=== PATIENT | female | born 1945 | race Caucasian/White ===

== ENCOUNTER 2017-04-16 13:30 | Outpatient (RCR) | payer MEDICARE, OTHER, SELFPAY ==
--- NOTE | 2017-03-06 15:10 | HP.PTEVAL_ITS ---
Patient's Visit Information CARMELO CASTRO is a 71 year old F referred to Physical Therapy by Lalita Stroud MD with a diagnosis of R shoulder strain. Date of Evaluation: 03/06/17 Physical Therapist: Rodger Welch DPT, OC - Visit Plan Frequency: 2x /Week Duration: 4-6 Weeks Plan: 2x/week for 4 -6 weeks. Pt has pacemaker. Focus on activity modification, postural correction and PROm R shoulder for painrelief. Gentle mobs, cross friction massage to R supra and shoulder. Postural and RC strength to tolerance and progress to HEP. pec stretch. ice if sore. - Subjective Subjective: R shoulder hurting for 4-6 weeks insidiously. Pain is anteriorly and toothache constantly. Radiates down to elbow and into neck at times. Arm overhead is worse and curling hair is nearly impossible. Plays alot of computer games and this may be the problem. Lifting things and reaching up is problematic. But I can do it. When it is up it does not hurt, getting it up hurts. Sleep is interrupted not sure if it is due to R shoulder ache. Takes advil rarely for the pain, 1x/week. Not employed. Basic ADL are doable but painful with R UE movement. Plays cards and on computer alot, sometimes it hurts worse. - Pain R shoulder pain. Pain Intensity (Out of 10): 1 Pain Intensity Range: 0, 8 - Objective Trasnfers and ambulation are I. Posture is forward tilted scap and protracted B. Tender to palpation moderately in R supra insertion and biceps tendon. + HK and NEer test R. - ext rotation lag test, - drop arm test. + R empty can. AROM WFL B UE but elevation of R shoulder is painful. reflexes 2/3 bi and tri. sensation EU WNL to gross light touch. Strength shoulder 4- with pain with ext rotation R. Bi and tric 4+ B without pain. wrists symmetrical and not painful. Scap ROM is limited in retraction and depression. - Goals Goal 1:: Painfree at rest and reach up with no more than 2/10 pain. Goal Time Frame: 4-6 Weeks Goal 2:: I approp HEP for posture and strengthening to minimize future problems. Goal Time Frame: 4-6 Weeks Goal 3:: Pt report 90% imporvement in overall condition and no problems sleeping. Goal Time Frame: 4-6 Weeks Goal 4:: Play on computer withuot pain increasing Goal Time Frame: 4-6 Weeks - Rehabilitation Potential Physical Therapy Diagnosis: R shoulder impingement tendonitis supraspinatus Rehabilitation Potential: Good - Anticipated Interventions Patient/Client Instruction: Educate patient on: Condition, Plan of Care For the Purpose of:: To decrease pain, To decrease swelling/inflammation Therapeutic Exercise to Include: Strength training, Flexibilty training, Passive ROM, Scapular Strength/Stabilization For the Purpose of:: To decrease pain, To decrease swelling/inflammation, To improve muscle performance and motor function, To improve ability of physical actions for home/community/work/leisure Manual Therapy Techniques to Include: Mobilization Comment: BRAEDEN oneill, grade 1 mobs R shoulder. For the Purpose of:: To decrease pain, To decrease swelling/inflammation Cryotherapy (ice pack, ice massage): Yes For the Purpose of:: To decrease swelling/inflammation Thank you for the opportunity to evaluate your patient. For Medicare and Medicare HMO plans, please review the plan of care and approve it. It will need to be FAXED BACK to us at [phone] for Medicare purposes. Please let me know if there are questions or concerns regarding this plan of care. Physician Signature: Date:
--- NOTE | 2017-04-16 13:42 | HP.PTREVAL_ITS ---
Lalita Stroud MD, It has been my pleasure to treat CARMELO CASTRO over the last 9 visits for R shoulder strain. Please see the progress note below for an update on the physical therapy plan of care! Subjective: Much better with many thi ngs, but curling hair and pushing door closed still hurt. Hurts to 7+/10. Had massage therapy. Sleep is still mildly interrupted when rolls to right.. HEP: scap ROM, has held off on band at home. Improving slowly and patient does not want further treatment from doctor. Objective/Function: Full aROM elevation slowly but without pain today. Weak in flexion and abd but not overly painful. Ext rotation is minimally painful resisted adn IR not at all. ER is 4-/5 on the right adn left. OVERALL PROGRESSING NICELY AND PT DOES NOT WANT MORE AGGRESSIVE TREATMENT. SHE IS TO CONTINUE WITH HEP AND F/U FOR CHECK UP IN 3 WEEKS. Plan Plan: F/U 3 weeks to progress to bi/tri/mil press if able adn maybe move to GTB. Goals Goal 1:: Painfree at rest and reach up with no more than 2/10 pain. Goal Time Frame: 4-6 Weeks Goal Progress: Goal Met Goal 2:: I approp HEP for posture and strengthening to minimize future problems. Goal Time Frame: 4-6 Weeks Goal Progress: Progressing Goal 3:: Pt report 90% imporvement in overall condition and no problems sleeping. Goal Time Frame: 4-6 Weeks Goal Progress: Progressing Goal 4:: Play on computer withuot pain increasing Goal Time Frame: 4-6 Weeks Goal Progress: Progressing Anticipated Interventions Patient/Client Instruction: Educate patient on: Condition, Plan of Care For the Purpose of:: To decrease pain, To decrease swelling/inflammation Therapeutic Exercise to Include: Strength training, Flexibilty training, Passive ROM, Scapular Strength/Stabilization For the Purpose of:: To decrease pain, To decrease swelling/inflammation, To improve muscle performance and motor function, To improve ability of physical actions for home/community/work/leisure Manual Therapy Techniques to Include: Mobilization Comment: CFM supra, grade 1 mobs R shoulder. For the Purpose of:: To decrease pain, To decrease swelling/inflammation Cryotherapy (ice pack, ice massage): Yes For the Purpose of:: To decrease swelling/inflammation Please do not hesitate to contact me at [phone] by phone or Fax: if you have questions or concerns regarding this new plan of care! Sincerely, Rodger Welch, DPT, OC
--- NOTE | 2017-05-05 15:22 | HP.PT.NRP ---
HP - Discharge Summary (1) - Patient Information CARMELO CASTRO was seen in my office for initial evaluation on 03/06/17. The following Plan of Care was established for this patient: Initial Frequency: 2x /Week Initial Duration: 4-6 Weeks - Anticipated Interventions Patient/Client Instruction: Educate patient on: Condition, Plan of Care For the Purpose of:: To decrease pain, To decrease swelling/inflammation Therapeutic Exercise to Include: Strength training, Flexibilty training, Passive ROM, Scapular Strength/Stabilization For the Purpose of:: To decrease pain, To decrease swelling/inflammation, To improve muscle performance and motor function, To improve ability of physical actions for home/community/work/leisure Manual Therapy Techniques to Include: Mobilization Comment: CFM supra, grade 1 mobs R shoulder. For the Purpose of:: To decrease pain, To decrease swelling/inflammation Cryotherapy (ice pack, ice massage): Yes For the Purpose of:: To decrease swelling/inflammation This patient was last seen in our office 04/16/17. Pertinent comments regarding their Physical therapy will appear below: Pt seen for 9 visits and did very well. Has called to cancel her last f/u as she is feeling better adn does not require further PT. I will discontinue her due to nonattendance. At this point I will be discontinuing this patient from physical therapy. I would be happy to see this patient again in the future if found appropriate by the physician. Thank you! Rodger Welch, DPT, OC
== END 2017-04-16 19:00 | disposition home or self-care (01) ==
LOC: PT 13:30
PROVIDERS: Family Provider Family Medicine; PCP Family Medicine; Visit Provider Family Medicine
DX: S43.401D Unspecified sprain of right shoulder joint, subsequent encounter (principal)
CPT/HCPCS: 97110; 97140; 97161; 97530

== ENCOUNTER → 2017-06-12 12:11 | Outpatient (CLI) | payer MEDICARE, OTHER, SELFPAY ==
[2017-06-12 13:23] LABS: Anion Gap 7 (5-15); BUN 13 mg/dL (7-18); BUN/Creat Ratio 12.6 RATIO (10-20); Calcium,Total 9.4 mg/dL (8.5-10.1); Chloride 102 mmol/L (98-107); Creatinine, Serum 1.03 mg/dL (0.55-1.02); EST Glomerular Filtration Rate 56 mL/min (>60); Est Glom Filt Rate - Afr Amer 68 mL/min (>60); Glucose 114 mg/dL (74-106); Potassium 3.6 mmol/L (3.5-5.1); Sodium Level 140 mmol/L (136-145)
[2017-06-12 13:29] LABS: BNP,B-Type NATRIURETIC PEPTIDE 68.1 pg/mL (0-100)
== END ==
PROVIDERS: Family Provider Family Medicine; PCP Family Medicine; Visit Provider Internal Medicine Cardiovascular Disease
DX: R06.02 Shortness of breath (principal)
CPT/HCPCS: 36415; 80048; 83880

== ENCOUNTER → 2017-09-04 15:40 | Outpatient (CLI) | payer MEDICARE, OTHER, SELFPAY ==
--- NOTE | 2017-09-04 15:40 | DT_ITS ---
This patient was seen during an EMR downtime August 31, 2017 - September 07, 2017. This patient may have a combination of paper and electronic documentation or all paper documentation. All documentation is viewable within the e-chart portion of [employer] for each patient visit.
[2017-09-08 16:49] LABS: AST(SGOT) 26 U/L (15-37); Albumin, Serum 3.8 g/dL (3.2-5.0); Alkaline Phosphatase 85 U/L (45-117); BUN 17 mg/dL (7-18); BUN/Creat Ratio 14.9 RATIO (10-20); Calcium,Total 9.1 mg/dL (8.5-10.1); Creatinine, Serum 1.14 mg/dL (0.55-1.02); EST Glomerular Filtration Rate 50 mL/min (>60); Est Glom Filt Rate - Afr Amer 61 mL/min (>60); Globulin 4.3 g/dL (2.2-4.2); Glucose 96 mg/dL (74-106); Protein, Total 8.1 g/dL (6.4-8.2)
[2017-09-08 16:50] LABS: Alanine Aminotransfer ALT/SGPT 18 U/L (13-56); Anion Gap 9 (5-15); Bilirubin, Direct 0.31 mg/dL (0.00-0.30); Chloride 102 mmol/L (98-107); Cholesterol 107 mg/dL (200); High Density Lipoprotein 26 mg/dL; Potassium 3.5 mmol/L (3.5-5.1); Sodium Level 140 mmol/L (136-145); Triglycerides 163 mg/dL; Very Low Density Lipoprotein 33 mg/dL (5-40)
== END ==
PROVIDERS: Visit Provider Family Medicine
DX: E11.9 Type 2 diabetes mellitus without complications (principal)
CPT/HCPCS: 36415; 80048; 80061; 80076

== ENCOUNTER → 2017-09-23 15:17 | Outpatient (CLI) | payer MEDICARE, OTHER, SELFPAY ==
--- NOTE | 2017-09-23 15:20 | BI_ITS ---
MAMMOGRAPHY - BILATERAL SCREENING REASON FOR EXAM: Female, 72 years old. Routine annual screening examination. PERTINENT HISTORY: Grandmother with breast cancer. Aunt with breast cancer. TECHNIQUE: Digital bilateral breast tanner (3D mammographic acquisition) in the CC and MLO projections. 2-D mediolateral oblique (MLO) and craniocaudad (CC) views of both breasts were obtained. CAD: Full Field Digital Mammography with Computer Added Detection was performed. COMPARISON: Comparison is made with prior study dated February 24, 2012 and July 05, 2010. FINDINGS: Breast Composition: There are scattered areas of fibroglandular density. There is a 6.0 mm x 6.0 mm well-defined nodular density in the deep inferior medial aspect of the right breast. Correlation with ultrasound is recommended. A pacemaker battery pack is seen in the left axillary region. No other significant abnormalities are identified. BI/SCREENING MAMM (CAD), BILAT IMPRESSION: 6 mm x 6 mm nodular density in the deep inferior medial portion of the right breast as described. Correlation with ultrasound is recommended. ASSESSMENT CATEGORY: BIRADS Category 0: Incomplete. Need additional imaging evaluation. A letter regarding these results will be sent to the patient by the facility within 30 days. Approximately 10% of breast cancers are not detected by mammography. A normal mammogram should not delay biopsy of a clinically suspicious abnormality. [id number] Electronically Signed: Nate Walker MD at 7:58 EDT Tel [phone], Service support ,
== END ==
PROVIDERS: Family Provider Family Medicine; PCP Family Medicine; Visit Provider Family Medicine
DX: Z12.31 Encounter for screening mammogram for malignant neoplasm of breast (principal)
CPT/HCPCS: 77063; 77067

== ENCOUNTER → 2017-10-05 14:06 | Outpatient (CLI) | payer MEDICARE, OTHER, SELFPAY ==
--- NOTE | 2017-10-05 14:08 | US_ITS ---
STUDY: ULTRASOUND BREAST - RIGHT REASON FOR EXAM: Female, 72 years old. Abnormal screening mammogram. TECHNIQUE: Axial and longitudinal images of the RIGHT breast were performed with a high resolution ultrasound transducer. COMPARISON: Comparison is made with prior mammogram dated September 23, 2017. FINDINGS: RIGHT Breast: There is a 6 mm x 6 mm x 6 mm complex solid and cystic nodule at the 6:00 position of the breast at 6 cm from the nipple. This may represent an hemorrhagic cyst. A biopsy is recommended for further evaluation. US/Breast Limited Unilateral IMPRESSION: 6 mm x 6 mm x 6 mm complex cystic nodule seen in the inferior aspect of the breast that 6:00 radiant. A biopsy is recommended for further evaluation. ASSESSMENT CATEGORY: BIRADS Category 4: Suspicious - Biopsy Should Be Considered. A letter regarding these results will be sent to the patient by the facility within 30 days. Electronically Signed: Nate Walker MD at 8:18 EDT Tel [phone], Service support ,
== END ==
PROVIDERS: Family Provider Family Medicine; PCP Family Medicine; Visit Provider Family Medicine
DX: R92.2 Inconclusive mammogram (principal)
CPT/HCPCS: 76642

== ENCOUNTER → 2017-10-16 14:35 | Outpatient (CLI) | payer MEDICARE, OTHER, SELFPAY ==
--- NOTE | 2017-10-16 | BRBX_PTH ---
PATIENT: CARMELO CASTRO LOC: [facility] U#:[id number] AGE/SX: 79/F ROOM: RE10/16/[address]: Dr. Brett Bergeron MD : [id number] BED: DIS: SPEC #: [id number] RECD: 10/16/17 14:45 STATUS: MODESTA RENoe #: [id number] GIACOMO: 10/16/17 00:[address]: Brett Bergeron DEPT: SURGICAL PATHOLOGY RECD BY: Luther Johnson ENTERED: 10/16/17 14:46 SP TYPE: BREAST BX OTHR DR: Dr. Lalita Stroud MD Tissues: Right breast, NOS Procedures: Surgery Specimen Level III HEADER OPERATION: Excisional biopsy right breast PRE-OP DIAGNOSIS: Abnormal mammogram R92.8 TISSUE SUBMITTED: Right breast tissue Ischemic time: 30 seconds Fixation time: 6 hours MICROSCOPIC DIAGNOSIS Right breast tissue, excisional biopsy: Epidermal inclusion cyst. SJ:sybil 10/19/17 COMMENT Breast tissue is not identified in the submitted specimen. MICROSCOPIC DESCRIPTION Slides are reviewed. GROSS DESCRIPTION Received in fixative is one container labeled with the patient's name and designated right breast tissue. The specimen consists of a piece of moreno soft tissue measuring 1 x 0.5 x 0.5 cm. The specimen is inked, bisected and submitted entirely in one cassette. / MATHEW:sybil 10/16/17 TC:5 CPT: 08425
== END ==
PROVIDERS: Family Provider Family Medicine; PCP Family Medicine; Visit Provider Surgery
DX: R92.8 Other abnormal and inconclusive findings on diagnostic imaging of breast (principal); L72.0 Epidermal cyst
CPT/HCPCS: 88304; 88305

== ENCOUNTER 2018-02-11 12:25 | Emergency (ER) | payer MEDICARE, OTHER, SELFPAY ==
[2018-02-11 12:26] VITALS: BP 185/83; PULSE 85; RESP 18; TEMP 36.6; O2SAT 93; BMI 38.0
--- NOTE | 2018-02-11 12:42 | ED.VISSUMM ---
- ER Visit Summary Date of Service: 02/11/18 Chief Complaint: Nosebleed History of Present Illness: The patient is a 72 F past medical history of noncemented diabetes, hypertension and valvular heart disease she has 2 heart valves. Other than aspirin she is on no anticoagulation. States she typically does not get nosebleeds. Had 2 minor ones several weeks ago that she got the resolve on their own. Within the last hour she had initial onset of a nosebleed on the left than the right. Denies any trauma. She does use CPAP at night. With humidified oxygen. She denies any recent hematuria or melena. No significant bruising. Physical Examination: Vital signs are stable. She is afebrile. Her initial blood pressure is Ajit 85/83. HEENT exam left side of her nose has moderate amount of blood but no large clots. There is a small amount of blood in the right. Minimal active bleeding. Posterior pharynx without blood. Neck nontender. Lungs clear to auscultation. Heart regular rhythm. Abdomen soft nontender. She is moving all 4 extremities. Neurologically she is awake and alert. Test Results: None Emergency Department Course and Treatment: Juan-Synephrine soak cotton balls replaced on both sides of her nose. I did have her blow her nose. There really were not any significant clots. A parasol pack was placed in left side of his nose which eventually failed and she had continued bleeding. I then used Johnson solution soaked cotton balls. The bleeding slowed down. Then placed a rapid Rhino in the left naris. Treatment Plan: Follow-up with her ENT tomorrow. Keflex 3 times daily to prevent nasal infection. Return if rebleeds and unable to stop. Did speak to Dr. Rolando Crawford space controller for ENT to ensure close follow-up tomorrow if at all possible. Disposition: dc Impression: Acute anterior epistaxis Nasal pack by ER (Rapid Rhino pack) This note was generated with [employer] dictation software. It may contain incorrect words, spelling, and punctuation that were not noted in review of the chart prior to signing ED Disposition - Plan for ED Patient: Chief Complaint: Nosebleed Referrals: Lalita Stroud MD [Primary Care Provider] -
--- NOTE | 2018-02-11 12:45 | ED.DCSUM_ITS ---
- ER Visit Summary Date of Service: 02/11/18 Chief Complaint: Nosebleed History of Present Illness: The patient is a 72 F past medical history of noncemented diabetes, hypertension and valvular heart disease she has 2 heart valves. Other than aspirin she is on no anticoagulation. States she typically does not get nosebleeds. Had 2 minor ones several weeks ago that she got the resolve on their own. Within the last hour she had initial onset of a nosebleed on the left than the right. Denies any trauma. She does use CPAP at night. With humidified oxygen. She denies any recent hematuria or melena. No significant bruising. Physical Examination: Vital signs are stable. She is afebrile. Her initial blood pressure is Ajit 85/83. HEENT exam left side of her nose has moderate amount of blood but no large clots. There is a small amount of blood in the right. Minimal active bleeding. Posterior pharynx without blood. Neck nontender. Lungs clear to auscultation. Heart regular rhythm. Abdomen soft nontender. She is moving all 4 extremities. Neurologically she is awake and alert. Test Results: None Emergency Department Course and Treatment: Juan-Synephrine soak cotton balls replaced on both sides of her nose. I did have her blow her nose. There really were not any significant clots. A parasol pack was placed in left side of his nose which eventually failed and she had continued bleeding. I then used Johnson solution soaked cotton balls. The bleeding slowed down. Then placed a rapid Rhino in the left naris. Treatment Plan: Follow-up with her ENT tomorrow. Keflex 3 times daily to prevent nasal infection. Return if rebleeds and unable to stop. Did speak to Dr. Rolando Crawford assistant golf professional for ENT to ensure close follow-up tomorrow if at all possible. Disposition: dc Impression: Acute anterior epistaxis Nasal pack by ER (Rapid Rhino pack) This note was generated with [employer] dictation software. It may contain incorrect words, spelling, and punctuation that were not noted in review of the chart prior to signing ED Disposition - Plan for ED Patient: Chief Complaint: Nosebleed Referrals: Lalita Stroud MD [Primary Care Provider] -
[2018-02-11] MEDS: Oxymetazoline 0.05% 1 SPRAY SPRAY.BTL NASAL (13:00)
[2018-02-11 13:18] VITALS: BP 164/71
[2018-02-11] MEDS: Oxymetazoline 0.05% 1 SPRAY SPRAY.BTL 2 SPRAY NASAL (16:52)
[2018-02-11 17:28] VITALS: BP 171/81; PULSE 63; RESP 18; O2SAT 93
--- NOTE | 2018-02-11 17:34 | ED.DEP ---
ED Disposition - Plan for ED Patient: Disposition: Home or Assisted Living Chief Complaint: Nosebleed Instructions: Nosebleed Prescriptions: Cephalexin [Keflex] 500 mg PO TID #10 cap Referrals: Omid Griffiths MD [STAFF PHYSICIAN] - 1 Day Additional Instructions: Just relax tonight at home and take it easy. The more active you are the more likely this is to restart bleeding. Call and follow up with Dr Griffiths ENT tomorrow. I spoke with his partner. No aspirin or motrin tonight. If starts bleeding again hold direct pressure for 20 minutes if unable to get bleeding stopped and you need to return to the ER.
[2018-02-11 18:32] VITALS: RESP 16
--- NOTE | 2018-02-11 18:32 | ED.RN ---
REVIEWED D/C INSTRUCTIONS, FOLLOW UP CARE, PRESCRIPTION, AND S/S THAT WOULD WARRANT A RETURN TO THE ED WITH PT. PT VERBALIZED AN UNDERSTANDING AND DENIES FURTHER QUESTIONS FOR THIS RN. PT SKIN P/W/D, RESP EVEN AND UNLABORED, PT A&O X 3, NO DISTRESS NOTED. PT AMBULATED OUT OF ED, GAIT STEADY.
--- NOTE | 2018-02-11 18:40 | ED.RN ---
WHEN PT AMBULATED, NOSE STARTED BLEEDING AGAIN.
--- NOTE | 2018-02-11 18:44 | ED.RN ---
DR. DASH AT BEDSIDE.
== END 2018-02-11 19:51 | disposition home or self-care (01) ==
PROVIDERS: Emergency Provider Emergency Medicine; Family Provider Family Medicine; PCP Family Medicine
DX: R04.0 Epistaxis (principal); E11.9 Type 2 diabetes mellitus without complications; I10 Essential (primary) hypertension
CPT/HCPCS: 30901; 99282

== ENCOUNTER → 2018-03-05 15:06 | Outpatient (CLI) | payer MEDICARE, OTHER, SELFPAY ==
[2018-02-11 12:26] VITALS: BMI 38.0
[2018-03-05 17:56] LABS: AST(SGOT) 16 U/L (15-37); Alanine Aminotransfer ALT/SGPT 13 U/L (13-56); Albumin, Serum 3.6 g/dL (3.2-5.0); Alkaline Phosphatase 87 U/L (45-117); Bilirubin, Direct 0.31 mg/dL (0.00-0.30); Cholesterol 112 mg/dL (200); Globulin 3.9 g/dL (2.2-4.2); High Density Lipoprotein 27 mg/dL; Protein, Total 7.5 g/dL (6.4-8.2); Triglycerides 148 mg/dL; Very Low Density Lipoprotein 30 mg/dL (5-40)
[2018-03-05 18:09] LABS: Absolute Lymphocyte Count 1.59 X10^3/ul (0.83-4.51); Absolute Neutrophil Count 7.4 X10^3/uL (2.0-7.7); Basophil# 0.07 X10^3/uL; Basophil% 0.7 % (0-1); Eosinophil# 0.17 X10^3/uL; Eosinophils% 1.6 % (0-5); Hematocrit 36.5 % (37-47); Lymphocyte # 1.59 X10^3/ul (4.0); Lymphocyte % 15.1 % (19-41); Mean Corp Hgb Conc 30.1 g/gl (32-36); Mean Corpuscular Hgb 27.4 pg (27.0-32.0); Mean Platelet Vol. 9.6 fl (6.2-12.0); Microalbumin,Random Urine 5.2 mg/L (NO RANGE EST.); Microalbumin:Creatinine Ratio 24.4 mg/g CRE (<30 mg/g CRE); Monocyte# 1.31 X10^3/uL; Monocyte% 12.4 % (0-10); Neutrophil # 7.38 X10^3/uL (2.7-7.7); Platelet Count 582 K/mm3 (150-450); RBC Distribution Width CV 17.9 % (11.6-14.6); RBC Distribution Width SD 58.9 fl (35.1-43.9); Red Blood Count 4.01 M/mm3 (4.2-5.4); White Blood Count 10.5 K/mm3 (4.4-11.0)
[2018-03-05 18:10] LABS: POSITIVE COUNT NO; POSITIVE DIFFERENTIAL NO; POSITIVE MORPHOLOGY NO
== END ==
PROVIDERS: Family Provider Family Medicine; PCP Family Medicine; Visit Provider Family Medicine
DX: E11.65 Type 2 diabetes mellitus with hyperglycemia (principal); R04.0 Epistaxis
CPT/HCPCS: 36415; 80061; 80076; 82043; 82570; 85025

== ENCOUNTER → 2018-05-13 16:27 | Outpatient (CLI) | payer MEDICARE, OTHER, SELFPAY ==
[2018-05-13 15:19] VITALS: BMI 38.4
--- NOTE | 2018-05-13 16:31 | RAD_ITS ---
STUDY: X-RAY CHEST REASON FOR EXAM: Female, 72 years old. Increased shortness of breath. History of heart and lung disease. TECHNIQUE: PA and lateral views of the chest. COMPARISON: PA and lateral chest x-ray as well as CTA chest October 24, 2016 FINDINGS: A single lead left subclavian cardiac pacemaker is unchanged. The lungs are clear and expanded. There is no demonstrated pleural abnormality. There is mild cardiac enlargement. Sternal cerclage wires are present from a prior sternotomy. Normal mediastinum and derek. Normal visualized pulmonary arteries. There is stable mild atherosclerotic calcification of the aortic arch. There are stable degenerative changes of the visualized thoracic spine. Normal visualized ribs, clavicles, and shoulders. There is no demonstrated abnormality of the visualized soft tissue structures of the upper abdomen. RAD/Chest PA and Lateral IMPRESSION: 1. Stable cardiac enlargement. No acute pneumonic infiltrate or CHF. 2. Prior median sternotomy. Single lead cardiac pacemaker again noted. Electronically Signed: Jsoe Nava MD at 16:35 EST , Service support ,
[2018-05-13 17:17] LABS: Anion Gap 10 (5-15); BUN 15 mg/dL (7-18); BUN/Creat Ratio 14.6 RATIO (10-20); Calcium,Total 9.1 mg/dL (8.5-10.1); Chloride 104 mmol/L (98-107); Creatinine, Serum 1.03 mg/dL (0.55-1.02); EST Glomerular Filtration Rate 56 mL/min (>60); Est Glom Filt Rate - Afr Amer 67 mL/min (>60); Glucose 124 mg/dL (74-106); Magnesium 2.2 mg/dL (1.6-2.6); Potassium 3.3 mmol/L (3.5-5.1); Sodium Level 139 mmol/L (136-145)
[2018-05-13 17:27] LABS: BNP,B-Type NATRIURETIC PEPTIDE 206.5 pg/mL (0-100)
[2018-05-13 17:52] LABS: Basophil# 0.12 X10^3/uL; Hemoglobin 9.6 g/dl (12.0-15.0)
[2018-05-13 18:05] LABS: Differential Indicated SCAN CRITERIA MET; Hematocrit 34.3 % (37-47); Mean Corpuscular Hgb 26.8 pg (27.0-32.0); Mean Corpuscular Volume 95.8 fL (81-99); Mean Platelet Vol. 9.1 fl (6.2-12.0); POSITIVE COUNT NO; POSITIVE DIFFERENTIAL YES; POSITIVE MORPHOLOGY NO; RBC Distribution Width CV 15.8 % (11.6-14.6); Red Blood Count 3.58 M/mm3 (4.2-5.4); White Blood Count 10.6 K/mm3 (4.4-11.0)
[2018-05-13 18:06] LABS: Absolute Lymphocyte Count 1.52 X10^3/ul (0.83-4.51); Absolute Neutrophil Count 7.2 X10^3/uL (2.0-7.7); Basophil% 1.1 % (0-1); Eosinophil# 0.14 X10^3/uL; Eosinophils% 1.3 % (0-5); Lymphocyte # 1.52 X10^3/ul (4.0); Lymphocyte % 14.4 % (19-41); Monocyte# 1.58 X10^3/uL; Neutrophil # 7.17 X10^3/uL (2.7-7.7)
[2018-05-13 18:19] LABS: Platelet Count 748 K/mm3 (150-450)
[2018-05-13 19:26] LABS: Anisocytosis 1+; Platelet Estimate MKD INC (ADEQ); Red Cell Morphology N CHROM NORMAL (NORM C&C)
== END ==
PROVIDERS: Family Provider Family Medicine; PCP Family Medicine; Referring Provider Nurse Practitioner Family; Visit Provider Nurse Practitioner Family
DX: R06.09 Other forms of dyspnea (principal); Z95.2 Presence of prosthetic heart valve
CPT/HCPCS: 36415; 71046; 80048; 83735; 83880; 85025

== ENCOUNTER → 2018-05-19 13:44 | Outpatient (CLI) | payer MEDICARE, OTHER, SELFPAY ==
[2018-05-13 15:19] VITALS: BMI 38.4
--- NOTE | 2018-05-19 13:46 | ECHOCS_ITS ---
Reason For Study: DYSPNEA/SOB Procedure This was a 2D Doppler, Color Flow transthoracic echocardiogram. Exam performed in department. Left Ventricle Normal LV size. Mild concentric left ventricular hypertrophy. Left ventricular systolic function is normal. The estimated ejection fraction is 60 %. No regional wall motion abnormalities noted. Right Ventricle Normal RV size. Normal systolic function. Atria The left atrium is mildly enlarged. The right atrium is mildly enlarged. Mitral Valve Peak transmitral valve gradient 22 mmHg. Mean transmitral valve gradient 6 mmHg. Moderate mitral valve stenosis. Bioprosthetic mitral valve. Tricuspid Valve Normal tricuspid valve. Mild (1+) tricuspid valve insufficiency. Pulmonary artery systolic pressure is 40 mmHg. Aortic Valve Peak aortic valve gradient 90 mmHg. Mean aortic valve gradient 55 mmHg. Severe aortic stenosis. Bioprosthetic aortic valve. Pulmonic Valve Normal pulmonic valve. Great Vessels Normal aortic root. The pulmonary artery is normal size. Normal inferior vena cava. Pericardium/Pleural No pericardial effusion. Medication 22 gauge I.V. with prn adaptor inserted into right arm. Diluted definity 2ml given slow IV push to enhance endocardial definition. MMode/2D Measurements & Calculations LVIDd: 4.2 cm IVSd: 1.3 cm LVOT diam: 2.1 cm LVIDs: 2.9 cm LVPWd: 1.5 cm RVDd: 4.2 cm FS: 30.0 % LVOT area: 3.5 cm2 Ao root diam: 3.1 cm LAV(MOD-bp): 71.0 ml LVAd ap4: 28.8 cm2 LAV(MOD-bp) Indexed: 34.7 ml/m2 EDV(MOD-sp4): 83.0 ml LAV(MOD-sp2): 73.5 ml EDV(sp4-el): 85.8 ml LAV(MOD-sp4): 62.0 ml LVAs ap4: 17.8 cm2 ESV(MOD-sp4): 38.9 ml ESV(sp4-el): 40.7 ml EF(MOD-sp4): 53.1 % EF(sp4-el): 52.6 % SV(MOD-sp4): 44.1 ml SV(sp4-el): 45.1 ml LA A4 area: 21.1 cm2 LA dimension(2D): 4.8 cm RA A4 area: 22.6 cm2 Doppler Measurements & Calculations MV E max deniz: 205.9 cm/sec MV V2 max: 238.1 cm/sec MV P1/2t max deniz: 231.1 cm/sec MV max P.7 mmHg MV P1/2t: 114.9 msec MV V2 mean: 100.7 cm/sec MV dec slope: 589.1 cm/sec2 MV mean P.0 mmHg MVA(P1/2t): 1.9 cm2 MV V2 VTI: 58.7 cm MVA(VTI): 1.2 cm2 Ao V2 max: 473.7 cm/sec LV V1 max: 85.3 cm/sec SV(LVOT): 69.4 ml Ao max P.3 mmHg LV V1 max P.9 mmHg Ao V2 mean: 352.8 cm/sec LV V1 mean P.8 mmHg Ao mean P.3 mmHg LV V1 mean: 62.7 cm/sec Ao V2 VTI: 113.0 cm LV V1 VTI: 20.1 cm BRYANNA(I,D): 0.61 cm2 BRYANNA(V,D): 0.62 cm2 PA V2 max: 131.5 cm/sec PI end-d deniz: 96.2 cm/sec TR max deniz: 295.2 cm/sec TR max P.0 mmHg MV P1/2t-pr_phl: 112.3 msec Interpretation Summary Normal LV size. Left ventricular systolic function is normal. The estimated ejection fraction is 60 %. Mean transmitral valve gradient 6 mmHg. Moderate mitral valve stenosis. Severe aortic stenosis. Bioprosthetic aortic valve. Compared to the previous the AV stenosis is worse and the MV stenosis is worse Ordering Physician: Tez Tobar/Jr Smith Referring Physician: VIVIAN BOSCH Performed By: Paige Morgan RDCS
== END ==
PROVIDERS: Family Provider Family Medicine; PCP Family Medicine; Referring Provider Nurse Practitioner Family; Visit Provider Nurse Practitioner Family
DX: R06.09 Other forms of dyspnea (principal); Z95.2 Presence of prosthetic heart valve
CPT/HCPCS: 93306; Q9957; A4216; C8929

== ENCOUNTER → 2018-05-24 14:57 | Outpatient (CLI) | payer MEDICARE, OTHER, SELFPAY ==
[2018-05-13 15:19] VITALS: BMI 38.4
[2018-05-24 18:00] LABS: Iron 77 ug/dL (50-170)
[2018-05-24 18:10] LABS: Absolute Lymphocyte Count 1.11 X10^3/ul (0.83-4.51); Absolute Neutrophil Count 7.5 X10^3/uL (2.0-7.7); Basophil# 0.11 X10^3/uL; Basophil% 1.1 % (0-1); Eosinophil# 0.11 X10^3/uL; Eosinophils% 1.1 % (0-5); Hematocrit 31.3 % (37-47); Immature Platelet Fraction 1.5 % (1.0-7.9); Lymphocyte # 1.11 X10^3/ul (4.0); Lymphocyte % 10.7 % (19-41); Mean Corp Hgb Conc 28.8 g/gl (32-36); Mean Corpuscular Hgb 27.6 pg (27.0-32.0); Mean Platelet Vol. 9.5 fl (6.2-12.0); Monocyte# 1.55 X10^3/uL; Monocyte% 14.9 % (0-10); Neutrophil # 7.46 X10^3/uL (2.7-7.7); Neutrophil % 71.6 % (47-70); Platelet Count 523 K/mm3 (150-450); RBC Distribution Width CV 17.1 % (11.6-14.6); RBC Distribution Width SD 58.7 fl (35.1-43.9); RET-HE 21.4 pg (30-35); Red Blood Count 3.26 M/mm3 (4.2-5.4); Reticulocyte Count 5.46 % (0.5-1.5); White Blood Count 10.4 K/mm3 (4.4-11.0)
[2018-05-24 18:13] LABS: Differential Indicated SCAN CRITERIA MET; POSITIVE COUNT NO; POSITIVE DIFFERENTIAL YES; POSITIVE MORPHOLOGY YES
[2018-05-24 18:49] LABS: Anisocytosis 2+; Differential Comment SCANNED; Hypochromasia 2+; Platelet Estimate SLT INC (ADEQ); Polychromasia RARE
[2018-05-24 18:50] LABS: Macrocytosis 1+; Ovalocyte RARE; Schistocytes RARE
== END ==
PROVIDERS: Family Provider Family Medicine; PCP Family Medicine; Visit Provider Family Medicine
DX: D50.0 Iron deficiency anemia secondary to blood loss (chronic) (principal)
CPT/HCPCS: 36415; 83540; 85025; 85045

== ENCOUNTER → 2018-06-01 11:36 | Outpatient (CLI) | payer MEDICARE, OTHER, SELFPAY ==
[2018-05-13 15:19] VITALS: BMI 38.4
[2018-06-01 13:10] LABS: Absolute Lymphocyte Count 1.42 X10^3/ul (0.83-4.51); Absolute Neutrophil Count 12.2 X10^3/uL (2.0-7.7); Basophil# 0.11 X10^3/uL; Basophil% 0.7 % (0-1); Differential Indicated SCAN CRITERIA MET; Eosinophil# 0.11 X10^3/uL; Eosinophils% 0.7 % (0-5); Hematocrit 23.8 % (37-47); Hemoglobin 6.6 g/dl (12.0-15.0); Immature Platelet Fraction 1.6 % (1.0-7.9); Lymphocyte # 1.42 X10^3/ul (4.0); Mean Corp Hgb Conc 27.7 g/gl (32-36); Mean Corpuscular Volume 100.8 fL (81-99); Mean Platelet Vol. 9.4 fl (6.2-12.0); Monocyte# 1.85 X10^3/uL; Monocyte% 11.7 % (0-10); Neutrophil # 12.21 X10^3/uL (2.7-7.7); Neutrophil % 76.9 % (47-70); POSITIVE COUNT NO; POSITIVE DIFFERENTIAL YES; POSITIVE MORPHOLOGY YES; Platelet Count 553 K/mm3 (150-450); RBC Distribution Width CV 20.6 % (11.6-14.6); RBC Distribution Width SD 71.3 fl (35.1-43.9); RET-HE 23.8 pg (30-35); Red Blood Count 2.36 M/mm3 (4.2-5.4); Reticulocyte Count 13.35 % (0.5-1.5); White Blood Count 15.9 K/mm3 (4.4-11.0)
[2018-06-01 13:17] LABS: Anion Gap 9 (5-15); BUN 26 mg/dL (7-18); BUN/Creat Ratio 22.6 RATIO (10-20); Calcium,Total 8.9 mg/dL (8.5-10.1); Chloride 104 mmol/L (98-107); Creatinine, Serum 1.15 mg/dL (0.55-1.02); EST Glomerular Filtration Rate 49 mL/min (>60); Est Glom Filt Rate - Afr Amer 59 mL/min (>60); Glucose 124 mg/dL (74-106); Iron 66 ug/dL (50-170); Sodium Level 138 mmol/L (136-145)
[2018-06-01 14:06] LABS: Anisocytosis 2+; Polychromasia 2+
[2018-06-01 14:07] LABS: Hypochromasia RARE
[2018-06-02 14:40] LABS: Pathologist Review Reviewed
== END ==
PROVIDERS: Family Provider Family Medicine; PCP Family Medicine; Referring Provider Family Medicine; Visit Provider Family Medicine
DX: D50.0 Iron deficiency anemia secondary to blood loss (chronic) (principal)
CPT/HCPCS: 36415; 80048; 83540; 85025; 85027; 85045

== ENCOUNTER 2018-06-01 15:06 | Inpatient (IN) | payer MEDICARE, OTHER, SELFPAY ==
[2018-05-13 15:19] VITALS: BMI 38.4
[2018-06-01] VITALS (11 sets, daily range): BP systolic 94–130; BP diastolic 48–73; PULSE 59–84; RESP 16–24; TEMP 36.5–37.1; O2SAT 95–98; BMI 37.4; BMI 36.8; BMI 36.9
--- NOTE | 2018-06-01 15:48 | EKG12_ITS ---
Test Reason : ABNL LABS Blood Pressure : / mmHG Vent. Rate : 066 BPM Atrial Rate : 051 BPM P-R Int : 000 ms QRS Dur : 154 ms QT Int : 486 ms P-R-T Axes : 000 -76 091 degrees QTc Int : 509 ms Ventricular-paced rhythm Abnormal ECG Confirmed by NORTH TORRE ([id number]), image editor PAU CLEARY ([id number]) on 06/04/2018 1:14:34 PM Referred By: Lalita Stroud Confirmed By:NORTH TORRE
--- NOTE | 2018-06-01 15:50 | RAD_ITS ---
STUDY: X-RAY CHEST REASON FOR EXAM: Female, 72 years old. Increased shortness of breath and weakness. TECHNIQUE: Portable upright chest COMPARISON: 05/13/2018 FINDINGS: Left pectoral pacer device, single wire lead, stable. Median sternotomy. Perihilar interstitial prominence and mild pulmonary vascular congestion, no dense focal infiltrate, effusion or pneumothorax. Mild cardiomegaly. Normal mediastinal silhouette, derek and pleural margins. No acute osseous or upper abdominal process. RAD/Chest 1 View (Portable) IMPRESSION: Perihilar interstitial prominence and pulmonary vascular prominence suggestive the possibility of mild CHF with no dense focal infiltrate, and no apparent effusion. Electronically Signed: Ronald Lang MD at 16:31 EST Tel , Service support ,
--- NOTE | 2018-06-01 15:55 | ED.DCSUM_ITS ---
- ER Visit Summary Date of Service: 06/01/18 Chief Complaint: Abnormal labs History of Present Illness: The patient is a 72 F presenting with abnormal labs. Patient states that she has been short of breath and lightheaded. She has not passed out. She saw her primary care physician today and outpatient blood work showed a low hemoglobin. She was seen by Dr. Smith 3 weeks ago and her iron was increased at that time. At that time her hemoglobin was 9.6. Today it was 6.6. She has had intermittent nosebleeds for the past several months but has not had one in the past week. She has nausea with no vomiting. She denies chest pain. She denies bright red blood in her stool or melena. Denies other complaints. Physical Examination: Vitals are stable. Patient is afebrile. Alert no acute distress. HEENT exam is unremarkable. Neck is supple. Lungs are clear and equal bilaterally. Heart is regular rate and rhythm. Systolic murmur Abdomen is soft nontender nondistended. Extremities are unremarkable. Skin is warm and dry. No focal neurologic deficit. Remainder of exam is unremarkable. Emergency Department Course and Treatment: EKG shows paced rhythm rate of 66. Chest xray shows perihilar interstitial prominence and pulmonary vascular prominence suggestive the possibility of mild CHF with no dense focal infiltrate, and no apparent effusion. CBC shows white count 16.2, hemoglobin 6.5. Glucose 141, BUN 31, creatinine 1.18. Troponin 0.262. Stool is guaiac negative. She was ordered 1 unit packed red blood cells. Discussed with the hospitalist for admission. Disposition: Admission Impression: Symptomatic anemia This note was generated with [employer] dictation software. It may contain incorrect words, spelling, and punctuation that were not noted in review of the chart prior to signing ED Disposition - Plan for ED Patient: Referrals: Lalita Stroud MD [Primary Care Provider] -
[2018-06-01 16:17] LABS: Absolute Lymphocyte Count 2.61 X10^3/ul (0.83-4.51); Absolute Neutrophil Count 12.9 X10^3/uL (2.0-7.7); Basophil% 0.6 % (0-1); Eosinophil# 0.05 X10^3/uL; Eosinophils% 0.3 % (0-5); Hematocrit 23.1 % (37-47); Hemoglobin 6.5 g/dl (12.0-15.0); Lymphocyte # 2.61 X10^3/ul (4.0); Lymphocyte % 16.1 % (19-41); Mean Corp Hgb Conc 28.1 g/gl (32-36); Mean Corpuscular Hgb 28.1 pg (27.0-32.0); Mean Platelet Vol. 9.1 fl (6.2-12.0); Monocyte# 0.45 X10^3/uL; Monocyte% 2.8 % (0-10); Neutrophil % 79.5 % (47-70); Platelet Count 548 K/mm3 (150-450); RBC Distribution Width CV 20.6 % (11.6-14.6); RBC Distribution Width SD 70.3 fl (35.1-43.9); Red Blood Count 2.31 M/mm3 (4.2-5.4); White Blood Count 16.2 K/mm3 (4.4-11.0)
[2018-06-01 16:20] LABS: POSITIVE COUNT NO; POSITIVE DIFFERENTIAL NO; POSITIVE MORPHOLOGY YES
[2018-06-01 16:21] LABS: Differential Indicated SCAN CRITERIA MET
[2018-06-01 16:32] LABS: Anisocytosis 2+; Platelet Estimate MOD INC (ADEQ)
[2018-06-01 16:33] LABS: Hypochromasia 1+; Macrocytosis 1+; Ovalocyte RARE; Polychromasia 1+; Target Cells RARE
[2018-06-01 16:39] LABS: Anion Gap 9 (5-15); BUN 31 mg/dL (7-18); BUN/Creat Ratio 26.3 RATIO (10-20); Calcium,Total 8.9 mg/dL (8.5-10.1); Chloride 102 mmol/L (98-107); Creatinine, Serum 1.18 mg/dL (0.55-1.02); EST Glomerular Filtration Rate 48 mL/min (>60); Est Glom Filt Rate - Afr Amer 58 mL/min (>60); Estimated Creatinine Clearance 36.67 ml/min; Glucose 141 mg/dL (74-106); Potassium 3.6 mmol/L (3.5-5.1); Sodium Level 136 mmol/L (136-145)
--- NOTE | 2018-06-01 17:41 | NURSING ---
MED SURG OBS VARSHA GOLDEN
[2018-06-01] MEDS: Ondansetron 4 MG/2 ML Vial IV (17:55)
[2018-06-01 18:46] LABS: Vitamin B12 341 pg/mL (211-911)
[2018-06-01 18:51] LABS: Ferritin 11 ng/mL (8-252); Iron 56 ug/dL (50-170); Iron Binding Capacity,Total 592 ug/dL (250-450); PERCENT IRON SATURATION 9.5 % (15.0-55.0); Thyroid Stim Hormone (TSH) 4.12 uIU/mL (0.358-3.74)
--- NOTE | 2018-06-01 19:58 | NURSING ---
AFTER ADMISSION NURSE COMPLETED WITH PT, THIS NURSE WENT TO ROOM, IT WAS 1855. UPON OPENING CHART, SAW ORDERS WERE TO ADMIT PT TO CARDIAC UNIT (PCU) D/T ANEMIA AND ELEVATED TROPONINS. THIS NURSE HAD JUST SPOKE WITH CHARGE AND ELECTRICAL CONTROLS TECHNICIAN ABOUT PT COMING TO [place] D/T ELEVATED TROPONINS. ELECTRICAL CONTROLS TECHNICIAN SAID SHE HAD ALREADY QUESTIONED DR MADDOX ABOUT ADMITTING HERE WELL;. D/T THIS, I PAGED DR MADDOX TO VERIFY IF PT WAS TO BE TRANSFERRED TO PCU AND PLACED PT ON 2L NC. I EXPLAINED TO PT AND FAMILY THAT I WANTED TO VERIFY WERE SHE WAS ACTUALLY GOING, I WAS ALSO IN THE ROOM WHEN I RECEIVED CALL THAT PT WOULD GO TO ROOM 126. . AFTER TRYING TO CALL REPORT TO PCU AT 1915, I TOLD PT AND FAMILY THAT PCU WAS IN REPORT WELL AND I WOULD CALL BACK WHEN THEY WERE FINISHED. REPORT WAS CALLED TO XU AND PT TRANSFERRED TO 126 APPROX 1950.
--- NOTE | 2018-06-01 20:05 | HP.PCM_ITS ---
Problem List (1) Acute blood loss anemia Status: Acute (2) Upper GI bleed Status: Acute (3) Epistaxis Status: Acute (4) Elevated troponin Status: Acute History of Present Illness Date of Admission: 06/01/18 Chief Complaint: weakness. shortness of breath. The patient is a 72 year old F who has been progressively short of breath for months. Has just steadily gotten worse during this period of time. No new symptoms other than today patient was having vomiting. Decision was made to bring the patient into the doctor's office and there she was found to have a hemoglobin of 6.6. Directed to the emergency room where hemoglobin was 6.5. Patient is ordered a unit of packed red blood cells. Patient denies any hematochezia nor melena. She denied any hematemesis, however, is in the room, patient started choking on some phlegm and then started vomiting and then there were streaks of blood in that. Patient states that that does not usually happen. Patient does have epistaxis was very severe back in January but has not had any severe events since then but has had some minor, per her description, bouts of epistaxis that are self remitting. 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) Medical History: Medical History (Last Reviewed 06/01/18 @ 20:04 by Rodger Nielson DO) Obesity (Chronic) E66.9 Hypertension (Chronic) I10 Persistent atrial fibrillation (Chronic) I48.1 Rheumatic mitral stenosis with insufficiency (Chronic) I05.2 Rheumatic aortic stenosis with insufficiency (Chronic) I06.2 DVT of lower extremity, bilateral I82.403 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, liver and left eye Hypothyroidism E03.9 Osteoarthritis M19.90 Rheumatic fever I00 Sleep apnea G47.30 History of hysterectomy Z90.710 Allergies Penicillins Allergy (Verified 06/01/18 15:06) Hives Nhkpjhe-Kvy-Mmj Reductase Inhibitor Adverse Reaction (Intermediate, Verified 06/01/18 15:06) myalgias codeine Adverse Reaction (Verified 06/01/18 18:22) HALLUCINATIONS morphine Adverse Reaction (Verified 06/01/18 18:22) HALLUCINATIONS Home Medications: Ambulatory Orders Medication Instructions Recorded Vit C/E/Zn/Coppr/Lutein/Zeaxan 1 ea PO DAILY 10/24/16 [Preservision Areds 2 Softgel] albuterol sulfate HFA 90 2 puff INHALATION Q6H PRN PRN 06/11/17 mcg/actuation aerosol inhaler fluticasone 250 mcg-salmeterol 50 1 inh INHALATION Q12H 06/11/17 mcg/dose blistr powdr for inhalation levothyroxine 50 mcg tablet 50 mcg PO DAILY tab 06/11/17 metformin ER 750 mg 750 mg PO DAILY 30 Days #30 06/11/17 tablet,extended release 24 hr furosemide 40 mg tablet 40 mg PO DAILY #90 tab 06/12/17 ferrous sulfate 325 mg (65 mg 325 mg PO DAILY tab 05/14/18 iron) tablet,delayed release Aspirin [Aspir 81] 81 mg PO DAILY 06/01/18 Cetirizine HCl [Zyrtec] 10 mg PO DAILY 06/01/18 Cholecalciferol (VIT D3) [Vitamin 1,000 unit PO DAILY 06/01/18 D] Fenofibrate Nanocrystallized 145 mg PO DAILY 06/01/18 [Tricor] Losartan Potassium 100 mg PO DAILY 06/01/18 Multivitamin with Minerals 1 each PO DAILY 06/01/18 [Multiple Vitamin] Potassium Chloride [Klor-Con M20] 40 meq PO DAILY 06/01/18 Surgical History: Surgical History (Last Reviewed 06/01/18 @ 20:04 by Rodger Nielson DO) Presence of cardiac pacemaker (Chronic) Onset Date: ~01/10/15 Z95.0 History of radiofrequency ablation procedure for cardiac arrhythmia (Chronic) Onset Date: ~01/10/15 Z98.890 AV Junction Ablation H/O mitral valve replacement (Chronic) Onset Date: ~04/26/09 Z95.2 H/O aortic valve replacement (Chronic) Onset Date: ~04/26/09 Z95.2 History of appendectomy Z90.49 History of tonsillectomy and adenoidectomy Z98.890 History of removal of cyst Z98.890 right breast Hx of cholecystectomy Z90.49 history bilateral cataract surgery tracheostomy Onset Date: ~12/03/07 Smoking Status: Former smoker Tobacco Use: Cigarettes - *Family History Maternal Family History: Family History (Last Reviewed 06/01/18 @ 20:04 by Rodger Nielson DO) Brother CAD (coronary artery disease) Father Heart disease Cancer Grandmother Breast cancer Review of Systems Constitutional: Reports: Malaise, Weakness. Denies: Anorexia, Chills, Fever, Weight Change Eyes: Denies: Blurred vision, Double vision HEENT: Reports: Nasal bleeding. Denies: Head Aches, Sinus Congestion, Sinus Drainage Cardiovascular: Reports: Edema. Denies: Chest Pain Respiratory: Reports: Shortness of breath upon exertion. Denies: Cough Gastrointestinal: Reports: Hematemesis, Nausea, Vomiting. Denies: Abdominal Pain, Constipation, Diarrhea, Dyspepsia, Hematochezia, Melena Genitourinary: Denies: Dysuria Musculoskeletal: Denies: Joint Pain, Joint Tenderness Skin: Denies: Rash, Wounds Neurological: Denies: Blurred vision, Double vision, Focal weakness, Numbness, Tingling Psychiatric: Denies: Homicidal Ideations, Suicidal Ideations Endocrine: Denies: Change in Body Habitus, Heat/ Cold Intolerance Hematologic/ Lymphatic: Reports: Easy Bleeding. Denies: Easy Bruising, Hx of blood clot Comment: A 10 point review of systems were negative except as mentioned in the history of present illness and the other review of systems. VTE Information - Inpt Only VTE Present on Admission: No VTE Mechan Device Prophylaxis: SCD's VTE Pharm Prophylaxis ordered?: No Reason prophylaxis not ordered:: Medical Contraindication Patient Problems: Active and Suspected Problems (Last Reviewed 01/12/18 @ 11:21 by Jr Smith MD) Acute blood loss anemia (Acute) Upper GI bleed (Acute) Epistaxis (Acute) Elevated troponin (Acute) - Physical Exam General: Alert, Cooperative, - - Started choking on some phlegm and gagging and then eventually threw up. Patient wiped her mouth and then there is streaks of blood on the towel. Patient looks much better after vomiting. HEENT: Atraumatic, Normocephalic, - - Some fresh blood on bilateral anterior septum was roughly about half a millimeter in diameter. Oral: Moist Mucosa, No Gingival or Mucosal Lesions/ Ulcerations Neck: No Nodes, Thyroid Normal Size and Texture Lungs: Clear to auscultation, Normal air movement, No rhonchi, No wheeze Cardiovascular: Regular rate, Regular Rhythm, No murmurs Abdomen: Bowel Sounds Present, Soft, Non Tender, Non-Distended, No Hepato- splenomegaly Extremities: No Calf Tenderness, Edema - Trace Skin: No rashes, No breakdown Musculoskeletal: No Tenderness to Palpation of Joints or Extremities, No Muscle Wasting Neurological: Neuro grossly intact, Muscle tone normal Psych/Mental Status: Normal Affect, Appropriate Vital Signs Temp Pulse Resp BP Pulse Ox 36.8 C 64 16 124/58 H 96 06/01/18 20:00 06/01/18 20:00 06/01/18 20:00 06/01/18 20:00 06/01/18 20:00 Oxygen Delivery Method Room Air Weight: 97.522 kg Body Mass Index (BMI) 36.8 Microbiology Past 72 Hours 06/01/18 16:10 Stool Occult Blood (RAMSES) - Final Stool Laboratory Tests Past 24 Hrs 06/01/18 06/01/18 06/01/18 15:59 15:59 17:40 WBC 16.2 H RBC 2.31 L Hgb 6.5 L Hct 23.1 L MCV 100.0 H MCH 28.1 MCHC 28.1 L RDW 20.6 H RDW Differential 70.3 H Plt Count 548 H MPV 9.1 Immature Gran % (Auto) 0.700 Neut % (Auto) 79.5 H Lymph % (Auto) 16.1 L Morgan % (Auto) 2.8 Eos % (Auto) 0.3 Baso % (Auto) 0.6 Absolute Neuts (auto) 12.9 H Absolute Lymphs (auto) 2.61 Total Counted Not Reportable Diff Path Review May foll Platelet Estimate MOD INC Polychromasia 1+ Hypochromasia 1+ Anisocytosis 2+ Macrocytosis 1+ Target Cells RARE Ovalocytes RARE Sodium 136 Potassium 3.6 Chloride 102 Carbon Dioxide 25.0 Anion Gap 9 BUN 31 H Creatinine 1.18 H Estim Creat Clear Calc 36.67 Est GFR (MDRD) Af Amer 58 L Est GFR (MDRD) Non-Af 48 L BUN/Creatinine Ratio 26.3 H Glucose 141 H Calcium 8.9 Iron TIBC Iron Saturation Ferritin Troponin I 0.262 H Vitamin B12 341 Folate TSH Blood Type Antibody Screen Crossmatch 06/01/18 06/01/18 17:40 17:40 WBC RBC Hgb Hct MCV MCH MCHC RDW RDW Differential Plt Count MPV Immature Gran % (Auto) Neut % (Auto) Lymph % (Auto) Morgan % (Auto) Eos % (Auto) Baso % (Auto) Absolute Neuts (auto) Absolute Lymphs (auto) Total Counted Diff Path Review Platelet Estimate Polychromasia Hypochromasia Anisocytosis Macrocytosis Target Cells Ovalocytes Sodium Potassium Chloride Carbon Dioxide Anion Gap BUN Creatinine Estim Creat Clear Calc Est GFR (MDRD) Af Amer Est GFR (MDRD) Non-Af BUN/Creatinine Ratio Glucose Calcium Iron 56 TIBC 592 H Iron Saturation 9.5 L Ferritin 11 Troponin I Vitamin B12 Folate 17.80 TSH 4.12 H Blood Type Pending Antibody Screen Pending Crossmatch See Detail Clinical Impression(s) from Imaging Studies Chest X-Ray 06/01/18 15:50 IMPRESSION: Perihilar interstitial prominence and pulmonary vascular prominence suggestive the possibility of mild CHF with no dense focal infiltrate, and no apparent effusion. Electronically Signed: Ronald Lang MD at 16:31 EST Tel , Service support , Assessment/Plan All Active Problems (Last Reviewed 01/12/18 @ 11:21 by Jr Smith MD) Acute blood loss anemia (Acute) Upper GI bleed (Acute) Epistaxis (Acute) Elevated troponin (Acute) Dyspnea on exertion (Acute) 1. Acute blood loss anemia: Patient is iron deficient with a very low ferritin though her iron level is actually normal. Patient to receive a unit of packed red blood cells from the emergency room. We will also start the patient on Venofer. I feel that the etiology is actually not but more likely due to her chronic epistaxis and chronic aspirin use. We will hold the aspirin and monitor her hemoglobin. 2. Hematemesis: Mild and not copious by any means. Reveals prior related with her retching than anything. But given the scant quantity of ulcer. Patient is never had an EGD before. Patient has had a colonoscopy about 5 years ago that was deemed unremarkable at that time. Discussed with Dr. Breaux, who will see the patient in consultation and may proceed with endoscopy on the 6. Patient will be started on Protonix 80 mg tonight and then 40mg twice daily IV. Patient be n.p.o. in the morning. 3. Elevated troponin: Patient has known severe aortic stenosis on top of her anemia I feel this is probably more likely demand ischemia. We will cycle troponins and monitor. Cardiology on consultation 4.: Aortic stenosis: Patient recently recently had an echocardiogram that showed severe stenosis of by his prosthetic heart valve. Cardiology on consult. 5. DVT prophylaxis with SCDs. Chemical prophylaxis contraindicated in light of the active hematemesis. Code Visit Inpatient E&M: 62228 Init Hosp L3
[2018-06-01 23:21] LABS: Bedside Glucose 154 mg/dL (70-110)
[2018-06-02] VITALS (22 sets, daily range): BP systolic 90–137; BP diastolic 44–78; PULSE 60–67; RESP 14–20; TEMP 36.1–37.8; O2SAT 95–100; BMI 36.8
--- NOTE | 2018-06-02 | GASB_PTH ---
[id number] U#:[id number] AGE/SX: 72/F ROOM: [facility] RE06/01/[address]: Dr. Yvan Duran MD : 1945 BED: 1 DIS: 06/04/2018 SPEC #: [id number] RECD: 06/02/18 14:19 STATUS: MODESTA CROCKER #: [id number] GIACOMO: 06/02/18 00:[address]: Gloria Wallace DEPT: SURGICAL PATHOLOGY RECD BY: Luther Johnson ENTERED: 06/02/18 14:19 SP TYPE: Gastric Bx OTHR DR: MD Dr. Jr Thorne MD Dr. Eric Jopperi, DO Dr. Nicholas F Kotsonis, MD Dr. Tamera Robotham, MD Tissues: Gastric mucous membrane Procedures: Surgery Specimen Level IV Comments: @ Ordering doctor for ADEIV edited from to @ by JORDI at 06/02/18 1545 @ Submitting doctor edited from to @ by RGOOD at 06/02/18 1545 HEADER OPERATION: EGD ([facility] [place]) PRE-OP DIAGNOSIS: Anemia TISSUE SUBMITTED: Antral biopsy for histo and H. pylori MICROSCOPIC DIAGNOSIS Gastric antrum, biopsy: Mild chronic gastritis. See comment. AM:sybil 06/03/18 COMMENT The results of immunohistochemistry for Helicobacter pylori will be reported separately ([id number]). MICROSCOPIC DESCRIPTION Slides are reviewed. GROSS DESCRIPTION Received in fixative is one container labeled with the patient's name and designated antral biopsy. The specimen consists of one irregular fragment of light moreno soft tissue that measures 0.3 x 0.3 x 0.1 cm. The specimen is totally submitted in one cassette. / AM:sybil 06/02/18 TC:3 CPT: 60876
[2018-06-02] MEDS: 0.9% NaCl Peripheral Flush Adult/Peds IV ×3 (00:06→01:00)
[2018-06-02 06:23] LABS: Absolute Lymphocyte Count 1.72 X10^3/ul (0.83-4.51); Absolute Neutrophil Count 13.3 X10^3/uL (2.0-7.7); Basophil# 0.09 X10^3/uL; Basophil% 0.5 % (0-1); Eosinophil# 0.07 X10^3/uL; Eosinophils% 0.4 % (0-5); Hematocrit 22.1 % (37-47); Hemoglobin 6.4 g/dl (12.0-15.0); Lymphocyte # 1.72 X10^3/ul (4.0); Lymphocyte % 9.8 % (19-41); Mean Corpuscular Hgb 28.4 pg (27.0-32.0); Mean Corpuscular Volume 98.2 fL (81-99); Mean Platelet Vol. 9.1 fl (6.2-12.0); Monocyte# 2.27 X10^3/uL; Monocyte% 12.9 % (0-10); Neutrophil # 13.28 X10^3/uL (2.7-7.7); Neutrophil % 75.6 % (47-70); Platelet Count 486 K/mm3 (150-450); RBC Distribution Width CV 20.4 % (11.6-14.6); Red Blood Count 2.25 M/mm3 (4.2-5.4); White Blood Count 17.6 K/mm3 (4.4-11.0)
[2018-06-02 06:27] LABS: Differential Indicated SCAN CRITERIA MET; POSITIVE COUNT NO; POSITIVE DIFFERENTIAL YES; POSITIVE MORPHOLOGY YES
[2018-06-02 06:35] LABS: Anion Gap 9 (5-15); BUN 34 mg/dL (7-18); BUN/Creat Ratio 31.2 RATIO (10-20); Calcium,Total 8.1 mg/dL (8.5-10.1); Chloride 105 mmol/L (98-107); Creatinine, Serum 1.09 mg/dL (0.55-1.02); EST Glomerular Filtration Rate 52 mL/min (>60); Est Glom Filt Rate - Afr Amer 63 mL/min (>60); Estimated Creatinine Clearance 39.69 ml/min; Free T3 1.9 pg/mL (2.18-3.98); Glucose 139 mg/dL (74-106); Potassium 4.1 mmol/L (3.5-5.1); Sodium Level 137 mmol/L (136-145)
[2018-06-02 06:40] LABS: Anisocytosis 2+; Hypochromasia 1+; Platelet Estimate SLT INC (ADEQ); Polychromasia 1+
[2018-06-02 06:56] LABS: Bedside Glucose 150 mg/dL (70-110)
[2018-06-02 07:57] LABS: AST(SGOT) 31 U/L (15-37); Alanine Aminotransfer ALT/SGPT 16 U/L (13-56); Alkaline Phosphatase 61 U/L (45-117); Bilirubin, Direct 0.37 mg/dL (0.00-0.30); Globulin 3.2 g/dL (2.2-4.2); Protein, Total 6.2 g/dL (6.4-8.2)
[2018-06-02] MEDS: Budesonide Respules 0.5 MG/2 ML AMPUL.NEB. INHALATION ×2 (07:57→18:53)
--- NOTE | 2018-06-02 07:57 | PCM.CONS.GEN ---
Reason for Consult Date of Consultation: 06/02/18 History of Present Illness: The patient is a 72 year old F presented to the ER due to shortness of breath. She states it has been getting worse since last fall. Patient has been on iron supplements as well. Patient's hemoglobin in the ER was 6.5. Patient's hemoglobin mid last month was 9. Patient states she did have a nosebleed last January to last about 8-1/2 hours which she had to go to the ER for. She states since then she has a nosebleed about every once every 10 days states she is usually has some coughing and then start running out of her nose but she is able to control it with just pressure. Patient states that her last one was on Thursday. Patient states she has bowel movements daily which are brown or occasionally a little darker due to the iron but denies any bright red blood. Patient's fecal occult on admit was negative. Patient denies any vomiting or abdominal pain states she has been eating well. Denies any burning with urination. Patient also has white blood cell count on admission of 16. Patient has a past medical history for a mitral and aortic valve replacement along with current severe aortic stenosis, patient is status post ablation and pacer done in 2009. 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 Patient states she is only had an issue with the one behind her eyes she has had to have laser surgery. Patient did receive 1 unit of packed red blood cells last night and her hemoglobin this morning is 6.4. 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) Medical History: Medical History (Last Reviewed 06/01/18 @ 20:04 by Rodger Nielson DO) Obesity (Chronic) E66.9 Hypertension (Chronic) I10 Persistent atrial fibrillation (Chronic) I48.1 Rheumatic mitral stenosis with insufficiency (Chronic) I05.2 Rheumatic aortic stenosis with insufficiency (Chronic) I06.2 DVT of lower extremity, bilateral I82.403 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, liver and left eye Hypothyroidism E03.9 Osteoarthritis M19.90 Rheumatic fever I00 Sleep apnea G47.30 History of hysterectomy Z90.710 Allergies Penicillins Allergy (Verified 06/01/18 15:06) Hives Ryaovys-Jmp-Zra Reductase Inhibitor Adverse Reaction (Intermediate, Verified 06/01/18 15:06) myalgias codeine Adverse Reaction (Verified 06/01/18 18:22) HALLUCINATIONS morphine Adverse Reaction (Verified 06/01/18 18:22) HALLUCINATIONS Home Medications: Ambulatory Orders Medication Instructions Recorded Vit C/E/Zn/Coppr/Lutein/Zeaxan 1 ea PO DAILY 10/24/16 [Preservision Areds 2 Softgel] albuterol sulfate HFA 90 2 puff INHALATION Q6H PRN PRN 06/11/17 mcg/actuation aerosol inhaler fluticasone 250 mcg-salmeterol 50 1 inh INHALATION Q12H 06/11/17 mcg/dose blistr powdr for inhalation levothyroxine 50 mcg tablet 50 mcg PO DAILY tab 06/11/17 metformin ER 750 mg 750 mg PO DAILY 30 Days #30 06/11/17 tablet,extended release 24 hr furosemide 40 mg tablet 40 mg PO DAILY #90 tab 06/12/17 ferrous sulfate 325 mg (65 mg 325 mg PO DAILY tab 05/14/18 iron) tablet,delayed release Aspirin [Aspir 81] 81 mg PO DAILY 06/01/18 Cetirizine HCl [Zyrtec] 10 mg PO DAILY 06/01/18 Cholecalciferol (VIT D3) [Vitamin 1,000 unit PO DAILY 06/01/18 D] Fenofibrate Nanocrystallized 145 mg PO DAILY 06/01/18 [Tricor] Losartan Potassium 100 mg PO DAILY 06/01/18 Multivitamin with Minerals 1 each PO DAILY 06/01/18 [Multiple Vitamin] Potassium Chloride [Klor-Con M20] 40 meq PO DAILY 06/01/18 Surgical History: Surgical History (Last Reviewed 06/01/18 @ 20:04 by Rodger Nielson DO) Presence of cardiac pacemaker (Chronic) Onset Date: ~10/14/15 Z95.0 History of radiofrequency ablation procedure for cardiac arrhythmia (Chronic) Onset Date: ~01/10/15 Z98.890 AV Junction Ablation H/O mitral valve replacement (Chronic) Onset Date: ~04/26/09 Z95.2 H/O aortic valve replacement (Chronic) Onset Date: ~04/26/09 Z95.2 History of appendectomy Z90.49 History of tonsillectomy and adenoidectomy Z98.890 History of removal of cyst Z98.890 right breast Hx of cholecystectomy Z90.49 history bilateral cataract surgery tracheostomy Onset Date: ~12/03/07 Smoking Status: Former smoker Tobacco Use: Cigarettes - *Family History Maternal Family History: Family History (Last Reviewed 06/01/18 @ 20:04 by Rodger Nielson DO) Brother CAD (coronary artery disease) Father Heart disease Cancer Grandmother Breast cancer Review of Systems Constitutional: Denies: Anorexia, Fever HEENT: Denies: Difficulty Swallowing Cardiovascular: Denies: Chest Pain Respiratory: Reports: Hemoptysis - minimal, Shortness of Breath Gastrointestinal: Denies: Abdominal Pain, Constipation, Diarrhea, Melena Genitourinary: Denies: Dysuria Neurological: Denies: Blurred vision Psychiatric: Denies: Anxiety, Depression Hematologic/ Lymphatic: Reports: Anemia Patient Problems: Active and Suspected Problems (Last Reviewed 06/01/18 @ 20:04 by Rodger Nielson DO) Acute blood loss anemia (Acute) Upper GI bleed (Acute) Epistaxis (Acute) Elevated troponin (Acute) - Physical Exam General: Alert, Cooperative, No apparent distress HEENT: Atraumatic Lungs: Clear to auscultation Cardiovascular: Regular rate, Murmur - Holosystolic murmur Abdomen: Soft, Non Tender, Non-Distended Extremities: No clubbing, No cyanosis Skin: No rashes Neurological: Cranial nerves II-XII grossly intact Psych/Mental Status: Normal Affect Vital Signs Temp Pulse Resp BP Pulse Ox 98.8 F 61 16 131/67 H 98 06/02/18 06:02 06/02/18 07:48 06/02/18 06:02 06/02/18 06:02 06/02/18 06:02 Oxygen Flow Rate (L/min) 1 Oxygen Delivery Method Room Air Weight: 215 lb Body Mass Index (BMI) 36.8 Intake and Output for Last 24 Hours 05/31/18 06/01/18 06/02/18 23:59 23:59 23:59 Intake Total 0 / 0 931 / 931 Balance 0 / 0 931 / 931 Microbiology Past 72 Hours 06/01/18 16:10 Stool Occult Blood (RAMSES) - Final Stool Laboratory Tests Past 24 Hrs 06/01/18 06/01/18 06/01/18 15:59 15:59 17:40 WBC 16.2 H RBC 2.31 L Hgb 6.5 L Hct 23.1 L MCV 100.0 H MCH 28.1 MCHC 28.1 L RDW 20.6 H RDW Differential 70.3 H Plt Count 548 H MPV 9.1 Immature Gran % (Auto) 0.700 Neut % (Auto) 79.5 H Lymph % (Auto) 16.1 L [place] % (Auto) 2.8 Eos % (Auto) 0.3 Baso % (Auto) 0.6 Absolute Neuts (auto) 12.9 H Absolute Lymphs (auto) 2.61 Total Counted Not Reportable Differential Comment Diff Path Review May foll Platelet Estimate MOD INC Polychromasia 1+ Hypochromasia 1+ Anisocytosis 2+ Macrocytosis 1+ Target Cells RARE Ovalocytes RARE Sodium 136 Potassium 3.6 Chloride 102 Carbon Dioxide 25.0 Anion Gap 9 BUN 31 H Creatinine 1.18 H Estim Creat Clear Calc 36.67 Est GFR (MDRD) Af Amer 58 L Est GFR (MDRD) Non-Af 48 L BUN/Creatinine Ratio 26.3 H Glucose 141 H Calcium 8.9 Iron TIBC Iron Saturation Ferritin Total Bilirubin Direct Bilirubin AST ALT Alkaline Phosphatase Troponin I 0.262 H Total Protein Albumin Globulin Vitamin B12 341 Folate TSH Free T4 Free T3 pg/dL Blood Type Antibody Screen Crossmatch 06/01/18 06/01/18 06/01/18 17:40 17:40 20:26 WBC RBC Hgb Hct MCV MCH MCHC RDW RDW Differential Plt Count MPV Immature Gran % (Auto) Neut % (Auto) Lymph % (Auto) [place] % (Auto) Eos % (Auto) Baso % (Auto) Absolute Neuts (auto) Absolute Lymphs (auto) Total Counted Differential Comment Diff Path Review Platelet Estimate Polychromasia Hypochromasia Anisocytosis Macrocytosis Target Cells Ovalocytes Sodium Potassium Chloride Carbon Dioxide Anion Gap BUN Creatinine Estim Creat Clear Calc Est GFR (MDRD) Af Amer Est GFR (MDRD) Non-Af BUN/Creatinine Ratio Glucose Calcium Iron 56 TIBC 592 H Iron Saturation 9.5 L Ferritin 11 Total Bilirubin Direct Bilirubin AST ALT Alkaline Phosphatase Troponin I 0.548 H Total Protein Albumin Globulin Vitamin B12 Folate 17.80 TSH 4.12 H Free T4 Free T3 pg/dL Blood Type O NEGATIVE Antibody Screen NEGATIVE Crossmatch See Detail 06/01/18 06/02/18 06/02/18 23:20 05:40 05:40 WBC 17.6 H RBC 2.25 L Hgb 6.4 L Hct 22.1 L MCV 98.2 MCH 28.4 MCHC 29.0 L RDW 20.4 H RDW Differential 69.0 H Plt Count 486 H MPV 9.1 Immature Gran % (Auto) 0.800 Neut % (Auto) 75.6 H Lymph % (Auto) 9.8 L [place] % (Auto) 12.9 H Eos % (Auto) 0.4 Baso % (Auto) 0.5 Absolute Neuts (auto) 13.3 H Absolute Lymphs (auto) 1.72 Total Counted Not Reportable Differential Comment Diff Path Review May foll Platelet Estimate SLT INC Polychromasia 1+ Hypochromasia 1+ Anisocytosis 2+ Macrocytosis Target Cells Ovalocytes Sodium 137 Potassium 4.1 Chloride 105 Carbon Dioxide 23.0 Anion Gap 9 BUN 34 H Creatinine 1.09 H Estim Creat Clear Calc 39.69 Est GFR (MDRD) Af Amer 63 Est GFR (MDRD) Non-Af 52 L BUN/Creatinine Ratio 31.2 H Glucose 139 H Calcium 8.1 L Iron TIBC Iron Saturation Ferritin Total Bilirubin Direct Bilirubin AST ALT Alkaline Phosphatase Troponin I 0.838 H* Total Protein Albumin Globulin Vitamin B12 Folate TSH Free T4 1.00 Free T3 pg/dL 1.9 L Blood Type Antibody Screen Crossmatch 06/02/18 05:40 WBC RBC Hgb Hct MCV MCH MCHC RDW RDW Differential Plt Count MPV Immature Gran % (Auto) Neut % (Auto) Lymph % (Auto) [place] % (Auto) Eos % (Auto) Baso % (Auto) Absolute Neuts (auto) Absolute Lymphs (auto) Total Counted Differential Comment Diff Path Review Platelet Estimate Polychromasia Hypochromasia Anisocytosis Macrocytosis Target Cells Ovalocytes Sodium Potassium Chloride Carbon Dioxide Anion Gap BUN Creatinine Estim Creat Clear Calc Est GFR (MDRD) Af Amer Est GFR (MDRD) Non-Af BUN/Creatinine Ratio Glucose Calcium Iron TIBC Iron Saturation Ferritin Total Bilirubin 0.50 Direct Bilirubin 0.37 H AST 31 ALT 16 Alkaline Phosphatase 61 Troponin I Total Protein 6.2 L Albumin 3.0 L Globulin 3.2 Vitamin B12 Folate TSH Free T4 Free T3 pg/dL Blood Type Antibody Screen Crossmatch POC Glucose 06/02/18 06/01/18 06:49 22:51 POC Glucose 150 H 154 H Assessment/Plan All Active Problems (Last Reviewed 06/01/18 @ 20:04 by Rodger Nielson, ) Acute blood loss anemia (Acute) Upper GI bleed (Acute) Epistaxis (Acute) Elevated troponin (Acute) Dyspnea on exertion (Acute) 72-year-old female with anemia, elevated troponins-demand ischemia, severe aortic stenosis s/p aortic/mitral valve replacement 2009, s/p pacer 1. Anemia- will plan to give patient another unit of packed red blood cells as her hemoglobin after the 1 unit yesterday was 6.4. I have offered the patient EGD for evaluation. Unsure if we will likely find something as patient's fecal occult was negative and she does denied any blood in her stool. Patient also has elevated troponins however did discuss cardiology and they believe this is demand ischemia. I have explained the risks/benefits of the procedure and described the procedure. I have discussed the risks with the patient, including but not limited to: infection, bleeding, perforation of the GI tract requiring emergency surgery, inability to complete the procedure, injury to any internal organs, complications of anesthesia, etc. - the patient understands and agrees to proceed. I have answered all the patient's questions to the patient's satisfaction and the patient has no further questions. Gloria Wallace M.D. Pager: [phone] [facility] [address] [place] [address], [facility], [address] [place] [address] Office: [phone] Code Visit Inpatient E&M: 07982 Init Hosp L2
[2018-06-02] MEDS: Ondansetron 4 MG/2 ML Vial IV (08:49)
--- NOTE | 2018-06-02 08:50 | PCM.CONS.C ---
Reason for Consult Date of Consultation: 06/02/18 Reason for Consultation: Shortness of breath and abnormal troponin History of Present Illness: The patient is a 72 year old F who has been progressively short of breath for months. She does have a history of chronic atrial fibrillation mitral valve replacement aortic valve replacement and status post pacemaker placement who says that she has has just steadily gotten worse during this period of time. No new symptoms other than today patient was having vomiting. Decision was made to bring the patient into the doctor's office and there she was found to have a hemoglobin of 6.6. Directed to the emergency room where hemoglobin was 6.5. Patient is ordered a unit of packed red blood cells. Patient denies any hematochezia nor melena. She denied any hematemesis, however, is in the room, patient started choking on some phlegm and then started vomiting and then there were streaks of blood in that. Patient states that that does not usually happen. Patient does have epistaxis was very severe back in January but has not had any severe events since then but has had some minor, per her description, bouts of epistaxis that are self remitting. Was recently seen in the administrative project coordinator office and at that time was noted to have a hemoglobin of 9. [] Past Medical History Allergies/Adverse Reactions: Allergies Penicillins Allergy (Verified 06/01/18 15:06) Hives Qovqyag-Kaq-Ruc Reductase Inhibitor Adverse Reaction (Intermediate, Verified 06/01/18 15:06) myalgias codeine Adverse Reaction (Verified 06/01/18 18:22) HALLUCINATIONS morphine Adverse Reaction (Verified 06/01/18 18:22) HALLUCINATIONS Home Medications: Ambulatory Orders Medication Instructions Recorded Vit C/E/Zn/Coppr/Lutein/Zeaxan 1 ea PO DAILY 10/24/16 [Preservision Areds 2 Softgel] albuterol sulfate HFA 90 2 puff INHALATION Q6H PRN PRN 06/11/17 mcg/actuation aerosol inhaler fluticasone 250 mcg-salmeterol 50 1 inh INHALATION Q12H 06/11/17 mcg/dose blistr powdr for inhalation levothyroxine 50 mcg tablet 50 mcg PO DAILY tab 06/11/17 metformin ER 750 mg 750 mg PO DAILY 30 Days #30 06/11/17 tablet,extended release 24 hr furosemide 40 mg tablet 40 mg PO DAILY #90 tab 06/12/17 ferrous sulfate 325 mg (65 mg 325 mg PO DAILY tab 05/14/18 iron) tablet,delayed release Aspirin [Aspir 81] 81 mg PO DAILY 06/01/18 Cetirizine HCl [Zyrtec] 10 mg PO DAILY 06/01/18 Cholecalciferol (VIT D3) [Vitamin 1,000 unit PO DAILY 06/01/18 D] Fenofibrate Nanocrystallized 145 mg PO DAILY 06/01/18 [Tricor] Losartan Potassium 100 mg PO DAILY 06/01/18 Multivitamin with Minerals 1 each PO DAILY 06/01/18 [Multiple Vitamin] Potassium Chloride [Klor-Con M20] 40 meq PO DAILY 06/01/18 Past Medical History (Chronic Problems): Chronic Problems (Last Reviewed 06/01/18 @ 20:04 by Rodger Nielson DO) Obesity (Chronic) Hypertension (Chronic) Presence of cardiac pacemaker (Chronic ~01/10/15) Persistent atrial fibrillation (Chronic) History of radiofrequency ablation procedure for cardiac arrhythmia (Chronic ~01/10/15) AV Junction Ablation H/O mitral valve replacement (Chronic ~04/26/09) H/O aortic valve replacement (Chronic ~04/26/09) 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 Denies: Chest Discomfort, Orthopnea, PND, Peripheral Edema, Palpitations, Lightheadedness, Dizziness, Near Syncope, Syncope Respiratory: Denies: Cough, Sputum Production, Hemoptysis Gastrointestinal: Denies: Hematemesis, Hematochezia, Melena Genitourinary: Denies: Dysuria, Hematuria Muscoloskeletal: Denies: Myalgias Skin: Denies: Rash Neurological: Reports: Dizziness Psychiatric: Denies: Anxiety Endocrine: Denies: Unexplained Weight Loss Hematologic/ Lymphatic: Reports: Anemia Subjectve: Pleasant is seen and evaluated. Objective: Vital Signs Temp Pulse Resp BP Pulse Ox 98.8 F 61 16 131/67 H 98 06/02/18 06:02 06/02/18 07:48 06/02/18 06:02 06/02/18 06:02 06/02/18 06:02 Oxygen Flow Rate (L/min) 1 Oxygen Delivery Method Room Air Weight: 215 lb Body Mass Index (BMI) 36.8 Intake and Output for Last 24 Hours 05/31/18 06/01/18 06/02/18 23:59 23:59 23:59 Intake Total 0 / 0 93 / 931 Balance 0 / 0 93 93 General: Awake, Alert, Oriented x 3 HEENT: PERRL, EOMI, Sclera Non Icteric Neck: Supple, Good ROM, No Lymph Node Enlargement Lungs: Clear to auscultation Cardiovascular: Regular Rhythm, Normal S1, Normal S2, No Murmurs, No Rubs, No Gallops, [place] Prosthetic S1 Vascular: No Carotid Bruits, Normal Femoral Pulses, Normal Radial Pulses, Normal Dorsalis Pedal Pulse, Normal Posterior Tibial Pulses Abdomen: Bowel Sounds Present, Soft, Non Tender, No HSM, No Organomegaly Extremities: No Cyanosis, No Clubbing, No edema Musculoskeletal: No Erythema Skin: No Rashes Lymphatic: No Lymph Node Enlargement Neurological: No Focal Motor or Sensory Deficit Psych/Mental Status: Appropriate 06/01/18 15:59: WBC 16.2 H, RBC 2.31 L, Hgb 6.5 L, Hct 23.1 L, MCV 100.0 H, MCH 28.1, MCHC 28.1 L, RDW 20.6 H, RDW Differential 70.3 H, Plt Count 548 H, MPV 9.1, Immature Gran % (Auto) 0.700, Neut % (Auto) 79.5 H, Lymph % (Auto) 16.1 L, [place] % (Auto) 2.8, Eos % (Auto) 0.3, Baso % (Auto) 0.6, Absolute Neuts (auto) 12.9 H, Total Counted Not Reportable 06/01/18 15:59: Sodium 136, Potassium 3.6, Chloride 102, Carbon Dioxide 25.0, Anion Gap 9, BUN 31 H, Creatinine 1.18 H, Est GFR (MDRD) Af Amer 58 L, Est GFR (MDRD) Non-Af 48 L, BUN/Creatinine Ratio 26.3 H, Glucose 141 H, Calcium 8.9, Troponin I 0.262 H 06/01/18 17:40: Iron 56, TIBC 592 H, Iron Saturation 9.5 L, Ferritin 11 06/01/18 20:26: Troponin I 0.548 H 06/01/18 23:20: Troponin I 0.838 H* 06/02/18 05:40: WBC 17.6 H, RBC 2.25 L, Hgb 6.4 L, Hct 22.1 L, MCV 98.2, MCH 28.4, MCHC 29.0 L, RDW 20.4 H, RDW Differential 69.0 H, Plt Count 486 H, MPV 9.1, Immature Gran % (Auto) 0.800, Neut % (Auto) 75.6 H, Lymph % (Auto) 9.8 L, [place] % (Auto) 12.9 H, Eos % (Auto) 0.4, Baso % (Auto) 0.5, Absolute Neuts (auto) 13.3 H, Total Counted Not Reportable 06/02/18 05:40: Sodium 137, Potassium 4.1, Chloride 105, Carbon Dioxide 23.0, Anion Gap 9, BUN 34 H, Creatinine 1.09 H, Est GFR (MDRD) Af Amer 63, Est GFR (MDRD) Non-Af 52 L, BUN/Creatinine Ratio 31.2 H, Glucose 139 H, Calcium 8.1 L 06/02/18 05:40: Total Bilirubin 0.50, Direct Bilirubin 0.37 H Rhythm: EKG: Fibrillation with ventricular paced rhythm. Assessment/Plan 1. Shortness of breath. Etiology of her shortness of breath is likely secondary to the severe anemia. A year ago she had a hemoglobin of over 12. It appears that she has had a slow bleed. She is not on anticoagulation secondary to the cavernous hemangioma. At this time I think that she can go ahead and have an EGD. She had a recent echocardiogram which demonstrated normally functioning prosthetic mitral and aortic valve. I do not think there is a reason to repeat this at this time. 2. Atrial fibrillation: She does have a history of chronic atrial fibrillation but she cannot be anticoagulated due to her cavernous hemangioma. Ventricular response rate is controlled 3. Status post pacemaker placement She does have a ventricular pacemaker which continues to be evaluated through our office. Will continue current medical therapy. 4. Valvular heart disease She does have a history of a prosthetic aortic and mitral valve. Her prosthetic aortic valve demonstrated increased gradients. I suspect this was on the basis of her anemia. I may recommend repeating her echocardiogram after her hemoglobin has been corrected.. No changes were made with respect to the above. 5. Abnormal troponin This is likely secondary to demand ischemia. After her hemoglobin has stabilized and there is an etiology for the anemia she may need to undergo further cardiac evaluation. Of note was the fact that her last stress test however did not demonstrate any evidence of ischemia. Thank you for allowing me to participate in the care of your patient. Please don't hesitate to call if any issues arise
--- NOTE | 2018-06-02 08:56 | CON.PCM_ITS ---
Reason for Consult Date of Consultation: 06/02/18 Reason for Consultation: Shortness of breath and abnormal troponin History of Present Illness: The patient is a 72 year old F who has been progressively short of breath for months. She does have a history of chronic atrial fibrillation mitral valve replacement aortic valve replacement and status post pacemaker placement who says that she has has just steadily gotten worse during this period of time. No new symptoms other than today patient was having vomiting. Decision was made to bring the patient into the doctor's office and there she was found to have a hemoglobin of 6.6. Directed to the emergency room where hemoglobin was 6.5. Patient is ordered a unit of packed red blood cells. Patient denies any hematochezia nor melena. She denied any hematemesis, however, is in the room, patient started choking on some phlegm and then started vomiting and then there were streaks of blood in that. Patient states that that does not usually happen. Patient does have epistaxis was very severe back in January but has not had any severe events since then but has had some minor, per her description, bouts of epistaxis that are self remitting. Was recently seen in the fishing lure assembler office and at that time was noted to have a hemoglobin of 9. [] Past Medical History Allergies/Adverse Reactions: Allergies Penicillins Allergy (Verified 06/01/18 15:06) Hives [id number] Reductase Inhibitor Adverse Reaction (Intermediate, Verified 06/01/18 15:06) myalgias codeine Adverse Reaction (Verified 06/01/18 18:22) HALLUCINATIONS morphine Adverse Reaction (Verified 06/01/18 18:22) HALLUCINATIONS Home Medications: Ambulatory Orders Medication Instructions Recorded Vit C/E/Zn/Coppr/Lutein/Zeaxan 1 ea PO DAILY 10/24/16 [Preservision Areds 2 Softgel] albuterol sulfate HFA 90 2 puff INHALATION Q6H PRN PRN 06/11/17 mcg/actuation aerosol inhaler fluticasone 250 mcg-salmeterol 50 1 inh INHALATION Q12H 06/11/17 mcg/dose blistr powdr for inhalation levothyroxine 50 mcg tablet 50 mcg PO DAILY tab 06/11/17 metformin ER 750 mg 750 mg PO DAILY 30 Days #30 06/11/17 tablet,extended release 24 hr furosemide 40 mg tablet 40 mg PO DAILY #90 tab 06/12/17 ferrous sulfate 325 mg (65 mg 325 mg PO DAILY tab 05/14/18 iron) tablet,delayed release Aspirin [Aspir 81] 81 mg PO DAILY 06/01/18 Cetirizine HCl [Zyrtec] 10 mg PO DAILY 06/01/18 Cholecalciferol (VIT D3) [Vitamin 1,000 unit PO DAILY 06/01/18 D] Fenofibrate Nanocrystallized 145 mg PO DAILY 06/01/18 [Tricor] Losartan Potassium 100 mg PO DAILY 06/01/18 Multivitamin with Minerals 1 each PO DAILY 06/01/18 [Multiple Vitamin] Potassium Chloride [Klor-Con M20] 40 meq PO DAILY 06/01/18 Past Medical History (Chronic Problems): Chronic Problems (Last Reviewed 06/01/18 @ 20:04 by Rodger Nielson DO) Obesity (Chronic) Hypertension (Chronic) Presence of cardiac pacemaker (Chronic ~01/10/15) Persistent atrial fibrillation (Chronic) History of radiofrequency ablation procedure for cardiac arrhythmia (Chronic ~01/10/15) AV Junction Ablation H/O mitral valve replacement (Chronic ~04/26/09) H/O aortic valve replacement (Chronic ~04/26/09) 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 Denies: Chest Discomfort, Orthopnea, PND, Peripheral Edema, Palpitations, Lightheadedness, Dizziness, Near Syncope, Syncope Respiratory: Denies: Cough, Sputum Production, Hemoptysis Gastrointestinal: Denies: Hematemesis, Hematochezia, Melena Genitourinary: Denies: Dysuria, Hematuria Muscoloskeletal: Denies: Myalgias Skin: Denies: Rash Neurological: Reports: Dizziness Psychiatric: Denies: Anxiety Endocrine: Denies: Unexplained Weight Loss Hematologic/ Lymphatic: Reports: Anemia Subjectve: Pleasant is seen and evaluated. Objective: Vital Signs Temp Pulse Resp BP Pulse Ox 98.8 F 61 16 131/67 H 98 06/02/18 06:02 06/02/18 07:48 06/02/18 06:02 06/02/18 06:02 06/02/18 06:02 Oxygen Flow Rate (L/min) 1 Oxygen Delivery Method Room Air Weight: 215 lb Body Mass Index (BMI) 36.8 Intake and Output for Last 24 Hours 05/31/18 06/01/18 06/02/18 23:59 23:59 23:59 Intake Total 0 / 0 93 / 931 Balance 0 / 0 93 93 General: Awake, Alert, Oriented x 3 HEENT: PERRL, EOMI, Sclera Non Icteric Neck: Supple, Good ROM, No Lymph Node Enlargement Lungs: Clear to auscultation Cardiovascular: Regular Rhythm, Normal S1, Normal S2, No Murmurs, No Rubs, No Gallops, Sabine Prosthetic S1 Vascular: No Carotid Bruits, Normal Femoral Pulses, Normal Radial Pulses, Normal Dorsalis Pedal Pulse, Normal Posterior Tibial Pulses Abdomen: Bowel Sounds Present, Soft, Non Tender, No HSM, No Organomegaly Extremities: No Cyanosis, No Clubbing, No edema Musculoskeletal: No Erythema Skin: No Rashes Lymphatic: No Lymph Node Enlargement Neurological: No Focal Motor or Sensory Deficit Psych/Mental Status: Appropriate 06/01/18 15:59: WBC 16.2 H, RBC 2.31 L, Hgb 6.5 L, Hct 23.1 L, MCV 100.0 H, MCH 28.1, MCHC 28.1 L, RDW 20.6 H, RDW Differential 70.3 H, Plt Count 548 H, MPV 9.1, Immature Gran % (Auto) 0.700, Neut % (Auto) 79.5 H, Lymph % (Auto) 16.1 L, [place] % (Auto) 2.8, Eos % (Auto) 0.3, Baso % (Auto) 0.6, Absolute Neuts (auto) 12.9 H, Total Counted Not Reportable 06/01/18 15:59: Sodium 136, Potassium 3.6, Chloride 102, Carbon Dioxide 25.0, Anion Gap 9, BUN 31 H, Creatinine 1.18 H, Est GFR (MDRD) Af Amer 58 L, Est GFR (MDRD) Non-Af 48 L, BUN/Creatinine Ratio 26.3 H, Glucose 141 H, Calcium 8.9, Troponin I 0.262 H 06/01/18 17:40: Iron 56, TIBC 592 H, Iron Saturation 9.5 L, Ferritin 11 06/01/18 20:26: Troponin I 0.548 H 06/01/18 23:20: Troponin I 0.838 H* 06/02/18 05:40: WBC 17.6 H, RBC 2.25 L, Hgb 6.4 L, Hct 22.1 L, MCV 98.2, MCH 28.4, MCHC 29.0 L, RDW 20.4 H, RDW Differential 69.0 H, Plt Count 486 H, MPV 9.1, Immature Gran % (Auto) 0.800, Neut % (Auto) 75.6 H, Lymph % (Auto) 9.8 L, [place] % (Auto) 12.9 H, Eos % (Auto) 0.4, Baso % (Auto) 0.5, Absolute Neuts (auto) 13.3 H, Total Counted Not Reportable 06/02/18 05:40: Sodium 137, Potassium 4.1, Chloride 105, Carbon Dioxide 23.0, Anion Gap 9, BUN 34 H, Creatinine 1.09 H, Est GFR (MDRD) Af Amer 63, Est GFR (MDRD) Non-Af 52 L, BUN/Creatinine Ratio 31.2 H, Glucose 139 H, Calcium 8.1 L 06/02/18 05:40: Total Bilirubin 0.50, Direct Bilirubin 0.37 H Rhythm: EKG: Fibrillation with ventricular paced rhythm. Assessment/Plan 1. Shortness of breath. * Etiology of her shortness of breath is likely secondary to the severe anemia. A year ago she had a hemoglobin of over 12. It appears that she has had a slow bleed. * She is not on anticoagulation secondary to the cavernous hemangioma. * At this time I think that she can go ahead and have an EGD. She had a recent echocardiogram which demonstrated normally functioning prosthetic mitral and aortic valve. I do not think there is a reason to repeat this at this time. * 2. Atrial fibrillation: * She does have a history of chronic atrial fibrillation but she cannot be anticoagulated due to her cavernous hemangioma. * Ventricular response rate is controlled * 3. Status post pacemaker placement * She does have a ventricular pacemaker which continues to be evaluated through our office. * Will continue current medical therapy. * 4. Valvular heart disease * She does have a history of a prosthetic aortic and mitral valve. * Her prosthetic aortic valve demonstrated increased gradients. I suspect this was on the basis of her anemia. I may recommend repeating her echocardiogram after her hemoglobin has been corrected.. * No changes were made with respect to the above. * * 5. Abnormal troponin * This is likely secondary to demand ischemia. After her hemoglobin has stabilized and there is an etiology for the anemia she may need to undergo further cardiac evaluation. Of note was the fact that her last stress test however did not demonstrate any evidence of ischemia. * * Thank you for allowing me to participate in the care of your patient. Please don't hesitate to call if any issues arise
--- NOTE | 2018-06-02 09:53 | CASEMGMT ---
AIDA BEVERLY assessment: Face to Face with patient for initial transition planning/care coordination assessment. AIDA BEVERLY introduced self and role at [facility], pt voices understanding and consents to assessment at this time. Pt is sitting up in chair in no distress at this time. Pt is A/Ox4 at this time and answers all questions appropriately at this time. Pt's daughter is at bedside during assessment. Care providers, pharmacy, and demographics verified/updated at this time. PCP: [facility] Specialists: jhonatan Alexandra; Luis, cardio; Gersmsilvio, retinal Preferred Pharmacy: [facility] Insurance: [place] A/B, [employer] Prescription Benefit: [employer] Living Will/HPOA: Pt states that she has LW/HPOA and is aware that they are not currently on file at [facility] at this time. Pt states that her daughter, Megan Curtis, is HPOA. LNOK: Megan Curtis(HPOA), daughter; Daniel Curtis, son-in-law; Luther Flores, son Living Arrangements: Pt states lives alone in 1 story home with 5 steps in and states no concerns at home at this time. Pt states is normally independent with ADL's. Transportation: Pt states drives self and states no transportation concerns at this time. DME/HHC: Pt states has the following DME but does not use: walker, raised toilet seat, and shower chair. Pt does have CPAP with 1 liter oxygen bleed in thru [facility] at this time. Pt states is unable to switch to any other company until she hits the 5 year gertrude which will be 03/2020. Pt state no hx of SNF or HHC in the past. Pt states no concerns with going home at time of discharge. Pt states is retired. Pt states does not smoke or drink ETOH. Pt states no further concerns/needs at this time. CM to follow for any further discharge planning/needs. Advised pt to ask for CM if any further questions/concerns/needs arise, voices understanding. Plan: [place] AIDA BEVERLY
--- NOTE | 2018-06-02 11:30 | IMM_PTH ---
PATIENT: CARMELO CASTRO LOC: [facility] U#:[id number] AGE/SX: 72/F ROOM: [facility] RE06/01/[address]: Dr. Yvan Duran MD : [id number] BED: 1 DIS: 06/04/2018 SPEC #: [id number] RECD: 06/03/18 08:04 STATUS: MODESTA RENoe #: [id number] GIACOMO: 06/02/18 11:[address]: Gloria Wallace DEPT: IMMUNOHISTOCHEMISTRY RECD BY: Sosa Mix ENTERED: 06/03/18 08:04 SP TYPE: IMMUNO OTHR DR: MD Dr. Jr Thorne MD Dr. Eric Jopperi, DO Dr. Nicholas F Kotsonis, MD Tissues: Stomach, NOS Procedures: H Pylori (initial) PHYSICIAN & INSTITUTION [place] [id number] SPECIMEN INFORMATION: Tissue Source: Antral biopsy Clinical Info: Kael Specimen Number: [id number] CPT code: 82921 METHODOLOGY: Deparaffinized sections of prefer/formalin-fixed tissue or PAP/DQ stained slides are incubated with monoclonal/polyclonal antibodies/oligonucleotide probes. Localization is made via biotin free immunoperoxidase method. Appropriate controls are performed and reacted as expected. Results on target cell population are indicated in the following table: RESULTS: ANTIBODY / CLONE RESULT H Pylori (polyclonal) negative These tests were developed and their performance characteristics determined by [facility]. They may not have been cleared or approved by the U.S. Food and Drug Administration. The FDA has determined that such clearance or approval is not necessary. INTERPRETATION: Antral biopsy: Negative for Helicobacter pylori organisms. AM:sybil 06/03/18
--- NOTE | 2018-06-02 11:36 | OP.ENDO_ITS ---
06/02/2018 Lalita Stroud [address] [place] [address] Re : Upper GI endoscopy procedure for Geno Flores Dear Dr. Stroud This procedure was performed on Saturday, June 02, 2018. My impressions and recommendations are as follows: Impressions : - Z-line regular, 35 cm from the incisors. - Normal examined duodenum. - Erythematous mucosa in the antrum. Biopsied. Recommendations : - Await pathology results. - [facility]. - ok for Cardiac diet [Duration]. - Continue present medications. My findings are described in the full procedure note, which is enclosed. If I can be of further assistance, please feel free to contact me at Doctor phone number(s): , Work: . Sincerely, MD Gloria Tracy MD 06/02/2018 11:35:37 AM This report has been signed electronically.
[2018-06-02] MEDS: Albuterol 2.5 MG/3 ML VIAL.NEB. INHALATION (12:20)
--- NOTE | 2018-06-02 12:38 | CASEMGMT ---
Patient has a Healthcare POA and Healthcare LW. She is aware they are not on file at [facility] and will try to bring them in or have someone bring them to [facility]. Her daughter Megan Curtis is her POA. Keara SHIN MSW
[2018-06-02] MEDS: Loratadine 10 MG Tablet PO (12:45)
[2018-06-02] MEDS: Furosemide 40 MG Tablet PO (12:46)
[2018-06-02] MEDS: Losartan Potassium 100 MG Tablet PO (12:46)
[2018-06-02] MEDS: Fenofibrate 145 MG Tablet PO (12:46)
[2018-06-02] MEDS: Multivitamin (Healthy Eyes) Capsule 1 CAP PO (12:46)
[2018-06-02] MEDS: Multivitamins,Ther W-Minerals Tablet 1 TABLET PO (12:47)
[2018-06-02] MEDS: Ferrous Sulfate 325 MG Tablet PO (12:47)
[2018-06-02 13:21] LABS: Bedside Glucose 146 mg/dL (70-110)
--- NOTE | 2018-06-02 13:55 | CHAPLAIN ---
Type of Pastoral Visit _x__ Initial Visit ___ Follow-up Visit ___ On-call Visit ___ General Patient Visit ___ Spiritual Assessment ___ Family Conference ___ Bereavement ___ Rapid Response ___ Code Blue ___ Other (describe below) Pastoral Care Referral From _x__ Patient ___ Family ___ Nurse ___ Physician ___ Head End Desizing Machine Operator ___ Senior Project Controls Specialist ___ Other (describe below) Sacrament/Intervention _x__ Active listening ___ Anointing ___ Religious ___ Bereavement ___ Communion ___ Sagrario exploration ___ ___ Life review ___ Prayer ___ Reconciliation ___ Sacrament of Sick ___ Supportive presence ___ Wedding ___ Other (describe below) Pastoral Comments patient reports having good support and that family has contacted her lutheran; pt says that she is doing fine otherwise and would like to take a nap at this time;
[2018-06-02 14:14] LABS: LDH 255 U/L (84-246)
[2018-06-02 14:41] LABS: Pathologist Review Reviewed
[2018-06-02 14:43] LABS: Pathologist Review Reviewed
--- NOTE | 2018-06-02 16:17 | PCM.PN.HOSP ---
Patient Problems: Active and Suspected Problems (Last Reviewed 06/01/18 @ 20:04 by Rodger Nielson DO) Acute blood loss anemia (Acute) Upper GI bleed (Acute) Epistaxis (Acute) Elevated troponin (Acute) Subjective: She feels a little bit better today than she did when she came in yesterday, however she does still feel washed out and weak. Also she does have a little bit of shortness of breath that is improved after the 2 transfusions. Vitals/I&O's: Vital Signs Temp Pulse Resp BP Pulse Ox 99.4 F H 61 18 127/53 H 97 06/02/18 13:00 06/02/18 14:51 06/02/18 13:00 06/02/18 13:00 06/02/18 13:00 Oxygen Flow Rate (L/min) 2 Oxygen Delivery Method Room Air Weight: 215 lb Body Mass Index (BMI) 36.8 Intake and Output for Last 24 Hours 05/31/18 06/01/18 06/02/18 23:59 23:59 23:59 Intake Total 0 / 0 2557 / 2557 Balance 0 / 0 2557 / 2557 General: Alert, Oriented x3, Cooperative, No apparent distress HEENT: Atraumatic, PERRLA, EOMI, Normocephalic, - - Pale conjunctiva Oral: Dry Mucosa Neck: Supple, No JVD, Trachea Midline Lungs: Clear to auscultation, Normal air movement, No rhonchi, No wheeze, No rales Cardiovascular: Regular rate, Regular Rhythm, Normal S1, Normal S2, Murmur - 3 out of 6 SONIA which gets softer with inspiration and louder with expiration Abdomen: Soft, Non Tender, Non-Distended, No Hepato-splenomegaly Extremities: No edema, Capillary Refill Less than 3 Seconds Skin: No rashes, No breakdown Neurological: Neuro grossly intact, Sensory exam intact to light touch and pain Psych/Mental Status: Normal Affect, Appropriate Microbiology Past 72 Hours 06/01/18 16:10 Stool Stool Occult Blood (RAMSES) - Final Laboratory Results 06/01/18 15:59: WBC 16.2 H, RBC 2.31 L, Hgb 6.5 L, Hct 23.1 L, MCV 100.0 H, MCH 28.1, MCHC 28.1 L, RDW 20.6 H, RDW Differential 70.3 H, Plt Count 548 H, MPV 9.1, Immature Gran % (Auto) 0.700, Neut % (Auto) 79.5 H, Lymph % (Auto) 16.1 L, [place] % (Auto) 2.8, Eos % (Auto) 0.3, Baso % (Auto) 0.6, Absolute Neuts (auto) 12.9 H, Absolute Lymphs (auto) 2.61, Total Counted Not Reportable, Diff Path Review Reviewed, Platelet Estimate MOD INC, Polychromasia 1+, Hypochromasia 1+, Anisocytosis 2+, Macrocytosis 1+, Target Cells RARE, Ovalocytes RARE 06/01/18 15:59: Sodium 136, Potassium 3.6, Chloride 102, Carbon Dioxide 25.0, Anion Gap 9, BUN 31 H, Creatinine 1.18 H, Estim Creat Clear Calc 36.67, Est GFR (MDRD) Af Amer 58 L, Est GFR (MDRD) Non-Af 48 L, BUN/Creatinine Ratio 26.3 H, Glucose 141 H, Calcium 8.9, Troponin I 0.262 H 06/01/18 17:40: Vitamin B12 341 06/01/18 17:40: Iron 56, TIBC 592 H, Iron Saturation 9.5 L, Ferritin 11, Folate 17.80, TSH 4.12 H 06/01/18 17:40: Blood Type O NEGATIVE, Antibody Screen NEGATIVE, Crossmatch See Detail 06/01/18 17:40: Crossmatch See Detail 06/01/18 17:40: Direct Antiglob Test NEG w/POLYSPECIFIC 06/01/18 20:26: Troponin I 0.548 H 06/01/18 22:51: POC Glucose 154 H 06/01/18 23:20: Troponin I 0.838 H* 06/02/18 05:40: WBC 17.6 H, RBC 2.25 L, Hgb 6.4 L, Hct 22.1 L, MCV 98.2, MCH 28.4, MCHC 29.0 L, RDW 20.4 H, RDW Differential 69.0 H, Plt Count 486 H, MPV 9.1, Immature Gran % (Auto) 0.800, Neut % (Auto) 75.6 H, Lymph % (Auto) 9.8 L, [place] % (Auto) 12.9 H, Eos % (Auto) 0.4, Baso % (Auto) 0.5, Absolute Neuts (auto) 13.3 H, Absolute Lymphs (auto) 1.72, Total Counted Not Reportable, Differential Comment , Diff Path Review Reviewed, Platelet Estimate SLT INC, Polychromasia 1+, Hypochromasia 1+, Anisocytosis 2+ 06/02/18 05:40: Sodium 137, Potassium 4.1, Chloride 105, Carbon Dioxide 23.0, Anion Gap 9, BUN 34 H, Creatinine 1.09 H, Estim Creat Clear Calc 39.69, Est GFR (MDRD) Af Amer 63, Est GFR (MDRD) Non-Af 52 L, BUN/Creatinine Ratio 31.2 H, Glucose 139 H, Calcium 8.1 L, Free T4 1.00, Free T3 pg/dL 1.9 L 06/02/18 05:40: Total Bilirubin 0.50, Direct Bilirubin 0.37 H, AST 31, ALT 16, Alkaline Phosphatase 61, Total Protein 6.2 L, Albumin 3.0 L, Globulin 3.2 06/02/18 05:40: Lactate Dehydrogenase 255 H 06/02/18 06:49: POC Glucose 150 H 06/02/18 12:54: POC Glucose 146 H Current Medications Acetaminophen (Tylenol) 650 mg PO Q6H PRN PRN PRN Reason: Mild Pain (1-3)/Temp > 100.7 F Albuterol Sulfate (Ventolin Aerosols) 2.5 mg INHALATION Q4H PRN PRN PRN Reason: SOB &/OR WHEEZING Albuterol Sulfate (Ventolin Aerosols) 2.5 mg INHALATION Q6HWA.RT [facility] Last Admin: 06/02/18 12:20 Dose: 2.5 mg Budesonide (Pulmicort Aerosol) 0.5 mg INHALATION Q12H.RT [facility] Last Admin: 06/02/18 07:57 Dose: 0.5 mg Cholecalciferol (Vitamin D) 1,000 unit PO DAILY [facility] Last Admin: 06/02/18 12:46 Dose: 1,000 unit Dextrose (D50w Syringe) 0 gm IV X1 PRN; Protocol PRN Reason: Hypoglycemia Fenofibrate (Tricor) 145 mg PO DAILY [facility] Last Admin: 06/02/18 12:46 Dose: 145 mg Ferrous Sulfate (Ferrous Sulfate) 325 mg PO DAILY@1200 [facility] Last Admin: 06/02/18 12:47 Dose: 325 mg Furosemide (Lasix) 40 mg PO DAILY [facility] Last Admin: 06/02/18 12:46 Dose: 40 mg Glucagon () 1 mg IM .X1 PRN PRN Reason: Hypoglycemia Pantoprazole Sodium 40 mg/ (Sodium Chloride) 110 mls @ 330 mls/hr IV Q12 [facility] Last Admin: 06/02/18 08:49 Dose: 330 mls/hr Insulin Human Lispro (Humalog Kwikpen (Bkc)) 0 unit SQ TIDAC [facility]; Protocol Last Admin: 06/02/18 12:54 Dose: Not Given Levothyroxine Sodium (Synthroid) 50 mcg PO DAILY@0600 [facility] Last Admin: 06/02/18 06:15 Dose: Not Given Loratadine (Claritin) 10 mg PO DAILY [facility] Last Admin: 06/02/18 12:45 Dose: 10 mg Losartan Potassium (Cozaar) 100 mg PO DAILY [facility] Last Admin: 06/02/18 12:46 Dose: 100 mg Magnesium Hydroxide (Milk Of Magnesia) 30 ml PO DAILY PRN PRN Reason: Constipation Multivitamins/Minerals (Multivitamin With Minerals) 1 tablet PO DAILY@1200 [facility] Last Admin: 06/02/18 12:47 Dose: 1 tablet Multivitamins/Minerals (Healthy Eyes) 1 capsule PO DAILY [facility] Last Admin: 06/02/18 12:46 Dose: 1 capsule Ondansetron HCl (Zofran) 4 mg IV Q8H PRN PRN PRN Reason: NAUSEA Last Admin: 06/02/18 08:49 Dose: 4 mg Oxycodone HCl (Oxyir) 5 mg PO Q4H PRN PRN PRN Reason: MOD-SEVERE PAIN (4-10/10) Potassium Chloride (K-Dur) 40 meq PO DAILY@0800 [facility] Last Admin: 06/02/18 12:44 Dose: 40 meq Sodium Chloride () 5 - 15 ml IV UD PRN PRN Reason: SALINE FLUSH Last Admin: 06/02/18 01:00 Dose: 10 ml Medical Necessity - Tobacco Use Smoking Status: Former smoker Tobacco Use: Cigarettes Assessment/Plan All Active Problems (Last Reviewed 06/01/18 @ 20:04 by Rodger Jopperi, DO) Acute blood loss anemia (Acute) Upper GI bleed (Acute) Epistaxis (Acute) Elevated troponin (Acute) Dyspnea on exertion (Acute) 1. Acute blood loss anemia/hematemesis/history of cavernous hemangiomas -Has hemangiomas behind her eyes, and her brain, and in her liver. -Fecal occult stool has been negative -EGD was normal, with only mild gastritis can decrease PPI to Pepcid -She received 1 unit of PRBCs yesterday and her hemoglobin did not respond she did receive a second unit this afternoon and no recheck is pending -LFTs were added to her morning labs and her direct bili was slightly elevated so an LDH and haptoglobin were obtained as well as a direct Chaya, direct Chaya and heptoglobin are pending however the LDH is slightly elevated once again, though some of these values are elevated the degree of elevation does not indicate a hemolytic process -She does have a leukocytosis so she is afebrile, will obtain a UA -Unsure where she is bleeding from, she had a colonoscopy 6 years ago and it was normal and at that time they were knocking to repeat another one ever again because of how tortuous her colon anatomy was -May need to proceed with a bleeding scan and/or CT abdomen pelvis with contrast, can also consider liver ultrasound to evaluate this liver hemangioma -She did receive an iron infusion yesterday, can proceed with daily iron -Iron level was normal however ferritin was 11 and total iron binding capacity was high with an iron saturation that was low, indicating an iron deficiency anemia 2. 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 fib/elevated troponin/HTN/HLD -Candidate for anticoagulation given her hemangiomas -Worsening aortic valve and mitral valve stenosis -Appreciate cardiology input -Troponin elevation secondary to demand ischemia -Valves are bioprosthetic therefore unlikely to be contributing to any anemia -Continue with her losartan, Lasix and fenofibrate but hold aspirin 3. DM 2 -She is on metformin at home, will hold -Continue with sliding scale insulin and Accu-Cheks DVT: SCDs Code Visit Inpatient E&M: 33285 Subs Hosp L2
--- NOTE | 2018-06-02 16:29 | PN_ITS ---
Patient Problems: Active and Suspected Problems (Last Reviewed 06/01/18 @ 20:04 by Rodger Nielson DO) Acute blood loss anemia (Acute) Upper GI bleed (Acute) Epistaxis (Acute) Elevated troponin (Acute) Subjective: She feels a little bit better today than she did when she came in yesterday, however she does still feel washed out and weak. Also she does have a little bit of shortness of breath that is improved after the 2 transfusions. Vitals/I&O's: Vital Signs Temp Pulse Resp BP Pulse Ox 99.4 F H 61 18 127/53 H 97 06/02/18 13:00 06/02/18 14:51 06/02/18 13:00 06/02/18 13:00 06/02/18 13:00 Oxygen Flow Rate (L/min) 2 Oxygen Delivery Method Room Air Weight: 215 lb Body Mass Index (BMI) 36.8 Intake and Output for Last 24 Hours 05/31/18 06/01/18 06/02/18 23:59 23:59 23:59 Intake Total 0 / 0 2557 / 2557 Balance 0 / 0 2557 / 2557 General: Alert, Oriented x3, Cooperative, No apparent distress HEENT: Atraumatic, PERRLA, EOMI, Normocephalic, - - Pale conjunctiva Oral: Dry Mucosa Neck: Supple, No JVD, Trachea Midline Lungs: Clear to auscultation, Normal air movement, No rhonchi, No wheeze, No rales Cardiovascular: Regular rate, Regular Rhythm, Normal S1, Normal S2, Murmur - 3 out of 6 SONIA which gets softer with inspiration and louder with expiration Abdomen: Soft, Non Tender, Non-Distended, No Hepato-splenomegaly Extremities: No edema, Capillary Refill Less than 3 Seconds Skin: No rashes, No breakdown Neurological: Neuro grossly intact, Sensory exam intact to light touch and pain Psych/Mental Status: Normal Affect, Appropriate Microbiology Past 72 Hours 06/01/18 16:10 Stool Stool Occult Blood (RAMSES) - Final Laboratory Results 06/01/18 15:59: WBC 16.2 H, RBC 2.31 L, Hgb 6.5 L, Hct 23.1 L, MCV 100.0 H, MCH 28.1, MCHC 28.1 L, RDW 20.6 H, RDW Differential 70.3 H, Plt Count 548 H, MPV 9.1, Immature Gran % (Auto) 0.700, Neut % (Auto) 79.5 H, Lymph % (Auto) 16.1 L, [place] % (Auto) 2.8, Eos % (Auto) 0.3, Baso % (Auto) 0.6, Absolute Neuts (auto) 12.9 H, Absolute Lymphs (auto) 2.61, Total Counted Not Reportable, Diff Path Review Reviewed, Platelet Estimate MOD INC, Polychromasia 1+, Hypochromasia 1+, Anisocytosis 2+, Macrocytosis 1+, Target Cells RARE, Ovalocytes RARE 06/01/18 15:59: Sodium 136, Potassium 3.6, Chloride 102, Carbon Dioxide 25.0, Anion Gap 9, BUN 31 H, Creatinine 1.18 H, Estim Creat Clear Calc 36.67, Est GFR (MDRD) Af Amer 58 L, Est GFR (MDRD) Non-Af 48 L, BUN/Creatinine Ratio 26.3 H, Glucose 141 H, Calcium 8.9, Troponin I 0.262 H 06/01/18 17:40: Vitamin B12 341 06/01/18 17:40: Iron 56, TIBC 592 H, Iron Saturation 9.5 L, Ferritin 11, Folate 17.80, TSH 4.12 H 06/01/18 17:40: Blood Type O NEGATIVE, Antibody Screen NEGATIVE, Crossmatch See Detail 06/01/18 17:40: Crossmatch See Detail 06/01/18 17:40: Direct Antiglob Test NEG w/POLYSPECIFIC 06/01/18 20:26: Troponin I 0.548 H 06/01/18 22:51: POC Glucose 154 H 06/01/18 23:20: Troponin I 0.838 H* 06/02/18 05:40: WBC 17.6 H, RBC 2.25 L, Hgb 6.4 L, Hct 22.1 L, MCV 98.2, MCH 28.4, MCHC 29.0 L, RDW 20.4 H, RDW Differential 69.0 H, Plt Count 486 H, MPV 9.1, Immature Gran % (Auto) 0.800, Neut % (Auto) 75.6 H, Lymph % (Auto) 9.8 L, [place] % (Auto) 12.9 H, Eos % (Auto) 0.4, Baso % (Auto) 0.5, Absolute Neuts (auto) 13.3 H, Absolute Lymphs (auto) 1.72, Total Counted Not Reportable, Differential Comment , Diff Path Review Reviewed, Platelet Estimate SLT INC, Polychromasia 1+, Hypochromasia 1+, Anisocytosis 2+ 06/02/18 05:40: Sodium 137, Potassium 4.1, Chloride 105, Carbon Dioxide 23.0, Anion Gap 9, BUN 34 H, Creatinine 1.09 H, Estim Creat Clear Calc 39.69, Est GFR (MDRD) Af Amer 63, Est GFR (MDRD) Non-Af 52 L, BUN/Creatinine Ratio 31.2 H, Glucose 139 H, Calcium 8.1 L, Free T4 1.00, Free T3 pg/dL 1.9 L 06/02/18 05:40: Total Bilirubin 0.50, Direct Bilirubin 0.37 H, AST 31, ALT 16, Alkaline Phosphatase 61, Total Protein 6.2 L, Albumin 3.0 L, Globulin 3.2 06/02/18 05:40: Lactate Dehydrogenase 255 H 06/02/18 06:49: POC Glucose 150 H 06/02/18 12:54: POC Glucose 146 H Current Medications Acetaminophen (Tylenol) 650 mg PO Q6H PRN PRN PRN Reason: Mild Pain (1-3)/Temp > 100.7 F Albuterol Sulfate (Ventolin Aerosols) 2.5 mg INHALATION Q4H PRN PRN PRN Reason: SOB &/OR WHEEZING Albuterol Sulfate (Ventolin Aerosols) 2.5 mg INHALATION Q6HWA.RT [facility] Last Admin: 06/02/18 12:20 Dose: 2.5 mg Budesonide (Pulmicort Aerosol) 0.5 mg INHALATION Q12H.RT [facility] Last Admin: 06/02/18 07:57 Dose: 0.5 mg Cholecalciferol (Vitamin D) 1,000 unit PO DAILY [facility] Last Admin: 06/02/18 12:46 Dose: 1,000 unit Dextrose (D50w Syringe) 0 gm IV X1 PRN; Protocol PRN Reason: Hypoglycemia Fenofibrate (Tricor) 145 mg PO DAILY [facility] Last Admin: 06/02/18 12:46 Dose: 145 mg Ferrous Sulfate (Ferrous Sulfate) 325 mg PO DAILY@1200 [facility] Last Admin: 06/02/18 12:47 Dose: 325 mg Furosemide (Lasix) 40 mg PO DAILY [facility] Last Admin: 06/02/18 12:46 Dose: 40 mg Glucagon () 1 mg IM .X1 PRN PRN Reason: Hypoglycemia Pantoprazole Sodium 40 mg/ (Sodium Chloride) 110 mls @ 330 mls/hr IV Q12 [facility] Last Admin: 06/02/18 08:49 Dose: 330 mls/hr Insulin Human Lispro (Humalog Kwikpen (Bkc)) 0 unit SQ TIDAC [facility]; Protocol Last Admin: 06/02/18 12:54 Dose: Not Given Levothyroxine Sodium (Synthroid) 50 mcg PO DAILY@0600 [facility] Last Admin: 06/02/18 06:15 Dose: Not Given Loratadine (Claritin) 10 mg PO DAILY [facility] Last Admin: 06/02/18 12:45 Dose: 10 mg Losartan Potassium (Cozaar) 100 mg PO DAILY [facility] Last Admin: 06/02/18 12:46 Dose: 100 mg Magnesium Hydroxide (Milk Of Magnesia) 30 ml PO DAILY PRN PRN Reason: Constipation Multivitamins/Minerals (Multivitamin With Minerals) 1 tablet PO DAILY@1200 [facility] Last Admin: 06/02/18 12:47 Dose: 1 tablet Multivitamins/Minerals (Healthy Eyes) 1 capsule PO DAILY [facility] Last Admin: 06/02/18 12:46 Dose: 1 capsule Ondansetron HCl (Zofran) 4 mg IV Q8H PRN PRN PRN Reason: NAUSEA Last Admin: 06/02/18 08:49 Dose: 4 mg Oxycodone HCl (Oxyir) 5 mg PO Q4H PRN PRN PRN Reason: MOD-SEVERE PAIN (4-10/10) Potassium Chloride (K-Dur) 40 meq PO DAILY@0800 [facility] Last Admin: 06/02/18 12:44 Dose: 40 meq Sodium Chloride () 5 - 15 ml IV UD PRN PRN Reason: SALINE FLUSH Last Admin: 06/02/18 01:00 Dose: 10 ml Medical Necessity - Tobacco Use Smoking Status: Former smoker Tobacco Use: Cigarettes Assessment/Plan All Active Problems (Last Reviewed 06/01/18 @ 20:04 by Rodger Jopperi, DO) Acute blood loss anemia (Acute) Upper GI bleed (Acute) Epistaxis (Acute) Elevated troponin (Acute) Dyspnea on exertion (Acute) 1. Acute blood loss anemia/hematemesis/history of cavernous hemangiomas -Has hemangiomas behind her eyes, and her brain, and in her liver. -Fecal occult stool has been negative -EGD was normal, with only mild gastritis can decrease PPI to Pepcid -She received 1 unit of PRBCs yesterday and her hemoglobin did not respond she did receive a second unit this afternoon and no recheck is pending -LFTs were added to her morning labs and her direct bili was slightly elevated so an LDH and haptoglobin were obtained as well as a direct Chaya, direct Chaya and heptoglobin are pending however the LDH is slightly elevated once again, though some of these values are elevated the degree of elevation does not indicate a hemolytic process -She does have a leukocytosis so she is afebrile, will obtain a UA -Unsure where she is bleeding from, she had a colonoscopy 6 years ago and it was normal and at that time they were knocking to repeat another one ever again because of how tortuous her colon anatomy was -May need to proceed with a bleeding scan and/or CT abdomen pelvis with contrast, can also consider liver ultrasound to evaluate this liver hemangioma -She did receive an iron infusion yesterday, can proceed with daily iron -Iron level was normal however ferritin was 11 and total iron binding capacity was high with an iron saturation that was low, indicating an iron deficiency anemia 2. 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 fib/elevated troponin/HTN/HLD -Candidate for anticoagulation given her hemangiomas -Worsening aortic valve and mitral valve stenosis -Appreciate cardiology input -Troponin elevation secondary to demand ischemia -Valves are bioprosthetic therefore unlikely to be contributing to any anemia -Continue with her losartan, Lasix and fenofibrate but hold aspirin 3. DM 2 -She is on metformin at home, will hold -Continue with sliding scale insulin and Accu-Cheks DVT: SCDs Code Visit Inpatient E&M: 61805 Subs Hosp L2
[2018-06-02 16:52] LABS: Bacteria 0 SEEN /hpf (None Seen); Mucous, Urine 0 SEEN /hpf (<or=2+); Red Blood Cells-Urine 0 SEEN /hpf (0-5); Squamous Epithelial Cells - UA 0 SEEN /hpf (5-10)
[2018-06-02 16:54] LABS: Color, Urine Yellow (Yellow); Glucose, Dipstick Normal (Normal); Ketone-Dipstick Negative (Negative); Leukocyte Esterase-Dipstick 25 /ul (Negative); Nitrite-Dipstick Negative (Negative); Occult Blood-Urine Negative /ul (Negative); Protein-Dipstick Negative (Negative); Specific Gravity, Urine 1.015 (1.002-1.030); Urine Bilirubin Dipstick Negative (Negative); Urine Clarity Clear (Clear); Urine Urobilinogen Normal (Normal)
[2018-06-02 17:03] LABS: White Blood Cells 0-5 SEEN /hpf (0-5)
[2018-06-02 18:11] LABS: Bedside Glucose 137 mg/dL (70-110)
[2018-06-02 19:06] LABS: Hematocrit 25.3 % (37-47); Hemoglobin 7.5 g/dl (12.0-15.0)
--- NOTE | 2018-06-02 20:09 | CPS ---
pt did not want the ventolin aerosol because it makes her shakey and nervous feeling.
[2018-06-02 22:31] LABS: Bedside Glucose 144 mg/dL (70-110)
[2018-06-03] VITALS (15 sets, daily range): BP systolic 91–125; BP diastolic 38–77; PULSE 60–72; RESP 16–22; TEMP 36.5–36.9; O2SAT 96–99
[2018-06-03] MEDS: Levothyroxine 50 MCG Tablet PO (05:38)
[2018-06-03 06:32] LABS: Absolute Lymphocyte Count 1.73 X10^3/ul (0.83-4.51); Absolute Neutrophil Count 15.6 X10^3/uL (2.0-7.7); Basophil# 0.08 X10^3/uL; Basophil% 0.4 % (0-1); Eosinophil# 0.25 X10^3/uL; Eosinophils% 1.2 % (0-5); Hematocrit 24.1 % (37-47); Lymphocyte # 1.73 X10^3/ul (4.0); Lymphocyte % 8.6 % (19-41); Mean Corpuscular Hgb 28.7 pg (27.0-32.0); Mean Corpuscular Volume 98.8 fL (81-99); Mean Platelet Vol. 9.3 fl (6.2-12.0); Monocyte% 11.9 % (0-10); Neutrophil # 15.58 X10^3/uL (2.7-7.7); Neutrophil % 77.3 % (47-70); Platelet Count 422 K/mm3 (150-450); RBC Distribution Width CV 20.9 % (11.6-14.6); RBC Distribution Width SD 69.7 fl (35.1-43.9); Red Blood Count 2.44 M/mm3 (4.2-5.4); White Blood Count 20.2 K/mm3 (4.4-11.0)
[2018-06-03 06:36] LABS: Differential Indicated SCAN CRITERIA MET; POSITIVE COUNT NO; POSITIVE DIFFERENTIAL YES; POSITIVE MORPHOLOGY YES
[2018-06-03 06:37] LABS: BUN 27 mg/dL (7-18); Creatinine, Serum 1.08 mg/dL (0.55-1.02); Estimated Creatinine Clearance 40.06 ml/min; Glucose 112 mg/dL (74-106)
[2018-06-03 06:38] LABS: Anion Gap 8 (5-15); Calcium,Total 8.4 mg/dL (8.5-10.1); Chloride 106 mmol/L (98-107); EST Glomerular Filtration Rate 53 mL/min (>60); Est Glom Filt Rate - Afr Amer 64 mL/min (>60); Potassium 4.1 mmol/L (3.5-5.1); Sodium Level 138 mmol/L (136-145)
--- NOTE | 2018-06-03 06:48 | PN.CARD_ITS ---
Subjectve: Patient seen and evaluated. Says that she is doing better. She however still looks pale. Objective: Vital Signs Temp Pulse Resp BP Pulse Ox 97.7 F L 60 18 111/55 L 99 06/03/18 03:59 06/03/18 03:59 06/03/18 03:59 06/03/18 03:59 06/03/18 03:59 Oxygen Flow Rate (L/min) 1 Oxygen Delivery Method Room Air Weight: 215 lb Body Mass Index (BMI) 36.8 Intake and Output for Last 24 Hours 06/01/18 06/02/18 06/03/18 23:59 23:59 23:59 Intake Total 0 / 0 3082 / 3082 50 / 50 Output Total 375 / 375 Balance 0 / 0 2707 / 2707 50 / 50 General: Awake, Alert, Oriented x 3 HEENT: PERRL, EOMI, Sclera Non Icteric Neck: Supple, Good ROM, No Lymph Node Enlargement Lungs: Clear to auscultation Cardiovascular: Regular Rhythm, Normal S1, Normal S2, No Rubs, No Gallops Murmur Murmur: Grade 3/6, Early Systolic, LLSB Vascular: No Carotid Bruits, Normal Femoral Pulses, Normal Radial Pulses, Normal Dorsalis Pedal Pulse, Normal Posterior Tibial Pulses Abdomen: Bowel Sounds Present, Soft, Non Tender, No HSM, No Organomegaly Extremities: No Cyanosis, No Clubbing, No edema Musculoskeletal: No Erythema Skin: No Rashes Lymphatic: No Lymph Node Enlargement Neurological: No Focal Motor or Sensory Deficit 06/02/18 05:40: Total Bilirubin 0.50, Direct Bilirubin 0.37 H 06/02/18 16:40: Urine Color Yellow, Urine Clarity Clear, Urine pH 6.0, Ur Specific [place] 1.015, Urine Protein Negative, Urine Glucose (UA) Normal, Urine Ketones Negative, Urine Occult Blood Negative, Urine Nitrite Negative, Urine Bilirubin Negative, Urine Urobilinogen Normal, Ur Leukocyte Esterase 25 H, Urine RBC 0 SEEN, Urine WBC 0-5 SEEN 06/02/18 18:35: Hgb 7.5 L, Hct 25.3 L 06/03/18 05:55: WBC 20.2 H, RBC 2.44 L, Hgb 7.0 L, Hct 24.1 L, MCV 98.8, MCH 28.7, MCHC 29.0 L, RDW 20.9 H, RDW Differential 69.7 H, Plt Count 422, MPV 9.3, Immature Gran % (Auto) 0.600, Neut % (Auto) 77.3 H, Lymph % (Auto) 8.6 L, [place] % (Auto) 11.9 H, Eos % (Auto) 1.2, Baso % (Auto) 0.4, Absolute Neuts (auto) 15.6 H 06/03/18 05:55: Sodium 138, Potassium 4.1, Chloride 106, Carbon Dioxide 24.0, Anion Gap 8, BUN 27 H, Creatinine 1.08 H, Est GFR (MDRD) Af Amer 64, Est GFR (MDRD) Non-Af 53 L, BUN/Creatinine Ratio 25.0 H, Glucose 112 H, Calcium 8.4 L Rhythm: EKG: ECHO: Stress Test: Cardiac Cath: PCI: CT Surgery: Holter monitor: EPS: PPM: CXR: Chest CT Scan: Medical Necessity - Tobacco Use Smoking Status: Former smoker Tobacco Use: Cigarettes Assessment/Plan 1. Shortness of breath. * Etiology of her shortness of breath is likely secondary to the severe anemia. A year ago she had a hemoglobin of over 12. It appears that she has had a slow bleed. * She is not on anticoagulation secondary to the cavernous hemangioma. * At this time I think that she can go ahead and have an EGD. She had a recent echocardiogram which demonstrated normally functioning prosthetic mitral and aortic valve. I do not think there is a reason to repeat this at this time. * 2. Atrial fibrillation: * She does have a history of chronic atrial fibrillation but she cannot be anticoagulated due to her cavernous hemangioma. * Ventricular response rate is controlled * 3. Status post pacemaker placement * She does have a ventricular pacemaker which continues to be evaluated through our office. * Will continue current medical therapy. * 4. Valvular heart disease * She does have a history of a prosthetic aortic and mitral valve. * Her prosthetic aortic valve demonstrated increased gradients. I suspect this was on the basis of her anemia. I may recommend repeating her echocardiogram after her hemoglobin has been corrected.. * No changes were made with respect to the above. * * 5. Abnormal troponin * This is likely secondary to demand ischemia. After her hemoglobin has stabilized and there is an etiology for the anemia she may need to undergo further cardiac evaluation. Of note was the fact that her last stress test however did not demonstrate any evidence of ischemia. * * 6. Anemia * The etiology of the above is not clear at this time. I doubt it is secondary to involve induced hemolysis. * Would strongly consider a colonoscopy. * * Thank you for allowing me to participate in the care of your patient. Please don't hesitate to call if any issues arise
[2018-06-03 07:10] LABS: Bedside Glucose 116 mg/dL (70-110)
[2018-06-03 07:20] LABS: Absolute Nucleated RBC Count 0.08 10^3/uL (0-5); Anisocytosis 2+; Differential Comment SCAN; Hypochromasia 1+; Microcytosis 1+; NRBC Flagged by Analyzer 0.4 % (0-5); Polychromasia 1+
[2018-06-03] MEDS: Budesonide Respules 0.5 MG/2 ML AMPUL.NEB. INHALATION (07:21)
--- NOTE | 2018-06-03 07:36 | CT_ITS ---
STUDY: CT ABDOMEN AND PELVIS WITH CONTRAST REASON FOR EXAM: Female, 72 years old. History of anemia. Acute blood loss. History of prior aortic and mitral valve replacement. RADIATION DOSAGE (If Supplied By Facility): CTDIvol = ( 27.45 ) mGy, DLP = ( 1446.65 ) mGycm TECHNIQUE: Transaxial images were obtained from the dome of the diaphragm to the symphysis pubis with oral contrast. Isovue 300 100 IV/Oral was administered. Sagittal and coronal images were reconstructed. Individualized dose optimization techniques were used for this CT. COMPARISON: None. FINDINGS: The visualized lung bases are unremarkable. Coronary artery calcification. Pacemaker is seen. Mitral valve prosthesis. There is decreased attenuation of the liver consistent with steatosis. Mild hepatomegaly. The gallbladder is not visualized and most likely due to prior cholecystectomy. Normal spleen. Normal pancreas. Normal bilateral adrenal glands. Normal right kidney. Normal left kidney. Mild rotation of the kidneys. There is a small hiatal hernia. Normal small intestine. There are multiple colonic diverticula consistent with diverticulosis. Moderate amount of fecal material is seen in the colon. The appendix is visualized and appears normal. There is diffuse atherosclerotic calcification of the abdominal aorta and its major visceral branches, without a demonstrated aneurysm. Normal inferior vena cava. Normal retroperitoneum. Normal urinary bladder. There is a left-sided inguinal hernia containing adipose tissue. There are diffuse degenerative changes of the visualized lumbar spine. CT/Abdomen/Pelvis WITH Contrast IMPRESSION: Mild hepatomegaly and fatty infiltration of the liver. Sigmoid diverticulosis. Electronically Signed: Nate Walker, at 11:26 EST , Service support ,
--- NOTE | 2018-06-03 08:54 | PCM.PN.SRG ---
Patient Problems: Active and Suspected Problems (Last Reviewed 06/01/18 @ 20:04 by Rodger Nielson DO) Acute blood loss anemia (Acute) Upper GI bleed (Acute) Epistaxis (Acute) Elevated troponin (Acute) Subjective: Pt WBC 20, Hb 7, denies abd pain, no BM since , last colonoscopy was incomplete due to redundant sigmoid colon and BE was in 2008, scheduled for CT a/p this AM - Physical Exam General: Alert, Oriented x3, Cooperative, No apparent distress HEENT: Atraumatic Neck: Supple Lungs: Normal air movement Abdomen: Soft, Non Tender - no PS, Non-Distended Extremities: No clubbing, No cyanosis, No edema Vital Signs Temp Pulse Resp BP Pulse Ox 97.7 F L 62 18 111/55 L 99 06/03/18 03:59 06/03/18 07:23 06/03/18 07:23 06/03/18 03:59 06/03/18 03:59 Oxygen Flow Rate (L/min) 1 Oxygen Delivery Method Room Air Weight: 215 lb Body Mass Index (BMI) 36.8 Intake and Output for Last 24 Hours 06/01/18 06/02/18 06/03/18 23:59 23:59 23:59 Intake Total 0 / 0 3082 / 3082 50 / 50 Output Total 375 / 375 Balance 0 / 0 2707 / 2707 50 / 50 Microbiology Past 72 Hours 06/01/18 16:10 Stool Occult Blood (RAMSES) - Final Stool Laboratory Tests Past 24 Hrs 06/01/18 06/01/18 06/01/18 15:59 17:40 17:40 WBC RBC Hgb Hct MCV MCH MCHC RDW RDW Differential Plt Count MPV Immature Gran % (Auto) Neut % (Auto) Lymph % (Auto) [place] % (Auto) Eos % (Auto) Baso % (Auto) Absolute Neuts (auto) Absolute Lymphs (auto) Total Counted Nucleated RBC % Differential Comment Diff Path Review Reviewed Polychromasia Hypochromasia Anisocytosis Microcytosis Absolute Retic Haptoglobin Sodium Potassium Chloride Carbon Dioxide Anion Gap BUN Creatinine Estim Creat Clear Calc Est GFR (MDRD) Af Amer Est GFR (MDRD) Non-Af BUN/Creatinine Ratio Glucose Calcium Lactate Dehydrogenase Urine Color Urine Clarity Urine pH Ur Specific [place] Urine Protein Urine Glucose (UA) Urine Ketones Urine Occult Blood Urine Nitrite Urine Bilirubin Urine Urobilinogen Ur Leukocyte Esterase Urine RBC Urine WBC Ur Squamous Epith Cells Urine Bacteria Urine Mucus Direct Antiglob Test Crossmatch See Detail See Detail 06/01/18 06/02/18 06/02/18 17:40 05:40 05:40 WBC RBC Hgb Hct MCV MCH MCHC RDW RDW Differential Plt Count MPV Immature Gran % (Auto) Neut % (Auto) Lymph % (Auto) [place] % (Auto) Eos % (Auto) Baso % (Auto) Absolute Neuts (auto) Absolute Lymphs (auto) Total Counted Nucleated RBC % Differential Comment Diff Path Review Reviewed Polychromasia Hypochromasia Anisocytosis Microcytosis Absolute Retic Haptoglobin Sodium Potassium Chloride Carbon Dioxide Anion Gap BUN Creatinine Estim Creat Clear Calc Est GFR (MDRD) Af Amer Est GFR (MDRD) Non-Af BUN/Creatinine Ratio Glucose Calcium Lactate Dehydrogenase 255 H Urine Color Urine Clarity Urine pH Ur Specific [place] Urine Protein Urine Glucose (UA) Urine Ketones Urine Occult Blood Urine Nitrite Urine Bilirubin Urine Urobilinogen Ur Leukocyte Esterase Urine RBC Urine WBC Ur Squamous Epith Cells Urine Bacteria Urine Mucus Direct Antiglob Test NEG w/POLYSPECIFIC Crossmatch 06/02/18 06/02/18 06/02/18 16:40 18:35 18:35 WBC RBC Hgb 7.5 L Hct 25.3 L MCV MCH MCHC RDW RDW Differential Plt Count MPV Immature Gran % (Auto) Neut % (Auto) Lymph % (Auto) [place] % (Auto) Eos % (Auto) Baso % (Auto) Absolute Neuts (auto) Absolute Lymphs (auto) Total Counted Nucleated RBC % Differential Comment Diff Path Review Polychromasia Hypochromasia Anisocytosis Microcytosis Absolute Retic Haptoglobin Pending Sodium Potassium Chloride Carbon Dioxide Anion Gap BUN Creatinine Estim Creat Clear Calc Est GFR (MDRD) Af Amer Est GFR (MDRD) Non-Af BUN/Creatinine Ratio Glucose Calcium Lactate Dehydrogenase Urine Color Yellow Urine Clarity Clear Urine pH 6.0 Ur Specific [place] 1.015 Urine Protein Negative Urine Glucose (UA) Normal Urine Ketones Negative Urine Occult Blood Negative Urine Nitrite Negative Urine Bilirubin Negative Urine Urobilinogen Normal Ur Leukocyte Esterase 25 H Urine RBC 0 SEEN Urine WBC 0-5 SEEN Ur Squamous Epith Cells 0 SEEN Urine Bacteria 0 SEEN Urine Mucus 0 SEEN Direct Antiglob Test Crossmatch 06/03/18 06/03/18 05:55 05:55 WBC 20.2 H RBC 2.44 L Hgb 7.0 L Hct 24.1 L MCV 98.8 MCH 28.7 MCHC 29.0 L RDW 20.9 H RDW Differential 69.7 H Plt Count 422 MPV 9.3 Immature Gran % (Auto) 0.600 Neut % (Auto) 77.3 H Lymph % (Auto) 8.[address] [place] % (Auto) 11.9 H Eos % (Auto) 1.2 Baso % (Auto) 0.4 Absolute Neuts (auto) 15.6 H Absolute Lymphs (auto) 1.73 Total Counted Not Reportable Nucleated RBC % 0.4 Differential Comment SCAN Diff Path Review May foll Polychromasia 1+ Hypochromasia 1+ Anisocytosis 2+ Microcytosis 1+ Absolute Retic 0.08 Haptoglobin Sodium 138 Potassium 4.1 Chloride 106 Carbon Dioxide 24.0 Anion Gap 8 BUN 27 H Creatinine 1.08 H Estim Creat Clear Calc 40.06 Est GFR (MDRD) Af Amer 64 Est GFR (MDRD) Non-Af 53 L BUN/Creatinine Ratio 25.0 H Glucose 112 H Calcium 8.4 L Lactate Dehydrogenase Urine Color Urine Clarity Urine pH Ur Specific [place] Urine Protein Urine Glucose (UA) Urine Ketones Urine Occult Blood Urine Nitrite Urine Bilirubin Urine Urobilinogen Ur Leukocyte Esterase Urine RBC Urine WBC Ur Squamous Epith Cells Urine Bacteria Urine Mucus Direct Antiglob Test Crossmatch POC Glucose 06/03/18 06/02/18 06/02/18 06:48 22:22 16:45 POC Glucose 116 H 144 H 137 H 06/02/18 12:54 POC Glucose 146 H Medical Necessity - Tobacco Use Smoking Status: Former smoker Tobacco Use: Cigarettes Assessment/Plan All Active Problems (Last Reviewed 06/01/18 @ 20:04 by Rodger Nielson DO) Acute blood loss anemia (Acute) Upper GI bleed (Acute) Epistaxis (Acute) Elevated troponin (Acute) Dyspnea on exertion (Acute) 72-year-old female with anemia, elevated troponins-demand ischemia, severe aortic stenosis s/p aortic/mitral valve replacement 2009, s/p pacer 1. Anemia- Hb 7.0 after 2 units PRBC, pt has CT a/p scheduled this AM, will start prep after CT complete- plan for colonoscopy 13:00 tomorrow. I have offered the patient colonoscopy for evaluation. Unsure if we will likely find something as patient's fecal occult was negative and she does denied any blood in her stool. I have explained the risks/benefits of the procedure and described the procedure. I have discussed the risks with the patient, including but not limited to: infection, bleeding, perforation of the GI tract requiring emergency surgery, inability to complete the procedure-requiring BE, injury to any internal organs, complications of anesthesia, etc. - the patient understands and agrees to proceed. I have answered all the patient's questions to the patient's satisfaction and the patient has no further questions. Gloria Wallace M.D. Pager: [phone] [facility] [address] [place] [address] [address] [place] [address] Office: [phone]
--- NOTE | 2018-06-03 08:57 | PN.SURG_ITS ---
Patient Problems: Active and Suspected Problems (Last Reviewed 06/01/18 @ 20:04 by Rodger Nielson DO) Acute blood loss anemia (Acute) Upper GI bleed (Acute) Epistaxis (Acute) Elevated troponin (Acute) Subjective: Pt WBC 20, Hb 7, denies abd pain, no BM since , last colonoscopy was incomplete due to redundant sigmoid colon and BE was in 2008, scheduled for CT a/p this AM - Physical Exam General: Alert, Oriented x3, Cooperative, No apparent distress HEENT: Atraumatic Neck: Supple Lungs: Normal air movement Abdomen: Soft, Non Tender - no PS, Non-Distended Extremities: No clubbing, No cyanosis, No edema Vital Signs Temp Pulse Resp BP Pulse Ox 97.7 F L 62 18 111/55 L 99 06/03/18 03:59 06/03/18 07:23 06/03/18 07:23 06/03/18 03:59 06/03/18 03:59 Oxygen Flow Rate (L/min) 1 Oxygen Delivery Method Room Air Weight: 215 lb Body Mass Index (BMI) 36.8 Intake and Output for Last 24 Hours 06/01/18 06/02/18 06/03/18 23:59 23:59 23:59 Intake Total 0 / 0 3082 / 3082 50 / 50 Output Total 375 / 375 Balance 0 / 0 2707 / 2707 50 / 50 Microbiology Past 72 Hours 06/01/18 16:10 Stool Occult Blood (RAMSES) - Final Stool Laboratory Tests Past 24 Hrs 06/01/18 06/01/18 06/01/18 15:59 17:40 17:40 WBC RBC Hgb Hct MCV MCH MCHC RDW RDW Differential Plt Count MPV Immature Gran % (Auto) Neut % (Auto) Lymph % (Auto) [place] % (Auto) Eos % (Auto) Baso % (Auto) Absolute Neuts (auto) Absolute Lymphs (auto) Total Counted Nucleated RBC % Differential Comment Diff Path Review Reviewed Polychromasia Hypochromasia Anisocytosis Microcytosis Absolute Retic Haptoglobin Sodium Potassium Chloride Carbon Dioxide Anion Gap BUN Creatinine Estim Creat Clear Calc Est GFR (MDRD) Af Amer Est GFR (MDRD) Non-Af BUN/Creatinine Ratio Glucose Calcium Lactate Dehydrogenase Urine Color Urine Clarity Urine pH Ur Specific [place] Urine Protein Urine Glucose (UA) Urine Ketones Urine Occult Blood Urine Nitrite Urine Bilirubin Urine Urobilinogen Ur Leukocyte Esterase Urine RBC Urine WBC Ur Squamous Epith Cells Urine Bacteria Urine Mucus Direct Antiglob Test Crossmatch See Detail See Detail 06/01/18 06/02/18 06/02/18 17:40 05:40 05:40 WBC RBC Hgb Hct MCV MCH MCHC RDW RDW Differential Plt Count MPV Immature Gran % (Auto) Neut % (Auto) Lymph % (Auto) [place] % (Auto) Eos % (Auto) Baso % (Auto) Absolute Neuts (auto) Absolute Lymphs (auto) Total Counted Nucleated RBC % Differential Comment Diff Path Review Reviewed Polychromasia Hypochromasia Anisocytosis Microcytosis Absolute Retic Haptoglobin Sodium Potassium Chloride Carbon Dioxide Anion Gap BUN Creatinine Estim Creat Clear Calc Est GFR (MDRD) Af Amer Est GFR (MDRD) Non-Af BUN/Creatinine Ratio Glucose Calcium Lactate Dehydrogenase 255 H Urine Color Urine Clarity Urine pH Ur Specific [place] Urine Protein Urine Glucose (UA) Urine Ketones Urine Occult Blood Urine Nitrite Urine Bilirubin Urine Urobilinogen Ur Leukocyte Esterase Urine RBC Urine WBC Ur Squamous Epith Cells Urine Bacteria Urine Mucus Direct Antiglob Test NEG w/POLYSPECIFIC Crossmatch 06/02/18 06/02/18 06/02/18 16:40 18:35 18:35 WBC RBC Hgb 7.5 L Hct 25.3 L MCV MCH MCHC RDW RDW Differential Plt Count MPV Immature Gran % (Auto) Neut % (Auto) Lymph % (Auto) [place] % (Auto) Eos % (Auto) Baso % (Auto) Absolute Neuts (auto) Absolute Lymphs (auto) Total Counted Nucleated RBC % Differential Comment Diff Path Review Polychromasia Hypochromasia Anisocytosis Microcytosis Absolute Retic Haptoglobin Pending Sodium Potassium Chloride Carbon Dioxide Anion Gap BUN Creatinine Estim Creat Clear Calc Est GFR (MDRD) Af Amer Est GFR (MDRD) Non-Af BUN/Creatinine Ratio Glucose Calcium Lactate Dehydrogenase Urine Color Yellow Urine Clarity Clear Urine pH 6.0 Ur Specific [place] 1.015 Urine Protein Negative Urine Glucose (UA) Normal Urine Ketones Negative Urine Occult Blood Negative Urine Nitrite Negative Urine Bilirubin Negative Urine Urobilinogen Normal Ur Leukocyte Esterase 25 H Urine RBC 0 SEEN Urine WBC 0-5 SEEN Ur Squamous Epith Cells 0 SEEN Urine Bacteria 0 SEEN Urine Mucus 0 SEEN Direct Antiglob Test Crossmatch 06/03/18 06/03/18 05:55 05:55 WBC 20.2 H RBC 2.44 L Hgb 7.0 L Hct 24.1 L MCV 98.8 MCH 28.7 MCHC 29.0 L RDW 20.9 H RDW Differential 69.7 H Plt Count 422 MPV 9.3 Immature Gran % (Auto) 0.600 Neut % (Auto) 77.3 H Lymph % (Auto) 8.6 L [place] % (Auto) 11.9 H Eos % (Auto) 1.2 Baso % (Auto) 0.4 Absolute Neuts (auto) 15.6 H Absolute Lymphs (auto) 1.73 Total Counted Not Reportable Nucleated RBC % 0.4 Differential Comment SCAN Diff Path Review May foll Polychromasia 1+ Hypochromasia 1+ Anisocytosis 2+ Microcytosis 1+ Absolute Retic 0.08 Haptoglobin Sodium 138 Potassium 4.1 Chloride 106 Carbon Dioxide 24.0 Anion Gap 8 BUN 27 H Creatinine 1.08 H Estim Creat Clear Calc 40.06 Est GFR (MDRD) Af Amer 64 Est GFR (MDRD) Non-Af 53 L BUN/Creatinine Ratio 25.0 H Glucose 112 H Calcium 8.4 L Lactate Dehydrogenase Urine Color Urine Clarity Urine pH Ur Specific [place] Urine Protein Urine Glucose (UA) Urine Ketones Urine Occult Blood Urine Nitrite Urine Bilirubin Urine Urobilinogen Ur Leukocyte Esterase Urine RBC Urine WBC Ur Squamous Epith Cells Urine Bacteria Urine Mucus Direct Antiglob Test Crossmatch POC Glucose 06/03/18 06/02/18 06/02/18 06:48 22:22 16:45 POC Glucose 116 H 144 H 137 H 06/02/18 12:54 POC Glucose 146 H Medical Necessity - Tobacco Use Smoking Status: Former smoker Tobacco Use: Cigarettes Assessment/Plan All Active Problems (Last Reviewed 06/01/18 @ 20:04 by Rodger Nielson DO) Acute blood loss anemia (Acute) Upper GI bleed (Acute) Epistaxis (Acute) Elevated troponin (Acute) Dyspnea on exertion (Acute) 72-year-old female with anemia, elevated troponins-demand ischemia, severe aortic stenosis s/p aortic/mitral valve replacement 2009, s/p pacer 1. Anemia- Hb 7.0 after 2 units PRBC, pt has CT a/p scheduled this AM, will start prep after CT complete- plan for colonoscopy 13:00 tomorrow. I have offered the patient colonoscopy for evaluation. Unsure if we will likely find something as patient's fecal occult was negative and she does denied any blood in her stool. I have explained the risks/benefits of the procedure and described the procedure. I have discussed the risks with the patient, including but not limited to: infection, bleeding, perforation of the GI tract requiring emergency surgery, inability to complete the procedure-requiring BE, injury to any internal organs, complications of anesthesia, etc. - the patient understands and agrees to proceed. I have answered all the patient's questions to the patient's satisfaction and the patient has no further questions. Gloria Wallace M.D. Pager: [phone] [facility] [address] [place] [address] [address] [place] [address] Office: [phone]
[2018-06-03] MEDS: Multivitamin (Healthy Eyes) Capsule 1 CAP PO (11:33)
[2018-06-03] MEDS: Loratadine 10 MG Tablet PO (11:33)
[2018-06-03] MEDS: Fenofibrate 145 MG Tablet PO (11:35)
[2018-06-03] MEDS: Famotidine 20 MG Tablet PO (11:35)
[2018-06-03] MEDS: Electrolyte Solution/Peg's 4000 ML PO (11:36)
[2018-06-03] MEDS: Ferrous Sulfate 325 MG Tablet PO (11:37)
[2018-06-03] MEDS: Multivitamins,Ther W-Minerals Tablet 1 TABLET PO (11:37)
[2018-06-03 11:55] LABS: Bedside Glucose 104 mg/dL (70-110)
--- NOTE | 2018-06-03 13:43 | PCM.PN.HOSP ---
Patient Problems: Active and Suspected Problems (Last Reviewed 06/01/18 @ 20:04 by Rodger Nielson DO) Acute blood loss anemia (Acute) Upper GI bleed (Acute) Epistaxis (Acute) Elevated troponin (Acute) Subjective: Feels better today and looks a bit better today though still pale Vitals/I&O's: Vital Signs Temp Pulse Resp BP Pulse Ox 98.1 F 61 16 101/77 98 06/03/18 12:45 06/03/18 12:45 06/03/18 12:45 06/03/18 12:45 06/03/18 12:45 Oxygen Flow Rate (L/min) 1 Oxygen Delivery Method Room Air Weight: 215 lb Body Mass Index (BMI) 36.8 Intake and Output for Last 24 Hours 06/01/18 06/02/18 06/03/18 23:59 23:59 23:59 Intake Total 0 / 0 3082 / 3082 50 / 50 Output Total 375 / 375 200 / 200 Balance 0 / 0 2707 / 2707 -150 / -150 General: Alert, Oriented x3, Cooperative, No apparent distress HEENT: Atraumatic, PERRLA, EOMI, Normocephalic, - - Pale conjunctiva Oral: Dry Mucosa Neck: Supple, No JVD, Trachea Midline Lungs: Clear to auscultation, Normal air movement, No rhonchi, No wheeze, No rales Cardiovascular: Regular rate, Regular Rhythm, Normal S1, Normal S2, Murmur - 3 out of 6 SONIA which gets softer with inspiration and louder with expiration Abdomen: Soft, Non Tender, Non-Distended, No Hepato-splenomegaly Extremities: No edema, Capillary Refill Less than 3 Seconds Skin: No rashes, No breakdown Neurological: Neuro grossly intact, Sensory exam intact to light touch and pain Psych/Mental Status: Normal Affect, Appropriate Microbiology Past 72 Hours 06/01/18 16:10 Stool Stool Occult Blood (RAMSES) - Final Laboratory Results 06/01/18 15:59: Diff Path Review Reviewed 06/01/18 17:40: Direct Antiglob Test NEG w/POLYSPECIFIC 06/01/18 17:40: Crossmatch See Detail 06/02/18 05:40: Diff Path Review Reviewed 06/02/18 05:40: Lactate Dehydrogenase 255 H 06/02/18 16:40: Urine Color Yellow, Urine Clarity Clear, Urine pH 6.0, Ur Specific [place] 1.015, Urine Protein Negative, Urine Glucose (UA) Normal, Urine Ketones Negative, Urine Occult Blood Negative, Urine Nitrite Negative, Urine Bilirubin Negative, Urine Urobilinogen Normal, Ur Leukocyte Esterase 25 H, Urine RBC 0 SEEN, Urine WBC 0-5 SEEN, Ur Squamous Epith Cells 0 SEEN, Urine Bacteria 0 SEEN, Urine Mucus 0 SEEN 06/02/18 16:45: POC Glucose 137 H 06/02/18 18:35: Hgb 7.5 L, Hct 25.3 L 06/02/18 18:35: Haptoglobin Pending 06/02/18 22:22: POC Glucose 144 H 06/03/18 05:55: WBC 20.2 H, RBC 2.44 L, Hgb 7.0 L, Hct 24.1 L, MCV 98.8, MCH 28.7, MCHC 29.0 L, RDW 20.9 H, RDW Differential 69.7 H, Plt Count 422, MPV 9.3, Immature Gran % (Auto) 0.600, Neut % (Auto) 77.3 H, Lymph % (Auto) 8.6 L, [place] % (Auto) 11.9 H, Eos % (Auto) 1.2, Baso % (Auto) 0.4, Absolute Neuts (auto) 15.6 H, Absolute Lymphs (auto) 1.73, Total Counted Not Reportable, Nucleated RBC % 0.4, Differential Comment SCAN, Diff Path Review May foll, Polychromasia 1+, Hypochromasia 1+, Anisocytosis 2+, Microcytosis 1+, Absolute Retic 0.08 06/03/18 05:55: Sodium 138, Potassium 4.1, Chloride 106, Carbon Dioxide 24.0, Anion Gap 8, BUN 27 H, Creatinine 1.08 H, Estim Creat Clear Calc 40.06, Est GFR (MDRD) Af Amer 64, Est GFR (MDRD) Non-Af 53 L, BUN/Creatinine Ratio 25.0 H, Glucose 112 H, Calcium 8.4 L 06/03/18 06:48: POC Glucose 116 H 06/03/18 11:44: POC Glucose 104 Current Medications Acetaminophen (Tylenol) 650 mg PO Q6H PRN PRN PRN Reason: Mild Pain (1-3)/Temp > 100.7 F Albuterol Sulfate (Ventolin Aerosols) 2.5 mg INHALATION Q4H PRN PRN PRN Reason: SOB &/OR WHEEZING Albuterol Sulfate (Ventolin Aerosols) 2.5 mg INHALATION Q6HWA.RT [facility] Last Admin: 06/03/18 07:21 Dose: Not Given Budesonide (Pulmicort Aerosol) 0.5 mg INHALATION Q12H.RT [facility] Last Admin: 06/03/18 07:21 Dose: 0.5 mg Cholecalciferol (Vitamin D) 1,000 unit PO DAILY [facility] Last Admin: 06/03/18 11:33 Dose: 1,000 unit Dextrose (D50w Syringe) 0 gm IV X1 PRN; Protocol PRN Reason: Hypoglycemia Famotidine (Pepcid) 20 mg PO DAILY [facility] Last Admin: 06/03/18 11:35 Dose: 20 mg Fenofibrate (Tricor) 145 mg PO DAILY [facility] Last Admin: 06/03/18 11:35 Dose: 145 mg Ferrous Sulfate (Ferrous Sulfate) 325 mg PO DAILY@1200 [facility] Last Admin: 06/03/18 11:37 Dose: 325 mg Furosemide (Lasix) 40 mg PO DAILY [facility] Last Admin: 06/03/18 11:35 Dose: Not Given Glucagon () 1 mg IM .X1 PRN PRN Reason: Hypoglycemia Insulin Human Lispro (Humalog Kwikpen (Bkc)) 0 unit SQ TIDAC [facility]; Protocol Last Admin: 06/03/18 09:37 Dose: Not Given Levothyroxine Sodium (Synthroid) 50 mcg PO DAILY@0600 [facility] Last Admin: 06/03/18 05:38 Dose: 50 mcg Loratadine (Claritin) 10 mg PO DAILY [facility] Last Admin: 06/03/18 11:33 Dose: 10 mg Losartan Potassium (Cozaar) 100 mg PO DAILY [facility] Last Admin: 06/03/18 11:35 Dose: Not Given Magnesium Hydroxide (Milk Of Magnesia) 30 ml PO DAILY PRN PRN Reason: Constipation Multivitamins/Minerals (Multivitamin With Minerals) 1 tablet PO DAILY@1200 [facility] Last Admin: 06/03/18 11:37 Dose: 1 tablet Multivitamins/Minerals (Healthy Eyes) 1 capsule PO DAILY [facility] Last Admin: 06/03/18 11:33 Dose: 1 capsule Ondansetron HCl (Zofran) 4 mg IV Q8H PRN PRN PRN Reason: NAUSEA Last Admin: 06/02/18 08:49 Dose: 4 mg Oxycodone HCl (Oxyir) 5 mg PO Q4H PRN PRN PRN Reason: MOD-SEVERE PAIN (4-10/10) Potassium Chloride (K-Dur) 40 meq PO DAILY@0800 [facility] Last Admin: 06/03/18 11:33 Dose: 40 meq Sodium Chloride () 5 - 15 ml IV UD PRN PRN Reason: SALINE FLUSH Last Admin: 06/02/18 01:00 Dose: 10 ml Medical Necessity - Tobacco Use Smoking Status: Former smoker Tobacco Use: Cigarettes Assessment/Plan All Active Problems (Last Reviewed 06/01/18 @ 20:04 by Rodger Nielson DO) Acute blood loss anemia (Acute) Upper GI bleed (Acute) Epistaxis (Acute) Elevated troponin (Acute) Dyspnea on exertion (Acute) 1. Acute blood loss anemia/hematemesis/history of cavernous hemangiomas -Has hemangiomas behind her eyes, and her brain, and in her liver. -Fecal occult stool has been negative -EGD was normal, with only mild gastritis can decrease PPI to Pepcid, negative for H. pylori -Hemoglobin was 7.5 yesterday after her second unit however this morning she was 7 therefore another unit was ordered with a recheck -Haptoglobin is pending, and will add retake count in the morning just to make sure that her bone marrow is responding appropriately to her anemia -She does have a leukocytosis but she is afebrile, UA was unremarkable for infection or hematuria -Unsure where she is bleeding from, she had a colonoscopy 10 years ago and it was normal and at that time they were not going to repeat another one ever again because of how tortuous her colon anatomy was, however since there is no identifiable source we will repeat tomorrow -CT abdomen pelvis with p.o. and IV contrast was unremarkable -Continue with daily iron, continue with Pepcid -Iron level was normal however ferritin was 11 and total iron binding capacity was high with an iron saturation that was low, indicating an iron deficiency anemia 2. 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 fib/elevated troponin/HTN/HLD -She is not a candidate for anticoagulation given her hemangiomas -Worsening aortic valve and mitral valve stenosis possibly due to her anemia -Appreciate cardiology input -Troponin elevation secondary to demand ischemia -Valves are bioprosthetic therefore unlikely to be contributing to any anemia -Continue with her losartan, Lasix and fenofibrate but hold aspirin 3. DM 2 -She is on metformin at home, will hold -Continue with sliding scale insulin and Accu-Cheks DVT: SCDs Code Visit Inpatient E&M: 22157 Subs Hosp L2
[2018-06-03 13:44] LABS: Pathologist Review Reviewed
--- NOTE | 2018-06-03 13:49 | PN_ITS ---
Patient Problems: Active and Suspected Problems (Last Reviewed 06/01/18 @ 20:04 by Rodger Nielson DO) Acute blood loss anemia (Acute) Upper GI bleed (Acute) Epistaxis (Acute) Elevated troponin (Acute) Subjective: Feels better today and looks a bit better today though still pale Vitals/I&O's: Vital Signs Temp Pulse Resp BP Pulse Ox 98.1 F 61 16 101/77 98 06/03/18 12:45 06/03/18 12:45 06/03/18 12:45 06/03/18 12:45 06/03/18 12:45 Oxygen Flow Rate (L/min) 1 Oxygen Delivery Method Room Air Weight: 215 lb Body Mass Index (BMI) 36.8 Intake and Output for Last 24 Hours 06/01/18 06/02/18 06/03/18 23:59 23:59 23:59 Intake Total 0 / 0 3082 / 3082 50 / 50 Output Total 375 / 375 200 / 200 Balance 0 / 0 2707 / 2707 -150 / -150 General: Alert, Oriented x3, Cooperative, No apparent distress HEENT: Atraumatic, PERRLA, EOMI, Normocephalic, - - Pale conjunctiva Oral: Dry Mucosa Neck: Supple, No JVD, Trachea Midline Lungs: Clear to auscultation, Normal air movement, No rhonchi, No wheeze, No rales Cardiovascular: Regular rate, Regular Rhythm, Normal S1, Normal S2, Murmur - 3 out of 6 SONIA which gets softer with inspiration and louder with expiration Abdomen: Soft, Non Tender, Non-Distended, No Hepato-splenomegaly Extremities: No edema, Capillary Refill Less than 3 Seconds Skin: No rashes, No breakdown Neurological: Neuro grossly intact, Sensory exam intact to light touch and pain Psych/Mental Status: Normal Affect, Appropriate Microbiology Past 72 Hours 06/01/18 16:10 Stool Stool Occult Blood (RAMSES) - Final Laboratory Results 06/01/18 15:59: Diff Path Review Reviewed 06/01/18 17:40: Direct Antiglob Test NEG w/POLYSPECIFIC 06/01/18 17:40: Crossmatch See Detail 06/02/18 05:40: Diff Path Review Reviewed 06/02/18 05:40: Lactate Dehydrogenase 255 H 06/02/18 16:40: Urine Color Yellow, Urine Clarity Clear, Urine pH 6.0, Ur Specific [place] 1.015, Urine Protein Negative, Urine Glucose (UA) Normal, Urine Ketones Negative, Urine Occult Blood Negative, Urine Nitrite Negative, Urine Bilirubin Negative, Urine Urobilinogen Normal, Ur Leukocyte Esterase 25 H, Urine RBC 0 SEEN, Urine WBC 0-5 SEEN, Ur Squamous Epith Cells 0 SEEN, Urine Bacteria 0 SEEN, Urine Mucus 0 SEEN 06/02/18 16:45: POC Glucose 137 H 06/02/18 18:35: Hgb 7.5 L, Hct 25.3 L 06/02/18 18:35: Haptoglobin Pending 06/02/18 22:22: POC Glucose 144 H 06/03/18 05:55: WBC 20.2 H, RBC 2.44 L, Hgb 7.0 L, Hct 24.1 L, MCV 98.8, MCH 28.7, MCHC 29.0 L, RDW 20.9 H, RDW Differential 69.7 H, Plt Count 422, MPV 9.3, Immature Gran % (Auto) 0.600, Neut % (Auto) 77.3 H, Lymph % (Auto) 8.6 L, [place] % (Auto) 11.9 H, Eos % (Auto) 1.2, Baso % (Auto) 0.4, Absolute Neuts (auto) 15.6 H , Absolute Lymphs (auto) 1.73, Total Counted Not Reportable, Nucleated RBC % 0.4, Differential Comment SCAN, Diff Path Review May foll, Polychromasia 1+, Hypochromasia 1+, Anisocytosis 2+, Microcytosis 1+, Absolute Retic 0.08 06/03/18 05:55: Sodium 138, Potassium 4.1, Chloride 106, Carbon Dioxide 24.0, Anion Gap 8, BUN 27 H, Creatinine 1.08 H, Estim Creat Clear Calc 40.06, Est GFR (MDRD) Af Amer 64, Est GFR (MDRD) Non-Af 53 L, BUN/Creatinine Ratio 25.0 H, Glucose 112 H, Calcium 8.4 L 06/03/18 06:48: POC Glucose 116 H 06/03/18 11:44: POC Glucose 104 Current Medications Acetaminophen (Tylenol) 650 mg PO Q6H PRN PRN PRN Reason: Mild Pain (1-3)/Temp > 100.7 F Albuterol Sulfate (Ventolin Aerosols) 2.5 mg INHALATION Q4H PRN PRN PRN Reason: SOB &/OR WHEEZING Albuterol Sulfate (Ventolin Aerosols) 2.5 mg INHALATION Q6HWA.RT [facility] Last Admin: 06/03/18 07:21 Dose: Not Given Budesonide (Pulmicort Aerosol) 0.5 mg INHALATION Q12H.RT [facility] Last Admin: 06/03/18 07:21 Dose: 0.5 mg Cholecalciferol (Vitamin D) 1,000 unit PO DAILY [facility] Last Admin: 06/03/18 11:33 Dose: 1,000 unit Dextrose (D50w Syringe) 0 gm IV X1 PRN; Protocol PRN Reason: Hypoglycemia Famotidine (Pepcid) 20 mg PO DAILY [facility] Last Admin: 06/03/18 11:35 Dose: 20 mg Fenofibrate (Tricor) 145 mg PO DAILY [facility] Last Admin: 06/03/18 11:35 Dose: 145 mg Ferrous Sulfate (Ferrous Sulfate) 325 mg PO DAILY@1200 [facility] Last Admin: 06/03/18 11:37 Dose: 325 mg Furosemide (Lasix) 40 mg PO DAILY [facility] Last Admin: 06/03/18 11:35 Dose: Not Given Glucagon () 1 mg IM .X1 PRN PRN Reason: Hypoglycemia Insulin Human Lispro (Humalog Kwikpen (Bkc)) 0 unit SQ TIDAC [facility]; Protocol Last Admin: 06/03/18 09:37 Dose: Not Given Levothyroxine Sodium (Synthroid) 50 mcg PO DAILY@0600 [facility] Last Admin: 06/03/18 05:38 Dose: 50 mcg Loratadine (Claritin) 10 mg PO DAILY [facility] Last Admin: 06/03/18 11:33 Dose: 10 mg Losartan Potassium (Cozaar) 100 mg PO DAILY [facility] Last Admin: 06/03/18 11:35 Dose: Not Given Magnesium Hydroxide (Milk Of Magnesia) 30 ml PO DAILY PRN PRN Reason: Constipation Multivitamins/Minerals (Multivitamin With Minerals) 1 tablet PO DAILY@1200 [facility] Last Admin: 06/03/18 11:37 Dose: 1 tablet Multivitamins/Minerals (Healthy Eyes) 1 capsule PO DAILY [facility] Last Admin: 06/03/18 11:33 Dose: 1 capsule Ondansetron HCl (Zofran) 4 mg IV Q8H PRN PRN PRN Reason: NAUSEA Last Admin: 06/02/18 08:49 Dose: 4 mg Oxycodone HCl (Oxyir) 5 mg PO Q4H PRN PRN PRN Reason: MOD-SEVERE PAIN (4-10/10) Potassium Chloride (K-Dur) 40 meq PO DAILY@0800 [facility] Last Admin: 06/03/18 11:33 Dose: 40 meq Sodium Chloride () 5 - 15 ml IV UD PRN PRN Reason: SALINE FLUSH Last Admin: 06/02/18 01:00 Dose: 10 ml Medical Necessity - Tobacco Use Smoking Status: Former smoker Tobacco Use: Cigarettes Assessment/Plan All Active Problems (Last Reviewed 06/01/18 @ 20:04 by Rodger Nielson DO) Acute blood loss anemia (Acute) Upper GI bleed (Acute) Epistaxis (Acute) Elevated troponin (Acute) Dyspnea on exertion (Acute) 1. Acute blood loss anemia/hematemesis/history of cavernous hemangiomas -Has hemangiomas behind her eyes, and her brain, and in her liver. -Fecal occult stool has been negative -EGD was normal, with only mild gastritis can decrease PPI to Pepcid, negative for H. pylori -Hemoglobin was 7.5 yesterday after her second unit however this morning she was 7 therefore another unit was ordered with a recheck -Haptoglobin is pending, and will add retake count in the morning just to make sure that her bone marrow is responding appropriately to her anemia -She does have a leukocytosis but she is afebrile, UA was unremarkable for infection or hematuria -Unsure where she is bleeding from, she had a colonoscopy 10 years ago and it was normal and at that time they were not going to repeat another one ever again because of how tortuous her colon anatomy was, however since there is no identifiable source we will repeat tomorrow -CT abdomen pelvis with p.o. and IV contrast was unremarkable -Continue with daily iron, continue with Pepcid -Iron level was normal however ferritin was 11 and total iron binding capacity was high with an iron saturation that was low, indicating an iron deficiency anemia 2. 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 fib/elevated troponin/HTN/HLD -She is not a candidate for anticoagulation given her hemangiomas -Worsening aortic valve and mitral valve stenosis possibly due to her anemia -Appreciate cardiology input -Troponin elevation secondary to demand ischemia -Valves are bioprosthetic therefore unlikely to be contributing to any anemia -Continue with her losartan, Lasix and fenofibrate but hold aspirin 3. DM 2 -She is on metformin at home, will hold -Continue with sliding scale insulin and Accu-Cheks DVT: SCDs Code Visit Inpatient E&M: 36647 Subs Hosp L2
[2018-06-03 15:45] LABS: Hematocrit 27.1 % (37-47); Hemoglobin 8.1 g/dl (12.0-15.0)
[2018-06-03 16:35] LABS: Bedside Glucose 106 mg/dL (70-110)
[2018-06-03 23:31] LABS: Bedside Glucose 131 mg/dL (70-110)
[2018-06-04] VITALS (10 sets, daily range): BP systolic 91–138; BP diastolic 51–77; PULSE 60–65; RESP 16–17; TEMP 36.3–37.1; O2SAT 95–99; BMI 36.8
--- NOTE | 2018-06-04 05:55 | EKG12_ITS ---
Test Reason : AM Blood Pressure : / mmHG Vent. Rate : 060 BPM Atrial Rate : 340 BPM P-R Int : 000 ms QRS Dur : 126 ms QT Int : 488 ms P-R-T Axes : 000 -79 115 degrees QTc Int : 488 ms Ventricular-paced rhythm Abnormal ECG When compared with ECG of 01-JUN-2018 16:07, MANUAL COMPARISON REQUIRED, DATA IS UNCONFIRMED Confirmed by JOLIE VAUGHN, LESLEY ([id number]), editor index PAU CLEARY ([id number]) on 06/11/2018 8:57:33 AM Referred By: Lalita Stroud Confirmed By:LESLEY DAVE MD
[2018-06-04] MEDS: Levothyroxine 50 MCG Tablet PO (06:11)
[2018-06-04 06:13] LABS: AST(SGOT) 27 U/L (15-37); Alanine Aminotransfer ALT/SGPT 17 U/L (13-56); Albumin, Serum 3.1 g/dL (3.2-5.0); Alkaline Phosphatase 59 U/L (45-117); Anion Gap 8 (5-15); BUN 19 mg/dL (7-18); Bilirubin, Direct 0.55 mg/dL (0.00-0.30); Calcium,Total 8.4 mg/dL (8.5-10.1); Chloride 104 mmol/L (98-107); EST Glomerular Filtration Rate 58 mL/min (>60); Est Glom Filt Rate - Afr Amer 70 mL/min (>60); Estimated Creatinine Clearance 43.27 ml/min; Globulin 3.2 g/dL (2.2-4.2); Glucose 95 mg/dL (74-106); Potassium 4.2 mmol/L (3.5-5.1); Protein, Total 6.3 g/dL (6.4-8.2); Sodium Level 137 mmol/L (136-145)
[2018-06-04 06:22] LABS: International Normalized Ratio 1.3; Prothrombin Time (Protime)PT. 16.2 SECONDS (11.7-14.9)
[2018-06-04 06:23] LABS: Partial Thromboplast Time 27.5 Seconds (24.1-36.2)
[2018-06-04 06:41] LABS: Absolute Lymphocyte Count 2.36 X10^3/ul (0.83-4.51); Absolute Neutrophil Count 11.1 X10^3/uL (2.0-7.7); Basophil# 0.09 X10^3/uL; Basophil% 0.6 % (0-1); Eosinophil# 0.28 X10^3/uL; Eosinophils% 1.9 % (0-5); Hematocrit 26.8 % (37-47); Hemoglobin 7.9 g/dl (12.0-15.0); Immature Platelet Fraction 2.1 % (1.0-7.9); Lymphocyte # 2.36 X10^3/ul (4.0); Lymphocyte % 16.4 % (19-41); Mean Corp Hgb Conc 29.5 g/gl (32-36); Mean Corpuscular Hgb 29.3 pg (27.0-32.0); Mean Corpuscular Volume 99.3 fL (81-99); Mean Platelet Vol. 9.1 fl (6.2-12.0); Monocyte# 0.57 X10^3/uL; Neutrophil # 11.05 X10^3/uL (2.7-7.7); Neutrophil % 76.5 % (47-70); Platelet Count 423 K/mm3 (150-450); RBC Distribution Width CV 20.4 % (11.6-14.6); RBC Distribution Width SD 67.5 fl (35.1-43.9); RET-HE 23.8 pg (30-35); Reticulocyte Count 13.35 % (0.5-1.5); White Blood Count 14.4 K/mm3 (4.4-11.0)
[2018-06-04 06:55] LABS: Differential Indicated SCAN CRITERIA MET; POSITIVE COUNT NO; POSITIVE DIFFERENTIAL NO; POSITIVE MORPHOLOGY YES
[2018-06-04 06:56] LABS: Bedside Glucose 90 mg/dL (70-110)
[2018-06-04 07:21] LABS: Absolute Nucleated RBC Count 0.06 10^3/uL (0-5); NRBC Flagged by Analyzer 0.4 % (0-5)
[2018-06-04 07:22] LABS: Anisocytosis 1+; Differential Comment SCAN; Hypochromasia 2+; Microcytosis 1+; Polychromasia 1+
[2018-06-04 07:40] LABS: Hemoglobin A1c < 3.5 % (4.2-6.3)
--- NOTE | 2018-06-04 10:48 | CPS ---
Pt does not want Albuterol aerosols, says they make her too jittery.
[2018-06-04 11:16] LABS: Bedside Glucose 84 mg/dL (70-110)
--- NOTE | 2018-06-04 11:30 | EGD_PTH ---
[id number] U#:[id number] AGE/SX: 72/F ROOM: [facility] RE06/01/[address]: Dr. Yvan Duran MD : 1945 BED: 1 DIS: 06/04/2018 SPEC #: [id number] RECD: 06/04/18 14:33 STATUS: MODESTA RENoe #: [id number] GIACOMO: 06/04/18 11:[address]: Gloria Wallace DEPT: SURGICAL PATHOLOGY RECD BY: Walter Bernstein ENTERED: 06/07/18 09:39 SP TYPE: EGD BIOPSY OTHR DR: MD Dr. Jr Thorne MD Dr. Eric Jopperi, DO Dr. Nicholas F Kotsonis, MD Dr. Tamera Robotham, MD Tissues: A - Transverse colon B - Descending colon C - Rectum, NOS Procedures: Surgery Specimen Level IV Comments: @ Ordering doctor for IV edited from to @ by RGOGÓMEZ at 06/08/18 075 @ Submitting doctor edited from to @ by RGOOD at 06/08/18 0752 HEADER OPERATION: EGD ([facility]) PRE-OP DIAGNOSIS: Anemia TISSUE SUBMITTED: A. Transverse colon polyp biopsy, B. Descending colon polyp biopsy, C. Rectal polyp biopsy MICROSCOPIC DIAGNOSIS A. Transverse colon polyp, biopsy: Tubular adenoma. B. Descending colon polyp, biopsy: Tubular adenoma. C. Rectal polyp, biopsy: Fragments of hyperplastic polyp. AM:sybil 06/08/18 MICROSCOPIC DESCRIPTION Slides are reviewed. GROSS DESCRIPTION A - Received in fixative is one container labeled with the patient's name and designated transverse colon polyp. The specimen consists of one irregular fragment of light moreno soft tissue that measures 0.2 x 0.1 x <0.1 cm. The specimen is totally submitted in one cassette. B - Received in fixative is one container labeled with the patient's name and designated descending colon polyp. The specimen consists of one irregular fragment of light moreno soft tissue that measures 0.3 x 0.3 x 0.1 cm. The specimen is totally submitted in one cassette. C - Received in fixative is one container labeled with the patient's name and designated rectal polyp. The specimen consists of multiple irregular fragments of light moreno soft tissue that in aggregate measure 0.7 x 0.2 x 0.1 cm. The specimen is totally submitted in one cassette. / AM:sybil 06/07/18 TC:5 CPT: 54436 x3
[2018-06-04 12:41] LABS: Haptoglobin 61 mg/dL (34-200)
--- NOTE | 2018-06-04 14:25 | OP.ENDO_ITS ---
06/04/2018 Lalita Stroud [address] [place] [address] Re : Colonoscopy procedure for Geno Flores Dear Dr. Stroud This procedure was performed on Monday, June 04, 2018. My impressions and recommendations are as follows: Impressions : - Hemorrhoids found on perianal exam. - Four less than 5 mm polyps in the rectum, in the descending colon and in the transverse colon, removed with a cold biopsy forceps. Resected and retrieved. - Diverticulosis in the sigmoid colon. Recommendations : - [facility]. - ok for carb controlled/Cardiac diet [Duration]. - Await pathology results. - Repeat colonoscopy in 3 - 5 years for surveillance based on pathology results. - Continue present medications. My findings are described in the full procedure note, which is enclosed. If I can be of further assistance, please feel free to contact me at Doctor phone number(s): , Work: . Sincerely, MD Gloria Tracy MD 06/04/2018 2:25:01 PM This report has been signed electronically.
--- NOTE | 2018-06-04 14:57 | DCINST_ITS ---
- Discharge Diagnoses Current Active Problems: Current Active and Chronic Problems (Last Reviewed 06/01/18 @ 20:04 by Rodger Nielson DO) Acute blood loss anemia (Acute) Upper GI bleed (Acute) Epistaxis (Acute) Elevated troponin (Acute) You will use the following diet at home:: Cardiac Your food should be the consistency of: Regular Your liquids should be the consistency of: Regular/Thin Discharge Activity: Return to Normal Activity, No Restrictions Call your doctor if you observe: Fever of 101 or Higher, Shortness of breath, Dizziness, Fainting spells, Swelling in the ankles, Chest pain, Increased palpitations (irregular heartbeat) Allergies/Adverse Reactions: Allergies Penicillins Allergy (Verified 06/01/18 15:06) Hives [id number] Reductase Inhibitor Adverse Reaction (Intermediate, Verified 06/01/18 15:06) myalgias codeine Adverse Reaction (Verified 06/01/18 18:22) HALLUCINATIONS morphine Adverse Reaction (Verified 06/01/18 18:22) HALLUCINATIONS Medications to take at Discharge Vit C/E/Zn/Coppr/Lutein/Zeaxan [Preservision Areds 2 Softgel] 1 ea PO DAILY 10/24/16 albuterol sulfate HFA 90 mcg/actuation aerosol inhaler 2 puff INHALATION Q6H PRN PRN 06/11/17 fluticasone 250 mcg-salmeterol 50 mcg/dose blistr powdr for inhalation 1 inh INHALATION Q12H 06/11/17 levothyroxine 50 mcg tablet 50 mcg PO DAILY tab 06/11/17 metformin ER 750 mg tablet,extended release 24 hr 750 mg PO DAILY 30 Days #30 06/11/17 furosemide 40 mg tablet 40 mg PO DAILY #90 tab 06/12/17 ferrous sulfate 325 mg (65 mg iron) tablet,delayed release 325 mg PO DAILY tab 05/14/18 Cetirizine HCl [Zyrtec] 10 mg PO DAILY 06/01/18 Cholecalciferol (VIT D3) [Vitamin D3] 1,000 unit PO DAILY 06/01/18 Fenofibrate Nanocrystallized [Tricor] 145 mg PO DAILY 06/01/18 Losartan Potassium 100 mg PO DAILY 06/01/18 Multivitamin with Minerals [Multiple Vitamin] 1 each PO DAILY 06/01/18 Potassium Chloride [Klor-Con M20] 40 meq PO DAILY 06/01/18 Aspirin [Aspir 81] 81 mg PO DAILY #0 06/04/18 Primary Care Physician: Lalita Stroud MD [Primary Care Provider] - Please follow up with your Primary Care Physician in: 3-5 days Test Results: Test results from this visit will be discussed in further detail at your follow- up appointment, if applicable. Please Follow Up With: Maryan Francis MD When: 4 weeks
--- NOTE | 2018-06-04 15:06 | DS.PCM_ITS ---
Discharge Date and Diagnosis - Problem List Patient Problems: Active and Suspected Problems (Last Reviewed 06/01/18 @ 20:04 by Rodger Nielson DO) Acute blood loss anemia (Acute) Upper GI bleed (Acute) Epistaxis (Acute) Elevated troponin (Acute) Date of Admission: 06/01/18 Date of Discharge: 06/04/18 - Primary Discharge Diagnosis Active and Suspected Problems (Last Reviewed 06/01/18 @ 20:04 by Rodger Nielson DO) Acute blood loss anemia (Acute) Upper GI bleed (Acute) Epistaxis (Acute) Elevated troponin (Acute) - Secondary Discharge Diagnosis Chronic Problems (Last Reviewed 06/01/18 @ 20:04 by Rodger Nielson DO) Obesity (Chronic) Hypertension (Chronic) Presence of cardiac pacemaker (Chronic ~01/10/15) Persistent atrial fibrillation (Chronic) History of radiofrequency ablation procedure for cardiac arrhythmia (Chronic ~01/10/15) AV Junction Ablation H/O mitral valve replacement (Chronic ~04/26/09) H/O aortic valve replacement (Chronic ~04/26/09) 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 CT Abd/Pelvis: IMPRESSION: Mild hepatomegaly and fatty infiltration of the liver. Sigmoid diverticulosis. Consults: Cardiology General Surgery Operations: None Procedures: Blood transfusion - 3 Units PRBCs, Colonoscopy - Impressions : - Hemorrhoids found on perianal exam. - Four less than 5 mm polyps in the rectum, in the descending colon and in the transverse colon, removed with a cold biopsy forceps. Resected and retrieved. - Diverticulosis in the sigmoid colon. Recommendations : - [facility]. - ok for carb controlled/Cardiac diet [Duration]. - Await pathology results. - Repeat colonoscopy in 3 - 5 years for surveillance based on pathology results. - Continue present medications., EGD - Impressions : - Z-line regular, 35 cm from the incisors. - Normal examined duodenum. - Erythematous mucosa in the antrum. Biopsied. Recommendations : - Await pathology results. - [facility] patient [facility] care. - ok for Cardiac diet [Duration]. - Continue present medications. Summary of Care Provided: Per HPI: The patient is a 72 year old F who has been progressively short of breath for months. Has just steadily gotten worse during this period of time. No new symptoms other than today patient was having vomiting. Decision was made to bring the patient into the doctor's office and there she was found to have a hemoglobin of 6.6. Directed to the emergency room where hemoglobin was 6.5. Patient is ordered a unit of packed red blood cells. Patient denies any hematochezia nor melena. She denied any hematemesis, however, is in the room, patient started choking on some phlegm and then started vomiting and then there were streaks of blood in that. Patient states that that does not usually happen. Patient does have epistaxis was very severe back in January but has not had any severe events since then but has had some minor, per her description, bouts of epistaxis that are self remitting. Hospital Course: 1. 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 On admission her hgb was 6.5 and she received a dose of venofer and a 1 U PRBC's and her hgb was 6.4 the next morning. She underwent an EGD and a colonoscopy which were normal. CT of her abdomen did not demonstrate any bleeding. Her labs were consistent with iron deficiency anemia and a hypoproliferative marrow. She did not demonstrate any active bleeding during her stay, however she did need to have a total of 3 U PRBCs to achieve a hgb of 7.9 on the day of discharge. Her iron study labs were low with a low normal iron and a very low normal ferritin. TIBC was elevated. She did not have any hemolysis or a consumptive anemia with her bioprosthetic aortic and mitral valve, as there were no schistocytes on her smear. She will follow-up with Hematology ion 4 weeks, and will hold her aspirin in the mean time. I would also recommend a recheck of her CBC in 3-5 days by her PCP and if she continues drop her hemoglobin, She will need to go to the infusion clinic for PRBCs. 2. 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 fib/elevated troponin/HTN/HLD- She had an elevated troponin on admission and cardiology was consulted for evaluation, who felt that this was d/t to her significant anemia. She had an echo in 05/19 with high tans-valve gradients and the echo will be repeated once her anemia is corrected to see if this resolves at which time can further investigate her elevated troponin if necessary. Will hold her ASA in the meantime until the cause of her anemia is corrected. 3. Her other medical diagnoses were evaluated and her home medications were continued where appropriate Patient Problems: Active and Suspected Problems (Last Reviewed 06/01/18 @ 20:04 by Rodger Nielson DO) Acute blood loss anemia (Acute) Upper GI bleed (Acute) Epistaxis (Acute) Elevated troponin (Acute) Objective: General: Alert, Oriented x3, Cooperative, No apparent distress HEENT: Atraumatic, PERRLA, EOMI, Normocephalic, Oral: moist Mucosa Neck: Supple, No JVD, Trachea Midline Lungs: Clear to auscultation, Normal air movement, No rhonchi, No wheeze, No rales Cardiovascular: Regular rate, Regular Rhythm, Normal S1, Normal S2, Murmur - 3 out of 6 SONIA which gets softer with inspiration and louder with expiration Abdomen: Soft, Non Tender, Non-Distended, No Hepato-splenomegaly Extremities: No edema, Capillary Refill Less than 3 Seconds Skin: No rashes, No breakdown Neurological: Neuro grossly intact, Sensory exam intact to light touch and pain Psych/Mental Status: Normal Affect, Appropriate - Physical Exam Vital Signs Temp Pulse Resp BP Pulse Ox 97.4 F L 60 16 107/57 L 98 06/04/18 14:40 06/04/18 14:40 06/04/18 14:40 06/04/18 14:40 06/04/18 14:40 Oxygen Flow Rate (L/min) 3 Oxygen Delivery Method Room Air Weight: 214 lb 15.211 oz Body Mass Index (BMI) 36.8 Intake and Output for Last 24 Hours 06/02/18 06/03/18 06/04/18 23:59 23:59 23:59 Intake Total 3082 / 3082 2675 / 2675 750 / 750 Output Total 375 / 375 200 / 200 Balance 2707 / 2707 2475 / 2475 750 / 750 Microbiology Past 72 Hours 06/01/18 16:10 Stool Occult Blood (RAMSES) - Final Stool Laboratory Tests Past 24 Hrs 06/01/18 06/02/18 06/03/18 17:40 18:35 15:25 WBC RBC Hgb 8.1 L Hct 27.1 L MCV MCH MCHC RDW RDW Differential Plt Count MPV Immature Gran % (Auto) Neut % (Auto) Lymph % (Auto) [place] % (Auto) Eos % (Auto) Baso % (Auto) Absolute Neuts (auto) Absolute Lymphs (auto) Total Counted Nucleated RBC % Differential Comment Immature Plt Fraction Polychromasia Hypochromasia Anisocytosis Microcytosis Retic Count Absolute Retic Immature Retic Fraction Retic Hgb Equivalent Haptoglobin 61 PT INR APTT Sodium Potassium Chloride Carbon Dioxide Anion Gap BUN Creatinine Estim Creat Clear Calc Est GFR (MDRD) Af Amer Est GFR (MDRD) Non-Af BUN/Creatinine Ratio Glucose Hemoglobin A1c Calcium Total Bilirubin Direct Bilirubin AST ALT Alkaline Phosphatase Total Protein Albumin Globulin Crossmatch See Detail 06/04/18 06/04/18 06/04/18 05:25 05:25 05:25 WBC 14.4 H RBC 2.70 L Hgb 7.9 L Hct 26.8 L MCV 99.3 H MCH 29.3 MCHC 29.5 L RDW 20.4 H RDW Differential 67.5 H Plt Count 423 MPV 9.1 Immature Gran % (Auto) 0.600 Neut % (Auto) 76.5 H Lymph % (Auto) 16.4 L [place] % (Auto) 4.0 Eos % (Auto) 1.9 Baso % (Auto) 0.6 Absolute Neuts (auto) 11.1 H Absolute Lymphs (auto) 2.36 Total Counted Not Reportable Nucleated RBC % 0.4 Differential Comment SCAN Immature Plt Fraction 2.1 Polychromasia 1+ Hypochromasia 2+ Anisocytosis 1+ Microcytosis 1+ Retic Count 13.35 H Absolute Retic 0.06 Immature Retic Fraction 37.30 H Retic Hgb Equivalent 23.8 L Haptoglobin PT 16.2 H INR 1.3 APTT 27.5 Sodium 137 Potassium 4.2 Chloride 104 Carbon Dioxide 25.0 Anion Gap 8 BUN 19 H Creatinine 1.00 Estim Creat Clear Calc 43.27 Est GFR (MDRD) Af Amer 70 Est GFR (MDRD) Non-Af 58 L BUN/Creatinine Ratio 19.0 Glucose 95 Hemoglobin A1c Calcium 8.4 L Total Bilirubin 0.90 Direct Bilirubin 0.55 H AST 27 ALT 17 Alkaline Phosphatase 59 Total Protein 6.3 L Albumin 3.1 L Globulin 3.2 Crossmatch 06/04/18 05:25 WBC RBC Hgb Hct MCV MCH MCHC RDW RDW Differential Plt Count MPV Immature Gran % (Auto) Neut % (Auto) Lymph % (Auto) [place] % (Auto) Eos % (Auto) Baso % (Auto) Absolute Neuts (auto) Absolute Lymphs (auto) Total Counted Nucleated RBC % Differential Comment Immature Plt Fraction Polychromasia Hypochromasia Anisocytosis Microcytosis Retic Count Absolute Retic Immature Retic Fraction Retic Hgb Equivalent Haptoglobin PT INR APTT Sodium Potassium Chloride Carbon Dioxide Anion Gap BUN Creatinine Estim Creat Clear Calc Est GFR (MDRD) Af Amer Est GFR (MDRD) Non-Af BUN/Creatinine Ratio Glucose Hemoglobin A1c < 3.5 L Calcium Total Bilirubin Direct Bilirubin AST ALT Alkaline Phosphatase Total Protein Albumin Globulin Crossmatch POC Glucose 06/04/18 06/04/18 06/03/18 11:08 06:51 21:37 POC Glucose 84 90 131 H 06/03/18 16:33 POC Glucose 106 Discharge Activity: Return to Normal Activity, No Restrictions Call your doctor if you observe: Fever of 101 or Higher, Shortness of breath, Dizziness, Fainting spells, Swelling in the ankles, Chest pain, Increased palpitations (irregular heartbeat) Home Medications: Medications to take at Discharge Vit C/E/Zn/Coppr/Lutein/Zeaxan [Preservision Areds 2 Softgel] 1 ea PO DAILY 10/24/16 albuterol sulfate HFA 90 mcg/actuation aerosol inhaler 2 puff INHALATION Q6H PRN PRN 06/11/17 fluticasone 250 mcg-salmeterol 50 mcg/dose blistr powdr for inhalation 1 inh INHALATION Q12H 06/11/17 levothyroxine 50 mcg tablet 50 mcg PO DAILY tab 06/11/17 metformin ER 750 mg tablet,extended release 24 hr 750 mg PO DAILY 30 Days #30 06/11/17 furosemide 40 mg tablet 40 mg PO DAILY #90 tab 06/12/17 ferrous sulfate 325 mg (65 mg iron) tablet,delayed release 325 mg PO DAILY tab 05/14/18 Cetirizine HCl [Zyrtec] 10 mg PO DAILY 06/01/18 Cholecalciferol (VIT D3) [Vitamin D3] 1,000 unit PO DAILY 06/01/18 Fenofibrate Nanocrystallized [Tricor] 145 mg PO DAILY 06/01/18 Losartan Potassium 100 mg PO DAILY 06/01/18 Multivitamin with Minerals [Multiple Vitamin] 1 each PO DAILY 06/01/18 Potassium Chloride [Klor-Con M20] 40 meq PO DAILY 06/01/18 Aspirin [Aspir 81] 81 mg PO DAILY #0 06/04/18 Primary Care Physician: Lalita Stroud MD [Primary Care Provider] - Please follow up with your Primary Care Physician in: 3-5 days Please Follow Up With: Maryan Francis MD When: 4 weeks Disposition: Home Minutes spent on discharge:: 35 Patient Condition:: Good Medical Necessity - Tobacco Use Smoking Status: Former smoker Tobacco Use: Cigarettes Meaningful Use Info Meaningful Use Diagnoses (Choose all that apply): None applicable Code Visit Inpatient E&M: 07394 Disch Hosp
--- NOTE | 2018-06-07 14:16 | CASEMGMT ---
AIDA CM DC PHONE CALL DC DATE: 06/04/18 DC Disposition: Home LACE/STRATA: 03/02 Attempted call. No answer, and message machine did not have personal identifier. No message left. Eric DAVID RN ACM
== END 2018-06-04 15:38 | disposition home or self-care (01) | DRG 812 ==
LOC: ED 16:10 → MS3 17:59 → PCU 06-02 02:11 → MS3 06-02 07:16 → PCU 06-02 07:16
PROVIDERS: Surgery; Emergency Provider Emergency Medicine; Family Provider Family Medicine; PCP Family Medicine; Visit Provider Family Medicine
PROC: 0DJ08ZZ Inspection of Upper Intestinal Tract, Via Natural or Artificial Opening Endoscopic (ICD-10-PCS; CPT 43235; principal; 2018-06-02 11:25)
PROC: 0DJD8ZZ Inspection of Lower Intestinal Tract, Via Natural or Artificial Opening Endoscopic (ICD-10-PCS; CPT 45378; principal; 2018-06-04 12:55)
DX: D62 Acute posthemorrhagic anemia (principal); I24.8 Other forms of acute ischemic heart disease; K92.2 Gastrointestinal hemorrhage, unspecified; D50.9 Iron deficiency anemia, unspecified; I48.2 Chronic atrial fibrillation; K62.1 Rectal polyp; K63.5 Polyp of colon; K57.30 Diverticulosis of large intestine without perforation or abscess without bleeding; K64.9 Unspecified hemorrhoids; E11.9 Type 2 diabetes mellitus without complications; D18.03 Hemangioma of intra-abdominal structures; K29.70 Gastritis, unspecified, without bleeding; D18.02 Hemangioma of intracranial structures; I08.0 Rheumatic disorders of both mitral and aortic valves; I10 Essential (primary) hypertension; Z95.3 Presence of xenogenic heart valve; E66.9 Obesity, unspecified; Z95.0 Presence of cardiac pacemaker; Z79.84 Long term (current) use of oral hypoglycemic drugs; Z68.36 Body mass index [BMI] 36.0-36.9, adult; Z87.891 Personal history of nicotine dependence
CPT/HCPCS: 36415; 71045; 74177; 80048; 80076; 81001; 82274; 82607; 82728; 82746; 82962; 83010; 83036; 83540; 83550; 83615; 84439; 84443; 84481; 84484; 85014; 85018; 85025; 85045; 85610; 85730; 86850; 86880; 86900; 86920; 86922; 88305; 88342; 93005; 94640; 99283; J1756; J7040; P9016; Q9967; A4216; J2405; J3490

== ENCOUNTER → 2018-06-08 11:40 | Outpatient (CLI) | payer MEDICARE, OTHER, SELFPAY ==
[2018-06-04 01:21] VITALS: BMI 36.8
[2018-06-08 16:14] LABS: Absolute Lymphocyte Count 0.78 X10^3/ul (0.83-4.51); Absolute Neutrophil Count 6.3 X10^3/uL (2.0-7.7); Basophil# 0.09 X10^3/uL; Basophil% 1.1 % (0-1); Eosinophils% 1.2 % (0-5); Hematocrit 29.9 % (37-47); Hemoglobin 8.5 g/dl (12.0-15.0); Lymphocyte # 0.78 X10^3/ul (4.0); Lymphocyte % 9.2 % (19-41); Mean Corp Hgb Conc 28.4 g/gl (32-36); Mean Corpuscular Hgb 28.3 pg (27.0-32.0); Mean Corpuscular Volume 99.7 fL (81-99); Mean Platelet Vol. 9.3 fl (6.2-12.0); Monocyte# 1.26 X10^3/uL; Monocyte% 14.8 % (0-10); Neutrophil # 6.25 X10^3/uL (2.7-7.7); Neutrophil % 73.5 % (47-70); Platelet Count 578 K/mm3 (150-450); RBC Distribution Width CV 18.7 % (11.6-14.6); RBC Distribution Width SD 67.3 fl (35.1-43.9); White Blood Count 8.5 K/mm3 (4.4-11.0)
[2018-06-08 16:17] LABS: Differential Indicated SCAN CRITERIA MET; POSITIVE COUNT NO; POSITIVE DIFFERENTIAL NO; POSITIVE MORPHOLOGY YES
[2018-06-08 16:50] LABS: Anisocytosis 2+; Hypochromasia 2+; Polychromasia RARE; Target Cells 1+
== END ==
PROVIDERS: Family Provider Family Medicine; PCP Family Medicine; Referring Provider Family Medicine; Visit Provider Family Medicine
DX: D50.0 Iron deficiency anemia secondary to blood loss (chronic) (principal)
CPT/HCPCS: 36415; 85025

== ENCOUNTER → 2018-06-14 14:19 | Outpatient (CLI) | payer MEDICARE, OTHER, SELFPAY ==
[2018-06-04 01:21] VITALS: BMI 36.8
[2018-06-14 15:08] LABS: Basophil# 0.09 X10^3/uL; Basophil% 0.8 % (0-1); Eosinophil# 0.16 X10^3/uL; Eosinophils% 1.4 % (0-5); Hematocrit 28.2 % (37-47); Hemoglobin 7.9 g/dl (12.0-15.0); Lymphocyte % 10.8 % (19-41); Mean Platelet Vol. 8.6 fl (6.2-12.0); Monocyte# 1.55 X10^3/uL; Neutrophil # 8.03 X10^3/uL (2.7-7.7); Neutrophil % 72.6 % (47-70); POSITIVE COUNT NO; POSITIVE DIFFERENTIAL YES; POSITIVE MORPHOLOGY NO; Platelet Count 671 K/mm3 (150-450); RBC Distribution Width CV 17.8 % (11.6-14.6); RBC Distribution Width SD 64.8 fl (35.1-43.9); Red Blood Count 2.82 M/mm3 (4.2-5.4); White Blood Count 11.1 K/mm3 (4.4-11.0)
[2018-06-14 15:09] LABS: Absolute Nucleated RBC Count 0.03 10^3/uL (0-5); Differential Indicated SCAN CRITERIA MET; NRBC Flagged by Analyzer 0.3 % (0-5)
[2018-06-14 15:40] LABS: Differential Comment SCANNED
== END ==
PROVIDERS: Family Provider Family Medicine; PCP Family Medicine; Visit Provider Family Medicine
DX: D50.0 Iron deficiency anemia secondary to blood loss (chronic) (principal)
CPT/HCPCS: 36415; 85025

== ENCOUNTER → 2018-06-21 11:05 | Outpatient (CLI) | payer MEDICARE, OTHER, SELFPAY ==
[2018-06-04 01:21] VITALS: BMI 36.8
[2018-06-21 12:27] LABS: Absolute Neutrophil Count 7.3 X10^3/uL (2.0-7.7); Basophil# 0.12 X10^3/uL; Basophil% 1.2 % (0-1); Eosinophil# 0.19 X10^3/uL; Eosinophils% 1.9 % (0-5); Hematocrit 26.3 % (37-47); Hemoglobin 7.6 g/dl (12.0-15.0); Lymphocyte % 12.8 % (19-41); Mean Corp Hgb Conc 28.9 g/gl (32-36); Mean Corpuscular Volume 100.4 fL (81-99); Mean Platelet Vol. 9.3 fl (6.2-12.0); Monocyte# 1.27 X10^3/uL; Monocyte% 12.5 % (0-10); Neutrophil # 7.27 X10^3/uL (2.7-7.7); Neutrophil % 71.3 % (47-70); Platelet Count 576 K/mm3 (150-450); RBC Distribution Width CV 18.7 % (11.6-14.6); Red Blood Count 2.62 M/mm3 (4.2-5.4); White Blood Count 10.2 K/mm3 (4.4-11.0)
[2018-06-21 12:31] LABS: Differential Indicated SCAN CRITERIA MET; POSITIVE COUNT NO; POSITIVE DIFFERENTIAL NO; POSITIVE MORPHOLOGY YES
[2018-06-21 12:44] LABS: Anisocytosis 2+; Hypochromasia 3+; Macrocytosis 1+; Platelet Estimate ADEQUATE (ADEQ); Polychromasia RARE; Schistocytes RARE; Target Cells RARE
== END ==
PROVIDERS: Family Provider Family Medicine; PCP Family Medicine; Referring Provider Family Medicine; Visit Provider Family Medicine
DX: D50.0 Iron deficiency anemia secondary to blood loss (chronic) (principal)
CPT/HCPCS: 36415; 85025; 86850; 86900; 86920; 86922

== ENCOUNTER → 2018-06-22 08:21 | Outpatient (CLI) | payer MEDICARE, OTHER, SELFPAY ==
[2018-06-04 01:21] VITALS: BMI 36.8
[2018-06-22] VITALS (8 sets, daily range): BP systolic 98–138; BP diastolic 47–55; PULSE 59–80; RESP 16–163; TEMP 36.1–36.7; O2SAT 95–99; BMI 35.9
== END ==
PROVIDERS: Family Provider Family Medicine; PCP Family Medicine; Referring Provider Family Medicine; Visit Provider Family Medicine
DX: D50.0 Iron deficiency anemia secondary to blood loss (chronic) (principal)
CPT/HCPCS: 36415; 36430; 86850; 86900; 86920; 86922; J7040; P9016

== ENCOUNTER → 2018-06-28 11:48 | Outpatient (CLI) | payer MEDICARE, OTHER, SELFPAY ==
[2018-06-22 08:35] VITALS: BMI 35.9
[2018-06-28 14:09] LABS: Absolute Lymphocyte Count 1.21 X10^3/ul (0.83-4.51); Absolute Neutrophil Count 8.1 X10^3/uL (2.0-7.7); Basophil# 0.07 X10^3/uL; Basophil% 0.6 % (0-1); Eosinophil# 0.16 X10^3/uL; Eosinophils% 1.4 % (0-5); Hematocrit 29.9 % (37-47); Hemoglobin 8.7 g/dl (12.0-15.0); Lymphocyte # 1.21 X10^3/ul (4.0); Lymphocyte % 10.9 % (19-41); Mean Corp Hgb Conc 29.1 g/gl (32-36); Mean Corpuscular Hgb 29.3 pg (27.0-32.0); Mean Corpuscular Volume 100.7 fL (81-99); Mean Platelet Vol. 9.3 fl (6.2-12.0); Monocyte# 1.46 X10^3/uL; Monocyte% 13.2 % (0-10); Neutrophil # 8.14 X10^3/uL (2.7-7.7); Neutrophil % 73.5 % (47-70); Platelet Count 687 K/mm3 (150-450); RBC Distribution Width CV 17.5 % (11.6-14.6); RBC Distribution Width SD 64.1 fl (35.1-43.9); Red Blood Count 2.97 M/mm3 (4.2-5.4); White Blood Count 11.1 K/mm3 (4.4-11.0)
[2018-06-28 14:16] LABS: POSITIVE COUNT NO; POSITIVE DIFFERENTIAL NO; POSITIVE MORPHOLOGY NO
== END ==
PROVIDERS: Family Provider Family Medicine; PCP Family Medicine; Visit Provider Family Medicine
DX: D50.0 Iron deficiency anemia secondary to blood loss (chronic) (principal)
CPT/HCPCS: 36415; 85025

== ENCOUNTER 2018-07-21 12:56 | Inpatient (IN) | payer MEDICARE, OTHER, SELFPAY ==
[2018-07-21] VITALS (13 sets, daily range): BP systolic 85–151; BP diastolic 30–75; PULSE 59–89; RESP 14–20; TEMP 36.5–37.2; O2SAT 84–100; BMI 36.8; BMI 38.0; BMI 39.4; BMI 39.5
[2018-07-21 14:00] LABS: AST(SGOT) 37 U/L (15-37); Alanine Aminotransfer ALT/SGPT 16 U/L (13-56); Albumin, Serum 3.5 g/dL (3.2-5.0); Alkaline Phosphatase 75 U/L (45-117); Anion Gap 8 (5-15); BUN 35 mg/dL (7-18); BUN/Creat Ratio 31.2 RATIO (10-20); Calcium,Total 8.9 mg/dL (8.5-10.1); Chloride 101 mmol/L (98-107); Creatinine, Serum 1.12 mg/dL (0.55-1.02); EST Glomerular Filtration Rate 51 mL/min (>60); Est Glom Filt Rate - Afr Amer 61 mL/min (>60); Estimated Creatinine Clearance 37.01 ml/min; Globulin 3.4 g/dL (2.2-4.2); Glucose 142 mg/dL (74-106); International Normalized Ratio 1.3; Partial Thromboplast Time 24.6 Seconds (24.1-36.2); Potassium 3.8 mmol/L (3.5-5.1); Protein, Total 6.9 g/dL (6.4-8.2); Prothrombin Time (Protime)PT. 15.8 SECONDS (11.7-14.9); Sodium Level 136 mmol/L (136-145)
[2018-07-21 14:09] LABS: Absolute Lymphocyte Count 1.77 X10^3/ul (0.83-4.51); Absolute Neutrophil Count 16.9 X10^3/uL (2.0-7.7); Basophil# 0.16 X10^3/uL; Basophil% 0.7 % (0-1); Eosinophil# 0.14 X10^3/uL; Eosinophils% 0.6 % (0-5); Hematocrit 23.4 % (37-47); Hemoglobin 6.9 g/dl (12.0-15.0); Lymphocyte # 1.77 X10^3/ul (4.0); Lymphocyte % 8.1 % (19-41); Mean Corp Hgb Conc 29.5 g/gl (32-36); Mean Corpuscular Hgb 30.7 pg (27.0-32.0); Mean Platelet Vol. 9.4 fl (6.2-12.0); Monocyte# 2.61 X10^3/uL; Neutrophil # 16.87 X10^3/uL (2.7-7.7); Neutrophil % 77.3 % (47-70); Platelet Count 540 K/mm3 (150-450); RBC Distribution Width CV 19.4 % (11.6-14.6); RBC Distribution Width SD 71.6 fl (35.1-43.9); Red Blood Count 2.25 M/mm3 (4.2-5.4); White Blood Count 21.8 K/mm3 (4.4-11.0)
[2018-07-21 14:10] LABS: Differential Indicated SCAN CRITERIA MET; POSITIVE COUNT NO; POSITIVE DIFFERENTIAL YES; POSITIVE MORPHOLOGY YES
--- NOTE | 2018-07-21 15:31 | ED.VISSUMM ---
- ER Visit Summary Date of Service: 07/21/18 Chief Complaint: Anemia History of Present Illness: The patient is a 72 F who presents for anemia. She had an outpatient blood draw that showed a hemoglobin of 6.8. The patient feels weak and slightly short of breath. No other associated symptoms. She does have a history of anemia and has required transfusions in the past. They believe she is losing this from a GI source. She also has a history of iron deficiency. She was recently admitted for anemia and a GI bleed workup. She has had upper and lower endoscopy as well as CT. She is following with hematology. She did have some blood in a bowel movement earlier this morning and then had two normal bowel movements afterwards. 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 Physical Examination: Afebrile and vital signs unremarkable. Alert and oriented. No acute distress. Heart regular. Lungs clear. Abdomen soft. Skin appears normal. Test Results: Hemoglobin 6.9. White count 21.8 and platelets 540. Glucose 142, BUN 35, creatinine 1.12. INR 1.3. PTT normal. Emergency Department Course and Treatment: Patient has a history of leukocytosis and thrombocytosis. She has a history of anemia and was sent for transfusion. Patient gave verbal consent. Will transfuse 2 units of packed red cells. I spoke with her hematology nurse practitioner. They are following up for outpatient care and bleeding scans. There is no indication for repeat admission today. Patient will be transfused and discharged without any issues. She was signed out to the on-call doctor. Treatment Plan: As above Disposition: Discharge after transfusion Impression: 1. Anemia This note was generated with [employer] dictation software. It may contain incorrect words, spelling, and punctuation that were not noted in review of the chart prior to signing ED Disposition - Plan for ED Patient: Referrals: Lalita Stroud MD [Primary Care Provider] -
--- NOTE | 2018-07-21 15:35 | ED.DCSUM_ITS ---
- ER Visit Summary Date of Service: 07/21/18 Chief Complaint: Anemia History of Present Illness: The patient is a 72 F who presents for anemia. She had an outpatient blood draw that showed a hemoglobin of 6.8. The patient feels weak and slightly short of breath. No other associated symptoms. She does have a history of anemia and has required transfusions in the past. They believe she is losing this from a GI source. She also has a history of iron deficiency. She was recently admitted for anemia and a GI bleed workup. She has had upper and lower endoscopy as well as CT. She is following with hematology. She did have some blood in a bowel movement earlier this morning and then had two normal bowel movements afterwards. 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 Physical Examination: Afebrile and vital signs unremarkable. Alert and saniya ented. No acute distress. Heart regular. Lungs clear. Abdomen soft. Skin appears normal. Test Results: Hemoglobin 6.9. White count 21.8 and platelets 540. Glucose 142, BUN 35, creatinine 1.12. INR 1.3. PTT normal. Emergency Department Course and Treatment: Patient has a history of leukocytosis and thrombocytosis. She has a history of anemia and was sent for transfusion. Patient gave verbal consent. Will transfuse 2 units of packed red cells. I spoke with her hematology nurse practitioner. They are following up for o utpatient care and bleeding scans. There is no indication for repeat admission today. Patient will be transfused and discharged without any issues. She was signed out to the on-call doctor. Treatment Plan: As above Disposition: Discharge after transfusion Impression: 1. Anemia This note was generated with [employer] dictation software. It may contain incorrect words, spelling, and punctuation that were not noted in review of the chart prior to signing ED Disposition - Plan for ED Patient: Referrals: Lalita Stroud MD [Primary Care Provider] -
--- NOTE | 2018-07-21 15:35 | ED.DEP ---
ED Disposition - Plan for ED Patient: Instructions: ED Anemia Type Not Specified Referrals: Maryan Francis MD [STAFF PHYSICIAN] -
--- NOTE | 2018-07-21 17:47 | CASEMGMT ---
RN CM Assessment Introduced role of RN CM to patient.? Patient is alert, oriented and able?to participate in RN CM Assessment. ?Care providers, pharmacy, and demographics verified. Presentation: SOB, Weakness. Had Blood work done at [facility] and Hgb low Admit Dx: Re-Admit: No, Admitted 06/01-06/04/18 for Anemia/UGIB Barriers/Issues: None PCP: Lalita Cooper Specialists: Cardio- Dr Smith, Pulm- Dr Alexandra, Hem- Dr Francis, Cardiac Surgeon (New) @[facility]- Dr Conde, Endo- @[facility], Dr Ramirez? Preferred Pharmacy: [facility], [place] Insurance: [employer], Physician [facility] Benefit:?Yes LNOK: Dtr- Megan Lifer LW/HPOA: Yes, HPOA- Dtr Megan Lifer Living Arrangements:? Lives alone in a SS Home, 5 steps to enter ADL?s: Independent with ambulation and ADL's Transportation: Patient drives, family or friend to transport on DC DME: Home O2 1L at night with CPAP-Pardeep Wisair/Bob, Nebulizer, Shower Chair. HHC: None SNF: None Goal: Home DC PLAN: Home with no anticipated needs identified at this time. Garrison Cummings RNCM
--- NOTE | 2018-07-21 17:50 | NURSING ---
MED SURG ANEMIA WHITE
--- NOTE | 2018-07-21 17:57 | PCM.HP.STD ---
Problem List (1) Iron deficiency anemia Status: Acute (2) Diastolic CHF Status: Chronic (3) Obesity Status: Chronic (4) Hypertension Status: Chronic Qualifiers: (5) Presence of cardiac pacemaker Status: Chronic (6) Persistent atrial fibrillation Status: Chronic (7) History of radiofrequency ablation procedure for cardiac arrhythmia Status: Chronic Comment: AV Junction Ablation (8) H/O mitral valve replacement Status: Chronic (9) H/O aortic valve replacement Status: Chronic History of Present Illness Date of Admission: 07/21/18 Chief Complaint: Fatigue The patient is a 72 year old F with pmhx of iron deficiency anemia, diastolic CHF, bovine mitral and aortic valves, paroxysmal Afib, COPD, DMt2, who presented to the ER from Dr. Francis' office where she was being seen for fatigue. The patient was here 05/2018 admitted for anemia. She underwent an EGD and colonoscopy with Dr. Wallace and no source of bleed was found. She was started on iron. She has been following up with oncology. On thursday she became much more fatigued. It has progressively worsened and she has developed SOB, and nausea without vomiting as well. In the office today her Hgb was 6.9. She reported black stools this AM. She normally does not have black stools despite PO iron. She is also due for venofer infusion tomorrow. She has 2-3+ LE edema. She states she is also due for having both of her valve replacements redone at the clinic soon. She has a long smoking hx, mother had anemia, and her dad and brother have hx of cancer. 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) Medical History: Medical History (Last Reviewed 07/21/18 @ 12:10 by Saba Carlos) Obesity (Chronic) E66.9 Hypertension (Chronic) I10 Persistent atrial fibrillation (Chronic) I48.1 Rheumatic mitral stenosis with insufficiency (Chronic) I05.2 Rheumatic aortic stenosis with insufficiency (Chronic) I06.2 cataract removal left eye DVT of lower extremity, bilateral I82.403 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, liver and left eye Hypothyroidism E03.9 Osteoarthritis M19.90 Rheumatic fever I00 Sleep apnea G47.30 History of hysterectomy Z90.710 Allergies Penicillins Allergy (Severe, Verified 07/21/18 13:00) Hives swelling of tongue and throat codeine Adverse Reaction (Severe, Verified 07/21/18 13:00) HALLUCINATIONS morphine Adverse Reaction (Severe, Verified 07/21/18 13:00) HALLUCINATIONS Gjluaje-Oqa-Vkb Reductase Inhibitor Adverse Reaction (Severe, Verified 07/21/18 13:00) Other leg cramps Home Medications: Ambulatory Orders Medication Instructions Recorded Vit C/E/Zn/Coppr/Lutein/Zeaxan 1 ea PO BID 10/24/16 [Preservision Areds 2 Softgel] albuterol sulfate HFA 90 2 puff INHALATION Q6H PRN PRN 06/11/17 mcg/actuation aerosol inhaler fluticasone 250 mcg-salmeterol 50 1 inh INHALATION Q12H 06/11/17 mcg/dose blistr powdr for inhalation levothyroxine 50 mcg tablet 50 mcg PO DAILY tab 06/11/17 metformin ER 750 mg 750 mg PO DAILY 30 Days #30 06/11/17 tablet,extended release 24 hr ferrous sulfate 325 mg (65 mg 325 mg PO BID tab 05/14/18 iron) tablet,delayed release Cetirizine HCl [Zyrtec] 10 mg PO DAILY 06/01/18 Cholecalciferol (VIT D3) [Vitamin 1,000 unit PO DAILY 06/01/18 D3] Fenofibrate Nanocrystallized 145 mg PO DAILY 06/01/18 [Tricor] Losartan Potassium 100 mg PO DAILY 06/01/18 Multivitamin with Minerals 1 ea PO DAILY 06/01/18 [Multiple Vitamin] Aspirin [Aspir 81] 81 mg PO DAILY #0 06/04/18 potassium chloride ER 20 mEq 40 meq PO DAILY #180 tab 06/30/18 tablet,extended release(part/cryst) Furosemide 40 mg PO BID 07/21/18 Surgical History: Surgical History (Last Reviewed 07/21/18 @ 12:10 by Saba Carlos) Presence of cardiac pacemaker (Chronic) Onset Date: ~01/10/15 Z95.0 History of radiofrequency ablation procedure for cardiac arrhythmia (Chronic) Onset Date: ~01/10/15 Z98.890 AV Junction Ablation H/O mitral valve replacement (Chronic) Onset Date: ~04/26/09 Z95.2 H/O aortic valve replacement (Chronic) Onset Date: ~04/26/09 Z95.2 History of appendectomy Z90.49 History of tonsillectomy and adenoidectomy Z98.890 History of removal of cyst Z98.890 right breast Hx of cholecystectomy Z90.49 tracheostomy Onset Date: ~12/03/072007 Surgical History: - - Aortic and mitral valve replacement Psychiatric History: 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 psych hx SOCIAL ECONOMIST History: 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 SOCIAL ECONOMIST history Lives: Alone Smoking Status: Former smoker Tobacco Use: Non-smoker Alcohol: None Drugs: None - *Family History Maternal Family History: Family History (Last Reviewed 07/21/18 @ 12:10 by Saba Carlos) Brother Kidney disease Father Heart disease Prostate cancer Grandmother Breast cancer History Items: - - anemia Review of Systems Constitutional: Reports: Malaise, Weakness, Fatigue. Denies: Chills, Fever, Weight Change HEENT: Denies: Head Aches, Sinus Congestion, Sinus Drainage Cardiovascular: Denies: Chest Pain, Palpitations Respiratory: Denies: Cough, Shortness of breath at rest, Sputum production Gastrointestinal: Reports: - - black stools this AM.. Denies: Abdominal Pain, Nausea, Vomiting Genitourinary: Denies: Dysuria Musculoskeletal: Denies: Joint Pain, Joint Tenderness Skin: Denies: Rash, Wounds Neurological: Denies: Numbness, Tingling, Focal weakness Psychiatric: Denies: Anxiety, Depression, Homicidal Ideations, Suicidal Ideations Hematologic/ Lymphatic: Denies: Easy Bruising, Easy Bleeding VTE Information - Inpt Only VTE Present on Admission: No VTE Mechan Device Prophylaxis: SCD's VTE Pharm Prophylaxis ordered?: No Reason prophylaxis not ordered:: Medical Contraindication Patient Problems: Active and Suspected Problems (Last Reviewed 07/21/18 @ 12:10 by Saba L Picklesimer) Iron deficiency anemia (Acute) - Physical Exam General: Alert, Oriented x3, Cooperative HEENT: Atraumatic, PERRLA, EOMI, Normocephalic Neck: Supple, No JVD, Negative Carotid Bruits Lungs: Clear to auscultation, Normal air movement Cardiovascular: Regular rate, Murmur - 3/6 sysolic murmur best over LSB 2nd ICS Abdomen: Bowel Sounds Present, Soft, Non Tender Extremities: Capillary Refill Less than 3 Seconds, Edema - 2-3+ pitting edema Skin: No rashes, No breakdown Musculoskeletal: No Tenderness to Palpation of Joints or Extremities Neurological: Cranial nerves II-XII grossly intact Psych/Mental Status: Normal Affect, Appropriate, Alert and oriented to time, place, person, mood and affect Vital Signs Temp Pulse Resp BP Pulse Ox 98.1 F 60 17 98/54 L 100 07/21/18 17:11 07/21/18 17:11 07/21/18 17:11 07/21/18 17:37 07/21/18 17:37 Oxygen Flow Rate (L/min) 2 Oxygen Delivery Method Room Air Weight: 218 lb Body Mass Index (BMI) 38.0 Intake and Output for Last 24 Hours 07/19/18 07/20/18 07/21/18 23:59 23:59 23:59 Intake Total 0 / 0 Balance 0 / 0 Laboratory Tests Past 24 Hrs 07/21/18 07/21/18 07/21/18 13:30 13:30 13:30 WBC 21.8 H RBC 2.25 L Hgb 6.9 L Hct 23.4 L MCV 104.0 H MCH 30.7 MCHC 29.5 L RDW 19.4 H RDW Differential 71.6 H Plt Count 540 H MPV 9.4 Immature Gran % (Auto) 1.300 H Neut % (Auto) 77.3 H Lymph % (Auto) 8.1 L [place] % (Auto) 12.0 H Eos % (Auto) 0.6 Baso % (Auto) 0.7 Absolute Neuts (auto) 16.9 H Absolute Lymphs (auto) 1.77 Total Counted Not Reportable Differential Comment COMMENT Diff Path Review July foll PT 15.8 H INR 1.3 APTT 24.6 Sodium 136 Potassium 3.8 Chloride 101 Carbon Dioxide 27.0 Anion Gap 8 BUN 35 H Creatinine 1.12 H Estim Creat Clear Calc 37.01 Est GFR (MDRD) Af Amer 61 Est GFR (MDRD) Non-Af 51 L BUN/Creatinine Ratio 31.2 H Glucose 142 H Calcium 8.9 Total Bilirubin 0.60 AST 37 ALT 16 Alkaline Phosphatase 75 Total Protein 6.9 Albumin 3.5 Globulin 3.4 Albumin/Globulin Ratio 1.0 Blood Type Antibody Screen Crossmatch 07/21/18 13:30 WBC RBC Hgb Hct MCV MCH MCHC RDW RDW Differential Plt Count MPV Immature Gran % (Auto) Neut % (Auto) Lymph % (Auto) [place] % (Auto) Eos % (Auto) Baso % (Auto) Absolute Neuts (auto) Absolute Lymphs (auto) Total Counted Differential Comment Diff Path Review PT INR APTT Sodium Potassium Chloride Carbon Dioxide Anion Gap BUN Creatinine Estim Creat Clear Calc Est GFR (MDRD) Af Amer Est GFR (MDRD) Non-Af BUN/Creatinine Ratio Glucose Calcium Total Bilirubin AST ALT Alkaline Phosphatase Total Protein Albumin Globulin Albumin/Globulin Ratio Blood Type O NEGATIVE Antibody Screen NEGATIVE Crossmatch See Detail Assessment/Plan All Active Problems (Last Reviewed 07/21/18 @ 12:10 by Saba Carlos) Dyspnea on exertion (Acute) Acute blood loss anemia (Acute) Upper GI bleed (Acute) Epistaxis (Acute) Elevated troponin (Acute) Iron deficiency anemia (Acute) 1. Acute on chronic iron deficiency anemia - black stools this AM. Colon/EGD 05/[address] Wallace. Consult Dr. Francis. Transfuse 2 units PRBC, 40 lasix in between, 200 mg IV venofer. Stop aspirin. IV protonix BID. -She had transient hypotension in the ER, this has resolved. Continue IV fluids. 2. Leukocytosis - unclear etiology, progressively increasing on prior labs. + brother and father had cancer, mother had chronic anemia unclear etiology, patient was a nursing home smoker. 3. Hx diastolic CHF - continue home lasix. lungs are clear, however 2-3+ LE pitting edema - additional 40 mg IV lasix in between two units of blood 4. Hx Mitral and Aortic valve replacements - bovine. 3/6 murmur. She states these are due for replacement. 5. DMt2 - SSI. Hold metformin 6. Hx Hemangiomas - Eye, liver. No OAC. 7. Hx Paroxysmal Afib - no OAC 2/2 #6. Rate controlled. Has pacemaker. 8. CKD III - stable 9. Hx COPD - stable 10. Former smoker - from age 18 to 61. 11. HTN - hold orals for hypotension. resume in am if stable. DVT ppx: SCDs This patient was seen by Jason Noriega PA-C under the supervision of Dr. Bailey.
--- NOTE | 2018-07-21 19:07 | RAD_ITS ---
STUDY: X-RAY CHEST REASON FOR EXAM: Female, 72 years old. Dyspnea. TECHNIQUE: PA and lateral views of the chest. COMPARISON: June 01, 2018. FINDINGS: The lungs are clear and expanded. There is no demonstrated pleural abnormality. Sternal cerclage wires are present from a prior sternotomy. The heart is mildly enlarged. Stable cardiac pacemaker. Normal mediastinum and derek. Normal visualized pulmonary arteries. There is atherosclerotic calcification of the aortic arch with tortuosity. There are diffuse degenerative changes of the visualized thoracic spine. There is degenerative osteoarthritis of the bilateral shoulders. There is no demonstrated abnormality of the visualized soft tissue structures of the upper abdomen. RAD/Chest PA and Lateral IMPRESSION: 1. Cardiomegaly with cardiac pacemaker and evidence of median sternotomy. 2. No acute pulmonary disease. There is resolution of the interstitial prominence seen on the prior examination. Electronically Signed: Wojciech Hassan DO at 20:47 EDT Tel [phone], Service support ,
[2018-07-21 20:27] LABS: Bacteria 0 SEEN /hpf (None Seen); Mucous, Urine 0 SEEN /hpf (<or=2+); Red Blood Cells-Urine 0 SEEN /hpf (0-5)
[2018-07-21 20:32] LABS: Color, Urine Yellow (Yellow); Glucose, Dipstick Normal (Normal); Ketone-Dipstick Negative (Negative); Leukocyte Esterase-Dipstick 100 /ul (Negative); Nitrite-Dipstick Negative (Negative); Occult Blood-Urine Negative /ul (Negative); Protein-Dipstick Negative (Negative); Urine Bilirubin Dipstick Negative (Negative); Urine Clarity Clear (Clear); Urine Urobilinogen Normal (Normal)
[2018-07-21 20:40] LABS: Squamous Epithelial Cells - UA 0-5 SEEN /hpf (5-10); White Blood Cells 0-5 SEEN /hpf (0-5)
[2018-07-21 21:29] LABS: Magnesium 1.9 mg/dL (1.6-2.6); Phosphorus 3.5 mg/dL (2.5-4.9)
[2018-07-21] MEDS: Furosemide 40 MG/4 ML Vial IV (21:48)
[2018-07-21] MEDS: Ondansetron 4 MG/2 ML Vial IV (21:53)
--- NOTE | 2018-07-21 22:18 | CPS ---
Pts. home PAP unit set-up @ bedside. Water chamber is filled. Mask is in reach. 1L of O2 was bled into machine. Pt understands to contact RN to let RT know if any problems occur with her machine throughout the night.
[2018-07-21] MEDS: Insulin Lispro 100 UNIT/ML INSULN.PEN SC (23:12)
[2018-07-21 23:20] LABS: Bedside Glucose 158 mg/dL (70-110)
[2018-07-22] VITALS (30 sets, daily range): BP systolic 78–126; BP diastolic 34–69; PULSE 55–66; RESP 12–18; TEMP 36.6–37.3; O2SAT 92–100; BMI 39.4
[2018-07-22] MEDS: 0.9% Normal Saline 1,000 ML 100 ML IV ×2 (01:14→11:31)
[2018-07-22 03:08] LABS: Hematocrit 24.8 % (37-47); Hemoglobin 7.6 g/dl (12.0-15.0)
[2018-07-22] MEDS: Levothyroxine 50 MCG Tablet PO (05:47)
[2018-07-22 06:35] LABS: Absolute Lymphocyte Count 1.76 X10^3/ul (0.83-4.51); Basophil# 0.09 X10^3/uL; Basophil% 0.5 % (0-1); Eosinophil# 0.17 X10^3/uL; Hemoglobin 7.8 g/dl (12.0-15.0); Lymphocyte # 1.76 X10^3/ul (4.0); Lymphocyte % 10.3 % (19-41); Mean Corp Hgb Conc 31.2 g/gl (32-36); Mean Corpuscular Hgb 30.6 pg (27.0-32.0); Mean Platelet Vol. 9.4 fl (6.2-12.0); Monocyte# 1.81 X10^3/uL; Monocyte% 10.6 % (0-10); Neutrophil # 12.98 X10^3/uL (2.7-7.7); Neutrophil % 76.4 % (47-70); Platelet Count 418 K/mm3 (150-450); RBC Distribution Width SD 72.1 fl (35.1-43.9); Red Blood Count 2.55 M/mm3 (4.2-5.4)
[2018-07-22 06:37] LABS: Anion Gap 10 (5-15); BUN 38 mg/dL (7-18); BUN/Creat Ratio 37.6 RATIO (10-20); Calcium,Total 8.2 mg/dL (8.5-10.1); Chloride 106 mmol/L (98-107); Creatinine, Serum 1.01 mg/dL (0.55-1.02); EST Glomerular Filtration Rate 57 mL/min (>60); Est Glom Filt Rate - Afr Amer 69 mL/min (>60); Estimated Creatinine Clearance 41.04 ml/min; Glucose 163 mg/dL (74-106); Potassium 3.8 mmol/L (3.5-5.1); Sodium Level 138 mmol/L (136-145)
[2018-07-22 06:40] LABS: POSITIVE COUNT NO; POSITIVE DIFFERENTIAL YES; POSITIVE MORPHOLOGY YES
[2018-07-22 06:41] LABS: Differential Indicated SCAN CRITERIA MET
[2018-07-22 07:00] LABS: Anisocytosis 2+; Differential Comment SCAN; Hypochromasia 1+; Microcytosis 1+; Platelet Estimate ADEQUATE (ADEQ); Platelet Morphology LARGE; Polychromasia 1+
[2018-07-22 07:11] LABS: Bedside Glucose 143 mg/dL (70-110)
[2018-07-22] MEDS: Ipratropium/Albuterol Sulfate 3 ML AMPUL.NEB INHALATION (07:29)
--- NOTE | 2018-07-22 08:01 | PCM.CONS.GEN ---
Reason for Consult Date of Consultation: 07/22/18 History of Present Illness: The patient is a 72 year old F admitted due to fatigue as well as anemia. Patient was seen at regulatory analyst office where her hemoglobin was noted to be low at 6.9 she was told to go to the ER. Patient states that yesterday she did have one loose darker stool that may be almost black. Patient denies having these previously she was states she is previously been having dark brown stools the patient is on iron. Patient's fecal occult blood test was positive. Patient states she had a vomit this morning that was dark brown and solid. Patient underwent EGD and colonoscopy beginning of last month which did not show any source of bleeding at that time. Patient's hemoglobin was 8.1 she last hospitalization last month went up to the highest at 8.7 at the beginning of June and then slowly trended down to 8.5 on 07/01/18 last check was 6.8 prior to admit. Pt denies abd pain/n/v. Patient is trying to have valve replacement done at [facility] however she is worried that her hemoglobin is not stable she will not be able to get that done. 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) Medical History: Medical History (Last Reviewed 07/21/18 @ 12:10 by Saba Carlos) Obesity (Chronic) E66.9 Hypertension (Chronic) I10 Persistent atrial fibrillation (Chronic) I48.1 Rheumatic mitral stenosis with insufficiency (Chronic) I05.2 Rheumatic aortic stenosis with insufficiency (Chronic) I06.2 cataract removal left eye DVT of lower extremity, bilateral I82.403 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, liver and left eye Hypothyroidism E03.9 Osteoarthritis M19.90 Rheumatic fever I00 Sleep apnea G47.30 History of hysterectomy Z90.710 Allergies Penicillins Allergy (Severe, Verified 07/21/18 13:00) Hives swelling of tongue and throat codeine Adverse Reaction (Severe, Verified 07/21/18 13:00) HALLUCINATIONS morphine Adverse Reaction (Severe, Verified 07/21/18 13:00) HALLUCINATIONS Aswhrez-Qbk-Ugu Reductase Inhibitor Adverse Reaction (Severe, Verified 07/21/18 13:00) Other leg cramps Home Medications: Ambulatory Orders Medication Instructions Recorded Vit C/E/Zn/Coppr/Lutein/Zeaxan 1 ea PO BID 10/24/16 [Preservision Areds 2 Softgel] albuterol sulfate HFA 90 2 puff INHALATION Q6H PRN PRN 06/11/17 mcg/actuation aerosol inhaler fluticasone 250 mcg-salmeterol 50 1 inh INHALATION Q12H 06/11/17 mcg/dose blistr powdr for inhalation levothyroxine 50 mcg tablet 50 mcg PO DAILY tab 06/11/17 metformin ER 750 mg 750 mg PO DAILY 30 Days #30 06/11/17 tablet,extended release 24 hr ferrous sulfate 325 mg (65 mg 325 mg PO BID tab 05/14/18 iron) tablet,delayed release Cetirizine HCl [Zyrtec] 10 mg PO DAILY 06/01/18 Cholecalciferol (VIT D3) [Vitamin 1,000 unit PO DAILY 06/01/18 D3] Fenofibrate Nanocrystallized 145 mg PO DAILY 06/01/18 [Tricor] Losartan Potassium 100 mg PO DAILY 06/01/18 Multivitamin with Minerals 1 ea PO DAILY 06/01/18 [Multiple Vitamin] Aspirin [Aspir 81] 81 mg PO DAILY #0 06/04/18 Ascorbic Acid [Vitamin C] 1,000 mg PO DAILY 07/21/18 Furosemide 40 mg PO BID 07/21/18 Potassium Chloride [Klor-Con M20] 20 meq PO BID 07/21/18 Surgical History: Surgical History (Last Reviewed 07/21/18 @ 12:10 by Saba Carlos) Presence of cardiac pacemaker (Chronic) Onset Date: ~01/10/15 Z95.0 History of radiofrequency ablation procedure for cardiac arrhythmia (Chronic) Onset Date: ~01/10/15 Z98.890 AV Junction Ablation H/O mitral valve replacement (Chronic) Onset Date: ~04/26/09 Z95.2 H/O aortic valve replacement (Chronic) Onset Date: ~04/26/09 Z95.2 History of appendectomy Z90.49 History of tonsillectomy and adenoidectomy Z98.890 History of removal of cyst Z98.890 right breast Hx of cholecystectomy Z90.49 tracheostomy Onset Date: ~12/03/072007 Surgical History: - - Aortic and mitral valve replacement Psychiatric History: 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 psych hx DRILL PRESS TENDER History: 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 DRILL PRESS TENDER history Lives: Alone Smoking Status: Former smoker Tobacco Use: Non-smoker Alcohol: None Drugs: None - *Family History Maternal Family History: Family History (Last Reviewed 07/21/18 @ 12:10 by Saba Carlos) Brother Kidney disease Father Heart disease Prostate cancer Grandmother Breast cancer History Items: - - anemia Review of Systems Constitutional: Denies: Anorexia Eyes: Denies: Blurred vision HEENT: Denies: Difficulty Swallowing Cardiovascular: Denies: Chest Pain Respiratory: Reports: Shortness of Breath - On admit improved Gastrointestinal: Reports: Nausea, Melena. Denies: Abdominal Pain, Hematemesis, Hematochezia, Vomiting Genitourinary: Denies: Dysuria Neurological: Denies: Balance problems Psychiatric: Denies: Depression Hematologic/ Lymphatic: Reports: Anemia Patient Problems: Active and Suspected Problems (Last Reviewed 07/21/18 @ 12:10 by Saba Carlos) Iron deficiency anemia (Acute) Anemia (Acute) - Physical Exam General: Alert, Oriented x3, Cooperative, No apparent distress HEENT: Atraumatic Lungs: Normal air movement Abdomen: Soft, Non Tender, Non-Distended Extremities: No clubbing, No cyanosis, Edema - Bilateral extremities wrapped with Sanjay wraps Neurological: Cranial nerves II-XII grossly intact Psych/Mental Status: Normal Affect Vital Signs Temp Pulse Resp BP Pulse Ox 97.8 F 60 16 111/56 L 95 07/22/18 05:02 07/22/18 07:29 07/22/18 07:29 07/22/18 05:02 07/22/18 07:29 Oxygen Flow Rate (L/min) 1 Oxygen Delivery Method Room Air Weight: 223 lb Body Mass Index (BMI) 39.4 Intake and Output for Last 24 Hours 07/20/18 07/21/18 07/22/18 23:59 23:59 23:59 Intake Total 400 / 400 2500 / 2500 Output Total 800 / 800 Balance 400 / 400 1700 / 1700 Microbiology Past 72 Hours 07/22/18 05:30 Stool Occult Blood (RAMSES) - Final Stool Occult Blood Positive Laboratory Tests Past 24 Hrs 07/21/18 07/21/18 07/21/18 13:30 13:30 13:30 WBC 21.8 H RBC 2.25 L Hgb 6.9 L Hct 23.4 L MCV 104.0 H MCH 30.7 MCHC 29.5 L RDW 19.4 H RDW Differential 71.6 H Plt Count 540 H MPV 9.4 Immature Gran % (Auto) 1.300 H Neut % (Auto) 77.3 H Lymph % (Auto) 8.1 L [place] % (Auto) 12.0 H Eos % (Auto) 0.6 Baso % (Auto) 0.7 Absolute Neuts (auto) 16.9 H Absolute Lymphs (auto) 1.77 Total Counted Not Reportable Differential Comment COMMENT Diff Path Review May foll Platelet Estimate Plt Morphology Comment Polychromasia Hypochromasia Anisocytosis Microcytosis PT 15.8 H INR 1.3 APTT 24.6 Sodium 136 Potassium 3.8 Chloride 101 Carbon Dioxide 27.0 Anion Gap 8 BUN 35 H Creatinine 1.12 H Estim Creat Clear Calc 37.01 Est GFR (MDRD) Af Amer 61 Est GFR (MDRD) Non-Af 51 L BUN/Creatinine Ratio 31.2 H Glucose 142 H Calcium 8.9 Phosphorus Magnesium Total Bilirubin 0.60 AST 37 ALT 16 Alkaline Phosphatase 75 Total Protein 6.9 Albumin 3.5 Globulin 3.4 Albumin/Globulin Ratio 1.0 Urine Color Urine Clarity Urine pH Ur Specific [place] Urine Protein Urine Glucose (UA) Urine Ketones Urine Occult Blood Urine Nitrite Urine Bilirubin Urine Urobilinogen Ur Leukocyte Esterase Urine RBC Urine WBC Ur Squamous Epith Cells Urine Bacteria Urine Mucus Blood Type Antibody Screen Crossmatch 07/21/18 07/21/18 07/21/18 13:30 20:15 20:58 WBC RBC Hgb Hct MCV MCH MCHC RDW RDW Differential Plt Count MPV Immature Gran % (Auto) Neut % (Auto) Lymph % (Auto) [place] % (Auto) Eos % (Auto) Baso % (Auto) Absolute Neuts (auto) Absolute Lymphs (auto) Total Counted Differential Comment Diff Path Review Platelet Estimate Plt Morphology Comment Polychromasia Hypochromasia Anisocytosis Microcytosis PT INR APTT Sodium Potassium Chloride Carbon Dioxide Anion Gap BUN Creatinine Estim Creat Clear Calc Est GFR (MDRD) Af Amer Est GFR (MDRD) Non-Af BUN/Creatinine Ratio Glucose Calcium Phosphorus 3.5 Magnesium 1.9 Total Bilirubin AST ALT Alkaline Phosphatase Total Protein Albumin Globulin Albumin/Globulin Ratio Urine Color Yellow Urine Clarity Clear Urine pH 5.0 Ur Specific [place] 1.020 Urine Protein Negative Urine Glucose (UA) Normal Urine Ketones Negative Urine Occult Blood Negative Urine Nitrite Negative Urine Bilirubin Negative Urine Urobilinogen Normal Ur Leukocyte Esterase 100 H Urine RBC 0 SEEN Urine WBC 0-5 SEEN Ur Squamous Epith Cells 0-5 SEEN Urine Bacteria 0 SEEN Urine Mucus 0 SEEN Blood Type O NEGATIVE Antibody Screen NEGATIVE Crossmatch See Detail 07/22/18 07/22/18 07/22/18 02:52 05:52 05:52 WBC 17.0 H RBC 2.55 L Hgb 7.6 L 7.8 L Hct 24.8 L 25.0 L MCV 98.0 MCH 30.6 MCHC 31.2 L RDW 21.0 H RDW Differential 72.1 H Plt Count 418 MPV 9.4 Immature Gran % (Auto) 1.200 H Neut % (Auto) 76.4 H Lymph % (Auto) 10.3 L [place] % (Auto) 10.6 H Eos % (Auto) 1.0 Baso % (Auto) 0.5 Absolute Neuts (auto) 13.0 H Absolute Lymphs (auto) 1.76 Total Counted Not Reportable Differential Comment SCAN Diff Path Review May foll Platelet Estimate ADEQUATE Plt Morphology Comment LARGE Polychromasia 1+ Hypochromasia 1+ Anisocytosis 2+ Microcytosis 1+ PT INR APTT Sodium 138 Potassium 3.8 Chloride 106 Carbon Dioxide 22.0 Anion Gap 10 BUN 38 H Creatinine 1.01 Estim Creat Clear Calc 41.04 Est GFR (MDRD) Af Amer 69 Est GFR (MDRD) Non-Af 57 L BUN/Creatinine Ratio 37.6 H Glucose 163 H Calcium 8.2 L Phosphorus Magnesium Total Bilirubin AST ALT Alkaline Phosphatase Total Protein Albumin Globulin Albumin/Globulin Ratio Urine Color Urine Clarity Urine pH Ur Specific [place] Urine Protein Urine Glucose (UA) Urine Ketones Urine Occult Blood Urine Nitrite Urine Bilirubin Urine Urobilinogen Ur Leukocyte Esterase Urine RBC Urine WBC Ur Squamous Epith Cells Urine Bacteria Urine Mucus Blood Type Antibody Screen Crossmatch POC Glucose 07/22/18 07/21/18 06:51 23:11 POC Glucose 143 H 158 H Assessment/Plan All Active Problems (Last Reviewed 07/21/18 @ 12:10 by Saba Carlos) Dyspnea on exertion (Acute) Acute blood loss anemia (Acute) Upper GI bleed (Acute) Epistaxis (Acute) Elevated troponin (Acute) Iron deficiency anemia (Acute) Anemia (Acute) 72-year-old female with anemia, positive fecal occult blood, one episode of melena 1. Last month patient had undergone EGD and colonoscopy and it is no obvious source of bleeding seen. Per patient Dr. Francis tried to get a capsule endoscopy insurance only cover one location. It EGD does not show anything unsure of the colonoscopy was just done last month but also show anything that would recommend likely the capsule endoscopy. I have discussed the above with the patient. I have offered the patient EGD for evaluation. I have explained the risks/benefits of the procedure and described the procedure. I have discussed the risks with the patient, including but not limited to: infection, bleeding, perforation of the GI tract requiring emergency surgery, inability to complete the procedure, injury to any internal organs, complications of anesthesia, etc. - the patient understands and agrees to proceed. I have answered all the patient's questions to the patient's satisfaction and the patient has no further questions. Gloria Wallace M.D. Pager: [phone] [facility] [address] [place] [address], [facility], [address] [place] [address] Office: [phone] Code Visit Inpatient E&M: 33535 Init Hosp L1
--- NOTE | 2018-07-22 08:05 | CON.PCM_ITS ---
Reason for Consult Date of Consultation: 07/22/18 History of Present Illness: The patient is a 72 year old F admitted due to fatigue as well as anemia. Patient was seen at [facility] office where her hemoglobin was noted to be low at 6.9 she was told to go to the ER. Patient states that yesterday she did have one loose darker stool that may be almost black. Patient denies having these previously she was states she is previously been having dark brown stools the patient is on iron. Patient's fecal occult blood test was positive. Patient states she had a vomit this morning that was dark brown and solid. Patient underwent EGD and colonoscopy beginning of last month which did not show any source of bleeding at that time. Patient's hemoglobin was 8.1 she last hospitalization last month went up to the highest at 8.7 at the beginning of June and then slowly trended down to 8.5 on 07/01/18 last check was 6.8 prior to admit. Pt denies abd pain/n/v. Patient is trying to have valve replacement done at [facility] however she is worried that her hemoglobin is not stable she will not be able to get that done. 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) Medical History: Medical History (Last Reviewed 07/21/18 @ 12:10 by Saba Carlos) Obesity (Chronic) E66.9 Hypertension (Chronic) I10 Persistent atrial fibrillation (Chronic) I48.1 Rheumatic mitral stenosis with insufficiency (Chronic) I05.2 Rheumatic aortic stenosis with insufficiency (Chronic) I06.2 cataract removal left eye DVT of lower extremity, bilateral I82.403 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, liver and left eye Hypothyroidism E03.9 Osteoarthritis M19.90 Rheumatic fever I00 Sleep apnea G47.30 History of hysterectomy Z90.710 Allergies Penicillins Allergy (Severe, Verified 07/21/18 13:00) Hives swelling of tongue and throat codeine Adverse Reaction (Severe, Verified 07/21/18 13:00) HALLUCINATIONS morphine Adverse Reaction (Severe, Verified 07/21/18 13:00) HALLUCINATIONS Ofoxluf-Vfk-Lnq Reductase Inhibitor Adverse Reaction (Severe, Verified 07/21/18 13:00) Other leg cramps Home Medications: Ambulatory Orders Medication Instructions Recorded Vit C/E/Zn/Coppr/Lutein/Zeaxan 1 ea PO BID 10/24/16 [Preservision Areds 2 Softgel] albuterol sulfate HFA 90 2 puff INHALATION Q6H PRN PRN 06/11/17 mcg/actuation aerosol inhaler fluticasone 250 mcg-salmeterol 50 1 inh INHALATION Q12H 06/11/17 mcg/dose blistr powdr for inhalation levothyroxine 50 mcg tablet 50 mcg PO DAILY tab 06/11/17 metformin ER 750 mg 750 mg PO DAILY 30 Days #30 06/11/17 tablet,extended release 24 hr ferrous sulfate 325 mg (65 mg 325 mg PO BID tab 05/14/18 iron) tablet,delayed release Cetirizine HCl [Zyrtec] 10 mg PO DAILY 06/01/18 Cholecalciferol (VIT D3) [Vitamin 1,000 unit PO DAILY 06/01/18 D3] Fenofibrate Nanocrystallized 145 mg PO DAILY 06/01/18 [Tricor] Losartan Potassium 100 mg PO DAILY 06/01/18 Multivitamin with Minerals 1 ea PO DAILY 06/01/18 [Multiple Vitamin] Aspirin [Aspir 81] 81 mg PO DAILY #0 06/04/18 Ascorbic Acid [Vitamin C] 1,000 mg PO DAILY 07/21/18 Furosemide 40 mg PO BID 07/21/18 Potassium Chloride [Klor-Con M20] 20 meq PO BID 07/21/18 Surgical History: Surgical History (Last Reviewed 07/21/18 @ 12:10 by Saba Carlos) Presence of cardiac pacemaker (Chronic) Onset Date: ~01/10/15 Z95.0 History of radiofrequency ablation procedure for cardiac arrhythmia (Chronic) Onset Date: ~01/10/15 Z98.890 AV Junction Ablation H/O mitral valve replacement (Chronic) Onset Date: ~04/26/09 Z95.2 H/O aortic valve replacement (Chronic) Onset Date: ~04/26/09 Z95.2 History of appendectomy Z90.49 History of tonsillectomy and adenoidectomy Z98.890 History of removal of cyst Z98.890 right breast Hx of cholecystectomy Z90.49 tracheostomy Onset Date: ~12/03/072007 Surgical History: - - Aortic and mitral valve replacement Psychiatric History: 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 psych hx 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 OR MANAGER History: 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 Denies: Abdominal Pain, Hematemesis, Hematochezia, Vomiting Genitourinary: Denies: Dysuria Neurological: Denies: Balance problems Psychiatric: Denies: Depression Hematologic/ Lymphatic: Reports: Anemia Patient Problems: Active and Suspected Problems (Last Reviewed 07/21/18 @ 12:10 by Saba Carlos) Iron deficiency anemia (Acute) Anemia (Acute) - Physical Exam General: Alert, Oriented x3, Cooperative, No apparent distress HEENT: Atraumatic Lungs: Normal air movement Abdomen: Soft, Non Tender, Non-Distended Extremities: No clubbing, No cyanosis, Edema - Bilateral extremities wrapped with Sanjay wraps Neurological: Cranial nerves II-XII grossly intact Psych/Mental Status: Normal Affect Vital Signs Temp Pulse Resp BP Pulse Ox 97.8 F 60 16 111/56 L 95 07/22/18 05:02 07/22/18 07:29 07/22/18 07:29 07/22/18 05:02 07/22/18 07:29 Oxygen Flow Rate (L/min) 1 Oxygen Delivery Method Room Air Weight: 223 lb Body Mass Index (BMI) 39.4 Intake and Output for Last 24 Hours 07/20/18 07/21/18 07/22/18 23:59 23:59 23:59 Intake Total 400 / 400 2500 / 2500 Output Total 800 / 800 Balance 400 / 400 1700 / 1700 Microbiology Past 72 Hours 07/22/18 05:30 Stool Occult Blood (RAMSES) - Final Stool Occult Blood Positive Laboratory Tests Past 24 Hrs 07/21/18 07/21/18 07/21/18 13:30 13:30 13:30 WBC 21.8 H RBC 2.25 L Hgb 6.9 L Hct 23.4 L MCV 104.0 H MCH 30.7 MCHC 29.5 L RDW 19.4 H RDW Differential 71.6 H Plt Count 540 H MPV 9.4 Immature Gran % (Auto) 1.300 H Neut % (Auto) 77.3 H Lymph % (Auto) 8.1 L [place] % (Auto) 12.0 H Eos % (Auto) 0.6 Baso % (Auto) 0.7 Absolute Neuts (auto) 16.9 H Absolute Lymphs (auto) 1.77 Total Counted Not Reportable Differential Comment COMMENT Diff Path Review May foll Platelet Estimate Plt Morphology Comment Polychromasia Hypochromasia Anisocytosis Microcytosis PT 15.8 H INR 1.3 APTT 24.6 Sodium 136 Potassium 3.8 Chloride 101 Carbon Dioxide 27.0 Anion Gap 8 BUN 35 H Creatinine 1.12 H Estim Creat Clear Calc 37.01 Est GFR (MDRD) Af Amer 61 Est GFR (MDRD) Non-Af 51 L BUN/Creatinine Ratio 31.2 H Glucose 142 H Calcium 8.9 Phosphorus Magnesium Total Bilirubin 0.60 AST 37 ALT 16 Alkaline Phosphatase 75 Total Protein 6.9 Albumin 3.5 Globulin 3.4 Albumin/Globulin Ratio 1.0 Urine Color Urine Clarity Urine pH Ur Specific [place] Urine Protein Urine Glucose (UA) Urine Ketones Urine Occult Blood Urine Nitrite Urine Bilirubin Urine Urobilinogen Ur Leukocyte Esterase Urine RBC Urine WBC Ur Squamous Epith Cells Urine Bacteria Urine Mucus Blood Type Antibody Screen Crossmatch 07/21/18 07/21/18 07/21/18 13:30 20:15 20:58 WBC RBC Hgb Hct MCV MCH MCHC RDW RDW Differential Plt Count MPV Immature Gran % (Auto) Neut % (Auto) Lymph % (Auto) [place] % (Auto) Eos % (Auto) Baso % (Auto) Absolute Neuts (auto) Absolute Lymphs (auto) Total Counted Differential Comment Diff Path Review Platelet Estimate Plt Morphology Comment Polychromasia Hypochromasia Anisocytosis Microcytosis PT INR APTT Sodium Potassium Chloride Carbon Dioxide Anion Gap BUN Creatinine Estim Creat Clear Calc Est GFR (MDRD) Af Amer Est GFR (MDRD) Non-Af BUN/Creatinine Ratio Glucose Calcium Phosphorus 3.5 Magnesium 1.9 Total Bilirubin AST ALT Alkaline Phosphatase Total Protein Albumin Globulin Albumin/Globulin Ratio Urine Color Yellow Urine Clarity Clear Urine pH 5.0 Ur Specific [place] 1.020 Urine Protein Negative Urine Glucose (UA) Normal Urine Ketones Negative Urine Occult Blood Negative Urine Nitrite Negative Urine Bilirubin Negative Urine Urobilinogen Normal Ur Leukocyte Esterase 100 H Urine RBC 0 SEEN Urine WBC 0-5 SEEN Ur Squamous Epith Cells 0-5 SEEN Urine Bacteria 0 SEEN Urine Mucus 0 SEEN Blood Type O NEGATIVE Antibody Screen NEGATIVE Crossmatch See Detail 07/22/18 07/22/18 07/22/18 02:52 05:52 05:52 WBC 17.0 H RBC 2.55 L Hgb 7.6 L 7.8 L Hct 24.8 L 25.0 L MCV 98.0 MCH 30.6 MCHC 31.2 L RDW 21.0 H RDW Differential 72.1 H Plt Count 418 MPV 9.4 Immature Gran % (Auto) 1.200 H Neut % (Auto) 76.4 H Lymph % (Auto) 10.3 L [place] % (Auto) 10.6 H Eos % (Auto) 1.0 Baso % (Auto) 0.5 Absolute Neuts (auto) 13.0 H Absolute Lymphs (auto) 1.76 Total Counted Not Reportable Differential Comment SCAN Diff Path Review May foll Platelet Estimate ADEQUATE Plt Morphology Comment LARGE Polychromasia 1+ Hypochromasia 1+ Anisocytosis 2+ Microcytosis 1+ PT INR APTT Sodium 138 Potassium 3.8 Chloride 106 Carbon Dioxide 22.0 Anion Gap 10 BUN 38 H Creatinine 1.01 Estim Creat Clear Calc 41.04 Est GFR (MDRD) Af Amer 69 Est GFR (MDRD) Non-Af 57 L BUN/Creatinine Ratio 37.6 H Glucose 163 H Calcium 8.2 L Phosphorus Magnesium Total Bilirubin AST ALT Alkaline Phosphatase Total Protein Albumin Globulin Albumin/Globulin Ratio Urine Color Urine Clarity Urine pH Ur Specific [place] Urine Protein Urine Glucose (UA) Urine Ketones Urine Occult Blood Urine Nitrite Urine Bilirubin Urine Urobilinogen Ur Leukocyte Esterase Urine RBC Urine WBC Ur Squamous Epith Cells Urine Bacteria Urine Mucus Blood Type Antibody Screen Crossmatch POC Glucose 07/22/18 07/21/18 06:51 23:11 POC Glucose 143 H 158 H Assessment/Plan All Active Problems (Last Reviewed 07/21/18 @ 12:10 by Saba Carlos) Dyspnea on exertion (Acute) Acute blood loss anemia (Acute) Upper GI bleed (Acute) Epistaxis (Acute) Elevated troponin (Acute) Iron deficiency anemia (Acute) Anemia (Acute) 72-year-old female with anemia, positive fecal occult blood, one episode of melena 1. Last month patient had undergone EGD and colonoscopy and it is no obvious source of bleeding seen. Per patient Dr. Francis tried to get a capsule en doscopy insurance only cover one location. It EGD does not show anything unsure of the colonoscopy was just done last month but also show anything that would recommend likely the capsule endoscopy. I have discussed the above with the patient. I have offered the patient EGD for evaluation. I have explained the risks/benefits of the procedure and described the procedure. I have discussed the risks with the patient, including but not limited to: infection, bleeding, perforation of the GI tract requiring emergency surgery, inability to complete the procedure, injury to any internal o rgans, complications of anesthesia, etc. - the patient understands and agrees to proceed. I have answered all the patient's questions to the patient's satisfaction and the patient has no further questions. Gloria Wallace M.D. Pager: [phone] [facility] [address] [place] [address], [facility], [address] [place] [address] Office: [phone] Code Visit Inpatient E&M: 08199 Init Hosp L1
[2018-07-22] MEDS: Ferrous Sulfate 325 MG Tablet PO ×2 (08:20→17:46)
[2018-07-22] MEDS: Multivitamins,Ther W-Minerals Tablet 1 TABLET PO (08:21)
[2018-07-22] MEDS: Loratadine 10 MG Tablet PO (08:21)
--- NOTE | 2018-07-22 10:51 | EKG12_ITS ---
Test Reason : PRE OP Blood Pressure : / mmHG Vent. Rate : 060 BPM Atrial Rate : 394 BPM P-R Int : 000 ms QRS Dur : 122 ms QT Int : 490 ms P-R-T Axes : 000 -81 116 degrees QTc Int : 490 ms Ventricular-paced rhythm Abnormal ECG Confirmed by QUINTON VAUGHN, SHEKHAR ([id number]), international editorial producer CHAPIS WALLIS ([id number]) on 07/27/2018 11:39:59 AM Referred By: Geneva Bailey Confirmed By:SHEKHAR ALCANTARA MD
[2018-07-22 11:31] LABS: Hemoglobin A1c 5.1 % (4.2-6.3); Thyroid Stim Hormone (TSH) 3.03 uIU/mL (0.358-3.74)
[2018-07-22 12:01] LABS: Bedside Glucose 126 mg/dL (70-110)
--- NOTE | 2018-07-22 12:26 | NURSING ---
report called to jorge laboy in [facility]
[2018-07-22 12:37] LABS: Pathologist Review Reviewed
[2018-07-22 12:40] LABS: Pathologist Review Reviewed
--- NOTE | 2018-07-22 12:54 | CON.PCM_ITS ---
Consult Referring Physician: Dr. Banuelos. Consult Results: Acute Anemia R/O GI bleed. Subjective Date of Service:: 07/22/18 Chief Complaint: ANEMIA History of Present Illness: 72y.o.woman with history of chronic Anemia, Valvular heart disease, was admitted with SOB and low HGB. She received 2 Units on PRBC and Iron infusion. She is due to go for Endoscopy. 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) Past Medical/Surgical History: Past Medical History - Most Recent Inpatient Visit Past Medical History Start: 07/21/18 18:04 Text: Status: Complete Freq: ONCE Protocol: Document 07/21/18 19:24 JJL (Rec: 07/21/18 19:29 J [id number]) BMI Required to complete PMH What is Patient's BMI 39.5 Past Medical History Unable History Recalled No Query Text:Pt Unable/Family Not Present Neurologic Medical History Hx Stroke/TIA No Hx Dementia/Alzheimer's No Hx Parkinson's Disease No Hx Seizures No Hx Multiple Sclerosis No Hx Migraines Yes: in the past Cardiac Medical History VTE Present on Admission No Hx of Deep Vein Thrombosis/VTE/PE Yes: legs Hx Hypertension Yes Hx Chest Pain/Angina No Hx Heart Attack No Hx Cardiac Surgery/Stents/Etc. Yes: aortic and mitral valves replaced ([facility]) Hx Heart Failure Yes Hx Pacemaker/AICD Yes: pacemaker Hx Irregular Heartbeat and/or Afib Yes: a.fib s/p ablation Hx Anticoagulant Therapy Yes: baby aspirin Query Text:(Coumadin, Aspirin, Plavix, Xarelto, etc.) Hx Pain in Legs when Walking/Leg Cramps Yes Respiratory Medical History Hx COPD Yes Hx Emphysema Yes Hx Smoking Yes Smoking Status Former smoker Tobacco Use Non-smoker Years Smoking 40 Packs Smoked per Day 2 Hx Smoking Cessation Date 2007 Hx Smoking Cessation Counseling No Hx Smoking Exposure No Hx Tobacco Use in last 12 months No Hx of Pipe Smoking No Hx of Cigar Smoking No Hx Sleep Apnea Yes CPAP Yes: machine w/ pt BIPAP No STOP Results Positive GI Medical History Hx Ulcer No Hx Hepatitis No Hx Cirrhosis No Hx GI Bleed No Hx Unplanned Weight Loss No Genitourinary Medical History Indwelling Catheter in Place on Arrival/ No Admission Hx Renal Disease No Hx Dialysis No Musculoskeletal History Hx Arthritis Yes Hx Rheumatoid Arthritis No Endocrine Medical History Hx Diabetes Yes: on med Hx Thyroid Disease Yes Hematologic Medical History Hx of Blood Transfusion Yes Hx of Transfusion in last 3 Months Yes Date of Last Transfusion (if within last MAY 2018 3 months) Ever experience any problems with No transfusion(s)? Hx of Preganancy in last 3 Months No Nurse Filling Out Transfusion & JLAMP Questions: Date: 07/21/18 Time: 19:27 Psycho/Social Medical History Hx Depression No Hx Anxiety No Hx Behavior Disorder No Hx Alcohol Use No Hx Substance Use No Other Medical History Hx Blood Disorders No Hx Anemia Yes Hx Cancer Yes: SKIN Hx Drug Resistant Organism No Wound/Pressure Injury Present on Arrival No /Admission Query Text:If yes, chart assessment in Shift/Clinical Findings Central Line/PICC/VAD Present on Arrival No /Admission Antibiotics within last 7 days? 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) cataract removal left eye (Acute) DVT of lower extremity, bilateral (Chronic) Hemangioma (Chronic) Hypothyroidism (Chronic) Osteoarthritis (Chronic) Rheumatic fever (Chronic) Sleep apnea (Chronic) History of hysterectomy (Resolved) Past Surgical History (Last Reviewed 07/21/18 @ 12:10 by Saba Carlos) Presence of cardiac pacemaker (Chronic ~01/10/15) History of radiofrequency ablation procedure for cardiac arrhythmia (Chronic ~01/10/15) H/O mitral valve replacement (Chronic ~04/26/09) H/O aortic valve replacement (Chronic ~04/26/09) History of appendectomy (Chronic) History of tonsillectomy and adenoidectomy (Chronic) History of removal of cyst (Resolved) Hx of cholecystectomy (Resolved) tracheostomy (Resolved ~12/03/07) Maternal Family History: Family History (Last Reviewed 07/21/18 @ 12:10 by Saba Carlos) Brother Kidney disease Father Heart disease Prostate cancer Grandmother Breast cancer Family History: - - anemia - Social History Lives: Alone Smoking Status: Former smoker Tobacco Use: Non-smoker Alcohol: None Drugs: None Allergies/Adverse Reactions: Allergy/AdvReac Type Severity Reaction Status Date / Time Penicillins Allergy Severe Hives Verified 07/21/18 13:00 codeine AdvReac Severe HALLUCINATI Verified 07/21/18 13:00 ONS morphine AdvReac Severe HALLUCINATI Verified 07/21/18 13:00 ONS Zskthnx-Nhj-Ide Reductase AdvReac Severe Other Verified 07/21/18 13:00 Inhibitor Review of Systems Constitutional:: Reports: Weakness, Fatigue. Denies: Fever, Sweats Cardiovascular:: Reports: Palpitations Respiratory: Reports: Shortness of breath at rest Gastrointestinal:: Reports: Melena - Passed black stool yesterdery. Denies: Abdominal pain, Nausea, Vomiting, Diarrhea, Constipation, Hematochezia Genitourinary: Denies: Dysuria, Hematuria, 15, Flank pain Musculoskeletal:: Denies: Back pain, Myalgia, Arthralgia Neurological:: Denies: Headache, Dizziness, Visual changes, Tinnitus, Hearing loss Psychiatric: Denies: Anxiety, Depression, Homicidal Ideations, Suicidal Ideations Vital Signs Height 5 ft 3 in Weight: 101.151 kg Weight in Pounds 223.0 lbs Pulse Ox 96 Temperature 98.0 F Pulse Rate 62 Respiratory Rate 18 Blood Pressure 112/46 Blood Pressure Position Sitting - Physical Exam General: Alert, Oriented x3, No apparent distress HEENT: Atraumatic, PERRLA, EOMI, Normocephalic Oropharynx:: Dry mucosa Neck:: Supple, Trachea midline. Negative for: JVD, bilateral Cardiac:: Regular rate, Regular rhythm, Normal S1, Normal S2, Murmur Lungs: Clear to auscultation, Excusion symmetrical. Negative for: Rhonchi, Wheezes Abdomen:: Bowel sounds x 4, Soft, Non-tender, Non-distended. Negative for: Hepatosplenomegaly Extremities:: Negative for: Cyanosis, Edema Neurological: Neuro grossly intact Skin:: Negative for: Lesions, Rash, Petechiae, Ecchymosis Psychiatric:: Appropriate affect, Euthymic Lymphatics:: Negative for: Cervical lymphadenopathy, Supraclavicular lymphadenopathy, Axillary lymphadenopathy Laboratory Data: Microbiology 07/22/18 05:30 Stool Occult Blood (RAMSES) - Final Stool Occult Blood Positive Laboratory Tests 07/22/18 07/22/18 07/22/18 Range/Units 11:25 06:51 05:52 WBC (4.4-11.0) K/mm3 RBC (4.2-5.4) M/mm3 Hgb (12.0-15.0) g/dl Hct (37-47) % MCV (81-99) fL MCH (27.0-32.0) pg MCHC (32-36) g/gl RDW (11.6-14.6) % RDW Differential (35.1-43.9) fl Plt Count (150-450) K/mm3 MPV (6.2-12.0) fl Immature Gran % (Auto) (0.0-0.9) % Neut % (Auto) (47-70) % Lymph % (Auto) (19-41) % Gray % (Auto) (0-10) % Eos % (Auto) (0-5) % Baso % (Auto) (0-1) % Absolute Neuts (auto) (2.0-7.7) X10^3/uL Absolute Lymphs (auto) (0.83-4.51) X10^3/ul Total Counted Differential Comment Diff Path Review Platelet Estimate (ADEQ) Plt Morphology Comment Polychromasia Hypochromasia Anisocytosis Microcytosis PT (11.7-14.9) SECONDS INR APTT (24.1-36.2) Seconds Sodium (136-145) mmol/L Potassium (3.5-5.1) mmol/L Chloride (98-107) mmol/L Carbon Dioxide (21.0-32.0) mmol/L Anion Gap (5-15) BUN (7-18) mg/dL Creatinine (0.55-1.02) mg/dL Estim Creat Clear Calc ml/min Est GFR (MDRD) Af Amer (>60) mL/min Est GFR (MDRD) Non-Af (>60) mL/min BUN/Creatinine Ratio (10-20) RATIO Glucose (74-106) mg/dL Hemoglobin A1c (4.2-6.3) % Calcium (8.5-10.1) mg/dL Phosphorus (2.5-4.9) mg/dL Magnesium (1.6-2.6) mg/dL Total Bilirubin (0.20-1.00) mg/dL AST (15-37) U/L ALT (13-56) U/L Alkaline Phosphatase (45-117) U/L Total Protein (6.4-8.2) g/dL Albumin (3.2-5.0) g/dL Globulin (2.2-4.2) g/dL Albumin/Globulin Ratio (0.9-2.4) RATIO TSH 3.03 (0.358-3.74) uIU/mL Urine Color (Yellow) Urine Clarity (Clear) Urine pH (5.0 - 8.0) Ur Specific [place] (1.002-1.030) Urine Protein (Negative) mg/dl Urine Glucose (UA) (Normal) mg/dl Urine Ketones (Negative) mg/dl Urine Occult Blood (Negative) /ul Urine Nitrite (Negative) Urine Bilirubin (Negative) mg/dL Urine Urobilinogen (Normal) mg/dl Ur Leukocyte Esterase (Negative) /ul Urine RBC (0-5) /hpf Urine WBC (0-5) /hpf Ur Squamous Epith Cells (5-10) /hpf Urine Bacteria (None Seen) /hpf Urine Mucus (<or=2+) /hpf POC Glucose 126 H 143 H (70-110) mg/dL Blood Type Antibody Screen Crossmatch 07/22/18 07/22/18 07/22/18 Range/Units 05:52 05:52 05:52 WBC 17.0 H (4.4-11.0) K/mm3 RBC 2.55 L (4.2-5.4) M/mm3 Hgb 7.8 L (12.0-15.0) g/dl Hct 25.0 L (37-47) % MCV 98.0 (81-99) fL MCH 30.6 (27.0-32.0) pg MCHC 31.2 L (32-36) g/gl RDW 21.0 H (11.6-14.6) % RDW Differential 72.1 H (35.1-43.9) fl Plt Count 418 (150-450) K/mm3 MPV 9.4 (6.2-12.0) fl Immature Gran % (Auto) 1.200 H (0.0-0.9) % Neut % (Auto) 76.4 H (47-70) % Lymph % (Auto) 10.3 L (19-41) % Gray % (Auto) 10.6 H (0-10) % Eos % (Auto) 1.0 (0-5) % Baso % (Auto) 0.5 (0-1) % Absolute Neuts (auto) 13.0 H (2.0-7.7) X10^3/uL Absolute Lymphs (auto) 1.76 (0.83-4.51) X10^3/ul Total Counted Not Reportable Differential Comment SCAN Diff Path Review Reviewed Platelet Estimate ADEQUATE (ADEQ) Plt Morphology Comment LARGE Polychromasia 1+ Hypochromasia 1+ Anisocytosis 2+ Microcytosis 1+ PT (11.7-14.9) SECONDS INR APTT (24.1-36.2) Seconds Sodium 138 (136-145) mmol/L Potassium 3.8 (3.5-5.1) mmol/L Chloride 106 (98-107) mmol/L Carbon Dioxide 22.0 (21.0-32.0) mmol/L Anion Gap 10 (5-15) BUN 38 H (7-18) mg/dL Creatinine 1.01 (0.55-1.02) mg/dL Estim Creat Clear Calc 41.04 ml/min Est GFR (MDRD) Af Amer 69 (>60) mL/min Est GFR (MDRD) Non-Af 57 L (>60) mL/min BUN/Creatinine Ratio 37.6 H (10-20) RATIO Glucose 163 H (74-106) mg/dL Hemoglobin A1c 5.1 (4.2-6.3) % Calcium 8.2 L (8.5-10.1) mg/dL Phosphorus (2.5-4.9) mg/dL Magnesium (1.6-2.6) mg/dL Total Bilirubin (0.20-1.00) mg/dL AST (15-37) U/L ALT (13-56) U/L Alkaline Phosphatase (45-117) U/L Total Protein (6.4-8.2) g/dL Albumin (3.2-5.0) g/dL Globulin (2.2-4.2) g/dL Albumin/Globulin Ratio (0.9-2.4) RATIO TSH (0.358-3.74) uIU/mL Urine Color (Yellow) Urine Clarity (Clear) Urine pH (5.0 - 8.0) Ur Specific [place] (1.002-1.030) Urine Protein (Negative) mg/dl Urine Glucose (UA) (Normal) mg/dl Urine Ketones (Negative) mg/dl Urine Occult Blood (Negative) /ul Urine Nitrite (Negative) Urine Bilirubin (Negative) mg/dL Urine Urobilinogen (Normal) mg/dl Ur Leukocyte Esterase (Negative) /ul Urine RBC (0-5) /hpf Urine WBC (0-5) /hpf Ur Squamous Epith Cells (5-10) /hpf Urine Bacteria (None Seen) /hpf Urine Mucus (<or=2+) /hpf POC Glucose (70-110) mg/dL Blood Type Antibody Screen Crossmatch 07/22/18 07/21/18 07/21/18 Range/Units 02:52 23:11 20:58 WBC (4.4-11.0) K/mm3 RBC (4.2-5.4) M/mm3 Hgb 7.6 L (12.0-15.0) g/dl Hct 24.8 L (37-47) % MCV (81-99) fL MCH (27.0-32.0) pg MCHC (32-36) g/gl RDW (11.6-14.6) % RDW Differential (35.1-43.9) fl Plt Count (150-450) K/mm3 MPV (6.2-12.0) fl Immature Gran % (Auto) (0.0-0.9) % Neut % (Auto) (47-70) % Lymph % (Auto) (19-41) % Gray % (Auto) (0-10) % Eos % (Auto) (0-5) % Baso % (Auto) (0-1) % Absolute Neuts (auto) (2.0-7.7) X10^3/uL Absolute Lymphs (auto) (0.83-4.51) X10^3/ul Total Counted Differential Comment Diff Path Review Platelet Estimate (ADEQ) Plt Morphology Comment Polychromasia Hypochromasia Anisocytosis Microcytosis PT (11.7-14.9) SECONDS INR APTT (24.1-36.2) Seconds Sodium (136-145) mmol/L Potassium (3.5-5.1) mmol/L Chloride (98-107) mmol/L Carbon Dioxide (21.0-32.0) mmol/L Anion Gap (5-15) BUN (7-18) mg/dL Creatinine (0.55-1.02) mg/dL Estim Creat Clear Calc ml/min Est GFR (MDRD) Af Amer (>60) mL/min Est GFR (MDRD) Non-Af (>60) mL/min BUN/Creatinine Ratio (10-20) RATIO Glucose (74-106) mg/dL Hemoglobin A1c (4.2-6.3) % Calcium (8.5-10.1) mg/dL Phosphorus 3.5 (2.5-4.9) mg/dL Magnesium 1.9 (1.6-2.6) mg/dL Total Bilirubin (0.20-1.00) mg/dL AST (15-37) U/L ALT (13-56) U/L Alkaline Phosphatase (45-117) U/L Total Protein (6.4-8.2) g/dL Albumin (3.2-5.0) g/dL Globulin (2.2-4.2) g/dL Albumin/Globulin Ratio (0.9-2.4) RATIO TSH (0.358-3.74) uIU/mL Urine Color (Yellow) Urine Clarity (Clear) Urine pH (5.0 - 8.0) Ur Specific [place] (1.002-1.030) Urine Protein (Negative) mg/dl Urine Glucose (UA) (Normal) mg/dl Urine Ketones (Negative) mg/dl Urine Occult Blood (Negative) /ul Urine Nitrite (Negative) Urine Bilirubin (Negative) mg/dL Urine Urobilinogen (Normal) mg/dl Ur Leukocyte Esterase (Negative) /ul Urine RBC (0-5) /hpf Urine WBC (0-5) /hpf Ur Squamous Epith Cells (5-10) /hpf Urine Bacteria (None Seen) /hpf Urine Mucus (<or=2+) /hpf POC Glucose 158 H (70-110) mg/dL Blood Type Antibody Screen Crossmatch 07/21/18 07/21/18 07/21/18 Range/Units 20:15 13:30 13:30 WBC (4.4-11.0) K/mm3 RBC (4.2-5.4) M/mm3 Hgb (12.0-15.0) g/dl Hct (37-47) % MCV (81-99) fL MCH (27.0-32.0) pg MCHC (32-36) g/gl RDW (11.6-14.6) % RDW Differential (35.1-43.9) fl Plt Count (150-450) K/mm3 MPV (6.2-12.0) fl Immature Gran % (Auto) (0.0-0.9) % Neut % (Auto) (47-70) % Lymph % (Auto) (19-41) % Gray % (Auto) (0-10) % Eos % (Auto) (0-5) % Baso % (Auto) (0-1) % Absolute Neuts (auto) (2.0-7.7) X10^3/uL Absolute Lymphs (auto) (0.83-4.51) X10^3/ul Total Counted Differential Comment Diff Path Review Platelet Estimate (ADEQ) Plt Morphology Comment Polychromasia Hypochromasia Anisocytosis Microcytosis PT (11.7-14.9) SECONDS INR APTT (24.1-36.2) Seconds Sodium 136 (136-145) mmol/L Potassium 3.8 (3.5-5.1) mmol/L Chloride 101 (98-107) mmol/L Carbon Dioxide 27.0 (21.0-32.0) mmol/L Anion Gap 8 (5-15) BUN 35 H (7-18) mg/dL Creatinine 1.12 H (0.55-1.02) mg/dL Estim Creat Clear Calc 37.01 ml/min Est GFR (MDRD) Af Amer 61 (>60) mL/min Est GFR (MDRD) Non-Af 51 L (>60) mL/min BUN/Creatinine Ratio 31.2 H (10-20) RATIO Glucose 142 H (74-106) mg/dL Hemoglobin A1c (4.2-6.3) % Calcium 8.9 (8.5-10.1) mg/dL Phosphorus (2.5-4.9) mg/dL Magnesium (1.6-2.6) mg/dL Total Bilirubin 0.60 (0.20-1.00) mg/dL AST 37 (15-37) U/L ALT 16 (13-56) U/L Alkaline Phosphatase 75 (45-117) U/L Total Protein 6.9 (6.4-8.2) g/dL Albumin 3.5 (3.2-5.0) g/dL Globulin 3.4 (2.2-4.2) g/dL Albumin/Globulin Ratio 1.0 (0.9-2.4) RATIO TSH (0.358-3.74) uIU/mL Urine Color Yellow (Yellow) Urine Clarity Clear (Clear) Urine pH 5.0 (5.0 - 8.0) Ur Specific [place] 1.020 (1.002-1.030) Urine Protein Negative (Negative) mg/dl Urine Glucose (UA) Normal (Normal) mg/dl Urine Ketones Negative (Negative) mg/dl Urine Occult Blood Negative (Negative) /ul Urine Nitrite Negative (Negative) Urine Bilirubin Negative (Negative) mg/dL Urine Urobilinogen Normal (Normal) mg/dl Ur Leukocyte Esterase 100 H (Negative) /ul Urine RBC 0 SEEN (0-5) /hpf Urine WBC 0-5 SEEN (0-5) /hpf Ur Squamous Epith Cells 0-5 SEEN (5-10) /hpf Urine Bacteria 0 SEEN (None Seen) /hpf Urine Mucus 0 SEEN (<or=2+) /hpf POC Glucose (70-110) mg/dL Blood Type O NEGATIVE Antibody Screen NEGATIVE Crossmatch See Detail 07/21/18 07/21/18 Range/Units 13:30 13:30 WBC 21.8 H (4.4-11.0) K/mm3 RBC 2.25 L (4.2-5.4) M/mm3 Hgb 6.9 L (12.0-15.0) g/dl Hct 23.4 L (37-47) % MCV 104.0 H (81-99) fL MCH 30.7 (27.0-32.0) pg MCHC 29.5 L (32-36) g/gl RDW 19.4 H (11.6-14.6) % RDW Differential 71.6 H (35.1-43.9) fl Plt Count 540 H (150-450) K/mm3 MPV 9.4 (6.2-12.0) fl Immature Gran % (Auto) 1.300 H (0.0-0.9) % Neut % (Auto) 77.3 H (47-70) % Lymph % (Auto) 8.1 L (19-41) % Gray % (Auto) 12.0 H (0-10) % Eos % (Auto) 0.6 (0-5) % Baso % (Auto) 0.7 (0-1) % Absolute Neuts (auto) 16.9 H (2.0-7.7) X10^3/uL Absolute Lymphs (auto) 1.77 (0.83-4.51) X10^3/ul Total Counted Not Reportable Differential Comment COMMENT Diff Path Review Reviewed Platelet Estimate (ADEQ) Plt Morphology Comment Polychromasia Hypochromasia Anisocytosis Microcytosis PT 15.8 H (11.7-14.9) SECONDS INR 1.3 APTT 24.6 (24.1-36.2) Seconds Sodium (136-145) mmol/L Potassium (3.5-5.1) mmol/L Chloride (98-107) mmol/L Carbon Dioxide (21.0-32.0) mmol/L Anion Gap (5-15) BUN (7-18) mg/dL Creatinine (0.55-1.02) mg/dL Estim Creat Clear Calc ml/min Est GFR (MDRD) Af Amer (>60) mL/min Est GFR (MDRD) Non-Af (>60) mL/min BUN/Creatinine Ratio (10-20) RATIO Glucose (74-106) mg/dL Hemoglobin A1c (4.2-6.3) % Calcium (8.5-10.1) mg/dL Phosphorus (2.5-4.9) mg/dL Magnesium (1.6-2.6) mg/dL Total Bilirubin (0.20-1.00) mg/dL AST (15-37) U/L ALT (13-56) U/L Alkaline Phosphatase (45-117) U/L Total Protein (6.4-8.2) g/dL Albumin (3.2-5.0) g/dL Globulin (2.2-4.2) g/dL Albumin/Globulin Ratio (0.9-2.4) RATIO TSH (0.358-3.74) uIU/mL Urine Color (Yellow) Urine Clarity (Clear) Urine pH (5.0 - 8.0) Ur Specific [place] (1.002-1.030) Urine Protein (Negative) mg/dl Urine Glucose (UA) (Normal) mg/dl Urine Ketones (Negative) mg/dl Urine Occult Blood (Negative) /ul Urine Nitrite (Negative) Urine Bilirubin (Negative) mg/dL Urine Urobilinogen (Normal) mg/dl Ur Leukocyte Esterase (Negative) /ul Urine RBC (0-5) /hpf Urine WBC (0-5) /hpf Ur Squamous Epith Cells (5-10) /hpf Urine Bacteria (None Seen) /hpf Urine Mucus (<or=2+) /hpf POC Glucose (70-110) mg/dL Blood Type Antibody Screen Crossmatch Diagnostic Data: Diagnostic Data Chest X-Ray 07/21/18 19:07 IMPRESSION: 1. Cardiomegaly with cardiac pacemaker and evidence of median sternotomy. 2. No acute pulmonary disease. There is resolution of the interstitial prominence seen on the prior examination. Electronically Signed: Wojciech Hassan DO at 20:47 EDT Tel [phone], Service support , Assessment and Plan Acute on chronic Anemia, R/O GI bleed. Suggestion is to proceed GI endoscopy. Do supportive RBC transfusion as needed. If endoscopy is negative, can consider Bleeding scan. Will not follow in the hospital. Call if new problems arise. She should follow up in [facility] after discharge. Thanks. Medications: Prescriptions This Visit Medication Instructions Recorded Ascorbic Acid [Vitamin C] 1,000 mg PO DAILY 07/21/18 Potassium Chloride [Klor-Con M20] 20 meq PO BID 07/21/18 Medications Added to Medication List This Visit Category Date Time Status Cholecalciferol (VIT D3) [Vitamin D] Med 07/22/18 10:00 Active 1,000 unit PO DAILY Ferrous Sulfate Med 07/22/18 08:00 Active 325 mg PO BIDCM Furosemide [Lasix] Med 07/22/18 10:00 Active 40 mg PO BIDLX Levothyroxine [Synthroid] Med 07/22/18 06:00 Active 50 mcg PO DAILY@0600 Loratadine [Claritin] Med 07/22/18 10:00 Active 10 mg PO DAILY Losartan Potassium [Cozaar] Med 07/22/18 10:00 Active 100 mg PO DAILY Multivitamins,Ther W-Minerals [Multivitamin With Med 07/22/18 08:00 Active Minerals] 1 tablet PO DAILY@0800 Potassium Chloride [K-Dur] Med 07/22/18 08:00 Active 40 meq PO DAILYCM Primary Care Provider: Lalita Stroud MD Referring Provider: Geneva Bailey - Problem List (1) Anemia Status: Acute Qualifiers: Anemia type: unspecified type Qualified Code(s): D64.9 - Anemia, unspecified
--- NOTE | 2018-07-22 14:19 | OP.ENDO_ITS ---
07/22/2018 Lalita Stroud [address] [place] [address] Re : Upper GI endoscopy procedure for Geno Flores Dear Dr. Stroud This procedure was performed on June. My impressions and recommendations are as follows: Impressions : - Erythematous mucosa in the antrum. - Duodenal erosions with bleeding. Injected. - No specimens collected. Recommendations : - [facility]. - NPO, sips [Duration]. - Use sucralfate tablets 1 gram PO QID [duration]. - Continue present medications. My findings are described in the full procedure note, which is enclosed. If I can be of further assistance, please feel free to contact me at Doctor phone number(s): , Work: . Sincerely, MD Gloria Tracy MD 07/22/2018 2:18:31 PM This report has been signed electronically.
--- NOTE | 2018-07-22 14:35 | CHAPLAIN ---
patient and bed gone from room; left a calling card
[2018-07-22 14:45] LABS: Hemoglobin 7.4 g/dl (12.0-15.0)
--- NOTE | 2018-07-22 15:06 | NURSING ---
REPORT CALLED TO AIDA BOCANEGRA ON PCU.
--- NOTE | 2018-07-22 16:43 | PCM.PN.HOSP ---
Patient Problems: Active and Suspected Problems (Last Reviewed 07/21/18 @ 12:10 by Saba Carlos) Iron deficiency anemia (Acute) Anemia (Acute) Subjective: No fever or chills. Heart rate in 60s. Blood pressure dropped during the EGD procedure. 105/55. Blood pressure recovered with IV fluid. Discussed with surgeon. Patient is being transferred to PCU stepdown. 2 units of PRBC ordered. Vitals/I&O's: Vital Signs Temp Pulse Resp BP Pulse Ox 98.3 F 60 16 105/55 L 94 07/22/18 15:59 07/22/18 16:06 07/22/18 15:59 07/22/18 15:59 07/22/18 15:59 Oxygen Flow Rate (L/min) 2 Oxygen Delivery Method Room Air Weight: 223 lb Body Mass Index (BMI) 39.4 Intake and Output for Last 24 Hours 07/20/18 07/21/18 07/22/18 23:59 23:59 23:59 Intake Total 400 / 400 5157 / 5157 Output Total 1200 / 1200 Balance 400 / 400 3957 / 3957 General: Alert, Oriented x3, Cooperative HEENT: Atraumatic, PERRLA, EOMI, Normocephalic Neck: Supple, No JVD, Negative Carotid Bruits Lungs: Clear to auscultation, No rhonchi, No wheeze, No rales, Diminished - Air entry is diminished bilaterally. Cardiovascular: Regular rate, Regular Rhythm, Normal S1, Normal S2, Murmur - Systolic murmur present over aortic area over right sternal border and left lower sternal border. Pansystolic murmur over mitral area. Abdomen: Bowel Sounds Present, Soft, Non Tender, Non-Distended Extremities: Capillary Refill Less than 3 Seconds, Edema Skin: No rashes, No breakdown Musculoskeletal: No Tenderness to Palpation of Joints or Extremities, Arthritic Changes Lymphatic: No Cervical, Supraclavicular, or Inguinal Adenopathy Neurological: Cranial nerves II-XII grossly intact, Deep Tendon Reflexes 2+/4 and Symmetrical, Neuro grossly intact Psych/Mental Status: Normal Affect, Appropriate Microbiology Past 72 Hours 07/22/18 05:30 Stool Stool Occult Blood (RAMSES) - Final Occult Blood Positive Laboratory Results 07/21/18 13:30: Diff Path Review Reviewed 07/21/18 13:30: Blood Type O NEGATIVE, Antibody Screen NEGATIVE, Crossmatch See Detail 07/21/18 13:30: Crossmatch See Detail 07/21/18 20:15: Urine Color Yellow, Urine Clarity Clear, Urine pH 5.0, Ur Specific Aspen 1.020, Urine Protein Negative, Urine Glucose (UA) Normal, Urine Ketones Negative, Urine Occult Blood Negative, Urine Nitrite Negative, Urine Bilirubin Negative, Urine Urobilinogen Normal, Ur Leukocyte Esterase 100 H, Urine RBC 0 SEEN, Urine WBC 0-5 SEEN, Ur Squamous Epith Cells 0-5 SEEN, Urine Bacteria 0 SEEN, Urine Mucus 0 SEEN 07/21/18 20:58: Phosphorus 3.5, Magnesium 1.9 07/21/18 23:11: POC Glucose 158 H 07/22/18 02:52: Hgb 7.6 L, Hct 24.8 L 07/22/18 05:52: WBC 17.0 H, RBC 2.55 L, Hgb 7.8 L, Hct 25.0 L, MCV 98.0, MCH 30.6, MCHC 31.2 L, RDW 21.0 H, RDW Differential 72.1 H, Plt Count 418, MPV 9.4, Immature Gran % (Auto) 1.200 H, Neut % (Auto) 76.4 H, Lymph % (Auto) 10.3 L, [place] % (Auto) 10.6 H, Eos % (Auto) 1.0, Baso % (Auto) 0.5, Absolute Neuts (auto) 13.0 H, Absolute Lymphs (auto) 1.76, Total Counted Not Reportable, Differential Comment SCAN, Diff Path Review Reviewed, Platelet Estimate ADEQUATE, Plt Morphology Comment LARGE, Polychromasia 1+, Hypochromasia 1+, Anisocytosis 2+, Microcytosis 1+ 07/22/18 05:52: Sodium 138, Potassium 3.8, Chloride 106, Carbon Dioxide 22.0, Anion Gap 10, BUN 38 H, Creatinine 1.01, Estim Creat Clear Calc 41.04, Est GFR (MDRD) Af Amer 69, Est GFR (MDRD) Non-Af 57 L, BUN/Creatinine Ratio 37.6 H, Glucose 163 H, Calcium 8.2 L 07/22/18 05:52: Hemoglobin A1c 5.1 07/22/18 05:52: TSH 3.03 07/22/18 06:51: POC Glucose 143 H 07/22/18 11:25: POC Glucose 126 H 07/22/18 14:28: Hgb 7.4 L, Hct 25.0 L Current Medications Acetaminophen (Tylenol) 650 mg PO Q6H PRN PRN PRN Reason: Non-cardiac pain (mod-severe) Al Hydroxide/Mg Hydroxide (Mylanta Ii) 15 - 30 ml PO Q4H PRN PRN PRN Reason: INDIGESTION Albuterol Sulfate (Ventolin Aerosols) 2.5 mg INHALATION Q2H PRN PRN PRN Reason: dyspnea, wheezing Albuterol/Ipratropium (Duoneb) 3 ml INHALATION Q6HWA.RT [facility] Last Admin: 07/22/18 13:00 Dose: Not Given Cholecalciferol (Vitamin D) 1,000 unit PO DAILY [facility] Last Admin: 07/22/18 08:21 Dose: 1,000 unit Dextrose (D50w Syringe) 0 gm IV X1 PRN; Protocol PRN Reason: Hypoglycemia Ferrous Sulfate (Ferrous Sulfate) 325 mg PO BIDCM [facility] Last Admin: 07/22/18 08:20 Dose: 325 mg Furosemide (Lasix) 40 mg PO BIDLX [facility] Glucagon () 1 mg IM .X1 PRN PRN Reason: Hypoglycemia Hydralazine HCl (Apresoline Iv) 10 mg IV Q4H PRN PRN PRN Reason: SBP > 160 Sodium Chloride () 1,000 mls @ 100 mls/hr IV .Q10H [facility] Last Admin: 07/22/18 11:31 Dose: 100 mls/hr Pantoprazole Sodium 40 mg/ (Sodium Chloride) 110 mls @ 330 mls/hr IV Q12 [facility] Last Admin: 07/22/18 10:42 Dose: 330 mls/hr Insulin Human Lispro (Humalog Kwikpen (Bkc)) 0 unit SC ACHS [facility]; Protocol Last Admin: 07/22/18 11:30 Dose: Not Given Levothyroxine Sodium (Synthroid) 50 mcg PO DAILY@0600 [facility] Last Admin: 07/22/18 05:47 Dose: 50 mcg Loratadine (Claritin) 10 mg PO DAILY [facility] Last Admin: 07/22/18 08:21 Dose: 10 mg Losartan Potassium (Cozaar) 100 mg PO DAILY [facility] Last Admin: 07/22/18 10:41 Dose: Not Given Multivitamins/Minerals (Multivitamin With Minerals) 1 tablet PO DAILY@0800 [facility] Last Admin: 07/22/18 08:21 Dose: 1 tablet Ondansetron HCl (Zofran) 4 mg IV Q8H PRN PRN PRN Reason: NAUSEA/VOMITING Last Admin: 07/21/18 21:53 Dose: 4 mg Potassium Chloride (K-Dur) 40 meq PO DAILYCM [facility] Last Admin: 07/22/18 08:20 Dose: 40 meq Sodium Chloride () 5 - 15 ml IV UD PRN PRN Reason: SALINE FLUSH Sucralfate (Carafate) 1 gm PO 1HR_ACHS [facility] Medical Necessity - Tobacco Use Smoking Status: Former smoker Tobacco Use: Non-smoker Assessment/Plan All Active Problems (Last Reviewed 07/21/18 @ 12:10 by Saba Carlos) Dyspnea on exertion (Acute) Acute blood loss anemia (Acute) Upper GI bleed (Acute) Epistaxis (Acute) Elevated troponin (Acute) Iron deficiency anemia (Acute) Anemia (Acute) The patient is a 72 y/o F w/ PMHx: Persistent Atrial Fibrillation s/p pacemaker s/p ablation, Hx Diastolic CHF, Valvular Heart Disease s/p AVR, 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 Patient had recent black tarry stool on day of admission, low hemoglobin and Dr. Francis office and therefore was admitted through ER for further evaluation and management. Patient was also admitted in May 2018 and had upper and lower endoscopy/colonoscopy by surgeon but at that time only hemorrhoids was found. Patient was discharged with possible small bowel outpatient capsule endoscopy. 1. Acute on chronic iron deficiency anemia -with melena on the day of admission colon/EGD 05/2018 negative except hemorrhoids. Patient had 2 units of PRBC on 07/21 and 2 more units ordered today. IV Lasix in between 2 transfusions.On IV fluid. Patient had transient hypotension in the ER. 2. Acute anemia of blood loss secondary to duodenal erosions: Dr. Wallace called me to inform that patient has erythematous mucosa in the antrum and to duodenal erosions out of which was one actively bleeding. This was injected with epinephrine. No specimen was collected. Patient also had transient hypotension in PACU which was resuscitated. Patient blood pressure was in 110s in PACU. Patient is being transferred to stepdown unit in PCU. 2. Leukocytosis - unclear etiology, progressively increasing on prior labs. 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 Follow-up with the oncologist. UA is negative for pyuria, hematuria. LE 100. Nitrite negative. On microscopic, yellow and clear. Urine culture pending. No need for empiric antibiotic. 3. Hx diastolic CHF -lungs are clear. On IV fluid and PRBC transfusion. Watch out for fluid overload. On IV Lasix 40 mg in between to transfusion. 4. Hx Mitral and Aortic valve replacements - bovine. 3/6 murmur. She states these are due for replacement. The patient follows Dr. hale. She has failure of bovine valves about 3 years ago and has been referred to [facility] cardiothoracic surgeon to reevaluate but has not seen yet. 5. DMt2 - SSI. Hold metformin 6. Hx Hemangiomas - Eye, liver. No OAC. 7. Hx Paroxysmal Afib - no OAC 2/2 #6. Rate controlled. Has pacemaker. 8. CKD III - stable 9. Hx COPD - stable 10. Former smoker - from age 18 to 61. 11. HTN - hold orals for hypotension. resume in am if stable. DVT ppx: SCDs Active Medications Acetaminophen (Tylenol) 650 mg PO Q6H PRN PRN PRN Reason: Non-cardiac pain (mod-severe) Al Hydroxide/Mg Hydroxide (Mylanta Ii) 15 - 30 ml PO Q4H PRN PRN PRN Reason: INDIGESTION Albuterol Sulfate (Ventolin Aerosols) 2.5 mg INHALATION Q2H PRN PRN PRN Reason: dyspnea, wheezing Albuterol/Ipratropium (Duoneb) 3 ml INHALATION Q6HWA.RT [facility] Last Admin: 07/22/18 13:00 Dose: Not Given Cholecalciferol (Vitamin D) 1,000 unit PO DAILY [facility] Last Admin: 07/22/18 08:21 Dose: 1,000 unit Dextrose (D50w Syringe) 0 gm IV X1 PRN; Protocol PRN Reason: Hypoglycemia Ferrous Sulfate (Ferrous Sulfate) 325 mg PO BIDCM [facility] Last Admin: 07/22/18 08:20 Dose: 325 mg Furosemide (Lasix) 40 mg PO BIDLX [facility] Glucagon () 1 mg IM .X1 PRN PRN Reason: Hypoglycemia Hydralazine HCl (Apresoline Iv) 10 mg IV Q4H PRN PRN PRN Reason: SBP > 160 Sodium Chloride () 1,000 mls @ 100 mls/hr IV .Q10H [facility] Last Admin: 07/22/18 11:31 Dose: 100 mls/hr Pantoprazole Sodium 40 mg/ (Sodium Chloride) 110 mls @ 330 mls/hr IV Q12 [facility] Last Admin: 07/22/18 10:42 Dose: 330 mls/hr Insulin Human Lispro (Humalog Kwikpen (Bkc)) 0 unit SC [facility]; Protocol Last Admin: 07/22/18 11:30 Dose: Not Given Levothyroxine Sodium (Synthroid) 50 mcg PO DAILY@0600 [facility] Last Admin: 07/22/18 05:47 Dose: 50 mcg Loratadine (Claritin) 10 mg PO DAILY [facility] Last Admin: 07/22/18 08:21 Dose: 10 mg Losartan Potassium (Cozaar) 100 mg PO DAILY [facility] Last Admin: 07/22/18 10:41 Dose: Not Given Multivitamins/Minerals (Multivitamin With Minerals) 1 tablet PO DAILY@0800 [facility] Last Admin: 07/22/18 08:21 Dose: 1 tablet Ondansetron HCl (Zofran) 4 mg IV Q8H PRN PRN PRN Reason: NAUSEA/VOMITING Last Admin: 07/21/18 21:53 Dose: 4 mg Potassium [facility] Last Admin: 07/22/18 08:20 Dose: 40 meq Sodium Chloride () 5 - 15 ml IV UD PRN PRN Reason: SALINE FLUSH Sucralfate (Carafate) 1 gm PO 1HR_[facility] Microbiology Past 72 Hours 07/22/18 05:30 Stool Stool Occult Blood (RAMSES) - Final Occult Blood Positive Laboratory Results 07/21/18 20:15: Urine Color Yellow, Urine Clarity Clear, Urine pH 5.0, Ur Specific Aspen 1.020, Urine Protein Negative, Urine Glucose (UA) Normal, Urine Ketones Negative, Urine Occult Blood Negative, Urine Nitrite Negative, Urine Bilirubin Negative, Urine Urobilinogen Normal, Ur Leukocyte Esterase 100 H, Urine RBC 0 SEEN, Urine WBC 0-5 SEEN, Ur Squamous Epith Cells 0-5 SEEN, Urine Bacteria 0 SEEN, Urine Mucus 0 SEEN 07/21/18 20:58: Phosphorus 3.5, Magnesium 1.9 07/21/18 23:11: POC Glucose 158 H 07/22/18 02:52: Hgb 7.6 L, Hct 24.8 L 07/22/18 05:52: WBC 17.0 H, RBC 2.55 L, Hgb 7.8 L, Hct 25.0 L, MCV 98.0, MCH 30.6, MCHC 31.2 L, RDW 21.0 H, RDW Differential 72.1 H, Plt Count 418, MPV 9.4, Immature Gran % (Auto) 1.200 H, Neut % (Auto) 76.4 H, Lymph % (Auto) 10.3 L, [place] % (Auto) 10.6 H, Eos % (Auto) 1.0, Baso % (Auto) 0.5, Absolute Neuts (auto) 13.0 H, Absolute Lymphs (auto) 1.76, Total Counted Not Reportable, Differential Comment SCAN, Diff Path Review Reviewed, Platelet Estimate ADEQUATE, Plt Morphology Comment LARGE, Polychromasia 1+, Hypochromasia 1+, Anisocytosis 2+, Microcytosis 1+ 07/22/18 05:52: Sodium 138, Potassium 3.8, Chloride 106, Carbon Dioxide 22.0, Anion Gap 10, BUN 38 H, Creatinine 1.01, Estim Creat Clear Calc 41.04, Est GFR (MDRD) Af Amer 69, Est GFR (MDRD) Non-Af 57 L, BUN/Creatinine Ratio 37.6 H, Glucose 163 H, Calcium 8.2 L 07/22/18 05:52: Hemoglobin A1c 5.1 07/22/18 05:52: TSH 3.03 Code Visit Inpatient E&M: 55024 Subs Hosp L3
[2018-07-22 16:51] LABS: Bedside Glucose 126 mg/dL (70-110)
--- NOTE | 2018-07-22 16:56 | PN_ITS ---
Patient Problems: Active and Suspected Problems (Last Reviewed 07/21/18 @ 12:10 by Saba Carlos) Iron deficiency anemia (Acute) Anemia (Acute) Subjective: No fever or chills. Heart rate in 60s. Blood pressure dropped during the EGD procedure. 105/55. Blood pressure recovered with IV fluid. Discussed with surgeon. Patient is being transferred to PCU stepdown. 2 units of PRBC ordered. Vitals/I&O's: Vital Signs Temp Pulse Resp BP Pulse Ox 98.3 F 60 16 105/55 L 94 07/22/18 15:59 07/22/18 16:06 07/22/18 15:59 07/22/18 15:59 07/22/18 15:59 Oxygen Flow Rate (L/min) 2 Oxygen Delivery Method Room Air Weight: 223 lb Body Mass Index (BMI) 39.4 Intake and Output for Last 24 Hours 07/20/18 07/21/18 07/22/18 23:59 23:59 23:59 Intake Total 400 / 400 5157 / 5157 Output Total 1200 / 1200 Balance 400 / 400 3957 / 3957 General: Alert, Oriented x3, Cooperative HEENT: Atraumatic, PERRLA, EOMI, Normocephalic Neck: Supple, No JVD, Negative Carotid Bruits Lungs: Clear to auscultation, No rhonchi, No wheeze, No rales, Diminished - Air entry is diminished bilaterally. Cardiovascular: Regular rate, Regular Rhythm, Normal S1, Normal S2, Murmur - Systolic murmur present over aortic area over right sternal border and left lower sternal border. Pansystolic murmur over mitral area. Abdomen: Bowel Sounds Present, Soft, Non Tender, Non-Distended Extremities: Capillary Refill Less than 3 Seconds, Edema Skin: No rashes, No breakdown Musculoskeletal: No Tenderness to Palpation of Joints or Extremities, Arthritic Changes Lymphatic: No Cervical, Supraclavicular, or Inguinal Adenopathy Neurological: Cranial nerves II-XII grossly intact, Deep Tendon Reflexes 2+/4 and Symmetrical, Neuro grossly intact Psych/Mental Status: Normal Affect, Appropriate Microbiology Past 72 Hours 07/22/18 05:30 Stool Stool Occult Blood (RAMSES) - Final Occult Blood Positive Laboratory Results 07/21/18 13:30: Diff Path Review Reviewed 07/21/18 13:30: Blood Type O NEGATIVE, Antibody Screen NEGATIVE, Crossmatch See Detail 07/21/18 13:30: Crossmatch See Detail 07/21/18 20:15: Urine Color Yellow, Urine Clarity Clear, Urine pH 5.0, Ur Specific [place] 1.020, Urine Protein Negative, Urine Glucose (UA) Normal, Urine Ketones Negative, Urine Occult Blood Negative, Urine Nitrite Negative, Urine Bilirubin Negative, Urine Urobilinogen Normal, Ur Leukocyte Esterase 100 H, Urin e RBC 0 SEEN, Urine WBC 0-5 SEEN, Ur Squamous Epith Cells 0-5 SEEN, Urine Bacteria 0 SEEN, Urine Mucus 0 SEEN 07/21/18 20:58: Phosphorus 3.5, Magnesium 1.9 07/21/18 23:11: POC Glucose 158 H 07/22/18 02:52: Hgb 7.6 L, Hct 24.8 L 07/22/18 05:52: WBC 17.0 H, RBC 2.55 L, Hgb 7.8 L, Hct 25.0 L, MCV 98.0, MCH 30.6, MCHC 31.2 L, RDW 21.0 H, RDW Differential 72.1 H, Plt Count 418, MPV 9.4, Immature Gran % (Auto) 1.200 H, Neut % (Auto) 76.4 H, Lymph % (Auto) 10.3 L, Winkler % (Auto) 10.6 H, Eos % (Auto) 1.0, Baso % (Auto) 0.5, Absolute Neuts (auto) 13.0 H, Absolute Lymphs (auto) 1.76, Total Counted Not Reportable, Differential Comment SCAN, Diff Path Review Reviewed, Platelet Estimate ADEQUATE, Plt Morphology Comment LARGE, Polychromasia 1+, Hypochromasia 1+, Anisocytosis 2+, Microcytosis 1+ 07/22/18 05:52: Sodium 138, Potassium 3.8, Chloride 106, Carbon Dioxide 22.0, Anion Gap 10, BUN 38 H, Creatinine 1.01, Estim Creat Clear Calc 41.04, Est GFR (MDRD) Af Amer 69, Est GFR (MDRD) Non-Af 57 L, BUN/Creatinine Ratio 37.6 H, Glucose 163 H, Calcium 8.2 L 07/22/18 05:52: Hemoglobin A1c 5.1 07/22/18 05:52: TSH 3.03 07/22/18 06:51: POC Glucose 143 H 07/22/18 11:25: POC Glucose 126 H 07/22/18 14:28: Hgb 7.4 L, Hct 25.0 L Current Medications Acetaminophen (Tylenol) 650 mg PO Q6H PRN PRN PRN Reason: Non-cardiac pain (mod-severe) Al Hydroxide/Mg Hydroxide (Mylanta Ii) 15 - 30 ml PO Q4H PRN PRN PRN Reason: INDIGESTION Albuterol Sulfate (Ventolin Aerosols) 2.5 mg INHALATION Q2H PRN PRN PRN Reason: dyspnea, wheezing Albuterol/Ipratropium (Duoneb) 3 ml INHALATION Q6HWA.RT [facility] Last Admin: 07/22/18 13:00 Dose: Not Given Cholecalciferol (Vitamin D) 1,000 unit PO DAILY [facility] Last Admin: 07/22/18 08:21 Dose: 1,000 unit Dextrose (D50w Syringe) 0 gm IV X1 PRN; Protocol PRN Reason: Hypoglycemia Ferrous Sulfate (Ferrous Sulfate) 325 mg PO BIDCM [facility] Last Admin: 07/22/18 08:20 Dose: 325 mg Furosemide (Lasix) 40 mg PO BIDLX [facility] Glucagon () 1 mg IM .X1 PRN PRN Reason: Hypoglycemia Hydralazine HCl (Apresoline Iv) 10 mg IV Q4H PRN PRN PRN Reason: SBP > 160 Sodium Chloride () 1,000 mls @ 100 mls/hr IV .Q10H [facility] Last Admin: 07/22/18 11:31 Dose: 100 mls/hr Pantoprazole Sodium 40 mg/ (Sodium Chloride) 110 mls @ 330 mls/hr IV Q12 [facility] Last Admin: 07/22/18 10:42 Dose: 330 mls/hr Insulin Human Lispro (Humalog Kwikpen (Bkc)) 0 unit SC ACHS [facility]; Protocol Last Admin: 07/22/18 11:30 Dose: Not Given Levothyroxine Sodium (Synthroid) 50 mcg PO DAILY@0600 [facility] Last Admin: 07/22/18 05:47 Dose: 50 mcg Loratadine (Claritin) 10 mg PO DAILY [facility] Last Admin: 07/22/18 08:21 Dose: 10 mg Losartan Potassium (Cozaar) 100 mg PO DAILY [facility] Last Admin: 07/22/18 10:41 Dose: Not Given Multivitamins/Minerals (Multivitamin With Minerals) 1 tablet PO DAILY@0800 [facility] Last Admin: 07/22/18 08:21 Dose: 1 tablet Ondansetron HCl (Zofran) 4 mg IV Q8H PRN PRN PRN Reason: NAUSEA/VOMITING Last Admin: 07/21/18 21:53 Dose: 4 mg Potassium Chloride (K-Dur) 40 meq PO DAILYCM [facility] Last Admin: 07/22/18 08:20 Dose: 40 meq Sodium Chloride () 5 - 15 ml IV UD PRN PRN Reason: SALINE FLUSH Sucralfate (Carafate) 1 gm PO 1HR_ACHS [facility] Medical Necessity - Tobacco Use Smoking Status: Former smoker Tobacco Use: Non-smoker Assessment/Plan All Active Problems (Last Reviewed 07/21/18 @ 12:10 by Saba Carlos) Dyspnea on exertion (Acute) Acute blood loss anemia (Acute) Upper GI bleed (Acute) Epistaxis (Acute) Elevated troponin (Acute) Iron deficiency anemia (Acute) Anemia (Acute) The patient is a 72 y/o F w/ PMHx: Persistent Atrial Fibrillation s/p pacemaker s/p ablation, Hx Diastolic CHF, Valvular Heart Disease s/p AVR, 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 Patient had recent black tarry stool on day of admission, low hemoglobin and Dr. Francis office and therefore was admitted through ER for further evaluation and management. Patient was also admitted in May 2018 and had upper and lower endoscopy/colonoscopy by surgeon but at that time only hemorrhoids was found. Patient was discharged with possible small bowel outpatient capsule endoscopy. 1. Acute on chronic iron deficiency anemia -with melena on the day of admission colon/EGD 05/2018 negative except hemorrhoids. Patient had 2 units of PRBC on 07/21 and 2 more units ordered today. IV Lasix in between 2 transfusions.On IV fluid. Patient had transient hypotension in the ER. 2. Acute anemia of blood loss secondary to duodenal erosions: Dr. Wallace called me to inform that patient has erythematous mucosa in the antrum and to duodenal erosions out of which was one actively bleeding. This was injected with epinephrine. No specimen was collected. Patient also had transient hypotension in PACU which was resuscitated. Patient blood pressure was in 110s in PACU. Patient is being transferred to stepdown unit in PCU. 2. Leukocytosis - unclear etiology, progressively increasing on prior labs. 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 Follow-up with the oncologist. UA is negative for pyuria, hematuria. LE 100. Nitrite negative. On microscopic, yellow and clear. Urine culture pending. No need for empiric antibiotic. 3. Hx diastolic CHF -lungs are clear. On IV fluid and PRBC transfusion. Watch out for fluid overload. On IV Lasix 40 mg in between to transfusion. 4. Hx Mitral and Aortic valve replacements - bovine. 3/6 murmur. She states these are due for replacement. The patient follows Dr. hale. She has failure of bovine valves about 3 years ago and has been referred to [facility] cardiothoracic surgeon to reevaluate but has not seen yet. 5. DMt2 - SSI. Hold metformin 6. Hx Hemangiomas - Eye, liver. No OAC. 7. Hx Paroxysmal Afib - no OAC 2/2 #6. Rate controlled. Has pacemaker. 8. CKD III - stable 9. Hx COPD - stable 10. Former smoker - from age 18 to 61. 11. HTN - hold orals for hypotension. resume in am if stable. DVT ppx: SCDs Active Medications Acetaminophen (Tylenol) 650 mg PO Q6H PRN PRN PRN Reason: Non-cardiac pain (mod-severe) Al Hydroxide/Mg Hydroxide (Mylanta Ii) 15 - 30 ml PO Q4H PRN PRN PRN Reason: INDIGESTION Albuterol Sulfate (Ventolin Aerosols) 2.5 mg INHALATION Q2H PRN PRN PRN Reason: dyspnea, wheezing Albuterol/Ipratropium (Duoneb) 3 ml INHALATION Q6HWA.RT [facility] Last Admin: 07/22/18 13:00 Dose: Not Given Cholecalciferol (Vitamin D) 1,000 unit PO DAILY [facility] Last Admin: 07/22/18 08:21 Dose: 1,000 unit Dextrose (D50w Syringe) 0 gm IV X1 PRN; Protocol PRN Reason: Hypoglycemia Ferrous Sulfate (Ferrous Sulfate) 325 mg PO BIDCM [facility] Last Admin: 07/22/18 08:20 Dose: 325 mg Furosemide (Lasix) 40 mg PO BIDLX [facility] Glucagon () 1 mg IM .X1 PRN PRN Reason: Hypoglycemia Hydralazine HCl (Apresoline Iv) 10 mg IV Q4H PRN PRN PRN Reason: SBP > 160 Sodium Chloride () 1,000 mls @ 100 mls/hr IV .Q10H [facility] Last Admin: 07/22/18 11:31 Dose: 100 mls/hr Pantoprazole Sodium 40 mg/ (Sodium Chloride) 110 mls @ 330 mls/hr IV Q12 [facility] Last Admin: 07/22/18 10:42 Dose: 330 mls/hr Insulin Human Lispro (Humalog Kwikpen (Bkc)) 0 unit SC [facility]; Protocol Last Admin: 07/22/18 11:30 Dose: Not Given Levothyroxine Sodium (Synthroid) 50 mcg PO DAILY@0600 [facility] Last Admin: 07/22/18 05:47 Dose: 50 mcg Loratadine (Claritin) 10 mg PO DAILY [facility] Last Admin: 07/22/18 08:21 Dose: 10 mg Losartan Potassium (Cozaar) 100 mg PO DAILY [facility] Last Admin: 07/22/18 10:41 Dose: Not Given Multivitamins/Minerals (Multivitamin With Minerals) 1 tablet PO DAILY@0800 [facility] Last Admin: 07/22/18 08:21 Dose: 1 tablet Ondansetron HCl (Zofran) 4 mg IV Q8H PRN PRN PRN Reason: NAUSEA/VOMITING Last Admin: 07/21/18 21:53 Dose: 4 mg Potassium [facility] Admin: 07/22/18 08:20 Dose: 40 meq Sodium Chloride () 5 - 15 ml IV UD PRN PRN Reason: SALINE FLUSH Sucralfate (Carafate) 1 gm PO 1HR_[facility] Microbiology Past 72 Hours 07/22/18 05:30 Stool Stool Occult Blood (RAMSES) - Final Occult Blood Positive Laboratory Results 07/21/18 20:15: Urine Color Yellow, Urine Clarity Clear, Urine pH 5.0, Ur Specific [place] 1.020, Urine Protein Negative, Urine Glucose (UA) Normal, Urine Ketones Negative, Urine Occult Blood Negative, Urine Nitrite Negative, Urine Bilirubin Negative, Urine Urobilinogen Normal, Ur Leukocyte Esterase 100 H, Urine RBC 0 SEEN, Urine WBC 0-5 SEEN, Ur Squamous Epith Cells 0-5 SEEN, Urine Bacteria 0 SEEN, Urine Mucus 0 SEEN 07/21/18 20:58: Phosphorus 3.5, Magnesium 1.9 07/21/18 23:11: POC Glucose 158 H 07/22/18 02:52: Hgb 7.6 L, Hct 24.8 L 07/22/18 05:52: WBC 17.0 H, RBC 2.55 L, Hgb 7.8 L, Hct 25.0 L, MCV 98.0, MCH 30.6, MCHC 31.2 L, RDW 21.0 H, RDW Differential 72.1 H, Plt Count 418, MPV 9.4, Immature Gran % (Auto) 1.200 H, Neut % (Auto) 76.4 H, Lymph % (Auto) 10.3 L, Winkler % (Auto) 10.6 H, Eos % (Auto) 1.0, Baso % (Auto) 0.5, Absolute Neuts (auto) 13.0 H, Absolute Lymphs (auto) 1.76, Total Counted Not Reportable, Differential Comment SCAN, Diff Path Review Reviewed, Platelet Estimate ADEQUATE, Plt Morphology Comment LARGE, Polychromasia 1+, Hypochromasia 1+, Anisocytosis 2+, Microcytosis 1+ 07/22/18 05:52: Sodium 138, Potassium 3.8, Chloride 106, Carbon Dioxide 22.0, Anion Gap 10, BUN 38 H, Creatinine 1.01, Estim Creat Clear Calc 41.04, Est GFR (MDRD) Af Amer 69, Est GFR (MDRD) Non-Af 57 L, BUN/Creatinine Ratio 37.6 H, Glucose 163 H, Calcium 8.2 L 07/22/18 05:52: Hemoglobin A1c 5.1 07/22/18 05:52: TSH 3.03 Code Visit Inpatient E&M: 87395 Subs Hosp L3
[2018-07-22] MEDS: Sucralfate 1 GM Tablet PO ×2 (17:45→21:35)
[2018-07-22] MEDS: 0.9% NaCl Peripheral Flush Adult/Peds IV (23:17)
[2018-07-23] VITALS (15 sets, daily range): BP systolic 114–158; BP diastolic 57–80; PULSE 60–66; RESP 16–18; TEMP 36.6–37.1; O2SAT 92–100
[2018-07-23 00:20] LABS: Bedside Glucose 117 mg/dL (70-110)
[2018-07-23 04:34] LABS: Hematocrit 32.1 % (37-47); Hemoglobin 9.9 g/dl (12.0-15.0)
[2018-07-23] MEDS: 0.9% Normal Saline 1,000 ML 100 ML IV (04:45)
[2018-07-23] MEDS: 0.9% NaCl Peripheral Flush Adult/Peds IV ×2 (04:45→21:07)
[2018-07-23] MEDS: Levothyroxine 50 MCG Tablet PO (06:37)
[2018-07-23 07:01] LABS: Bedside Glucose 108 mg/dL (70-110)
--- NOTE | 2018-07-23 07:43 | PCM.PN.SRG ---
Patient Problems: Active and Suspected Problems (Last Reviewed 07/21/18 @ 12:10 by Saba Carlos) Iron deficiency anemia (Acute) Anemia (Acute) Subjective: Patient did have slow bleeding duodenal erosion and epinephrine was injected yesterday, patient did receive 2 units packed red blood cells hemoglobin currently 9.9 from 7.4 - Physical Exam General: Alert, Oriented x3, Cooperative, No apparent distress Lungs: Normal air movement Abdomen: Soft, Non Tender, Non-Distended Vital Signs Temp Pulse Resp BP Pulse Ox 98.4 F 60 18 114/77 98 07/23/18 04:37 07/23/18 07:39 07/23/18 04:37 07/23/18 04:37 07/23/18 04:37 Oxygen Flow Rate (L/min) 1 Oxygen Delivery Method CPAP Weight: 223 lb Body Mass Index (BMI) 39.4 Intake and Output for Last 24 Hours 07/21/18 07/22/18 07/23/18 23:59 23:59 23:59 Intake Total 400 / 400 5157 / 5157 606 / 606 Output Total 1200 / 1200 Balance 400 / 400 3957 / 3957 606 / 606 Microbiology Past 72 Hours 07/22/18 05:30 Stool Occult Blood (RAMSES) - Final Stool Occult Blood Positive Laboratory Tests Past 24 Hrs 07/21/18 07/21/18 07/21/18 13:30 13:30 13:30 Hgb Hct Diff Path Review Reviewed Hemoglobin A1c TSH Crossmatch See Detail See Detail 07/22/18 07/22/18 07/22/18 05:52 05:52 05:52 Hgb Hct Diff Path Review Reviewed Hemoglobin A1c 5.1 TSH 3.03 Crossmatch 07/22/18 07/23/18 14:28 04:22 Hgb 7.4 L 9.9 L Hct 25.0 L 32.1 L Diff Path Review Hemoglobin A1c TSH Crossmatch POC Glucose 07/23/18 07/22/18 07/22/18 06:36 21:23 16:32 POC Glucose 108 117 H 126 H 07/22/18 11:25 POC Glucose 126 H Medical Necessity - Tobacco Use Smoking Status: Former smoker Tobacco Use: Non-smoker Assessment/Plan All Active Problems (Last Reviewed 07/21/18 @ 12:10 by Saba Carlos) Dyspnea on exertion (Acute) Acute blood loss anemia (Acute) Upper GI bleed (Acute) Epistaxis (Acute) Elevated troponin (Acute) Iron deficiency anemia (Acute) Anemia (Acute) 72-year-old female with anemia, positive fecal occult blood, slow bleeding duodenal erosions status post epinephrine injection 1. Did start patient on clears. Plan for clears for today and continue H&H checks. Patient remained stable will advance diet later today to fulls Gloria Wallace M.D. Pager: [phone] [facility] [address] [place] [address], [address] [place] [address] Office: [phone]
[2018-07-23] MEDS: Sucralfate 1 GM Tablet PO ×4 (07:46→21:07)
[2018-07-23 09:20] LABS: Hematocrit 30.6 % (37-47); Hemoglobin 9.4 g/dl (12.0-15.0)
[2018-07-23] MEDS: Ferrous Sulfate 325 MG Tablet PO ×2 (10:02→16:24)
[2018-07-23] MEDS: Multivitamins,Ther W-Minerals Tablet 1 TABLET PO (10:03)
[2018-07-23] MEDS: Losartan Potassium 100 MG Tablet PO (10:03)
[2018-07-23] MEDS: Loratadine 10 MG Tablet PO (10:03)
[2018-07-23] MEDS: Furosemide 40 MG Tablet PO ×2 (10:04→14:08)
[2018-07-23 12:01] LABS: Bedside Glucose 139 mg/dL (70-110)
[2018-07-23 15:45] LABS: Hematocrit 31.2 % (37-47); Hemoglobin 9.6 g/dl (12.0-15.0)
--- NOTE | 2018-07-23 15:55 | CHAPLAIN ---
Type of Pastoral Visit _x__ Initial Visit ___ Follow-up Visit ___ On-call Visit ___ General Patient Visit ___ Spiritual Assessment ___ Family Conference ___ Bereavement ___ Rapid Response ___ Code Blue ___ Other (describe below) Pastoral Care Referral From _x__ Patient ___ Family ___ Nurse ___ Physician ___ Carton Packaging Machine Operator ___ Sewing Machine Repairer Helper ___ Other (describe below) Sacrament/Intervention ___ Active listening ___ Anointing ___ Congregational ___ Bereavement ___ Communion ___ Sagrario exploration ___ ___ Life review _x__ Prayer ___ Reconciliation ___ Sacrament of Sick _x__ Supportive presence ___ Wedding ___ Other (describe below) Pastoral Comments
--- NOTE | 2018-07-23 16:07 | PCM.PN.HOSP ---
Patient Problems: Active and Suspected Problems (Last Reviewed 07/21/18 @ 12:10 by Saba Carlos) Iron deficiency anemia (Acute) Anemia (Acute) Subjective: Discussed with the surgeon. Patient had a GI bleed in May and again admitted for GI bleed. EGD showed duodenal erosions with active bleeding. 4 units of total PRBC transfused. Repeat H&H 9.9/32.1, 9.4/36.6. Vitals/I&O's: Vital Signs Temp Pulse Resp BP Pulse Ox 98.7 F 63 16 125/62 H 98 07/23/18 14:05 07/23/18 14:05 07/23/18 14:05 07/23/18 14:05 07/23/18 14:05 Oxygen Flow Rate (L/min) 1 Oxygen Delivery Method Room Air Weight: 223 lb Body Mass Index (BMI) 39.4 Intake and Output for Last 24 Hours 07/21/18 07/22/18 07/23/18 23:59 23:59 23:59 Intake Total 400 / 400 5157 / 5157 1919 Output Total 1200 / 1200 Balance 400 / 400 3957 / 3957 1919 General: Alert, Oriented x3, Cooperative HEENT: Atraumatic, PERRLA, EOMI, Normocephalic Neck: Supple, No JVD, Negative Carotid Bruits Lungs: Clear to auscultation, No rhonchi, No wheeze, No rales, Diminished Cardiovascular: Regular rate, Regular Rhythm, Normal S1, Normal S2, Murmur - Systolic murmur present over aortic valve and mitral valve. Abdomen: Bowel Sounds Present, Soft, Non Tender, Non-Distended, No Hepato-splenomegaly Extremities: Capillary Refill Less than 3 Seconds, Edema Skin: No rashes, No breakdown Musculoskeletal: No Tenderness to Palpation of Joints or Extremities, Arthritic Changes Neurological: Cranial nerves II-XII grossly intact Psych/Mental Status: Normal Affect, Appropriate Microbiology Past 72 Hours 07/21/18 20:15 Urine, Clean Catch Urine Culture - Final Mixed Gram Positive Organisms 07/22/18 05:30 Stool Stool Occult Blood (RAMSES) - Final Occult Blood Positive Laboratory Results 07/21/18 13:30: Blood Type O NEGATIVE, Antibody Screen NEGATIVE, Crossmatch See Detail 07/21/18 13:30: Crossmatch See Detail 07/22/18 16:32: POC Glucose 126 H 07/22/18 21:23: POC Glucose 117 H 07/23/18 04:22: Hgb 9.9 L, Hct 32.1 L 07/23/18 06:36: POC Glucose 108 07/23/18 08:55: Hgb 9.4 L, Hct 30.6 L 07/23/18 11:53: POC Glucose 139 H 07/23/18 15:15: Hgb 9.6 L, Hct 31.2 L Current Medications Acetaminophen (Tylenol) 650 mg PO Q6H PRN PRN PRN Reason: Non-cardiac pain (mod-severe) Al Hydroxide/Mg Hydroxide (Mylanta Ii) 15 - 30 ml PO Q4H PRN PRN PRN Reason: INDIGESTION Albuterol Sulfate (Ventolin Aerosols) 2.5 mg INHALATION Q2H PRN PRN PRN Reason: dyspnea, wheezing Albuterol/Ipratropium (Duoneb) 3 ml INHALATION Q6HWA.RT [facility] Last Admin: 07/23/18 06:50 Dose: Not Given Budesonide (Pulmicort Aerosol) 0.5 mg INHALATION Q12H.RT [facility] Cholecalciferol (Vitamin D) 1,000 unit PO DAILY [facility] Last Admin: 07/23/18 10:05 Dose: 1,000 unit Dextrose (D50w Syringe) 0 gm IV X1 PRN; Protocol PRN Reason: Hypoglycemia Ferrous Sulfate (Ferrous Sulfate) 325 mg PO BIDCM [facility] Last Admin: 07/23/18 10:02 Dose: 325 mg Furosemide (Lasix) 40 mg PO BIDLX [facility] Glucagon () 1 mg IM .X1 PRN PRN Reason: Hypoglycemia Hydralazine HCl (Apresoline Iv) 10 mg IV Q4H PRN PRN PRN Reason: SBP > 160 Pantoprazole Sodium 40 mg/ (Sodium Chloride) 110 mls @ 330 mls/hr IV Q12 [facility] Last Admin: 07/23/18 14:08 Dose: 330 mls/hr Insulin Human Lispro (Humalog Kwikpen (Bkc)) 0 unit SC ACHS [facility]; Protocol Last Admin: 07/23/18 11:55 Dose: Not Given Levothyroxine Sodium (Synthroid) 50 mcg PO DAILY@0600 [facility] Last Admin: 07/23/18 06:37 Dose: 50 mcg Loratadine (Claritin) 10 mg PO DAILY [facility] Last Admin: 07/23/18 10:03 Dose: 10 mg Losartan Potassium (Cozaar) 100 mg PO DAILY [facility] Last Admin: 07/23/18 10:03 Dose: 100 mg Multivitamins/Minerals (Multivitamin With Minerals) 1 tablet PO DAILY@0800 [facility] Last Admin: 07/23/18 10:03 Dose: 1 tablet Nutritional Formula (Lactose Free) (Glucerna Shake) 120 ml PO TIDCM [facility] Ondansetron HCl (Zofran) 4 mg IV Q8H PRN PRN PRN Reason: NAUSEA/VOMITING Last Admin: 07/21/18 21:53 Dose: 4 mg Potassium Chloride (K-Dur) 40 meq PO DAILYCM [facility] Last Admin: 07/23/18 10:02 Dose: 40 meq Sodium Chloride () 5 - 15 ml IV UD PRN PRN Reason: SALINE FLUSH Last Admin: 07/23/18 04:45 Dose: 10 ml Sucralfate (Carafate) 1 gm PO 1HR_ACHS [facility] Last Admin: 07/23/18 11:21 Dose: 1 gm Medical Necessity - Tobacco Use Smoking Status: Former smoker Tobacco Use: Non-smoker Assessment/Plan All Active Problems (Last Reviewed 07/21/18 @ 12:10 by Saba Carlos) Dyspnea on exertion (Acute) Acute blood loss anemia (Acute) Upper GI bleed (Acute) Epistaxis (Acute) Elevated troponin (Acute) Iron deficiency anemia (Acute) Anemia (Acute) The patient is a 72 y/o F w/ PMHx: Persistent Atrial Fibrillation s/p pacemaker s/p ablation, Hx Diastolic CHF, Valvular Heart Disease s/p AVR, 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 Patient had recent black tarry stool on day of admission, low hemoglobin and Dr. Francis office and therefore was admitted through ER for further evaluation and management. Patient was also admitted in May 2018 and had upper and lower endoscopy/colonoscopy by surgeon but at that time only hemorrhoids was found. Patient was discharged with possible small bowel outpatient capsule endoscopy. 1. Acute on chronic iron deficiency anemia -with melena on the day of admission colon/EGD 05/2018 negative except hemorrhoids. Patient had 2 units of PRBC on 07/21 and 2 more units ordered today. IV Lasix in between 2 transfusions.On IV fluid. Patient had transient hypotension in the ER. Patient had adequate volume resuscitation. Discontinue IV fluid. 2. Acute anemia of blood loss secondary to duodenal erosions: Dr. Wallace called me to inform that patient has erythematous mucosa in the antrum and to duodenal erosions out of which was one actively bleeding. This was injected with epinephrine. No specimen was collected. Patient also had transient hypotension in PACU which was resuscitated. Patient blood pressure was in 110s in PACU. Patient was transferred to stepdown unit in PCU. If H&H stays stable. Repeat H&H tomorrow a.m. Patient can be discharged tomorrow on Protonix 40 g twice daily and Carafate 1 g 4 times daily. 2. Leukocytosis - unclear etiology, progressively increasing on prior labs. 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 Follow-up with the oncologist. UA is negative for pyuria, hematuria. LE 100. Nitrite negative. On microscopic, yellow and clear. Urine culture pending. No need for empiric antibiotic. 3. Hx diastolic CHF -lungs are clear. On IV fluid and PRBC transfusion. Watch out for fluid overload. On IV Lasix 40 mg in between to transfusion. 4. Hx Mitral and Aortic valve replacements - bovine. / murmur. She states these are due for replacement. The patient follows Dr. hale. She has failure of bovine valves about 3 years ago and has been referred to [facility] cardiothoracic surgeon to reevaluate but has not seen yet. 5. DMt2 - SSI. Hold metformin 6. Hx Hemangiomas - Eye, liver. No OAC. 7. Hx Paroxysmal Afib - no OAC 2/2 #6. Rate controlled. Has pacemaker. 8. CKD III - stable 9. Hx COPD - stable 10. Former smoker - from age 18 to 61. 11. HTN - hold orals for hypotension. resume in am if stable. DVT ppx: SCDs Signout: Acute upper GI bleed with acute anemia of blood loss. If H&H stays stable. Repeat H&H tomorrow a.m. Patient can be discharged tomorrow on Protonix 40 g twice daily and Carafate 1 g 4 times daily. Active Medications Acetaminophen (Tylenol) 650 mg PO Q6H PRN PRN PRN Reason: Non-cardiac pain (mod-severe) Al Hydroxide/Mg Hydroxide (Mylanta Ii) 15 - 30 ml PO Q4H PRN PRN PRN Reason: INDIGESTION Albuterol Sulfate (Ventolin Aerosols) 2.5 mg INHALATION Q2H PRN PRN PRN Reason: dyspnea, wheezing Albuterol/Ipratropium (Duoneb) 3 ml INHALATION Q6HWA.RT [facility] Last Admin: 07/22/18 13:00 Dose: Not Given Cholecalciferol (Vitamin D) 1,000 unit PO DAILY [facility] Last Admin: 07/22/18 08:21 Dose: 1,000 unit Dextrose (D50w Syringe) 0 gm IV X1 PRN; Protocol PRN Reason: Hypoglycemia Ferrous Sulfate (Ferrous Sulfate) 325 mg PO BIDCM [facility] Last Admin: 07/22/18 08:20 Dose: 325 mg Furosemide (Lasix) 40 mg PO BIDLX [facility] Glucagon () 1 mg IM .X1 PRN PRN Reason: Hypoglycemia Hydralazine HCl (Apresoline Iv) 10 mg IV Q4H PRN PRN PRN Reason: SBP > 160 Sodium Chloride () 1,000 mls @ 100 mls/hr IV .Q10H [facility] Last Admin: 07/22/18 11:31 Dose: 100 mls/hr Pantoprazole Sodium 40 mg/ (Sodium Chloride) 110 mls @ 330 mls/hr IV Q12 [facility] Last Admin: 07/22/18 10:42 Dose: 330 mls/hr Insulin Human Lispro (Humalog Kwikpen (Bkc)) 0 unit SC ACHS [facility]; Protocol Last Admin: 07/22/18 11:30 Dose: Not Given Levothyroxine Sodium (Synthroid) 50 mcg PO DAILY@0600 [facility] Last Admin: 07/22/18 05:47 Dose: 50 mcg Loratadine (Claritin) 10 mg PO DAILY [facility] Last Admin: 07/22/18 08:21 Dose: 10 mg Losartan Potassium (Cozaar) 100 mg PO DAILY [facility] Last Admin: 07/22/18 10:41 Dose: Not Given Multivitamins/Minerals (Multivitamin With Minerals) 1 tablet PO DAILY@0800 [facility] Last Admin: 07/22/18 08:21 Dose: 1 tablet Ondansetron HCl (Zofran) 4 mg IV Q8H PRN PRN PRN Reason: NAUSEA/VOMITING Last Admin: 07/21/18 21:53 Dose: 4 mg Potassium Chloride (K-Dur) 40 meq PO DAILYCM [facility] Last Admin: 07/22/18 08:20 Dose: 40 meq Sodium Chloride () 5 - 15 ml IV UD PRN PRN Reason: SALINE FLUSH Sucralfate (Carafate) 1 gm PO 1HR_ACHS [facility] Microbiology Past 72 Hours 07/21/18 20:15 Urine, Clean Catch Urine Culture - Final Mixed Gram Positive Organisms 07/22/18 05:30 Stool Stool Occult Blood (RAMSES) - Final Occult Blood Positive Laboratory Results 07/21/18 13:30: Blood Type O NEGATIVE, Antibody Screen NEGATIVE, Crossmatch See Detail 07/21/18 13:30: Crossmatch See Detail 07/22/18 16:32: POC Glucose 126 H 07/22/18 21:23: POC Glucose 117 H 07/23/18 04:22: Hgb 9.9 L, Hct 32.1 L 07/23/18 06:36: POC Glucose 108 07/23/18 08:55: Hgb 9.4 L, Hct 30.6 L 07/23/18 11:53: POC Glucose 139 H 07/23/18 15:15: Hgb 9.6 L, Hct 31.2 L Code Visit Inpatient E&M: 90888 Subs Hosp L2
--- NOTE | 2018-07-23 16:12 | PN_ITS ---
Patient Problems: Active and Suspected Problems (Last Reviewed 07/21/18 @ 12:10 by Saba Carlos) Iron deficiency anemia (Acute) Anemia (Acute) Subjective: Discussed with the surgeon. Patient had a GI bleed in May and again admitted for GI bleed. EGD showed duodenal erosions with active bleeding. 4 units of total PRBC transfused. Repeat H&H 9.9/32.1, 9.4/36.6. Vitals/I&O's: Vital Signs Temp Pulse Resp BP Pulse Ox 98.7 F 63 16 125/62 H 98 07/23/18 14:05 07/23/18 14:05 07/23/18 14:05 07/23/18 14:05 07/23/18 14:05 Oxygen Flow Rate (L/min) 1 Oxygen Delivery Method Room Air Weight: 223 lb Body Mass Index (BMI) 39.4 Intake and Output for Last 24 Hours 07/21/18 07/22/18 07/23/18 23:59 23:59 23:59 Intake Total 400 / 400 5157 / 5157 1919 Output Total 1200 / 1200 Balance 400 / 400 3957 / 3957 1919 General: Alert, Oriented x3, Cooperative HEENT: Atraumatic, PERRLA, EOMI, Normocephalic Neck: Supple, No JVD, Negative Carotid Bruits Lungs: Clear to auscultation, No rhonchi, No wheeze, No rales, Diminished Cardiovascular: Regular rate, Regular Rhythm, Normal S1, Normal S2, Murmur - Systolic murmur present over aortic valve and mitral valve. Abdomen: Bowel Sounds Present, Soft, Non Tender, Non-Distended, No Hepato- splenomegaly Extremities: Capillary Refill Less than 3 Seconds, Edema Skin: No rashes, No breakdown Musculoskeletal: No Tenderness to Palpation of Joints or Extremities, Arthritic Changes Neurological: Cranial nerves II-XII grossly intact Psych/Mental Status: Normal Affect, Appropriate Microbiology Past 72 Hours 07/21/18 20:15 Urine, Clean Catch Urine Culture - Final Mixed Gram Positive Organisms 07/22/18 05:30 Stool Stool Occult Blood (RAMSES) - Final Occult Blood Positive Laboratory Results 07/21/18 13:30: Blood Type O NEGATIVE, Antibody Screen NEGATIVE, Crossmatch See Detail 07/21/18 13:30: Crossmatch See Detail 07/22/18 16:32: POC Glucose 126 H 07/22/18 21:23: POC Glucose 117 H 07/23/18 04:22: Hgb 9.9 L, Hct 32.1 L 07/23/18 06:36: POC Glucose 108 07/23/18 08:55: Hgb 9.4 L, Hct 30.6 L 07/23/18 11:53: POC Glucose 139 H 07/23/18 15:15: Hgb 9.6 L, Hct 31.2 L Current Medications Acetaminophen (Tylenol) 650 mg PO Q6H PRN PRN PRN Reason: Non-cardiac pain (mod-severe) Al Hydroxide/Mg Hydroxide (Mylanta Ii) 15 - 30 ml PO Q4H PRN PRN PRN Reason: INDIGESTION Albuterol Sulfate (Ventolin Aerosols) 2.5 mg INHALATION Q2H PRN PRN PRN Reason: dyspnea, wheezing Albuterol/Ipratropium (Duoneb) 3 ml INHALATION Q6HWA.RT [facility] Last Admin: 07/23/18 06:50 Dose: Not Given Budesonide (Pulmicort Aerosol) 0.5 mg INHALATION Q12H.RT [facility] Cholecalciferol (Vitamin D) 1,000 unit PO DAILY [facility] Last Admin: 07/23/18 10:05 Dose: 1,000 unit Dextrose (D50w Syringe) 0 gm IV X1 PRN; Protocol PRN Reason: Hypoglycemia Ferrous Sulfate (Ferrous Sulfate) 325 mg PO BIDCM [facility] Last Admin: 07/23/18 10:02 Dose: 325 mg Furosemide (Lasix) 40 mg PO BIDLX [facility] Glucagon () 1 mg IM .X1 PRN PRN Reason: Hypoglycemia Hydralazine HCl (Apresoline Iv) 10 mg IV Q4H PRN PRN PRN Reason: SBP > 160 Pantoprazole Sodium 40 mg/ (Sodium Chloride) 110 mls @ 330 mls/hr IV Q12 [facility] Last Admin: 07/23/18 14:08 Dose: 330 mls/hr Insulin Human Lispro (Humalog Kwikpen (Bkc)) 0 unit SC ACHS [facility]; Protocol Last Admin: 07/23/18 11:55 Dose: Not Given Levothyroxine Sodium (Synthroid) 50 mcg PO DAILY@0600 [facility] Last Admin: 07/23/18 06:37 Dose: 50 mcg Loratadine (Claritin) 10 mg PO DAILY [facility] Last Admin: 07/23/18 10:03 Dose: 10 mg Losartan Potassium (Cozaar) 100 mg PO DAILY [facility] Last Admin: 07/23/18 10:03 Dose: 100 mg Multivitamins/Minerals (Multivitamin With Minerals) 1 tablet PO DAILY@0800 [facility] Last Admin: 07/23/18 10:03 Dose: 1 tablet Nutritional Formula (Lactose Free) (Glucerna Shake) 120 ml PO TIDCM [facility] Ondansetron HCl (Zofran) 4 mg IV Q8H PRN PRN PRN Reason: NAUSEA/VOMITING Last Admin: 07/21/18 21:53 Dose: 4 mg Potassium Chloride (K-Dur) 40 meq PO DAILYCM [facility] Last Admin: 07/23/18 10:02 Dose: 40 meq Sodium Chloride () 5 - 15 ml IV UD PRN PRN Reason: SALINE FLUSH Last Admin: 07/23/18 04:45 Dose: 10 ml Sucralfate (Carafate) 1 gm PO 1HR_ACHS [facility] Last Admin: 07/23/18 11:21 Dose: 1 gm Medical Necessity - Tobacco Use Smoking Status: Former smoker Tobacco Use: Non-smoker Assessment/Plan All Active Problems (Last Reviewed 07/21/18 @ 12:10 by Saba Carlos) Dyspnea on exertion (Acute) Acute blood loss anemia (Acute) Upper GI bleed (Acute) Epistaxis (Acute) Elevated troponin (Acute) Iron deficiency anemia (Acute) Anemia (Acute) The patient is a 72 y/o F w/ PMHx: Persistent Atrial Fibrillation s/p pacemaker s/p ablation, Hx Diastolic CHF, Valvular Heart Disease s/p AVR, 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 Patient had recent black tarry stool on day of admission, low hemoglobin and Dr. Francis office and therefore was admitted through ER for further evaluation and management. Patient was also admitted in May 2018 and had upper and lower endoscopy/colonoscopy by surgeon but at that time only hemorrhoids was found. Patient was discharged with possible small bowel outpatient capsule endoscopy. 1. Acute on chronic iron deficiency anemia -with melena on the day of admission colon/EGD 05/2018 negative except hemorrhoids. Patient had 2 units of PRBC on 07/21 and 2 more units ordered today. IV Lasix in between 2 transfusions.On IV fluid. Patient had transient hypotension in the ER. Patient had adequate volume resuscitation. Discontinue IV fluid. 2. Acute anemia of blood loss secondary to duodenal erosions: Dr. Wallace called me to inform that patient has erythematous mucosa in the antrum and to duodenal erosions out of which was one actively bleeding. This was injected with epinephrine. No specimen was collected. Patient also had transient hypotension in PACU which was resuscitated. Patient blood pressure was in 110s in PACU. Patient was transferred to stepdown unit in PCU. If H&H stays stable. Repeat H&H tomorrow a.m. Patient can be discharged tomorrow on Protonix 40 g twice daily and Carafate 1 g 4 times daily. 2. Leukocytosis - unclear etiology, progressively increasing on prior labs. + brother and father had cancer, mother had chronic anemia unclear etiology, patient was a intermediate smoker. Follow-up with the oncologist. UA is negative for pyuria, hematuria. LE 100. Nitrite negative. On microscopic, yellow and clear. Urine culture pending. No need for empiric antibiotic. 3. Hx diastolic CHF -lungs are clear. On IV fluid and PRBC transfusion. Watch out for fluid overload. On IV Lasix 40 mg in between to transfusion. 4. Hx Mitral and Aortic valve replacements - bovine. / murmur. She states these are due for replacement. The patient follows Dr. hale. She has failure of bovine valves about 3 years ago and has been referred to [facility] cardiothoracic surgeon to reevaluate but has not seen yet. 5. DMt2 - SSI. Hold metformin 6. Hx Hemangiomas - Eye, liver. No OAC. 7. Hx Paroxysmal Afib - no OAC 2/2 #6. Rate controlled. Has pacemaker. 8. CKD III - stable 9. Hx COPD - stable 10. Former smoker - from age 18 to 61. 11. HTN - hold orals for hypotension. resume in am if stable. DVT ppx: SCDs Signout: Acute upper GI bleed with acute anemia of blood loss. If H&H stays stable. Repeat H&H tomorrow a.m. Patient can be discharged tomorrow on Protonix 40 g twice daily and Carafate 1 g 4 times daily. Active Medications Acetaminophen (Tylenol) 650 mg PO Q6H PRN PRN PRN Reason: Non-cardiac pain (mod-severe) Al Hydroxide/Mg Hydroxide (Mylanta Ii) 15 - 30 ml PO Q4H PRN PRN PRN Reason: INDIGESTION Albuterol Sulfate (Ventolin Aerosols) 2.5 mg INHALATION Q2H PRN PRN PRN Reason: dyspnea, wheezing Albuterol/Ipratropium (Duoneb) 3 ml INHALATION Q6HWA.RT [facility] Last Admin: 07/22/18 13:00 Dose: Not Given Cholecalciferol (Vitamin D) 1,000 unit PO DAILY [facility] Last Admin: 07/22/18 08:21 Dose: 1,000 unit Dextrose (D50w Syringe) 0 gm IV X1 PRN; Protocol PRN Reason: Hypoglycemia Ferrous Sulfate (Ferrous Sulfate) 325 mg PO BIDCM [facility] Last Admin: 07/22/18 08:20 Dose: 325 mg Furosemide (Lasix) 40 mg PO BIDLX [facility] Glucagon () 1 mg IM .X1 PRN PRN Reason: Hypoglycemia Hydralazine HCl (Apresoline Iv) 10 mg IV Q4H PRN PRN PRN Reason: SBP > 160 Sodium Chloride () 1,000 mls @ 100 mls/hr IV .Q10H [facility] Last Admin: 07/22/18 11:31 Dose: 100 mls/hr Pantoprazole Sodium 40 mg/ (Sodium Chloride) 110 mls @ 330 mls/hr IV Q12 [facility] Last Admin: 07/22/18 10:42 Dose: 330 mls/hr Insulin Human Lispro (Humalog Kwikpen (Bkc)) 0 unit SC ACHS [facility]; Protocol Last Admin: 07/22/18 11:30 Dose: Not Given Levothyroxine Sodium (Synthroid) 50 mcg PO DAILY@0600 [facility] Last Admin: 07/22/18 05:47 Dose: 50 mcg Loratadine (Claritin) 10 mg PO DAILY [facility] Last Admin: 07/22/18 08:21 Dose: 10 mg Losartan Potassium (Cozaar) 100 mg PO DAILY [facility] Last Admin: 07/22/18 10:41 Dose: Not Given Multivitamins/Minerals (Multivitamin With Minerals) 1 tablet PO DAILY@0800 [facility] Last Admin: 07/22/18 08:21 Dose: 1 tablet Ondansetron HCl (Zofran) 4 mg IV Q8H PRN PRN PRN Reason: NAUSEA/VOMITING Last Admin: 07/21/18 21:53 Dose: 4 mg Potassium Chloride (K-Dur) 40 meq PO DAILYCM [facility] Last Admin: 07/22/18 08:20 Dose: 40 meq Sodium Chloride () 5 - 15 ml IV UD PRN PRN Reason: SALINE FLUSH Sucralfate (Carafate) 1 gm PO 1HR_ACHS [facility] Microbiology Past 72 Hours 07/21/18 20:15 Urine, Clean Catch Urine Culture - Final Mixed Gram Positive Organisms 07/22/18 05:30 Stool Stool Occult Blood (RAMSES) - Final Occult Blood Positive Laboratory Results 07/21/18 13:30: Blood Type O NEGATIVE, Antibody Screen NEGATIVE, Crossmatch See Detail 07/21/18 13:30: Crossmatch See Detail 07/22/18 16:32: POC Glucose 126 H 07/22/18 21:23: POC Glucose 117 H 07/23/18 04:22: Hgb 9.9 L, Hct 32.1 L 07/23/18 06:36: POC Glucose 108 07/23/18 08:55: Hgb 9.4 L, Hct 30.6 L 07/23/18 11:53: POC Glucose 139 H 07/23/18 15:15: Hgb 9.6 L, Hct 31.2 L Code Visit Inpatient E&M: 26841 Subs Hosp L2
[2018-07-23] MEDS: Glucerna Shake 120 ML LIQUID PO (16:25)
[2018-07-23 17:06] LABS: Bedside Glucose 109 mg/dL (70-110)
[2018-07-23 21:21] LABS: Bedside Glucose 98 mg/dL (70-110)
[2018-07-24 03:01] VITALS: PULSE 60
[2018-07-24 04:00] VITALS: BP 126/62; PULSE 64; RESP 18; TEMP 36.6; O2SAT 96
[2018-07-24] MEDS: Sucralfate 1 GM Tablet PO ×2 (06:44→10:41)
[2018-07-24] MEDS: Levothyroxine 50 MCG Tablet PO (06:44)
[2018-07-24 06:51] LABS: Bedside Glucose 84 mg/dL (70-110)
[2018-07-24 07:05] VITALS: PULSE 65
[2018-07-24 07:15] VITALS: O2SAT 96
--- NOTE | 2018-07-24 08:00 | PCM.PN.SRG ---
Patient Problems: Active and Suspected Problems (Last Reviewed 07/21/18 @ 12:10 by Saba Carlos) Iron deficiency anemia (Acute) Anemia (Acute) Subjective: Patient's hemoglobin has remained stable, CBC this morning is pending, patient did have a minor nosebleed which she states she is able to stop quickly with pressure last night, patient tolerating fulls - Physical Exam General: Alert, Oriented x3, Cooperative, No apparent distress Cardiovascular: Regular rate Abdomen: Soft, Non Tender, Non-Distended Vital Signs Temp Pulse Resp BP Pulse Ox 97.8 F 64 18 126/62 H 96 07/24/18 04:00 07/24/18 04:00 07/24/18 04:00 07/24/18 04:00 07/24/18 07:15 Oxygen Flow Rate (L/min) 1 Oxygen Delivery Method Room Air Weight: 223 lb Body Mass Index (BMI) 39.4 Intake and Output for Last 24 Hours 07/22/18 07/23/18 07/24/18 23:59 23:59 23:59 Intake Total 5157 / 5157 2799 / 2799 Output Total 1200 / 1200 Balance 3957 / 3957 2799 / 2799 Microbiology Past 72 Hours 07/21/18 20:15 Urine Culture - Final Urine, Clean Catch Mixed Gram Positive Organisms 07/22/18 05:30 Stool Occult Blood (ARMSES) - Final Stool Occult Blood Positive Laboratory Tests Past 24 Hrs 07/21/18 07/23/18 07/23/18 13:30 08:55 15:15 WBC RBC Hgb 9.4 L 9.6 L Hct 30.6 L 31.2 L MCV MCH MCHC RDW RDW Differential Plt Count Neut % (Auto) Absolute Neuts (auto) Total Counted Blood Type O NEGATIVE Antibody Screen NEGATIVE Crossmatch See Detail 07/24/18 07:08 WBC Pending RBC Pending Hgb Pending Hct Pending MCV Pending MCH Pending MCHC Pending RDW Pending RDW Differential Pending Plt Count Pending Neut % (Auto) Pending Absolute Neuts (auto) Pending Total Counted Pending Blood Type Antibody Screen Crossmatch POC Glucose 07/24/18 07/23/18 07/23/18 06:41 21:05 16:21 POC Glucose 84 98 109 07/23/18 11:53 POC Glucose 139 H Medical Necessity - Tobacco Use Smoking Status: Former smoker Tobacco Use: Non-smoker Assessment/Plan All Active Problems (Last Reviewed 07/21/18 @ 12:10 by Saba Carlos) Dyspnea on exertion (Acute) Acute blood loss anemia (Acute) Upper GI bleed (Acute) Epistaxis (Acute) Elevated troponin (Acute) Iron deficiency anemia (Acute) Anemia (Acute) 72-year-old female with anemia, positive fecal occult blood, bleeding duodenal erosion status post injection of epinephrine 1. Await CBC if remains stable will advance patient to a soft diet and if tolerated should be okay to DC home. Will recommend patient stay on soft diet for about a week she states she already has blood work scheduled for this . We will have the patient's take Protonix 40 mg p.o. twice daily as well as Carafate 1 g p.o. 4 times daily x1 month on discharge, the [facility]. We will have patient follow-up with me in 2 weeks. Gloria Wallace M.D. Pager: [phone] [facility] [address] [place] [address], [address] [place] [address] Office: [phone]
--- NOTE | 2018-07-24 08:03 | PN.SURG_ITS ---
Patient Problems: Active and Suspected Problems (Last Reviewed 07/21/18 @ 12:10 by Saba Carlos) Iron deficiency anemia (Acute) Anemia (Acute) Subjective: Patient's hemoglobin has remained stable, CBC this morning is pending, patient did have a minor nosebleed which she states she is able to stop quickly with pressure last night, patient tolerating fulls - Physical Exam General: Alert, Oriented x3, Cooperative, No apparent distress Cardiovascular: Regular rate Abdomen: Soft, Non Tender, Non-Distended Vital Signs Temp Pulse Resp BP Pulse Ox 97.8 F 64 18 126/62 H 96 07/24/18 04:00 07/24/18 04:00 07/24/18 04:00 07/24/18 04:00 07/24/18 07:15 Oxygen Flow Rate (L/min) 1 Oxygen Delivery Method Room Air Weight: 223 lb Body Mass Index (BMI) 39.4 Intake and Output for Last 24 Hours 07/22/18 07/23/18 07/24/18 23:59 23:59 23:59 Intake Total 5157 / 5157 2799 / 2799 Output Total 1200 / 1200 Balance 3957 / 3957 2799 / 2799 Microbiology Past 72 Hours 07/21/18 20:15 Urine Culture - Final Urine, Clean Catch Mixed Gram Positive Organisms 07/22/18 05:30 Stool Occult Blood (RAMSES) - Final Stool Occult Blood Positive Laboratory Tests Past 24 Hrs 07/21/18 07/23/18 07/23/18 13:30 08:55 15:15 WBC RBC Hgb 9.4 L 9.6 L Hct 30.6 L 31.2 L MCV MCH MCHC RDW RDW Differential Plt Count Neut % (Auto) Absolute Neuts (auto) Total Counted Blood Type O NEGATIVE Antibody Screen NEGATIVE Crossmatch See Detail 07/24/18 07:08 WBC Pending RBC Pending Hgb Pending Hct Pending MCV Pending MCH Pending MCHC Pending RDW Pending RDW Differential Pending Plt Count Pending Neut % (Auto) Pending Absolute Neuts (auto) Pending Total Counted Pending Blood Type Antibody Screen Crossmatch POC Glucose 07/24/18 07/23/18 07/23/18 06:41 21:05 16:21 POC Glucose 84 98 109 07/23/18 11:53 POC Glucose 139 H Medical Necessity - Tobacco Use Smoking Status: Former smoker Tobacco Use: Non-smoker Assessment/Plan All Active Problems (Last Reviewed 07/21/18 @ 12:10 by Saba Carlos) Dyspnea on exertion (Acute) Acute blood loss anemia (Acute) Upper GI bleed (Acute) Epistaxis (Acute) Elevated troponin (Acute) Iron deficiency anemia (Acute) Anemia (Acute) 72-year-old female with anemia, positive fecal occult blood, bleeding duodenal erosion status post injection of epinephrine 1. Await CBC if remains stable will advance patient to a soft diet and if tolerated should be okay to DC home. Will recommend patient stay on soft diet for about a week she states she already has blood work scheduled for this . We will have the patient's take Protonix 40 mg p.o. twice daily as well as Carafate 1 g p.o. 4 times daily x1 month on discharge, the scripts [facility]. We will have patient follow-up with me in 2 weeks. Gloria Wallace M.D. Pager: [phone] [facility] [address] [place] [address], [address] [place] [address] Office: [phone]
[2018-07-24 08:09] LABS: Absolute Lymphocyte Count 1.55 X10^3/ul (0.83-4.51); Basophil% 0.9 % (0-1); Eosinophil# 0.27 X10^3/uL; Eosinophils% 2.4 % (0-5); Hematocrit 34.3 % (37-47); Hemoglobin 10.4 g/dl (12.0-15.0); Lymphocyte # 1.55 X10^3/ul (4.0); Lymphocyte % 13.7 % (19-41); Mean Corp Hgb Conc 30.3 g/gl (32-36); Mean Corpuscular Hgb 30.2 pg (27.0-32.0); Mean Corpuscular Volume 99.7 fL (81-99); Mean Platelet Vol. 9.5 fl (6.2-12.0); Monocyte# 1.34 X10^3/uL; Monocyte% 11.8 % (0-10); Neutrophil # 8.02 X10^3/uL (2.7-7.7); Neutrophil % 70.8 % (47-70); Platelet Count 486 K/mm3 (150-450); RBC Distribution Width CV 21.2 % (11.6-14.6); RBC Distribution Width SD 72.2 fl (35.1-43.9); Red Blood Count 3.44 M/mm3 (4.2-5.4); White Blood Count 11.3 K/mm3 (4.4-11.0)
[2018-07-24 08:34] LABS: Differential Indicated SCAN CRITERIA MET; POSITIVE COUNT NO; POSITIVE DIFFERENTIAL NO; POSITIVE MORPHOLOGY YES
[2018-07-24 08:38] LABS: Absolute Nucleated RBC Count 0.06 10^3/uL (0-5); Anisocytosis 2+; Differential Comment SCANNED; Hypochromasia 1+; Macrocytosis 1+; Microcytosis 1+; NRBC Flagged by Analyzer 0.5 % (0-5)
[2018-07-24] MEDS: Multivitamins,Ther W-Minerals Tablet 1 TABLET PO (08:41)
[2018-07-24] MEDS: Docusate Sodium 100 MG Capsule PO (08:41)
[2018-07-24] MEDS: Loratadine 10 MG Tablet PO (08:41)
[2018-07-24] MEDS: Glucerna Shake 120 ML LIQUID PO (08:42)
[2018-07-24 10:43] VITALS: BP 125/79; PULSE 68; RESP 18; TEMP 36.8; O2SAT 95
[2018-07-24] MEDS: Ferrous Sulfate 325 MG Tablet PO (10:47)
[2018-07-24] MEDS: Losartan Potassium 100 MG Tablet PO (10:47)
[2018-07-24 11:12] VITALS: PULSE 60
--- NOTE | 2018-07-24 11:24 | PCM.DC ---
- Discharge Diagnoses Current Active Problems: Current Active and Chronic Problems (Last Reviewed 07/21/18 @ 12:10 by Saba Carlos) Iron deficiency anemia (Acute) Diastolic CHF (Chronic) Anemia (Acute) You will use the following diet at home:: Cardiac - soft diet for 1 week Your food should be the consistency of: Regular Your liquids should be the consistency of: Regular/Thin Discharge Activity: Return to Normal Activity Weight Bearing Status: Weight bearing as tolerated Call your doctor if you observe: Shortness of breath, Dizziness, - - dark, tarry stools Instructions: ED Anemia Type Not Specified, Upper GI Endoscopy, ED Bleed UGI Stable Allergies/Adverse Reactions: Allergies Penicillins Allergy (Severe, Verified 07/21/18 13:00) Hives swelling of tongue and throat codeine Adverse Reaction (Severe, Verified 07/21/18 13:00) HALLUCINATIONS morphine Adverse Reaction (Severe, Verified 07/21/18 13:00) HALLUCINATIONS Qkmrmbh-Dtj-Mpw Reductase Inhibitor Adverse Reaction (Severe, Verified 07/21/18 13:00) Other leg cramps Medications to take at Discharge Vit C/E/Zn/Coppr/Lutein/Zeaxan [Preservision Areds 2 Softgel] 1 ea PO BID 10/24/16 albuterol sulfate HFA 90 mcg/actuation aerosol inhaler 2 puff INHALATION Q6H PRN PRN 06/11/17 fluticasone 250 mcg-salmeterol 50 mcg/dose blistr powdr for inhalation 1 inh INHALATION Q12H 06/11/17 levothyroxine 50 mcg tablet 50 mcg PO DAILY tab 06/11/17 metformin ER 750 mg tablet,extended release 24 hr 750 mg PO DAILY 30 Days #30 06/11/17 ferrous sulfate 325 mg (65 mg iron) tablet,delayed release 325 mg PO BID tab 05/14/18 Cetirizine HCl [Zyrtec] 10 mg PO DAILY 06/01/18 Cholecalciferol (VIT D3) [Vitamin D3] 1,000 unit PO DAILY 06/01/18 Fenofibrate Nanocrystallized [Tricor] 145 mg PO DAILY 06/01/18 Losartan Potassium 100 mg PO DAILY 06/01/18 Multivitamin with Minerals [Multiple Vitamin] 1 ea PO DAILY 06/01/18 Ascorbic Acid [Vitamin C] 1,000 mg PO DAILY 07/21/18 Furosemide 40 mg PO BID 07/21/18 Potassium Chloride [Klor-Con M20] 20 meq PO BID 07/21/18 Pantoprazole Sodium [Protonix] 40 mg PO BID #60 tablet 07/24/18 Sucralfate [Carafate] 1 gm PO 4X/DAY #120 tablet 07/24/18 The following prescriptions were given: Pantoprazole Sodium [Protonix] 40 mg PO BID #60 tablet Sucralfate [Carafate] 1 gm PO 4X/DAY #120 tablet Primary Care Physician: Maryan Francis MD [STAFF PHYSICIAN] - Please follow up with your Primary Care Physician in: one week Test Results: Test results from this visit will be discussed in further detail at your follow-up appointment, if applicable. Please Follow Up With: Gloria Wallace MD When: one week Proposed Discharge Date: 07/24/18
[2018-07-24] MEDS: Furosemide 40 MG Tablet PO (11:25)
[2018-07-24] MEDS: Pantoprazole Sodium 40 MG Tablet PO (11:27)
--- NOTE | 2018-07-24 11:28 | DCINST_ITS ---
- Discharge Diagnoses Current Active Problems: Current Active and Chronic Problems (Last Reviewed 07/21/18 @ 12:10 by Saba Carlos) Iron deficiency anemia (Acute) Diastolic CHF (Chronic) Anemia (Acute) You will use the following diet at home:: Cardiac - soft diet for 1 week Your food should be the consistency of: Regular Your liquids should be the consistency of: Regular/Thin Discharge Activity: Return to Normal Activity Weight Bearing Status: Weight bearing as tolerated Call your doctor if you observe: Shortness of breath, Dizziness, - - dark, tarry stools Instructions: ED Anemia Type Not Specified, Upper GI Endoscopy, ED Bleed UGI Stable Allergies/Adverse Reactions: Allergies Penicillins Allergy (Severe, Verified 07/21/18 13:00) Hives swelling of tongue and throat codeine Adverse Reaction (Severe, Verified 07/21/18 13:00) HALLUCINATIONS morphine Adverse Reaction (Severe, Verified 07/21/18 13:00) HALLUCINATIONS Zthtttg-Ojz-Ngd Reductase Inhibitor Adverse Reaction (Severe, Verified 07/21/18 13:00) Other leg cramps Medications to take at Discharge Vit C/E/Zn/Coppr/Lutein/Zeaxan [Preservision Areds 2 Softgel] 1 ea PO BID 10/24/16 albuterol sulfate HFA 90 mcg/actuation aerosol inhaler 2 puff INHALATION Q6H PRN PRN 06/11/17 fluticasone 250 mcg-salmeterol 50 mcg/dose blistr powdr for inhalation 1 inh INHALATION Q12H 06/11/17 levothyroxine 50 mcg tablet 50 mcg PO DAILY tab 06/11/17 metformin ER 750 mg tablet,extended release 24 hr 750 mg PO DAILY 30 Days #30 06/11/17 ferrous sulfate 325 mg (65 mg iron) tablet,delayed release 325 mg PO BID tab 05/14/18 Cetirizine HCl [Zyrtec] 10 mg PO DAILY 06/01/18 Cholecalciferol (VIT D3) [Vitamin D3] 1,000 unit PO DAILY 06/01/18 Fenofibrate Nanocrystallized [Tricor] 145 mg PO DAILY 06/01/18 Losartan Potassium 100 mg PO DAILY 06/01/18 Multivitamin with Minerals [Multiple Vitamin] 1 ea PO DAILY 06/01/18 Ascorbic Acid [Vitamin C] 1,000 mg PO DAILY 07/21/18 Furosemide 40 mg PO BID 07/21/18 Potassium Chloride [Klor-Con M20] 20 meq PO BID 07/21/18 Pantoprazole Sodium [Protonix] 40 mg PO BID #60 tablet 07/24/18 Sucralfate [Carafate] 1 gm PO 4X/DAY #120 tablet 07/24/18 The following prescriptions were given: Pantoprazole Sodium [Protonix] 40 mg PO BID #60 tablet Sucralfate [Carafate] 1 gm PO 4X/DAY #120 tablet Primary Care Physician: Maryan Francis MD [STAFF PHYSICIAN] - Please follow up with your Primary Care Physician in: one week Test Results: Test results from this visit will be discussed in further detail at your follow- up appointment, if applicable. Please Follow Up With: Gloria Wallace MD When: one week Proposed Discharge Date: 07/24/18
--- NOTE | 2018-07-24 11:28 | PCM.DC.SUM ---
Discharge Date and Diagnosis Date of Admission: 07/21/18 Date of Discharge: 07/24/18 - Primary Discharge Diagnosis Active and Suspected Problems (Last Reviewed 07/21/18 @ 12:10 by Saba Carlos) Iron deficiency anemia (Acute) Anemia (Acute) duodenitis - Secondary Discharge Diagnosis Chronic Problems (Last Reviewed 07/21/18 @ 12:10 by Saba Carlos) Iron deficiency anemia due to chronic blood loss (Chronic) Diastolic CHF (Chronic) Obesity (Chronic) Hypertension (Chronic) Presence of cardiac pacemaker (Chronic ~01/10/15) Persistent atrial fibrillation (Chronic) History of radiofrequency ablation procedure for cardiac arrhythmia (Chronic ~01/10/15) AV Junction Ablation H/O mitral valve replacement (Chronic ~04/26/09) H/O aortic valve replacement (Chronic ~04/26/09) 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 Cardiomegaly with cardiac pacemaker and evidence of median sternotomy. 2. No acute pulmonary disease. There is resolution of the interstitial prominence seen on the prior examination. Electronically Signed: Wojciech Hassan DO at 20:47 EDT Tel [phone], Service support , general surgery Operations: None Procedures: EGD Summary of Care Provided: The patient is a 72 year old F with past medical history as listed which includes iron deficiency anemia, heart failure with preserved ejection fraction, bovine mitral and aortic valve replacement, paroxysmal A. fib as well as COPD. She was admitted to the ED from her oncologist office where she was being evaluated for fatigue. She had been admitted in May 2018 for anemia and had an EGD and colonoscopy because no source of bleeding was found. She was started on oral iron supplements and was referred to follow-up with hematology. However her fatigue worsened, with associated shortness of breath and nausea. Hb was found to be 6.9, and she also complained of black stools prior to admission, with associated 2-3+ LE edema. Hb was 6.9 on admission. She was admitted and managed for acute on chronic anemia and was transfused with 2 units of packed red blood cells. General surgery was consulted. She had an EGD done which showed bleeding duodenal erosion she had epinephrine injected. She received 2 units of packed red blood cells and hemoglobin went up to 9.9. She was started on IV Protonix 40 mg twice daily. Patient received a total of 4 units of packed red blood cells. She remained stable and hemoglobin was 10.4 on day of discharge. She was discharged on 07/24/2018 with a prescription for p.o. Protonix 40 mg daily twice daily as well as sucralfate. She is follow-up with her primary care doctor and general surgery. She is also to follow-up with her cardiothoracic surgeon at [facility] for aortic and mitral valve replacement. Patient seen and examined prior to discharge patient no complaints and felt well. Review of systems otherwise negative. Labs and vitals reviewed. She tolerated a soft diet. She is to continue with a soft diet for about a week and follow-up with general surgery and her PCP.] - Physical Exam General: Alert, Oriented x3, Cooperative HEENT: Atraumatic, PERRLA, EOMI, Normocephalic Oral: Moist Mucosa Neck: Supple, No JVD, Negative Carotid Bruits Lungs: Clear to auscultation, Normal air movement, No rhonchi, No wheeze, No rales Cardiovascular: Regular rate, Regular Rhythm, Normal S1, Normal S2, - - mechanical valve click in aortic and mitral valve areas Abdomen: Bowel Sounds Present, Soft, Non Tender, Non-Distended, No Hepato-splenomegaly Extremities: No clubbing, No cyanosis, No edema, Capillary Refill Less than 3 Seconds Skin: No rashes, No breakdown Musculoskeletal: No Tenderness to Palpation of Joints or Extremities Lymphatic: No Cervical, Supraclavicular, or Inguinal Adenopathy Neurological: Cranial nerves II-XII grossly intact, Neuro grossly intact, Motor Exam 5/5 strength throughout Psych/Mental Status: Normal Affect, Appropriate, Alert and oriented to time, place, person, mood and affect Vital Signs Temp Pulse Resp BP Pulse Ox 98.2 F 68 18 125/79 H 95 07/24/18 10:43 07/24/18 10:43 07/24/18 10:43 07/24/18 10:43 07/24/18 10:43 Oxygen Flow Rate (L/min) 1 Oxygen Delivery Method Room Air Weight: 223 lb Body Mass Index (BMI) 39.4 Intake and Output for Last 24 Hours 07/22/18 07/23/18 07/24/18 23:59 23:59 23:59 Intake Total 5157 / 5157 2799 / 2799 Output Total 1200 / 1200 Balance 3957 / 3957 2799 / 2799 Microbiology Past 72 Hours 07/21/18 20:58 Blood Culture - Preliminary Blood Culture (Wb) - Right Wrist No growth in 48 hours. 07/21/18 20:15 Urine Culture - Final Urine, Clean Catch Mixed Gram Positive Organisms 07/22/18 05:30 Stool Occult Blood (RAMSES) - Final Stool Occult Blood Positive Laboratory Tests Past 24 Hrs 07/21/18 07/23/18 07/24/18 13:30 15:15 07:08 WBC 11.3 H RBC 3.44 L Hgb 9.6 L 10.4 L Hct 31.2 L 34.3 L MCV 99.7 H MCH 30.2 MCHC 30.3 L RDW 21.2 H RDW Differential 72.2 H Plt Count 486 H MPV 9.5 Immature Gran % (Auto) 0.400 Neut % (Auto) 70.8 H Lymph % (Auto) 13.7 L [place] % (Auto) 11.8 H Eos % (Auto) 2.4 Baso % (Auto) 0.9 Absolute Neuts (auto) 8.0 H Absolute Lymphs (auto) 1.55 Total Counted Not Reportable Nucleated RBC % 0.5 Differential Comment SCANNED Hypochromasia 1+ Anisocytosis 2+ Microcytosis 1+ Macrocytosis 1+ Absolute Retic 0.06 Blood Type O NEGATIVE Antibody Screen NEGATIVE Crossmatch See Detail POC Glucose 07/24/18 07/23/18 07/23/18 06:41 21:05 16:21 POC Glucose 84 98 109 07/23/18 11:53 POC Glucose 139 H Discharge Diet: Soft diet, Low fat/ Low Cholesterol Discharge Activity: Return to Normal Activity Weight Bearing Status: Weight bearing as tolerated Call your doctor if you observe: Shortness of breath, Dizziness, - - dark, tarry stools Home Medications: Medications to take at Discharge Vit C/E/Zn/Coppr/Lutein/Zeaxan [Preservision Areds 2 Softgel] 1 ea PO BID 10/24/16 albuterol sulfate HFA 90 mcg/actuation aerosol inhaler 2 puff INHALATION Q6H PRN PRN 06/11/17 fluticasone 250 mcg-salmeterol 50 mcg/dose blistr powdr for inhalation 1 inh INHALATION Q12H 06/11/17 levothyroxine 50 mcg tablet 50 mcg PO DAILY tab 06/11/17 metformin ER 750 mg tablet,extended release 24 hr 750 mg PO DAILY 30 Days #30 06/11/17 ferrous sulfate 325 mg (65 mg iron) tablet,delayed release 325 mg PO BID tab 05/14/18 Cetirizine HCl [Zyrtec] 10 mg PO DAILY 06/01/18 Cholecalciferol (VIT D3) [Vitamin D3] 1,000 unit PO DAILY 06/01/18 Fenofibrate Nanocrystallized [Tricor] 145 mg PO DAILY 06/01/18 Losartan Potassium 100 mg PO DAILY 06/01/18 Multivitamin with Minerals [Multiple Vitamin] 1 ea PO DAILY 06/01/18 Ascorbic Acid [Vitamin C] 1,000 mg PO DAILY 07/21/18 Furosemide 40 mg PO BID 07/21/18 Potassium Chloride [Klor-Con M20] 20 meq PO BID 07/21/18 Pantoprazole Sodium [Protonix] 40 mg PO BID #60 tablet 07/24/18 Sucralfate [Carafate] 1 gm PO 4X/DAY #120 tablet 07/24/18 Following Prescrptions Were Given to Patient: Pantoprazole Sodium [Protonix] 40 mg PO BID #60 tablet Sucralfate [Carafate] 1 gm PO 4X/DAY #120 tablet Primary Care Physician: Maryan Francis MD [STAFF PHYSICIAN] - Please follow up with your Primary Care Physician in: one week Please Follow Up With: Gloria Wallace MD When: one week Please Follow Up With: Lalita Stroud MD When: 1 week Patient Instructions: Upper GI Endoscopy, ED Anemia Type Not Specified, ED Bleed UGI Stable Disposition: Home Minutes spent on discharge:: 40 Patient Condition:: Stable Medical Necessity - Tobacco Use Smoking Status: Former smoker Tobacco Use: Non-smoker Meaningful Use Info Meaningful Use Diagnoses (Choose all that apply): None applicable Code Visit Inpatient E&M: 87719 Disch Hosp
[2018-07-24 11:51] LABS: Bedside Glucose 113 mg/dL (70-110)
--- NOTE | 2018-07-27 15:25 | CASEMGMT ---
Addendum entered by Zuleika Chi 07/27/18 16:00: Pt called this RN SIRIA back at this time and states that she is doing 'much better' since discharge. Pt states no questions regarding discharge instructions at this time. Pt states question regarding carafate and this RN SIRIA referred pt to speak with Dr. Wallace's office regarding same or PCP, voices understanding. Pt states has 2 of 3 f/u appt's scheduled for next week. Pt states only suggestion for [facility] is better meals for ED pt's. Pt voices no further questions/concerns/needs at this time. Arabella PARRA CM Original Note: RN SIRIA Discharge F/U Phone Call LACE: 13 Strata: 4 Discharge date: 07/24/18 Call date: 07/27/18 Call time: [phone] Attempted to reach pt without success at this time, message left for pt to call this RN SIRIA back if/when able. Arabella PARRA CM Admission dx: Acute on chronic anemia, GI bleed
== END 2018-07-24 13:17 | disposition home or self-care (01) | DRG 811 ==
LOC: ED 13:39 → MS3 18:02 → PCU 07-22 15:12
PROVIDERS: Anesthesiology; Internal Medicine; Surgery; Admitting Provider Family Medicine; Emergency Provider Emergency Medicine; Family Provider Family Medicine; PCP Family Medicine; Referring Provider Family Medicine; Visit Provider Student in an Organized Health Care Education/Training Program
PROC: 0DJ08ZZ Inspection of Upper Intestinal Tract, Via Natural or Artificial Opening Endoscopic (ICD-10-PCS; CPT 43235; principal; 2018-07-22 13:10)
DX: D62 Acute posthemorrhagic anemia (principal); K29.81 Duodenitis with bleeding; I48.1 Persistent atrial fibrillation; I13.0 Hypertensive heart and chronic kidney disease with heart failure and stage 1 through stage 4 chronic kidney disease, or unspecified chronic kidney disease; I50.30 Unspecified diastolic (congestive) heart failure; E78.5 Hyperlipidemia, unspecified; E11.9 Type 2 diabetes mellitus without complications; E03.9 Hypothyroidism, unspecified; E11.22 Type 2 diabetes mellitus with diabetic chronic kidney disease; N18.3 Chronic kidney disease, stage 3 (moderate); J44.9 Chronic obstructive pulmonary disease, unspecified; E66.9 Obesity, unspecified; Z87.891 Personal history of nicotine dependence; Z95.3 Presence of xenogenic heart valve; Z68.39 Body mass index [BMI] 39.0-39.9, adult; Z79.84 Long term (current) use of oral hypoglycemic drugs; Z95.0 Presence of cardiac pacemaker
CPT/HCPCS: 36415; 71046; 80048; 80053; 81001; 82274; 82728; 82962; 83036; 83540; 83550; 83735; 84100; 84443; 85014; 85018; 85025; 85610; 85730; 86644; 86850; 86900; 86920; 86922; 87040; 87086; 87088; 93005; 94640; 99285; J1756; J7030; J7040; P9016; A4216; J1940; J2405; J3490

== ENCOUNTER → 2018-07-27 13:36 | Outpatient (CLI) | payer MEDICARE, SELFPAY ==
[2018-07-01 14:16] VITALS: BMI 36.8
[2018-07-27 13:06] VITALS: BMI 37.2
--- NOTE | 2018-07-27 13:40 | CT_ITS ---
STUDY: LOW DOSE CT LUNG CANCER SCREENING REASON FOR EXAM: Female, 72 years old. 86 pack-year smoking history. RADIATION DOSAGE (If Supplied By Facility): CTDIvol = ( 3.40 ) mGy, DLP = ( 107.21 ) mGycm TECHNIQUE: No contrast was administered. Low dose technique was utilized (average mAS-38 and kVp 120). 1.25 mm axial source images with a slice interval of 1.25-mm were reconstructed in lung windows. 2.5 mm axial source images with a slice interval of 2.5-mm were reconstructed in lung windows. 5.0 mm axial source images with a slice interval of 5.0-mm were reconstructed in soft tissue windows. Nodule measured using lung windows on PACS and/or independent workstation with automated measurement of minimum and maximum diameter. Nodule measurement reported as average diameter rounded to the nearest whole number. Growth is defined as an increase ins size of greater than 1.5 mm. COMPARISON: None. NODULES: There is a 1 cm x 8.6 mm noncalcified nodule in the posterior medial segment of the right lower lobe as seen on axial image #155 and coronal image #63. Calcified granuloma in the left lower lobe measuring 4 mm. Emphysema: Diffuse emphysematous changes with cystic formation worse in the upper lobes. Endobronchial lesion: Aorta: Atherosclerotic calcifications. Coronary arteries: Coronary artery calcification. Heart: Prior CABG. Cardiomegaly. Mediastinal nodes: Calcified mediastinal lymph nodes and left hilar lymph nodes. Other chest and abdominal findings: CT/Low Dose CT Lung Screening IMPRESSION: Lung-RADS category 4A - Screening at 3 months with LDCT or evaluation with PET/CT may be used. IMPORTANT NOTES FOR USE: ACR Lung-RADS Version 1.0 Assessment Categories Release Date: July 25, 2013 Category: Coded 0-4 bases on nodule(s) with highest degree of suspicion. Negative screen is defined as categories 1 and 2; a positive screen is defined as categories 3 and 4. Category 3 and 4A nodules that are unchanged on interval CT should be coded as category 2, and individuals returned to screening in 12 months. Category 4X: Category 3 or 4 nodules with additional imaging findings that increase the suspicion of lung cancer, such as spiculation, GGN that doubles in size in 1 year, enlarged lymph notes, etc. Category Modifiers: S (significant finding unrelated to lung cancer) and C (prior history of treated lung cancer) may be added to the 0-4 Lung-RADS Electronically Signed: Nate Walker, at 14:34 EDT , Service support ,
== END ==
PROVIDERS: Family Provider Family Medicine; PCP Family Medicine; Referring Provider Nurse Practitioner Family; Visit Provider Nurse Practitioner Family
DX: Z12.2 Encounter for screening for malignant neoplasm of respiratory organs (principal); Z87.891 Personal history of nicotine dependence
CPT/HCPCS: G0297

== ENCOUNTER 2018-07-31 21:54 | Inpatient (IN) | payer MEDICARE, OTHER, SELFPAY ==
[2018-07-31 21:54] VITALS: BMI 39.4
[2018-07-31 21:57] VITALS: BP 123/61; PULSE 61; RESP 15; TEMP 36.7; O2SAT 95; BMI 37.7
--- NOTE | 2018-07-31 22:41 | RAD_ITS ---
STUDY: X-RAY CHEST REASON FOR EXAM: Female, 72 years old. SOB and weakness TECHNIQUE: Single frontal view of the chest. COMPARISON: 07/21/2018 FINDINGS: Single chamber pacemaker on the left. Median sternotomy wires. The lungs are clear and expanded. There is no demonstrated pleural abnormality. Stable cardiomediastinal silhouette. Normal mediastinum and derek. Normal visualized pulmonary arteries. Normal visualized aortic arch and descending thoracic aorta. Normal visualized thoracic spine. Normal visualized ribs, clavicles, and shoulders. There is no demonstrated abnormality of the visualized soft tissue structures of the upper abdomen. RAD/Chest 1 View (Portable) IMPRESSION: No acute pulmonary findings. Electronically Signed: Ubaldo Brown MD at 23:02 EDT Tel , Service support ,
--- NOTE | 2018-07-31 22:42 | EKG12_ITS ---
Test Reason : GEN ILL Blood Pressure : / mmHG Vent. Rate : 061 BPM Atrial Rate : 061 BPM P-R Int : 000 ms QRS Dur : 160 ms QT Int : 506 ms P-R-T Axes : 000 -75 096 degrees QTc Int : 509 ms Ventricular-paced rhythm Abnormal ECG Confirmed by JOLIE VAUGHN, LESLEY ([id number]), primer expeditor and drier CHAPIS WALLIS ([id number]) on 08/03/2018 1:26:46 PM Referred By: Merlin Espinosa Confirmed By:LESLEY DAVE MD
--- NOTE | 2018-07-31 22:52 | ED.DCSUM_ITS ---
- ER Visit Summary Date of Service: 07/31/18 Chief Complaint: Shortness of breath, dizziness History of Present Illness: The patient is a 72 F presenting feeling like her hemoglobin is low. She states the symptoms started on . She has had shortness of breath and dizziness. She feels similar to when she was admitted recently for same complaint. She was admitted from July 21- July 24. She received blood transfusions and EGD during that admission. She states her stool has been brown, dark, and black intermittently. She is on iron supplements. She denies chest pain. Denies syncope. Denies other complaints. She is not on anticoagulants. Physical Examination: Vitals are stable. Patient is afebrile. Alert no acute distress. HEENT exam is unremarkable. Neck is supple. Lungs are clear and equal bilaterally. Heart is regular rate and rhythm. Abdomen is soft nontender nondistended. No guarding or rebound Extremities are unremarkable. Skin is warm and dry. No focal neurologic deficit. Remainder of exam is unremarkable. Emergency Department Course and Treatment: EKG is paced at rate of 61. CBC shows white count 17.8, hemoglobin 7.0, platelets 582. Chemistries show glucose 173, BUN 28, creatinine 1.05. INR 1.3. Troponin 0.029. Patient is typed and crossed for 2 units packed red blood cells. Discussed with Dr Terry and hospitalist for admission. Disposition: Admission Impression: Symptomatic anemia This note was generated with [employer] dictation software. It may contain incorrect words, spelling, and punctuation that were not noted in review of the chart prior to signing ED Disposition - Plan for ED Patient: Disposition: Acute Care [facility]
[2018-07-31 23:01] LABS: Absolute Lymphocyte Count 1.32 X10^3/ul (0.83-4.51); Absolute Neutrophil Count 13.4 X10^3/uL (2.0-7.7); Basophil# 0.11 X10^3/uL; Basophil% 0.6 % (0-1); Eosinophil# 0.15 X10^3/uL; Eosinophils% 0.8 % (0-5); Hematocrit 23.5 % (37-47); Lymphocyte # 1.32 X10^3/ul (4.0); Lymphocyte % 7.4 % (19-41); Mean Corp Hgb Conc 29.8 g/gl (32-36); Mean Corpuscular Hgb 30.3 pg (27.0-32.0); Mean Corpuscular Volume 101.7 fL (81-99); Mean Platelet Vol. 9.2 fl (6.2-12.0); Monocyte# 2.64 X10^3/uL; Monocyte% 14.8 % (0-10); Neutrophil # 13.37 X10^3/uL (2.7-7.7); Neutrophil % 75.2 % (47-70); Platelet Count 582 K/mm3 (150-450); RBC Distribution Width CV 19.5 % (11.6-14.6); RBC Distribution Width SD 69.8 fl (35.1-43.9); Red Blood Count 2.31 M/mm3 (4.2-5.4); White Blood Count 17.8 K/mm3 (4.4-11.0)
[2018-07-31 23:02] LABS: Differential Indicated SCAN CRITERIA MET; POSITIVE COUNT NO; POSITIVE DIFFERENTIAL YES; POSITIVE MORPHOLOGY YES
[2018-07-31 23:07] LABS: International Normalized Ratio 1.3; Prothrombin Time (Protime)PT. 15.6 SECONDS (11.7-14.9)
[2018-07-31 23:08] LABS: Partial Thromboplast Time 23.5 Seconds (24.1-36.2)
[2018-07-31 23:12] LABS: Anion Gap 8 (5-15); BUN 28 mg/dL (7-18); BUN/Creat Ratio 26.7 RATIO (10-20); Calcium,Total 8.5 mg/dL (8.5-10.1); Chloride 101 mmol/L (98-107); Creatinine, Serum 1.05 mg/dL (0.55-1.02); EST Glomerular Filtration Rate 55 mL/min (>60); Est Glom Filt Rate - Afr Amer 66 mL/min (>60); Estimated Creatinine Clearance 39.47 ml/min; Glucose 173 mg/dL (74-106); Potassium 3.6 mmol/L (3.5-5.1); Sodium Level 135 mmol/L (136-145)
[2018-07-31 23:20] LABS: Differential Comment SCANNED
--- NOTE | 2018-07-31 23:40 | HP.PCM_ITS ---
Problem List (1) Acute blood loss anemia Status: Acute (2) Diastolic CHF Status: Chronic (3) Obesity Status: Chronic (4) Hypertension Status: Chronic Qualifiers: (5) Presence of cardiac pacemaker Status: Chronic (6) H/O mitral valve replacement Status: Chronic (7) H/O aortic valve replacement Status: Chronic History of Present Illness Date of Admission: 07/31/18 Chief Complaint: shortness of breath The patient is a 72 year old F with a significant history of diastolic heart failure; cardiac pacemaker; mitral valve replacement; aortic valve replacement; obesity; paroxysmal A. fib who was admitted and discharged on 07/21/2018 and 07/24/2018 respectively because of acute blood loss anemia and was found to have a bleeding duodenal ulcer that was injected with epinephrine presenting with shortness of breath that she thinks is reminiscent of her previous episode where she was found to have acute blood loss anemia. At her last visit Dr. Wallace, General Surgeon did EGD and injected epinephrine as stated above. Subsequently she was placed on soft diet and she was supposed to resume regular diet on the same day of this presentation. She was placed on a twice a day of Protonix; and sucralfate before each meal. Her aspirin was stopped for some days and resumed later. Associated with her symptoms is nausea and vomiting. She usually vomits when she talks. Also she has fatigue. She reports about 10 bowel movements on the same day of presentation. With her last 2 bowel movements her bowels were loose. Also some of her stools are black; others brown and the last two bowel movements loose as described above. Importantly she take iron supplements that she thinks it may be contributing to the change in color of her stools. At the emergency department her hemoglobin was found to be 7.0 and 2 units of blood was ordered. Emergency department doctor discussed the case with general surgery on-call. Per emergency department doctor the case was discussed with Dr. Jesús Terry and it is okay to admit the patient. 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) Medical History: Medical History (Last Reviewed 08/01/18 @ 00:38 by Merlin Espinosa MD) Obesity (Chronic) E66.9 Hypertension (Chronic) I10 Persistent atrial fibrillation (Chronic) I48.1 Rheumatic mitral stenosis with insufficiency (Chronic) I05.2 Rheumatic aortic stenosis with insufficiency (Chronic) I06.2 cataract removal left eye DVT of lower extremity, bilateral I82.403 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, liver and left eye Hypothyroidism E03.9 Osteoarthritis M19.90 Rheumatic fever I00 Sleep apnea G47.30 History of hysterectomy Z90.710 Allergies Penicillins Allergy (Severe, Verified 07/31/18 22:01) Hives swelling of tongue and throat codeine Adverse Reaction (Severe, Verified 07/31/18 22:01) HALLUCINATIONS morphine Adverse Reaction (Severe, Verified 07/31/18 22:01) HALLUCINATIONS Barmeah-Hmc-Bzx Reductase Inhibitor Adverse Reaction (Severe, Verified 07/31/18 22:01) Other leg cramps Home Medications: Ambulatory Orders Medication Instructions Recorded Vit C/E/Zn/Coppr/Lutein/Zeaxan 1 ea PO BID 10/24/16 [Preservision Areds 2 Softgel] albuterol sulfate HFA 90 2 puff INHALATION Q6H PRN PRN 06/11/17 mcg/actuation aerosol inhaler fluticasone 250 mcg-salmeterol 50 1 inh INHALATION Q12H 06/11/17 mcg/dose blistr powdr for inhalation levothyroxine 50 mcg tablet 50 mcg PO DAILY tab 06/11/17 metformin ER 750 mg 750 mg PO DAILY 30 Days #30 06/11/17 tablet,extended release 24 hr ferrous sulfate 325 mg (65 mg 325 mg PO BID tab 05/14/18 iron) tablet,delayed release Cetirizine HCl [Zyrtec] 10 mg PO DAILY 06/01/18 Cholecalciferol (VIT D3) [Vitamin 1,000 unit PO DAILY 06/01/18 D3] Fenofibrate Nanocrystallized 145 mg PO DAILY 06/01/18 [Tricor] Losartan Potassium 100 mg PO DAILY 06/01/18 Multivitamin with Minerals 1 ea PO DAILY 06/01/18 [Multiple Vitamin] Ascorbic Acid [Vitamin C] 1,000 mg PO DAILY 07/21/18 Furosemide 40 mg PO DAILY 07/21/18 Potassium Chloride [Klor-Con M20] 20 meq PO BID 07/21/18 Pantoprazole Sodium [Protonix] 40 mg PO BID #60 tab 07/24/18 Sucralfate [Carafate] 1 gm PO 4X/DAY #120 tab 07/24/18 Aspirin [Aspirin, Baby] 81 mg PO DAILY@0800 07/31/18 Surgical History: Surgical History (Last Reviewed 08/01/18 @ 00:31 by Merlin Espinosa MD) Presence of cardiac pacemaker (Chronic) Onset Date: ~01/10/15 Z95.0 History of radiofrequency ablation procedure for cardiac arrhythmia (Chronic) Onset Date: ~01/10/15 Z98.890 AV Junction Ablation H/O mitral valve replacement (Chronic) Onset Date: ~04/26/09 Z95.2 H/O aortic valve replacement (Chronic) Onset Date: ~04/26/09 Z95.2 History of appendectomy Z90.49 History of tonsillectomy and adenoidectomy Z98.890 History of removal of cyst Z98.890 right breast Hx of cholecystectomy Z90.49 tracheostomy Onset Date: ~12/03/072007 Surgical History: - - Aortic and mitral valve replacement Psychiatric History: 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 psych hx COGNOS ARCHITECT History: 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 COGNOS ARCHITECT history Lives: Alone Smoking Status: Former smoker Alcohol: Occasional - *Family History Maternal Family History: Family History (Last Reviewed 08/01/18 @ 00:32 by Merlin Espinosa MD) Brother Kidney disease Father Heart disease Prostate cancer Grandmother Breast cancer History Items: - - anemia Review of Systems Constitutional: Reports: Anorexia, Fatigue. Denies: Chills, Fever, Weight Change HEENT: Denies: Head Aches, Sinus Congestion, Sinus Drainage Cardiovascular: Reports: Edema - Bilateral lower extremities. Denies: Chest Pain, Palpitations Respiratory: Reports: Shortness of breath upon exertion. Denies: Cough, Shortness of breath at rest, Sputum production Gastrointestinal: Denies: Abdominal Pain, Nausea, Vomiting Genitourinary: Denies: Dysuria Musculoskeletal: Denies: Joint Pain, Joint Tenderness Skin: Denies: Rash, Wounds Neurological: Denies: Numbness, Tingling, Focal weakness Psychiatric: Denies: Anxiety, Depression, Homicidal Ideations, Suicidal Ideations Hematologic/ Lymphatic: Denies: Easy Bruising, Easy Bleeding VTE Information - Inpt Only VTE Present on Admission: No VTE Mechan Device Prophylaxis: SCD's VTE Pharm Prophylaxis ordered?: No - Physical Exam General: Alert, Oriented x3, Cooperative HEENT: Atraumatic, PERRLA, EOMI, Normocephalic Neck: Supple, No JVD, Negative Carotid Bruits Lungs: Diminished - Superior posterior lung hudson. Cardiovascular: Murmur Abdomen: Bowel Sounds Present, Soft, Non Tender, Obese Extremities: Capillary Refill Less than 3 Seconds, Edema - Bilateral lower extremities; right worse than left. Skin: No rashes, No breakdown Musculoskeletal: No Tenderness to Palpation of Joints or Extremities Neurological: Neuro grossly intact Psych/Mental Status: Normal Affect, Appropriate Vital Signs Temp Pulse Resp BP Pulse Ox 98.1 F 61 15 123/61 H 95 07/31/18 21:57 07/31/18 21:57 07/31/18 21:57 07/31/18 21:57 07/31/18 21:57 Oxygen Delivery Method Room Air Weight: 96.615 kg Body Mass Index (BMI) 37.7 Laboratory Tests Past 24 Hrs 07/31/18 07/31/18 07/31/18 22:23 22:23 22:23 WBC 17.8 H RBC 2.31 L Hgb 7.0 L Hct 23.5 L MCV 101.7 H MCH 30.3 MCHC 29.8 L RDW 19.5 H RDW Differential 69.8 H Plt Count 582 H MPV 9.2 Immature Gran % (Auto) 1.200 H Neut % (Auto) 75.2 H Lymph % (Auto) 7.4 L [place] % (Auto) 14.8 H Eos % (Auto) 0.8 Baso % (Auto) 0.6 Absolute Neuts (auto) 13.4 H Absolute Lymphs (auto) 1.32 Total Counted Not Reportable Differential Comment SCANNED Diff Path Review July PT 15.6 H INR 1.3 APTT 23.5 L Sodium 135 L Potassium 3.6 Chloride 101 Carbon Dioxide 26.0 Anion Gap 8 BUN 28 H Creatinine 1.05 H Estim Creat Clear Calc 39.47 Est GFR (MDRD) Af Amer 66 Est GFR (MDRD) Non-Af 55 L BUN/Creatinine Ratio 26.7 H Glucose 173 H Calcium 8.5 Troponin I 0.029 Assessment/Plan All Active Problems (Last Reviewed 08/01/18 @ 00:31 by Merlin Espinosa MD) Dyspnea on exertion (Acute) Acute blood loss anemia (Acute) Upper GI bleed (Acute) Epistaxis (Acute) Elevated troponin (Acute) Iron deficiency anemia (Acute) Anemia (Acute) The patient is a 72 year old F with a significant history of diastolic heart failure; cardiac pacemaker; mitral valve replacement; aortic valve replacement; obesity; paroxysmal A. fib who was admitted and discharged on 07/21/2018 and 07/24/2018 respectively because of acute blood loss anemia and was found to have a bleeding duodenal ulcer that was injected with epinephrine presenting with shortness of breath that she thinks is reminiscent of her previous episode where she was found to have acute blood loss anemia; and now also with anemia consistent with likely rebleed for duodenal ulcer. Acute blood loss anemia Likely secondary to repeat of duodenal ulcer. Okay to administer 2 units of packed red blood cells ordered emergency department. On the order to repeat H&H 1 hour after administration of saphenous of blood. Trend blood pressures. Importantly patient is on Lasix 40 mg p.o. at home. We will hold p.o. Lasix for now. Consider giving IV Lasix after blood administration if her blood pressure can tolerate. We will hold aspirin at this time. We will keep patient n.p.o. and hold all p.o. medication for now except home p.o. Synthroid which will be continued at this time. Dr. Jesús Terry, General Surgery consulted. COPD Shortness of breath at this time is likely due to anemia. However will order scheduled DuoNeb. PRN albuterol continued Home fluticasone inhalation continued. Aortic and mitral valve replacement. Reportedly patient has bovine aortic and mitral valve that is due for replacement. Patient follows up with Dr. Smith, cardiology and has been referred to cardiothor[facility] surgery at [facility] for possible repla cements. Echocardiogram on 05/19/2018 was consistent with moderate mitral valve stenosis. Bioprosthetic mitral valve. Severe aortic stenosis. Bioprosthetic aortic valve. Diabetes mellitus On presentation her blood glucose was within goal. Home metformin held Patient is n.p.o. for possible EGD. We will put patient on Accu-Cheks every 6 hours with correction scale insulin Diastolic heart failure Echocardiogram on 05/19/2018 showed left ventricular ejection fraction of 60%. Pulmonary artery systolic pressure was 40. Peak aortic valve gradient was 90. Mean aortic valve gradient was 55. Severe aortic stenosis. Moderate mitral valve stenosis. On home Lasix. We will hold Lasix for now as we trend her blood pressure in the setting of acute blood loss anemia. Consider IV Lasix if her blood pressure remains stable after receiving 2 units of blood that has been ordered. On home potassium supplementation. Her potassium on admission was 3.6. We will hold further potassium at this time as Lasix has been held. Trend BMP. Hypertension On presentation her blood pressure was within goal On home losartan; and furosemide has been held secondary to probable GI bleed Trend blood pressures. Hypothyroidism Synthroid continued. DVT prophylaxis SCD for now No chemical chemoprophylaxis because of likely GI bleed. . Code Visit Inpatient E&M: 17274 Init Hosp L3
[2018-08-01] VITALS (30 sets, daily range): BP systolic 90–139; BP diastolic 46–100; PULSE 60–69; RESP 16–20; TEMP 36.6–37.4; O2SAT 93–98; BMI 38.4
[2018-08-01] MEDS: Ondansetron 4 MG/2 ML Vial IV
[2018-08-01] MEDS: 0.9% NaCl Peripheral Flush Adult/Peds IV ×2 (01:10→01:17)
[2018-08-01 05:56] LABS: Bedside Glucose 118 mg/dL (70-110)
--- NOTE | 2018-08-01 09:05 | PCM.CONS.GEN ---
Problem List (1) Upper GI bleed Status: Acute Reason for Consult Date of Consultation: 08/01/18 Reason for Consultation: Upper GI bleed History of Present Illness: The patient is a 72 year old F here with anemia. The patient had EGD in June and May of this year for similar symptoms. In May EGD did not reveal anything and in June EGD revealed an erythematous area in the duodenum which was slowly bleeding and it was injected with epinephrine. She was doing fine and had a repeat hemoglobin this Thursday of 9.2 but last night she started developing dyspnea and shortness of breath and presented to the emergency room. She says that she always has black stools due to the high amount of iron she is taking. She does not have any nausea or vomiting. She has no abdominal pain. She has been taking Carafate and PPI at home since her last admission. She had H. pylori testing during her last admission which was negative. 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) Medical History: Medical History (Last Reviewed 08/01/18 @ 00:38 by Merlin Espinosa MD) Obesity (Chronic) E66.9 Hypertension (Chronic) I10 Persistent atrial fibrillation (Chronic) I48.1 Rheumatic mitral stenosis with insufficiency (Chronic) I05.2 Rheumatic aortic stenosis with insufficiency (Chronic) I06.2 cataract removal left eye DVT of lower extremity, bilateral I82.403 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, liver and left eye Hypothyroidism E03.9 Osteoarthritis M19.90 Rheumatic fever I00 Sleep apnea G47.30 History of hysterectomy Z90.710 Allergies Penicillins Allergy (Severe, Verified 07/31/18 22:01) Hives swelling of tongue and throat codeine Adverse Reaction (Severe, Verified 07/31/18 22:01) HALLUCINATIONS morphine Adverse Reaction (Severe, Verified 07/31/18 22:01) HALLUCINATIONS Tojtchc-Rsl-Sbn Reductase Inhibitor Adverse Reaction (Severe, Verified 07/31/18 22:01) Other leg cramps Home Medications: Ambulatory Orders Medication Instructions Recorded Vit C/E/Zn/Coppr/Lutein/Zeaxan 1 ea PO BID 10/24/16 [Preservision Areds 2 Softgel] albuterol sulfate HFA 90 2 puff INHALATION Q6H PRN PRN 06/11/17 mcg/actuation aerosol inhaler fluticasone 250 mcg-salmeterol 50 1 inh INHALATION Q12H 06/11/17 mcg/dose blistr powdr for inhalation levothyroxine 50 mcg tablet 50 mcg PO DAILY tab 06/11/17 metformin ER 750 mg 750 mg PO DAILY 30 Days #30 06/11/17 tablet,extended release 24 hr ferrous sulfate 325 mg (65 mg 325 mg PO BID tab 05/14/18 iron) tablet,delayed release Cetirizine HCl [Zyrtec] 10 mg PO DAILY 06/01/18 Cholecalciferol (VIT D3) [Vitamin 1,000 unit PO DAILY 06/01/18 D3] Fenofibrate Nanocrystallized 145 mg PO DAILY 06/01/18 [Tricor] Losartan Potassium 100 mg PO DAILY 06/01/18 Multivitamin with Minerals 1 ea PO DAILY 06/01/18 [Multiple Vitamin] Ascorbic Acid [Vitamin C] 1,000 mg PO DAILY 07/21/18 Furosemide 40 mg PO DAILY 07/21/18 Potassium Chloride [Klor-Con M20] 20 meq PO BID 07/21/18 Pantoprazole Sodium [Protonix] 40 mg PO BID #60 tab 07/24/18 Sucralfate [Carafate] 1 gm PO 4X/DAY #120 tab 07/24/18 Aspirin [Aspirin, Baby] 81 mg PO DAILY@2200 07/31/18 Surgical History: Surgical History (Last Reviewed 08/01/18 @ 00:31 by Merlin Espinosa MD) Presence of cardiac pacemaker (Chronic) Onset Date: ~01/10/15 Z95.0 History of radiofrequency ablation procedure for cardiac arrhythmia (Chronic) Onset Date: ~01/10/15 Z98.890 AV Junction Ablation H/O mitral valve replacement (Chronic) Onset Date: ~04/26/09 Z95.2 H/O aortic valve replacement (Chronic) Onset Date: ~04/26/09 Z95.2 History of appendectomy Z90.49 History of tonsillectomy and adenoidectomy Z98.890 History of removal of cyst Z98.890 right breast Hx of cholecystectomy Z90.49 tracheostomy Onset Date: ~12/03/072007 Surgical History: - - Aortic and mitral valve replacement Psychiatric History: 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 psych hx 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 Denies: Cough Gastrointestinal: Reports: Melena. Denies: Abdominal Pain, Nausea, Vomiting Genitourinary: Denies: Dysuria Musculoskeletal: Denies: Joint Tenderness Skin: Denies: Dryness Hematologic/ Lymphatic: Reports: Anemia - Physical Exam General: Alert, Oriented x3, Cooperative, No apparent distress HEENT: Atraumatic, PERRLA Neck: No JVD Lungs: Normal air movement Cardiovascular: Regular rate, Regular Rhythm Abdomen: Soft, Non Tender, Non-Distended Vital Signs Temp Pulse Resp BP Pulse Ox 98.7 F 60 16 130/55 H 93 08/01/18 08:40 08/01/18 08:40 08/01/18 08:40 08/01/18 08:40 08/01/18 08:40 Oxygen Flow Rate (L/min) 2 Oxygen Delivery Method Room Air Weight: 216 lb 11.43 oz Body Mass Index (BMI) 38.4 Intake and Output for Last 24 Hours 07/30/18 07/31/18 08/01/18 23:59 23:59 23:59 Intake Total 400 / 400 Balance 400 / 400 Laboratory Tests Past 24 Hrs 07/31/18 07/31/18 07/31/18 22:23 22:23 22:23 WBC 17.8 H RBC 2.31 L Hgb 7.0 L Hct 23.5 L MCV 101.7 H MCH 30.3 MCHC 29.8 L RDW 19.5 H RDW Differential 69.8 H Plt Count 582 H MPV 9.2 Immature Gran % (Auto) 1.200 H Neut % (Auto) 75.2 H Lymph % (Auto) 7.4 L [place] % (Auto) 14.8 H Eos % (Auto) 0.8 Baso % (Auto) 0.6 Absolute Neuts (auto) 13.4 H Absolute Lymphs (auto) 1.32 Total Counted Not Reportable Differential Comment SCANNED Diff Path Review May foll PT 15.6 H INR 1.3 APTT 23.5 L Sodium 135 L Potassium 3.6 Chloride 101 Carbon Dioxide 26.0 Anion Gap 8 BUN 28 H Creatinine 1.05 H Estim Creat Clear Calc 39.47 Est GFR (MDRD) Af Amer 66 Est GFR (MDRD) Non-Af 55 L BUN/Creatinine Ratio 26.7 H Glucose 173 H Calcium 8.5 Troponin I 0.029 Blood Type Antibody Screen Crossmatch 07/31/18 22:23 WBC RBC Hgb Hct MCV MCH MCHC RDW RDW Differential Plt Count MPV Immature Gran % (Auto) Neut % (Auto) Lymph % (Auto) [place] % (Auto) Eos % (Auto) Baso % (Auto) Absolute Neuts (auto) Absolute Lymphs (auto) Total Counted Differential Comment Diff Path Review PT INR APTT Sodium Potassium Chloride Carbon Dioxide Anion Gap BUN Creatinine Estim Creat Clear Calc Est GFR (MDRD) Af Amer Est GFR (MDRD) Non-Af BUN/Creatinine Ratio Glucose Calcium Troponin I Blood Type O NEGATIVE Antibody Screen NEGATIVE Crossmatch See Detail POC Glucose 08/01/18 05:20 POC Glucose 118 H Assessment/Plan All Active Problems (Last Reviewed 08/01/18 @ 00:38 by Merlin Espinosa MD) Dyspnea on exertion (Acute) Acute blood loss anemia (Acute) Upper GI bleed (Acute) Epistaxis (Acute) Elevated troponin (Acute) Iron deficiency anemia (Acute) Anemia (Acute) 72-year-old female with anemia and probable upper GI bleed 1. Patient had hemoglobin of 9.2 this Thursday which has now dropped to 7. She describes black stools that she always has due to her iron supplementation. She does not describe any nausea or vomiting or diarrhea. No gross blood in the stool. Given the fact that she has acute anemia with blood loss since last week and a source of upper GI bleed on her last EGD I would recommend taking a look today to see if there is any bleed that can be stopped. Capsule endoscopy was recommended the patient by Dr. Francis but this was not done due to the patient's insurance not paying in her not being able to find a place to do this. Patient received 2 units of blood. 2. I explained endoscopy in detail to the patient. I explained the risks including but not limited to stroke or heart attack with anesthesia, perforation of the GI tract, bleeding, infection. I explained that any of these could necessitate further emergency surgery. The patient understands and all questions were answered sufficiently. The patient wishes to proceed with procedure. Jesús Terry MD Pager: [facility] [address] [place] [address], [address] [place] [address] Office:
--- NOTE | 2018-08-01 09:09 | CON.PCM_ITS ---
Problem List (1) Upper GI bleed Status: Acute Reason for Consult Date of Consultation: 08/01/18 Reason for Consultation: Upper GI bleed History of Present Illness: The patient is a 72 year old F here with anemia. The patient had EGD in June and May of this year for similar symptoms. In May EGD did not reveal anything and in June EGD revealed an erythematous area in the duodenum which was slowly bleeding and it was injected with epinephrine. She was doing fine and had a repeat hemoglobin this Thursday of 9.2 but last night she started developing dyspnea and shortness of breath and presented to the emergency room. She says that she always has black stools due to the high amount of iron she is taking. She does not have any nausea or vomiting. She has no abdominal pain. She has been taking Carafate and PPI at home since her last admission. She had H. pylori testing during her last admission which was negative. 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) Medical History: Medical History (Last Reviewed 08/01/18 @ 00:38 by Merlin Espinosa MD) Obesity (Chronic) E66.9 Hypertension (Chronic) I10 Persistent atrial fibrillation (Chronic) I48.1 Rheumatic mitral stenosis with insufficiency (Chronic) I05.2 Rheumatic aortic stenosis with insufficiency (Chronic) I06.2 cataract removal left eye DVT of lower extremity, bilateral I82.403 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, liver and left eye Hypothyroidism E03.9 Osteoarthritis M19.90 Rheumatic fever I00 Sleep apnea G47.30 History of hysterectomy Z90.710 Allergies Penicillins Allergy (Severe, Verified 07/31/18 22:01) Hives swelling of tongue and throat codeine Adverse Reaction (Severe, Verified 07/31/18 22:01) HALLUCINATIONS morphine Adverse Reaction (Severe, Verified 07/31/18 22:01) HALLUCINATIONS [id number]-Bxk Reductase Inhibitor Adverse Reaction (Severe, Verified 07/31/18 22:01) Other leg cramps Home Medications: Ambulatory Orders Medication Instructions Recorded Vit C/E/Zn/Coppr/Lutein/Zeaxan 1 ea PO BID 10/24/16 [Preservision Areds 2 Softgel] albuterol sulfate HFA 90 2 puff INHALATION Q6H PRN PRN 06/11/17 mcg/actuation aerosol inhaler fluticasone 250 mcg-salmeterol 50 1 inh INHALATION Q12H 06/11/17 mcg/dose blistr powdr for inhalation levothyroxine 50 mcg tablet 50 mcg PO DAILY tab 06/11/17 metformin ER 750 mg 750 mg PO DAILY 30 Days #30 06/11/17 tablet,extended release 24 hr ferrous sulfate 325 mg (65 mg 325 mg PO BID tab 05/14/18 iron) tablet,delayed release Cetirizine HCl [Zyrtec] 10 mg PO DAILY 06/01/18 Cholecalciferol (VIT D3) [Vitamin 1,000 unit PO DAILY 06/01/18 D3] Fenofibrate Nanocrystallized 145 mg PO DAILY 06/01/18 [Tricor] Losartan Potassium 100 mg PO DAILY 06/01/18 Multivitamin with Minerals 1 ea PO DAILY 06/01/18 [Multiple Vitamin] Ascorbic Acid [Vitamin C] 1,000 mg PO DAILY 07/21/18 Furosemide 40 mg PO DAILY 07/21/18 Potassium Chloride [Klor-Con M20] 20 meq PO BID 07/21/18 Pantoprazole Sodium [Protonix] 40 mg PO BID #60 tab 07/24/18 Sucralfate [Carafate] 1 gm PO 4X/DAY #120 tab 07/24/18 Aspirin [Aspirin, Baby] 81 mg PO DAILY@2200 07/31/18 Surgical History: Surgical History (Last Reviewed 08/01/18 @ 00:31 by Mrelin Espinosa MD) Presence of cardiac pacemaker (Chronic) Onset Date: ~01/10/15 Z95.0 History of radiofrequency ablation procedure for cardiac arrhythmia (Chronic) Onset Date: ~01/10/15 Z98.890 AV Junction Ablation H/O mitral valve replacement (Chronic) Onset Date: ~04/26/09 Z95.2 H/O aortic valve replacement (Chronic) Onset Date: ~04/26/09 Z95.2 History of appendectomy Z90.49 History of tonsillectomy and adenoidectomy Z98.890 History of removal of cyst Z98.890 right breast Hx of cholecystectomy Z90.49 tracheostomy Onset Date: ~12/03/072007 Surgical History: - - Aortic and mitral valve replacement Psychiatric History: 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 psych hx [employer]ING [employer] History: 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 [employer]AND[employer] OFF[employer]ER history Lives: Alone Smoking Status: Former smoker Alcohol: Occasional - *Family History Maternal Family History: Family History (Last Reviewed 08/01/18 @ 00:32 by Merlin Espinosa MD) Brother Kidney disease Father Heart disease Prostate cancer Grandmother Breast cancer History Items: - - anemia Review of Systems Constitutional: Denies: Anorexia, Fever HEENT: Denies: Difficulty Swallowing Respiratory: Reports: Shortness of Breath. Denies: Cough Gastrointestinal: Reports: Melena. Denies: Abdominal Pain, Nausea, Vomiting Genitourinary: Denies: Dysuria Musculoskeletal: Denies: Joint Tenderness Skin: Denies: Dryness Hematologic/ Lymphatic: Reports: Anemia - Physical Exam General: Alert, Oriented x3, Cooperative, No apparent distress HEENT: Atraumatic, PERRLA Neck: No JVD Lungs: Normal air movement Cardiovascular: Regular rate, Regular Rhythm Abdomen: Soft, Non Tender, Non-Distended Vital Signs Temp Pulse Resp BP Pulse Ox 98.7 F 60 16 130/55 H 93 08/01/18 08:40 08/01/18 08:40 08/01/18 08:40 08/01/18 08:40 08/01/18 08:40 Oxygen Flow Rate (L/min) 2 Oxygen Delivery Method Room Air Weight: 216 lb 11.43 oz Body Mass Index (BMI) 38.4 Intake and Output for Last 24 Hours 07/30/18 07/31/18 08/01/18 23:59 23:59 23:59 Intake Total 400 / 400 Balance 400 / 400 Laboratory Tests Past 24 Hrs 07/31/18 07/31/18 07/31/18 22:23 22:23 22:23 WBC 17.8 H RBC 2.31 L Hgb 7.0 L Hct 23.5 L MCV 101.7 H MCH 30.3 MCHC 29.8 L RDW 19.5 H RDW Differential 69.8 H Plt Count 582 H MPV 9.2 Immature Gran % (Auto) 1.200 H Neut % (Auto) 75.2 H Lymph % (Auto) 7.4 L [place] % (Auto) 14.8 H Eos % (Auto) 0.8 Baso % (Auto) 0.6 Absolute Neuts (auto) 13.4 H Absolute Lymphs (auto) 1.32 Total Counted Not Reportable Differential Comment SCANNED Diff Path Review May foll PT 15.6 H INR 1.3 APTT 23.5 L Sodium 135 L Potassium 3.6 Chloride 101 Carbon Dioxide 26.0 Anion Gap 8 BUN 28 H Creatinine 1.05 H Estim Creat Clear Calc 39.47 Est GFR (MDRD) Af Amer 66 Est GFR (MDRD) Non-Af 55 L BUN/Creatinine Ratio 26.7 H Glucose 173 H Calcium 8.5 Troponin I 0.029 Blood Type Antibody Screen Crossmatch 07/31/18 22:23 WBC RBC Hgb Hct MCV MCH MCHC RDW RDW Differential Plt Count MPV Immature Gran % (Auto) Neut % (Auto) Lymph % (Auto) [place] % (Auto) Eos % (Auto) Baso % (Auto) Absolute Neuts (auto) Absolute Lymphs (auto) Total Counted Differential Comment Diff Path Review PT INR APTT Sodium Potassium Chloride Carbon Dioxide Anion Gap BUN Creatinine Estim Creat Clear Calc Est GFR (MDRD) Af Amer Est GFR (MDRD) Non-Af BUN/Creatinine Ratio Glucose Calcium Troponin I Blood Type O NEGATIVE Antibody Screen NEGATIVE Crossmatch See Detail POC Glucose 08/01/18 05:20 POC Glucose 118 H Assessment/Plan All Active Problems (Last Reviewed 08/01/18 @ 00:38 by Merlin Espinosa MD) Dyspnea on exertion (Acute) Acute blood loss anemia (Acute) Upper GI bleed (Acute) Epistaxis (Acute) Elevated troponin (Acute) Iron deficiency anemia (Acute) Anemia (Acute) 72-year-old female with anemia and probable upper GI bleed 1. Patient had hemoglobin of 9.2 this Thursday which has now dropped to 7. She describes black stools that she always has due to her iron supplementation. She does not describe any nausea or vomiting or diarrhea. No gross blood in the stool. Given the fact that she has acute anemia with blood loss since last week and a source of upper GI bleed on her last EGD I would recommend taking a look today to see if there is any bleed that can be stopped. Capsule endoscopy was recommended the patient by Dr. Francis but this was not done due to the patient's insurance not paying in her not being able to find a place to do this. Patient received 2 units of blood. 2. I explained endoscopy in detail to the patient. I explained the risks including but not limited to stroke or heart attack with anesthesia, perforation of the GI tract, bleeding, infection. I explained that any of these could necessitate further emergency surgery. The patient understands and all questions were answered sufficiently. The patient wishes to proceed with procedure. Jesús Terry MD Pager: [facility] [address] [place] [address], [address] [place] [address] Office:
--- NOTE | 2018-08-01 09:09 | PCM.PN.HOSP ---
Subjective: Patient seen and examined. She was admitted overnight with a complaint of lightheadedness and nausea and vomiting. Patient has a history of recurrent anemia requiring blood transfusions due to a bleeding peptic ulcer. She was recently discharged after being admitted for similar complaint. He had an EGD then and had epinephrine injection in the peptic ulcer. Patient has no complaints this morning. She states she had about 10 bowel movements yesterday with 2 episodes of diarrhea. Her stools were dark because she had been on iron so she could not tell whether it was due to melena or not. She denies any fever chills, lightheadedness or dizziness, chest pain, abdominal pain, diarrhea vomiting. Review of systems otherwise negative. Labs and vitals reviewed. She was having blood transfusion at time of review. She is to have EGD this morning. Vitals/I&O's: Vital Signs Temp Pulse Resp BP Pulse Ox 98.7 F 60 16 130/55 H 93 08/01/18 08:40 08/01/18 08:40 08/01/18 08:40 08/01/18 08:40 08/01/18 08:40 Oxygen Flow Rate (L/min) 2 Oxygen Delivery Method Room Air Weight: 216 lb 11.43 oz Body Mass Index (BMI) 38.4 Intake and Output for Last 24 Hours 07/30/18 07/31/18 08/01/18 23:59 23:59 23:59 Intake Total 400 / 400 Balance 400 / 400 General: Alert, Oriented x3, Cooperative, No apparent distress HEENT: Atraumatic, PERRLA, EOMI, Normocephalic Oral: Moist Mucosa Neck: Supple, No JVD, Negative Carotid Bruits Lungs: Clear to auscultation, Normal air movement, No rhonchi, No wheeze, No rales Cardiovascular: Regular rate, Regular Rhythm, Normal S1, Normal S2, No murmurs Abdomen: Bowel Sounds Present, Soft, Non Tender, Non-Distended, No Hepato-splenomegaly Extremities: No clubbing, No cyanosis, No edema, Capillary Refill Less than 3 Seconds Skin: No rashes, No breakdown Musculoskeletal: No Tenderness to Palpation of Joints or Extremities Lymphatic: No Cervical, Supraclavicular, or Inguinal Adenopathy Neurological: Cranial nerves II-XII grossly intact, Neuro grossly intact, Motor Exam 5/5 strength throughout Psych/Mental Status: Normal Affect, Appropriate, Alert and oriented to time, place, person, mood and affect Laboratory Results 07/31/18 22:23: WBC 17.8 H, RBC 2.31 L, Hgb 7.0 L, Hct 23.5 L, MCV 101.7 H, MCH 30.3, MCHC 29.8 L, RDW 19.5 H, RDW Differential 69.8 H, Plt Count 582 H, MPV 9.2, Immature Gran % (Auto) 1.200 H, Neut % (Auto) 75.2 H, Lymph % (Auto) 7.4 L, [place] % (Auto) 14.8 H, Eos % (Auto) 0.8, Baso % (Auto) 0.6, Absolute Neuts (auto) 13.4 H, Absolute Lymphs (auto) 1.32, Total Counted Not Reportable, Differential Comment SCANNED, Diff Path Review July07/31/18 22:23: PT 15.6 H, INR 1.3, APTT 23.5 L 07/31/18 22:23: Sodium 135 L, Potassium 3.6, Chloride 101, Carbon Dioxide 26.0, Anion Gap 8, BUN 28 H, Creatinine 1.05 H, Estim Creat Clear Calc 39.47, Est GFR (MDRD) Af Amer 66, Est GFR (MDRD) Non-Af 55 L, BUN/Creatinine Ratio 26.7 H, Glucose 173 H, Calcium 8.5, Troponin I 0.029 07/31/18 22:23: Blood Type O NEGATIVE, Antibody Screen NEGATIVE, Crossmatch See Detail 08/01/18 05:20: POC Glucose 118 H Diagnostic Data Chest X-Ray 07/31/18 22:41 IMPRESSION: No acute pulmonary findings. Electronically Signed: Ubaldo Brown MD at 23:02 EDT Tel , Service support , Current Medications Acetaminophen (Tylenol) 650 mg PO Q6H PRN PRN PRN Reason: Mild pain 1-3/Temp > 100.7 F Albuterol Sulfate (Ventolin Aerosols) 2.5 mg INHALATION Q2H PRN PRN PRN Reason: sob/wheezing Albuterol/Ipratropium (Duoneb) 3 ml INHALATION Q6H.RT [facility] Last Admin: 08/01/18 07:08 Dose: Not Given Budesonide (Pulmicort Aerosol) 0.5 mg INHALATION Q12H.RT [facility] Last Admin: 08/01/18 07:08 Dose: Not Given Dextrose (D50w Syringe) 0 gm IV X1 PRN; Protocol PRN Reason: Hypoglycemia Glucagon () 1 mg IM .X1 PRN PRN Reason: Hypoglycemia Pantoprazole Sodium 80 mg/ (Sodium Chloride) 100 mls @ 10 mls/hr CONT INF Q10H [facility] Last Admin: 08/01/18 01:18 Dose: 10 mls/hr Insulin Human Lispro (Humalog Kwikpen (Bkc)) 0 unit SQ Q6 [facility]; Protocol Last Admin: 08/01/18 05:21 Dose: Not Given Levothyroxine Sodium (Synthroid) 50 mcg PO DAILY@0600 [facility] Last Admin: 08/01/18 05:04 Dose: Not Given Melatonin (Melatonin) 3 mg PO QHS PRN PRN PRN Reason: INSOMNIA Ondansetron HCl (Zofran) 4 mg IV Q6H PRN PRN PRN Reason: NAUSEA/VOMITING Prochlorperazine Edisylate (Compazine Iv) 5 mg IV Q6H PRN PRN PRN Reason: NAUSEA/VOMITING Sodium Chloride () 5 - 15 ml IV UD PRN PRN Reason: SALINE FLUSH Last Admin: 08/01/18 01:17 Dose: 15 ml Medical Necessity - Tobacco Use Smoking Status: Former smoker Assessment/Plan All Active Problems (Last Reviewed 08/01/18 @ 00:38 by Merlin Espinosa MD) Dyspnea on exertion (Acute) Acute blood loss anemia (Acute) Upper GI bleed (Acute) Epistaxis (Acute) Elevated troponin (Acute) Iron deficiency anemia (Acute) Anemia (Acute) 1. Acute on chronic anemia due to UGI bleed Hb was 7 on admission Hb on 07/28/18 was 9.2 being transfused 2 units of PRBC general surgery on board; for EGD today previous EGD showed erythematous mucosa in the antrum, with duodenal erosions with bleeding which was injected. on IV pantoprazole; currently NPO for EGD today 2.COPD: on breathing treatments with duonebs 3. Chronic HFpEF: EF of 60%, on PO lasix, which is currently on hold. 4. Valvular disease s/p mitral valve replacement and aortic valve replacement: has a bioprosthetic mitral valve and aortic valve that both need to be replaced again to follow up iwth her hert doctors at [facility] 5. Hypertension: on losartan. Controlled 6. Diabetes mellitus: ISS. Accuchecks q6hrly. Metformin on hold 7. Hypothyroidism: On Synthroid DVT prophylaxis: SCDs. No oral anticoagulant on account of anemia Code Visit Inpatient E&M: 52085 Subs Hosp L3
--- NOTE | 2018-08-01 09:28 | PN_ITS ---
Subjective: Patient seen and examined. She was admitted overnight with a complaint of lightheadedness and nausea and vomiting. Patient has a history of recurrent anemia requiring blood transfusions due to a bleeding peptic ulcer. She was recently discharged after being admitted for similar complaint. He had an EGD then and had epinephrine injection in the peptic ulcer. Patient has no complaints this morning. She states she had about 10 bowel movements yesterday with 2 episodes of diarrhea. Her stools were dark because she had been on iron so she could not tell whether it was due to melena or not. She denies any fever chills, lightheadedness or dizziness, chest pain, abdominal pain, diarrhea vomiting. Review of systems otherwise negative. Labs and vitals reviewed. She was having blood transfusion at time of review. She is to have EGD this morning. Vitals/I&O's: Vital Signs Temp Pulse Resp BP Pulse Ox 98.7 F 60 16 130/55 H 93 08/01/18 08:40 08/01/18 08:40 08/01/18 08:40 08/01/18 08:40 08/01/18 08:40 Oxygen Flow Rate (L/min) 2 Oxygen Delivery Method Room Air Weight: 216 lb 11.43 oz Body Mass Index (BMI) 38.4 Intake and Output for Last 24 Hours 07/30/18 07/31/18 08/01/18 23:59 23:59 23:59 Intake Total 400 / 400 Balance 400 / 400 General: Alert, Oriented x3, Cooperative, No apparent distress HEENT: Atraumatic, PERRLA, EOMI, Normocephalic Oral: Moist Mucosa Neck: Supple, No JVD, Negative Carotid Bruits Lungs: Clear to auscultation, Normal air movement, No rhonchi, No wheeze, No rales Cardiovascular: Regular rate, Regular Rhythm, Normal S1, Normal S2, No murmurs Abdomen: Bowel Sounds Present, Soft, Non Tender, Non-Distended, No Hepato- splenomegaly Extremities: No clubbing, No cyanosis, No edema, Capillary Refill Less than 3 Seconds Skin: No rashes, No breakdown Musculoskeletal: No Tenderness to Palpation of Joints or Extremities Lymphatic: No Cervical, Supraclavicular, or Inguinal Adenopathy Neurological: Cranial nerves II-XII grossly intact, Neuro grossly intact, Motor Exam 5/5 strength throughout Psych/Mental Status: Normal Affect, Appropriate, Alert and oriented to time, place, person, mood and affect Laboratory Results 07/31/18 22:23: WBC 17.8 H, RBC 2.31 L, Hgb 7.0 L, Hct 23.5 L, MCV 101.7 H, MCH 30.3, MCHC 29.8 L, RDW 19.5 H, RDW Differential 69.8 H, Plt Count 582 H, MPV 9.2, Immature Gran % (Auto) 1.200 H, Neut % (Auto) 75.2 H, Lymph % (Auto) 7.4 L, [place] % (Auto) 14.8 H, Eos % (Auto) 0.8, Baso % (Auto) 0.6, Absolute Neuts (auto) 13.4 H, Absolute Lymphs (auto) 1.32, Total Counted Not Reportable, Differential Comment SCANNED, Diff Path Review July07/31/18 22:23: PT 15.6 H, INR 1.3, APTT 23.5 L 07/31/18 22:23: Sodium 135 L, Potassium 3.6, Chloride 101, Carbon Dioxide 26.0, Anion Gap 8, BUN 28 H, Creatinine 1.05 H, Estim Creat Clear Calc 39.47, Est GFR (MDRD) Af Amer 66, Est GFR (MDRD) Non-Af 55 L, BUN/Creatinine Ratio 26.7 H, Glucose 173 H, Calcium 8.5, Troponin I 0.029 07/31/18 22:23: Blood Type O NEGATIVE, Antibody Screen NEGATIVE, Crossmatch See Detail 08/01/18 05:20: POC Glucose 118 H Diagnostic Data Chest X-Ray 07/31/18 22:41 IMPRESSION: No acute pulmonary findings. Electronically Signed: Ubaldo Brown MD at 23:02 EDT Tel , Service support , Current Medications Acetaminophen (Tylenol) 650 mg PO Q6H PRN PRN PRN Reason: Mild pain 1-3/Temp > 100.7 F Albuterol Sulfate (Ventolin Aerosols) 2.5 mg INHALATION Q2H PRN PRN PRN Reason: sob/wheezing Albuterol/Ipratropium (Duoneb) 3 ml INHALATION Q6H.RT [facility] Last Admin: 08/01/18 07:08 Dose: Not Given Budesonide (Pulmicort Aerosol) 0.5 mg INHALATION Q12H.RT [facility] Last Admin: 08/01/18 07:08 Dose: Not Given Dextrose (D50w Syringe) 0 gm IV X1 PRN; Protocol PRN Reason: Hypoglycemia Glucagon () 1 mg IM .X1 PRN PRN Reason: Hypoglycemia Pantoprazole Sodium 80 mg/ (Sodium Chloride) 100 mls @ 10 mls/hr CONT INF Q10H [facility] Last Admin: 08/01/18 01:18 Dose: 10 mls/hr Insulin Human Lispro (Humalog Kwikpen (Bkc)) 0 unit SQ Q6 [facility]; Protocol Last Admin: 08/01/18 05:21 Dose: Not Given Levothyroxine Sodium (Synthroid) 50 mcg PO DAILY@0600 [facility] Last Admin: 08/01/18 05:04 Dose: Not Given Melatonin (Melatonin) 3 mg PO QHS PRN PRN PRN Reason: INSOMNIA Ondansetron HCl (Zofran) 4 mg IV Q6H PRN PRN PRN Reason: NAUSEA/VOMITING Prochlorperazine Edisylate (Compazine Iv) 5 mg IV Q6H PRN PRN PRN Reason: NAUSEA/VOMITING Sodium Chloride () 5 - 15 ml IV UD PRN PRN Reason: SALINE FLUSH Last Admin: 08/01/18 01:17 Dose: 15 ml Medical Necessity - Tobacco Use Smoking Status: Former smoker Assessment/Plan All Active Problems (Last Reviewed 08/01/18 @ 00:38 by Merlin Espinosa MD) Dyspnea on exertion (Acute) Acute blood loss anemia (Acute) Upper GI bleed (Acute) Epistaxis (Acute) Elevated troponin (Acute) Iron deficiency anemia (Acute) Anemia (Acute) 1. Acute on chronic anemia due to UGI bleed * Hb was 7 on admission * Hb on 07/28/18 was 9.2 * being transfused 2 units of PRBC * general surgery on board; for EGD today * previous EGD showed erythematous mucosa in the antrum, with duodenal erosions with bleeding which was injected. * on IV pantoprazole; currently NPO * for EGD today * 2.COPD: on breathing treatments with duonebs 3. Chronic HFpEF: EF of 60%, on PO lasix, which is currently on hold. 4. Valvular disease s/p mitral valve replacement and aortic valve replacement: * has a bioprosthetic mitral valve and aortic valve that both need to be replaced again * to follow up iwth her hert doctors at [facility] * 5. Hypertension: on losartan. Controlled 6. Diabetes mellitus: ISS. Accuchecks q6hrly. Metformin on hold 7. Hypothyroidism: On Synthroid DVT prophylaxis: SCDs. No oral anticoagulant on account of anemia Code Visit Inpatient E&M: 14860 Subs Hosp L3
[2018-08-01 10:00] LABS: Anion Gap 6 (5-15); BUN 24 mg/dL (7-18); BUN/Creat Ratio 24.7 RATIO (10-20); Calcium,Total 8.4 mg/dL (8.5-10.1); Chloride 104 mmol/L (98-107); Creatinine, Serum 0.97 mg/dL (0.55-1.02); EST Glomerular Filtration Rate 60 mL/min (>60); Est Glom Filt Rate - Afr Amer 72 mL/min (>60); Estimated Creatinine Clearance 42.73 ml/min; Glucose 134 mg/dL (74-106); Potassium 3.8 mmol/L (3.5-5.1); Sodium Level 136 mmol/L (136-145)
[2018-08-01 10:17] LABS: Absolute Lymphocyte Count 1.18 X10^3/ul (0.83-4.51); Absolute Neutrophil Count 11.3 X10^3/uL (2.0-7.7); Basophil# 0.09 X10^3/uL; Basophil% 0.6 % (0-1); Eosinophil# 0.14 X10^3/uL; Eosinophils% 0.9 % (0-5); Hematocrit 27.7 % (37-47); Hemoglobin 8.6 g/dl (12.0-15.0); Lymphocyte # 1.18 X10^3/ul (4.0); Lymphocyte % 7.9 % (19-41); Mean Corpuscular Hgb 30.1 pg (27.0-32.0); Mean Corpuscular Volume 96.9 fL (81-99); Mean Platelet Vol. 9.1 fl (6.2-12.0); Monocyte# 2.09 X10^3/uL; Neutrophil # 11.33 X10^3/uL (2.7-7.7); Neutrophil % 75.8 % (47-70); Platelet Count 506 K/mm3 (150-450); RBC Distribution Width CV 19.1 % (11.6-14.6); RBC Distribution Width SD 64.1 fl (35.1-43.9); Red Blood Count 2.86 M/mm3 (4.2-5.4)
[2018-08-01 10:22] LABS: Differential Indicated SCAN CRITERIA MET; POSITIVE COUNT NO; POSITIVE DIFFERENTIAL YES; POSITIVE MORPHOLOGY NO
[2018-08-01 11:01] LABS: Bedside Glucose 128 mg/dL (70-110)
--- NOTE | 2018-08-01 11:45 | OP.ENDO_ITS ---
08/01/2018 Lalita Stroud [address] [place] [address] Re : Upper GI endoscopy procedure for Geno Flores Dear Dr. Stroud This procedure was performed on Wednesday, August 01, 2018. My impressions and recommendations are as follows: Impressions : - Blood in the duodenal bulb. - Erythematous duodenopathy. - No specimens collected. Recommendations : - [facility]. - Clear liquid diet. - Continue present medications. - Refer to a head kiln operator at appointment to be scheduled. My findings are described in the full procedure note, which is enclosed. If I can be of further assistance, please feel free to contact me at Doctor phone number(s): , Work: . Sincerely, Jesús Terry MD 08/01/2018 11:44:58 AM This report has been signed electronically.
[2018-08-01 13:41] LABS: Bedside Glucose 112 mg/dL (70-110)
[2018-08-01] MEDS: Sucralfate 1 GM Tablet PO ×2 (13:52→16:08)
[2018-08-01] MEDS: Ferrous Sulfate 325 MG Tablet PO (16:07)
[2018-08-01 16:46] LABS: Bedside Glucose 137 mg/dL (70-110)
[2018-08-01] MEDS: Budesonide Respules 0.5 MG/2 ML AMPUL.NEB. INHALATION (21:28)
[2018-08-01] MEDS: Multivitamin (Healthy Eyes) Capsule 1 CAP PO (21:34)
[2018-08-01 23:46] LABS: Bedside Glucose 102 mg/dL (70-110)
[2018-08-02] VITALS (8 sets, daily range): BP systolic 112–124; BP diastolic 55–64; PULSE 60–70; RESP 16–18; TEMP 36.7–36.9; O2SAT 95–100
[2018-08-02] MEDS: Levothyroxine 50 MCG Tablet PO (06:39)
[2018-08-02] MEDS: Sucralfate 1 GM Tablet PO ×3 (06:39→16:20)
[2018-08-02] MEDS: 0.9% NaCl Peripheral Flush Adult/Peds IV (06:40)
[2018-08-02 06:45] LABS: Bedside Glucose 95 mg/dL (70-110)
[2018-08-02] MEDS: Multivitamins,Ther W-Minerals Tablet 1 TABLET PO (07:52)
[2018-08-02] MEDS: Ferrous Sulfate 325 MG Tablet PO ×2 (07:52→17:18)
[2018-08-02] MEDS: Furosemide 40 MG Tablet PO (07:52)
[2018-08-02] MEDS: Loratadine 10 MG Tablet PO (07:52)
[2018-08-02] MEDS: Fenofibrate 145 MG Tablet PO (07:53)
[2018-08-02] MEDS: Multivitamin (Healthy Eyes) Capsule 1 CAP PO (07:56)
[2018-08-02 08:11] LABS: Absolute Neutrophil Count 8.3 X10^3/uL (2.0-7.7); Basophil# 0.09 X10^3/uL; Basophil% 0.8 % (0-1); Differential Indicated SCAN CRITERIA MET; Eosinophil# 0.24 X10^3/uL; Eosinophils% 2.1 % (0-5); Hematocrit 30.3 % (37-47); Hemoglobin 9.2 g/dl (12.0-15.0); Lymphocyte % 18.5 % (19-41); Mean Corp Hgb Conc 30.4 g/gl (32-36); Mean Corpuscular Hgb 29.9 pg (27.0-32.0); Mean Corpuscular Volume 98.4 fL (81-99); Mean Platelet Vol. 8.9 fl (6.2-12.0); Monocyte# 0.56 X10^3/uL; Monocyte% 4.9 % (0-10); Neutrophil # 8.31 X10^3/uL (2.7-7.7); Neutrophil % 73.1 % (47-70); POSITIVE COUNT NO; POSITIVE DIFFERENTIAL NO; POSITIVE MORPHOLOGY YES; Platelet Count 466 K/mm3 (150-450); RBC Distribution Width CV 19.7 % (11.6-14.6); RBC Distribution Width SD 67.8 fl (35.1-43.9); Red Blood Count 3.08 M/mm3 (4.2-5.4); White Blood Count 11.4 K/mm3 (4.4-11.0)
--- NOTE | 2018-08-02 08:23 | PCM.PN.SRG ---
Subjective: Patient is doing well with no abdominal pain this morning. She has no dyspnea or weakness or fatigue this morning - Physical Exam General: Alert, Oriented x3, Cooperative Neck: No JVD Lungs: Normal air movement Cardiovascular: Regular rate, Regular Rhythm Abdomen: Soft, Non Tender, Non-Distended Vital Signs Temp Pulse Resp BP Pulse Ox 98.4 F 70 18 124/62 H 95 08/02/18 07:46 08/02/18 07:46 08/02/18 07:46 08/02/18 07:46 08/02/18 07:46 Oxygen Flow Rate (L/min) 2 Oxygen Delivery Method Room Air Weight: 216 lb 11.43 oz Body Mass Index (BMI) 38.4 Intake and Output for Last 24 Hours 07/31/18 08/01/18 08/02/18 23:59 23:59 23:59 Intake Total 1850 / 1850 270 / 270 Balance 1850 / 185 270 / 270 Laboratory Tests Past 24 Hrs 07/31/18 07/31/18 08/01/18 22:23 22:23 09:40 WBC RBC Hgb Hct MCV MCH MCHC RDW RDW Differential Plt Count MPV Immature Gran % (Auto) Neut % (Auto) Lymph % (Auto) [place] % (Auto) Eos % (Auto) Baso % (Auto) Absolute Neuts (auto) Absolute Lymphs (auto) Total Counted Diff Path Review Sodium 136 Potassium 3.8 Chloride 104 Carbon Dioxide 26.0 Anion Gap 6 BUN 24 H Creatinine 0.97 Estim Creat Clear Calc 42.73 Est GFR (MDRD) Af Amer 72 Est GFR (MDRD) Non-Af 60 BUN/Creatinine Ratio 24.7 H Glucose 134 H Calcium 8.4 L Crossmatch See Detail See Detail 08/01/18 08/02/18 09:40 07:50 WBC 15.0 H 11.4 H RBC 2.86 L 3.08 L Hgb 8.6 L 9.2 L Hct 27.7 L 30.3 L MCV 96.9 98.4 MCH 30.1 29.9 MCHC 31.0 L 30.4 L RDW 19.1 H 19.7 H RDW Differential 64.1 H 67.8 H Plt Count 506 H 466 H MPV 9.1 8.9 Immature Gran % (Auto) 0.800 0.600 Neut % (Auto) 75.8 H 73.1 H Lymph % (Auto) 7.9 L 18.5 L [place] % (Auto) 14.0 H 4.9 Eos % (Auto) 0.9 2.1 Baso % (Auto) 0.6 0.8 Absolute Neuts (auto) 11.3 H 8.3 H Absolute Lymphs (auto) 1.18 2.10 Total Counted Not Reportable Pending Diff Path Review May foll Sodium Potassium Chloride Carbon Dioxide Anion Gap BUN Creatinine Estim Creat Clear Calc Est GFR (MDRD) Af Amer Est GFR (MDRD) Non-Af BUN/Creatinine Ratio Glucose Calcium Crossmatch POC Glucose 08/02/18 08/01/18 08/01/18 06:37 23:40 16:40 POC Glucose 95 102 137 H 08/01/18 08/01/18 13:36 10:58 POC Glucose 112 H 128 H Medical Necessity - Tobacco Use Smoking Status: Former smoker Assessment/Plan All Active Problems (Last Reviewed 08/01/18 @ 00:38 by Merlin Espinosa MD) Dyspnea on exertion (Acute) Acute blood loss anemia (Acute) Upper GI bleed (Acute) Epistaxis (Acute) Elevated troponin (Acute) Iron deficiency anemia (Acute) Anemia (Acute) 72-year-old female with duodenal bleed 1. Patient has a small bleeding area just distal to the pylorus and the duodenum. I was unable to place clips or inject due to the location. I am trying to get her into see a tar worker as soon as possible for possible cauterization. Until then she can start her normal diet and continue PPI and Carafate. Jesús Terry MD Pager: [facility] [address] [place] [address], [address] [place] [address] Office:
--- NOTE | 2018-08-02 08:47 | DCINST_ITS ---
You will use the following diet at home:: Cardiac Your food should be the consistency of: Regular Your liquids should be the consistency of: Regular/Thin Weight Bearing Status: Weight bearing as tolerated Call your doctor if you observe: Shortness of breath, Dizziness, - Instructions: Anemia, ED Bleed UGI Stable Additional Instructions: aspirin discontinued o/a of UGI bleed Allergies/Adverse Reactions: Allergies Penicillins Allergy (Severe, Verified 07/31/18 22:01) Hives swelling of tongue and throat codeine Adverse Reaction (Severe, Verified 07/31/18 22:01) HALLUCINATIONS morphine Adverse Reaction (Severe, Verified 07/31/18 22:01) HALLUCINATIONS Ompvedw-Lzl-Gsi Reductase Inhibitor Adverse Reaction (Severe, Verified 07/31/18 22:01) Other leg cramps Medications to take at Discharge Vit C/E/Zn/Coppr/Lutein/Zeaxan [Preservision Areds 2 Softgel] 1 ea PO BID 10/24/16 albuterol sulfate HFA 90 mcg/actuation aerosol inhaler 2 puff INHALATION Q6H PRN PRN 06/11/17 fluticasone 250 mcg-salmeterol 50 mcg/dose blistr powdr for inhalation 1 inh INHALATION Q12H 06/11/17 levothyroxine 50 mcg tablet 50 mcg PO DAILY tab 06/11/17 metformin ER 750 mg tablet,extended release 24 hr 750 mg PO DAILY 30 Days #30 06/11/17 ferrous sulfate 325 mg (65 mg iron) tablet,delayed release 325 mg PO BID tab 05/14/18 Cetirizine HCl [Zyrtec] 10 mg PO DAILY 06/01/18 Cholecalciferol (VIT D3) [Vitamin D3] 1,000 unit PO DAILY 06/01/18 Fenofibrate Nanocrystallized [Tricor] 145 mg PO DAILY 06/01/18 Losartan Potassium 100 mg PO DAILY 06/01/18 Multivitamin with Minerals [Multiple Vitamin] 1 ea PO DAILY 06/01/18 Ascorbic Acid [Vitamin C] 1,000 mg PO DAILY 07/21/18 Furosemide 40 mg PO DAILY 07/21/18 Potassium Chloride [Klor-Con M20] 20 meq PO BID 07/21/18 Pantoprazole Sodium [Protonix] 40 mg PO BID #60 tab 07/24/18 Sucralfate [Carafate] 1 gm PO 4X/DAY #120 tab 07/24/18 Primary Care Physician: Lalita Stroud MD [Primary Care Provider] - Please follow up with your Primary Care Physician in: one week Test Results: Test results from this visit will be discussed in further detail at your follow- up appointment, if applicable. Proposed Discharge Date: 08/02/18
--- NOTE | 2018-08-02 09:38 | CASEMGMT ---
Readmission chart review: Pt initially admitted 07/21/18-07/24/18 for low hemoglobin and dx'd with duodenal erosions, which were injected during scope. See CM assessment by Iraj PARRA CM completed on 07/21/18. Pt readmitted 07/31/18 for low hemoglobin and same duodenal bleed. Dr. Terry's office is working on getting pt into GI physician vero. CM to follow for any further discharge planning/needs. Per Dr. Friedman, plan is for discharge today. Arabella PARRA CM
[2018-08-02 11:16] LABS: Bedside Glucose 153 mg/dL (70-110)
--- NOTE | 2018-08-02 12:31 | PCM.DC.SUM ---
Discharge Date and Diagnosis Date of Admission: 07/31/18 Date of Discharge: 08/02/18 - Primary Discharge Diagnosis UGI bleed acute on chronic anemia - Secondary Discharge Diagnosis Chronic Problems (Last Reviewed 08/01/18 @ 00:38 by Merlin Espinosa MD) Iron deficiency anemia due to chronic blood loss (Chronic) Diastolic CHF (Chronic) Obesity (Chronic) Hypertension (Chronic) Presence of cardiac pacemaker (Chronic ~01/10/15) Persistent atrial fibrillation (Chronic) History of radiofrequency ablation procedure for cardiac arrhythmia (Chronic ~01/10/15) AV Junction Ablation H/O mitral valve replacement (Chronic ~04/26/09) H/O aortic valve replacement (Chronic ~04/26/09) 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 Electronically Signed: Ubaldo Brown MD at 23:02 EDT Tel , Service support , general surgery- Dr Terry Operations: None Procedures: - - EGD Summary of Care Provided: The patient is a 72 year old F with past medical history as listed. She was admitted through the ED on 07/31/2018 with complaint of fatigue and weakness as well as dark stools. Patient did have a history of acute blood loss anemia due to upper GI bleed and had been admitted on 07/21/2018 and discharged on 07/24/2018 after she presented with similar symptoms and was found to have a bleeding erosion in the duodenal bulb and stomach which was injected with epinephrine. She was also transfused during that admission. Patient states that his symptoms felt like how she always feels when she is anemic so she decided to come into the ED where she was found to have a hemoglobin of 7. She was transfused with 2 units of packed red blood cells. She did not think that her dark stools were due to bleeding as she is on iron and so cannot tell the difference. She had been on iron and oral Carafate. General surgery was consulted and she had an EGD done on 08/01/2018 which showed bleeding in the duodenal bulb. General surgery deferred any attempts at intervention again on account of the location. Patient's hemoglobin came up to 9.2 after she received another unit of blood making a total of 3 units of packed red blood cells received. She remained hemodynamically stable. However attempts to set up patient with outpatient GI evaluation was not successful as senior receptionist felt that it was best she was seen in an inpatient setting due to location of the GI bleed. Patient was therefore transferred to [facility] hospitalist service on 08/02/2018 for GI evaluation and for possible interventional radiology assessment. Aspirin was stopped completely and this was also discussed with her wound care center consultant Dr. Urias. Upon discharge from [facility], she is to follow-up with her primary care doctor in 1 week. Patient seen and examined prior to discharge. She had no complaints and felt well. Review of systems otherwise negative. Labs and vitals reviewed. Home medication reviewed and reconciled On examination Vital Signs Height 5 ft 3 in Weight: 216 lb 11.43 oz Weight in Pounds 216.7 lbs Pulse Ox 95 Temperature 98.4 F Pulse Rate 70 Respiratory Rate 18 Blood Pressure 124/62 Blood Pressure Position Semi-Fowlers General: Alert, Oriented x3, Cooperative, No apparent distress HEENT: Atraumatic, PERRLA, EOMI, Normocephalic Oral: Moist Mucosa Neck: Supple, No JVD, Negative Carotid Bruits Lungs: Clear to auscultation, Normal air movement, No rhonchi, No wheeze, No rales Cardiovascular: Regular rate, Regular Rhythm, Normal S1, Normal S2, No murmurs Abdomen: Bowel Sounds Present, Soft, Non Tender, Non-Distended, No Hepato-splenomegaly Extremities: No clubbing, No cyanosis, No edema, Capillary Refill Less than 3 Seconds Skin: No rashes, No breakdown Musculoskeletal: No Tenderness to Palpation of Joints or Extremities Lymphatic: No Cervical, Supraclavicular, or Inguinal Adenopathy Neurological: Cranial nerves II-XII grossly intact, Neuro grossly intact, Motor Exam 5/5 strength throughout Psych/Mental Status: Normal Affect, Appropriate, Alert and oriented to time, place, person, mood and affect She is also to follow-up with her cardiothoracic surgeons on account of her prosthetic mitral and aortic valves which need replacement again. She is to continue taking p.o. pantoprazole 40 mg twice daily and Carafate. - Physical Exam Vital Signs Temp Pulse Resp BP Pulse Ox 98.4 F 70 18 124/62 H 95 08/02/18 07:46 08/02/18 07:46 08/02/18 07:46 08/02/18 07:46 08/02/18 07:46 Oxygen Flow Rate (L/min) 2 Oxygen Delivery Method Room Air Weight: 216 lb 11.43 oz Body Mass Index (BMI) 38.4 Intake and Output for Last 24 Hours 07/31/18 08/01/18 08/02/18 23:59 23:59 23:59 Intake Total 1850 1849 510 / 510 Balance 1849 510 / 510 Laboratory Tests Past 24 Hrs 07/31/18 07/31/18 08/02/18 22:23 22:23 07:50 WBC 11.4 H RBC 3.08 L Hgb 9.2 L Hct 30.3 L MCV 98.4 MCH 29.9 MCHC 30.4 L RDW 19.7 H RDW Differential 67.8 H Plt Count 466 H MPV 8.9 Immature Gran % (Auto) 0.600 Neut % (Auto) 73.1 H Lymph % (Auto) 18.5 L [place] % (Auto) 4.9 Eos % (Auto) 2.1 Baso % (Auto) 0.8 Absolute Neuts (auto) 8.3 H Absolute Lymphs (auto) 2.10 Total Counted Not Reportable Differential Comment COMMENT Crossmatch See Detail See Detail POC Glucose 08/02/18 08/02/18 08/01/18 11:03 06:37 23:40 POC Glucose 153 H 95 102 08/01/18 08/01/18 16:40 13:36 POC Glucose 137 H 112 H Discharge Diet: Low fat/ Low Cholesterol Discharge Activity: Return to Normal Activity Weight Bearing Status: Weight bearing as tolerated Call your doctor if you observe: Shortness of breath, Dizziness, - Home Medications: Medications to take at Discharge Vit C/E/Zn/Coppr/Lutein/Zeaxan [Preservision Areds 2 Softgel] 1 ea PO BID 10/24/16 albuterol sulfate HFA 90 mcg/actuation aerosol inhaler 2 puff INHALATION Q6H PRN PRN 06/11/17 fluticasone 250 mcg-salmeterol 50 mcg/dose blistr powdr for inhalation 1 inh INHALATION Q12H 06/11/17 levothyroxine 50 mcg tablet 50 mcg PO DAILY tab 06/11/17 metformin ER 750 mg tablet,extended release 24 hr 750 mg PO DAILY 30 Days #30 06/11/17 ferrous sulfate 325 mg (65 mg iron) tablet,delayed release 325 mg PO BID tab 05/14/18 Cetirizine HCl [Zyrtec] 10 mg PO DAILY 06/01/18 Cholecalciferol (VIT D3) [Vitamin D3] 1,000 unit PO DAILY 06/01/18 Fenofibrate Nanocrystallized [Tricor] 145 mg PO DAILY 06/01/18 Losartan Potassium 100 mg PO DAILY 06/01/18 Multivitamin with Minerals [Multiple Vitamin] 1 ea PO DAILY 06/01/18 Ascorbic Acid [Vitamin C] 1,000 mg PO DAILY 07/21/18 Furosemide 40 mg PO DAILY 07/21/18 Potassium Chloride [Klor-Con M20] 20 meq PO BID 07/21/18 Pantoprazole Sodium [Protonix] 40 mg PO BID #60 tab 07/24/18 Sucralfate [Carafate] 1 gm PO 4X/DAY #120 tab 07/24/18 Primary Care Physician: Lalita Stroud MD [Primary Care Provider] - Please follow up with your Primary Care Physician in: one week Patient Instructions: Anemia, ED Bleed UGI Stable Disposition: Acute care Hospital [facility] Minutes spent on discharge:: 40 Patient Condition:: Stable Medical Necessity - Tobacco Use Smoking Status: Former smoker Meaningful Use Info Meaningful Use Diagnoses (Choose all that apply): None applicable Code Visit Inpatient E&M: 81537 Disch Hosp
--- NOTE | 2018-08-02 12:36 | DS.PCM_ITS ---
Discharge Date and Diagnosis Date of Admission: 07/31/18 Date of Discharge: 08/02/18 - Primary Discharge Diagnosis UGI bleed acute on chronic anemia - Secondary Discharge Diagnosis Chronic Problems (Last Reviewed 08/01/18 @ 00:38 by Merlin Espinosa MD) Iron deficiency anemia due to chronic blood loss (Chronic) Diastolic CHF (Chronic) Obesity (Chronic) Hypertension (Chronic) Presence of cardiac pacemaker (Chronic ~01/10/15) Persistent atrial fibrillation (Chronic) History of radiofrequency ablation procedure for cardiac arrhythmia (Chronic ~01/10/15) AV Junction Ablation H/O mitral valve replacement (Chronic ~04/26/09) H/O aortic valve replacement (Chronic ~04/26/09) 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 Electronically Signed: Ubaldo Brown MD at 23:02 EDT Tel , Service support , general surgery- Dr Terry Operations: None Procedures: - - EGD Summary of Care Provided: The patient is a 72 year old F with past medical history as listed. She was admitted through the ED on 07/31/2018 with complaint of fatigue and weakness as well as dark stools. Patient did have a history of acute blood loss anemia due to upper GI bleed and had been admitted on 07/21/2018 and discharged on 07/24/2018 after she presented with similar symptoms and was found to have a bleeding erosion in the duodenal bulb and stomach which was injected with epinephrine. She was also transfused during that admission. Patient states that his symptoms felt like how she always feels when she is anemic so she decided to come into the ED where she was found to have a hemoglobin of 7. She was transfused with 2 units of packed red blood cells. She did not think that her dark stools were due to bleeding as she is on iron and so cannot tell the difference. She had been on iron and oral Carafate. General surgery was consulted and she had an EGD done on 08/01/2018 which showed bleeding in the duodenal bulb. General surgery deferred any attempts at intervention again on account of the location. Patient's hemoglobin came up to 9.2 after she received another unit of blood making a total of 3 units of packed red blood cells received. She remained hemodynamically stable. However attempts to set up patient with outpatient GI evaluation was not successful as adjustment clerk felt that it was best she was seen in an inpatient setting due to location of the GI bleed. Patient was therefore transferred to [facility] hospitalist service on 08/02/2018 for GI evaluation and for possible interventional radiology assessment. Aspirin was stopped completely and this was also discussed with her business lawyer Dr. Urias. Upon discharge from [facility], she is to follow-up with her primary care doctor in 1 week. Patient seen and examined prior to discharge. She had no complaints and felt well. Review of systems otherwise negative. Labs and vitals reviewed. Home medication reviewed and reconciled On examination Vital Signs Height 5 ft 3 in Weight: 216 lb 11.43 oz Weight in Pounds 216.7 lbs Pulse Ox 95 Temperature 98.4 F Pulse Rate 70 Respiratory Rate 18 Blood Pressure 124/62 Blood Pressure Position Semi-Fowlers General: Alert, Oriented x3, Cooperative, No apparent distress HEENT: Atraumatic, PERRLA, EOMI, Normocephalic Oral: Moist Mucosa Neck: Supple, No JVD, Negative Carotid Bruits Lungs: Clear to auscultation, Normal air movement, No rhonchi, No wheeze, No rales Cardiovascular: Regular rate, Regular Rhythm, Normal S1, Normal S2, No murmurs Abdomen: Bowel Sounds Present, Soft, Non Tender, Non-Distended, No Hepato- splenomegaly Extremities: No clubbing, No cyanosis, No edema, Capillary Refill Less than 3 Seconds Skin: No rashes, No breakdown Musculoskeletal: No Tenderness to Palpation of Joints or Extremities Lymphatic: No Cervical, Supraclavicular, or Inguinal Adenopathy Neurological: Cranial nerves II-XII grossly intact, Neuro grossly intact, Motor Exam 5/5 strength throughout Psych/Mental Status: Normal Affect, Appropriate, Alert and oriented to time, place, person, mood and affect She is also to follow-up with her cardiothoracic surgeons on account of her prosthetic mitral and aortic valves which need replacement again. She is to continue taking p.o. pantoprazole 40 mg twice daily and Carafate. - Physical Exam Vital Signs Temp Pulse Resp BP Pulse Ox 98.4 F 70 18 124/62 H 95 08/02/18 07:46 08/02/18 07:46 08/02/18 07:46 08/02/18 07:46 08/02/18 07:46 Oxygen Flow Rate (L/min) 2 Oxygen Delivery Method Room Air Weight: 216 lb 11.43 oz Body Mass Index (BMI) 38.4 Intake and Output for Last 24 Hours 07/31/18 08/01/18 08/02/18 23:59 23:59 23:59 Intake Total 1850 1849 510 / 510 Balance 1849 510 / 510 Laboratory Tests Past 24 Hrs 07/31/18 07/31/18 08/02/18 22:23 22:23 07:50 WBC 11.4 H RBC 3.08 L Hgb 9.2 L Hct 30.3 L MCV 98.4 MCH 29.9 MCHC 30.4 L RDW 19.7 H RDW Differential 67.8 H Plt Count 466 H MPV 8.9 Immature Gran % (Auto) 0.600 Neut % (Auto) 73.1 H Lymph % (Auto) 18.5 L [place] % (Auto) 4.9 Eos % (Auto) 2.1 Baso % (Auto) 0.8 Absolute Neuts (auto) 8.3 H Absolute Lymphs (auto) 2.10 Total Counted Not Reportable Differential Comment COMMENT Crossmatch See Detail See Detail POC Glucose 08/02/18 08/02/18 08/01/18 11:03 06:37 23:40 POC Glucose 153 H 95 102 08/01/18 08/01/18 16:40 13:36 POC Glucose 137 H 112 H Discharge Diet: Low fat/ Low Cholesterol Discharge Activity: Return to Normal Activity Weight Bearing Status: Weight bearing as tolerated Call your doctor if you observe: Shortness of breath, Dizziness, - Home Medications: Medications to take at Discharge Vit C/E/Zn/Coppr/Lutein/Zeaxan [Preservision Areds 2 Softgel] 1 ea PO BID 10/24/16 albuterol sulfate HFA 90 mcg/actuation aerosol inhaler 2 puff INHALATION Q6H PRN PRN 06/11/17 fluticasone 250 mcg-salmeterol 50 mcg/dose blistr powdr for inhalation 1 inh INHALATION Q12H 06/11/17 levothyroxine 50 mcg tablet 50 mcg PO DAILY tab 06/11/17 metformin ER 750 mg tablet,extended release 24 hr 750 mg PO DAILY 30 Days #30 06/11/17 ferrous sulfate 325 mg (65 mg iron) tablet,delayed release 325 mg PO BID tab 05/14/18 Cetirizine HCl [Zyrtec] 10 mg PO DAILY 06/01/18 Cholecalciferol (VIT D3) [Vitamin D3] 1,000 unit PO DAILY 06/01/18 Fenofibrate Nanocrystallized [Tricor] 145 mg PO DAILY 06/01/18 Losartan Potassium 100 mg PO DAILY 06/01/18 Multivitamin with Minerals [Multiple Vitamin] 1 ea PO DAILY 06/01/18 Ascorbic Acid [Vitamin C] 1,000 mg PO DAILY 07/21/18 Furosemide 40 mg PO DAILY 07/21/18 Potassium Chloride [Klor-Con M20] 20 meq PO BID 07/21/18 Pantoprazole Sodium [Protonix] 40 mg PO BID #60 tab 07/24/18 Sucralfate [Carafate] 1 gm PO 4X/DAY #120 tab 07/24/18 Primary Care Physician: Lalita Stroud MD [Primary Care Provider] - Please follow up with your Primary Care Physician in: one week Patient Instructions: Anemia, ED Bleed UGI Stable Disposition: Acute care Hospital [facility] Minutes spent on discharge:: 40 Patient Condition:: Stable Medical Necessity - Tobacco Use Smoking Status: Former smoker Meaningful Use Info Meaningful Use Diagnoses (Choose all that apply): None applicable Code Visit Inpatient E&M: 19695 Disch Hosp
[2018-08-02 12:55] LABS: Pathologist Review Reviewed
[2018-08-02 12:56] LABS: Pathologist Review Reviewed
[2018-08-02 16:25] LABS: Bedside Glucose 140 mg/dL (70-110)
== END 2018-08-02 18:42 | disposition short-term general hospital (02) | DRG 378 ==
LOC: ED 22:48 → PCU 08-01 00:24
PROVIDERS: Surgery; Admitting Provider Hospitalist; Emergency Provider Emergency Medicine; Family Provider Family Medicine; PCP Family Medicine; Referring Provider Hospitalist; Visit Provider Student in an Organized Health Care Education/Training Program
PROC: 0DJ08ZZ Inspection of Upper Intestinal Tract, Via Natural or Artificial Opening Endoscopic (ICD-10-PCS; CPT 43235; principal; 2018-08-01 10:55)
DX: K92.2 Gastrointestinal hemorrhage, unspecified (principal); D62 Acute posthemorrhagic anemia; I50.32 Chronic diastolic (congestive) heart failure; I48.1 Persistent atrial fibrillation; Z95.3 Presence of xenogenic heart valve; E03.9 Hypothyroidism, unspecified; I11.0 Hypertensive heart disease with heart failure; E11.9 Type 2 diabetes mellitus without complications; Z79.84 Long term (current) use of oral hypoglycemic drugs; J44.9 Chronic obstructive pulmonary disease, unspecified; Z95.0 Presence of cardiac pacemaker; E66.9 Obesity, unspecified; Z68.38 Body mass index [BMI] 38.0-38.9, adult; Z87.891 Personal history of nicotine dependence
CPT/HCPCS: 36415; 71045; 80048; 82962; 84484; 85025; 85610; 85730; 86850; 86900; 86920; 86922; 93005; 94640; 97162; 97166; 97530; 99285; J7040; P9016; A4216; J2405; J3490

== ENCOUNTER → 2018-08-10 14:35 | Outpatient (CLI) | payer MEDICARE, OTHER, SELFPAY ==
[2018-08-01 00:40] VITALS: BMI 38.4
[2018-08-10 15:50] LABS: Absolute Lymphocyte Count 0.67 X10^3/ul (0.83-4.51); Absolute Neutrophil Count 7.4 X10^3/uL (2.0-7.7); Basophil# 0.08 X10^3/uL; Basophil% 0.8 % (0-1); Hematocrit 28.9 % (37-47); Hemoglobin 8.4 g/dl (12.0-15.0); Lymphocyte # 0.67 X10^3/ul (4.0); Lymphocyte % 6.9 % (19-41); Mean Corp Hgb Conc 29.1 g/gl (32-36); Mean Corpuscular Hgb 27.9 pg (27.0-32.0); Mean Platelet Vol. 8.8 fl (6.2-12.0); Monocyte# 1.41 X10^3/uL; Monocyte% 14.5 % (0-10); Neutrophil # 7.44 X10^3/uL (2.7-7.7); Neutrophil % 76.6 % (47-70); Platelet Count 653 K/mm3 (150-450); RBC Distribution Width SD 62.8 fl (35.1-43.9); Red Blood Count 3.01 M/mm3 (4.2-5.4); White Blood Count 9.7 K/mm3 (4.4-11.0)
[2018-08-10 15:51] LABS: POSITIVE COUNT NO; POSITIVE DIFFERENTIAL NO; POSITIVE MORPHOLOGY NO
== END ==
PROVIDERS: Family Provider Family Medicine; PCP Family Medicine; Visit Provider Family Medicine
DX: D50.0 Iron deficiency anemia secondary to blood loss (chronic) (principal)
CPT/HCPCS: 36415; 85025

== ENCOUNTER 2019-01-16 14:57 | Emergency (ER) | payer MEDICARE, OTHER, SELFPAY ==
[2018-12-01 13:28] VITALS: BMI 34.3
[2019-01-16] VITALS (7 sets, daily range): BP systolic 90–123; BP diastolic 36–57; PULSE 60–69; RESP 14–24; TEMP 36.8–37.1; O2SAT 96–100; BMI 34.8
--- NOTE | 2019-01-16 15:48 | ED.VIS.GEN ---
History of Present Illness Chief Complaint: Dizziness Informant: Patient Onset: Days Context: Gradual Onset Timing: Continuous Current Severity: Moderate Maximum Severity: Moderate Narrative: The patient is a 73-year-old female with history of aortic valve disease who is approximately 12 days status post TAVR the presents to the emergency department with dizziness. The patient has a history of GI bleed. She states that she was found to have a duodenal ulcer that was treated with intervention at [facility] in July. Her baby aspirin was stopped at that time due to her risk of rebleeding. She states that since her procedure, she has been on Plavix and baby aspirin. She is also on iron replacement. She did have a fractured tooth and had to take clindamycin for 7 days and finished that on . She has not had diarrhea. She has been moving her bowels with increased frequency however. She states her bowel movements are always dark because of her iron. However, she states that these of the same symptoms she had when she had her prior GI bleed. She denies fever. She denies chest pain. She had no shortness of breath. She states that since her procedure, this is the best that she has felt. Prior similar symptoms: Yes Recent Illness/Hospitalization: Yes Past Medical History - Allergies and Home Meds Allergies/Adverse Reactions: Allergies Penicillins Allergy (Severe, Verified 01/16/19 15:00) Hives swelling of tongue and throat codeine Adverse Reaction (Severe, Verified 01/16/19 15:00) HALLUCINATIONS morphine Adverse Reaction (Severe, Verified 01/16/19 15:00) HALLUCINATIONS Ipufkey-Fmo-Ldr Reductase Inhibitor Adverse Reaction (Severe, Verified 01/16/19 15:00) Other leg cramps Primary Care Physician: Lalita Stroud MD [Primary Care Provider] - Prior records reviewed: Yes Surgical History: - - Aortic and mitral valve replacement Smoking Status: Former smoker - Family History Maternal Family History: Family History (Last Reviewed 12/01/18 @ 13:26 by Bev Maria) Brother Kidney disease Father Heart disease Prostate cancer Grandmother Breast cancer Family History: Reports: - - anemia Review of Systems General: Denies: Chills, Fever, Sweats Eyes: Denies: Visual changes - bilaterally, Diplopia ENT: Denies: Rhinorrhea, Sore throat Cardiovascular: Denies: Chest pain, Palpitations Respiratory: Denies: Dyspnea, Cough, Dyspnea on exertion Gastrointestinal: Denies: Abdominal pain, Nausea, Vomiting, Diarrhea, Melena, Hematochezia Genitourinary: Denies: Dysuria, Hematuria, Frequency Musculoskeletal: Denies: Back pain, Extremity Pain Skin: Denies: Rash, Wounds Neurological: Reports: Weakness. Denies: Headache, Numbness Psych: Denies: Depression Hematologic: Reports: Easy bleeding Physical Exam Vital Signs/Narrative: Vital Signs Temp Pulse Resp BP Pulse Ox 01/16/19 14:58 98.3 F 61 14 123/57 H 98 Inital Vital Signs reviewed: Yes General: Well nourished, Well developed, No Acute Distress Head: Normocephalic, Atraumatic Eyes: Perrl, EOMI ENT: Moist mucous membranes, No rhinorrhea Neck: Supple, Nontender Cardiovascular: Regular rate, Regular rhythm, No murmurs Respiratory: No distress, CTA bilaterally, Chest nontender Abdomen: Soft, Nontender, Nondistended, Normal bowel sounds Back: Nontender, Normal Inspection Extremities: Nontender, No edema Skin: Normal color, No rash Neurological: Alert, Oriented x3, Cranial nerves II-XII grossly intact, Normal Strength, Normal Sensation Psychological: Normal affect, Normal Mood Diagnostic/Tx/Re-eval Clinical Impression(s) from Imaging Studies Chest X-Ray 01/16/19 18:05 IMPRESSION: Minimal prominent pulmonary vascularity with no evidence of focal airspace disease. Electronically Signed: Alban Le DO at 18:31 EDT , Service support , Abnormal Lab Results 01/16/19 01/16/19 01/16/19 15:44 15:44 15:49 WBC 18.2 H RBC 2.33 L Hgb 6.9 L Hct 22.5 L MCV 96.6 MCH 29.6 MCHC 30.7 L RDW Std Deviation 70.9 H RDW Coeff of Marino 22.5 H Plt Count 506 H MPV 9.6 Neut % (Auto) Not Reportable Absolute Neuts (auto) 15.3 H Absolute Lymphs (auto) 2.37 Total Counted 100 Neutrophils % (Manual) 83 H Band Neutrophils % 1 Lymphocytes % (Manual) 13 L Monocytes % (Manual) 3 Diff Path Review May foll Platelet Estimate ADEQUATE Plt Morphology Comment LARGE Hypochromasia 1+ Anisocytosis 2+ PT 14.8 INR 1.2 APTT 27.9 Sodium 137 Potassium 4.1 Chloride 103 Carbon Dioxide 26.0 Anion Gap 8 BUN 47 H Creatinine 1.35 H Estim Creat Clear Calc 31.57 Est GFR (MDRD) Af Amer 49 L Est GFR (MDRD) Non-Af 41 L BUN/Creatinine Ratio 34.8 H Glucose 141 H Calcium 8.9 Blood Type Antibody Screen Crossmatch 01/16/19 01/16/19 15:49 15:49 WBC RBC Hgb Hct MCV MCH MCHC RDW Std Deviation RDW Coeff of Marino Plt Count MPV Neut % (Auto) Absolute Neuts (auto) Absolute Lymphs (auto) Total Counted Neutrophils % (Manual) Band Neutrophils % Lymphocytes % (Manual) Monocytes % (Manual) Diff Path Review Platelet Estimate Plt Morphology Comment Hypochromasia Anisocytosis PT INR APTT Sodium Potassium Chloride Carbon Dioxide Anion Gap BUN Creatinine Estim Creat Clear Calc Est GFR (MDRD) Af Amer Est GFR (MDRD) Non-Af BUN/Creatinine Ratio Glucose Calcium Blood Type O NEGATIVE Antibody Screen NEGATIVE Crossmatch See Detail - Medical Decision Making The patient presents to the emergency department generalized weakness. The patient has recent TAVR procedure and was restarted on her anticoagulants. Screening labs do demonstrate new anemia. The patient was typed and crossed for 2 units of blood. She was not hypotensive. My initial plan was to get her admitted back to [facility] where she had a prior endoscopy, however they preferred that she would go to [facility] given her recent procedure. Patient was discussed with Dr. Hughes at [facility] and was accepted in transfer. Impression 1. Acute upper GI bleed ED Disposition - Plan for ED Patient: Referrals: Lalita Stroud MD [Primary Care Provider] -
[2019-01-16 15:58] LABS: Hematocrit 22.5 % (37-47); Hemoglobin 6.9 g/dL (12.0-15.0); Mean Corp Hgb Conc 30.7 g/dL (32-36); Mean Corpuscular Hgb 29.6 pg (27.0-32.0); Mean Corpuscular Volume 96.6 fL (81-99); Mean Platelet Vol. 9.6 fl (6.2-12.0); POSITIVE COUNT YES; POSITIVE DIFFERENTIAL YES; POSITIVE MORPHOLOGY YES; Platelet Count 506 K/mm3 (150-450); RBC Distribution Width CV 22.5 % (11.6-14.6); RBC Distribution Width SD 70.9 fl (35.1-43.9); Red Blood Count 2.33 M/mm3 (4.2-5.4); White Blood Count 18.2 K/mm3 (4.4-11.0)
[2019-01-16 16:09] LABS: Differential Indicated MANUAL DIFF
[2019-01-16 16:12] LABS: International Normalized Ratio 1.2; Prothrombin Time (Protime)PT. 14.8 SECONDS (11.7-14.9)
[2019-01-16 16:13] LABS: Partial Thromboplast Time 27.9 Seconds (24.1-36.2)
[2019-01-16 16:26] LABS: Anion Gap 8 (5-15); BUN 47 mg/dL (7-18); BUN/Creat Ratio 34.8 RATIO (10-20); Calcium,Total 8.9 mg/dL (8.5-10.1); Chloride 103 mmol/L (98-107); Creatinine, Serum 1.35 mg/dL (0.55-1.02); EST Glomerular Filtration Rate 41 mL/min (>60); Est Glom Filt Rate - Afr Amer 49 mL/min (>60); Estimated Creatinine Clearance 31.57 ml/min; Glucose 141 mg/dL (74-106); Potassium 4.1 mmol/L (3.5-5.1); Sodium Level 137 mmol/L (136-145)
[2019-01-16 16:30] LABS: Lymphocyte 13 % (19-41); Monocyte 3 % (0-10); Neutrophil-Band 1 % (0-5); Neutrophil-Segmented 83 % (47-70); Total Cells Counted 100 (MANUAL DIFF)
[2019-01-16 16:31] LABS: Anisocytosis 2+; Hypochromasia 1+
[2019-01-16 16:32] LABS: Platelet Estimate ADEQUATE (ADEQ); Platelet Morphology LARGE
[2019-01-16 16:34] LABS: Absolute Lymphocyte Count 2.37 X10^3/uL (0.83-4.51); Absolute Neutrophil Count 15.3 X10^3/uL (2.0-7.7)
[2019-01-16] MEDS: LORazepam 2 MG/ML Syringe 0.5 MG IV (18:04)
--- NOTE | 2019-01-16 18:05 | RAD_ITS ---
STUDY: X-RAY CHEST REASON FOR EXAM: Female, 73 years old. Dizziness with heart valve replacement. TECHNIQUE: Single AP portable view of the chest. COMPARISON: 31 Jul 2018 FINDINGS: Left pacer in place with leads overlying the right atrium. Valvular prosthesis is in place overlying the central chest. Sternotomy wires are midline. Minimal prominent pulmonary vascularity is noted with no evidence of airspace disease or effusion. There is no demonstrated pleural abnormality. There is mild cardiac enlargement. Normal mediastinum and derek. Normal visualized pulmonary arteries. Normal visualized aortic arch and descending thoracic aorta. Normal visualized thoracic spine. Normal visualized ribs, clavicles, and shoulders. There is no demonstrated abnormality of the visualized soft tissue structures of the upper abdomen. RAD/Chest 1 View (Portable) IMPRESSION: Minimal prominent pulmonary vascularity with no evidence of focal airspace disease. Electronically Signed: Alban Le DO at 18:31 EDT , Service support ,
--- NOTE | 2019-01-16 19:20 | ED.RN ---
Notified Dr. Goodson of pt's blood pressures, 95/52,98/47,88/39. ordered to place another iv and give 500ml bolus.
[2019-01-17 12:09] LABS: Pathologist Review Reviewed
== END 2019-01-16 20:18 | disposition short-term general hospital (02) ==
LOC: ED 15:47
PROVIDERS: Emergency Medicine; Emergency Provider Emergency Medicine; Family Provider Family Medicine; PCP Family Medicine
DX: K92.2 Gastrointestinal hemorrhage, unspecified (principal); Z79.02 Long term (current) use of antithrombotics/antiplatelets; Z82.49 Family history of ischemic heart disease and other diseases of the circulatory system; Z87.891 Personal history of nicotine dependence; Z88.0 Allergy status to penicillin; Z88.5 Allergy status to narcotic agent; Z88.8 Allergy status to other drugs, medicaments and biological substances; Z95.2 Presence of prosthetic heart valve
CPT/HCPCS: 36430; 71045; 80048; 82274; 85025; 85610; 85730; 86850; 86900; 86901; 86920; 86922; 96361; 96365; 96374; 99285; J7030; J7050; P9016; A4216

== ENCOUNTER → 2019-02-15 08:30 | Outpatient (CLI) | payer MEDICARE, OTHER, SELFPAY ==
[2019-01-26 12:32] VITALS: BMI 35.1
[2019-02-09 13:36] VITALS: BMI 34.4
--- NOTE | 2019-02-15 08:42 | CR.HP_ITS ---
CR - History & Physical - General Arrival date:: 02/15/19 Arrival time:: 08:40 Date of Referral:: 01/04/19 Date of CR Evaluation:: 02/15/19 Referring Physician: DR. DAVE Primary Diagnosis: AORTIC VALVE REPLACEMENT - History of Present Cardiac Event Onset Date: Enter Onset Date of cardiac illnesses in Comment field below Current stable Angina Pectoris:: No Acute Myocardial Infarction within 12 months:: No Coronary Artery Bypass Graft:: No Heart valve replacement or repair:: Yes - 2009 MV REPLACEMENT AND AORTIC VALVE REPLACEMENT PTCA or coronary stenting:: No Heart or Heart-Lung Transplant:: No Heart Failure EF <35%:: No Type of Symptoms:: FATIGUE AND SOB Interventions with present event:: AORTIC VALVE REPLACEME Were there any complications?: NONE - Medications Home Medications: Ambulatory Orders Medication Instructions Recorded Vit C/E/Zn/Coppr/Lutein/Zeaxan 1 ea PO BID 10/24/16 [Preservision Areds 2 Softgel] albuterol sulfate HFA 90 2 puff INHALATION Q6H PRN PRN 06/11/17 mcg/actuation aerosol inhaler fluticasone 250 mcg-salmeterol 50 1 inh INHALATION Q12H 06/11/17 mcg/dose blistr powdr for inhalation levothyroxine 50 mcg tablet 50 mcg PO DAILY tab 06/11/17 ferrous sulfate 325 mg (65 mg 325 mg PO BID tab 05/14/18 iron) tablet,delayed release Cetirizine HCl [Zyrtec] 10 mg PO DAILY 06/01/18 Cholecalciferol (VIT D3) [Vitamin 1,000 unit PO DAILY 06/01/18 D3] Ascorbic Acid [Vitamin C] 1,000 mg PO DAILY 07/21/18 Potassium Chloride [Klor-Con M20] 20 meq PO BID 07/21/18 Pantoprazole Sodium [Protonix] 40 mg PO BID #60 tab 07/24/18 fenofibrate nanocrystallized 145 145 mg PO DAILY #90 tab 09/21/18 mg tablet docusate sodium 100 mg capsule 100 mg PO BID 01/24/19 furosemide 40 mg tablet 40 mg PO DAILY #180 tab 02/07/19 - Allergies Allergies/Adverse Reactions: Allergies Penicillins Allergy (Severe, Verified 01/26/19 12:32) Hives swelling of tongue and throat codeine Adverse Reaction (Severe, Verified 01/26/19 12:32) HALLUCINATIONS morphine Adverse Reaction (Severe, Verified 01/26/19 12:32) HALLUCINATIONS Yoxzqbw-Pua-Jtx Reductase Inhibitor Adverse Reaction (Severe, Verified 01/26/19 12:32) Other leg cramps - Sleep Disorder Evaluation Hx of Sleep Apnea: Yes STOP Results: PT WEARS HER CPAP NIGHTLY Advanced Directives - Advanced Directives Power of Manufacturing Engineering Technologist: Yes - PT STATES HER ADVCED DIRECTIVES SHOULD ALL BE ON FILE HERE AT [facility] Living Will: Yes Advance Directives Information Provided: Yes Advance Directives on File: Yes DNR Order?:: No Past Medical History - Past Medical Illness Medical History: Past Medical History (Last Reviewed 01/26/19 @ 13:39 by Jr Dave MD) Iron deficiency anemia due to chronic blood loss (Chronic) D50.0 Rheumatic aortic stenosis with insufficiency (Chronic) I06.2 Rheumatic mitral stenosis with insufficiency (Chronic) I05.2 Persistent atrial fibrillation (Chronic) I48.1 Non-ischemic cardiomyopathy (Chronic) 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) I50.42, I38 Non-rheumatic tricuspid valve insufficiency (Chronic) I36.1 Secondary pulmonary arterial hypertension (Chronic) I27.21 Essential (primary) hypertension (Chronic) I10 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 DVT of lower extremity, bilateral I82.403 GI AVM (gastrointestinal arteriovenous vascular malformation) K55.20 cauterized July 2018 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, liver and left eye Hypothyroidism E03.9 Obesity E66.9 Osteoarthritis M19.90 Rheumatic fever I00 Sleep apnea G47.30 Dyspnea on exertion (Resolved) R06.09 Thrombocytosis D47.3 Upper GI bleed K92.2 Anemia (Inactive) D64.9 Chronic diastolic (congestive) heart failure (Inactive) I50.32 - Past Surgical History Surgical History: Past Surgical History (Last Reviewed 01/26/19 @ 13:39 by Jr Dave MD) History of aortic valve replacement with bioprosthetic valve (Chronic) Onset Date: 01/04/19 Z95.3 AVR w/ #23 Biocor prosthetic valve 04/26/2009; Re-Do: TAVR-PATRICIA w/ 23 mm ES S3 valve within a [address] [place]i tissue valve 01/04/2019 History of mitral valve replacement with bioprosthetic valve (Chronic) Onset Date: 04/26/09 Z95.3 MVR w/ # 31 Biocar prosthetic valve 04/26/2009 History of permanent cardiac pacemaker placement (Chronic) Onset Date: 01/10/15 Z95.0 S/P AV node ablation 12/2014 History of appendectomy Z90.49 History of cataract surgery Z98.49 History of hysterectomy Z90.710 History of left heart catheterization Onset Date: 11/12/18 Z98.890 mild non obstructive CAD History of radiofrequency ablation procedure for cardiac arrhythmia Onset Date: 01/10/15 Z98.890 AV Junction Ablation History of removal of cyst Z98.890 right breast History of tonsillectomy and adenoidectomy Z98.890 History of total abdominal hysterectomy Z90.710 Hx of cholecystectomy Z90.49 history bilateral cataract surgery tracheostomy Onset Date: 12/03/072007 Surgical History: - - Aortic and mitral valve replacement - Family History Summary Family History: Family History (Last Reviewed 01/26/19 @ 13:39 by Jr Dave MD) Brother Kidney disease Father Heart disease Prostate cancer Grandmother Breast cancer Social History - Smoking History Smoking Status: Former smoker Years Smokin Packs Smoked per Day: 2 Hx Smoking Cessation Date: 11/25/07 Hx Tobacco Use: Yes - Alcohol Use Alcohol Usage: Yes - OCCASIONAL - Substance Abuse Hx Substance Use: No - Occupation Occupation (List type of work in comments):: Retired - Hobbies, Recreation, Social Activities Hobbies: Walking, Other - [employer] Social Environment - Status Marital Status: - Current Living Arrangements Living Environment:: Alone - Children How many children do you have?: 2 Do any of your children live nearby?: Yes - Safety Do you feel safe in your surroundings?: Yes - Assistance Do you need any assistance at home?: NONE Review of Systems - Review of Systems Hints: Right click = Denies ([place]ash). Left click = Reports ([place]) Review of Present Symptoms: Reports: Shortness of Breath with Exertion, Wound Healing - HAD TAVR PROCEDURE, Fatigue, Heart Arrhythmia/Irregularities - A FIB OFF AND ON, Appetite - Normal, Sleep - Normal. Denies: Shortness of Breath at Rest, PVD, Operative Discomfort, Angina, Dizziness/Lightheadedness, Appetite - Special Diet - Pain Is Patient Pain Free?: Yes Risk Factor Assessment - Chief Complaint Chief Complaint: POST AORTIC VALVE REPLACEMENT (TAVR) HERE TODAY FOR CR EVALUATION - Vital Signs Temperature: 98.6 F Respiratory Rate: 20 Pulse Ox: 95 Blood Pressure: 128/78 Nailbeds:: PINK - Pulse Pulse Rate: 60 Pulse Rhythm: Irregular - SLIGHTLY IRREGULAR - Hypertension How long have you been treated?: 40 YEARS On medication(s)?: PT STATES SHE IS NO LONGER ON B/P MED Blood Pressure Sitting - Left Arm: 128/78 - Stress Stress: Home/Family - SON HAVING PERSONAL ISSUE - Diabetes Nutrition Referral for Diabetes: No - Obesity Height: 5 ft 4.5 in Weight:: 208 lb Weight in Pounds: 208.0 lbs Weight Source: Stated by Patient Body Mass Index (BMI): 35.1 Nutritional Referral for Obesity: No - Physical Inactivity Physical Inactivity: None - Risk Stratification Risk Guidelines: Lowest Risk: Risk Factor for Smoking, Risk Factor for Diabetes, Risk Factor for Hypertension, Risk Factor for Depression, Moderate Risk: Risk Factor for Dyslipidemia - HIGH TRIGLYCERIDES, Risk Factor for Sedentary Lifestyle - LIMITED ACTIVITY DUE TO CURRENT SOB WITH EXERTION, Highest Risk: Risk Factor for Obesity - BMI 35.1 - For Smoking Smoking Risk Guidelines: Smoking Low Risk: None or quit greater than 6 months ago. Smoking Moderate Risk: Smoker or quit 6 months or less ago. Smoking High Risk: Smoker - For Dyslipidemia Dyslipidemia Risk Guidelines: Low Risk: Moderate Risk: High Risk: 15-25% fat 25.1-29% fat >/= 30% fat. <7% sat fat 7-9% sat fat >9% sat fat. <150 mg chol 150-299 mg chol >/= 300 mg chol. LDL <100 LDL 100-129 LDL >/= 130. Chol/HDL ratio <5.0 Chol/HDL ratio 5.0-6.0 Chol/HDL ratio >6.0. Triglycerides <100 Triglycerides 100- 149 Triglycerides >/= 150 - For Diabetes Mellitus Diabetes Risk Guidelines: Diabetes Low Risk: HgA1c <6.5% and/or FBG <120. Diabetes Moderate Risk: HgA1c 6.6-7.9% and/or FBG 120-180. Diabetes High Risk: HgA1c >/= 8% and/or FBG >180 - For Obesity/Overweight Obesity/Overweight Risk Guidelines: Obesity Low Risk: BMI <25.0. Obesity Moderate Risk: BMI 25-29.9. Obesity High Risk: BMI >/= 30.0 - For Hypertension Hypertension Risk Guidelines: Hypertension Low Risk: Systolic <120 and Diastolic <80. Hypertension Moderate Risk: Systolic 120-139 and Diastolic 80-89. Hypertension High Risk: Systolic >/= 140 and Diastolic >/= 90 - For Sedentary Lifestyle Sedentary Lifestyle Risk Guidelines: Sedentary Lifestyle Low Risk: >/= 1,500 kcal/week. Sedentary Lifestyle Moderate Risk: 700-1,499 kcal/week. Sedentary Lifestyle High Risk: < 700 kcal/week - For Depression Depression Risk Guidelines: Depression Low Risk: Not clinically depressed. Depression Moderate Risk: Mildly depressed. Depression High Risk: Clinically depressed - Family History Family History: Family History (Last Reviewed 01/26/19 @ 13:39 by Jr Dave MD) Brother Kidney disease Father Heart disease Prostate cancer Grandmother Breast cancer Motivation - Motivation to Participate On a scale of 1 to 10, how prepared are you to commit to attending program?: 10 What do you see as barriers to successfully being able to complete the program?: JUST MY BREATHING What do you see as the benefits of succesfully completing the program? In other words, what do you hope to get out of participating in the program?: DECREASED FATIGUE Are there issues you are dealing with that will interfere with completing the program?: NONE Do you have a spouse or signficant other, family or friends who will help support you to complete the program?: CHILDREN
--- NOTE | 2019-02-15 08:43 | CR.ITP_ITS ---
General Information - General Information Admitting Diagnosis: AORTIC VALVE REPLACEMENT - Education/Goals Barriers to Learning: None Individual Counseling: Initial Assessment: Overweight/Obesity, Metabolic Syndrome (as evidenced by 3 of 5 A-E below), Sedentary Lifestyle, Stress Cardiac Rehabilitation Goals: 1. Maintain the individual as the primary focus of care. 2. To improve the patient's quality of life. 3. Identification of cardiac risk factors and provide cardiac risk factor management. 4. Enhance the psychosocial status of the patient. 5. Reconditioning enough to allow the patient to resume customary activities. 6. Control symptoms of cardiac disease Scale for measuring improvement of personal goals: Enter appropriate number in Comments. 2 = Unchanged. 3 = Slightly Better. 4 = Moderate Improvement. 5 = Met my Goal Personal Goals: Initial Assessment: Improve energy level, Improve muscle strength and endurance, Improve diet and eating habits (eat healthier), Control risk factors (learn risk factor modification) Exercise - Initial Assessment - Visit Date of Eval: 02/15/19 - Stages of Change Stages of Change:: Action - Physician Prescribed Exercise Modalities: Treadmill, Biodyne, Rower, Airdyne, NuStep, SciFit Frequency (days/week): 3x/week for 12 weeks [36 sessions] Intensity: 60-80% age predicted maximum heart rate reserve Target Heart Rate:: 95-124 - Hypertension Do any of the following apply?: No Resting Blood Pressure:: 128/78 - Intervention Home Exercise/Activity Goal:: Sitting Time <3 hrs/day - Education Goals:: Warm-up, RPE KAIA Scale, S/S, Safe Exercise, Self-Monitoring Nutrition - Initial Assessment - Program Goals Nutrition Program Goals: LDL <70. Total Cholesterol <200. HDL >45. Triglycerides <150. HgbA1C <7%. BMI <25 - Visit Date of Assessment:: 02/15/19 - Stages of Change Stages of Change:: Action - LAST CHOL PROFILE 2018 - Diabetes Diabetes:: No - Weight Management Height: 5 ft 4.5 in Weight:: 208 lb - Intervention Referral to dietitian:: No Referral to Diabetic Clinic:: No Will attend diet classes:: Yes - CR CLASSES - Education Gave educational materials for:: Signs & symptoms of hypoglycemia, Signs & symptoms of hyperglycemia, Relate diabetes to coronary artery disease, Healthy eating Tobacco - Initial Assessment - Program Goals Tobacco Program Goals: Complete smoking cessation. Attend education classes. Improve Knowledge Test score - Stage of Change Stages of Change:: Action - Learning Barriers Learning Barriers: Ready to Learn - Family Support Do you have family support?: Yes - Tobacco Use Tobacco Use: Non-smoker How long ago did you quit using tobacco products?: Greater than or equal to 6 months ago Years Smokin Do you use smokeless tobacco?: No - Education Attended class for:: Treating Heart Disease, How The Heart Works, What it means to have Heart Disease, How Coronary Artery Disease is Diagnosed, Heart Procedures, What Heart Medications Do, Risk Factors & Modifications, Living an Active Life, Nutrition, Emotions & Heart Disease, Stress Management & Relaxation, Sleep Disorders & Heart Disease - PT INFORMED OF THE 'ON-LINE' EDUCATION MATERIAL AVAILABLE Psychosocial - Initial Assess - Target Goals Target Goals: Assess presence or absence of depression. Using a valid screening tool, maximizes coping skills. Positive support system - Stages of Change Stages of Change:: Action - Psychosocial Test Tool Used:: HANDS Depression Questionnaire - Intervention PS - Interventions: Yes Attend Stress Management Classes - CR CLASSES, Yes Uses Stress Management Skills - CR CLASSES, No Referral to Mental Health, No Referral to [facility] Case Management, No Referral to Physician - Education Gave educational materials for:: Coping techniques, Signs & symptoms of depression, Stress management, Relaxation techniques - Assistive Devices Assistive Devices:: None Fall Risk Assessed:: Yes Patient Health Questionnaire Initial Assessment 1. Little interest or pleasure in doing things: More than half the days 2. Feeling down, depressed, or hopeless: Several days 3. Trouble falling or staying asleep, or sleeping too much: More than half the days 4. Feeling tired or having little energy: Nearly every day 5. Poor appetite or overeating: More than half the days 6. Feeling bad about yourself -- or that you are a failure or have let yourself or your family down: More than half the days 7. Trouble concentrating on things, such as reading the newspaper or watching television: Not at all 8. Moving or speaking so slowly that other people could have noticed. Or the opposite - being so fidgety or restless that you have been moving around a lot more than usual: Not at all 9. Thoughts that you would be better off , or of hurting yourself in some way: Not at all How difficult have these problems made it for you to do your work, take care of things at home, or get along with other people?: Somewhat difficult Total Score: 12 BOY-Q SV Test - Statements CAD is a disease of the arteries in the heart: False Examples of risk factors for heart disease: True Angina is chest pain or discomfort: True The benefits of resistance training include: True Eating more meat and dairy products: False Anti-platelet medications such as aspirin are important: True The only effective way to manage stress: False An exercise warm-up slowly increases heart rate: True Prepared, processed foods usually have high sodium: True Depression is common after a heart attack: I Don't Know The statin medications lower cholesterol: True To control blood pressure, lower the amount of sodium: True If someone gets chest discomfort during walking: False Transfats are partially hydrogenated vegetable oils: True Sleep apnea that is not treated increases the risk: False To control cholesterol, one should become a vegetarian: False Someone knows if he/she is exercising at the right level: I Don't Know Diabetes cannot be prevented with exercise & health eating: I Don't Know Stress is a large risk for heart attack: True A diet that can help lower blood pressure is rich in: True - Total Score Total Correct Responses: 17 Self-Efficacy Initial Assessment We would like to know how confident you are in doing certain activities. Please select your confidence level for:: Select your confidence level for the followin g using the scale 1-10 where 1 is not at all confident and 10 is totally confident. Your score is the average of all 6 responses. Fatigue: How confident are you that you can keep the fatigue caused by your disease from interfering with the things you want to do? Select Number: 2 Physical Discomfort or Pain: How confident are you that you can keep the physical discomfort or pain of your disease from interfering with the things you want to do? Select Number: 6 Emotional Distress: How confident are you that you can keep the emotional distress caused by your disease from interfering with the things you want to do? Select Number: 6 Other Symptoms or Health Problems: How confident are you that you can keep other symptoms or health problems from interfering with the things you want to do? Select Number: 4 Different Tasks and Activities: How confident are you that you can do the different tasks and activities needed to manage your health condition so as to reduce your need to see a doctor? Select Number: 6 Medication: How confident are you that you can do things other than just taking medication to reduce how much your illness affects your everyday life? Select Number: 8 Total Score:: 5 Nutrition Survey - Nutrition Survey Instructions Scoring Instructions: Scoring is as follows: Yes = 1 points. No = 0 point. Patient score that is >/=12 is considered to be at potential nutritional risk and could benefit from a referral to a registered dietitian. - Nutrition Survey Initial Have you lost >10 lbs over the past 2 months without trying?: No Are you following a special diet at home for diabetes, low fat, or low salt?: Yes Are you interested in meeting with a dietitian for help understanding your diet?: No Do you eat less than 3 meals a day?: No Do you eat fatty meats (somers, sausage, ribs, etc), fried foods, desserts, large amounts of salad dressings, margarine, butter, or cheese most days?: Yes Do you have food allergies? [Enter types in comment field]: No Do you eat in restaurants more than 3 times a week?: No Do you season food with salt, seasoning salt, or garlic salt?: Yes Do you used canned, boxed, frozen meals, or soups, seasoning packets?: Yes Total Score:: 4
[2019-02-15 09:27] VITALS: BP 128/78; PULSE 60; RESP 20; TEMP 37; O2SAT 95; BMI 35.1
[2019-02-15 09:54] VITALS: BP 128/78
== END ==
PROVIDERS: Family Provider Family Medicine; PCP Family Medicine; Referring Provider Internal Medicine Cardiovascular Disease; Visit Provider Internal Medicine Cardiovascular Disease
DX: Z95.2 Presence of prosthetic heart valve (principal)

== ENCOUNTER 2019-02-21 13:00 | Outpatient (RCR) | payer MEDICARE, OTHER, SELFPAY ==
[2019-02-15 09:27] VITALS: BMI 35.1
== END 2019-02-26 23:59 ==
LOC: CR 13:00
PROVIDERS: Family Provider Family Medicine; PCP Family Medicine; Referring Provider Internal Medicine Cardiovascular Disease; Visit Provider Internal Medicine Cardiovascular Disease
DX: D50.0 Iron deficiency anemia secondary to blood loss (chronic) (principal); I06.2 Rheumatic aortic stenosis with insufficiency; I05.2 Rheumatic mitral stenosis with insufficiency; Z95.3 Presence of xenogenic heart valve; Z95.0 Presence of cardiac pacemaker; I50.42 Chronic combined systolic (congestive) and diastolic (congestive) heart failure; I38 Endocarditis, valve unspecified; I36.1 Nonrheumatic tricuspid (valve) insufficiency
CPT/HCPCS: 93798

== ENCOUNTER 2019-03-21 13:00 | Outpatient (RCR) | payer MEDICARE, OTHER, SELFPAY ==
[2019-02-22 11:36] VITALS: BMI 34.1
--- NOTE | 2019-03-16 08:57 | PCM.CR.ITP ---
Exercise - 30-day Assessment - Visit Date of Eval: 03/16/19 Session #:: 6 - missed 5 sessions due to other medical reasons. - Stages of Change Stages of Change:: Action - Physician Prescribed Exercise Modalities: Treadmill, Airdyne, NuStep Frequency (days/week): 3 Duration (Minutes):: 30-45 Intensity: 60-80% age predicted maximum heart rate reserve METs - Progression: 0.5-1.0 MET, RPE 11-14 WEEK: 3 unchanged limited by shortness of breath Target Heart Rate:: 95-124 w max HR 97 - Hypertension Resting Blood Pressure:: 150/72 Peak Exercise Blood Pressure:: 150/72 Medication Changes:: No - Intervention Home Exercise/Activity Goal:: Moderate Exercise 30 min/day x 5 days/wk - Education Goals:: Warm-up, RPE KAIA Scale, S/S, Safe Exercise, Self-Monitoring - Exercise Program Goals Exercise Program Goals: Aerobic Activity >30 min Nutrition - 30-Day Assessment - Program Goals Nutrition Program Goals: LDL <70. Total Cholesterol <200. HDL >45. Triglycerides <150. HgbA1C <7%. BMI <25 - Visit Date of Eval: 03/16/19 - Stages of Change Stages of Change:: Action - Lipids Has the patient seen the dietitian?: No - Diabetes Diabetes:: No - Weight Management Weight:: 204 lb 8 oz - unchanged - Intervention Referral to dietitian:: No Referral to Diabetic Clinic:: No Will attend diet classes:: Yes - Education Attended class for:: Healthy eating Tobacco - Initial Assessment - Program Goals Tobacco Program Goals: Complete smoking cessation. Attend education classes. Improve Knowledge Test score - Learning Barriers Learning Barriers: Ready to Learn Tobacco - 30-Day Assessment - Program Goals Tobacco Program Goals: Complete smoking cessation. Attend education classes. Improve Knowledge Test score - Stage of Change Stages of Change:: Action - Learning Barriers Learning Barriers: Participates in education - Family Support Do you have family support?: Yes - Tobacco Use Tobacco Use: Non-smoker Do you use smokeless tobacco?: No - Intervention Smoking Cessation Referral:: No Individual Education/Counseling:: No Education Schedule Given:: Yes - Education Attended class for:: Treating Heart Disease, How The Heart Works, What it means to have Heart Disease, How Coronary Artery Disease is Diagnosed, Heart Procedures, What Heart Medications Do, Risk Factors & Modifications Psychosocial - Initial Assess - Target Goals Target Goals: Assess presence or absence of depression. Using a valid screening tool, maximizes coping skills. Positive support system - Psychosocial Test Tool Used:: HANDS Depression Questionnaire - Assistive Devices Fall Risk Assessed:: Yes Psychosocial - 30-Day Assess - Target Goals Target Goals: Assess presence or absence of depression. Using a valid screening tool, maximizes coping skills. Positive support system - Stages of Change Stages of Change:: Action - Psychosocial Test Tool Used:: HANDS Depression Questionnaire - Intervention PS - Interventions: Yes Attend Stress Management Classes, Yes Uses Stress Management Skills, No Referral to Mental Health, No Referral to [facility] Case Management, No Referral to Physician - Education Attended classes for:: Coping techniques, Signs & symptoms of depression, Stress management, Relaxation techniques - Patient/Program Goal Preventative Medication(s):: Aspirin - patient reports compliance with daily medications, ROLANDO inhibitor, Clopidogrel, Beta josy, Statin/lipid - Assistive Devices Assistive Devices:: None Fall Risk Assessed:: Yes Patient Health Questionnaire 30-Day Re-eval Assessment 1. Little interest or pleasure in doing things: Several days 2. Feeling down, depressed, or hopeless: Not at all 3. Trouble falling or staying asleep, or sleeping too much: Several days 4. Feeling tired or having little energy: More than half the days 5. Poor appetite or overeating: Several days 6. Feeling bad about yourself -- or that you are a failure or have let yourself or your family down: Several days 7. Trouble concentrating on things, such as reading the newspaper or watching television: Not at all 8. Moving or speaking so slowly that other people could have noticed. Or the opposite - being so fidgety or restless that you have been moving around a lot more than usual: Not at all 9. Thoughts that you would be better off , or of hurting yourself in some way: Not at all How difficult have these problems made it for you to do your work, take care of things at home, or get along with other people?: Somewhat difficult Total Score: 6 Self-Efficacy 30-Day Re-eval Assessment We would like to know how confident you are in doing certain activities. Please select your confidence level for:: Select your confidence level for the following using the scale 1-10 where 1 is not at all confident and 10 is totally confident. Your score is the average of all 6 responses. Fatigue: How confident are you that you can keep the fatigue caused by your disease from interfering with the things you want to do? Select Number: 4 Physical Discomfort or Pain: How confident are you that you can keep the physical discomfort or pain of your disease from interfering with the things you want to do? Select Number: 7 Emotional Distress: How confident are you that you can keep the emotional distress caused by your disease from interfering with the things you want to do? Select Number: 9 Other Symptoms or Health Problems: How confident are you that you can keep other symptoms or health problems from interfering with the things you want to do? Select Number: 6 Different Tasks and Activities: How confident are you that you can do the different tasks and activities needed to manage your health condition so as to reduce your need to see a doctor? Select Number: 8 Medication: How confident are you that you can do things other than just taking medication to reduce how much your illness affects your everyday life? Select Number: 9 Total Score:: 7
[2019-03-16 09:09] VITALS: BP 150/72
== END 2019-03-29 23:59 ==
LOC: CR 13:00
PROVIDERS: Family Provider Family Medicine; PCP Family Medicine; Referring Provider Internal Medicine Cardiovascular Disease; Visit Provider Internal Medicine Cardiovascular Disease
DX: D50.0 Iron deficiency anemia secondary to blood loss (chronic) (principal); I06.2 Rheumatic aortic stenosis with insufficiency; I05.2 Rheumatic mitral stenosis with insufficiency; Z95.3 Presence of xenogenic heart valve; Z95.0 Presence of cardiac pacemaker; I50.42 Chronic combined systolic (congestive) and diastolic (congestive) heart failure; I38 Endocarditis, valve unspecified; I36.1 Nonrheumatic tricuspid (valve) insufficiency; I48.11 Longstanding persistent atrial fibrillation
CPT/HCPCS: 93798

== ENCOUNTER → 2019-04-27 11:30 | Outpatient (CLI) | payer MEDICARE, OTHER, SELFPAY ==
[2019-04-26 12:01] VITALS: BMI 35.4
[2019-04-27 12:09] LABS: Absolute Lymphocyte Count 0.93 X10^3/uL (0.83-4.51); Absolute Neutrophil Count 7.7 X10^3/uL (2.0-7.7); Basophil# 0.07 X10^3/uL; Basophil% 0.7 % (0-1); Hematocrit 49.9 % (37-47); Hemoglobin 15.8 g/dL (12.0-15.0); Lymphocyte # 0.93 X10^3/ul (4.0); Mean Corp Hgb Conc 31.7 g/dL (32-36); Mean Corpuscular Hgb 28.1 pg (27.0-32.0); Mean Corpuscular Volume 88.6 fL (81-99); Mean Platelet Vol. 9.8 fl (6.2-12.0); Monocyte# 1.41 X10^3/uL; Monocyte% 13.7 % (0-10); NRBC Flagged by Analyzer 0 % (0-5); Neutrophil # 7.74 X10^3/uL (2.7-7.7); Neutrophil % 75.1 % (47-70); Platelet Count 393 K/mm3 (150-450); RBC Distribution Width CV 15.1 % (11.6-14.6); RBC Distribution Width SD 49.1 fl (35.1-43.9); Red Blood Count 5.63 M/mm3 (4.2-5.4); White Blood Count 10.3 K/mm3 (4.4-11.0)
[2019-04-27 13:07] LABS: Hemoglobin A1c 6.9 % (4.2-6.3)
== END ==
PROVIDERS: PCP Family Medicine; Referring Provider Internal Medicine Cardiovascular Disease; Visit Provider Internal Medicine Cardiovascular Disease
DX: I47.2 Ventricular tachycardia (principal); E11.9 Type 2 diabetes mellitus without complications
CPT/HCPCS: 36415; 83036; 85025

== ENCOUNTER 2019-04-29 13:00 | Outpatient (RCR) | payer MEDICARE, OTHER, SELFPAY ==
[2019-02-22 11:36] VITALS: BMI 34.1
[2019-03-30 00:56] VITALS: BP 150/72
--- NOTE | 2019-04-15 06:53 | CR.ITP_ITS ---
Exercise - 60-Day Assessment - Visit Date of Eval: 04/15/19 Session #:: 19 - started CR on 02/16/2019 - Stages of Change Stages of Change:: Action - Physician Prescribed Exercise Modalities: Treadmill, NuStep, SciFit Frequency (days/week): 3 Duration (Minutes):: 30-45 Intensity: 60-80% age predicted maximum heart rate reserve METs - Progression: 0.5-1.0 MET, RPE 11-14 WEEK: 3.5 limited by exercise induced asthma Target Heart Rate:: 95-124 max HR 131 - Hypertension Resting Blood Pressure:: 164/52 Peak Exercise Blood Pressure:: 164/84 Medication Changes:: Yes - started Mexetine 150mg TID - Intervention Home Exercise/Activity Goal:: Moderate Exercise 30 min/day x 5 days/wk - Education Goals:: Warm-up, RPE KAIA Scale, S/S, Safe Exercise, Self-Monitoring - Exercise Program Goals Exercise Program Goals: Aerobic Activity >30 min, B/P <130/80 Nutrition - 60-Day Assessment - Program Goals Nutrition Program Goals: LDL <70. Total Cholesterol <200. HDL >45. Triglycerides <150. HgbA1C <7%. BMI <25 - Visit Date of Eval: 04/15/19 - Stages of Change Stages of Change:: Action - Lipids Has the patient seen the dietitian?: Yes - Diabetes Diabetes:: No Insulin: No Non-Insulin Dependent?: No - Weight Management Weight:: 204 lb 8 oz - unchanged - Intervention Referral to dietitian:: No Referral to Diabetic Clinic:: No Will attend diet classes:: Yes - Education Attended class for:: Healthy eating Tobacco - Initial Assessment - Program Goals Tobacco Program Goals: Complete smoking cessation. Attend education classes. Improve Knowledge Test score - Learning Barriers Learning Barriers: Ready to Learn Tobacco - 60-Day Assessment - Program Goals Tobacco Program Goals: Complete smoking cessation. Attend education classes. Improve Knowledge Test score - Stage of Change Stages of Change:: Action - Learning Barriers Learning Barriers: Participates in education - Family Support Do you have family support?: Yes - Tobacco Use Tobacco Use: Non-smoker Do you use smokeless tobacco?: No - Intervention Smoking Cessation Referral:: No Individual Education/Counseling:: No Education Schedule Given:: Yes - Education Attended class for:: Treating Heart Disease, How The Heart Works, What it means to have Heart Disease, How Coronary Artery Disease is Diagnosed, Heart Procedures, What Heart Medications Do, Risk Factors & Modifications, Living an Active Life, Nutrition Psychosocial - Initial Assess - Target Goals Target Goals: Assess presence or absence of depression. Using a valid screening tool, maximizes coping skills. Positive support system - Psychosocial Test Tool Used:: HANDS Depression Questionnaire - Assistive Devices Fall Risk Assessed:: Yes Psychosocial - 60-Day Assess - Target Goals Target Goals: Assess presence or absence of depression. Using a valid screening tool, maximizes coping skills. Positive support system - Stages of Change Stages of Change:: Action - Psychosocial Test Tool Used:: HANDS Depression Questionnaire - Intervention PS - Interventions: Yes Attend Stress Management Classes, Yes Uses Stress M anagement Skills, No Referral to Mental Health, No Referral to [facility] Case Management, No Referral to Physician - Education Attended classes for:: Coping techniques, Signs & symptoms of depression, Stress management, Relaxation techniques - Patient/Program Goal Preventative Medication(s):: Aspirin - patient reports taking prescribed medications., ROLANDO inhibitor, Clopidogrel, Beta josy, Statin/lipid - Assistive Devices Assistive Devices:: None Fall Risk Assessed:: Yes Patient Health Questionnaire 60-Day Re-eval Assessment 1. Little interest or pleasure in doing things: Several days 2. Feeling down, depressed, or hopeless: Not at all 3. Trouble falling or staying asleep, or sleeping too much: Several days 4. Feeling tired or having little energy: More than half the days 5. Poor appetite or overeating: Several days 6. Feeling bad about yourself -- or that you are a failure or have let yourself or your family down: Several days 7. Trouble concentrating on things, such as reading the newspaper or watching television: Not at all 8. Moving or speaking so slowly that other people could have noticed. Or the opposite - being so fidgety or restless that you have been moving around a lot more than usual: Not at all 9. Thoughts that you would be better off , or of hurting yourself in some way: Not at all How difficult have these problems made it for you to do your work, take care of things at home, or get along with other people?: Somewhat difficult Total Score: 6 Self-Efficacy 60-Day Re-eval Assessment We would like to know how confident you are in doing certain activities. Please select your confidence level for:: Select your confidence level for the following using the scale 1-10 where 1 is not at all confident and 10 is totally confident. Your score is the average of all 6 responses. Fatigue: How confident are you that you can keep the fatigue caused by your disease from interfering with the things you want to do? Select Number: 6 Physical Discomfort or Pain: How confident are you that you can keep the physical discomfort or pain of your disease from interfering with the things you want to do? Select Number: 8 Emotional Distress: How confident are you that you can keep the emotional distress caused by your disease from interfering with the things you want to do? Select Number: 9 Other Symptoms or Health Problems: How confident are you that you can keep other symptoms or health problems from interfering with the things you want to do? Select Number: 7 Different Tasks and Activities: How confident are you that you can do the different tasks and activities needed to manage your health condition so as to reduce your need to see a doctor? Select Number: 9 Medication: How confident are you that you can do things other than just taking medication to reduce how much your illness affects your everyday life? Select Number: 9 Total Score:: 8
[2019-04-15 06:58] VITALS: BP 164/52; BP 164/84
== END 2019-04-29 23:59 ==
LOC: CR 13:00
PROVIDERS: Family Provider Family Medicine; PCP Family Medicine; Referring Provider Internal Medicine Cardiovascular Disease; Visit Provider Internal Medicine Cardiovascular Disease
DX: D50.0 Iron deficiency anemia secondary to blood loss (chronic) (principal); I06.2 Rheumatic aortic stenosis with insufficiency; I05.2 Rheumatic mitral stenosis with insufficiency; Z95.3 Presence of xenogenic heart valve; Z95.0 Presence of cardiac pacemaker; I42.8 Other cardiomyopathies; I48.11 Longstanding persistent atrial fibrillation; I50.42 Chronic combined systolic (congestive) and diastolic (congestive) heart failure; I38 Endocarditis, valve unspecified; I36.1 Nonrheumatic tricuspid (valve) insufficiency
CPT/HCPCS: 93798

== ENCOUNTER 2019-05-25 14:15 | Outpatient (RCR) | payer MEDICARE, OTHER, SELFPAY ==
[2019-04-27 14:34] VITALS: BMI 35.4
[2019-04-30 00:50] VITALS: BP 164/52; BP 164/84
--- NOTE | 2019-05-18 06:56 | CR.ITP_ITS ---
Diagnosis - General Information Admitting Diagnosis: Heart Valve Replacement Personal Learning Style:: Audio/Visual, Written Barriers to Learning: Vision Impairment Stage of change r/t lifestyle modifications:: Action Gave educational material for:: Treating Heart Disease, Emotions & Heart Disease, Stress Management & Relaxation, Sleep Disorders & Heart Disease, How The Heart Works, What it means to have Heart Disease, How Coronary Artery Disease is Diagnosed, Heart Procedures, What Heart Medications Do, Risk Factors & Modifications, Living an Active Life, Nutrition - Education/Goals Individual Counseling: Initial Assessment: Abnormal Cholesterol Levels, High Blood Pressure, Overweight/Obesity Cardiac Rehabilitation Goals: 1. Maintain the individual as the primary focus of care. 2. To improve the patient's quality of life. 3. Identification of cardiac risk factors and provide cardiac risk factor management. 4. Enhance the psychosocial status of the patient. 5. Reconditioning enough to allow the patient to resume customary activities. 6. Control symptoms of cardiac disease Personal Goals: Initial Assessment: Improve energy level, Improve muscle strength and endurance, Improve diet and eating habits (eat healthier), Control risk factors (learn risk factor modification) Scale for measuring improvement of personal goals: Enter appropriate number in Comments. 2 = Unchanged. 3 = Slightly Better. 4 = Moderate Improvement. 5 = Met my Goal - Diagnosis & Disease Process Outcomes/Goals: Pt IDs own risk factors & lifestyle modifications by Session 10, Verbalizes symptoms of angina & response by session 3., Pt independently manages Plan/Interventions: Assist Pt to ID & engage in lifestyle modification to reduce CVD risk, Instruct on individual risk factors, Review symptoms of angina & emergency actions, Review secondary diagnosis & identify educational needs. 30 day Reassessments:: Progressing 30 day Reassessments:: Progressing 30 day Reassessments:: Progressing - Safety Referral to Physical Therapy: No Referral to [facility] Case Management: No Fall Risk Assessed:: Yes Assistive Devices:: None Exercise - 90-day Assessment - Visit Date of Eval: 05/18/19 Session #:: 31 - Physician Prescribed Exercise Modalities: Treadmill, Airdyne, NuStep Frequency: 3x/week for 12 weeks [36 sessions] Intensity: 60-80% of age predicted maximum heart rate reserve Current METSs:: 3.5 limited by exercise induced asthma Target Heart Rate:: 95-124 Target RPE 12-16:: Current RPE:: 11-13 Maximum Excercise HR:: 100 Resting Blood Pressure: 144/72 Maximum Exercise Blood Pressure: 162/76 EKG Type: Paced Rhtyhm with occasional PVCs. Current Physical Activity or Exercising minutes: Physically active at home - Outcomes & Goals Goals:: Verbalizes understanding of THR, RPE & goal METS by session 6, Documents in home exercise log/reports 30 min aerobic 5 day/wk by DC, Demonstrates accurate pulse taking by DC - Intervention & Plan Exercise Program Goals: Instruct on personal THR & RPE, Instruct on MET level & personal MET goal, Show patient to take own pulse /validate performance until accurate, Instruct on home exercise - 30-day Reassessments 30 day Reassessments:: Progressing - Physical Activity Home Exercise Physical Activity - Home Exercise: Safe Exercise, Warm-up, Self-monitoring, Cool-Down, Home Exercise > 30 min Daily, Sitting Time <3 hours/daily - Outcomes & Goals Outcomes/Goals: Demonstrates correct Warm-up/exercise Cool-Down (S3) if = 2.5 METs, Verbalizes symptoms of exercise intolerance by Session 3 (S3), Demonstrate safe equipment use (S3) & follows exercise prescrition (6) - Intervention & Plan Plan/Intervention: Instruct warm-up & cool-down if exercising at > 2 METs, Instruct on symptoms of exercise intolerance & actions to take, Instruct & monitor on saf, Assess intial functional capacity & safety risk - 30-day Reassessments 30 day Reassessments:: Progressing Nutrition - 90-Day Assessment - Program Goals Nutrition Program Goals: LDL <100 optimal. 100 - 129 Near optimal. 130 - 159 Borderline High. 160 - 189 High. Total Cholesterol <200 desirable. 200 - 239 Borderline High. >/= 240 High. HDL < 40 Low >/=60 High. Triglycerides <150 desirable. <199 optimal. VlDL 5 - 40. HgbA1C <7%. BMI <25 - Visit Date of Assessment:: 05/18/19 Session #:: 31 - Cholesterol/Lipids Triglycerides (mg/dL): 0 - no recent labs available Outcomes/Goals: Pt IDs own risk factors & lifestyle modifications by Session 10, Verbalizes symptoms of angina & response by session 3., Pt independently manages Intervention/Plan: Instruct on personal lipid levels & lipid goals/NCEP guidelines, Instruct on cholesterol Referral to dietitian:: Yes - Medical Nutrition Therapy 30-day Reassessments:: Progressing - Diabetes (Other Core Measures) Diabetes Type: Not Applicable - Weight Mgt (Other Care) Not Applicable: No Height: 5 ft 4.5 in Weight:: 204 lb BMI: 34.4 Diagnosis Overweight/Obesity BMI> 30% ICD-10 E66: Yes Diagnosis High BMI/Morbid Obesity BMI> 35% ICD-10 Z68: No Outcomes/Goals: Pt sets, maintains & shows weight loss goal & trend during rehab Intervention/Plan: Instruct on ideal BMI & set weight loss goal w/patient, Assist pt to ID & incorporate diet changes for weight loss by S9, Refer to Structured Weight Loss program as appropriate, Encourage goal of using 250- 300dcal per session for weight loss 30 day Reassessments:: Not Met - Patient has had no weight loss. - Healthy Eating Habits Will attend diet classes:: Yes Outcomes/Goals:: Consume diet rich in vegs,fruits,whole grain/high fiber,fish,lean meat, Limit sat/trans fats,cholesterol & added salts & sugars Intervention/Plan:: Assess current eating habits 30-day Reassessments:: Progressing - eating healthier foods, but no weight loss - Education Gave educational materials for:: Healthy eating Medical- 90-Day Assessment - Visit Date of Eval: 05/18/19 Session #:: 31 - Medication Compliance Preventative Medication(s):: Aspirin, Clopidogrel/P2Y12 inhibit, Statin/lipid, Beta josy H/O mental health issues: depression, anxiety, or addiction?: No Doesn?t believe in the benefits of treatment?: No Believes medications are unnecessary or harmful?: No Has a concern about medication side effects?: No Expresses concern over the cost of medications?: No Outcomes/Goals: Verbalizes medications,desired effect & common side effects @ DC, Pt self-reports following medication regimen, Keeps card in wallet w/medications listed by DC Interventions/plans: Instruct on medication effects & side effects, Review medication list w/patient every two weeks, Instruct importance of taking meds as ordered & assist problem solving 30-day Reassessments:: Met - Tobacco Use Tobacco Use: Non-smoker - Hypertension Hypertension Diagnosis:: Hypertension ICD-10 I10 Resting Blood Pressure:: 144/72 - highest resting 164/82 [place] [employer] Hypertension Guidelines: [place] [employer] Hypertension Guidelines. Normal BP Less than 120/80. Elevated BP 120/80. Hypertension Stage 1: BP 130-139/80-89. Hypertesnion Stage 2: BP 140 or higher/90 or higher. Hypertension Crisis: BP higher than 180/120 Peak Exercise Blood Pressure:: 162/76 Outcomes/Goals: Able to verbalize/achieve optimal blood pressure <130/80, Incorporates diet changes & exercise for blood pressure control by DC Interventions/plan: Instruct on optimal blood pressure, hypertension & medications, Instruct on effects of sodium, alcohol, stress, exercise &hypertension 30 day Reassessments:: Not Met - Resting BPs remain elevated. - Tobacco Cessation Referral Education Schedule Given:: Yes Psychosocial - 90-Day Assess - VIsit Date of Eval: 05/18/19 Session #:: 31 Not Applicable: Yes History of previous Mental disease:: No - Target Goals Target Goals: Assess presence or absence of depression. Using a valid screening tool, maximizes coping skills. Positive support system - Psychosocial Test Tool Used:: Vania Ortiz QOL Cardiac, PHQ-9 Questionnaire phq-9 Severity: Severity. 1-4 Minimal Depression. 5-9 Mild Depression. 10-14 Moderate Depression. 15-19 Moderately Sever Depression. 20-27 Severe Depression. Rule: - Referral to Behavioral Health PS - Interventions: Yes Attend Stress Management Classes, No Referral to Behavioral Health if PHQ-9 score >9:, No Referral to [facility], No Referral to Physician if PHQ-9 if score is 5-9: - Outcomes/Goals: See list Psychosocial Outcomes/Goals:: ID's personal stressors & 2 strategies to manage stress by discharge - Intervention/Plan: See List Interventions/Plan:: Assess stressors,coping strategies & signs of derpression on admission, Instruct/assist pt to develop coping & personal stress Mgt strategies, Instruct patient to recognize signs & symptoms of depression, Ins truct patient to recog - 30-day Reassessments: 30 day Reassessments:: Met - Patient using quiet time for herself. Patient Health Questionnaire 90-Day Re-eval Assessment 1. Little interest or pleasure in doing things: Not at all 2. Feeling down, depressed, or hopeless: Not at all 3. Trouble falling or staying asleep, or sleeping too much: Several days 4. Feeling tired or having little energy: Several days 5. Poor appetite or overeating: Not at all 6. Feeling bad about yourself -- or that you are a failure or have let yourself or your family down: Not at all 7. Trouble concentrating on things, such as reading the newspaper or watching television: Not at all 8. Moving or speaking so slowly that other people could have noticed. Or the opposite - being so fidgety or restless that you have been moving around a lot more than usual: Not at all 9. Thoughts that you would be better off , or of hurting yourself in some way: Not at all How difficult have these problems made it for you to do your work, take care of things at home, or get along with other people?: Not difficult at all Total Score: 2 Self-Efficacy 90-Day Re-eval Assessment We would like to know how confident you are in doing certain activities. Please select your confidence level for:: Select your confidence level for the following using the scale 1-10 where 1 is not at all confident and 10 is totally confident. Your score is the average of all 6 responses. Fatigue: How confident are you that you can keep the fatigue caused by your disease from interfering with the things you want to do? Select Number: 8 Physical Discomfort or Pain: How confident are you that you can keep the physical discomfort or pain of your disease from interfering with the things you want to do? Select Number: 10 Emotional Distress: How confident are you that you can keep the emotional distress caused by your disease from interfering with the things you want to do? Select Number: 10 Other Symptoms or Health Problems: How confident are you that you can keep other symptoms or health problems from interfering with the things you want to do? Select Number: 9 Different Tasks and Activities: How confident are you that you can do the different tasks and activities needed to manage your health condition so as to reduce your need to see a doctor? Select Number: 10 Medication: How confident are you that you can do things other than just taking medication to reduce how much your illness affects your everyday life? Select Number: 10 Total Score:: 9 Nutrition Survey - Nutrition Survey Instructions Scoring Instructions: Scoring is as follows: Yes = 1 points. No = 0 point. Patient score that is >/=12 is considered to be at potential nutritional risk and could benefit from a referral to a registered dietitian. - Nutrition Survey Discharge Have you lost >10 lbs over the past 2 months without trying?: No Are you following a special diet at home for diabetes, low fat, or low salt?: Yes Are you interested in meeting with a dietitian for help understanding your diet?: No Do you eat less than 3 meals a day?: No Do you eat fatty meats (somers, sausage, ribs, etc), fried foods, desserts, large amounts of salad dressings, margarine, butter, or cheese most days?: Yes Do you have food allergies? [Enter types in comment field]: No Do you eat in restaurants more than 3 times a week?: No Do you season food with salt, seasoning salt, or garlic salt?: No Do you used canned, boxed, frozen meals, or soups, seasoning packets?: Yes Total Score:: 3
[2019-05-18 07:06] VITALS: BP 144/72; BP 162/76; BMI 34.4
== END 2019-05-28 23:59 ==
LOC: CR 14:15
PROVIDERS: Family Provider Family Medicine; PCP Family Medicine; Referring Provider Internal Medicine Cardiovascular Disease; Visit Provider Internal Medicine Cardiovascular Disease
DX: D50.0 Iron deficiency anemia secondary to blood loss (chronic) (principal); I06.2 Rheumatic aortic stenosis with insufficiency; I05.2 Rheumatic mitral stenosis with insufficiency; Z95.3 Presence of xenogenic heart valve; Z95.0 Presence of cardiac pacemaker; I42.8 Other cardiomyopathies; I48.11 Longstanding persistent atrial fibrillation; I50.42 Chronic combined systolic (congestive) and diastolic (congestive) heart failure; I38 Endocarditis, valve unspecified; I36.1 Nonrheumatic tricuspid (valve) insufficiency
CPT/HCPCS: 93798

== ENCOUNTER → 2019-06-07 14:53 | Outpatient (CLI) | payer MEDICARE, OTHER, SELFPAY ==
[2019-05-18 07:06] VITALS: BMI 34.4
[2019-05-23 11:20] VITALS: BMI 33.7
--- NOTE | 2019-06-07 14:55 | ECHOD_ITS ---
Reason For Study: Valve replacement eval Procedure This was a 2D Doppler, Color Flow transthoracic echocardiogram. Exam performed in department. Left Ventricle Normal LV size. The estimated ejection fraction is 55 %. Mid-anteroseptal : Hypokinetic. [place] : Hypokinetic. The rest of the wall segments are normal. Apical wall motion abnormality may reflect pacemaker activation. Right Ventricle Normal RV size. ICD or pacer leads identified within the right ventricle. Normal systolic function. Atria The left atrium is moderately enlarged. The right atrium is moderately enlarged. Mitral Valve Peak transmitral valve gradient 22 mmHg. Mean transmitral valve gradient 6.8 mmHg. Stable appearing bioprosthetic mitral valve apparatus. Tricuspid Valve Normal tricuspid valve. Mild to moderate (1-2+) tricuspid valve insufficiency. Pulmonary artery systolic pressure is 40 mmHg. Aortic Valve Peak aortic valve gradient 44 mmHg. Mean aortic valve gradient 26 mmHg. Bioprosthetic aortic valve. MMode/2D Measurements & Calculations LVIDd: 5.2 cm IVSd: 1.3 cm LAV(MOD-bp): 97.0 ml LVIDs: 3.6 cm LVPWd: 1.1 cm RVDd: 3.9 cm FS: 30.0 % LAV(MOD-bp) Indexed: 50.2 ml/m2 LAV(MOD-sp2): 87.8 ml LAV(MOD-sp4): 92.3 ml LA A4 area: 26.8 cm2 LA dimension(2D): 4.1 cm RA A4 area: 28.8 cm2 Time Measurements MV dec time: 0.33 sec Doppler Measurements & Calculations MV E max dane: 188.3 cm/sec Lat Peak E' Dane: 4.9 cm/sec Med Peak E' Dane: 5.6 cm/sec MV A max dane: 94.8 cm/sec E/E' lat: 38.4 E/E' med: 33.4 MV E/A: 2.0 MV V2 max: 234.1 cm/sec Ao V2 max: 331.9 cm/sec LV V1 max: 113.4 cm/sec MV max P.0 mmHg Ao max P.1 mmHg LV V1 max P.1 mmHg MV V2 mean: 114.9 cm/sec Ao V2 mean: 246.6 cm/sec LV V1 mean P.2 mmHg MV mean P.8 mmHg Ao mean P.4 mmHg LV V1 mean: 85.6 cm/sec MV V2 VTI: 72.6 cm Ao V2 VTI: 71.5 cm LV V1 VTI: 24.7 cm PA V2 max: 100.4 cm/sec TR max dane: 294.6 cm/sec MV P1/2t-pr_phl: 136.1 msec TR max P.7 mmHg Interpretation Summary Normal LV size. The estimated ejection fraction is 55 %. Apical wall motion abnormality may reflect pacemaker activation. Mean transmitral valve gradient 6.8 mmHg. Pulmonary artery systolic pressure is 40 mmHg. Mean aortic valve gradient 26 mmHg. Compared to the previous the AVR has been replaced Ordering Physician: Luis^Jr^^^ Referring Physician: Lalita Stroud Performed By: Maricruz Ayala RDCS, RVT
== END ==
PROVIDERS: PCP Family Medicine; Referring Provider Internal Medicine Cardiovascular Disease; Visit Provider Internal Medicine Cardiovascular Disease
DX: I47.2 Ventricular tachycardia (principal)
CPT/HCPCS: 93306

== ENCOUNTER → 2019-06-08 12:35 | Outpatient (CLI) | payer MEDICARE, OTHER, SELFPAY ==
[2019-04-27 14:34] VITALS: BMI 35.4
[2019-05-18 07:06] VITALS: BMI 34.4
[2019-05-23 11:20] VITALS: BMI 33.7
== END ==
PROVIDERS: PCP Family Medicine; Referring Provider Internal Medicine Cardiovascular Disease; Visit Provider Internal Medicine Cardiovascular Disease
DX: I47.2 Ventricular tachycardia (principal)
CPT/HCPCS: 93225; 93226

== ENCOUNTER → 2019-07-27 09:56 | Outpatient (CLI) | payer MEDICARE, OTHER, SELFPAY ==
[2019-05-18 07:06] VITALS: BMI 34.4
[2019-07-15 15:09] VITALS: BMI 35.3
--- NOTE | 2019-07-27 09:58 | RAD_ITS ---
STUDY: X-RAY CHEST REASON FOR EXAM: Female, 73 years old. Sob TECHNIQUE: PA and lateral views of the chest. COMPARISON: Comparison is made with prior study dated January 16, 2019. FINDINGS: There is evidence of vascular congestion and mild degree of CHF. There is no demonstrated pleural abnormality. Sternal cerclage wires and vascular clips are present from a prior sternotomy and coronary artery bypass graft procedure (CABG). Moderate cardiomegaly. A left-sided unipolar pacemaker is seen. Normal mediastinum and derek. Normal visualized pulmonary arteries. There is atherosclerotic calcification of the aortic arch with tortuosity. There are diffuse degenerative changes of the visualized thoracic spine. Normal visualized ribs, clavicles, and shoulders. There is no demonstrated abnormality of the visualized soft tissue structures of the upper abdomen. RAD/Chest PA and Lateral IMPRESSION: Cardiomegaly and CHF. Electronically Signed: Nate Walker, at 11:12 EDT , Service support ,
[2019-07-27 12:14] LABS: Absolute Lymphocyte Count 1.08 X10^3/uL (0.83-4.51); Absolute Neutrophil Count 7.4 X10^3/uL (2.0-7.7); Basophil# 0.12 X10^3/uL; Basophil% 1.1 % (0-1); Eosinophil# 0.23 X10^3/uL; Eosinophils% 2.2 % (0-5); Hematocrit 30.5 % (37-47); Hemoglobin 8.8 g/dL (12.0-15.0); Lymphocyte # 1.08 X10^3/ul (4.0); Lymphocyte % 10.3 % (19-41); Mean Corp Hgb Conc 28.9 g/dL (32-36); Mean Corpuscular Hgb 30.4 pg (27.0-32.0); Mean Corpuscular Volume 105.5 fL (81-99); Mean Platelet Vol. 9.6 fl (6.2-12.0); Monocyte# 1.59 X10^3/uL; Monocyte% 15.2 % (0-10); NRBC Flagged by Analyzer 0 % (0-5); Neutrophil # 7.35 X10^3/uL (2.7-7.7); Neutrophil % 70.2 % (47-70); POSITIVE DIFFERENTIAL YES; POSITIVE MORPHOLOGY YES; Platelet Count 588 K/mm3 (150-450); RBC Distribution Width CV 17.1 % (11.6-14.6); RBC Distribution Width SD 66.8 fl (35.1-43.9); Red Blood Count 2.89 M/mm3 (4.2-5.4); White Blood Count 10.5 K/mm3 (4.4-11.0)
[2019-07-27 12:22] LABS: BNP,B-Type NATRIURETIC PEPTIDE 194.6 pg/mL (0-100)
[2019-07-27 12:23] LABS: Differential Indicated SCAN CRITERIA MET
[2019-07-27 12:29] LABS: Anion Gap 8 (5-15); BUN 18 mg/dL (7-18); BUN/Creat Ratio 15.5 RATIO (10-20); Calcium,Total 9.1 mg/dL (8.5-10.1); Chloride 103 mmol/L (98-107); Creatinine, Serum 1.16 mg/dL (0.55-1.02); EST Glomerular Filtration Rate 48 mL/min (>60); Est Glom Filt Rate - Afr Amer 59 mL/min (>60); Glucose 126 mg/dL (74-106); Potassium 3.4 mmol/L (3.5-5.1); Sodium Level 140 mmol/L (136-145)
[2019-07-27 13:22] LABS: Platelet Estimate SLT INC (ADEQ); Red Cell Morphology NORM C+C NORMAL (NORM C&C)
[2019-07-27 14:58] LABS: Hemoglobin A1c < 3.5 % (4.2-6.3)
[2019-07-27 15:24] LABS: Ferritin 16 ng/mL (8-252); Iron 155 ug/dL (50-170); Iron Binding Capacity,Total 556 ug/dL (250-450); PERCENT IRON SATURATION 27.9 % (15.0-55.0)
== END ==
PROVIDERS: Internal Medicine Hematology & Oncology; PCP Family Medicine; Referring Provider Nurse Practitioner Family; Visit Provider Nurse Practitioner Family
DX: R06.00 Dyspnea, unspecified (principal); I50.42 Chronic combined systolic (congestive) and diastolic (congestive) heart failure; I38 Endocarditis, valve unspecified; E11.65 Type 2 diabetes mellitus with hyperglycemia; D50.0 Iron deficiency anemia secondary to blood loss (chronic)
CPT/HCPCS: 36415; 71046; 80048; 82728; 83036; 83540; 83550; 83880; 85025

== ENCOUNTER → 2019-08-30 12:44 | Outpatient (CLI) | payer MEDICARE, OTHER, SELFPAY ==
[2019-05-18 07:06] VITALS: BMI 34.4
[2019-07-15 15:09] VITALS: BMI 35.3
[2019-08-30 12:17] VITALS: BMI 33.5
--- NOTE | 2019-08-30 12:45 | CT_ITS ---
STUDY: LOW DOSE CT LUNG CANCER SCREENING REASON FOR EXAM: Female, 73 years old. SMOKER 42 YEAR 2-3 PPD, QUIT IN 2007, HX COPD ASTHMA RADIATION DOSAGE (If Supplied By Facility): CTDIvol = ( 3.40 ) mGy, DLP = ( 114.01 ) mGycm TECHNIQUE: No contrast was administered. Low dose technique was utilized (average mAS-38 and kVp 120). 1.25 mm axial source images with a slice interval of 1.25-mm were reconstructed in lung windows. 2.5 mm axial source images with a slice interval of 2.5-mm were reconstructed in lung windows. 5.0 mm axial source images with a slice interval of 5.0-mm were reconstructed in soft tissue windows. Nodule measured using lung windows on PACS and/or independent workstation with automated measurement of minimum and maximum diameter. Nodule measurement reported as average diameter rounded to the nearest whole number. Growth is defined as an increase ins size of greater than 1.5 mm. COMPARISON: Comparison is made with prior examination July 27, 2018. NODULES: Stable 1 cm x 0.7 cm noncalcified nodule in the posterior medial segment of the right lower lobe medially. This is seen on axial image #159. This is unchanged. Stable 4 mm calcified granuloma in the left lower lobe. Emphysema: There is evidence of emphysematous changes with centrilobular changes worse in the upper lobes. Endobronchial lesion: Aorta: Atherosclerotic calcification of the aortic arch. Coronary arteries: Prior CABG. A dual-chamber pacemaker is seen. Heart: Prior aortic valve replacement. Pulmonary artery: Mediastinal nodes: Small calcified mediastinal and hilar lymph nodes. Other chest and abdominal findings: CT/Low Dose CT Lung Screening IMPRESSION: Lung-RADS category 2 - Continue annual screening with LDCT in 12 months. IMPORTANT NOTES FOR USE: ACR Lung-RADS Version 1.0 Assessment Categories Release Date: July 25, 2013 Category: Coded 0-4 bases on nodule(s) with highest degree of suspicion. Negative screen is defined as categories 1 and 2; a positive screen is defined as categories 3 and 4. Category 3 and 4A nodules that are unchanged on interval CT should be coded as category 2, and individuals returned to screening in 12 months. Category 4X: Category 3 or 4 nodules with additional imaging findings that increase the suspicion of lung cancer, such as spiculation, GGN that doubles in size in 1 year, enlarged lymph notes, etc. Category Modifiers: S (significant finding unrelated to lung cancer) and C (prior history of treated lung cancer) may be added to the 0-4 Lung-RADS Electronically Signed: Nate Walker, at 13:30 EDT , Service support ,
== END ==
PROVIDERS: PCP Family Medicine; Referring Provider Nurse Practitioner Family; Visit Provider Nurse Practitioner Family
DX: Z12.2 Encounter for screening for malignant neoplasm of respiratory organs (principal); Z87.891 Personal history of nicotine dependence
CPT/HCPCS: G0297

== ENCOUNTER → 2019-10-07 09:43 | Outpatient (CLI) | payer MEDICARE, OTHER, SELFPAY ==
[2019-05-18 07:06] VITALS: BMI 34.4
[2019-09-27 12:11] VITALS: BMI 34.5
--- NOTE | 2019-10-07 09:47 | VDLE_ITS ---
Reason For Study: Pedal edema RIGHT LEFT GSV is normal. GSV is normal. CFV is compressible, spontaneous, competent CFV is compressible, spontaneous, competent, and demonstrates pulsatile venous flow. and demonstrates pulsatile venous flow. FV is compressible, spontaneous, competent FV is compressible, spontaneous, competent and demonstrates pulsatile venous flow. and demonstrates pulsatile venous flow. POP V is compressible, spontaneous, competent POP V is compressible, spontaneous, competent and demonstrates pulsatile venous flow. and demonstrates pulsatile venous flow. T/P Trunk is compressible. T/P Trunk is compressible. PTV is compressible. PTV is compressible. RT PerV is compressible. LT PerV is compressible. Procedure Exam performed in department. A preliminary report was called and/or faxed to [facility]. Interpretation Summary Deep veins of the lower extremities are bilaterally patent and compressible segmentally. There is no evidence of deep vein thrombosis on either side. Valvular competence appears intact within the proximal deep venous systems bilaterally. The great saphenous veins appear bilaterally patent and compressible segmentally. Pulsatile flow is noted in the deep venous system bilaterally, which may be indicative of elevated central venous pressure (i.e. congestive heart failure, tricuspid valve insufficiency, etc.). Clinical correlation is advised. Ordering Physician: Chon Alexandra Referring Physician: Lalita Stroud M.D. Performed By: Zuleika Stanley RVT and Student
== END ==
PROVIDERS: PCP Family Medicine; Referring Provider Internal Medicine Pulmonary Disease; Visit Provider Internal Medicine Pulmonary Disease
DX: R60.0 Localized edema (principal)
CPT/HCPCS: 93970

== ENCOUNTER → 2019-10-17 13:28 | Outpatient (CLI) | payer MEDICARE, OTHER, SELFPAY ==
[2019-05-18 07:06] VITALS: BMI 34.4
[2019-10-11 13:49] VITALS: BMI 35.3
--- NOTE | 2019-10-17 13:55 | RAD_ITS ---
STUDY: X-RAY CHEST REASON FOR EXAM: Female, 74 years old. SOB X 1 MONTH, COUGH TECHNIQUE: PA and lateral views of the chest. COMPARISON: 07/27/2019 FINDINGS: Stable appearance of a left subclavian pacemaker There are interstitial changes of the lungs. There is no demonstrated pleural abnormality. Sternal cerclage wires and vascular clips are present from a prior sternotomy and coronary artery bypass graft procedure (CABG). Normal mediastinum and derek. Normal visualized pulmonary arteries. Normal visualized aortic arch and descending thoracic aorta. Normal visualized thoracic spine. Normal visualized ribs, clavicles, and shoulders. There is no demonstrated abnormality of the visualized soft tissue structures of the upper abdomen. RAD/Chest PA and Lateral IMPRESSION: Chronic interstitial changes, no superimposed acute pulmonary process Electronically Signed: Joes Duncan MD at 14:04 EDT , Service support ,
[2019-10-17 15:15] LABS: Absolute Lymphocyte Count 0.68 X10^3/uL (0.83-4.51); Absolute Neutrophil Count 7.5 X10^3/uL (2.0-7.7); Basophil% 1.1 % (0-1); Eosinophil# 0.11 X10^3/uL; Eosinophils% 1.2 % (0-5); Hematocrit 34.9 % (37-47); Hemoglobin 10.6 g/dL (12.0-15.0); Lymphocyte # 0.68 X10^3/ul (4.0); Lymphocyte % 7.2 % (19-41); Mean Corp Hgb Conc 30.4 g/dL (32-36); Mean Corpuscular Hgb 28.4 pg (27.0-32.0); Mean Corpuscular Volume 93.6 fL (81-99); Mean Platelet Vol. 9.9 fl (6.2-12.0); Monocyte# 1.04 X10^3/uL; NRBC Flagged by Analyzer 0 % (0-5); Neutrophil # 7.47 X10^3/uL (2.7-7.7); Neutrophil % 78.7 % (47-70); Platelet Count 378 K/mm3 (150-450); RBC Distribution Width CV 19.8 % (11.6-14.6); RBC Distribution Width SD 64.3 fl (35.1-43.9); Red Blood Count 3.73 M/mm3 (4.2-5.4); White Blood Count 9.5 K/mm3 (4.4-11.0)
[2019-10-17 16:17] LABS: Anion Gap 7 (5-15); BUN 16 mg/dL (7-18); BUN/Creat Ratio 12.1 RATIO (10-20); Calcium,Total 8.9 mg/dL (8.5-10.1); Chloride 103 mmol/L (98-107); Creatinine, Serum 1.32 mg/dL (0.55-1.02); EST Glomerular Filtration Rate 42 mL/min (>60); Est Glom Filt Rate - Afr Amer 50 mL/min (>60); Glucose 156 mg/dL (74-106); Potassium 3.5 mmol/L (3.5-5.1); Sodium Level 137 mmol/L (136-145)
[2019-10-17 16:22] LABS: BNP,B-Type NATRIURETIC PEPTIDE 210.8 pg/mL (0-100)
== END ==
PROVIDERS: PCP Family Medicine; Referring Provider Nurse Practitioner Family; Visit Provider Nurse Practitioner Family
DX: R06.00 Dyspnea, unspecified (principal); I48.11 Longstanding persistent atrial fibrillation; I42.8 Other cardiomyopathies; I50.42 Chronic combined systolic (congestive) and diastolic (congestive) heart failure; I38 Endocarditis, valve unspecified
CPT/HCPCS: 36415; 71046; 80048; 83880; 85025

== ENCOUNTER → 2019-10-27 05:45 | Outpatient (CLI) | payer MEDICARE, OTHER, SELFPAY ==
[2019-05-18 07:06] VITALS: BMI 34.4
[2019-10-11 13:49] VITALS: BMI 35.3
--- NOTE | 2019-10-27 09:00 | STRESSREP ---
Stress Test Report Pharmacologic myocardial perfusion stress test. 74-year-old lady with a history of coronary artery disease and valvular disease. Stress protocol: Resting EKG demonstrates atrial fibrillation with ventricular paced rhythm at 60 bpm. 0.4 mg of regadenoson was infused per usual protocol followed up intravenous saline flush injection continuous EKG monitoring was performed. Maximum heart rate attained was 71 bpm which was 48% of maximal predicted heart rate the maximum workload was 1 metabolic equivalent. Patient maintained atrial fibrillation with a paced rhythm throughout the recording. The resting blood pressure was 128/80 final blood pressure was the same. Myocardial perfusion protocol. 13.9 mCi of technetium 99m sestamibi was injected at rest. 0.4 mg of regadenoson was infused per usual protocol. At peak infusion 45.4 mCi of technetium 99m sestamibi was injected stress images were obtained stress and rest images were reconstructed and compared in the short axis vertical long horizontal long axis. Gated images were also obtained P Perfusion SPECT analysis: Review of the stress images demonstrate normal uptake of tracer noted in all areas of the myocardium the resting images similar demonstrate normal uptake of tracer noted in all areas of myocardium. There is a small portion of the apex with reduced perfusion on the stress and rest images to a similar extent. No obvious reversibility is noted suggest ischemia no previous infarct is noted. Gated SPECT analysis: The gated ejection fraction is noted to be 60%. Conclusion: Normal pharmacologic myocardial perfusion stress test. Preserved ejection fraction.
[2019-10-27 09:04] LABS: Anion Gap 5 (5-15); BUN 19 mg/dL (7-18); BUN/Creat Ratio 12.3 RATIO (10-20); Chloride 104 mmol/L (98-107); Creatinine, Serum 1.54 mg/dL (0.55-1.02); EST Glomerular Filtration Rate 35 mL/min (>60); Est Glom Filt Rate - Afr Amer 42 mL/min (>60); Glucose 159 mg/dL (74-106); Potassium 3.4 mmol/L (3.5-5.1); Sodium Level 136 mmol/L (136-145)
== END ==
PROVIDERS: PCP Family Medicine; Referring Provider Nurse Practitioner Family; Visit Provider Nurse Practitioner Family
DX: R06.00 Dyspnea, unspecified (principal); I11.0 Hypertensive heart disease with heart failure; I50.42 Chronic combined systolic (congestive) and diastolic (congestive) heart failure; I38 Endocarditis, valve unspecified; I42.8 Other cardiomyopathies; Z95.3 Presence of xenogenic heart valve
CPT/HCPCS: 36415; 78452; 80048; 93017; A9500; A4216; J2785

== ENCOUNTER → 2019-11-01 10:31 | Outpatient (CLI) | payer MEDICARE, OTHER, SELFPAY ==
[2019-05-18 07:06] VITALS: BMI 34.4
[2019-10-11 13:49] VITALS: BMI 35.3
[2019-11-01 11:07] LABS: Anion Gap 7 (5-15); BUN 22 mg/dL (7-18); Calcium,Total 9.1 mg/dL (8.5-10.1); Chloride 100 mmol/L (98-107); Creatinine, Serum 1.84 mg/dL (0.55-1.02); EST Glomerular Filtration Rate 28 mL/min (>60); Est Glom Filt Rate - Afr Amer 34 mL/min (>60); Glucose 123 mg/dL (74-106); Potassium 3.9 mmol/L (3.5-5.1); Sodium Level 135 mmol/L (136-145)
== END ==
PROVIDERS: PCP Family Medicine; Referring Provider Internal Medicine Cardiovascular Disease; Visit Provider Internal Medicine Cardiovascular Disease
DX: R06.00 Dyspnea, unspecified (principal); Z95.0 Presence of cardiac pacemaker; I47.2 Ventricular tachycardia; I48.11 Longstanding persistent atrial fibrillation; I06.2 Rheumatic aortic stenosis with insufficiency; I05.2 Rheumatic mitral stenosis with insufficiency; Z95.3 Presence of xenogenic heart valve; I42.8 Other cardiomyopathies; I50.42 Chronic combined systolic (congestive) and diastolic (congestive) heart failure; I38 Endocarditis, valve unspecified; D50.9 Iron deficiency anemia, unspecified; K90.9 Intestinal malabsorption, unspecified
CPT/HCPCS: 36415; 80048; 96365; 96366; J1756; J7050; A4216

== ENCOUNTER → 2019-12-07 12:56 | Outpatient (CLI) | payer MEDICARE, OTHER, SELFPAY ==
[2019-05-18 07:06] VITALS: BMI 34.4
[2019-12-06 14:47] VITALS: BMI 38.4
[2019-12-07 13:51] LABS: Anion Gap 7 (5-15); BUN 15 mg/dL (7-18); Chloride 101 mmol/L (98-107); Creatinine, Serum 1.15 mg/dL (0.55-1.02); EST Glomerular Filtration Rate 49 mL/min (>60); Est Glom Filt Rate - Afr Amer 59 mL/min (>60); Glucose 99 mg/dL (74-106); Potassium 2.9 mmol/L (3.5-5.1); Sodium Level 138 mmol/L (136-145)
== END ==
PROVIDERS: Internal Medicine Hematology & Oncology; PCP Family Medicine; Referring Provider Internal Medicine Cardiovascular Disease; Visit Provider Internal Medicine Cardiovascular Disease
DX: I50.42 Chronic combined systolic (congestive) and diastolic (congestive) heart failure (principal)
CPT/HCPCS: 80048

== ENCOUNTER 2019-12-09 13:41 | Inpatient (IN) | payer MEDICARE, OTHER, SELFPAY ==
[2019-05-18 07:06] VITALS: BMI 34.4
[2019-12-09] VITALS (8 sets, daily range): BP systolic 120–138; BP diastolic 74–92; PULSE 60–121; RESP 16–26; TEMP 36.6–37.1; O2SAT 92–96; BMI 39.1; BMI 38.7
--- NOTE | 2019-12-09 13:50 | EKG12_ITS ---
Test Reason : EDEMA Blood Pressure : / mmHG Vent. Rate : 062 BPM Atrial Rate : 202 BPM P-R Int : 000 ms QRS Dur : 126 ms QT Int : 478 ms P-R-T Axes : 000 -89 103 degrees QTc Int : 485 ms Ventricular-paced rhythm Abnormal ECG Confirmed by LESLEY DAVE MD ([id number]), art editor MARU KAUR ([id number]) on 12/12/2019 1:16:14 PM Referred By: ZUNILDA Confirmed By:LESLEY DAVE MD
--- NOTE | 2019-12-09 13:51 | ED.RN ---
air scrubber turned on
[2019-12-09 14:16] LABS: Absolute Neutrophil Count 8.6 X10^3/uL (2.0-7.7); Basophil# 0.13 X10^3/uL; Basophil% 1.1 % (0-1); Eosinophil# 0.09 X10^3/uL; Eosinophils% 0.8 % (0-5); Hematocrit 44.1 % (37-47); Hemoglobin 13.3 g/dL (12.0-15.0); Lymphocyte % 7.8 % (19-41); Mean Corp Hgb Conc 30.2 g/dL (32-36); Mean Corpuscular Hgb 25.5 pg (27.0-32.0); Mean Corpuscular Volume 84.6 fL (81-99); Mean Platelet Vol. 9.4 fl (6.2-12.0); Monocyte# 1.79 X10^3/uL; Monocyte% 15.4 % (0-10); NRBC Flagged by Analyzer 0.6 % (0-5); Neutrophil # 8.61 X10^3/uL (2.7-7.7); Neutrophil % 74.2 % (47-70); POSITIVE DIFFERENTIAL YES; POSITIVE MORPHOLOGY YES; Platelet Count 413 K/mm3 (150-450); RBC Distribution Width CV 21.4 % (11.6-14.6); RBC Distribution Width SD 59.9 fl (35.1-43.9); Red Blood Count 5.21 M/mm3 (4.2-5.4); White Blood Count 11.6 K/mm3 (4.4-11.0)
--- NOTE | 2019-12-09 14:19 | RAD_ITS ---
STUDY: X-RAY CHEST REASON FOR EXAM: Female, 74 years old. CHF, lower extremity and abdominal edema TECHNIQUE: Single AP portable view of the chest. COMPARISON: Comparison is made with prior study dated 10/17/2019. FINDINGS: Mild degree of vascular congestion. Blunting of both costophrenic angles. Sternal cerclage wires and vascular clips are present from a prior sternotomy and coronary artery bypass graft procedure (CABG). A left-sided unipolar pacemaker is seen. Moderate cardiomegaly. Normal mediastinum and derek. Normal visualized pulmonary arteries. Normal visualized aortic arch and descending thoracic aorta. Normal visualized thoracic spine. There is degenerative osteoarthritis of the bilateral shoulders. There is no demonstrated abnormality of the visualized soft tissue structures of the upper abdomen. RAD/Chest 1 View (Portable) IMPRESSION: Cardiomegaly. Prior CABG. Mild degree of vascular congestion/CHF with blunting of both costophrenic angle. Electronically Signed: Nate Walker, at 14:44 EDT , Service support ,
[2019-12-09 14:21] LABS: Differential Indicated SCAN CRITERIA MET
[2019-12-09 14:32] LABS: ALB/GLOB Ratio 0.9 RATIO (0.9-2.4); AST(SGOT) 24 U/L (15-37); Alanine Aminotransfer ALT/SGPT 12 U/L (13-56); Albumin, Serum 3.6 g/dL (3.2-5.0); Alkaline Phosphatase 131 U/L (45-117); Anion Gap 8 (5-15); BUN 17 mg/dL (7-18); Calcium,Total 9.6 mg/dL (8.5-10.1); Chloride 103 mmol/L (98-107); Creatinine, Serum 1.31 mg/dL (0.55-1.02); EST Glomerular Filtration Rate 42 mL/min (>60); Est Glom Filt Rate - Afr Amer 51 mL/min (>60); Estimated Creatinine Clearance 32.04 ml/min; Glucose 91 mg/dL (74-106); Potassium 3.6 mmol/L (3.5-5.1); Protein, Total 7.6 g/dL (6.4-8.2); Sodium Level 138 mmol/L (136-145)
[2019-12-09 14:37] LABS: Anisocytosis 2+; Differential Comment SCANNED; Macrocytosis 1+; Microcytosis 1+
--- NOTE | 2019-12-09 14:37 | ED.DCSUM_ITS ---
- ER Visit Summary Date of Service: 12/09/19 Chief Complaint: Shortness of breath History of Present Illness: The patient is a [address] Smith and Dr. Stroud. She has a history of mitral valve and aortic valve replacement for rheumatic heart disease. She also has a history of CHF. She reports her shortness of breath began 2 weeks ago and is gradually worsened. Severe at worst mild currently. Is worsened by exertion and laying flat. Is relieved by rest. States that her goal weight is 199 pounds and today she was 229 pounds. Patient is on outpatient Lasix and has been taking this. In fact, she got an iron infusion 3 days ago and during this Dr. Smith had been given 160 mg of Lasix IV. That day she took a total of 220 mg of Lasix and only urinated 6 times. Her last echo was in May of this year and showed an ejection fraction of 55%. Patient denies any chest pain. She denies fever or chills. She does report she had a cough productive yellow sputum for the past 5 days. There is been no blood in her sputum. She denies any sick contacts or possible coronavirus exposure. Physical Examination: Vitals: Stable. Afebrile. General: Well-nourished and well-developed. Head: Normocephalic atraumatic. Neck: Supple, no lymphadenopathy. No JVD. Nontender. Cardiovascular: Regular rate and rhythm. 2 out of 6 systolic murmur. Respiratory: No respiratory distress. Clear to auscultation bilaterally. Abdominal: Soft, nontender, nondistended, normal bowel sounds. No guarding, rebound, or peritoneal signs. Back: Nontender. Extremities: Nontender, 3+ pitting edema lower extremities bilaterally that extends up into her lower abdomen. Skin: Normal color, no rash. Neurologic: Alert and oriented ?3. Cranial nerves II through XII are intact. Normal strength and sensation. Psych: Normal affect. Test Results: EKG is ventricular paced at 62. No acute changes. Troponin is negative. LFTs show total bili 1.6 and alk phos of 131. Chem-7 shows a creatinine 1.31. Creatinine is 1.16?1.84 in 2020. CBC shows a white count of 11.6 with 74 segs neutrophils, 8 lymphocytes, 15 monocytes. Chest x-ray shows CHF. Emergency Department Course and Treatment: Patient was discussed with Dr. Smith and placed on a Lasix drip at 10 mg an hour. Treatment Plan: Patient will be discussed with the hospitalist admitted for further evaluation and treatment. Disposition: Admitted in stable condition. Impression: 1. Anasarca. 2. CHF. 3. Chronic renal insufficiency. This note was generated with [employer] dictation software. It may contain incorrect words, spelling, and punctuation that were not noted in review of the chart prior to signing ED Disposition - Plan for ED Patient: Referrals: Lalita Stroud MD [Primary Care Provider] -
[2019-12-09] MEDS: Furosemide 500 MG in Empty Viaflex 50 mL 1 EACH CONT INF (14:39)
[2019-12-09 15:03] LABS: BNP,B-Type NATRIURETIC PEPTIDE 627.1 pg/mL (0-100)
--- NOTE | 2019-12-09 15:42 | HP.PCM_ITS ---
Problem List (1) Ascites Status: Acute (2) Dyspnea on minimal exertion Status: Chronic (3) History of permanent cardiac pacemaker placement Status: Chronic Comment: S/P AV node ablation 12/2014 (4) Longstanding persistent atrial fibrillation Status: Chronic (5) Non-sustained ventricular tachycardia Status: Chronic (6) Rheumatic aortic stenosis with insufficiency Status: Chronic (7) Rheumatic mitral stenosis with insufficiency Status: Chronic (8) History of aortic valve replacement with bioprosthetic valve Status: Chronic Comment: AVR w/ #23 Biocor prosthetic valve 04/26/2009; Re-Do: TAVR-PATRICIA w/ 23 mm ES S3 valve within a [address] 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 The patient is a 74 year old F who presents to the emergency room with increased shortness of breath, increased lower extremity swelling and reported 28 pound weight gain. She was seen in cardiology office today who referred her to the emergency room for hospital admission. Patient reports significant abdominal swelling. She denies chest pain. She reports chronic cough which she feels has worsened due to increased fluid. She denies fever, chills. Denies productive cough. Denies other associated symptoms. She has a history of rheumatic heart disease status post mitral valve replacement and aortic valve replacement, status post pacemaker placement, chronic combined systolic and diastolic heart failure, persistent atrial fibrillation, hypertension, hyperlipidemia, hypothyroidism, type 2 diabetes mellitus, iron deficiency anemia, CELESTINO, history of DVT. Past Medical History Past Medical History (Chronic Problems): Chronic Problems (Last Reviewed 12/09/19 @ 13:[address] 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) I50.42, I38 Non-rheumatic tricuspid valve insufficiency (Chronic) I36.1 Secondary pulmonary arterial hypertension (Chronic) I27.21 Essential (primary) hypertension (Chronic) I10 GI bleed (Chronic) Onset Date: 01/18/19 K92.2 Iron deficiency anemia due to chronic blood loss (Chronic) D50.0 Vertigo R42 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 DVT of lower extremity, bilateral I82.403 GI AVM (gastrointestinal arteriovenous vascular malformation) K55.20 cauterized July 2018 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, liver and left eye Hypothyroidism E03.9 Obesity E66.9 Osteoarthritis M19.90 Rheumatic fever I00 Sleep apnea G47.30 Dyspnea on exertion (Resolved) R06.09 Thrombocytosis D47.3 Upper GI bleed K92.2 Anemia (Inactive) D64.9 Chronic diastolic (congestive) heart failure (Inactive) I50.32 Allergies Penicillins Allergy (Severe, Verified 12/09/19 13:42) Hives swelling of tongue and throat codeine Adverse Reaction (Severe, Verified 12/09/19 13:42) HALLUCINATIONS morphine Adverse Reaction (Severe, Verified 12/09/19 13:42) HALLUCINATIONS Anjzkgk-Ouk-Nre Reductase Inhibitor Adverse Reaction (Severe, Verified 12/09/19 14:57) leg cramps leg cramps Home Medications: Ambulatory Orders Medication Instructions Recorded albuterol sulfate 90 mcg/actuation 2 puff INHALATION Q6H PRN PRN 06/11/17 aerosol inhaler fluticasone 250 mcg-salmeterol 50 1 inh INHALATION Q12H 06/11/17 mcg/dose blistr powdr for inhalation levothyroxine 50 mcg tablet 50 mcg PO DAILY tab 06/11/17 Cholecalciferol (VIT D3) [Vitamin 1,000 unit PO DAILY 06/01/18 D3] furosemide 40 mg tablet 80 mg PO BID tab 12/06/19 potassium chloride 20 mEq 40 meq PO BID #360 tab 12/07/19 tablet,extended release(part/cryst) Cetirizine HCl [Zyrtec] 10 mg PO DAILY 12/09/19 Metolazone 2.5 mg PO DAILY 12/09/19 Metoprolol Succinate 50 mg PO DAILY 12/09/19 Pantoprazole Sodium [Protonix] 40 mg PO DAILY 12/09/19 Surgical History: Surgical History (Last Reviewed 12/09/19 @ 15:49 by Letitia Anaya SUGAR MILL WORKER, [employer] WORKER-C) History of permanent cardiac pacemaker placement (Chronic) Onset Date: 01/10/15 Z95.0 S/P AV node ablation 12/2014 History of aortic valve replacement with bioprosthetic valve (Chronic) Onset Date: 01/04/19 Z95.3 AVR w/ #23 Biocor prosthetic valve 04/26/2009; Re-Do: TAVR-PATRICIA w/ 23 mm ES S3 valve within a [address] Rudi tissue valve 01/04/2019 History of mitral valve replacement with bioprosthetic valve (Chronic) Onset Date: 04/26/09 Z95.3 MVR w/ # 31 Biocar prosthetic valve 04/26/2009 Colon polyp K63.5 08/26/2019 EGD at [facility], colon polyp was clipped (recent bleeding) History of appendectomy Z90.49 History of cataract surgery Z98.49 History of hysterectomy Z90.710 History of left heart catheterization Onset Date: 11/12/18 Z98.890 mild non obstructive CAD History of radiofrequency ablation procedure for cardiac arrhythmia Onset Date: 01/10/15 Z98.890 AV Junction Ablation History of removal of cyst Z98.890 right breast History of tonsillectomy and adenoidectomy Z98.890 History of total abdominal hysterectomy Z90.710 Hx of cholecystectomy Z90.49 history bilateral cataract surgery tracheostomy Onset Date: 12/03/072007 Surgical History: - - Aortic and mitral valve replacement Psychiatric History: 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 psych hx 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 Lives: Alone Smoking Status: Former smoker Tobacco Use: Cigarettes Alcohol: None Drugs: None - *Family History Maternal Family History: Family History (Last Reviewed 12/09/19 @ 15:49 by Letitia Anaya [employer] MILL WORKER, [employer] MILL WORKER-C) Brother Kidney disease Father Heart disease Prostate cancer Grandmother Breast cancer History Items: - - anemia Paternal Family History: Family History (Last Reviewed 12/09/19 @ 15:49 by Letitia Anaya NP, [employer] MILL WORKER-C) Brother Kidney disease Father Heart disease Prostate cancer Grandmother Breast cancer History Items: Heart Disease Review of Systems Constitutional: Reports: Weight Change - +28 pounds, Fatigue. Denies: Chills, Fever HEENT: Denies: Head Aches, Sinus Congestion, Sinus Drainage Cardiovascular: Reports: Edema - Bilateral lower extremity, abdominal. Denies: Chest Pain, Palpitations Respiratory: Reports: Cough, Shortness of Breath. Denies: Sputum production, Wheezing Gastrointestinal: Reports: - - Abdominal distention, swelling. Denies: Abdominal Pain, Nausea, Vomiting Genitourinary: Denies: Dysuria Musculoskeletal: Denies: Joint Pain, Joint Tenderness Skin: Denies: Rash, Wounds Neurological: Denies: Numbness, Tingling, Focal weakness Psychiatric: Denies: Anxiety, Depression, Homicidal Ideations, Suicidal Ideations Hematologic/ Lymphatic: Denies: Easy Bruising, Easy Bleeding VTE Information - Inpt Only VTE Present on Admission: No VTE Mechan Device Prophylaxis: None VTE Pharm Prophylaxis ordered?: Yes - Physical Exam Vitals/I&O's: Vital Signs Temp Pulse Resp BP Pulse Ox 98.4 F 61 26 H 120/92 H 95 12/09/19 14:16 12/09/19 14:16 12/09/19 14:16 12/09/19 14:16 12/09/19 14:16 Oxygen Delivery Method Room Air Weight: 228 lb Body Mass Index (BMI) 39.1 General: Alert, Oriented x3, Cooperative HEENT: Atraumatic, PERRLA, EOMI, Normocephalic Neck: Supple, No JVD, Negative Carotid Bruits Lungs: Clear to auscultation Cardiovascular: Regular rate, - - V paced Abdomen: Bowel Sounds Present, Soft, Non Tender Extremities: No clubbing, No cyanosis, Capillary Refill Less than 3 Seconds, Edema - +3 bilateral lower extremity edema, ascites Skin: No rashes, No breakdown Musculoskeletal: No Tenderness to Palpation of Joints or Extremities Neurological: Cranial nerves II-XII grossly intact, Neuro grossly intact Psych/Mental Status: Normal Affect, Appropriate Laboratory Results 12/09/19 14:00: WBC 11.6 H, RBC 5.21, Hgb 13.3, Hct 44.1, MCV 84.6, MCH 25.5 L, MCHC 30.2 L, RDW Std Deviation 59.9 H, RDW Coeff of Marino 21.4 H, Plt Count 413, MPV 9.4, Immature Gran % (Auto) 0.700, Neut % (Auto) 74.2 H, Lymph % (Auto) 7.8 L, [place] % (Auto) 15.4 H, Eos % (Auto) 0.8, Baso % (Auto) 1.1 H, Absolute Neuts (auto) 8.6 H, Absolute Lymphs (auto) 0.90, Nucleated RBC % 0.6, Differential Comment SCANNED, Diff Path Review May foll, Anisocytosis 2+, Microcytosis 1+, Macrocytosis 1+ 12/09/19 14:00: Sodium 138, Potassium 3.6, Chloride 103, Carbon Dioxide 27.0, Anion Gap 8, BUN 17, Creatinine 1.31 H, Estim Creat Clear Calc 32.04, Est GFR (MDRD) Af Amer 51 L, Est GFR (MDRD) Non-Af 42 L, BUN/Creatinine Ratio 13.0, Glucose 91, Calcium 9.6, Total Bilirubin 1.60 H, AST 24, ALT 12 L, Alkaline Phosphatase 131 H, Troponin I < 0.015, Total Protein 7.6, Albumin 3.6, Globulin 4.0, Albumin/Globulin Ratio 0.9 12/09/19 14:00: B-Natriuretic Peptide 627.1 H Current Medications Furosemide 500 mg/ N/A 50 mls @ 1 mls/hr CONT INF .Q50H JAZMIN Last Admin: 12/09/19 14:39 Dose: 10 mg/hr, 1 mls/hr Documented by: Assessment/Plan All Active Problems (Last Reviewed 12/09/19 @ 13:[address] Jr Smith MD) Ascites (Acute) Dyspnea on exertion (Resolved) Elevated troponin (Resolved) Epistaxis (Resolved) Iron deficiency anemia (Resolved) 1. Acute on chronic combined systolic and diastolic heart failure-BNP 627. Chest x-ray consistent with CHF. Patient reports 28 pound weight gain. Lasix drip. Strict I&O. Daily weight. Echo May 2019 demonstrates an EF of 55%, pulmonary artery systolic pressure 40 mmHg. 2. Rheumatic heart disease status post mitral valve replacement and aortic valve replacement-stable per echo May 2019. 3. Status post pacemaker placement 4. Persistent atrial fibrillation-continue metoprolol. 5. Hypertension-stable, continue metoprolol. 6. Hyperlipidemia-continue statin. 7. Hypothyroidism-continue Synthroid regimen. 8. Chronic COPD-no exacerbation. As needed albuterol aerosol. 9. History of hemangiomas-eye, liver. No oral anticoagulation. 10. Chronic kidney disease stage III-at baseline, trend BMP. 11. Type 2 diabetes mellitus-not on regimen. Hemoglobin A1c July 2019 4.8%. 12. Iron deficiency anemia- follows with Dr. Francis. Routine IV iron infusions. 13. CELESTINO-continue home Pap regimen. 14. History of DVT-no longer on anticoagulation. 15. Obesity-encouraged diet and lifestyle modifications. DVT prophylaxis-heparin subcu This patient was seen by DONIS Torres under the supervision of Dr. Balderas.
[2019-12-09] MEDS: Budesonide Respules 0.5 MG/2 ML AMPUL.NEB. INHALATION (18:57)
[2019-12-10] VITALS (13 sets, daily range): BP systolic 93–140; BP diastolic 61–71; PULSE 60–77; RESP 16–18; TEMP 36.4–36.9; O2SAT 93–95
[2019-12-10] MEDS: Levothyroxine 50 MCG Tablet PO (05:44)
[2019-12-10] MEDS: Budesonide Respules 0.5 MG/2 ML AMPUL.NEB. INHALATION ×2 (07:00→18:43)
[2019-12-10 08:17] LABS: Anion Gap 9 (5-15); BUN 15 mg/dL (7-18); BUN/Creat Ratio 12.5 RATIO (10-20); Calcium,Total 9.4 mg/dL (8.5-10.1); Chloride 101 mmol/L (98-107); EST Glomerular Filtration Rate 47 mL/min (>60); Est Glom Filt Rate - Afr Amer 56 mL/min (>60); Estimated Creatinine Clearance 34.98 ml/min; Glucose 89 mg/dL (74-106); Potassium 3.5 mmol/L (3.5-5.1); Sodium Level 138 mmol/L (136-145)
[2019-12-10] MEDS: Pantoprazole Sodium 40 MG Tablet PO (08:26)
[2019-12-10] MEDS: Metolazone 2.5 MG Tablet PO (09:20)
[2019-12-10] MEDS: Loratadine 10 MG Tablet PO (09:20)
--- NOTE | 2019-12-10 09:29 | CPS ---
Pt declined Duoneb Aerosol, (she only uses Albuterol MDI as a rescue) but did want Pulmicort.
--- NOTE | 2019-12-10 12:25 | PN_ITS ---
<Letitia Anaya ENTERTAINER OR VARIETY ARTIST - Last Filed: 12/10/19 12:36> Subjective: Patient seen and examined. Reports improvement in breathing. Swelling mildly improved. -3 pounds since admission. Denies new complaints. - Physical Exam Vitals/I&O's: Vital Signs Temp Pulse Resp BP Pulse Ox 98 F 60 18 122/71 H 95 12/10/19 12:15 12/10/19 12:15 12/10/19 12:15 12/10/19 12:15 12/10/19 12:15 Oxygen Flow Rate (L/min) 1 Oxygen Delivery Method Room Air Weight: 225 lb 8.526 oz Body Mass Index (BMI) 38.7 Intake and Output for Last 24 Hours 12/08/19 12/09/19 12/10/19 23:59 23:59 23:59 Intake Total 499.27 / 499.27 1009.08 / 1009.08 Output Total 1100 / 1100 1000 / 1000 Balance -600.73 / -600.73 9.08 / 9.08 General: Alert, Oriented x3, Cooperative HEENT: Atraumatic, PERRLA, EOMI, Normocephalic Neck: Supple, No JVD, Negative Carotid Bruits Lungs: Clear to auscultation, Diminished Cardiovascular: Regular rate, No murmurs Abdomen: Bowel Sounds Present, Soft, Non Tender, Non-Distended Extremities: No clubbing, No cyanosis, Capillary Refill Less than 3 Seconds, - - Edema - +3 bilateral lower extremity edema, ascites Skin: No rashes, No breakdown Musculoskeletal: No Tenderness to Palpation of Joints or Extremities Neurological: Cranial nerves II-XII grossly intact, Neuro grossly intact Psych/Mental Status: Normal Affect, Appropriate Laboratory Results 12/09/19 14:00: WBC 11.6 H, RBC 5.21, Hgb 13.3, Hct 44.1, MCV 84.6, MCH 25.5 L, MCHC 30.2 L, RDW Std Deviation 59.9 H, RDW Coeff of Marino 21.4 H, Plt Count 413, MPV 9.4, Immature Gran % (Auto) 0.700, Neut % (Auto) 74.2 H, Lymph % (Auto) 7.8 L, Redwood % (Auto) 15.4 H, Eos % (Auto) 0.8, Baso % (Auto) 1.1 H, Absolute Neuts (auto) 8.6 H, Absolute Lymphs (auto) 0.90, Nucleated RBC % 0.6, Differential Comment SCANNED, Diff Path Review May foll, Anisocytosis 2+, Microcytosis 1+, Macrocytosis 1+ 12/09/19 14:00: Sodium 138, Potassium 3.6, Chloride 103, Carbon Dioxide 27.0, Anion Gap 8, BUN 17, Creatinine 1.31 H, Estim Creat Clear Calc 32.04, Est GFR (MDRD) Af Amer 51 L, Est GFR (MDRD) Non-Af 42 L, BUN/Creatinine Ratio 13.0, Glucose 91, Calcium 9.6, Total Bilirubin 1.60 H, AST 24, ALT 12 L, Alkaline Phosphatase 131 H, Troponin I < 0.015, Total Protein 7.6, Albumin 3.6, Globulin 4.0, Albumin/Globulin Ratio 0.9 12/09/19 14:00: B-Natriuretic Peptide 627.1 H 12/10/19 07:26: Sodium 138, Potassium 3.5, Chloride 101, Carbon Dioxide 28.0, Anion Gap 9, BUN 15, Creatinine 1.20 H, Estim Creat Clear Calc 34.98, Est GFR (MDRD) Af Amer 56 L, Est GFR (MDRD) Non-Af 47 L, BUN/Creatinine Ratio 12.5, Glucose 89, Calcium 9.4 Current Medications Acetaminophen (Tylenol) 650 mg PO Q6H PRN PRN PRN Reason: Pain Score 1-10/Temp > 100.7 F Albuterol/Ipratropium (Duoneb) 3 ml INHALATION Q6HWA.RT [facility] Last Admin: 12/10/19 06:57 Dose: Not Given Documented by: Budesonide (Pulmicort Aerosol) 0.5 mg INHALATION BID.RT JAZMIN Last Admin: 12/10/19 07:00 Dose: 0.5 mg Documented by: Furosemide 500 mg/ N/A 50 mls @ 1 mls/hr CONT INF .Q50H [facility] Last Infusion: 12/10/19 06:00 Dose: 10 mg/hr, 1 mls/hr Documented by: Levothyroxine Sodium (Synthroid) 50 mcg PO DAILY@0600 [facility] Last Admin: 12/10/19 05:44 Dose: 50 mcg Documented by: Loratadine (Claritin) 10 mg PO DAILY [facility] Last Admin: 12/10/19 09:20 Dose: 10 mg Documented by: Metolazone (Zaroxolyn) 2.5 mg PO DAILY [facility] Last Admin: 12/10/19 09:20 Dose: 2.5 mg Documented by: Metoprolol Succinate (Toprol Xl (Beta Delmer)) 50 mg PO DAILY [facility] Last Admin: 12/10/19 09:23 Dose: Not Given Documented by: Pantoprazole Sodium (Protonix) 40 mg PO DAILY [facility] Last Admin: 12/10/19 08:26 Dose: 40 mg Documented by: Potassium Chloride (K-Dur) 40 meq PO BIDCM [facility] Last Admin: 12/10/19 08:26 Dose: 40 meq Documented by: Medical Necessity - Tobacco Use Smoking Status: Former smoker Tobacco Use: Cigarettes Assessment/Plan All Active Problems (Last Reviewed 12/09/19 @ 13:[address] Jr Hale MD) Ascites (Acute) Dyspnea on exertion (Resolved) Elevated troponin (Resolved) Epistaxis (Resolved) Iron deficiency anemia (Resolved) 1. Acute on chronic combined systolic and diastolic heart failure-BNP 627. Chest x-ray consistent with CHF. Patient reports 28 pound weight gain. Lasix drip. Strict I&O. Daily weight. Echo May 2019 demonstrates an EF of 55%, pulmonary artery systolic pressure 40 mmHg. 2. Rheumatic heart disease status post mitral valve replacement and aortic valve replacement-stable per echo May 2019. 3. Status post pacemaker placement 4. Persistent atrial fibrillation-continue metoprolol. 5. Hypertension-stable, continue metoprolol. 6. Hyperlipidemia-continue statin. 7. Hypothyroidism-continue Synthroid regimen. 8. Chronic COPD-no exacerbation. As needed albuterol aerosol. 9. History of hemangiomas-eye, liver. No oral anticoagulation. 10. Chronic kidney disease stage III-at baseline, trend BMP. 11. Type 2 diabetes mellitus-not on regimen. Hemoglobin A1c July 2019 4.8%. 12. Iron deficiency anemia- follows with Dr. Francis. Routine IV iron infusions. 13. CELESTINO-continue home Pap regimen. 14. History of DVT-no longer on anticoagulation. 15. Obesity-encouraged diet and lifestyle modifications. DVT prophylaxis-heparin subcu This patient was seen by DONIS Torres under the supervision of Dr. Banuelos. <William Banuelos - Last Filed: 12/10/19 13:56> Subjective: Patient seen and examined. Patient shortness of breath improved. Has increasing urine output on IV Lasix drip. Patient has bilateral lower extremity edema and abdominal distention probably from ascites. Objective: Physical exam General: Alert, Oriented x3, Cooperative, weight gain and morbid obesity HEENT: Atraumatic, PERRLA, EOMI, Normocephalic Oral: No Gingival or Mucosal Lesions/ Ulcerations Neck: Supple, No JVD, Negative Carotid Bruits Lungs: Air entry equal in bilateral lungs. No crepitation/rhonchi Cardiovascular: Regular rate, Regular Rhythm, Normal S1, Normal S2, No murmurs Abdomen: Shifting dullness present. Moderate ascites. Bowel Sounds Present, Soft, Non Tender, Non-Distended : No renal angle tenderness. No suprapubic tenderness. Extremities: Bilateral lower extremity edema up to thigh, Capillary Refill Less than 3 Seconds Skin: No rashes, No breakdown Musculoskeletal: No Tenderness to Palpation of Joints or Extremities Neurological: Cranial nerves II-XII grossly intact, Deep Tendon Reflexes 2+/4 and Symmetrical, Neuro grossly intact Psych/Mental Status: Normal Affect, Appropriate. - Physical Exam Vitals/I&O's: Vital Signs Temp Pulse Resp BP Pulse Ox 98 F 60 18 122/71 H 95 12/10/19 12:15 12/10/19 12:15 12/10/19 12:15 12/10/19 12:15 12/10/19 12:15 Oxygen Flow Rate (L/min) 1 Oxygen Delivery Method Room Air Weight: 225 lb 8.526 oz Body Mass Index (BMI) 38.7 Intake and Output for Last 24 Hours 12/08/19 12/09/19 12/10/19 23:59 23:59 23:59 Intake Total 499.27 / 499.27 1009.08 / 1009.08 Output Total 1100 / 1100 1000 / 1000 Balance -600.73 / -600.73 9.08 / 9.08 Laboratory Results 12/09/19 14:00: WBC 11.6 H, RBC 5.21, Hgb 13.3, Hct 44.1, MCV 84.6, MCH 25.5 L, MCHC 30.2 L, RDW Std Deviation 59.9 H, RDW Coeff of Marino 21.4 H, Plt Count 413, MPV 9.4, Immature Gran % (Auto) 0.700, Neut % (Auto) 74.2 H, Lymph % (Auto) 7.8 L, Redwood % (Auto) 15.4 H, Eos % (Auto) 0.8, Baso % (Auto) 1.1 H, Absolute Neuts (auto) 8.6 H, Absolute Lymphs (auto) 0.90, Nucleated RBC % 0.6, Differential Comment SCANNED, Diff Path Review May foll, Anisocytosis 2+, Microcytosis 1+, Macrocytosis 1+ 12/09/19 14:00: Sodium 138, Potassium 3.6, Chloride 103, Carbon Dioxide 27.0, Anion Gap 8, BUN 17, Creatinine 1.31 H, Estim Creat Clear Calc 32.04, Est GFR (MDRD) Af Amer 51 L, Est GFR (MDRD) Non-Af 42 L, BUN/Creatinine Ratio 13.0, Glucose 91, Calcium 9.6, Total Bilirubin 1.60 H, AST 24, ALT 12 L, Alkaline Phosphatase 131 H, Troponin I < 0.015, Total Protein 7.6, Albumin 3.6, Globulin 4.0, Albumin/Globulin Ratio 0.9 12/09/19 14:00: B-Natriuretic Peptide 627.1 H 12/10/19 07:26: Sodium 138, Potassium 3.5, Chloride 101, Carbon Dioxide 28.0, Anion Gap 9, BUN 15, Creatinine 1.20 H, Estim Creat Clear Calc 34.98, Est GFR (MDRD) Af Amer 56 L, Est GFR (MDRD) Non-Af 47 L, BUN/Creatinine Ratio 12.5, Glucose 89, Calcium 9.4 Current Medications Acetaminophen (Tylenol) 650 mg PO Q6H PRN PRN PRN Reason: Pain Score 1-10/Temp > 100.7 F Albuterol/Ipratropium (Duoneb) 3 ml INHALATION Q6HWA.RT [facility] Last Admin: 12/10/19 06:57 Dose: Not Given Documented by: Budesonide (Pulmicort Aerosol) 0.5 mg INHALATION BID.RT [facility] Last Admin: 12/10/19 07:00 Dose: 0.5 mg Documented by: Furosemide 500 mg/ N/A 50 mls @ 1 mls/hr CONT INF .Q50H [facility] Last Infusion: 12/10/19 06:00 Dose: 10 mg/hr, 1 mls/hr Documented by: Levothyroxine Sodium (Synthroid) 50 mcg PO DAILY@0600 [facility] Last Admin: 12/10/19 05:44 Dose: 50 mcg Documented by: Loratadine (Claritin) 10 mg PO DAILY [facility] Last Admin: 12/10/19 09:20 Dose: 10 mg Documented by: Metolazone (Zaroxolyn) 2.5 mg PO DAILY [facility] Last Admin: 12/10/19 09:20 Dose: 2.5 mg Documented by: Metoprolol Succinate (Toprol Xl (Beta Delmer)) 50 mg PO DAILY [facility] Last Admin: 12/10/19 09:23 Dose: Not Given Documented by: Pantoprazole Sodium (Protonix) 40 mg PO DAILY [facility] Last Admin: 12/10/19 08:26 Dose: 40 mg Documented by: Potassium Chloride (K-Dur) 40 meq PO BIDCM [facility] Last Admin: 12/10/19 08:26 Dose: 40 meq Documented by: Assessment/Plan This patient was seen in conjunction with ENTERTAINER OR VARIETY ARTISTLetitia. I have independently interviewed and examined the patient and reviewed pertinent history, examination findings, laboratory and plan of management. I have reviewed the note and agree with the documented findings with the few additional points. In brief, patient is 74-year-old female with history of chronic systolic and diastolic combined heart failure secondary to valvular heart disease was admitted with anasarca, bilateral lower extremity edema, ascites, weight gain consistent with acute on chronic combined heart failure. Patient had 28 pounds weight gain and was sent to ER from cardiology clinic by Dr hale. Started on Lasix drip. Last echo May 2019 shows EF 55% with RVSP 40 mmHg. Patient had mitral valve replacement and aortic valve displacement. Patient also has persistent A. fib on metoprolol. Multiple comorbidities as listed above including COPD, CKD stage III and hemangioma and diabetes mellitus type 2. Patient does not have diagnosed or known liver disease but probably she might have nonalcoholic fatty liver disease. Total bilirubin 1.6, open phosphatase 131. Total time of the visit including total time spent in counseling or coordination of care, (more than 50% of the total time, spent in obtaining medical information from nurses and other ancillary care providers), , review of labs and imaging is 30 minutes. I have discussed my assessment with ENTERTAINER OR VARIETY ARTISTLetitia and orders have been reviewed. Inpatient E&M: 95154 Subs Hosp L3
--- NOTE | 2019-12-10 12:45 | CASEMGMT ---
AIDA BEVERLY assessment: Face to Face with patient for initial transition planning/care coordination assessment. AIDA BEVERLY introduced self and role at [facility], pt voices understanding and consents to assessment at this time. Pt is lying in bed in no distress at this time. Pt is A/Ox4 at this time and answers all questions appropriately at this time. Care providers, pharmacy, and demographics verified at this time. Presentation: Sent by Dr. Smith for LE/Abd edema Admitting dx: CHF PCP: Maximus but states is meeting with Mp soon to see if she would like to switch to her Specialists: Gianfranco, heme; Luis, cardio; 2 [facility] cardiologists; jhonatan Alexandra Preferred Pharmacy: [facility] Insurance: [employer] A/B, [employer] Prescription Benefit: [employer] Living Will/HPOA: Pt states has LW/HPOA but they are not currently on file at [facility] at this time. Pt states her daughter, Megan Curtis, is HPOA. LNOK: Megan Curtis, daughter/HPOA; Luther Flores, son Living Arrangements: Pt states lives alone in 1 story home and states no concerns at home at this time. Pt states is independent with ADL's. Transportation: Pt states drives self and states no transportation concerns at this time. DME/HHC: Pt states has the following DME: cane, walker, w/c, grab bars, shower chair, home oxygen 1 liter, and cpap thru [employer]. Pt states no need for any further DME at this time. Pt states no hx of HHC or SNF in the past. Pt states no concerns with going home at time of discharge. Pt is retired. Pt states does not smoke cigarettes or drink ETOH. Pt states no further concerns/needs at this time. CM to follow for any further discharge planning/needs. Advised pt to ask for CM if any further questions/concerns/needs arise, voices understanding. Pt Goal: Home Plan[place] AIDA BEVERLY
[2019-12-10] MEDS: Furosemide 500 MG in Empty Viaflex 50 mL 1 EACH CONT INF (13:58)
[2019-12-11] VITALS (11 sets, daily range): BP systolic 93–138; BP diastolic 47–73; PULSE 60–75; RESP 15–18; TEMP 36.6–36.9; O2SAT 93–95
[2019-12-11] MEDS: Levothyroxine 50 MCG Tablet PO (04:30)
[2019-12-11 06:33] LABS: Hematocrit 42.2 % (37-47); Hemoglobin 12.8 g/dL (12.0-15.0); Mean Corp Hgb Conc 30.3 g/dL (32-36); Mean Corpuscular Hgb 25.2 pg (27.0-32.0); Mean Corpuscular Volume 83.1 fL (81-99); Mean Platelet Vol. 9.7 fl (6.2-12.0); POSITIVE MORPHOLOGY YES; Platelet Count 364 K/mm3 (150-450); RBC Distribution Width CV 21.8 % (11.6-14.6); RBC Distribution Width SD 59.2 fl (35.1-43.9); Red Blood Count 5.08 M/mm3 (4.2-5.4); Scan Indicated on CBC? Y/N YES- FLAGS NOTED
[2019-12-11 07:13] LABS: Differential Comment SCANNED
[2019-12-11 07:38] LABS: Anion Gap 7 (5-15); BUN 14 mg/dL (7-18); BUN/Creat Ratio 11.9 RATIO (10-20); Calcium,Total 9.9 mg/dL (8.5-10.1); Chloride 96 mmol/L (98-107); Creatinine, Serum 1.18 mg/dL (0.55-1.02); EST Glomerular Filtration Rate 47 mL/min (>60); Est Glom Filt Rate - Afr Amer 57 mL/min (>60); Estimated Creatinine Clearance 35.57 ml/min; Glucose 99 mg/dL (74-106); Potassium 2.7 mmol/L (3.5-5.1); Sodium Level 137 mmol/L (136-145)
[2019-12-11 08:17] LABS: Phosphorus 4.3 mg/dL (2.5-4.9)
[2019-12-11] MEDS: Potassium Chloride 10mEq/100mL 10 MEQ/100 ML IV.SOLN. 100 MEQ IV BOLUS (08:51)
[2019-12-11] MEDS: Loratadine 10 MG Tablet PO (08:53)
[2019-12-11] MEDS: Metolazone 2.5 MG Tablet PO (08:53)
[2019-12-11] MEDS: Pantoprazole Sodium 40 MG Tablet PO (08:53)
--- NOTE | 2019-12-11 09:44 | PCM.PROGNOTE ---
<Letitia Anaya THREAD REELER - Last Filed: 12/11/19 09:54> Subjective: Patient seen and examined. Continues to have shortness of breath with exertion. Lower extremity and abdominal swelling improved. Complains of harsh nonproductive cough. Denies fever, chills. - Physical Exam Vitals/I&O's: Vital Signs Temp Pulse Resp BP Pulse Ox 97.8 F 74 18 109/73 93 12/11/19 04:10 12/11/19 07:19 12/11/19 04:10 12/11/19 04:10 12/11/19 07:04 Oxygen Flow Rate (L/min) 1 Oxygen Delivery Method Room Air Weight: 213 lb 13.574 oz Body Mass Index (BMI) 38.7 Intake and Output for Last 24 Hours 12/09/19 12/10/19 12/11/19 23:59 23:59 23:59 Intake Total 499.27 / 499.27 1307.05 / 1307.05 428.66 / 428.66 Output Total 1100 / 1100 4300 / 4300 900 / 900 Balance -600.73 / -600.73 -2992.95 / -2992.95 -471.34 / -471.34 General: Alert, Oriented x3, Cooperative HEENT: Atraumatic, PERRLA, EOMI, Normocephalic Oral: Dry Mucosa Neck: Supple, No JVD, Negative Carotid Bruits Lungs: Clear to auscultation, Diminished Cardiovascular: Regular rate, No murmurs Abdomen: Bowel Sounds Present, Soft, Non Tender, Non-Distended, Obese, - - Ascites Extremities: No clubbing, No cyanosis, Edema - Bilateral lower extremities, Sanjay wraps in place-edema improving. Skin: No rashes, No breakdown Musculoskeletal: No Tenderness to Palpation of Joints or Extremities Neurological: Cranial nerves II-XII grossly intact, Neuro grossly intact Psych/Mental Status: Normal Affect, Appropriate Laboratory Results 12/11/19 05:50: WBC 9.0, RBC 5.08, Hgb 12.8, Hct 42.2, MCV 83.1, MCH 25.2 L, MCHC 30.3 L, RDW Std Deviation 59.2 H, RDW Coeff of Marino 21.8 H, Plt Count 364, MPV 9.7, Differential Comment SCANNED 12/11/19 05:50: Sodium 137, Potassium 2.7 L*, Chloride 96 L, Carbon Dioxide 34.0 H, Anion Gap 7, BUN 14, Creatinine 1.18 H, Estim Creat Clear Calc 35.57, Est GFR (MDRD) Af Amer 57 L, Est GFR (MDRD) Non-Af 47 L, BUN/Creatinine Ratio 11.9, Glucose 99, Calcium 9.9 12/11/19 05:50: Phosphorus 4.3, Magnesium 2.0 Current Medications Acetaminophen (Tylenol) 650 mg PO Q6H PRN PRN PRN Reason: Pain Score 1-10/Temp > 100.7 F Albuterol/Ipratropium (Duoneb) 3 ml INHALATION Q6HWA.RT [facility] Last Admin: 12/11/19 07:04 Dose: Not Given Documented by: Budesonide (Pulmicort Aerosol) 0.5 mg INHALATION BID.RT [facility] Last Admin: 12/11/19 07:05 Dose: Not Given Documented by: Furosemide 500 mg/ N/A 50 mls @ 1 mls/hr CONT INF .Q50H [facility] Last Admin: 12/10/19 13:58 Dose: 10 mg/hr, 1 mls/hr Documented by: Potassium Chloride () 10 meq in 100 mls @ 100 mls/hr IV BOLUS Q1H [facility] Stop: 12/11/19 11:59 Last Infusion: 12/11/19 08:57 Dose: 60 mls/hr Documented by: Sodium Chloride () 250 mls @ 15 mls/hr IV .[id number] PRN PRN Reason: Saline Flush Last Admin: 12/11/19 08:59 Dose: 25 mls/hr Documented by: Sodium Chloride () 250 mls @ 15 mls/hr IV .[id number] PRN PRN Reason: Additional IVPB Infusion Levothyroxine Sodium (Synthroid) 50 mcg PO DAILY@0600 [facility] Last Admin: 12/11/19 04:30 Dose: 50 mcg Documented by: Loratadine (Claritin) 10 mg PO DAILY [facility] Last Admin: 12/11/19 08:53 Dose: 10 mg Documented by: Metolazone (Zaroxolyn) 2.5 mg PO DAILY [facility] Last Admin: 12/11/19 08:53 Dose: 2.5 mg Documented by: Metoprolol Succinate (Toprol Xl (Beta Delmer)) 50 mg PO DAILY [facility] Last Admin: 12/10/19 09:23 Dose: Not Given Documented by: Pantoprazole Sodium (Protonix) 40 mg PO DAILY [facility] Last Admin: 12/11/19 08:53 Dose: 40 mg Documented by: Medical Necessity - Tobacco Use Smoking Status: Former smoker Tobacco Use: Cigarettes Assessment/Plan All Active Problems (Last Reviewed 12/09/19 @ 13:[address] Jr Hale MD) Ascites (Acute) Dyspnea on exertion (Resolved) Elevated troponin (Resolved) Epistaxis (Resolved) Iron deficiency anemia (Resolved) 1. Acute on chronic combined systolic and diastolic heart failure-BNP 627. Chest x-ray consistent with CHF. Patient reports 28 pound weight gain. Lasix drip. Strict I&O. Daily weight. Echo May 2019 demonstrates an EF of 55%, pulmonary artery systolic pressure 40 mmHg. -15 lbs per daily weights. Continue current treatment. 2. Rheumatic heart disease status post mitral valve replacement and aortic valve replacement-stable per echo May 2019. 3. Status post pacemaker placement 4. Persistent atrial fibrillation-continue metoprolol. 5. Hypertension-stable, continue metoprolol. 6. Hyperlipidemia-continue statin. 7. Hypothyroidism-continue Synthroid regimen. 8. Chronic COPD-no exacerbation. As needed albuterol aerosol. 9. History of hemangiomas-eye, liver. No oral anticoagulation. 10. Chronic kidney disease stage III-at baseline, trend BMP. 11. Type 2 diabetes mellitus-not on regimen. Hemoglobin A1c July 2019 4.8%. 12. Iron deficiency anemia- follows with Dr. Francis. Routine IV iron infusions. 13. CELESTINO-continue home Pap regimen. 14. History of DVT-no longer on anticoagulation. 15. Obesity-encouraged diet and lifestyle modifications. 16. Hypokalemia-replace per protocol. Trend BMP. DVT prophylaxis-heparin subcu This patient was seen by DONIS Torres under the supervision of Dr. Banuelos. <William Banuelos - Last Filed: 12/11/19 11:22> Objective: Swelling in the lower extremity has much improved. Thigh edema has much decreased. Patient also feels less abdominal distention. Sitting in the chair. No chest pain. Physical exam General: Alert, Oriented x3, Cooperative, weight gain and morbid obesity HEENT: Atraumatic, PERRLA, EOMI, Normocephalic Oral: No Gingival or Mucosal Lesions/ Ulcerations Neck: Supple, No JVD, Negative Carotid Bruits Lungs: Air entry equal in bilateral lungs. No crepitation/rhonchi. No tachypnea. Cardiovascular: Regular rate, Regular Rhythm, Normal S1, Normal S2, No murmurs Abdomen: Shifting dullness present. Moderate ascites. Bowel Sounds Present, Soft, Non Tender, Non-Distended : No renal angle tenderness. No suprapubic tenderness. Extremities: Bilateral lower extremity knee level, Capillary Refill Less than 3 Seconds Skin: No rashes, No breakdown Musculoskeletal: No Tenderness to Palpation of Joints or Extremities Neurological: Cranial nerves II-XII grossly intact, Deep Tendon Reflexes 2+/4 and Symmetrical, Neuro grossly intact Psych/Mental Status: Normal Affect, Appropriate. - Physical Exam Vitals/I&O's: Vital Signs Temp Pulse Resp BP Pulse Ox 98.4 F 73 15 93/47 L 94 12/11/19 09:55 12/11/19 09:55 12/11/19 09:55 12/11/19 09:55 12/11/19 09:55 Oxygen Flow Rate (L/min) 1 Oxygen Delivery Method Room Air Weight: 213 lb 13.574 oz Body Mass Index (BMI) 38.7 Intake and Output for Last 24 Hours 12/09/19 12/10/19 12/11/19 23:59 23:59 23:59 Intake Total 499.27 / 499.27 1307.05 / 1307.05 516.66 / 516.66 Output Total 1100 / 1100 4300 / 4300 900 / 900 Balance -600.73 / -600.73 -2992.95 / -2992.95 -383.34 / -383.34 Laboratory Results 12/11/19 05:50: WBC 9.0, RBC 5.08, Hgb 12.8, Hct 42.2, MCV 83.1, MCH 25.2 L, MCHC 30.3 L, RDW Std Deviation 59.2 H, RDW Coeff of Marino 21.8 H, Plt Count 364, MPV 9.7, Differential Comment SCANNED 12/11/19 05:50: Sodium 137, Potassium 2.7 L*, Chloride 96 L, Carbon Dioxide 34.0 H, Anion Gap 7, BUN 14, Creatinine 1.18 H, Estim Creat Clear Calc 35.57, Est GFR (MDRD) Af Amer 57 L, Est GFR (MDRD) Non-Af 47 L, BUN/Creatinine Ratio 11.9, Glucose 99, Calcium 9.9 12/11/19 05:50: Phosphorus 4.3, Magnesium 2.0 Current Medications Acetaminophen (Tylenol) 650 mg PO Q6H PRN PRN PRN Reason: Pain Score 1-10/Temp > 100.7 F Albuterol/Ipratropium (Duoneb) 3 ml INHALATION Q4H.RT PRN PRN Reason: SOB &/OR WHEEZING Budesonide (Pulmicort Aerosol) 0.5 mg INHALATION BID.RT [facility] Last Admin: 12/11/19 07:05 Dose: Not Given Documented by: Guaifenesin (Mucinex) 1,200 mg PO BID [facility] Last Admin: 12/11/19 11:05 Dose: 1,200 mg Documented by: Furosemide 500 mg/ N/A 50 mls @ 1 mls/hr CONT INF .Q50H [facility] Last Admin: 12/10/19 13:58 Dose: 10 mg/hr, 1 mls/hr Documented by: Potassium Chloride () 10 meq in 100 mls @ 100 mls/hr IV BOLUS Q1H [facility] Stop: 12/11/19 11:59 Last Admin: 12/11/19 10:25 Dose: 60 mls/hr Documented by: Sodium Chloride () 250 mls @ 15 mls/hr IV .[id number] PRN PRN Reason: Saline Flush Last Admin: 12/11/19 08:59 Dose: 25 mls/hr Documented by: Sodium Chloride () 250 mls @ 15 mls/hr IV .[id number] PRN PRN Reason: Additional IVPB Infusion Levothyroxine Sodium (Synthroid) 50 mcg PO DAILY@0600 [facility] Last Admin: 12/11/19 04:30 Dose: 50 mcg Documented by: Loratadine (Claritin) 10 mg PO DAILY [facility] Last Admin: 12/11/19 08:53 Dose: 10 mg Documented by: Metolazone (Zaroxolyn) 2.5 mg PO DAILY [facility] Last Admin: 12/11/19 08:53 Dose: 2.5 mg Documented by: Metoprolol Succinate (Toprol Xl (Beta Delmer)) 50 mg PO DAILY [facility] Last Admin: 12/11/19 10:07 Dose: Not Given Documented by: Pantoprazole Sodium (Protonix) 40 mg PO DAILY [facility] Last Admin: 12/11/19 08:53 Dose: 40 mg Documented by: Potassium Chloride (K-Dur) 40 meq PO BIDCM [facility] Assessment/Plan This patient was seen in conjunction with THREAD REELERLetitia. I have independently interviewed and examined the patient and reviewed pertinent history, examination findings, laboratory and plan of management. I have reviewed the note and agree with the documented findings with the few additional points. In brief, patient is 74-year-old female with history of chronic systolic and diastolic combined heart failure secondary to valvular heart disease was admitted with anasarca, bilateral lower extremity edema, ascites, weight gain consistent with acute on chronic combined heart failure. Patient had 28 pounds weight gain and was sent to ER from cardiology clinic by Dr hale. Started on Lasix drip. Last echo May 2019 shows EF 55% with RVSP 40 mmHg. Patient had mitral valve replacement and aortic valve displacement. Patient also has persistent A. fib on metoprolol. 12/10: Negative for later fluid balance. Multiple comorbidities as listed above including COPD, CKD stage III and hemangioma and diabetes mellitus type 2. Patient does not have diagnosed or known liver disease but probably she might have nonalcoholic fatty liver disease. Total bilirubin 1.6, open phosphatase 131. Fluid weight decreased from 228-213. Continue Lasix drip at 10 mg/ per hour. Heart rate and blood pressure is controlled. Hypokalemia, potassium replacement ordered. Magnesium 2.0, phosphorus 4.3. Creatinine has decreased from 1.3-1.18. Monitor electrolytes and kidney function. Total time of the visit including total time spent in counseling or coordination of care, (more than 50% of the total time, spent in obtaining medical information from nurses and other ancillary care providers), , review of labs and imaging is 30 minutes. I have discussed my assessment with Letitia TANG and orders have been reviewed. Inpatient E&M: [id number] Subs Hosp L2
--- NOTE | 2019-12-11 10:18 | OT ---
EDU PT ON BUE AROM EXERCISES TO PERFORM IN ROOM TO MAINTAIN BUE STRENGTH WHILE IN HOSPITAL. EDU ON BEING CAUTIOUS OF IV LINE DURING EXERCISES. PT VERB UNDERSTANDING. EDU PT ON ENERGY CONSERVATION/WORK SIMPLIFICATION STRATEGIES TO INC SAFETY AND INDEP AT HOME. DISCUSSED BENEFITS AND OPTIONS FOR SHOWER CHAIRS/BENCH. PROVIDED ENERGY CONSERVATION HANDOUT. PT VERBALIZED UNDERSTANDING
[2019-12-11] MEDS: Potassium Chloride 10mEq/100mL 10 MEQ/100 ML IV.SOLN. 60 MEQ IV BOLUS ×3 (10:25→13:46)
[2019-12-11] MEDS: guaiFENesin 1,200 MG Tablet 1200 MG PO (11:05)
[2019-12-11 16:13] LABS: Anion Gap 8 (5-15); BUN 18 mg/dL (7-18); Calcium,Total 10.4 mg/dL (8.5-10.1); Chloride 98 mmol/L (98-107); Creatinine, Serum 1.38 mg/dL (0.55-1.02); EST Glomerular Filtration Rate 40 mL/min (>60); Est Glom Filt Rate - Afr Amer 48 mL/min (>60); Estimated Creatinine Clearance 30.42 ml/min; Glucose 137 mg/dL (74-106); Potassium 2.9 mmol/L (3.5-5.1); Sodium Level 137 mmol/L (136-145)
[2019-12-11] MEDS: Budesonide Respules 0.5 MG/2 ML AMPUL.NEB. INHALATION (18:41)
[2019-12-12] VITALS (13 sets, daily range): BP systolic 120–133; BP diastolic 69–79; PULSE 60–84; RESP 14–20; TEMP 36.4–36.8; O2SAT 90–96
[2019-12-12] MEDS: Levothyroxine 50 MCG Tablet PO (04:16)
[2019-12-12 07:06] LABS: Anion Gap 12 (5-15); BUN 21 mg/dL (7-18); BUN/Creat Ratio 18.8 RATIO (10-20); Calcium,Total 10.6 mg/dL (8.5-10.1); Chloride 91 mmol/L (98-107); Creatinine, Serum 1.12 mg/dL (0.55-1.02); EST Glomerular Filtration Rate 50 mL/min (>60); Est Glom Filt Rate - Afr Amer 61 mL/min (>60); Estimated Creatinine Clearance 37.48 ml/min; Glucose 138 mg/dL (74-106); Sodium Level 138 mmol/L (136-145)
[2019-12-12] MEDS: Budesonide Respules 0.5 MG/2 ML AMPUL.NEB. INHALATION ×2 (07:40→19:05)
[2019-12-12] MEDS: Loratadine 10 MG Tablet PO (10:30)
[2019-12-12] MEDS: Pantoprazole Sodium 40 MG Tablet PO (10:30)
[2019-12-12] MEDS: guaiFENesin 1,200 MG Tablet 1200 MG PO (10:30)
[2019-12-12] MEDS: Metoprolol(XL)Succ 50 MG Tablet PO (10:31)
[2019-12-12] MEDS: Metolazone 2.5 MG Tablet PO (10:31)
[2019-12-12] MEDS: Potassium Chloride 10mEq/100mL 10 MEQ/100 ML IV.SOLN. 100 MEQ IV BOLUS ×6 (10:32→20:28)
--- NOTE | 2019-12-12 12:13 | PN_ITS ---
<HéctorLetitia PLASTIC PARTS FABRICATOR - Last Filed: 12/12/19 12:29> Subjective: Patient seen and examined. Reports continued improvement in shortness of breath and swelling. Down 21 pounds per daily weights. Patient states she is scheduled for iron infusion tomorrow and asking if she can have this done while she was in the hospital. - Physical Exam Vitals/I&O's: Vital Signs Temp Pulse Resp BP Pulse Ox 98.3 F 78 14 120/75 95 12/12/19 09:01 12/12/19 10:31 12/12/19 09:01 12/12/19 10:31 12/12/19 10:15 Oxygen Flow Rate (L/min) 1 Oxygen Delivery Method Room Air Weight: 207 lb 10.807 oz Body Mass Index (BMI) 38.7 Intake and Output for Last 24 Hours 12/10/19 12/11/19 12/12/19 23:59 23:59 23:59 Intake Total 1307.05 / 1307.05 1702.41 / 2122.41 1274.32 / 1274.32 Output Total 4300 / 4300 3500 / 4500 2800 / 2800 Balance -2992.95 / -2992.95 -1797.59 / -2377.59 -1525.68 / -1525.68 General: Alert, Oriented x3, Cooperative HEENT: Atraumatic, PERRLA, EOMI, Normocephalic Oral: Dry Mucosa Neck: Supple, No JVD, Negative Carotid Bruits Lungs: Clear to auscultation, Diminished Cardiovascular: Regular rate, No murmurs Abdomen: Bowel Sounds Present, Soft, Non Tender, Non-Distended, Obese, - - Ascites Extremities: No clubbing, No cyanosis, Edema - Bilateral lower extremities Skin: No rashes, No breakdown Musculoskeletal: No Tenderness to Palpation of Joints or Extremities Neurological: Cranial nerves II-XII grossly intact, Neuro grossly intact Psych/Mental Status: Normal Affect, Appropriate Laboratory Results 12/11/19 15:51: Sodium 137, Potassium 2.9 L, Chloride 98, Carbon Dioxide 31.0, Anion Gap 8, BUN 18, Creatinine 1.38 H, Estim Creat Clear Calc 30.42, Est GFR (MDRD) Af Amer 48 L, Est GFR (MDRD) Non-Af 40 L, BUN/Creatinine Ratio 13.0, Glucose 137 H, Calcium 10.4 H 12/12/19 05:40: Sodium 138, Potassium 2.0 L*, Chloride 91 L, Carbon Dioxide 35.0 H, Anion Gap 12, BUN 21 H, Creatinine 1.12 H, Estim Creat Clear Calc 37.48, Est GFR (MDRD) Af Amer 61, Est GFR (MDRD) Non-Af 50 L, BUN/Creatinine Ratio 18.8, Glucose 138 H, Calcium 10.6 H Current Medications Acetaminophen (Tylenol) 650 mg PO Q6H PRN PRN PRN Reason: Pain Score 1-10/Temp > 100.7 F Albuterol/Ipratropium (Duoneb) 3 ml INHALATION Q4H.RT PRN PRN Reason: SOB &/OR WHEEZING Budesonide (Pulmicort Aerosol) 0.5 mg INHALATION BID.RT [facility] Last Admin: 12/12/19 07:40 Dose: 0.5 mg Documented by: Furosemide (Lasix) 40 mg IV BID@1000,1800 [facility] Guaifenesin (Mucinex) 1,200 mg PO BID [facility] Last Admin: 12/12/19 10:30 Dose: 1,200 mg Documented by: Sodium Chloride () 250 mls @ 15 mls/hr IV .[id number] PRN PRN Reason: Saline Flush Last Infusion: 12/11/19 15:20 Dose: 0 mls/hr Documented by: Sodium Chloride () 250 mls @ 15 mls/hr IV .[id number] PRN PRN Reason: Additional IVPB Infusion Potassium Chloride () 10 meq in 100 mls @ 100 mls/hr IV BOLUS Q1H [facility] Stop: 12/12/19 13:14 Last Admin: 12/12/19 12:00 Dose: 100 mls/hr Documented by: Levothyroxine Sodium (Synthroid) 50 mcg PO DAILY@0600 [facility] Last Admin: 12/12/19 04:16 Dose: 50 mcg Documented by: Loratadine (Claritin) 10 mg PO DAILY [facility] Last Admin: 12/12/19 10:30 Dose: 10 mg Documented by: Metolazone (Zaroxolyn) 2.5 mg PO DAILY [facility] Last Admin: 12/12/19 10:31 Dose: 2.5 mg Documented by: Metoprolol Succinate (Toprol Xl (Beta Delmer)) 50 mg PO DAILY [facility] Last Admin: 12/12/19 10:31 Dose: 50 mg Documented by: Pantoprazole Sodium (Protonix) 40 mg PO DAILY [facility] Last Admin: 12/12/19 10:30 Dose: 40 mg Documented by: Medical Necessity - Tobacco Use Smoking Status: Former smoker Tobacco Use: Cigarettes Assessment/Plan All Active Problems (Last Reviewed 12/09/19 @ 13:[address] Jr Smith MD) Ascites (Acute) Dyspnea on exertion (Resolved) Elevated troponin (Resolved) Epistaxis (Resolved) Iron deficiency anemia (Resolved) 1. Acute on chronic combined systolic and diastolic heart failure-BNP 627. Chest x-ray consistent with CHF. Patient reports 28 pound weight gain. Strict I&O. Daily weight. Echo May 2019 demonstrates an EF of 55%, pulmonary artery systolic pressure 40 mmHg. -21 lbs per daily weights. Discontinue Lasix drip due to significant hypokalemia and increasing bicarb. IV Lasix 40 mg twice daily. 2. Rheumatic heart disease status post mitral valve replacement and aortic valve replacement-stable per echo May 2019. 3. Status post pacemaker placement 4. Persistent atrial fibrillation-continue metoprolol. 5. Hypertension-stable, continue metoprolol. 6. Hyperlipidemia-continue statin. 7. Hypothyroidism-continue Synthroid regimen. 8. Chronic COPD-no exacerbation. As needed albuterol aerosol. 9. History of hemangiomas-eye, liver. No oral anticoagulation. 10. Chronic kidney disease stage III-at baseline, trend BMP. 11. Type 2 diabetes mellitus-not on regimen. Hemoglobin A1c July 2019 4.8%. 12. Iron deficiency anemia- follows with Dr. Francis. Routine IV iron infusions. 13. CELESTINO-continue home Pap regimen. 14. History of DVT-no longer on anticoagulation. 15. Obesity-encouraged diet and lifestyle modifications. 16. Hypokalemia-replace per protocol. Trend BMP. DVT prophylaxis-heparin subcu This patient was seen by DONIS Torres under the supervision of Dr. Duran. <Yvan Duran F - Last Filed: 12/12/19 15:45> - Physical Exam Vitals/I&O's: Vital Signs Temp Pulse Resp BP Pulse Ox 98.2 F 63 14 133/70 H 93 12/12/19 12:10 12/12/19 12:10 12/12/19 12:10 12/12/19 12:10 12/12/19 12:10 Oxygen Flow Rate (L/min) 1 Oxygen Delivery Method Room Air Weight: 207 lb 10.807 oz Body Mass Index (BMI) 38.7 Intake and Output for Last 24 Hours 12/10/19 12/11/19 12/12/19 23:59 23:59 23:59 Intake Total 1307.05 / 1307.05 1702.41 / 2122.41 1374.32 / 1374.32 Output Total 4300 / 4300 3500 / 4500 2800 / 2800 Balance -2992.95 / -2992.95 -1797.59 / -2377.59 -1425.68 / -1425.68 Laboratory Results 12/09/19 14:00: Diff Path Review Reviewed 12/11/19 15:51: Sodium 137, Potassium 2.9 L, Chloride 98, Carbon Dioxide 31.0, Anion Gap 8, BUN 18, Creatinine 1.38 H, Estim Creat Clear Calc 30.42, Est GFR (MDRD) Af Amer 48 L, Est GFR (MDRD) Non-Af 40 L, BUN/Creatinine Ratio 13.0, Glucose 137 H, Calcium 10.4 H 12/12/19 05:40: Sodium 138, Potassium 2.0 L*, Chloride 91 L, Carbon Dioxide 35.0 H, Anion Gap 12, BUN 21 H, Creatinine 1.12 H, Estim Creat Clear Calc 37.48, Est GFR (MDRD) Af Amer 61, Est GFR (MDRD) Non-Af 50 L, BUN/Creatinine Ratio 18.8, Glucose 138 H, Calcium 10.6 H Current Medications Acetaminophen (Tylenol) 650 mg PO Q6H PRN PRN PRN Reason: Pain Score 1-10/Temp > 100.7 F Albuterol/Ipratropium (Duoneb) 3 ml INHALATION Q4H.RT PRN PRN Reason: SOB &/OR WHEEZING Budesonide (Pulmicort Aerosol) 0.5 mg INHALATION BID.RT [facility] Last Admin: 12/12/19 07:40 Dose: 0.5 mg Documented by: Furosemide (Lasix) 40 mg IV BID@1000,1800 [facility] Guaifenesin (Mucinex) 1,200 mg PO BID [facility] Last Admin: 12/12/19 10:30 Dose: 1,200 mg Documented by: Sodium Chloride () 250 mls @ 15 mls/hr IV .[id number] PRN PRN Reason: Saline Flush Last Infusion: 12/11/19 15:20 Dose: 0 mls/hr Documented by: Sodium Chloride () 250 mls @ 15 mls/hr IV .[id number] PRN PRN Reason: Additional IVPB Infusion Levothyroxine Sodium (Synthroid) 50 mcg PO DAILY@0600 [facility] Last Admin: 12/12/19 04:16 Dose: 50 mcg Documented by: Loratadine (Claritin) 10 mg PO DAILY [facility] Last Admin: 12/12/19 10:30 Dose: 10 mg Documented by: Metolazone (Zaroxolyn) 2.5 mg PO DAILY [facility] Last Admin: 12/12/19 10:31 Dose: 2.5 mg Documented by: Metoprolol Succinate (Toprol Xl (Beta Delmer)) 50 mg PO DAILY [facility] Last Admin: 12/12/19 10:31 Dose: 50 mg Documented by: Pantoprazole Sodium (Protonix) 40 mg PO DAILY [facility] Last Admin: 12/12/19 10:30 Dose: 40 mg Documented by: Addendum: Dr. Duran I personally examined the patient and reviewed the chart. I agree with the above. 74-year-old female presenting with acute on chronic systolic and diastolic heart failure. She is about 20 to 25 pounds over her normal dry weight. She was started on a Lasix drip and was diuresed over 21 pounds since admission. We will transition her to twice daily IV dosing and continue to monitor her output. If she is back to her normal dry weight tomorrow could plan for discharge. Blood pressure has been stable, as is heart rate. She is 93% on room air. Her last echo was in May 2019 with an EF of 55% and a pulmonary artery systolic pressure of 40 mmHg. No need to repeat at this time. Inpatient E&M: [id number] [facility] Hosp L2
--- NOTE | 2019-12-12 13:31 | CASEMGMT ---
SW completed a Palliative Screening Tool on patient and she scored a 1. SW did not talk with patient about Palliative Care at this time. Keara SHIN MSW
[2019-12-12 14:20] LABS: Pathologist Review Reviewed
--- NOTE | 2019-12-12 14:47 | CASEMGMT ---
Patient has a Healthcare Power of Low Voltage Electrician and a Healthcare Living Will. She is aware they are not on file at [facility]. Her daughter Megan is her Healthcare Power of Low Voltage Electrician. Keara ROOT
[2019-12-12 15:50] LABS: Anion Gap 10 (5-15); BUN 21 mg/dL (7-18); BUN/Creat Ratio 17.5 RATIO (10-20); Calcium,Total 10.8 mg/dL (8.5-10.1); Chloride 91 mmol/L (98-107); EST Glomerular Filtration Rate 47 mL/min (>60); Est Glom Filt Rate - Afr Amer 56 mL/min (>60); Estimated Creatinine Clearance 34.98 ml/min; Glucose 143 mg/dL (74-106); Potassium 2.7 mmol/L (3.5-5.1); Sodium Level 136 mmol/L (136-145)
[2019-12-12] MEDS: Furosemide 40 MG/4 ML Vial IV (17:39)
[2019-12-13] VITALS (15 sets, daily range): BP systolic 102–136; BP diastolic 52–72; PULSE 58–96; RESP 16–18; TEMP 36.5–37; O2SAT 90–94
[2019-12-13 05:41] LABS: Anion Gap 6 (5-15); BUN 20 mg/dL (7-18); BUN/Creat Ratio 17.9 RATIO (10-20); Calcium,Total 10.2 mg/dL (8.5-10.1); Chloride 94 mmol/L (98-107); Creatinine, Serum 1.12 mg/dL (0.55-1.02); EST Glomerular Filtration Rate 50 mL/min (>60); Est Glom Filt Rate - Afr Amer 61 mL/min (>60); Estimated Creatinine Clearance 37.48 ml/min; Glucose 99 mg/dL (74-106); Potassium 2.6 mmol/L (3.5-5.1); Sodium Level 137 mmol/L (136-145)
[2019-12-13] MEDS: Levothyroxine 50 MCG Tablet PO (06:04)
[2019-12-13] MEDS: Potassium Chloride 10mEq/100mL 10 MEQ/100 ML IV.SOLN. 100 MEQ IV BOLUS ×6 (06:12→12:22)
[2019-12-13] MEDS: Budesonide Respules 0.5 MG/2 ML AMPUL.NEB. INHALATION ×2 (07:04→19:05)
[2019-12-13] MEDS: Loratadine 10 MG Tablet PO (10:10)
[2019-12-13] MEDS: guaiFENesin 1,200 MG Tablet 1200 MG PO (10:10)
[2019-12-13] MEDS: Furosemide 40 MG/4 ML Vial IV ×2 (10:10→17:37)
[2019-12-13] MEDS: Pantoprazole Sodium 40 MG Tablet PO (10:23)
[2019-12-13] MEDS: Metoprolol(XL)Succ 50 MG Tablet PO (10:23)
[2019-12-13] MEDS: Metolazone 2.5 MG Tablet PO (10:24)
--- NOTE | 2019-12-13 13:42 | PN_ITS ---
<Letitia Anaya AUXILIARY ENGINEER - Last Filed: 12/13/19 13:47> Subjective: Patient seen and examined. Reports significant improvement in lower extremity swelling however concerned for foot residual swelling. Shortness of breath significantly improved. - Physical Exam Vitals/I&O's: Vital Signs Temp Pulse Resp BP Pulse Ox 98.4 F 65 18 133/66 H 93 12/13/19 13:32 12/13/19 13:32 12/13/19 13:32 12/13/19 13:32 12/13/19 13:32 Oxygen Flow Rate (L/min) 1 Oxygen Delivery Method Room Air Weight: 205 lb 4.006 oz Body Mass Index (BMI) 38.7 Intake and Output for Last 24 Hours 12/11/19 12/12/19 12/13/19 23:59 23:59 23:59 Intake Total 1702.41 / 2122.41 2579.32 / 2579.32 898.33 / 898.33 Output Total 3500 / 4500 4000 / 4000 900 / 900 Balance -1797.59 / -2377.59 -1420.68 / -1420.68 -1.67 / -1.67 General: Alert, Oriented x3, Cooperative HEENT: Atraumatic, PERRLA, EOMI, Normocephalic Oral: Dry Mucosa Neck: Supple, No JVD, Negative Carotid Bruits Lungs: Clear to auscultation, Diminished Cardiovascular: Regular rate, No murmurs Abdomen: Bowel Sounds Present, Soft, Non Tender, Non-Distended, Obese Extremities: No clubbing, No cyanosis, Edema - Bilateral lower extremities, Sanjay wraps in place Skin: No rashes, No breakdown Musculoskeletal: No Tenderness to Palpation of Joints or Extremities Neurological: Cranial nerves II-XII grossly intact, Neuro grossly intact Psych/Mental Status: Normal Affect, Appropriate Laboratory Results 12/09/19 14:00: Diff Path Review Reviewed 12/12/19 14:58: Sodium 136, Potassium 2.7 L*, Chloride 91 L, Carbon Dioxide 35.0 H, Anion Gap 10, BUN 21 H, Creatinine 1.20 H, Estim Creat Clear Calc 34.98, Est GFR (MDRD) Af Amer 56 L, Est GFR (MDRD) Non-Af 47 L, BUN/Creatinine Ratio 17.5, Glucose 143 H, Calcium 10.8 H 12/13/19 05:10: Sodium 137, Potassium 2.6 L*, Chloride 94 L, Carbon Dioxide 37.0 H, Anion Gap 6, BUN 20 H, Creatinine 1.12 H, Estim Creat Clear Calc 37.48, Est GFR (MDRD) Af Amer 61, Est GFR (MDRD) Non-Af 50 L, BUN/Creatinine Ratio 17.9, Glucose 99, Calcium 10.2 H Current Medications Acetaminophen (Tylenol) 650 mg PO Q6H PRN PRN PRN Reason: Pain Score 1-10/Temp > 100.7 F Albuterol/Ipratropium (Duoneb) 3 ml INHALATION Q4H.RT PRN PRN Reason: SOB &/OR WHEEZING Budesonide (Pulmicort Aerosol) 0.5 mg INHALATION BID.RT [facility] Last Admin: 12/13/19 07:04 Dose: 0.5 mg Documented by: Furosemide (Lasix) 40 mg IV BID@1000,1800 [facility] Last Admin: 12/13/19 10:10 Dose: 40 mg Documented by: Guaifenesin (Mucinex) 1,200 mg PO BID [facility] Last Admin: 12/13/19 10:10 Dose: 1,200 mg Documented by: Sodium Chloride () 250 mls @ 15 mls/hr IV .[id number] PRN PRN Reason: Saline Flush Last Infusion: 12/11/19 15:20 Dose: 0 mls/hr Documented by: Sodium Chloride () 250 mls @ 15 mls/hr IV .[id number] PRN PRN Reason: Additional IVPB Infusion Levothyroxine Sodium (Synthroid) 50 mcg PO DAILY@0600 [facility] Last Admin: 12/13/19 06:04 Dose: 50 mcg Documented by: Loratadine (Claritin) 10 mg PO DAILY [facility] Last Admin: 12/13/19 10:10 Dose: 10 mg Documented by: Metolazone (Zaroxolyn) 2.5 mg PO DAILY [facility] Last Admin: 12/13/19 10:24 Dose: 2.5 mg Documented by: Metoprolol Succinate (Toprol Xl (Beta Delmer)) 50 mg PO DAILY [facility] Last Admin: 12/13/19 10:23 Dose: 50 mg Documented by: Pantoprazole Sodium (Protonix) 40 mg PO DAILY [facility] Last Admin: 12/13/19 10:23 Dose: 40 mg Documented by: Medical Necessity - Tobacco Use Smoking Status: Former smoker Tobacco Use: Cigarettes Assessment/Plan All Active Problems (Last Reviewed 12/09/19 @ 13:[address] Jr Smith MD) Ascites (Acute) Dyspnea on exertion (Resolved) Elevated troponin (Resolved) Epistaxis (Resolved) Iron deficiency anemia (Resolved) 1. Acute on chronic combined systolic and diastolic heart failure-BNP 627. Chest x-ray consistent with CHF. Patient reports 28 pound weight gain. Strict I&O. Daily weight. Echo May 2019 demonstrates an EF of 55%, pulmonary artery systolic pressure 40 mmHg. -23 lbs per daily weights. Discontinued Lasix drip due to significant hypokalemia and increasing bicarb. IV Lasix 40 mg twice daily. Continue potassium replacement and trend BMP. 2. Rheumatic heart disease status post mitral valve replacement and aortic valve replacement-stable per echo May 2019. 3. Status post pacemaker placement 4. Persistent atrial fibrillation-continue metoprolol. 5. Hypertension-stable, continue metoprolol. 6. Hyperlipidemia-continue statin. 7. Hypothyroidism-continue Synthroid regimen. 8. Chronic COPD-no exacerbation. As needed albuterol aerosol. 9. History of hemangiomas-eye, liver. No oral anticoagulation. 10. Chronic kidney disease stage III-at baseline, trend BMP. 11. Type 2 diabetes mellitus-not on regimen. Hemoglobin A1c July 2019 4.8%. 12. Iron deficiency anemia- follows with Dr. Francis. Routine IV iron infusions. 13. CELESTINO-continue home Pap regimen. 14. History of DVT-no longer on anticoagulation. 15. Obesity-encouraged diet and lifestyle modifications. 16. Hypokalemia-replace per protocol. Trend BMP. DVT prophylaxis-heparin subcu This patient was seen by DONIS Torres under the supervision of Dr. Duran. <Yvan Duran F - Last Filed: 12/13/19 14:45> - Physical Exam Vitals/I&O's: Vital Signs Temp Pulse Resp BP Pulse Ox 98.4 F 65 18 133/66 H 90 12/13/19 13:32 12/13/19 13:32 12/13/19 13:32 12/13/19 13:32 09/15/20 13:50 Oxygen Flow Rate (L/min) 1 Oxygen Delivery Method Room Air Weight: 205 lb 4.006 oz Body Mass Index (BMI) 38.7 Intake and Output for Last 24 Hours 12/11/19 12/12/19 12/13/19 23:59 23:59 23:59 Intake Total 1702.41 / 2122.41 2579.32 / 2579.32 998.33 / 998.33 Output Total 3500 / 4500 4000 / 4000 900 / 900 Balance -1797.59 / -2377.59 -1420.68 / -1420.68 98.33 / 98.33 Laboratory Results 12/12/19 14:58: Sodium 136, Potassium 2.7 L*, Chloride 91 L, Carbon Dioxide 35.0 H, Anion Gap 10, BUN 21 H, Creatinine 1.20 H, Estim Creat Clear Calc 34.98, Est GFR (MDRD) Af Amer 56 L, Est GFR (MDRD) Non-Af 47 L, BUN/Creatinine Ratio 17.5, Glucose 143 H, Calcium 10.8 H 12/13/19 05:10: Sodium 137, Potassium 2.6 L*, Chloride 94 L, Carbon Dioxide 37.0 H, Anion Gap 6, BUN 20 H, Creatinine 1.12 H, Estim Creat Clear Calc 37.48, Est GFR (MDRD) Af Amer 61, Est GFR (MDRD) Non-Af 50 L, BUN/Creatinine Ratio 17.9, Glucose 99, Calcium 10.2 H 12/13/19 13:40: Potassium 3.5 Current Medications Acetaminophen (Tylenol) 650 mg PO Q6H PRN PRN PRN Reason: Pain Score 1-10/Temp > 100.7 F Albuterol/Ipratropium (Duoneb) 3 ml INHALATION Q4H.RT PRN PRN Reason: SOB &/OR WHEEZING Budesonide (Pulmicort Aerosol) 0.5 mg INHALATION BID.RT [facility] Last Admin: 12/13/19 07:04 Dose: 0.5 mg Documented by: Furosemide (Lasix) 40 mg IV BID@1000,1800 [facility] Last Admin: 12/13/19 10:10 Dose: 40 mg Documented by: Guaifenesin (Mucinex) 1,200 mg PO BID [facility] Last Admin: 12/13/19 10:10 Dose: 1,200 mg Documented by: Sodium Chloride () 250 mls @ 15 mls/hr IV .[id number] PRN PRN Reason: Saline Flush Last Infusion: 12/11/19 15:20 Dose: 0 mls/hr Documented by: Sodium Chloride () 250 mls @ 15 mls/hr IV .[id number] PRN PRN Reason: Additional IVPB Infusion Levothyroxine Sodium (Synthroid) 50 mcg PO DAILY@0600 [facility] Last Admin: 12/13/19 06:04 Dose: 50 mcg Documented by: Loratadine (Claritin) 10 mg PO DAILY [facility] Last Admin: 12/13/19 10:10 Dose: 10 mg Documented by: Metolazone (Zaroxolyn) 2.5 mg PO DAILY [facility] Last Admin: 12/13/19 10:24 Dose: 2.5 mg Documented by: Metoprolol Succinate (Toprol Xl (Beta Delmer)) 50 mg PO DAILY [facility] Last Admin: 12/13/19 10:23 Dose: 50 mg Documented by: Pantoprazole Sodium (Protonix) 40 mg PO DAILY [facility] Last Admin: 12/13/19 10:23 Dose: 40 mg Documented by: Potassium Chloride (K-Dur) 40 meq PO X1 ONE Stop: 12/13/19 18:01 Addendum: Dr. Duran I personally examined the patient and reviewed the chart. I agree with the ab barth. 74-year-old female presenting with acute on chronic systolic and diastolic heart failure. She is about 20 to 25 pounds over her normal dry weight. She was started on a Lasix drip and was diuresed over 21 pounds since admission. We will transition her to twice daily IV dosing and continue to monitor her output. If she is back to her normal dry weight tomorrow could plan for discharge. Bl ood pressure has been stable, as is heart rate. She is 93% on room air. Her last echo was in May 2019 with an EF of 55% and a pulmonary artery systolic pressure of 40 mmHg. No need to repeat at this time. 12/13/2019: Feels a bit better today, she is down 2 pounds from yesterday. She is still diuresing pretty well though she is off the Lasix drip. Bicarb is climbing so we will continue to monitor. Her potassium is also low and she has needed fairly significant replacement repeat check this afternoon is 3.5 so hopefully that stays into the morning. I extensive discussions with her on her approach to her diuretic therapy at home. That she needs to check her weights daily and if she gains in her between 5 and 10 pounds that she is to take an extra dose of her Lasix and call cardiology. Also she is to be on a salt restriction and fluid restriction when she goes home, she states that she thinks this time around she had the issue because of increase in salt intake. Inpatient E&M: 17300 Subs Hosp L2
[2019-12-13 13:54] LABS: Potassium 3.5 mmol/L (3.5-5.1)
[2019-12-14] VITALS (8 sets, daily range): BP systolic 104–113; BP diastolic 68–71; PULSE 61–77; RESP 16–18; TEMP 36.3–36.8; O2SAT 90–95
[2019-12-14] MEDS: Levothyroxine 50 MCG Tablet PO (06:10)
[2019-12-14] MEDS: Budesonide Respules 0.5 MG/2 ML AMPUL.NEB. INHALATION (06:42)
[2019-12-14] MEDS: Ipratropium/Albuterol Sulfate 3 ML AMPUL.NEB INHALATION (06:42)
[2019-12-14 07:08] LABS: Anion Gap 4 (5-15); BUN 20 mg/dL (7-18); BUN/Creat Ratio 18.9 RATIO (10-20); Calcium,Total 10.1 mg/dL (8.5-10.1); Chloride 97 mmol/L (98-107); Creatinine, Serum 1.06 mg/dL (0.55-1.02); EST Glomerular Filtration Rate 54 mL/min (>60); Est Glom Filt Rate - Afr Amer 65 mL/min (>60); Glucose 94 mg/dL (74-106); Potassium 2.5 mmol/L (3.5-5.1); Sodium Level 137 mmol/L (136-145)
[2019-12-14] MEDS: Potassium Chloride 10mEq/100mL 10 MEQ/100 ML IV.SOLN. 100 MEQ IV BOLUS ×2 (08:53→10:53)
[2019-12-14] MEDS: Pantoprazole Sodium 40 MG Tablet PO (09:27)
[2019-12-14] MEDS: Metolazone 2.5 MG Tablet PO (09:27)
[2019-12-14] MEDS: guaiFENesin 1,200 MG Tablet 1200 MG PO (09:27)
[2019-12-14] MEDS: Loratadine 10 MG Tablet PO (09:27)
[2019-12-14] MEDS: Metoprolol(XL)Succ 50 MG Tablet PO (09:27)
--- NOTE | 2019-12-14 10:33 | PCM.DC ---
You will use the following diet at home:: Cardiac, Fluid restricted (specify 2000 mls, 1500 mls) - 1500 cc, Other - Low-sodium diet Discharge Activity: Return to Normal Activity Call your doctor if you observe: Shortness of breath, Dizziness, Fainting spells, - - Call your doctor if you gain more than 2 pounds in 1 day or 5 pounds in 1 week. Allergies/Adverse Reactions: Allergies Penicillins Allergy (Severe, Verified 12/09/19 13:42) Hives swelling of tongue and throat codeine Adverse Reaction (Severe, Verified 12/09/19 13:42) HALLUCINATIONS morphine Adverse Reaction (Severe, Verified 12/09/19 13:42) HALLUCINATIONS Asqwmhb-Hie-Fwq Reductase Inhibitor Adverse Reaction (Severe, Verified 12/09/19 14:57) leg cramps leg cramps blood thinners Adverse Reaction (Uncoded 12/09/19 17:38) Bleeding Medications to take at Discharge albuterol sulfate 90 mcg/actuation aerosol inhaler 2 puff INHALATION Q6H PRN PRN 06/11/17 fluticasone 250 mcg-salmeterol 50 mcg/dose blistr powdr for inhalation 1 inh INHALATION Q12H 06/11/17 levothyroxine 50 mcg tablet 50 mcg PO DAILY tab 06/11/17 Cholecalciferol (VIT D3) [Vitamin D3] 1,000 unit PO DAILY 06/01/18 furosemide 40 mg tablet 80 mg PO BID tab 12/06/19 Cetirizine HCl [Zyrtec] 10 mg PO DAILY 12/09/19 Metoprolol Succinate 50 mg PO DAILY 12/09/19 Pantoprazole Sodium [Protonix] 40 mg PO DAILY 12/09/19 Metolazone 2.5 mg PO QWEEK #30 tab 12/14/19 Potassium Chloride [K-Dur] 60 meq PO BID #360 tab 12/14/19 The following prescriptions were given: Metolazone 2.5 mg PO QWEEK #30 tab Transmission Status: Pending to Fingerprint #30 Orders to be completed after discharge: Basic Metabolic Profile (BMP) Time Frame: 1 Day, Facility: [facility], Location: Laboratory Primary Care Physician: Lalita Stroud MD [Primary Care Provider] - Please follow up with your Primary Care Physician in: 1 Week Test Results: Test results from this visit will be discussed in further detail at your follow-up appointment, if applicable. Please Follow Up With: Delisa Lainze PA When: 2 Weeks Proposed Discharge Date: 12/14/19
--- NOTE | 2019-12-14 11:45 | PCM.DC.SUM ---
<Letitia Anaya SOFTWARE PROJECT LEAD - Last Filed: 12/14/19 11:53> Discharge Date and Diagnosis Date of Admission: 12/09/19 Date of Discharge: 12/14/19 - Primary Discharge Diagnosis Acute Problems: 1. Acute on chronic combined systolic and diastolic heart failure 2. Rheumatic heart disease status post mitral valve replacement and aortic valve replacement 3. Status post pacemaker placement 4. Persistent atrial fibrillation 5. Hypertension 6. Hyperlipidemia 7. Hypothyroidism 8. Chronic COPD 9. History of hemangiomas 10. Chronic kidney disease stage III 11. Type 2 diabetes mellitus 12. Iron deficiency anemia 13. CELESTINO 14. History of DVT 15. Obesity 16. Hypokalemia - Secondary Discharge Diagnosis Chronic Problems: Chronic Problems (Last Reviewed 12/09/19 @ 13:[address] 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 Prior CABG. Mild degree of vascular congestion/CHF with blunting of both costophrenic angle. Electronically Signed: Nate Walker, at 14:44 EDT , Service support , Operations: None Procedures: None Summary of Care Provided: The patient is a 74 year old F admitted 12/09/2019 due to shortness of breath and lower extremity swelling, 28 pound weight gain. 1. Acute on chronic combined systolic and diastolic heart failure-BNP 627. Chest x-ray on admission consistent with CHF. Patient reports 28 pound weight gain prior to admission. Echo May 2019 demonstrates an EF of 55%, pulmonary artery systolic pressure 40 mmHg. -23 lbs per daily weights. Discontinued Lasix drip due to significant hypokalemia and increasing bicarb. -27 pounds during admission. Lower extremity swelling significantly improved. Patient denies further shortness of breath. Walking pulse ox completed and patient remained stable on room air. Discharged on 80 mg oral Lasix twice daily and metolazone 2.5 mg weekly on Thursday. Discussed with patient continuing daily weights and report 2 pound weight gain in 1 day or 5 pound weight gain in 1 week to cardiology. Continue ADARSH hose during the day, may take off at night. Patient will need to return tomorrow for repeat BMP to reassess potassium. Discharged on potassium 60 mill equivalents twice daily. Follow-up with cardiology in 2 weeks. 2. Rheumatic heart disease status post mitral valve replacement and aortic valve replacement-stable per echo May 2019. 3. Status post pacemaker placement 4. Persistent atrial fibrillation-continue metoprolol. 5. Hypertension-stable, continue metoprolol. 6. Hyperlipidemia-continue statin. 7. Hypothyroidism-continue Synthroid regimen. 8. Chronic COPD-no exacerbation. As needed albuterol aerosol. 9. History of hemangiomas-eye, liver. No oral anticoagulation. 10. Chronic kidney disease stage III-at baseline, has remained stable despite IV Lasix. 11. Type 2 diabetes mellitus-not on regimen. Hemoglobin A1c July 2019 4.8%. 12. Iron deficiency anemia- follows with Dr. Francis. Routine IV iron infusions. IV Venofer x1 during admission. Resume outpatient infusions. 13. CELESTINO-continue home Pap regimen. 14. History of DVT-no longer on anticoagulation. 15. Obesity-encouraged diet and lifestyle modifications. 16. Hypokalemia-replaced per protocol. Follow BMP as outpatient. General: Alert, Oriented x3, Cooperative HEENT: Atraumatic, PERRLA, EOMI, Normocephalic Oral: Dry Mucosa Neck: Supple, No JVD, Negative Carotid Bruits Lungs: Clear to auscultation, Diminished Cardiovascular: Regular rate, No murmurs Abdomen: Bowel Sounds Present, Soft, Non Tender, Non-Distended, Obese Extremities: No clubbing, No cyanosis, Edema - Bilateral lower extremities, Sanjay wraps in place Skin: No rashes, No breakdown Musculoskeletal: No Tenderness to Palpation of Joints or Extremities Neurological: Cranial nerves II-XII grossly intact, Neuro grossly intact Psych/Mental Status: Normal Affect, Appropriate Patient seen and examined prior to discharge. Physical assessment as noted above. Patient is stable for discharge with follow up recommendations as noted above. This patient was seen by DONIS Torres under the supervision of Dr. Duran. - Physical Exam Vitals/I&O's: Vital Signs Temp Pulse Resp BP Pulse Ox 98.3 F 61 18 111/68 93 12/14/19 09:25 12/14/19 09:27 12/14/19 09:25 12/14/19 09:25 12/14/19 10:58 Oxygen Flow Rate (L/min) 1 Oxygen Delivery Method Room Air Weight: 201 lb 8.04 oz Body Mass Index (BMI) 38.7 Intake and Output for Last 24 Hours 12/12/19 12/13/19 12/14/19 23:59 23:59 23:59 Intake Total 2579.32 / 2579.32 1238.33 / 1438.33 540 / 540 Output Total 4000 / 4000 1300 / 2025 975 / 975 Balance -1420.68 / -1420.68 -61.67 / -586.67 -435 / -435 Laboratory Results 12/13/19 13:40: Potassium 3.5 12/14/19 05:55: Sodium 137, Potassium 2.5 L*, Chloride 97 L, Carbon Dioxide 36.0 H, Anion Gap 4 L, BUN 20 H, Creatinine 1.06 H, Estim Creat Clear Calc 39.60, Est GFR (MDRD) Af Amer 65, Est GFR (MDRD) Non-Af 54 L, BUN/Creatinine Ratio 18.9, Glucose 94, Calcium 10.1 Current Medications Acetaminophen (Tylenol) 650 mg PO Q6H PRN PRN PRN Reason: Pain Score 1-10/Temp > 100.7 F Albuterol/Ipratropium (Duoneb) 3 ml INHALATION Q4H.RT PRN PRN Reason: SOB &/OR WHEEZING Last Admin: 12/14/19 06:42 Dose: 3 ml Documented by: Budesonide (Pulmicort Aerosol) 0.5 mg INHALATION BID.RT JAZMIN Last Admin: 12/14/19 06:42 Dose: 0.5 mg Documented by: Guaifenesin (Mucinex) 1,200 mg PO BID [facility] Last Admin: 12/14/19 09:27 Dose: 1,200 mg Documented by: Sodium Chloride () 250 mls @ 15 mls/hr IV .[id number] PRN PRN Reason: Saline Flush Last Infusion: 12/11/19 15:20 Dose: 0 mls/hr Documented by: Sodium Chloride () 250 mls @ 15 mls/hr IV .[id number] PRN PRN Reason: Additional IVPB Infusion Levothyroxine Sodium (Synthroid) 50 mcg PO DAILY@0600 [facility] Last Admin: 12/14/19 06:10 Dose: 50 mcg Documented by: Loratadine (Claritin) 10 mg PO DAILY [facility] Last Admin: 12/14/19 09:27 Dose: 10 mg Documented by: Metolazone (Zaroxolyn) 2.5 mg PO DAILY [facility] Last Admin: 12/14/19 09:27 Dose: 2.5 mg Documented by: Metoprolol Succinate (Toprol Xl (Beta Delmer)) 50 mg PO DAILY [facility] Last Admin: 12/14/19 09:27 Dose: 50 mg Documented by: Pantoprazole Sodium (Protonix) 40 mg PO DAILY [facility] Last Admin: 12/14/19 09:27 Dose: 40 mg Documented by: Discharge Diet: Low fat/ Low Cholesterol, 8 Cup Fluid Restriciton, 2000 mg Sodium Diet Discharge Activity: Return to Normal Activity Call your doctor if you observe: Shortness of breath, Dizziness, Fainting spells, - - Call your doctor if you gain more than 2 pounds in 1 day or 5 pounds in 1 week. Home Medications: Medications to take at Discharge albuterol sulfate 90 mcg/actuation aerosol inhaler 2 puff INHALATION Q6H PRN PRN 06/11/17 fluticasone 250 mcg-salmeterol 50 mcg/dose blistr powdr for inhalation 1 inh INHALATION Q12H 03/15/18 levothyroxine 50 mcg tablet 50 mcg PO DAILY tab 06/11/17 Cholecalciferol (VIT D3) [Vitamin D3] 1,000 unit PO DAILY 06/01/18 furosemide 40 mg tablet 80 mg PO BID tab 12/06/19 Cetirizine HCl [Zyrtec] 10 mg PO DAILY 12/09/19 Metoprolol Succinate 50 mg PO DAILY 12/09/19 Pantoprazole Sodium [Protonix] 40 mg PO DAILY 12/09/19 Potassium Chloride [K-Dur] 60 meq PO BID #360 tab 12/14/19 metolazone 2.5 mg tablet 2.5 mg PO QWEEK #45 tab 12/14/19 Other Amb Orders: Basic Metabolic Profile (BMP) Time Frame: 1 Day, Facility: [facility], Location: Laboratory Primary Care Physician: Lalita Stroud MD [Primary Care Provider] - Please follow up with your Primary Care Physician in: 1 Week Please Follow Up With: Delisa Lainez PA When: 2 Weeks Disposition: Home Minutes spent on discharge:: 35 Patient Condition:: Stable Medical Necessity - Tobacco Use Smoking Status: Former smoker Tobacco Use: Cigarettes Meaningful Use Info Meaningful Use Diagnoses (Choose all that apply): CHF - CHF SANJAY/ARB ordered at discharge?: No Reason SANJAY/ARB not ordered?: Hypotension Documented LVEF (%): 55 <Yvan Duran - Last Filed: 12/14/19 17:05> Discharge Date and Diagnosis - Secondary Discharge Diagnosis Chronic Problems: Chronic Problems (Last Reviewed 12/09/19 @ 13:[address] 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) Non-rheumatic tricuspid valve insufficiency (Chronic) Secondary pulmonary arterial hypertension (Chronic) Essential (primary) hypertension (Chronic) GI bleed (Chronic 01/18/19) Iron deficiency anemia due to chronic blood loss (Chronic) Hospital Course and Treatment Summary of Care Provided: The patient is a 74 year old F [] - Physical Exam Vitals/I&O's: Vital Signs Temp Pulse Resp BP Pulse Ox 98.3 F 61 18 111/68 93 12/14/19 09:25 12/14/19 09:27 12/14/19 09:25 12/14/19 09:25 12/14/19 10:58 Oxygen Flow Rate (L/min) 1 Oxygen Delivery Method Room Air Weight: 201 lb 8.04 oz Body Mass Index (BMI) 38.7 Intake and Output for Last 24 Hours 12/12/19 12/13/19 12/14/19 23:59 23:59 23:59 Intake Total 2579.32 / 2579.32 1238.33 / 1438.33 880 / 880 Output Total 4000 / 4000 1300 / 2025 1325 / 1325 Balance -1420.68 / -1420.68 -61.67 / -586.67 -445 / -445 Laboratory Results 12/14/19 05:55: Sodium 137, Potassium 2.5 L*, Chloride 97 L, Carbon Dioxide 36.0 H, Anion Gap 4 L, BUN 20 H, Creatinine 1.06 H, Estim Creat Clear Calc 39.60, Est GFR (MDRD) Af Amer 65, Est GFR (MDRD) Non-Af 54 L, BUN/Creatinine Ratio 18.9, Glucose 94, Calcium 10.1 12/14/19 12:34: Potassium 3.5 Addendum: Dr. Duran I personally examined the patient and reviewed the chart. I agree with the above. 74-year-old female presenting with acute on chronic systolic and diastolic heart failure. She is about 20 to 25 pounds over her normal dry weight. She was started on a Lasix drip and was diuresed over 21 pounds since admission. We will transition her to twice daily IV dosing and continue to monitor her output. If she is back to her normal dry weight tomorrow could plan for discharge. Blood pressure has been stable, as is heart rate. She is 93% on room air. Her last echo was in May 2019 with an EF of 55% and a pulmonary artery systolic pressure of 40 mmHg. No need to repeat at this time. 12/13/2019: Feels a bit better today, she is down 2 pounds from yesterday. She is still diuresing pretty well though she is off the Lasix drip. Bicarb is climbing so we will continue to monitor. Her potassium is also low and she has needed fairly significant replacement repeat check this afternoon is 3.5 so hopefully that stays into the morning. I extensive discussions with her on her approach to her diuretic therapy at home. That she needs to check her weights daily and if she gains in her between 5 and 10 pounds that she is to take an extra dose of her Lasix and call cardiology. Also she is to be on a salt restriction and fluid restriction when she goes home, she states that she thinks this time around she had the issue because of increase in salt intake. 12/14/2019: She is doing better today, she is down to 201 pounds on day of discharge. I discussed with her once again at length about daily weights and being able to take an extra Lasix if she notices that her weight is creeping up. At that time she should also be talking to cardiology. She will continue on her Lasix 80 mg p.o. twice daily as well as her metolazone and follow-up with cardiology. She has been having some difficulty with her potassium and this is secondary to both Lasix and the fact that her bicarb is 36, which is coming down. She will be discharged on potassium supplementation will need to follow-up with her primary care doctor or ceramic saw tender in a few days for outpatient BMP to monitor potassium. This was discussed with her in person as well. I discussed the plan for discharge today and she expressed understanding the risks and benefits of going home. Inpatient E&M: 20842 Disch Hosp
--- NOTE | 2019-12-14 11:55 | CASEMGMT ---
Pt does not qualify for home oxygen at this time and has been independent in the room. Pt voices no further questions/concerns/needs at this time. Pt awaiting dispo. Arabella PARRA CM
[2019-12-14 12:49] LABS: Potassium 3.5 mmol/L (3.5-5.1)
--- NOTE | 2019-12-14 14:25 | PHA.DC.MC ---
Pharmacy Service has performed discharge medication reconciliation and counseling for this patient. 1. METOLAZONE 2.5MG PO WEEKLY (ON THURSDAY) The patient's discharge medication list was reviewed for discrepancies and discrepancies were resolved. Home Medications albuterol sulfate 90 mcg/actuation aerosol inhaler 2 puff INHALATION Q6H PRN PRN 06/11/17 fluticasone 250 mcg-salmeterol 50 mcg/dose blistr powdr for inhalation 1 inh INHALATION Q12H 06/11/17 levothyroxine 50 mcg tablet 50 mcg PO DAILY tab 06/11/17 Cholecalciferol (VIT D3) [Vitamin D3] 1,000 unit PO DAILY 06/01/18 furosemide 40 mg tablet 80 mg PO BID tab 12/06/19 Cetirizine HCl [Zyrtec] 10 mg PO DAILY 12/09/19 Metoprolol Succinate 50 mg PO DAILY 12/09/19 Pantoprazole Sodium [Protonix] 40 mg PO DAILY 12/09/19 Potassium Chloride [K-Dur] 60 meq PO BID #360 tab 12/14/19 metolazone 2.5 mg tablet 2.5 mg PO QWEEK #45 tab 12/14/19 The patient was counseled on the following discharge medications and changes in medications for homegoing were reviewed. The Reason for Use, instructions for use, and potential side effects were reviewed for all new medications. The patient's questions regarding all of their medications were answered. The patient was able to verbally demonstrate an understanding of their discharge medications.
--- NOTE | 2019-12-16 13:54 | CM.UR ---
RN SIRIA Discharge F/U Phone Call LACE: 12 Strata: 3 Discharge date: 12/14/2019 Call date: 12/16/2019 Call time: 1445 Admission dx: CHF Pt states has been doing 'Ok' since discharge. Pt states she is struggling some with low sodium meal planning/prep and states 'I may just have to get rid of all my food and start over.' Pt states that she spoke with cheese cutter thoroughly prior to discharge and this RN SIRIA offered OP cheese cutter/nutrition services info but pt declined at this time. Pt states that her son is working on an ca for her to use and her granddaughter suggested a meal prep company that could send her low sodium meal options. Pt states no questions regarding discharge instructions or medications at this time. Pt states has f/u appt's scheduled and plans to keep. Pt states no suggestions for [facility] at this time and states 'Everyone was so nice.' Pt voices no further questions/concerns/needs at this time. SStaten AIDA BEVERLY
== END 2019-12-14 14:26 | disposition home or self-care (01) | DRG 291 ==
LOC: ED 14:09 → PCU 15:02
PROVIDERS: Hospitalist; Internal Medicine; Nurse Practitioner Family; Admitting Provider Internal Medicine; Emergency Provider Emergency Medicine; PCP Family Medicine; Visit Provider Family Medicine
DX: I13.0 Hypertensive heart and chronic kidney disease with heart failure and stage 1 through stage 4 chronic kidney disease, or unspecified chronic kidney disease (principal); I50.43 Acute on chronic combined systolic (congestive) and diastolic (congestive) heart failure; I48.11 Longstanding persistent atrial fibrillation; R18.8 Other ascites; E66.9 Obesity, unspecified; E87.6 Hypokalemia; I08.0 Rheumatic disorders of both mitral and aortic valves; E11.22 Type 2 diabetes mellitus with diabetic chronic kidney disease; N18.3 Chronic kidney disease, stage 3 (moderate); G47.33 Obstructive sleep apnea (adult) (pediatric); J44.9 Chronic obstructive pulmonary disease, unspecified; E03.9 Hypothyroidism, unspecified; E78.5 Hyperlipidemia, unspecified; I42.8 Other cardiomyopathies; D50.9 Iron deficiency anemia, unspecified; Z95.0 Presence of cardiac pacemaker; Z86.718 Personal history of other venous thrombosis and embolism; Z95.3 Presence of xenogenic heart valve; Z68.39 Body mass index [BMI] 39.0-39.9, adult; Z79.890 Hormone replacement therapy; Z90.49 Acquired absence of other specified parts of digestive tract; Z87.19 Personal history of other diseases of the digestive system; Z79.899 Other long term (current) drug therapy; Z80.3 Family history of malignant neoplasm of breast; Z87.891 Personal history of nicotine dependence; Z90.710 Acquired absence of both cervix and uterus
CPT/HCPCS: 36415; 71045; 80048; 80053; 83735; 83880; 84100; 84132; 84484; 85025; 85027; 93005; 94640; 96365; 96366; 97162; 97165; 97802; 97803; 99251; 99285; J1756; J7050; A4216; G0463; J1940

== ENCOUNTER → 2019-12-15 12:02 | Outpatient (CLI) | payer MEDICARE, OTHER, SELFPAY ==
[2019-05-18 07:06] VITALS: BMI 34.4
[2019-12-09 16:16] VITALS: BMI 38.7
[2019-12-15 14:28] LABS: Anion Gap 8 (5-15); BUN 25 mg/dL (7-18); BUN/Creat Ratio 19.8 RATIO (10-20); Calcium,Total 10.3 mg/dL (8.5-10.1); Chloride 99 mmol/L (98-107); Creatinine, Serum 1.26 mg/dL (0.55-1.02); EST Glomerular Filtration Rate 44 mL/min (>60); Est Glom Filt Rate - Afr Amer 53 mL/min (>60); Glucose 112 mg/dL (74-106); Potassium 3.4 mmol/L (3.5-5.1); Sodium Level 138 mmol/L (136-145)
== END ==
PROVIDERS: PCP Family Medicine; Referring Provider Nurse Practitioner Family; Visit Provider Nurse Practitioner Family
DX: E87.6 Hypokalemia (principal)
CPT/HCPCS: 36415; 80048

== ENCOUNTER → 2019-12-28 | Outpatient (CLI) | payer MEDICARE, OTHER, SELFPAY ==
[2019-05-18 07:06] VITALS: BMI 34.4
[2019-12-28 10:20] VITALS: BMI 38.7
[2019-12-28 10:42] LABS: Absolute Lymphocyte Count 0.57 X10^3/uL (0.83-4.51); Absolute Neutrophil Count 6.2 X10^3/uL (2.0-7.7); Basophil# 0.09 X10^3/uL; Basophil% 1.1 % (0-1); Eosinophil# 0.08 X10^3/uL; Hematocrit 49.7 % (37-47); Lymphocyte # 0.57 X10^3/ul (4.0); Lymphocyte % 7.3 % (19-41); Mean Corp Hgb Conc 30.2 g/dL (32-36); Mean Corpuscular Hgb 26.2 pg (27.0-32.0); Mean Corpuscular Volume 86.9 fL (81-99); Mean Platelet Vol. 9.8 fl (6.2-12.0); Monocyte# 0.91 X10^3/uL; Monocyte% 11.6 % (0-10); NRBC Flagged by Analyzer 0 % (0-5); Neutrophil # 6.17 X10^3/uL (2.7-7.7); Neutrophil % 78.5 % (47-70); POSITIVE DIFFERENTIAL YES; POSITIVE MORPHOLOGY YES; Platelet Count 427 K/mm3 (150-450); RBC Distribution Width SD 76.4 fl (35.1-43.9); Red Blood Count 5.72 M/mm3 (4.2-5.4); White Blood Count 7.9 K/mm3 (4.4-11.0)
[2019-12-28 10:56] LABS: Differential Indicated SCAN CRITERIA MET
[2019-12-28 11:04] LABS: Anion Gap 5 (5-15); BUN 23 mg/dL (7-18); BUN/Creat Ratio 17.4 RATIO (10-20); Calcium,Total 10.1 mg/dL (8.5-10.1); Chloride 95 mmol/L (98-107); Creatinine, Serum 1.32 mg/dL (0.55-1.02); EST Glomerular Filtration Rate 42 mL/min (>60); Est Glom Filt Rate - Afr Amer 50 mL/min (>60); Glucose 126 mg/dL (74-106); Potassium 2.8 mmol/L (3.5-5.1); Sodium Level 135 mmol/L (136-145)
[2019-12-28 11:05] LABS: Anisocytosis 1+
[2019-12-28 11:14] LABS: Ferritin 138 ng/mL (8-252); Iron 61 ug/dL (50-170); Iron Binding Capacity,Total 432 ug/dL (250-450); PERCENT IRON SATURATION 14.1 % (15.0-55.0)
[2019-12-28 11:21] LABS: Vitamin B12 764 pg/mL (211-911)
== END | disposition home or self-care (01) ==
LOC: LAB 10:25
PROVIDERS: Internal Medicine Hematology & Oncology; PCP Family Medicine; Referring Provider Family Medicine; Visit Provider Family Medicine
DX: I50.42 Chronic combined systolic (congestive) and diastolic (congestive) heart failure (principal)
CPT/HCPCS: 36415; 80048; 82607; 82728; 83540; 83550; 85025

== ENCOUNTER → 2019-12-30 09:20 | Outpatient (CLI) | payer MEDICARE, OTHER, SELFPAY ==
[2019-05-18 07:06] VITALS: BMI 34.4
[2019-12-28 10:39] VITALS: BMI 32.8
[2019-12-30 10:30] LABS: Potassium 3.6 mmol/L (3.5-5.1)
== END ==
PROVIDERS: PCP Family Medicine; Referring Provider Nurse Practitioner Family; Visit Provider Nurse Practitioner Family
DX: E87.6 Hypokalemia (principal)
CPT/HCPCS: 36415; 84132

== ENCOUNTER → 2020-01-26 08:10 | Outpatient (CLI) | payer MEDICARE, OTHER, SELFPAY ==
[2019-05-18 07:06] VITALS: BMI 34.4
[2020-01-10 10:57] VITALS: BMI 32.4
[2020-01-26 09:32] LABS: Absolute Lymphocyte Count 1.02 X10^3/uL (0.83-4.51); Absolute Neutrophil Count 7.6 X10^3/uL (2.0-7.7); Basophil# 0.09 X10^3/uL; Basophil% 0.9 % (0-1); Eosinophil# 0.13 X10^3/uL; Eosinophils% 1.3 % (0-5); Hematocrit 48.6 % (37-47); Hemoglobin 14.9 g/dL (12.0-15.0); Lymphocyte # 1.02 X10^3/ul (4.0); Lymphocyte % 10.2 % (19-41); Mean Corp Hgb Conc 30.7 g/dL (32-36); Mean Corpuscular Hgb 26.5 pg (27.0-32.0); Mean Corpuscular Volume 86.5 fL (81-99); Monocyte# 1.11 X10^3/uL; Monocyte% 11.1 % (0-10); NRBC Flagged by Analyzer 0 % (0-5); Neutrophil # 7.57 X10^3/uL (2.7-7.7); Neutrophil % 75.9 % (47-70); POSITIVE MORPHOLOGY YES; Platelet Count 376 K/mm3 (150-450); RBC Distribution Width CV 23.3 % (11.6-14.6); RBC Distribution Width SD 73.2 fl (35.1-43.9); Red Blood Count 5.62 M/mm3 (4.2-5.4)
[2020-01-26 09:33] LABS: Differential Indicated SCAN CRITERIA MET
[2020-01-26 09:57] LABS: Anion Gap 11 (5-15); BUN 20 mg/dL (7-18); BUN/Creat Ratio 17.2 RATIO (10-20); Chloride 92 mmol/L (98-107); Creatinine, Serum 1.16 mg/dL (0.55-1.02); EST Glomerular Filtration Rate 48 mL/min (>60); Est Glom Filt Rate - Afr Amer 59 mL/min (>60); Glucose 145 mg/dL (74-106); Potassium 2.9 mmol/L (3.5-5.1); Sodium Level 137 mmol/L (136-145)
[2020-01-26 09:58] LABS: Ferritin 141 ng/mL (8-252); Iron 58 ug/dL (50-170); Iron Binding Capacity,Total 333 ug/dL (250-450); PERCENT IRON SATURATION 17.4 % (15.0-55.0)
[2020-01-26 10:06] LABS: Thyroid Stim Hormone (TSH) 3.68 uIU/mL (0.358-3.74)
[2020-01-26 10:12] LABS: Anisocytosis 1+; Differential Comment SCANNED; Red Cell Morphology N CHROM NORMAL (NORM C&C)
[2020-01-26 16:39] LABS: Xtra Tube EP Lab EXTRA TUBE
== END ==
PROVIDERS: Physician Assistant Medical; PCP Internal Medicine; Referring Provider Internal Medicine Hematology & Oncology; Visit Provider Internal Medicine Hematology & Oncology
DX: D64.9 Anemia, unspecified (principal); R18.8 Other ascites; R06.00 Dyspnea, unspecified; Z95.3 Presence of xenogenic heart valve; I42.8 Other cardiomyopathies; I50.42 Chronic combined systolic (congestive) and diastolic (congestive) heart failure; I38 Endocarditis, valve unspecified; I27.21 Secondary pulmonary arterial hypertension; I11.0 Hypertensive heart disease with heart failure
CPT/HCPCS: 36415; 80048; 82728; 83540; 83550; 84443; 85025

== ENCOUNTER → 2020-02-02 13:19 | Outpatient (CLI) | payer MEDICARE, OTHER, SELFPAY ==
[2019-05-18 07:06] VITALS: BMI 34.4
[2020-01-10 10:57] VITALS: BMI 32.4
[2020-01-31 11:30] VITALS: BMI 33.3
--- NOTE | 2020-02-02 13:21 | BI_ITS ---
MAMMOGRAPHY - BILATERAL SCREENING REASON FOR EXAM: Female, 74 years old. Routine annual screening examination. PERTINENT HISTORY: Grandmother with breast cancer. Aunt with breast cancer. TECHNIQUE: Digital bilateral breast vikas (3D mammographic acquisition) in the CC and MLO projections. 2-D mediolateral oblique (MLO) and craniocaudad (CC) views of both breasts were obtained. CAD: Full Field Digital Mammography with Computer Added Detection was performed. COMPARISON: Comparison is made with prior study dated 09/23/2017 and 02/24/2012. FINDINGS: Breast Composition: The breasts are almost entirely fatty. There are no dominant masses or suspicious calcifications. The previously seen 6 mm well-defined nodule in the deep inferior medial aspect of the right breast is not seen at this time. No other significant abnormalities are identified. There has been no significant change since the prior study. BI/SCREEN MAMM (CAD) W/VIKAS BILAT IMPRESSION: Stable bilateral screening mammogram. Yearly follow-up mammogram recommended. (A) ASSESSMENT CATEGORY: BIRADS Category 2: Benign. A letter regarding these results will be sent to the patient by the facility within 30 days. Approximately 10% of breast cancers are not detected by mammography. A normal mammogram should not delay biopsy of a clinically suspicious abnormality. [id number] Electronically Signed: Nate Walker, at 15:39 EST , Service support ,
--- NOTE | 2020-02-02 13:24 | BD_ITS ---
STUDY: DUAL ENERGY X-RAY ABSORPTIOMETRY / DXA REASON FOR EXAM: Female, 74 years old. 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 COMPARISON: Comparison is made with prior study dated 01/01/2010. FINDINGS: Lumbar Spine (L1-L4): g/cm2 (1.305) / T-score (1.0) / Z-score (2.8) Findings are suggestive of normal bone density with a low fracture risk. Left Femur Total: g/cm2 (0.845) / T-score (-1.3) / Z-score (0.5) Left Femoral Neck: g/cm2 (0.760) / T-score (-2.0) / Z-score (-0.1) Right Femur Total: g/cm2 (0.871) / T-score (-1.1) / Z-score (0.7) Right Femoral Neck: g/cm2 (0.794) / T-score (-1.8) / Z-score (0.2) The T-Scores on the most recent prior examination were: Lumbar Spine (L1-L4): There has been improvement of bone density since the previous examination. Left Femur Total: which represents a worsening of 22.9%. Right Femur Total: which represents a worsening of 20.8%. BD/Dexa Bone Density Study IMPRESSION: The patient is considered osteopenic as outlined below according to World Cullen Organization (WHO) criteria with a moderate fracture risk. There has been worsening of bone density since the previous examination. Reference Information: The T-score is the number of standard deviations above or below the standard which is normal for young adults at their peak bone mineral density. The World Health Organization (WHO) interprets the T-scores as follows: Above -1 Normal bone density Between -1 and -2.5 Osteopenia Equal to / or below -2.5 Osteoporosis As a practical clinical guideline, osteopenia may be graded as follows: Mild -1 through -1.5 Moderate -1.6 through -2.0 Severe -2.1 through -2.4 The Z-score is the number of standard deviations above or below age-matched controls. A Z-score of less than -1.5 would be considered abnormal. References: 1. NIH Osteoporosis and Related Bone Diseases www osteo.org 2. International Society for Clinical Densitometry www iscd.org 3. National Osteoporosis Foundation www nof.org Electronically Signed: Nate Walker, at 15:52 EST , Service support ,
== END ==
PROVIDERS: PCP Internal Medicine; Referring Provider Internal Medicine; Visit Provider Internal Medicine
DX: Z12.31 Encounter for screening mammogram for malignant neoplasm of breast (principal); Z78.0 Asymptomatic menopausal state; Z80.3 Family history of malignant neoplasm of breast
CPT/HCPCS: 77063; 77067; 77080

== ENCOUNTER → 2020-02-14 11:20 | Outpatient (CLI) | payer MEDICARE, OTHER, SELFPAY ==
[2019-05-18 07:06] VITALS: BMI 34.4
[2020-01-31 11:30] VITALS: BMI 33.3
[2020-02-14 13:00] LABS: Anion Gap 9 (5-15); BUN 26 mg/dL (7-18); BUN/Creat Ratio 21.1 RATIO (10-20); Calcium,Total 9.5 mg/dL (8.5-10.1); Chloride 98 mmol/L (98-107); Creatinine, Serum 1.23 mg/dL (0.55-1.02); EST Glomerular Filtration Rate 45 mL/min (>60); Est Glom Filt Rate - Afr Amer 55 mL/min (>60); Glucose 150 mg/dL (74-106); Potassium 3.5 mmol/L (3.5-5.1); Sodium Level 138 mmol/L (136-145)
== END ==
PROVIDERS: PCP Internal Medicine; Referring Provider Physician Assistant Medical; Visit Provider Physician Assistant Medical
DX: I50.42 Chronic combined systolic (congestive) and diastolic (congestive) heart failure (principal); I38 Endocarditis, valve unspecified
CPT/HCPCS: 36415; 80048

== ENCOUNTER → 2020-04-06 13:50 | Outpatient (CLI) | payer MEDICARE, OTHER, SELFPAY ==
[2019-05-18 07:06] VITALS: BMI 34.4
[2020-04-03 11:34] VITALS: BMI 33.0
== END ==
PROVIDERS: PCP Internal Medicine; Referring Provider Internal Medicine; Visit Provider Internal Medicine
DX: U07.1 COVID-19 (principal)
CPT/HCPCS: 87635; U0005; U0003

== ENCOUNTER 2020-04-16 12:54 | Inpatient (IN) | payer MEDICARE, OTHER, SELFPAY ==
[2019-05-18 07:06] VITALS: BMI 34.4
[2020-04-03 11:34] VITALS: BMI 33.0
[2020-04-16 12:54] VITALS: BP 120/70; PULSE 66; RESP 20; TEMP 36; O2SAT 97; BMI 32.2
--- NOTE | 2020-04-16 12:59 | EKG12_ITS ---
Test Reason : Blood Pressure : / mmHG Vent. Rate : 062 BPM Atrial Rate : 182 BPM P-R Int : 000 ms QRS Dur : 142 ms QT Int : 506 ms P-R-T Axes : 000 -89 094 degrees QTc Int : 513 ms Ventricular-paced rhythm Abnormal ECG Confirmed by QUINTON VAUGHN, SHEKHAR ([id number]), photography editor PAU CLEARY ([id number]) on 04/18/2020 7:54:23 AM Referred By: DAMIAN Confirmed By:SHEKHAR ALCANTARA MD
--- NOTE | 2020-04-16 13:13 | ED.VIS.GEN ---
History of Present Illness Chief Complaint: Shortness of Breath Informant: Patient Narrative: 74-year-old female with nonoxygen dependent COPD presents with concern for worsening shortness of breath. States that she has had symptoms for the past 21 days. Dates that she tested +10 days ago. States she has not had increased sputum production. Was concerned because she had oxygen saturation between 88 and 89% at home. Spoke with her primary care physician who was concerned and sent her in for chest x-ray. Patient denies any chest pain, nausea, vomiting, diaphoresis. Past Medical History - Allergies and Home Meds Allergies/Adverse Reactions: Allergies Penicillins Allergy (Severe, Verified 04/16/20 12:57) Hives swelling of tongue and throat codeine Adverse Reaction (Severe, Verified 04/16/20 12:57) HALLUCINATIONS morphine Adverse Reaction (Severe, Verified 04/16/20 12:57) HALLUCINATIONS Xuvtuxa-Cvg-Apz Reductase Inhibitor Adverse Reaction (Severe, Verified 04/16/20 12:57) leg cramps leg cramps blood thinners Adverse Reaction (Uncoded 04/16/20 12:57) Bleeding Primary Care Physician: Linda Gresham MD [Primary Care Provider] - Prior records reviewed: Yes Past Medical History: - - COPD, HTN Surgical History: - - Aortic and mitral valve replacement Lives: Alone Smoking Status: Former smoker Alcohol: None Drugs: None - Family History Paternal Family History: Family History (Last Reviewed 04/03/20 @ 11:29 by Bev Maria) Brother Kidney disease Father Heart disease Prostate cancer Grandmother Breast cancer Family History: Reports: Heart Disease Maternal Family History: Family History (Last Reviewed 04/03/20 @ 11:29 by Bev Maria) Brother Kidney disease Father Heart disease Prostate cancer Grandmother Breast cancer Family History: Reports: - - anemia Review of Systems General: Denies: Chills, Fever, Sweats Eyes: Denies: Visual changes - bilaterally, Diplopia ENT: Denies: Rhinorrhea, Sore throat Cardiovascular: Denies: Chest pain, Palpitations Respiratory: Reports: Dyspnea, Cough. Denies: Dyspnea on exertion Gastrointestinal: Denies: Abdominal pain, Nausea, Vomiting, Diarrhea, Melena, Hematochezia Genitourinary: Denies: Dysuria, Hematuria, Frequency Musculoskeletal: Denies: Back pain, Extremity Pain Skin: Denies: Rash, Wounds Neurological: Denies: Headache, Weakness, Numbness Physical Exam Vital Signs/Narrative: Vital Signs Temp Pulse Resp BP Pulse Ox 04/16/20 12:54 96.8 F L 66 20 H 120/70 97 Inital Vital Signs reviewed: Yes General: Well nourished, Well developed, No Acute Distress Head: Normocephalic, Atraumatic Eyes: Perrl, EOMI ENT: Moist mucous membranes, No rhinorrhea Neck: Supple, Nontender Cardiovascular: Regular rate, Regular rhythm, No murmurs Respiratory: No distress, Chest nontender, Diminished Abdomen: Soft, Nontender, Nondistended, Normal bowel sounds Back: Nontender, Normal Inspection Extremities: Nontender, No edema Skin: Normal color, No rash Neurological: Alert, Oriented x3, Cranial nerves II-XII grossly intact, Normal Strength, Normal Sensation Psychological: Normal affect, Normal Mood Diagnostic/Tx/Re-eval Clinical Impression(s) from Imaging Studies Chest X-Ray 04/16/20 14:01 IMPRESSION: Mild degree of CHF. Cardiomegaly. Electronically Signed: Nate Walker MD at 14:15 EST , Service support , Chest CTA 04/16/20 14:12 IMPRESSION: Patchy infiltrates are seen in the right upper lobe as well as the medial aspect of the right middle lobe and lateral aspect of the right lower lobe. Follow-up is recommended. Electronically Signed: Nate Walker MD at 14:38 EST , Service support , Laboratory Data 04/16/20 04/16/20 04/16/20 13:30 13:30 13:30 WBC 9.2 RBC 4.69 Hgb 13.6 Hct 42.6 MCV 90.8 MCH 29.0 MCHC 31.9 L RDW Std Deviation 55.7 H RDW Coeff of Marino 16.8 H Plt Count 353 MPV 9.9 Immature Gran % (Auto) 0.800 Neut % (Auto) 79.4 H Lymph % (Auto) 6.5 L [place] % (Auto) 11.9 H Eos % (Auto) 0.5 Baso % (Auto) 0.9 Absolute Neuts (auto) 7.3 Absolute Lymphs (auto) 0.60 L Nucleated RBC % 0 Differential Comment COMMENT D-Dimer Quant (PE/DVT) Sodium 137 Potassium 3.3 L Chloride 101 Carbon Dioxide 28.0 Anion Gap 8 BUN 21 H Creatinine 1.13 H Estim Creat Clear Calc 37.15 Est GFR (MDRD) Af Amer 60 Est GFR (MDRD) Non-Af 50 L BUN/Creatinine Ratio 18.6 Glucose 115 H Lactic Acid 2.6 H* Calcium 9.4 Total Bilirubin 1.60 H AST 18 ALT 14 Alkaline Phosphatase 127 H Troponin I < 0.015 Total Protein 8.0 Albumin 3.5 Globulin 4.5 H Albumin/Globulin Ratio 0.8 L 04/16/20 13:30 WBC RBC Hgb Hct MCV MCH MCHC RDW Std Deviation RDW Coeff of Marino Plt Count MPV Immature Gran % (Auto) Neut % (Auto) Lymph % (Auto) [place] % (Auto) Eos % (Auto) Baso % (Auto) Absolute Neuts (auto) Absolute Lymphs (auto) Nucleated RBC % Differential Comment D-Dimer Quant (PE/DVT) 1.45 H* Sodium Potassium Chloride Carbon Dioxide Anion Gap BUN Creatinine Estim Creat Clear Calc Est GFR (MDRD) Af Amer Est GFR (MDRD) Non-Af BUN/Creatinine Ratio Glucose Lactic Acid Calcium Total Bilirubin AST ALT Alkaline Phosphatase Troponin I Total Protein Albumin Globulin Albumin/Globulin Ratio - Rhythm Strip Rhythm Strip: ventircular pacemaker Rate: 62 - EKG Initial EKG Interpretation: Paced - Ventricular paced rhythm at 62 bpm. QTC of 513 ms. No evidence of acute ischemia. - Medical Decision Making Patient appears well and nontoxic. Hypoxemia requiring 2 L by nasal cannula. Chest x-ray read as mild CHF. No significant volume overload on my interpretation. CTA was done which shows more of a multifocal pneumonia consistent with her recent coronavirus. Lab work shows lactic acidosis. Patient was given a 500 mL fluid bolus. On clinical exam patient does appear somewhat dehydrated. States that she has not been eating and drinking well. Patient will be given Decadron. Given her hypoxemia she will be admitted for further treatment and evaluation. Stable at time of admission. Impression: 1. COVID 19 pneumonia 2. Hypoxemia 3. COPD 4. Lactic acidosis ED Disposition - Plan for ED Patient: Disposition: Acute Care Hospital [facility] Referrals: iLnda Gresham MD [Primary Care Provider] -
[2020-04-16 13:40] LABS: Absolute Neutrophil Count 7.3 X10^3/uL (2.0-7.7); Basophil# 0.08 X10^3/uL; Basophil% 0.9 % (0-1); Eosinophil# 0.05 X10^3/uL; Eosinophils% 0.5 % (0-5); Hematocrit 42.6 % (37-47); Hemoglobin 13.6 g/dL (12.0-15.0); Lymphocyte % 6.5 % (19-41); Mean Corp Hgb Conc 31.9 g/dL (32-36); Mean Corpuscular Volume 90.8 fL (81-99); Mean Platelet Vol. 9.9 fl (6.2-12.0); Monocyte% 11.9 % (0-10); NRBC Flagged by Analyzer 0 % (0-5); Neutrophil # 7.32 X10^3/uL (2.7-7.7); Neutrophil % 79.4 % (47-70); POSITIVE DIFFERENTIAL YES; Platelet Count 353 K/mm3 (150-450); RBC Distribution Width CV 16.8 % (11.6-14.6); RBC Distribution Width SD 55.7 fl (35.1-43.9); Red Blood Count 4.69 M/mm3 (4.2-5.4); White Blood Count 9.2 K/mm3 (4.4-11.0)
[2020-04-16 13:43] LABS: Differential Indicated SCAN CRITERIA MET
[2020-04-16 13:49] VITALS: O2SAT 93
[2020-04-16 13:55] LABS: D-Dimer Quantitative (DVT/PE) 1.45 FEU/ug/m (0.27-0.49)
[2020-04-16 14:00] LABS: BUN 21 mg/dL (7-18); Creatinine, Serum 1.13 mg/dL (0.55-1.02); EST Glomerular Filtration Rate 50 mL/min (>60); Estimated Creatinine Clearance 37.15 ml/min; Glucose 115 mg/dL (74-106)
[2020-04-16 14:01] LABS: ALB/GLOB Ratio 0.8 RATIO (0.9-2.4); AST(SGOT) 18 U/L (15-37); Alanine Aminotransfer ALT/SGPT 14 U/L (13-56); Albumin, Serum 3.5 g/dL (3.2-5.0); Alkaline Phosphatase 127 U/L (45-117); Anion Gap 8 (5-15); BUN/Creat Ratio 18.6 RATIO (10-20); Calcium,Total 9.4 mg/dL (8.5-10.1); Chloride 101 mmol/L (98-107); Est Glom Filt Rate - Afr Amer 60 mL/min (>60); Globulin 4.5 g/dL (2.2-4.2); Potassium 3.3 mmol/L (3.5-5.1); Sodium Level 137 mmol/L (136-145)
--- NOTE | 2020-04-16 14:01 | RAD_ITS ---
STUDY: X-RAY CHEST REASON FOR EXAM: Female, 74 years old. CONTINUED SOB AND LOW OXYGEN LEVELS -- PT WAS COVID POSITIVE 04/06- VERY MILD SYMPTOMS -- CURRENTLY NO SYMPTOMS OTHER THAN LOW OXYGEN LEVELS- PT HAS COPD AND EMPHYSEMA TECHNIQUE: Single AP portable view of the chest. COMPARISON: Comparison is made with prior examination dated 12/09/2019. FINDINGS: EKG electrodes are seen. There is evidence of vascular congestion and mild degree of CHF. There is no demonstrated pleural abnormality. Sternal cerclage wires and vascular clips are present from a prior sternotomy and coronary artery bypass graft procedure (CABG). Cardiomegaly. Left-sided unipolar pacemaker. Normal mediastinum and derek. Normal visualized pulmonary arteries. There is atherosclerotic calcification of the aortic arch with tortuosity. There are diffuse degenerative changes of the visualized thoracic spine. Normal visualized ribs, clavicles, and shoulders. There is no demonstrated abnormality of the visualized soft tissue structures of the upper abdomen. RAD/Chest 1 View (Portable) IMPRESSION: Mild degree of CHF. Cardiomegaly. Electronically Signed: Nate Walker MD at 14:15 EST , Service support ,
--- NOTE | 2020-04-16 14:12 | CT_ITS ---
STUDY: CTA CHEST REASON FOR EXAM: Female, 74 years old. +COVID. INCREASE SOB AND LOW O2. HX HTN,COPD RADIATION DOSAGE (If Supplied By Facility): CTDIvol = ( 18.36 ) mGy, DLP = ( 456.61 ) mGycm TECHNIQUE: The examination was performed with the intravenous administration of IV 100mL Isovue-370. Post-processing of the angiographic images was performed, with multiplanar reformation and 3D reconstruction. Individualized dose optimization techniques were used for this CT. COMPARISON: Comparison is made with prior chest radiograph done earlier today as well as prior CT scanning of the chest dated 10/24/2016. FINDINGS: Normal enhancement of the main pulmonary artery and right and left pulmonary arteries. Normal enhancement of the bilateral peripheral pulmonary arteries. There is no demonstrated pulmonary embolism. There is atherosclerotic calcification of the aortic arch with tortuosity. There is no demonstrated aortic dissection. There is cardiomegaly. Prosthetic aortic valve Normal mediastinum. Normal hilar regions. Normal visualized trachea and bronchi. Hyperinflation. Emphysematous changes more prominent in the upper lobes bilaterally. Patchy areas of airspace disease is seen in the right upper lobe suggestive of a early pneumonic infiltrate. Minimal increased markings are also seen in the medial aspect of the right middle lobe as well as in the right lower lobe. Normal pleura. Normal chest wall structures. There are degenerative changes of thoracic spine. Normal visualized upper abdomen. CT/CTA Chest W/WO Contrast IMPRESSION: Patchy infiltrates are seen in the right upper lobe as well as the medial aspect of the right middle lobe and lateral aspect of the right lower lobe. Follow-up is recommended. Electronically Signed: Nate Walker MD at 14:38 EST , Service support ,
[2020-04-16 14:14] LABS: Lactic Acid 2.6 mmol/L (0.4-1.9)
--- NOTE | 2020-04-16 16:11 | NURSING ---
MS2 COVID HYPOXEMIA PAINTSIL
[2020-04-16 16:14] VITALS: BMI 32.3
--- NOTE | 2020-04-16 16:15 | HP.PCM_ITS ---
Problem List (1) Hyperlipidemia Status: Chronic Qualifiers: Hyperlipidemia type: unspecified Qualified Code(s): E78.5 - Hyperlipidemia, unspecified (2) Hypertension Status: Chronic Qualifiers: Hypertension type: essential hypertension Qualified Code(s): I10 - Essential (primary) hypertension (3) COPD (chronic obstructive pulmonary disease) Status: Chronic Qualifiers: COPD type: unspecified COPD Qualified Code(s): J44.9 - Chronic obstructive pulmonary disease, unspecified (4) Type 2 diabetes mellitus without complications Status: Acute Qualifiers: Diabetes mellitus usp insulin use: without usp use Qualified Code(s): E11.9 - Type 2 diabetes mellitus without complications (5) History of permanent cardiac pacemaker placement Status: Chronic Comment: S/P AV node ablation 12/2014 (6) Longstanding persistent atrial fibrillation Status: Chronic (7) Secondary pulmonary arterial hypertension Status: Chronic History of Present Illness Date of Admission: 04/16/20 Chief Complaint: Hypoxia - ongoing for a couple of days The patient is a 74 year old F with past medical history of chronic combined CHF, EF 55%, pulmonary hypertension, hypertension, COPD, CELESTINO on 2 L of oxygen bled into CPAP, history of chronic iron deficiency anemia secondary to chronic GI blood loss comes in with low oxygen saturation. Patient gives a history of having symptoms from 25 of March. She started with loss of smell and taste as well as shortness of breath which was not more than her usual COPD. She had a large family gathering at [place] and one of her daughters was sick with upper respiratory illness. She never got tested. She believes she had Covid and that was where she got it from. She told her son on 04/04/20 about persistent loss of smell and taste. Her son urged her to get tested. She tested positive on 04/06/20. She however noticed that her oxygen saturation was in the low 80s the last couple of days. She called her primary care doctor who asked her to come to the emergency department. Vitals in the ED showed temperature of 96.8F, heart rate 60s, blood pressure 120/70, respiratory rate 20, SPO2 was 97% on 2 L of oxygen. WBC count was 9.2, hemoglobin 13.6, platelet count 353, D-dimer 145, sodium 137, potassium 3.3, chloride 101, bicarbonate 28, BUN 21, creatinine 1.13, which is close to his baseline. Lactic acid 2.6, total bilirubin 1.60, ALP 127. Troponin 0.015. Admitting chest x-ray shows mild degree of CHF, cardiomegaly. CT of the chest shows no acute PE, shows patchy airspace disease in the right upper lobe, medial aspect of the right middle lobe and lateral aspect of the right lower lobe. Past Medical History Past Medical History (Chronic Problems): Chronic Problems (Last Reviewed 04/03/20 @ 11:28 by Bev Maria) Hyperlipidemia (Chronic) Hypertension (Chronic) COPD (chronic obstructive pulmonary disease) (Chronic) Chronic bronchitis (Chronic) Seasonal allergies (Chronic) Dyspnea on minimal exertion (Chronic) History of permanent cardiac pacemaker placement (Chronic 01/10/15) S/P AV node ablation 12/2014 Longstanding persistent atrial fibrillation (Chronic) Non-sustained ventricular tachycardia (Chronic) 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) Non-rheumatic tricuspid valve insufficiency (Chronic) Secondary pulmonary arterial hypertension (Chronic) Essential (primary) hypertension (Chronic) GI bleed (Chronic 01/18/19) Iron deficiency anemia due to chronic blood loss (Chronic) Medical History: Medical History (Last Reviewed 04/03/20 @ 11:28 by Bev Maria) Dyspnea on minimal exertion (Chronic) R06.00 Longstanding persistent atrial fibrillation (Chronic) I48.11 Non-sustained ventricular tachycardia (Chronic) I47.2 Rheumatic aortic stenosis with insufficiency (Chronic) I06.2 Rheumatic mitral stenosis with insufficiency (Chronic) I05.2 Non-ischemic cardiomyopathy (Chronic) 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) I50.42, I38 Non-rheumatic tricuspid valve insufficiency (Chronic) I36.1 Secondary pulmonary arterial hypertension (Chronic) I27.21 Essential (primary) hypertension (Chronic) I10 GI bleed (Chronic) Onset Date: 01/18/19 K92.2 Iron deficiency anemia due to chronic blood loss (Chronic) D50.0 Vertigo R42 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 DVT of lower extremity, bilateral I82.403 GI AVM (gastrointestinal arteriovenous vascular malformation) K55.20 cauterized July 2018 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, liver and left eye Hypothyroidism E03.9 Obesity E66.9 Osteoarthritis M19.90 Rheumatic fever I00 Sleep apnea G47.30 Dyspnea on exertion (Resolved) R06.09 Thrombocytosis D47.3 Upper GI bleed K92.2 Anemia (Inactive) D64.9 Chronic diastolic (congestive) heart failure (Inactive) I50.32 Allergies Penicillins Allergy (Severe, Verified 04/16/20 12:57) Hives swelling of tongue and throat codeine Adverse Reaction (Severe, Verified 04/16/20 12:57) HALLUCINATIONS morphine Adverse Reaction (Severe, Verified 04/16/20 12:57) HALLUCINATIONS Cchaare-Gvn-Vxk Reductase Inhibitor Adverse Reaction (Severe, Verified 04/16/20 12:57) leg cramps leg cramps blood thinners Adverse Reaction (Uncoded 04/16/20 12:57) Bleeding Home Medications: Ambulatory Orders Medication Instructions Recorded albuterol sulfate 90 mcg/actuation 2 puff INHALATION Q6H PRN PRN 06/11/17 aerosol inhaler fluticasone 250 mcg-salmeterol 50 1 inh INHALATION Q12H 06/11/17 mcg/dose blistr powdr for inhalation levothyroxine 50 mcg tablet 50 mcg PO DAILY tab 06/11/17 Cholecalciferol (VIT D3) [Vitamin 1,000 unit PO DAILY 06/01/18 D3] Cetirizine HCl [Zyrtec] 10 mg PO DAILY 12/09/19 Metoprolol Succinate 50 mg PO DAILY 12/09/19 furosemide 40 mg tablet 80 mg PO DAILY tab 01/26/20 potassium chloride 20 mEq 60 meq PO .COMPLEX #120 tab 02/13/20 tablet,extended release pantoprazole 40 mg tablet,delayed 40 mg PO DAILY #30 tab 02/27/20 release Calcium Carbonate [Elemental 1,200 mg PO DAILY 03/01/20 Calcium] Ascorbic Acid/ Zinc Gummies 2 ea PO DAILY 04/16/20 Metolazone 2.5 mg PO WE 04/16/20 Surgical History: Surgical History (Last Reviewed 04/03/20 @ 11:29 by Bev Maria) History of permanent cardiac pacemaker placement (Chronic) Onset Date: 01/10/15 Z95.0 S/P AV node ablation 12/2014 History of aortic valve replacement with bioprosthetic valve (Chronic) Onset Date: 01/04/19 Z95.3 AVR w/ #23 Biocor prosthetic valve 04/26/2009; Re-Do: TAVR-PATRICIA w/ 23 mm ES S3 valve within a [address] Rudi tissue valve 01/04/2019 History of mitral valve replacement with bioprosthetic valve (Chronic) Onset Date: 04/26/09 Z95.3 MVR w/ # 31 Biocar prosthetic valve 04/26/2009 Colon polyp K63.5 08/26/2019 EGD at [facility], colon polyp was clipped (recent bleeding) History of appendectomy Z90.49 History of cataract surgery Z98.49 History of hysterectomy Z90.710 History of left heart catheterization Onset Date: 11/12/18 Z98.890 mild non obstructive CAD History of radiofrequency ablation procedure for cardiac arrhythmia Onset D ate: 01/10/15 Z98.890 AV Junction Ablation History of removal of cyst Z98.890 right breast History of tonsillectomy and adenoidectomy Z98.890 History of total abdominal hysterectomy Z90.710 Hx of cholecystectomy Z90.49 history bilateral cataract surgery tracheostomy Onset Date: 12/03/072007 Surgical History: appendectomy, cataract, cholecystectomy, hysterectomy, tonsillectomy, - - Aortic and mitral valve replacement, status post EGD on 08/26/19 with colon polyp clipping, status post tracheostomy Psychiatric History: 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 psych hx [employer]ST History: 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 [employer]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 Denies: Chills, Fever, Night Sweats, Weight Change Eyes: Denies: Blurred vision, Cataracts, Conjunctivae Inflammation, Pain, Redness, Vision Change HEENT: Denies: Difficulty Hearing, Difficulty Swallowing, Head Aches, Hearing Changes, Sinus Congestion, Sinus Drainage Cardiovascular: Denies: Chest Pain, Claudication, Orthopnea, Palpitations, Paroxysmal Noc. Dyspnea Respiratory: Reports: Cough, Shortness of Breath, Shortness of breath at rest, Shortness of breath upon exertion. Denies: Sputum production, Wheezing Gastrointestinal: Denies: Abdominal Pain, Constipation, Hematemesis, Hematochezia, Nausea, Vomiting Genitourinary: Denies: Dysuria Musculoskeletal: Denies: Joint Pain, Joint stiffness, Joint swelling, Joint Tenderness Skin: Denies: Rash, Wounds Neurological: Denies: Numbness, Tingling, Focal weakness Psychiatric: Denies: Anxiety, Depression, Homicidal Ideations, Suicidal Ideations Hematologic/ Lymphatic: Denies: Easy Bruising, Easy Bleeding VTE Information - Inpt Only VTE Present on Admission: No VTE Pharm Prophylaxis ordered?: Yes Patient Problems: Active and Suspected Problems (Last Reviewed 04/03/20 @ 11:28 by Bev Maria) Type 2 diabetes mellitus without complications (Acute) - Physical Exam Vitals/I&O's: Vital Signs Temp Pulse Resp BP Pulse Ox 96.8 F L 66 20 H 120/70 97 04/16/20 12:54 04/16/20 12:54 04/16/20 12:54 04/16/20 12:54 04/16/20 12:54 Oxygen Flow Rate (L/min) 2 Oxygen Delivery Method Nasal Cannula Weight: 85.275 kg Body Mass Index (BMI) 32.2 General: Alert, Oriented x3, Cooperative, No apparent distress, - - On 2 L of oxygen HEENT: Atraumatic, PERRLA, EOMI, Normocephalic Oral: Moist Mucosa Neck: Supple Lungs: Diminished Cardiovascular: Regular rate, Regular Rhythm, Normal S1, Normal S2, No murmurs Abdomen: Bowel Sounds Present, Soft, Non Tender, Non-Distended, No Hepato- splenomegaly Extremities: No edema Skin: No rashes Musculoskeletal: No Tenderness to Palpation of Joints or Extremities Lymphatic: No Cervical, Supraclavicular, or Inguinal Adenopathy Neurological: Cranial nerves II-XII grossly intact, Neuro grossly intact Psych/Mental Status: Normal Affect, Appropriate Laboratory Results 04/16/20 13:30: WBC 9.2, RBC 4.69, Hgb 13.6, Hct 42.6, MCV 90.8, MCH 29.0, MCHC 31.9 L, RDW Std Deviation 55.7 H, RDW Coeff of Marino 16.8 H, Plt Count 353, MPV 9.9, Immature Gran % (Auto) 0.800, Neut % (Auto) 79.4 H, Lymph % (Auto) 6.5 L, [place] % (Auto) 11.9 H, Eos % (Auto) 0.5, Baso % (Auto) 0.9, Absolute Neuts (auto) 7.3, Absolute Lymphs (auto) 0.60 L, Nucleated RBC % 0, Differential Comment COMMENT 04/16/20 13:30: Sodium 137, Potassium 3.3 L, Chloride 101, Carbon Dioxide 28.0, Anion Gap 8, BUN 21 H, Creatinine 1.13 H, Estim Creat Clear Calc 37.15, Est GFR (MDRD) Af Amer 60, Est GFR (MDRD) Non-Af 50 L, BUN/Creatinine Ratio 18.6, Glucose 115 H, Calcium 9.4, Total Bilirubin 1.60 H, AST 18, ALT 14, Alkaline Phosphatase 127 H, Troponin I < 0.015, Total Protein 8.0, Albumin 3.5, Globulin 4.5 H, Albumin/Globulin Ratio 0.8 L 04/16/20 13:30: Lactic Acid 2.6 H* 04/16/20 13:30: D-Dimer Quant (PE/DVT) 1.45 H* Current Medications Sodium Chloride () 500 mls @ 999 mls/hr IV .Q31M JAZMIN Stop: 04/16/20 16:30 Assessment/Plan All Active Problems (Last Reviewed 04/03/20 @ 11:28 by Bev Maria) Thyroid disorder (Acute) History of pneumonia (Acute) History of gallstones (Acute) Type 2 diabetes mellitus without complications (Acute) Cataracts, both eyes (Acute) Asthma (Acute) History of blood clots (Acute) Anemia (Acute) Ascites (Acute) Dyspnea on exertion (Resolved) Elevated troponin (Resolved) Epistaxis (Resolved) Iron deficiency anemia (Resolved) 1. Acute COVID-19 pneumonia with hypoxia; currently on 2L of oxygen History of having symptoms from 03/25/20; tested positive on 04/06/20 Will continue on Decadron, remdesivir. ID consult Wean off oxygen for SpO2 >92%, encourage use of incentive spirometer 2. Hypokalemia, K 3.3, replaced, recheck in a.m. 3. Elevated D-dimer, CT of the chest was negative for acute PE Patient has history of chronic GI bleeds and cannot be anticoagulated 4. Chronic combined CHF, EF 55%/pulmonary hypertension/status post mitral valve replacement, status post TAVR Not in acute CHF exacerbation Admitting BNP up was 223.2 Continue on Lasix po, metoprolol, metolazone 5. COPD, not in acute exacerbation, continue on as needed breathing treatments 6. CELESTINO on CPAP 7. Chronic iron deficiency anemia secondary to chronic GI loss, follows with oncology in the outpatient Hemoglobin appears to be stable compared to previous Continue on pantoprazole 8. DVT prophylaxis -early ambulation on account of chronic GI bleeds requiring blood transfusions 9. CODE STATUS - Full code I discussed and explained in details the various types of CODE STATUS-full code, DNR CCA, DNR CC. Patient chose full code. She has history of being intubated status post tracheostomy. She stated that she has chronic scarring from her lungs and tracheostomy because of previous difficulty extubating. She however still wants to be full code. She will like to think about it and let the treatment team know if she changes her mind. Time spent discussing CODE STATUS 18 minutes Inpatient E&M: 40431 Init Hosp L3 Procedures: 10613 Advncd Care Plan 30 Min
[2020-04-16] MEDS: dexAMETHasone 4 MG/ML Vial 6 MG IV (16:22)
[2020-04-16 16:26] VITALS: BP 100/66; PULSE 65; RESP 16; TEMP 36.5; O2SAT 96
[2020-04-16 16:52] LABS: BNP,B-Type NATRIURETIC PEPTIDE 223.2 pg/mL (0-100)
[2020-04-16 17:32] VITALS: BMI 31.2
[2020-04-16 17:38] LABS: Reflex Lactate? Y
[2020-04-16 17:39] VITALS: BP 123/75; PULSE 64; RESP 16; TEMP 36.4; O2SAT 98
[2020-04-16 18:48] LABS: Lactic Acid 1.9 mmol/L (0.4-1.9)
[2020-04-16 20:15] VITALS: RESP 18; O2SAT 96
[2020-04-16 20:29] VITALS: BP 120/69; PULSE 60; RESP 18; TEMP 36.8; O2SAT 95
[2020-04-17 03:00] VITALS: BP 114/71; PULSE 60; RESP 17; TEMP 36.6; O2SAT 94
[2020-04-17 05:24] LABS: Hematocrit 41.2 % (37-47); Mean Corp Hgb Conc 31.6 g/dL (32-36); Mean Corpuscular Hgb 28.4 pg (27.0-32.0); Mean Corpuscular Volume 90.2 fL (81-99); Platelet Count 321 K/mm3 (150-450); RBC Distribution Width CV 16.5 % (11.6-14.6); RBC Distribution Width SD 54.5 fl (35.1-43.9); Red Blood Count 4.57 M/mm3 (4.2-5.4); White Blood Count 8.1 K/mm3 (4.4-11.0)
[2020-04-17 05:43] LABS: ALB/GLOB Ratio 0.9 RATIO (0.9-2.4); AST(SGOT) 15 U/L (15-37); Alanine Aminotransfer ALT/SGPT 13 U/L (13-56); Albumin, Serum 3.2 g/dL (3.2-5.0); Alkaline Phosphatase 113 U/L (45-117); Anion Gap 6 (5-15); BUN 20 mg/dL (7-18); BUN/Creat Ratio 20.3 RATIO (10-20); Calcium,Total 9.2 mg/dL (8.5-10.1); Chloride 102 mmol/L (98-107); Creatinine, Serum 0.99 mg/dL (0.55-1.02); EST Glomerular Filtration Rate 58 mL/min (>60); Est Glom Filt Rate - Afr Amer 71 mL/min (>60); Globulin 3.6 g/dL (2.2-4.2); Glucose 155 mg/dL (74-106); Protein, Total 6.8 g/dL (6.4-8.2); Sodium Level 135 mmol/L (136-145)
[2020-04-17 10:01] VITALS: BP 110/66; PULSE 63; RESP 18; TEMP 36; O2SAT 93
[2020-04-17] MEDS: 0.9% Saline Lock 10 ML Syringe IV (10:05)
[2020-04-17] MEDS: Loratadine 10 MG Tablet PO (10:11)
[2020-04-17 10:12] VITALS: PULSE 63
[2020-04-17] MEDS: Levothyroxine 50 MCG Tablet PO (10:12)
[2020-04-17] MEDS: Pantoprazole Sodium 40 MG Tablet PO (10:12)
[2020-04-17] MEDS: Metoprolol(XL)Succ 50 MG Tablet PO (10:12)
[2020-04-17] MEDS: dexAMETHasone 4 MG Tablet 6 MG PO (10:13)
[2020-04-17] MEDS: Furosemide 40 MG Tablet 80 MG PO (10:13)
[2020-04-17 10:20] VITALS: O2SAT 90; O2SAT 93
--- NOTE | 2020-04-17 10:48 | CON.PCM_ITS ---
Problem List (1) COVID-19 Status: Acute Reason for Consult: covid Consulted by: Dr. Harvey History of Present Illness: The patient is a 74 year old F on home O2 2L at night, presented with hypoxia down to 82% at home. Sx started 03/27, has been isolating since May. Developed dry cough, mild headache, brief diarrhea, brief aches, did notice loss of taste and smell a week later, got covid tested 04/06, results (+) 04/12. Overall feeling ok but home pulse ox has been low, told to go to ED. Given dex and remdesivir, feeling better, on RA currently. Full ROS performed and neg except as noted above. - Medical History Past Medical History (Chronic Problems): Chronic Problems (Last Reviewed 04/03/20 @ 11:28 by Bev Maria) Hyperlipidemia (Chronic) Hypertension (Chronic) COPD (chronic obstructive pulmonary disease) (Chronic) Chronic bronchitis (Chronic) Seasonal allergies (Chronic) Dyspnea on minimal exertion (Chronic) History of permanent cardiac pacemaker placement (Chronic 01/10/15) S/P AV node ablation 12/2014 Longstanding persistent atrial fibrillation (Chronic) Non-sustained ventricular tachycardia (Chronic) 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) Non-rheumatic tricuspid valve insufficiency (Chronic) Secondary pulmonary arterial hypertension (Chronic) Essential (primary) hypertension (Chronic) GI bleed (Chronic 01/18/19) Iron deficiency anemia due to chronic blood loss (Chronic) Allergies/Adverse Reactions: Allergies Penicillins Allergy (Severe, Verified 04/16/20 12:57) Hives swelling of tongue and throat codeine Adverse Reaction (Severe, Verified 04/16/20 12:57) HALLUCINATIONS morphine Adverse Reaction (Severe, Verified 04/16/20 12:57) HALLUCINATIONS Mflsqdb-Ddp-Sdu Reductase Inhibitor Adverse Reaction (Severe, Verified 04/16/20 12:57) leg cramps leg cramps blood thinners Adverse Reaction (Uncoded 04/16/20 12:57) Bleeding Home Medications: Ambulatory Orders Medication Instructions Recorded albuterol sulfate 90 mcg/actuation 2 puff INHALATION Q6H PRN PRN 06/11/17 aerosol inhaler fluticasone 250 mcg-salmeterol 50 1 inh INHALATION Q12H 06/11/17 mcg/dose blistr powdr for inhalation levothyroxine 50 mcg tablet 50 mcg PO DAILY tab 06/11/17 Cholecalciferol (VIT D3) [Vitamin 1,000 unit PO DAILY 06/01/18 D3] Cetirizine HCl [Zyrtec] 10 mg PO DAILY 12/09/19 Metoprolol Succinate 50 mg PO DAILY 12/09/19 furosemide 40 mg tablet 80 mg PO DAILY tab 01/26/20 potassium chloride 20 mEq 60 meq PO .COMPLEX #120 tab 02/13/20 tablet,extended release pantoprazole 40 mg tablet,delayed 40 mg PO DAILY #30 tab 02/27/20 release Calcium Carbonate [Elemental 1,200 mg PO DAILY 03/01/20 Calcium] Ascorbic Acid/ Zinc Gummies 2 ea PO DAILY 04/16/20 Metolazone 2.5 mg PO WE 04/16/20 - Social History SMOKING STATUS:: Former smoker Vital Signs Temp Pulse Resp BP Pulse Ox 96.8 F L 63 18 110/66 93 04/17/20 10:01 04/17/20 10:12 04/17/20 10:04/17/20 10:01 04/17/20 10:20 Oxygen Flow Rate (L/min) 2 Oxygen Delivery Method Room Air Weight: 83.915 kg Body Mass Index (BMI) 31.2 Laboratory Tests Past 24 Hrs 04/16/20 04/16/20 04/16/20 13:30 13:30 13:30 WBC 9.2 RBC 4.69 Hgb 13.6 Hct 42.6 MCV 90.8 MCH 29.0 MCHC 31.9 L RDW Std Deviation 55.7 H RDW Coeff of [place] 16.8 H Plt Count 353 MPV 9.9 Immature Gran % (Auto) 0.800 Neut % (Auto) 79.4 H Lymph % (Auto) 6.5 L Brown % (Auto) 11.9 H Eos % (Auto) 0.5 Baso % (Auto) 0.9 Absolute Neuts (auto) 7.3 Absolute Lymphs (auto) 0.60 L Nucleated RBC % 0 Differential Comment COMMENT D-Dimer Quant (PE/DVT) Sodium 137 Potassium 3.3 L Chloride 101 Carbon Dioxide 28.0 Anion Gap 8 BUN 21 H Creatinine 1.13 H Estim Creat Clear Calc 37.15 Est GFR (MDRD) Af Amer 60 Est GFR (MDRD) Non-Af 50 L BUN/Creatinine Ratio 18.6 Glucose 115 H Lactic Acid 2.6 H* Calcium 9.4 Total Bilirubin 1.60 H AST 18 ALT 14 Alkaline Phosphatase 127 H Troponin I < 0.015 B-Natriuretic Peptide Total Protein 8.0 Albumin 3.5 Globulin 4.5 H Albumin/Globulin Ratio 0.8 L 04/16/20 04/16/20 04/16/20 13:30 13:30 18:04 WBC RBC Hgb Hct MCV MCH MCHC RDW Std Deviation RDW Coeff of Mar[place] Plt Count MPV Immature Gran % (Auto) Neut % (Auto) Lymph % (Auto) Brown % (Auto) Eos % (Auto) Baso % (Auto) Absolute Neuts (auto) Absolute Lymphs (auto) Nucleated RBC % Differential Comment D-Dimer Quant (PE/DVT) 1.45 H* Sodium Potassium Chloride Carbon Dioxide Anion Gap BUN Creatinine Estim Creat Clear Calc Est GFR (MDRD) Af Amer Est GFR (MDRD) Non-Af BUN/Creatinine Ratio Glucose Lactic Acid 1.9 Calcium Total Bilirubin AST ALT Alkaline Phosphatase Troponin I B-Natriuretic Peptide 223.2 H Total Protein Albumin Globulin Albumin/Globulin Ratio 04/17/20 04/17/20 05:02 05:02 WBC 8.1 RBC 4.57 Hgb 13.0 Hct 41.2 MCV 90.2 MCH 28.4 MCHC 31.6 L RDW Std Deviation 54.5 H RDW Coeff of [place] 16.5 H Plt Count 321 MPV 10.0 Immature Gran % (Auto) Neut % (Auto) Lymph % (Auto) Brown % (Auto) Eos % (Auto) Baso % (Auto) Absolute Neuts (auto) Absolute Lymphs (auto) Nucleated RBC % Differential Comment D-Dimer Quant (PE/DVT) Sodium 135 L Potassium 4.0 Chloride 102 Carbon Dioxide 27.0 Anion Gap 6 BUN 20 H Creatinine 0.99 Estim Creat Clear Calc 42.40 Est GFR (MDRD) Af Amer 71 Est GFR (MDRD) Non-Af 58 L BUN/Creatinine Ratio 20.3 H Glucose 155 H Lactic Acid Calcium 9.2 Total Bilirubin 1.10 H AST 15 ALT 13 Alkaline Phosphatase 113 Troponin I B-Natriuretic Peptide Total Protein 6.8 Albumin 3.2 Globulin 3.6 Albumin/Globulin Ratio 0.9 - Other Studies Radiology: [] reviewed Other Studies: [] Route of nutrition/ use of supplements: [] Nutritional Intake: [] IV Site: [] Carey Catheter: [] - Physical Exam General: Alert, Oriented x3, Cooperative, No apparent distress HEENT: Atraumatic, PERRLA, EOMI Neck: Supple, No Nodes Lungs: Clear to auscultation, Diminished Cardiovascular: Regular rate, Regular Rhythm Abdomen: Soft, Non Tender, Non-Distended Extremities: No edema Skin: No rashes IV Site: Peripheral Musculoskeletal: No Tenderness to Palpation of Joints or Extremities Neurological: Cranial nerves II-XII grossly intact - Assessment/Plan Antibiotics: [] Assessment/Plan: [] Active and Suspected Problems (Last Reviewed 04/03/20 @ 11:28 by Bev Maria) Type 2 diabetes mellitus without complications (Acute) covid with hypoxia - sx started 03/27. Covid (+) 04/06. Hypoxia at home, otherwise asymptomatic. Feeling better today, on RA. Will stop remdesivir due to timing of symptoms. D-dimer was 1.5. CT neg for PE. Ok for home today to complete 10 days total of dex. Reported h/o bleeding with anticoagulation, otherwise would consider low dose anticoag for 2 weeks due to elevated d-dimer. Will follow as needed, thank you
--- NOTE | 2020-04-17 12:59 | CASEMGMT ---
RN CM Assessment Intro role of CM to patient via phone to room. Pt is awake, alert and able to participate in assessment. Pt states she is independent @ home and able to care for self. No care needs identified. Pt plans to return home today. No changes since last admission with DME or living situation. Diagnosis: COVID 19 with hypoxia COVID TESTING: @ [facility] 04/06/20 PCP: Dr. Gresham Specialists: clyde Medel; Luis cardio; 2 [facility] cardiologists; jhonatan Alexandra Preferred Pharmacy: [facility] Insurance: [employer] A/B, [employer] Prescription Benefit: [employer] Living Will/HPOA: daughter, Megan Curtis, is HPOA. LNOK: Megan Curtis, daughter/HPOA; Luther Flores, son Living Arrangements: Pt states lives alone in 1 story home and states no concerns at home at this time. Pt states is independent with ADL's. Transportation: Pt states drives self and states no transportation concerns at this time. DME/HHC: Pt states has the following DME: cane, walker, w/c, grab bars, shower chair, home oxygen 1 liter at night through her Cpap. Oxygen is through [facility] and cpap thru [facility]. Pt states no need for any further DME at this time. Pt states no hx of HHC or SNF in the past. Pt dc goal: home DC PLAN: home today. Pt does not qualify for increased oxygen. No other dc concerns. Eric Rogers RN ACM
--- NOTE | 2020-04-17 14:04 | DCINST_ITS ---
- Discharge Diagnoses Current Active Problems: Current Active and Chronic Problems (Last Reviewed 04/03/20 @ 11:28 by Bev Maria) COVID-19 (Acute) Hyperlipidemia (Chronic) Hypertension (Chronic) COPD (chronic obstructive pulmonary disease) (Chronic) Type 2 diabetes mellitus without complications (Acute) History of permanent cardiac pacemaker placement (Chronic 01/10/15) S/P AV node ablation 12/2014 Longstanding persistent atrial fibrillation (Chronic) Secondary pulmonary arterial hypertension (Chronic) You will use the following diet at home:: No restrictions Discharge Activity: Return to Normal Activity Allergies/Adverse Reactions: Allergies Penicillins Allergy (Severe, Verified 04/16/20 12:57) Hives swelling of tongue and throat codeine Adverse Reaction (Severe, Verified 04/16/20 12:57) HALLUCINATIONS morphine Adverse Reaction (Severe, Verified 04/16/20 12:57) HALLUCINATIONS Deynfxt-Fwe-Vuz Reductase Inhibitor Adverse Reaction (Severe, Verified 04/16/20 12:57) leg cramps leg cramps blood thinners Adverse Reaction (Uncoded 04/16/20 12:57) Bleeding Medications to take at Discharge albuterol sulfate 90 mcg/actuation aerosol inhaler 2 puff INHALATION Q6H PRN PRN 06/11/17 fluticasone 250 mcg-salmeterol 50 mcg/dose blistr powdr for inhalation 1 inh INHALATION Q12H 06/11/17 levothyroxine 50 mcg tablet 50 mcg PO DAILY tab 06/11/17 Cholecalciferol (VIT D3) [Vitamin D3] 1,000 unit PO DAILY 06/01/18 Cetirizine HCl [Zyrtec] 10 mg PO DAILY 12/09/19 Metoprolol Succinate 50 mg PO DAILY 12/09/19 furosemide 40 mg tablet 80 mg PO DAILY tab 01/26/20 potassium chloride 20 mEq tablet,extended release 60 meq PO .COMPLEX #120 tab 02/13/20 pantoprazole 40 mg tablet,delayed release 40 mg PO DAILY #30 tab 02/27/20 Calcium Carbonate [Calcium] 1,200 mg PO DAILY 03/01/20 Ascorbic Acid/ Zinc Gummies 2 ea PO DAILY 04/16/20 Metolazone 2.5 mg PO WE 04/16/20 Dexamethasone 6 mg PO DAILY #8 tab 04/17/20 The following prescriptions were given: Dexamethasone 6 mg PO DAILY #8 tab Transmission Status: Pending to [facility] Primary Care Physician: Linda Gresham MD [Primary Care Provider] - Within 2 Weeks Test Results: Test results from this visit will be discussed in further detail at your follow- up appointment, if applicable. Proposed Discharge Date: 04/17/20
--- NOTE | 2020-04-17 14:06 | PCM.DC.SUM ---
Discharge Date and Diagnosis - Problem List Patient Problems: Active and Suspected Problems (Last Reviewed 04/03/20 @ 11:28 by Bev Maria) COVID-19 (Acute) Type 2 diabetes mellitus without complications (Acute) Date of Admission: 04/16/20 Date of Discharge: 04/17/20 - Primary Discharge Diagnosis Acute Problems: Active Problems (Last Reviewed 04/03/20 @ 11:28 by Bev Maria) COVID-19 (Acute) Type 2 diabetes mellitus without complications (Acute) - Secondary Discharge Diagnosis Chronic Problems: Chronic Problems (Last Reviewed 04/03/20 @ 11:28 by Bev Maria) Hyperlipidemia (Chronic) Hypertension (Chronic) COPD (chronic obstructive pulmonary disease) (Chronic) Chronic bronchitis (Chronic) Seasonal allergies (Chronic) Dyspnea on minimal exertion (Chronic) History of permanent cardiac pacemaker placement (Chronic 01/10/15) S/P AV node ablation 12/2014 Longstanding persistent atrial fibrillation (Chronic) Non-sustained ventricular tachycardia (Chronic) 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 Cardiomegaly. Electronically Signed: Nate Walker MD at 14:15 EST , Service support , Chest CTA 04/16/20 14:12 IMPRESSION: Patchy infiltrates are seen in the right upper lobe as well as the medial aspect of the right middle lobe and lateral aspect of the right lower lobe. Follow-up is recommended. Electronically Signed: Nate Walker MD at 14:38 EST , Service support , [facility] Operations: None Procedures: None Summary of Care Provided: The patient is a 74 year old F patient became ill on March 25. Patient had initially started off with a loss of smell and taste and then shortness of breath but not any more than her typical COPD. Patient had been around family showed around María time but also had been out to some stores. Patient was eventually tested for COVID-19 and came back positive on April 06. Patient was checking her oxygen was noted to be in the low 80s so she presented to the hospital. Patient was treated with dexamethasone as well as a remdesivir. Patient had a CAT scan that did show patchy infiltrates in the right upper lobe. Patient was evaluated today and was doing well on room air. Patient does have oxygen at home. Patient was seen by infectious disease who recommend discontinuing the 10-day course of dexamethasone but no remdesivir. Given the timing of her symptoms, patient has completed quarantine for COVID-19. Patient still advised to wear a mask when out in public. Patient will be discharged home in stable condition. [] Patient Problems: Active and Suspected Problems (Last Reviewed 04/03/20 @ 11:28 by Bev Maria) COVID-19 (Acute) Type 2 diabetes mellitus without complications (Acute) - Physical Exam Vitals/I&O's: Vital Signs Temp Pulse Resp BP Pulse Ox 36.0 C L 63 18 110/66 93 04/17/20 10:04/17/20 10:12 04/17/20 10:04/17/20 10:04/17/20 10:20 Oxygen Flow Rate (L/min) 2 Oxygen Delivery Method Room Air Weight: 83.915 kg Body Mass Index (BMI) 31.2 Intake and Output for Last 24 Hours 04/15/20 04/16/20 04/17/20 23:59 23:59 23:59 Intake Total 1000 / 1000 450 / 450 Balance 1000 / 1000 450 / 450 General: Alert, Cooperative, No apparent distress HEENT: Atraumatic, Normocephalic Oral: Moist Mucosa, No Gingival or Mucosal Lesions/ Ulcerations Neck: No Nodes, Thyroid Normal Size and Texture Lungs: Clear to auscultation, Normal air movement, No rhonchi, No wheeze Cardiovascular: Regular rate, Regular Rhythm, Normal S1, Normal S2, No murmurs Abdomen: Bowel Sounds Present, Soft, Non Tender, Non-Distended, No Hepato-splenomegaly Extremities: No edema, No Calf Tenderness Skin: No rashes, No breakdown Laboratory Results 04/16/20 13:30: Differential Comment COMMENT 04/16/20 13:30: Lactic Acid 2.6 H* 04/16/20 13:30: B-Natriuretic Peptide 223.2 H 04/16/20 18:04: Lactic Acid 1.9 04/17/20 05:02: WBC 8.1, RBC 4.57, Hgb 13.0, Hct 41.2, MCV 90.2, MCH 28.4, MCHC 31.6 L, RDW Std Deviation 54.5 H, RDW Coeff of Marino 16.5 H, Plt Count 321, MPV 10.0 04/17/20 05:02: Sodium 135 L, Potassium 4.0, Chloride 102, Carbon Dioxide 27.0, Anion Gap 6, BUN 20 H, Creatinine 0.99, Estim Creat Clear Calc 42.40, Est GFR (MDRD) Af Amer 71, Est GFR (MDRD) Non-Af 58 L, BUN/Creatinine Ratio 20.3 H, Glucose 155 H, Calcium 9.2, Total Bilirubin 1.10 H, AST 15, ALT 13, Alkaline Phosphatase 113, Total Protein 6.8, Albumin 3.2, Globulin 3.6, Albumin/Globulin Ratio 0.9 Current Medications Acetaminophen (Acetaminophen 325 Mg Tablet) 650 mg PO Q6H PRN PRN PRN Reason: Pain Score 1-10/Temp > 100.7 F Albuterol Sulfate (Albuterol Sulfate 8 Gm Inhaler (60 Puffs)) 2 puff INHALATION Q6H PRN PRN PRN Reason: SOB &/OR WHEEZING Cholecalciferol (Cholecalciferol (Vit D3) 1,000 Unit (25mcg)) 1,000 unit PO DAILYCM JAZMIN Last Admin: 04/17/20 10:13 Dose: 1,000 unit Documented by: Dex[facility] ([facility] 4 Mg [facility]) [facility] Admin: 04/17/20 10:13 Dose: 6 mg Documented by: Furosemide (Furosemide 40 Mg Tablet) 80 mg PO DAILY [facility] Last Admin: 04/17/20 10:13 Dose: 80 mg Documented by: Sodium Chloride () 250 mls @ 15 mls/hr IV .[id number] PRN PRN Reason: Saline Flush Levothyroxine Sodium (Levothyroxine 50 Mcg Tablet) 50 mcg PO DAILY@0800 [facility] Last Admin: 04/17/20 10:12 Dose: 50 mcg Documented by: Loratadine (Loratadine 10 Mg Tablet) 10 mg PO DAILY@0800 [facility] Last Admin: 04/17/20 10:11 Dose: 10 mg Documented by: Metolazone (Metolazone 2.5 Mg Tablet) 2.5 mg PO We@0800 [facility] Metoprolol Succinate (Metoprolol(Xl)Succ 50 Mg Tablet) 50 mg PO DAILY@0800 [facility] Last Admin: 04/17/20 10:12 Dose: 50 mg Documented by: Ondansetron HCl (Ondansetron 4 Mg/2 Ml Vial) 4 mg IV Q8H PRN PRN PRN Reason: NAUSEA/VOMITING Pantoprazole Sodium (Pantoprazole Sodium 40 Mg Tablet) 40 mg PO DAILY@0800 [facility] Last Admin: 04/17/20 10:12 Dose: 40 mg Documented by: Potassium Chloride (Potassium Chloride 20 Meq Tablet) [facility] Last Admin: 04/17/20 10:12 Dose: 60 meq Documented by: Potassium Chloride (Potassium Chloride 20 Meq Tablet) 60 meq PO SUPPER [facility] Fluticasone/Salmeterol (Fluticasone/Salmeterol 232-14 Inhaler) 1 puff IH 0800,1700 [facility] Senna/Docusate Sodium (Senna/Docusate Sodium 1 Tablet) 2 tablet PO BID PRN PRN PRN Reason: Constipation Sodium Chloride (0.9% Saline Lock 10 Ml Syringe) 10 - 40 ml IV UD PRN PRN Reason: SALINE FLUSH Discharge Diet: No Restrictions Discharge Activity: Return to Normal Activity Home Medications: Medications to take at Discharge albuterol sulfate 90 mcg/actuation aerosol inhaler 2 puff INHALATION Q6H PRN PRN 06/11/17 fluticasone 250 mcg-salmeterol 50 mcg/dose blistr powdr for inhalation 1 inh INHALATION Q12H 06/11/17 levothyroxine 50 mcg tablet 50 mcg PO DAILY tab 06/11/17 Cholecalciferol (VIT D3) [Vitamin D3] 1,000 unit PO DAILY 06/01/18 Cetirizine HCl [Zyrtec] 10 mg PO DAILY 12/09/19 Metoprolol Succinate 50 mg PO DAILY 12/09/19 furosemide 40 mg tablet 80 mg PO DAILY tab 01/26/20 potassium chloride 20 mEq tablet,extended release 60 meq PO .COMPLEX #120 tab 02/13/20 pantoprazole 40 mg tablet,delayed release 40 mg PO DAILY #30 tab 02/27/20 Calcium Carbonate [Calcium] 1,200 mg PO DAILY 03/01/20 Ascorbic Acid/ Zinc Gummies 2 ea PO DAILY 04/16/20 Metolazone 2.5 mg PO WE 04/16/20 Dexamethasone 6 mg PO DAILY #8 tab 04/17/20 Following Prescriptions Were Given to Patient: Dexamethasone 6 mg PO DAILY #8 tab Transmission Status: Pending to [facility] Primary Care Physician: Lnida Gresham MD [Primary Care Provider] - Within 2 Weeks Disposition: Home Minutes spent on discharge:: 28 Patient Condition:: Good Medical Necessity - Tobacco Use Smoking Status: Former smoker Tobacco Use: Cigarettes Meaningful Use Info Meaningful Use Diagnoses (Choose all that apply): None applicable OBSV E&M: 29358 Observation care discharge
[2020-04-17 15:58] VITALS: BP 119/72; PULSE 72; RESP 18; O2SAT 95
== END 2020-04-17 16:44 | disposition home or self-care (01) | DRG 177 ==
LOC: ED 16:13 → MS2 16:23
PROVIDERS: Admitting Provider Internal Medicine; Emergency Provider Emergency Medicine; PCP Internal Medicine
DX: U07.1 COVID-19 (principal); J12.82 Pneumonia due to coronavirus disease 2019; I48.11 Longstanding persistent atrial fibrillation; I50.42 Chronic combined systolic (congestive) and diastolic (congestive) heart failure; J44.0 Chronic obstructive pulmonary disease with (acute) lower respiratory infection; I42.8 Other cardiomyopathies; E87.2 Acidosis; E11.9 Type 2 diabetes mellitus without complications; I27.21 Secondary pulmonary arterial hypertension; E78.5 Hyperlipidemia, unspecified; J44.9 Chronic obstructive pulmonary disease, unspecified; Z79.890 Hormone replacement therapy; Z80.3 Family history of malignant neoplasm of breast; Z86.718 Personal history of other venous thrombosis and embolism; Z87.01 Personal history of pneumonia (recurrent); Z87.19 Personal history of other diseases of the digestive system; Z90.49 Acquired absence of other specified parts of digestive tract; Z90.710 Acquired absence of both cervix and uterus; Z95.0 Presence of cardiac pacemaker; Z95.3 Presence of xenogenic heart valve; G47.33 Obstructive sleep apnea (adult) (pediatric); I11.0 Hypertensive heart disease with heart failure; D50.0 Iron deficiency anemia secondary to blood loss (chronic); R09.02 Hypoxemia; E87.6 Hypokalemia; I08.0 Rheumatic disorders of both mitral and aortic valves; J30.2 Other seasonal allergic rhinitis; Z66 Do not resuscitate; Z93.0 Tracheostomy status
CPT/HCPCS: 36415; 71045; 71275; 80053; 83605; 83880; 84484; 85025; 85027; 85379; 93005; 97802; 99251; 99285; J7030; J7050; Q9967; A4216; G0463

== ENCOUNTER → 2020-04-30 11:19 | Outpatient (CLI) | payer MEDICARE, OTHER, SELFPAY ==
[2019-05-18 07:06] VITALS: BMI 34.4
[2020-04-26 16:21] VITALS: BMI 31.9
[2020-04-30 15:20] LABS: Absolute Lymphocyte Count 0.69 X10^3/uL (0.83-4.51); Absolute Neutrophil Count 14.4 X10^3/uL (2.0-7.7); Basophil# 0.06 X10^3/uL; Basophil% 0.3 % (0-1); Eosinophil# 0.15 X10^3/uL; Eosinophils% 0.9 % (0-5); Hemoglobin 14.6 g/dL (12.0-15.0); Lymphocyte # 0.69 X10^3/ul (4.0); Lymphocyte % 3.9 % (19-41); Mean Corp Hgb Conc 31.1 g/dL (32-36); Mean Corpuscular Hgb 28.3 pg (27.0-32.0); Mean Corpuscular Volume 91.1 fL (81-99); Mean Platelet Vol. 10.4 fl (6.2-12.0); Monocyte# 1.85 X10^3/uL; Monocyte% 10.5 % (0-10); NRBC Flagged by Analyzer 0 % (0-5); Neutrophil # 14.37 X10^3/uL (2.7-7.7); Neutrophil % 81.9 % (47-70); POSITIVE DIFFERENTIAL YES; Platelet Count 239 K/mm3 (150-450); RBC Distribution Width CV 16.9 % (11.6-14.6); RBC Distribution Width SD 56.4 fl (35.1-43.9); Red Blood Count 5.16 M/mm3 (4.2-5.4); White Blood Count 17.6 K/mm3 (4.4-11.0)
[2020-04-30 15:24] LABS: Differential Indicated SCAN CRITERIA MET
[2020-04-30 15:35] LABS: Anion Gap 8 (5-15); BUN 22 mg/dL (7-18); BUN/Creat Ratio 22.3 RATIO (10-20); Calcium,Total 10.1 mg/dL (8.5-10.1); Chloride 94 mmol/L (98-107); Creatinine, Serum 0.99 mg/dL (0.55-1.02); EST Glomerular Filtration Rate 58 mL/min (>60); Est Glom Filt Rate - Afr Amer 71 mL/min (>60); Glucose 128 mg/dL (74-106); Potassium 2.8 mmol/L (3.5-5.1); Sodium Level 134 mmol/L (136-145)
[2020-04-30 15:38] LABS: Ferritin 165 ng/mL (8-252); Iron 81 ug/dL (50-170); Iron Binding Capacity,Total 373 ug/dL (250-450); PERCENT IRON SATURATION 21.7 % (15.0-55.0)
[2020-04-30 16:03] LABS: Differential Comment SCANNED
[2020-05-01 13:25] LABS: Pathologist Review Reviewed
[2020-05-02 11:53] LABS: Uric Acid 8.9 mg/dL (2.6-6.0)
== END ==
PROVIDERS: Internal Medicine Hematology & Oncology; Nurse Practitioner Family; PCP Internal Medicine; Referring Provider Nurse Practitioner Family; Visit Provider Nurse Practitioner Family
DX: E87.6 Hypokalemia (principal); I42.8 Other cardiomyopathies; I10 Essential (primary) hypertension; M10.9 Gout, unspecified; D50.0 Iron deficiency anemia secondary to blood loss (chronic)
CPT/HCPCS: 36415; 80048; 82728; 83540; 83550; 84550; 85025

== ENCOUNTER → 2020-05-04 10:11 | Outpatient (CLI) | payer MEDICARE, OTHER, SELFPAY ==
[2019-05-18 07:06] VITALS: BMI 34.4
--- NOTE | 2020-05-04 10:22 | RAD_ITS ---
STUDY: X-RAY CHEST REASON FOR EXAM: Female, 74 years old. WORSENING DYSPNEA, COUGH -- PT HAD COVID -- HX OF CHF, COPD, EMPHYSEMA TECHNIQUE: PA and lateral views of the chest. COMPARISON: Comparison is made with prior study dated 04/16/2020. FINDINGS: There is evidence of vascular congestion and interstitial CHF. There is no demonstrated pleural abnormality. Sternal cerclage wires and vascular clips are present from a prior sternotomy and coronary artery bypass graft procedure (CABG). Prior aortic valve replacement. Moderate cardiomegaly. A left-sided unipolar pacemaker is seen. Normal mediastinum and derek. Normal visualized pulmonary arteries. There is atherosclerotic calcification of the aortic arch with tortuosity. There are diffuse degenerative changes of the visualized thoracic spine. Normal visualized ribs, clavicles, and shoulders. There is no demonstrated abnormality of the visualized soft tissue structures of the upper abdomen. RAD/Chest PA and Lateral IMPRESSION: Cardia megaly and CHF. Prior aortic valve replacement. Electronically Signed: Nate Walker MD at 12:53 EST , Service support ,
== END ==
PROVIDERS: PCP Internal Medicine; Referring Provider Nurse Practitioner Family; Visit Provider Nurse Practitioner Family
DX: R05 Cough (principal)
CPT/HCPCS: 71046

== ENCOUNTER 2020-05-15 16:00 | Inpatient (IN) | payer MEDICARE, OTHER, SELFPAY ==
[2019-05-18 07:06] VITALS: BMI 34.4
[2020-05-15] VITALS (21 sets, daily range): BP systolic 101–140; BP diastolic 62–97; PULSE 60–611; RESP 12–27; TEMP 35.6–37.4; O2SAT 80–100; BMI 33.1; BMI 32.1
--- NOTE | 2020-05-15 16:17 | ED.RN ---
SKIN TEAR TO LT HAND, RT LOWER LEG. DRY BLOOD IN MOUTH.
--- NOTE | 2020-05-15 16:19 | CT_ITS ---
STUDY: CT BRAIN WITHOUT CONTRAST REASON FOR EXAM: Female, 74 years old. Found on the floor at 1500. Slurred speech and weakness. RADIATION DOSAGE (If Supplied By Facility): CTDIvol = ( 44.99 ) mGy, DLP = ( 779.24 ) mGycm TECHNIQUE: Transaxial CT imaging of the brain was performed without administration of intravenous contrast material. Individualized dose optimization techniques were used for this CT. COMPARISON: No relevant priors. FINDINGS: Normal soft tissue structures. Normal calvarium. Normal size ventricles and extra-axial spaces for the patient''s age. There is an ill-defined area increased density in the white matter of the right posterior parietal lobe measuring approximately 1.3 x 1.7 x 1.2 cm. There are several calcifications along its inferior margin. The largest measures 4 mm in diameter. There are areas of decreased attenuation within the white matter tracts of the supratentorial brain, consistent with microvascular disease changes. Normal basal ganglia and thalami. Normal brainstem. Normal cerebellum. There is no intracranial hemorrhage. There are no findings of an acute ischemic infarction. Normal visualized paranasal sinuses. CT/Brain/Head without Contrast IMPRESSION: 1. No evidence of acute intracranial or calvarial abnormality. 2. Ill-defined area of hypodensity with associated calcifications in the white matter of the right posterior parietal lobe. No evidence of mass effect or edema. Question slow growing mass. MRI is recommended. N.B. : The above information has been verbally conveyed by Wojciech Hassan DO to Brett Tejeda MD, on 05/15/2020 16:50:03 (ET). Electronically Signed: Wojciech Hassan DO at 16:51 EST Tel [phone], Service support ,
--- NOTE | 2020-05-15 16:20 | EKG12_ITS ---
Test Reason : ALTERED LOC Blood Pressure : / mmHG Vent. Rate : 061 BPM Atrial Rate : 080 BPM P-R Int : 000 ms QRS Dur : 120 ms QT Int : 458 ms P-R-T Axes : 000 -87 100 degrees QTc Int : 461 ms Ventricular-paced rhythm Abnormal ECG Confirmed by QUINTON VAUGHN, SHEKHAR ([id number]), news assignment editor MARU KAUR ([id number]) on 05/17/2020 1:48:31 PM Referred By: CYNDY Confirmed By:SHEHKAR ALCANTARA MD
[2020-05-15 16:21] LABS: Bedside Glucose 136 mg/dL (70-110)
--- NOTE | 2020-05-15 16:21 | CT_ITS ---
STUDY: CT FACIAL BONES WITHOUT CONTRAST REASON FOR EXAM: Female, 74 years old. Found on the floor at 1500. Slurred speech and weakness. RADIATION DOSAGE (If Supplied By Facility): CTDIvol = ( 29.38 ) mGy, DLP = ( 576.84 ) mGycm TECHNIQUE: The patient was scanned in a multi detector CT scanner. Sagittal and coronal images were reconstructed. Individualized dose optimization techniques were used for this CT. COMPARISON: None. FINDINGS: Normal soft tissue structures. Normal orbital godoy and orbital contents. Normal nasal bones and anterior nasal spine. Normal facial bones. There is no demonstrated fracture. Normal visualized paranasal sinuses. CT/Sinus/Facial Bone IMPRESSION: No evidence of facial bone fracture. Electronically Signed: Wojciech Hassan DO at 16:52 EST Tel [phone], Service support ,
--- NOTE | 2020-05-15 16:21 | CT_ITS ---
STUDY: CT CERVICAL SPINE WITHOUT CONTRAST REASON FOR EXAM: Female, 74 years old. Found on floor at 1500. Slurred speech and weakness. RADIATION DOSAGE (If Supplied By Facility): CTDIvol = ( 24.54 ) mGy, DLP = ( 534.69 ) mGycm TECHNIQUE: High resolution transaxial imaging was performed without contrast material. Sagittal and coronal images were reconstructed. Individualized dose optimization techniques were used for this CT. COMPARISON: None FINDINGS: Normal craniovertebral junction. There are mild degenerative changes of the anterior atlantoaxial articulation. Normal odontoid process. There is straightening of the normal cervical lordosis. Normal vertebral bodies and posterior osseous elements. C2-3: Normal endplates. Normal disc height and morphology. Facet joint degenerative change. Normal central canal and intervertebral neuroforamina. C3-4: Normal endplates. Mild loss of disc height. Facet and uncovertebral joint degenerative change. Normal central canal. Narrowing of the right intervertebral neuroforamen. C4-5: Minimal endplate spondylosis. Loss of disc height. Facet and uncovertebral joint degenerative change. Stenosis of the central canal and narrowing of the bilateral intervertebral neuroforamina. C5-6: Normal endplates. Mild loss of disc height. Facet uncovertebral joint degenerative change. Normal central canal and intervertebral neuroforamina. C6-7: Mild endplate spondylosis. Loss of disc height. Facet and uncovertebral joint degenerative change.. Calcinosis of central canal and narrowing of the right intervertebral neuroforamen. C7-T1: Normal endplates. Normal disc height and morphology. Normal central canal and intervertebral neuroforamina. Fibrotic changes of the lung apices. CT/Spine Cervical without Contras IMPRESSION: Degenerative changes of the cervical spine. There is no acute fracture or subluxation. Electronically Signed: Wojciech Hassan DO at 16:57 EST Tel [phone], Service support ,
[2020-05-15 16:38] LABS: Mucous, Urine 0 SEEN /hpf (<or=2+); Red Blood Cells-Urine 0 SEEN /hpf (0-5); Squamous Epithelial Cells - UA 0 SEEN /hpf (5-10); White Blood Cells 0 SEEN /hpf (0-5)
[2020-05-15] MEDS: 0.9% Normal Saline 1,000 ML 1000 ML IV (16:40)
[2020-05-15 16:41] LABS: Absolute Lymphocyte Count 0.74 X10^3/uL (0.83-4.51); Absolute Neutrophil Count 15.4 X10^3/uL (2.0-7.7); Basophil# 0.11 X10^3/uL; Basophil% 0.6 % (0-1); Eosinophil# 0.01 X10^3/uL; Eosinophils% 0.1 % (0-5); Hematocrit 49.8 % (37-47); Hemoglobin 15.9 g/dL (12.0-15.0); Lymphocyte # 0.74 X10^3/ul (4.0); Lymphocyte % 3.9 % (19-41); Mean Corp Hgb Conc 31.9 g/dL (32-36); Mean Corpuscular Hgb 29.3 pg (27.0-32.0); Mean Corpuscular Volume 91.9 fL (81-99); Mean Platelet Vol. 9.8 fl (6.2-12.0); Monocyte% 11.7 % (0-10); NRBC Flagged by Analyzer 0.2 % (0-5); Neutrophil # 15.35 X10^3/uL (2.7-7.7); Neutrophil % 81.9 % (47-70); POSITIVE DIFFERENTIAL YES; Platelet Count 487 K/mm3 (150-450); RBC Distribution Width CV 18.9 % (11.6-14.6); RBC Distribution Width SD 59.8 fl (35.1-43.9); Red Blood Count 5.42 M/mm3 (4.2-5.4); White Blood Count 18.8 K/mm3 (4.4-11.0)
[2020-05-15 16:45] LABS: Color, Urine Yellow (Yellow); Glucose, Dipstick Normal (Normal); Ketone-Dipstick Negative (Negative); Leukocyte Esterase-Dipstick 25 /ul (Negative); Nitrite-Dipstick Negative (Negative); Occult Blood-Urine Negative /ul (Negative); Protein-Dipstick 30 mg/dl (Negative); Urine Bilirubin Dipstick Negative (Negative); Urine Clarity Clear (Clear); Urine Urobilinogen 1 mg/dl (Normal)
[2020-05-15 16:47] LABS: International Normalized Ratio 1.3; Partial Thromboplast Time 24.1 Seconds (24.1-36.2); Prothrombin Time (Protime)PT. 15.7 SECONDS (11.7-14.9)
--- NOTE | 2020-05-15 16:52 | ED.RN ---
PER DR. NAYLOR FLUID WARMER BEING USED FOR FLUIDS.
[2020-05-15 16:53] LABS: Bacteria 1+ /hpf (None Seen); Hyaline Cast 0-5 SEEN /lpf (0-5)
--- NOTE | 2020-05-15 16:54 | RAD_ITS ---
STUDY: X-RAY - PELVIS REASON FOR EXAM: Female, 74 years old. Slurred speech. Weakness. Found on floor. TECHNIQUE: One view of the pelvis was obtained. COMPARISON: CT of the abdomen and pelvis, 06/03/2018. FINDINGS: There is a non-specific bowel gas pattern. Normal visualized soft tissue structures. There appears to be a TREADWELL catheter in the urinary bladder. There are degenerative changes of the lower lumbar spine. Normal bilateral iliac wings, sacroiliac joints and visualized sacrum. Normal visualized bilateral superior and inferior pubic rami. Normal pubic symphysis. Normal ischial tuberosities. Normal visualized right femoral head. There is osteoarthritic spur formation of the right acetabular rim. There is moderate articular joint space narrowing of the right hip. Normal visualized left femoral head. Normal left acetabulum. There is moderate articular joint space narrowing of the left hip. RAD/Pelvis 1 or 2 Views IMPRESSION: Degenerative changes in lumbar spine and bilateral hips. There is no acute fracture or dislocation. Electronically Signed: Wojciech Hassan DO at 17:14 EST Tel [phone], Service support ,
--- NOTE | 2020-05-15 16:54 | RAD_ITS ---
STUDY: X-RAY CHEST REASON FOR EXAM: Female, 74 years old. Slurred speech. Bilateral weakness. Appears to not be able to see. Found on the floor. TECHNIQUE: Single AP portable view of the chest. COMPARISON: 05/04/2020. FINDINGS: There is a slightly decreased inspiratory effort. There is diffuse interstitial changes throughout both lungs increased in the upper lobes when compared to the prior study. There is no demonstrated pleural abnormality. The heart is moderate to markedly enlarged. There is stable cardiac pacemaker and evidence of prior median sternotomy and aortic valve replacement. Normal mediastinum and derek. Bilateral hilar vascular prominence. Normal visualized aortic arch and descending thoracic aorta. The thoracic spine is obscured by the mediastinum. Normal visualized ribs, clavicles, and shoulders. There is no demonstrated abnormality of the visualized soft tissue structures of the upper abdomen. RAD/Chest 1 View IMPRESSION: Findings suggestive of cardiomegaly with worsening CHF when compared to prior study. Electronically Signed: Wojciech Hassan DO at 17:13 EST Tel [phone], Service support ,
[2020-05-15 16:58] LABS: ALB/GLOB Ratio 0.9 RATIO (0.9-2.4); AST(SGOT) 24 U/L (15-37); Alanine Aminotransfer ALT/SGPT 24 U/L (13-56); Albumin, Serum 3.7 g/dL (3.2-5.0); Alkaline Phosphatase 141 U/L (45-117); Anion Gap 9 (5-15); BUN 31 mg/dL (7-18); BUN/Creat Ratio 25.2 RATIO (10-20); Calcium,Total 10.4 mg/dL (8.5-10.1); Chloride 99 mmol/L (98-107); Creatinine, Serum 1.23 mg/dL (0.55-1.02); EST Glomerular Filtration Rate 45 mL/min (>60); Est Glom Filt Rate - Afr Amer 55 mL/min (>60); Estimated Creatinine Clearance 35.56 ml/min; Globulin 4.1 g/dL (2.2-4.2); Glucose 154 mg/dL (74-106); Lipase 166 U/L (73-393); Potassium 3.7 mmol/L (3.5-5.1); Protein, Total 7.8 g/dL (6.4-8.2); Sodium Level 137 mmol/L (136-145)
[2020-05-15 17:01] LABS: CPK Total, Creatine Kinase 57 U/L (26-192)
--- NOTE | 2020-05-15 17:01 | ED.RN ---
PT MOVES ALL EXTREMITIES BUT DOES NOT FOLLOW COMMANDS AND HOLD AGAINST GRAVITY. PT WILL LOOK TO THE LEFT, BUT CAN NOT SAY WHAT SHE SEE. PT WILL BRIEFLY LOOK TO THE RIGHT BUT DOES NOT FOLLOW APPEAR TO SEE ANYTHING.
[2020-05-15 17:05] LABS: Allen Test Positive; Base Excess 1 mmol/L (-2 to +2); Blood Gas Specimen Type ART; O2 Delivery Device Cannula; PO2 52 mmHG (75-100); SITE L Radial; SO2 89 % (95-99); Total Carbon Dioxide 26 mmol/L; pCO2 35.7 mmHg (35-45); pH 7.45 (7.35-7.45)
--- NOTE | 2020-05-15 17:06 | ED.RN ---
AIDA MCGUIRE AT BEDSIDE CLEANING PT WOUND.
[2020-05-15 17:11] LABS: Differential Indicated SCAN CRITERIA MET
[2020-05-15] MEDS: 0.9% Normal Saline 1,000 ML 150 ML IV (17:21)
[2020-05-15 17:22] LABS: Anisocytosis RARE; Macrocytosis RARE; Platelet Estimate SLT INC (ADEQ); Red Cell Morphology N CHROM NORMAL (NORM C&C)
--- NOTE | 2020-05-15 17:22 | RAD_ITS ---
STUDY: X-RAY - RIGHT HAND REASON FOR EXAM: Female, 74 years old. Altered mental status. Fall. Pain in the forearm. TECHNIQUE: 3 view(s) of the hand. COMPARISON: Right forearm, 05/15/2020. FINDINGS: There is joint space narrowing of the radiocarpal articulation consistent with degenerative arthrosis. Normal distal radioulnar joint. Normal visualized carpal bones. Normal carpal articulations Normal carpometacarpal articulation of the thumb. Normal second through fifth carpometacarpal joints. Normal metacarpi. Normal metacarpophalangeal joint of the thumb. There is degenerative arthrosis of the interphalangeal joint of the thumb with articular joint space narrowing. Normal proximal and distal phalanges of the thumb. Normal metacarpophalangeal joints of the second through fifth fingers. There is diffuse articular joint space narrowing of the proximal and distal interphalangeal joints of the second through fifth fingers, but without erosive changes or periarticular soft tissue swelling. Normal phalanges of the second through fifth fingers. The soft tissue structures are unremarkable. RAD/Hand Min 3 Views IMPRESSION: Degenerative joint disease of the hand and wrist, as described above. No acute fracture or dislocation. Electronically Signed: Wojciech Hassan DO at 18:43 EST Tel [phone], Service support ,
--- NOTE | 2020-05-15 17:22 | CT_ITS ---
STUDY: CTA CHEST REASON FOR EXAM: Female, 74 years old. Dyspnea. Found on floor. History of COPD and emphysema. History of heart valve repair and atrial fibrillation. RADIATION DOSAGE (If Supplied By Facility): CTDIvol = ( 19.53 ) mGy, DLP = ( 497.94 ) mGycm TECHNIQUE: The examination was performed with the intravenous administration of IV 75mL [id number]. Post-processing of the angiographic images was performed, with multiplanar reformation and 3D reconstruction. Individualized dose optimization techniques were used for this CT. COMPARISON: Chest 05/15/2020. CTA of the chest, 04/16/2020 FINDINGS: Normal enhancement of the main pulmonary artery and right and left pulmonary arteries. Normal enhancement of the bilateral peripheral pulmonary arteries. There is no demonstrated pulmonary embolism. Atherosclerotic changes of the thoracic aorta without aneurysm. There is evidence of aortic valve replacement. There is no demonstrated aortic dissection. The heart is prominent. Pacer wires are seen in the right heart. There are calcifications of the coronary arteries. There is mediastinal lymphadenopathy. Question mild hilar lymphadenopathy. Normal visualized trachea and bronchi. The lungs are well expanded. There is marked prominence of the interlobular septa in the upper lobes with focal area of emphysema with a crazy charge aide appearance. There is more groundglass infiltrative pattern in the inferior right upper lobe and lower lobes. There are small bilateral pleural effusions and atelectasis. There is evidence of median sternotomy. The pacer generator is seen within the soft tissues of the left upper chest. There are degenerative changes of thoracic spine. There is prominence of the hepatic veins and IVC which are filled with contrast suggesting reflux secondary to right heart failure. Liver demonstrates fatty infiltration. The upper abdomen is otherwise unremarkable. CT/CTA Chest W/WO Contrast IMPRESSION: 1. No evidence of pulmonary embolus. 2. No aortic dissection or aneurysm. There are atherosclerotic changes of the thoracic aorta without aneurysm. 3. Cardiomegaly with cardiac pacemaker and aortic valve replacement. There is reflux of contrast into the IVC and hepatic veins secondary to right heart failure. 4. Diffuse interstitial changes throughout the lungs suggestive of mild congestive change. Associated pleural effusions. 5. Near complete resolution of the patchy right upper lobe pulmonary infiltrate seen on the previous examination. 6. Fatty infiltration of the liver. Electronically Signed: Wojciech Hassan DO at 18:59 EST Tel [phone], Service support ,
--- NOTE | 2020-05-15 17:30 | ED.RN ---
PER DR. NAYLOR, DO NOT CONTINUE NIH'S. DR. NAYLOR AWARE OF [facility] SCORE.
[2020-05-15 17:35] LABS: BNP,B-Type NATRIURETIC PEPTIDE 345.6 pg/mL (0-100)
--- NOTE | 2020-05-15 17:55 | RAD_ITS ---
STUDY: X-RAY - RIGHT RADIUS AND ULNA REASON FOR EXAM: Female, 74 years old. Fall. Pain in the right forearm. TECHNIQUE: 2 view(s) of the forearm. COMPARISON: None. FINDINGS: There is no demonstrated soft tissue swelling. There is an IV in the antecubital space. Normal visualized radius. Normal visualized ulna. There is no acute fracture, dislocation or destructive osseous pathology. Mild arthrosis of the wrist and elbow. RAD/Forearm 2 Views IMPRESSION: No acute fracture or dislocation. Electronically Signed: Wojciech Hassan DO at 18:42 EST Tel [phone], Service support ,
[2020-05-15] MEDS: Furosemide 100 MG/10 ML Vial 60 MG IV (19:15)
--- NOTE | 2020-05-15 19:15 | ED.RN ---
02 increased to 6lnc. resp notified for bipap by
[2020-05-15 19:25] LABS: Lactic Acid 3.4 mmol/L (0.4-1.9)
--- NOTE | 2020-05-15 19:35 | ED.DCSUM_ITS ---
History of Present Illness Chief Complaint: Neuro S/Sx Informant: Family, Home Health Aide Caregiver Narrative: 74-year-old female presenting by EMS after being found in the floor of her bathroom by family. Family (daughter) states she talked to the patient at around 1700 hrs. yesterday. She stated that everything seemed fine. She was to have a delivery of furniture today and family made entry into the home and nobody responded to her phone call. They found her on the bathroom with a substantial amount of blood. Family notes apparent facial injury and injuries to the right hand. Patient moves all extremities but does not follow directions. She was noted to be hypoxemic. She does say yes or no questions and we can understand but she tends to make a sentence we cannot understand her. She does not know when she fell or why. 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 [place] tissue valve 01/04/2019 (14) History of mitral valve replacement with bioprosthetic valve Status: Chronic Comment: MVR w/ # 31 Biocar prosthetic valve 04/26/2009 (15) History of permanent cardiac pacemaker placement Status: Chronic Comment: S/P AV node ablation 12/2014 (16) Hyperlipidemia Status: Chronic (17) Hypertension Status: Chronic (18) Secondary pulmonary arterial hypertension Status: Chronic Past Medical History - Allergies and Home Meds Allergies/Adverse Reactions: Allergies Penicillins Allergy (Severe, Verified 05/02/20 10:13) Hives swelling of tongue and throat codeine Adverse Reaction (Severe, Verified 05/02/20 10:13) HALLUCINATIONS morphine Adverse Reaction (Severe, Verified 05/02/20 10:13) HALLUCINATIONS Kztnyvk-[id number] Reductase Inhibitor Adverse Reaction (Severe, Verified 05/02/20 10:13) leg cramps leg cramps blood thinners Adverse Reaction (Uncoded 05/02/20 10:13) Bleeding Primary Care Physician: Linda Gresham MD [Primary Care Provider] - Surgical History: appendectomy, cataract, cholecystectomy, hysterectomy, tonsillectomy, - - Aortic and mitral valve replacement, status post EGD on 08/26/19 with colon polyp clipping, status post tracheostomy Lives: Alone Smoking Status: Former smoker Drugs: None - Family History Paternal Family History: Family History (Last Reviewed 04/26/20 @ 13:57 by Tez Tobar NP, MATERIALS DIRECTOR-C) Brother Kidney disease Father Heart disease Prostate cancer Grandmother Breast cancer Family History: Reports: Heart Disease Maternal Family History: Family History (Last Reviewed 04/26/20 @ 13:57 by Tez Tobar NP, MATERIALS DIRECTOR-C) Brother Kidney disease Father Heart disease Prostate cancer Grandmother Breast cancer Family History: Reports: - - anemia Review of Systems ROS: Unable to Obtain Physical Exam Vital Signs/Narrative: Vital Signs Temp Pulse Resp BP Pulse Ox 05/15/20 19:00 60 27 H 101/78 80 05/15/20 18:45 98.4 F 05/15/20 18:36 61 23 H 105/64 05/15/20 17:03 611 H 26 H 140/92 H 92 05/15/20 16:08 96.1 F L 80 24 H 137/97 H 88 05/15/20 16:02 110 H 18 138/88 H Inital Vital Signs reviewed: Yes General: Well nourished, Well developed, Acute Distress - Patient appears dys pneic Head: Normocephalic, Trauma - There is dried blood on the lips and in the oropharynx. No obvious dental trauma or tongue laceration seen. There is bruising of the philtrum and the nose. No septal hematoma noted Eyes: Perrl, EOMI ENT: Moist mucous membranes, No rhinorrhea Neck: Supple, Nontender Cardiovascular: Regular rate, Regular rhythm, No murmurs Respiratory: Chest nontender, Rales, Rhonchi, Decreased Air Movement Abdomen: Soft, Nontender, Nondistended, Normal bowel sounds Back: Nontender, Normal Inspection Extremities: Nontender, Edema Skin: Normal color, No rash, Trauma - Multiple skin tears of the right hand. Contusion to the face. Neurological: Alert, Lethargic, - - Patient has difficulty following commands and fall asleep easily. I do see her spontaneously moving all extremities. A full NIH scale is basically impossible as I cannot keep her awake long enough to have her participate. Diagnostic/Tx/Re-eval Clinical Impression(s) from Imaging Studies Brain CT 05/15/20 16:19 IMPRESSION: 1. No evidence of acute intracranial or calvarial abnormality. 2. Ill-defined area of hypodensity with associated calcifications in the white matter of the right posterior parietal lobe. No evidence of mass effect or edema. Question slow growing mass. MRI is recommended. N.B. : The above information has been verbally conveyed by Wojciech Hassan DO to Brett Tejeda MD, on 05/15/2020 16:50:03 (ET). Electronically Signed: Wojciech Hassan DO at 16:51 EST Tel [phone], Service support , ADDENDUM: 05/15/20 1658 IMPRESSION: 1. No evidence of acute intracranial or calvarial abnormality. 2. Ill-defined area of hypodensity with associated calcifications in the white matter of the right posterior parietal lobe. No evidence of mass effect or edema. Question slow growing mass. MRI is recommended. N.B. : The above information has been verbally conveyed by Wojciech Hassan DO to Brett Tejeda MD, on 05/15/2020 16:50:03 (ET). Electronically Signed: Wojciech Hassan DO at 16:51 EST Tel [phone], Service support , Cervical Spine CT 05/15/20 16:21 IMPRESSION: Degenerative changes of the cervical spine. There is no acute fracture or subluxation. Electronically Signed: Wojciech Hassan DO at 16:57 EST Tel [phone], Service support , Facial/Sinus 05/15/20 16:21 IMPRESSION: No evidence of facial bone fracture. Electronically Signed: Wojciech Hassan at 16:52 EST Tel [phone], Service support , Chest X-Ray 05/15/20 16:54 IMPRESSION: Findings suggestive of cardiomegaly with worsening CHF when compared to prior study. Electronically Signed: Wojciech MoDO at 17:13 EST Tel [phone], Service support , Pelvis X-Ray 05/15/20 16:54 IMPRESSION: Degenerative changes in lumbar spine and bilateral hips. There is no acute fracture or dislocation. Electronically Signed: Wojciech [place] jan at 17:14 EST Tel [phone], Service support , Chest CTA 05/15/20 17:22 IMPRESSION: 1. No evidence of pulmonary embolus. 2. No aortic dissection or aneurysm. There are atherosclerotic changes of the thoracic aorta without aneurysm. 3. Cardiomegaly with cardiac pacemaker and aortic valve replacement. There is reflux of contrast into the IVC and hepatic veins secondary to right heart failure. 4. Diffuse interstitial changes throughout the lungs suggestive of mild congestive change. Associated pleural effusions. 5. Near complete resolution of the patchy right upper lobe pulmonary infiltrate seen on the previous examination. 6. Fatty infiltration of the liver. Electronically Signed: Wojciech Hassan DO at 18:59 EST Tel [phone], Service support , Hand X-Ray 05/15/20 17:22 IMPRESSION: Degenerative joint disease of the hand and wrist, as described above. No acute fracture or dislocation. Electronically Signed: Wojciech [place] jan at 18:43 EST Tel [phone], Service support , Forearm X-Ray 05/15/20 17:55 IMPRESSION: No acute fracture or dislocation. Electronically Signed: Wojciech Hassan DO at 18:42 EST Tel [phone], Service support , Laboratory Last Values WBC 18.8 K/mm3 (4.4-11.0) H 05/15/20 16:20 RBC 5.42 M/mm3 (4.2-5.4) H 05/15/20 16:20 Hgb 15.9 g/dL (12.0-15.0) H 05/15/20 16:20 Hct 49.8 % (37-47) H 05/15/20 16:20 MCV 91.9 fL (81-99) 05/15/20 16:20 MCH 29.3 pg (27.0-32.0) 05/15/20 16:20 MCHC 31.9 g/dL (32-36) L 05/15/20 16:20 RDW Std Deviation 59.8 fl (35.1-43.9) H 05/15/20 16:20 RDW Coeff of [place] 18.9 % (11.6-14.6) H 05/15/20 16:20 Plt Count 487 K/mm3 (150-450) H 05/15/20 16:20 MPV 9.8 fl (6.2-12.0) 05/15/20 16:20 Immature Gran % (Auto) 1.800 % (0.0-0.9) H 05/15/20 16:20 Neut % (Auto) 81.9 % (47-70) H 05/15/20 16:20 Lymph % (Auto) 3.9 % (19-41) L 05/15/20 16:20 Wood % (Auto) 11.7 % (0-10) H 05/15/20 16:20 Eos % (Auto) 0.1 % (0-5) 05/15/20 16:20 Baso % (Auto) 0.6 % (0-1) 05/15/20 16:20 Absolute Neuts (auto) 15.4 X10^3/uL (2.0-7.7) H 05/15/20 16:20 Absolute Lymphs (auto) 0.74 X10^3/uL (0.83-4.51) L 05/15/20 16:20 Nucleated RBC % 0.2 % (0-5) 05/15/20 16:20 Differential Comment SEE COMMENT 05/15/20 16:20 Diff Path Review July05/15/20 16:20 Platelet Estimate SLT INC (ADEQ) 05/15/20 16:20 RBC Morphology N CHROM NORMAL (NORM C&C) 05/15/20 16:20 Anisocytosis RARE 05/15/20 16:20 Macrocytosis RARE 05/15/20 16:20 PT 15.7 SECONDS (11.7-14.9) H 05/15/20 16:20 INR 1.3 05/15/20 16:20 APTT 24.1 Seconds (24.1-36.2) 05/15/20 16:20 Specimen Type ART 05/15/20 16:58 Specimen Type Cancelled 05/15/20 16:58 Sample Site Cancelled 05/15/20 16:58 Sample Site L Radial 05/15/20 16:58 pH 7.45 (7.35-7.45) 05/15/20 16:58 pH Cancelled 05/15/20 16:58 Bicarbonate Actual 25.0 mmol/L (22-26) 05/15/20 16:58 Bicarbonate Actual Cancelled 05/15/20 16:58 Total CO2 26 mmol/L 05/15/20 16:58 Total CO2 Cancelled 05/15/20 16:58 Base Excess 1 mmol/L (-2 to +2) 05/15/20 16:58 Base Excess Cancelled 05/15/20 16:58 O2 Saturation 89 % (95-99) L 05/15/20 16:58 O2 Saturation Cancelled 05/15/20 16:58 O2 % Cancelled 05/15/20 16:58 ABG pCO2 35.7 mmHg (35-45) 05/15/20 16:58 ABG pCO2 Cancelled 05/15/20 16:58 ABG pO2 52 mmHG (75-100) L 05/15/20 16:58 ABG pO2 Cancelled 05/15/20 16:58 Channing Test Cancelled 05/15/20 16:58 Channing Test Positive 05/15/20 16:58 Respiration Rate Cancelled 05/15/20 16:58 O2 Delivery Device Cancelled 05/15/20 16:58 O2 Delivery Device Cannula 05/15/20 16:58 Liter Flow 3.0 /min 05/15/20 16:58 Liter Flow Cancelled 05/15/20 16:58 Minute Volume Cancelled 05/15/20 16:58 Vent Mode Cancelled 05/15/20 16:58 Inspiratory Time Cancelled 05/15/20 16:58 Expiratory Time Cancelled 05/15/20 16:58 Tidal Volume Cancelled 05/15/20 16:58 POC PEEP Cancelled 05/15/20 16:58 POC Pressure Suppt Cancelled 05/15/20 16:58 Pressure Control Cancelled 05/15/20 16:58 Pressure High Cancelled 05/15/20 16:58 Pressure Low Cancelled 05/15/20 16:58 Time High Cancelled 05/15/20 16:58 Time Low Cancelled 05/15/20 16:58 EPAP Cancelled 05/15/20 16:58 IPAP Cancelled 05/15/20 16:58 Blood Gas Comments Cancelled 05/15/20 16:58 Blood Gas Notified Whom Cancelled 05/15/20 16:58 Blood Gas Notified Time Cancelled 05/15/20 16:58 Sodium 137 mmol/L (136-145) 05/15/20 16:20 Potassium 3.7 mmol/L (3.5-5.1) 05/15/20 16:20 Chloride 99 mmol/L (98-107) 05/15/20 16:20 Carbon Dioxide 29.0 mmol/L (21.0-32.0) 05/15/20 16:20 Anion Gap 9 (5-15) 05/15/20 16:20 BUN 31 mg/dL (7-18) H 05/15/20 16:20 Creatinine 1.23 mg/dL (0.55-1.02) H 05/15/20 16:20 Estim Creat Clear Calc 35.56 ml/min 05/15/20 16:20 Est GFR (MDRD) Af Amer 55 mL/min (>60) L 05/15/20 16:20 Est GFR (MDRD) Non-Af 45 mL/min (>60) L 05/15/20 16:20 BUN/Creatinine Ratio 25.2 RATIO (10-20) H 05/15/20 16:20 Glucose 154 mg/dL (74-106) H 05/15/20 16:20 Lactic Acid 3.4 mmol/L (0.4-1.9) H* 05/15/20 18:30 Calcium 10.4 mg/dL (8.5-10.1) H 05/15/20 16:20 Total Bilirubin 2.10 mg/dL (0.20-1.00) H 05/15/20 16:20 AST 24 U/L (15-37) 05/15/20 16:20 ALT 24 U/L (13-56) 05/15/20 16:20 Alkaline Phosphatase 141 U/L (45-117) H 05/15/20 16:20 Total Creatine Kinase 57 U/L (26-192) 05/15/20 16:20 Troponin I 0.115 ng/mL (<0.045) H 05/15/20 16:20 B-Natriuretic Peptide 345.6 pg/mL (0-100) H 05/15/20 16:20 Total Protein 7.8 g/dL (6.4-8.2) 05/15/20 16:20 Albumin 3.7 g/dL (3.2-5.0) 05/15/20 16:20 Globulin 4.1 g/dL (2.2-4.2) 05/15/20 16: Albumin/Globulin Ratio 0.9 RATIO (0.9-2.4) 05/15/20 16:20 Lipase 166 U/L (73-393) 05/15/20 16:20 Urine Color Yellow (Yellow) 05/15/20 16: Urine Clarity Clear (Clear) 05/15/20 16: Urine pH 5.0 (5.0 - 8.0) 05/15/20 16:29 Ur Specific [place] 1.020 (1.002-1.030) 05/15/20 16: Urine Protein 30 mg/dl (Negative) H 05/15/20 16: Urine Glucose (UA) Normal mg/dl (Normal) 05/15/20 16: Urine Ketones Negative mg/dl (Negative) 05/15/20 16: Urine Occult Blood Negative /ul (Negative) 05/15/20 16: Urine Nitrite Negative (Negative) 05/15/20 16: Urine Bilirubin Negative mg/dL (Negative) 05/15/20 16:29 Urine Urobilinogen 1 mg/dl (Normal) H 05/15/20 16:29 Ur Leukocyte Esterase 25 /ul (Negative) H 05/15/20 16:29 Urine RBC 0 SEEN /hpf (0-5) 05/15/20 16:29 Urine WBC 0 SEEN /hpf (0-5) 05/15/20 16:29 Ur Squamous Epith Cells 0 SEEN /hpf (5-10) 05/15/20 16:29 Urine Bacteria 1+ /hpf (None Seen) 05/15/20 16:29 Hyaline Casts 0-5 SEEN /lpf (0-5) 05/15/20 16:29 Urine Mucus 0 SEEN /hpf (<or=2+) 05/15/20 16:29 POC Glucose 136 mg/dL (70-110) H 05/15/20 16:09 - EKG Initial EKG Interpretation: - - EKG demonstrates a ventricular paced rhythm at a rate of 61. - Medical Decision Making CT of the brain and cervical spine were obtained. Please see radiologist read but in short there is an ill-defined area of hypodensity with calcifications in the white matter in the right posterior parietal lobe. Going back to the patient's chart I see that in 2008 the patient had a head CT. It is dated July 10, 2008. 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 My interpretation of the plain films of the hand forearm chest pelvis negative for acute fracture. CT of the head face and cervical spine were negative for fracture or bleed. CTA of the chest was negative for pulmonary embolism or obvious infiltrate. Patient was placed on BiPAP for her CHF and hypoxemia. On 5 L the patient desaturates to 72. It is unclear if the patient might have had a stroke versus head injury with concussion versus hypoventilation from other? At this time the patient falls asleep very easily. She is acutely hypoxemic is difficult to say if this could represent a stroke I cannot get a good stroke evaluation on her. Our plan is to place her in the ICU for further care. - Critical Care Time Critical care time (excluding procedures): 30-74 minutes - 35 minutes ED Disposition - Plan for ED Patient: Disposition: Acute Care Hospital [facility] Diagnosis: Multiple skin tears, Hypoxia, Fall, Facial contusion, CHF (congestive heart failure), Acute hypoxemic respiratory failure Referrals: Linda Gresham MD [Primary Care Provider] -
--- NOTE | 2020-05-15 20:16 | ED.RN ---
family member natasha lovingr daughter wants called w any update [phone]
--- NOTE | 2020-05-15 20:31 | PCM.HP.STD ---
Problem List (1) COVID-19 Status: Acute (2) Multiple skin tears Status: Acute (3) Hypoxia Status: Acute (4) Fall Status: Acute (5) Facial contusion Status: Acute (6) CHF (congestive heart failure) Status: Acute (7) Acute hypoxemic respiratory failure Status: Acute (8) Thyroid disorder Status: Chronic (9) History of pneumonia Status: Chronic (10) Hyperlipidemia Status: Chronic Qualifiers: Hyperlipidemia type: unspecified Qualified Code(s): E78.5 - Hyperlipidemia, unspecified (11) Hypertension Status: Chronic Qualifiers: Hypertension type: essential hypertension Qualified Code(s): I10 - Essential (primary) hypertension (12) History of gallstones Status: Chronic (13) COPD (chronic obstructive pulmonary disease) Status: Chronic Qualifiers: COPD type: unspecified COPD Qualified Code(s): J44.9 - Chronic obstructive pulmonary disease, unspecified (14) Type 2 diabetes mellitus without complications Status: Chronic Qualifiers: Diabetes mellitus longterm insulin use: without longterm use Qualified Code(s): E11.9 - Type 2 diabetes mellitus without complications (15) Chronic bronchitis Status: Chronic (16) Cataracts, both eyes Status: Chronic (17) Asthma Status: Chronic (18) History of blood clots Status: Chronic (19) Anemia Status: Chronic (20) Seasonal allergies Status: Chronic (21) Ascites Status: Chronic (22) Dyspnea on minimal exertion Status: Chronic (23) History of permanent cardiac pacemaker placement Status: Chronic Comment: S/P AV node ablation 12/2014 (24) Longstanding persistent atrial fibrillation Status: Chronic (25) Non-sustained ventricular tachycardia Status: Chronic (26) Rheumatic aortic stenosis with insufficiency Status: Chronic (27) Rheumatic mitral stenosis with insufficiency Status: Chronic (28) History of aortic valve replacement with bioprosthetic valve Status: Chronic Comment: AVR w/ #23 Biocor prosthetic valve 04/26/2009; Re-Do: TAVR-PATRICIA w/ 23 mm ES S3 valve within a [address] 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 Status: Chronic (32) Non-rheumatic tricuspid valve insufficiency Status: Chronic (33) Secondary pulmonary arterial hypertension Status: Chronic (34) Essential (primary) hypertension Status: Chronic (35) GI bleed Status: Chronic (36) Iron deficiency anemia due to chronic blood loss Status: Chronic History of Present Illness Date of Admission: 05/15/20 Chief Complaint: Found in the bathroom floor The patient is a 74 year old F with a significant history of obstructive sleep apnea on home CPAP; brain hemangioma; multiple bleeds and diastolic heart failure who was found in her bathroom floor in her pajamas and with her bed unmade. Per family anytime the patient is off her bed she make sure that she makes her bed. Reportedly there was blood in patient's mouth and blood on the floor and with a skin tear to her right forearm and on her right dockery. Patient's grandson works at a [employer]. Patient was supposed to have a furniture from the same company ([employer]) delivered to her. When the [employer] company called patient to deliver her furniture patient was not picking the phone. Because patient was not picking her phone, patient's grandson came to patient home and found patient in the bathroom as above. Patient's family had a conversation with patient a day before the presentation and patient was completely normal. At the emergent department patient was answering yes or no questions without elaborating. Patient was found to be cold with body temperature of 96 Fahrenheit. Her oxygen saturation was in the 70s. Patient was placed on the BiPAP. Past Medical History Past Medical History (Chronic Problems): Chronic Problems (Last Reviewed 05/15/20 @ 20:[address] Merlin Espinosa MD) Thyroid disorder (Chronic) History of pneumonia (Chronic) Hyperlipidemia (Chronic) Hypertension (Chronic) History of gallstones (Chronic) COPD (chronic obstructive pulmonary disease) (Chronic) Type 2 diabetes mellitus without complications (Chronic) Chronic bronchitis (Chronic) Cataracts, both eyes (Chronic) Asthma (Chronic) History of blood clots (Chronic) Anemia (Chronic) Seasonal allergies (Chronic) Ascites (Chronic) Dyspnea on minimal exertion (Chronic) History of permanent cardiac pacemaker placement (Chronic 01/10/15) S/P AV node ablation 12/2014 Longstanding persistent atrial fibrillation (Chronic) Non-sustained ventricular tachycardia (Chronic) 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) I50.42, I38 Non-rheumatic tricuspid valve insufficiency (Chronic) I36.1 Secondary pulmonary arterial hypertension (Chronic) I27.21 Essential (primary) hypertension (Chronic) I10 GI bleed (Chronic) Onset Date: 01/18/19 K92.2 Iron deficiency anemia due to chronic blood loss (Chronic) D50.0 Vertigo R42 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 DVT of lower extremity, bilateral I82.403 GI AVM (gastrointestinal arteriovenous vascular malformation) K55.20 cauterized July 2018 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, liver and left eye Hypothyroidism E03.9 Obesity E66.9 Osteoarthritis M19.90 Rheumatic fever I00 Sleep apnea G47.30 Dyspnea on exertion (Resolved) R06.09 Thrombocytosis D47.3 Upper GI bleed K92.2 Anemia (Inactive) D64.9 Chronic diastolic (congestive) heart failure (Inactive) I50.32 Allergies Penicillins Allergy (Severe, Verified 05/02/20 10:13) Hives swelling of tongue and throat codeine Adverse Reaction (Severe, Verified 05/02/20 10:13) HALLUCINATIONS morphine Adverse Reaction (Severe, Verified 05/02/20 10:13) HALLUCINATIONS [id number]-Req-Umq Reductase Inhibitor Adverse Reaction (Severe, Verified 05/02/20 10:13) leg cramps leg cramps blood thinners Adverse Reaction (Uncoded 05/02/20 10:13) Bleeding Home Medications: Ambulatory Orders Medication Instructions Recorded Albuterol Sulfate [Albuterol 2 puff IH Q6H 05/15/20 Sulfate HFA] Calcium Carbonate 600 mg PO BID 05/15/20 Cetirizine HCl [All Day Allergy] 10 mg PO DAILY 05/15/20 Cholecalciferol (VIT D3) [Vitamin 1,000 unit PO DAILY 05/15/20 D] Fluticasone/Salmeterol [Advair 1 puff INHALATION BID 05/15/20 250/50 Mcg Diskus] Furosemide [Lasix] 40 mg PO DAILY 05/15/20 Levothyroxine [Synthroid] 50 mcg PO DAILY 05/15/20 Metolazone [Zaroxolyn] 2.5 mg PO WE 05/15/20 Metoprolol Succinate 50 mg PO DAILY 05/15/20 Pantoprazole Sodium [Protonix] 40 mg PO DAILY 05/15/20 Potassium Chloride [Klor-Con] 20 meq PO 05/15/20 Vitamin C/Zinc PO DAILY 05/15/20 Surgical History: Surgical History (Last Reviewed 05/16/20 @ 01:[address] Merlin Espinosa MD) History of permanent cardiac pacemaker placement (Chronic) Onset Date: 01/10/15 Z95.0 S/P AV node ablation 12/2014 History of aortic valve replacement with bioprosthetic valve (Chronic) Onset Date: 01/04/19 Z95.3 AVR w/ #23 Biocor prosthetic valve 04/26/2009; Re-Do: TAVR-PATRICIA w/ 23 mm ES S3 valve within a [address] Rudi tissue valve 01/04/2019 History of mitral valve replacement with bioprosthetic valve (Chronic) Onset Date: 04/26/09 Z95.3 MVR w/ # 31 Biocar prosthetic valve 04/26/2009 Colon polyp K63.5 08/26/2019 EGD at [facility], colon polyp was clipped (recent bleeding) History of appendectomy Z90.49 History of cataract surgery Z98.49 History of hysterectomy Z90.710 History of left heart catheterization Onset Date: 11/12/18 Z98.890 mild non obstructive CAD History of radiofrequency ablation procedure for cardiac arrhythmia Onset Date: 01/10/15 Z98.890 AV Junction Ablation History of removal of cyst Z98.890 right breast History of tonsillectomy and adenoidectomy Z98.890 History of total abdominal hysterectomy Z90.710 Hx of cholecystectomy Z90.49 history bilateral cataract surgery tracheostomy Onset Date: 12/03/072007 Surgical History: appendectomy, cataract, cholecystectomy, hysterectomy, tonsillectomy, - - Aortic and mitral valve replacement, status post EGD on 08/26/19 with colon polyp clipping, status post tracheostomy Psychiatric History: 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 psych hx MUD GRINDER History: 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 MUD GRINDER history Lives: Alone Smoking Status: Former smoker Drugs: None - *Family History Maternal Family History: Family History (Last Reviewed 05/16/20 @ 01:[address] Merlin Espinosa MD) Brother Kidney disease Father Heart disease Prostate cancer Grandmother Breast cancer History Items: - - anemia Paternal Family History: Family History (Last Reviewed 05/16/20 @ 01:[address] Merlin Espinosa MD) Brother Kidney disease Father Heart disease Prostate cancer Grandmother Breast cancer History Items: Heart Disease Review of Systems Unable to obtain accurate/complete ROS d/t: Patient is unable to provide information. VTE Information - Inpt Only VTE Present on Admission: No VTE Mechan Device Prophylaxis: SCD's VTE Pharm Prophylaxis ordered?: No Patient Problems: Active and Suspected Problems (Last Reviewed 05/15/20 @ 20:[address] Merlin Espinosa MD) COVID-19 (Acute) Multiple skin tears (Acute) Hypoxia (Acute) Fall (Acute) Facial contusion (Acute) CHF (congestive heart failure) (Acute) Acute hypoxemic respiratory failure (Acute) - Physical Exam Vitals/I&O's: Vital Signs Temp Pulse Resp BP Pulse Ox 99.2 F H 70 25 H 123/75 H 92 05/15/20 20:27 05/15/20 20:27 05/15/20 20:27 05/15/20 20:27 05/15/20 20:27 Oxygen Flow Rate (L/min) 3 Oxygen Delivery Method Bi-pap Weight: 90.3 kg Body Mass Index (BMI) 33.1 Finger Stick Blood Glucose 137 Intake and Output for Last 24 Hours 05/13/20 05/14/20 05/15/20 23:59 23:59 23:59 Intake Total 1300 / 1300 Balance 1300 / 1300 General: - - Hypoalert HEENT: Normocephalic, - - Purplish discoloration around nose. Neck: Supple, No JVD, Negative Carotid Bruits Lungs: Clear to auscultation, Normal air movement Cardiovascular: Regular rate, Normal S1, Normal S2, No murmurs Abdomen: Bowel Sounds Present, Soft, Non Tender Extremities: Capillary Refill Less than 3 Seconds, Edema - Bilateral leg edema Skin: - - A skin tear to right dockery; and to right forearm. Musculoskeletal: No Tenderness to Palpation of Joints or Extremities Neurological: - - Does not follow commands Psych/Mental Status: Flat Affect Laboratory Results 05/15/20 16:09: POC Glucose 136 H 05/15/20 16:20: WBC 18.8 H, RBC 5.42 H, Hgb 15.9 H, Hct 49.8 H, MCV 91.9, MCH 29.3, MCHC 31.9 L, RDW Std Deviation 59.8 H, RDW Coeff of [place] 18.9 H, Plt Count 487 H, MPV 9.8, Immature Gran % (Auto) 1.800 H, Neut % (Auto) 81.9 H, Lymph % (Auto) 3.9 L, [place] % (Auto) 11.7 H, Eos % (Auto) 0.1, Baso % (Auto) 0.6, Absolute Neuts (auto) 15.4 H, Absolute Lymphs (auto) 0.74 L, Nucleated RBC % 0.2, Differential Comment SEE COMMENT, Diff Path Review Tereza obrien, Platelet Estimate SLT INC, RBC Morphology N CHROM, Anisocytosis RARE, Macrocytosis RARE 05/15/20 16:20: PT 15.7 H, INR 1.3, APTT 24.1 05/15/20 16:20: Sodium 137, Potassium 3.7, Chloride 99, Carbon Dioxide 29.0, Anion Gap 9, BUN 31 H, Creatinine 1.23 H, Estim Creat Clear Calc 35.56, Est GFR (MDRD) Af Amer 55 L, Est GFR (MDRD) Non-Af 45 L, BUN/Creatinine Ratio 25.2 H, Glucose 154 H, Calcium 10.4 H, Total Bilirubin 2.10 H, AST 24, ALT 24, Alkaline Phosphatase 141 H, Troponin I 0.115 H, Total Protein 7.8, Albumin 3.7, Globulin 4.1, Albumin/Globulin Ratio 0.9, Lipase 166 05/15/20 16:20: B-Natriuretic Peptide 345.6 H 05/15/20 16:20: Total Creatine Kinase 57 05/15/20 16:29: Urine Color Yellow, Urine Clarity Clear, Urine pH 5.0, Ur Specific [place] 1.020, Urine Protein 30 H, Urine Glucose (UA) Normal, Urine Ketones Negative, Urine Occult Blood Negative, Urine Nitrite Negative, Urine Bilirubin Negative, Urine Urobilinogen 1 H, Ur Leukocyte Esterase 25 H, Urine RBC 0 SEEN, Urine WBC 0 SEEN, Ur Squamous Epith Cells 0 SEEN, Urine Bacteria 1+, Hyaline Casts 0-5 SEEN, Urine Mucus 0 SEEN 05/15/20 16:58: Specimen Type ART, Sample Site L Radial, pH 7.45, Bicarbonate Actual 25.0, Total CO2 26, Base Excess 1, O2 Saturation 89 L, ABG pCO2 35.7, ABG pO2 52 L, Channing Test Positive, O2 Delivery Device Cannula, Liter Flow 3.0 05/15/20 16:58: Specimen Type Cancelled, Sample Site Cancelled, pH Cancelled, Bicarbonate Actual Cancelled, Total CO2 Cancelled, Base Excess Cancelled, O2 Saturation Cancelled, O2 % Cancelled, ABG pCO2 Cancelled, ABG pO2 Cancelled, Channing Test Cancelled, Respiration Rate Cancelled, O2 Delivery Device Cancelled, Liter Flow Cancelled, Minute Volume Cancelled, Vent Mode Cancelled, Inspiratory Time Cancelled, Expiratory Time Cancelled, Tidal Volume Cancelled, POC PEEP Cancelled, POC Pressure Suppt Cancelled, Pressure Control Cancelled, Pressure High Cancelled, Pressure Low Cancelled, Time High Cancelled, Time Low Cancelled, EPAP Cancelled, IPAP Cancelled, Blood Gas Comments Cancelled, Blood Gas Notified Whom Cancelled, Blood Gas Notified Time Cancelled 05/15/20 18:30: Lactic Acid 3.4 H* Assessment/Plan All Active Problems (Last Reviewed 05/15/20 @ 20:[address] Merlin Espinosa MD) COVID-19 (Acute) Multiple skin tears (Acute) Hypoxia (Acute) Fall (Acute) Facial contusion (Acute) CHF (congestive heart failure) (Acute) Acute hypoxemic respiratory failure (Acute) Dyspnea on exertion (Resolved) Elevated troponin (Resolved) Epistaxis (Resolved) Iron deficiency anemia (Resolved) The patient is a 74 year old F with a significant history of obstructive sleep apnea on BiPAP; brain hemangioma; multiple bleeds and diastolic heart failure who was found in her bathroom floor and in her pajamas with her bed unmade Acute hypoxemic respiratory failure secondary to acute exacerbation of heart failure with preserved ejection fraction Her BNP was elevated at 345.6. Also her troponin was elevated. Chest x-ray was concerning for cardiomegaly with worsening congestive heart failure when compared to prior study. Chest CTA showed cardiomegaly and reflux of contrast into the IVC and hepatic veins secondary to right heart failure also there was diffuse interstitial changes throughout the lungs suggesting mild congestive change and with pleural effusions. There was a near complete resolution of patchy right lobe pulmonary infiltrate seen on previous study. Echocardiogram on 06/07/2019: Estimated ejection fraction was 55%. Also there was hypokinesis of the apex and mid anteroseptal. ICD and pacer leads were within the right ventricle. Systolic function was normal. Stable appearing bioprosthetic mitral valve apparatus was seen. There was mild to moderate tricuspid valve insufficiency. Pulmonary artery systolic pressure was 40. Peak aortic valve gradient was 44. Mean aortic valve gradient was 66 mmHg. Bioprosthetic aortic valve was in place. Due to severity of his symptoms we will repeat an echocardiogram. Received Lasix 60 mg IV at emergency department. On home metolazone. Held because patient is n.p.o. at this time. Lasix 40 mg IV twice daily ordered. Trend BMP. Daily weights. Strict intake and output. Fluid restriction of 35 and mL per day. Placed on BiPAP at emergency department and continued. [employer] Supervisor consult Leukocytosis and low-grade fever Patient with leukocyte count of 18.8. Highest T-max of 99.4 Fahrenheit. This could be reactive. How diagnosis is not clear-cut. Will start patient on antibiotics. Of note patient is allergic to penicillin. Patient with severe hives with penicillin. Levaquin ordered. Trend CBC. Urinalysis was unremarkable. Urine culture and blood culture ordered at emergency department; follow. Acute encephalopathy Etiology is unclear at this point. Patient with significant hypoxemia on presentation and this could be contributing. Brain CT with ill-defined hypodensity. Brain CT was discussed with emergency department doctor who stated that previous records showed that this ill-defined hypodensity was unchanged. Will obtain MRI at this point. Patient has a pacemaker but she noted stating that the pacemaker is MRI compatible. Nursing staff to check with patient parachute/combatant diver officer office Dr. Smith or [facility] to see the pacemaker is MRI compatible. Ammonia level and vitamin B12 level ordered. TSH ordered. PT/OT/ST to evaluate. Elevated troponin Likely type II [place] from demand ischemia's Trend Lactic acidosis Trended Likely secondary to hypoxia. Urine culture and blood culture has been obtained and patient has been started on broad-spectrum antibiotics. Obstructive sleep apnea On home CPAP BiPAP ordered at this time. Skin tear right forearm and right dockery Dry dressing change daily. Diabetes mellitus Blood glucose is within goal Accu-Chek q6 hours CKD stage III Stable Hypercalcemia Calcium of 10.4 On Lasix Trend. Mild hyperbilirubinemia Total bilirubin of 2.10 Trend. Facial contusion Mild erythema around nose. No further intervention at this time. DVT prophylaxis With contusions and skin tear will avoid chemical thromboprophylaxis at this time. SCD ordered. Inpatient E&M: 52044 Init Hosp L3
[2020-05-15 22:04] LABS: Vitamin B12 467 pg/mL (211-911)
[2020-05-15] MEDS: Budesonide Respules 0.5 MG/2 ML AMPUL.NEB. INHALATION (22:14)
[2020-05-15] MEDS: Albuterol 2.5 MG/3 ML VIAL.NEB. INHALATION (22:14)
[2020-05-15 22:33] LABS: Reflex Lactate? Y
[2020-05-15 22:46] LABS: Allen Test Positive; Base Excess 2 mmol/L (-2 to +2); Bicarbonate 25.6 mmol/L (22-26); Blood Gas Specimen Type ART; FI02 30; O2 Delivery Device BiPAP; PEEP 10; PO2 80 mmHG (75-100); RR 12; SITE L Radial; SO2 97 % (95-99); Total Carbon Dioxide 27 mmol/L; pCO2 34.9 mmHg (35-45); pH 7.47 (7.35-7.45)
[2020-05-15 22:55] LABS: Lactic Acid 3.2 mmol/L (0.4-1.9)
[2020-05-16] VITALS (34 sets, daily range): BP systolic 93–138; BP diastolic 52–91; PULSE 20–75; RESP 12–30; TEMP 36.2–37.6; O2SAT 91–99; BMI 32.1
--- NOTE | 2020-05-16 01:08 | ECHOD_ITS ---
Reason For Study: DYSPNEA/SOB Procedure This was a 2D Doppler, Color Flow transthoracic echocardiogram. The study was technically difficult. Due to body habitus. PT had difficulty lying still due to coughing. Deferred Definity due to increased PAP. Exam performed portable in ICU/CCU. Left Ventricle Normal LV size. D shaped septum in diastole. Left ventricular systolic function is normal. The estimated ejection fraction is 60 %. No regional wall motion abnormalities noted. Right Ventricle Moderately dilated right ventricle. ICD or pacer leads identified within the right ventricle. Moderate global right ventricular systolic dysfunction. Atria The left atrium is moderately enlarged. The right atrium is moderately enlarged. Mitral Valve Stable appearing bioprosthetic mitral valve apparatus. Tricuspid Valve Normal tricuspid valve. Moderate (2+) tricuspid valve insufficiency. Pulmonary artery systolic pressure is 60 mmHg. Moderate pulmonary hypertension. Aortic Valve Peak aortic valve gradient 68 mmHg. Mean aortic valve gradient 38 mmHg. Bioprosthetic aortic valve. Pulmonic Valve Normal pulmonic valve. Great Vessels Normal aortic root. The pulmonary artery is normal size. The inferior vena cava is dilated. Pericardium/Pleural No pericardial effusion. MMode/2D Measurements & Calculations LVIDd: 4.8 cm IVSd: 1.2 cm LAV(MOD-bp): 87.4 ml LVIDs: 3.4 cm LVPWd: 1.0 cm LAV(MOD-bp) Indexed: 46.0 ml/m2 RVDd: 4.6 cm FS: 30.4 % LAV(MOD-sp2): 84.4 ml LAV(MOD-sp4): 83.2 ml LA A4 area: 25.6 cm2 RA A4 area: 25.7 cm2 Doppler Measurements & Calculations MV V2 max: 276.6 cm/sec Ao V2 max: 414.3 cm/sec LV V1 max: 69.3 cm/sec MV max P.7 mmHg Ao max P.7 mmHg LV V1 max P.9 mmHg MV V2 mean: 177.9 cm/sec Ao V2 mean: 290.5 cm/sec LV V1 mean P.85 mmHg MV mean P.1 mmHg Ao mean P.1 mmHg LV V1 mean: 43.5 cm/sec MV V2 VTI: 116.6 cm Ao V2 VTI: 81.1 cm LV V1 VTI: 11.7 cm TR max deniz: 380.2 cm/sec TR max P.8 mmHg Interpretation Summary Normal LV size. Left ventricular systolic function is normal. The estimated ejection fraction is 60 %. D shaped septum in diastole. Moderately dilated right ventricle. Pulmonary artery systolic pressure is 60 mmHg. Moderate pulmonary hypertension. Compared to the previous the RV pressures are higher. Ordering Physician: Merlin Espinosa Referring Physician: Linda Gresham Performed By: Maricruz Ayala, KARLY, RVT
[2020-05-16] MEDS: levoFLOXacin IV 500 MG/100 ML BAG 100 MG IV (01:42)
[2020-05-16] MEDS: 0.9% Saline Lock 10 ML Syringe IV ×2 (01:42→17:14)
[2020-05-16 04:04] LABS: Absolute Lymphocyte Count 0.55 X10^3/uL (0.83-4.51); Absolute Neutrophil Count 13.1 X10^3/uL (2.0-7.7); Basophil# 0.06 X10^3/uL; Basophil% 0.4 % (0-1); Eosinophil# 0.02 X10^3/uL; Eosinophils% 0.1 % (0-5); Hemoglobin 13.9 g/dL (12.0-15.0); Lymphocyte # 0.55 X10^3/ul (4.0); Lymphocyte % 3.6 % (19-41); Mean Corp Hgb Conc 31.6 g/dL (32-36); Mean Corpuscular Hgb 29.2 pg (27.0-32.0); Mean Corpuscular Volume 92.4 fL (81-99); Mean Platelet Vol. 9.5 fl (6.2-12.0); Monocyte# 1.64 X10^3/uL; Monocyte% 10.6 % (0-10); NRBC Flagged by Analyzer 0 % (0-5); Neutrophil # 13.05 X10^3/uL (2.7-7.7); Neutrophil % 84.4 % (47-70); POSITIVE DIFFERENTIAL YES; Platelet Count 377 K/mm3 (150-450); RBC Distribution Width CV 18.7 % (11.6-14.6); RBC Distribution Width SD 60.4 fl (35.1-43.9); Red Blood Count 4.76 M/mm3 (4.2-5.4); White Blood Count 15.5 K/mm3 (4.4-11.0)
[2020-05-16 04:05] LABS: Differential Indicated SCAN CRITERIA MET
[2020-05-16 04:27] LABS: ALB/GLOB Ratio 0.8 RATIO (0.9-2.4); AST(SGOT) 22 U/L (15-37); Alanine Aminotransfer ALT/SGPT 20 U/L (13-56); Albumin, Serum 2.9 g/dL (3.2-5.0); Alkaline Phosphatase 110 U/L (45-117); Anion Gap 7 (5-15); BUN 28 mg/dL (7-18); BUN/Creat Ratio 24.8 RATIO (10-20); Calcium,Total 9.1 mg/dL (8.5-10.1); Chloride 103 mmol/L (98-107); Creatinine, Serum 1.13 mg/dL (0.55-1.02); EST Glomerular Filtration Rate 50 mL/min (>60); Est Glom Filt Rate - Afr Amer 60 mL/min (>60); Estimated Creatinine Clearance 37.15 ml/min; Globulin 3.5 g/dL (2.2-4.2); Glucose 167 mg/dL (74-106); Potassium 3.4 mmol/L (3.5-5.1); Protein, Total 6.4 g/dL (6.4-8.2); Sodium Level 140 mmol/L (136-145); Thyroid Stim Hormone (TSH) 1.68 uIU/mL (0.358-3.74)
[2020-05-16 04:57] LABS: Differential Comment SCANNED
[2020-05-16 05:00] LABS: Anisocytosis RARE; Macrocytosis RARE
--- NOTE | 2020-05-16 05:00 | MRI_ITS ---
We are attempting to reach an attending provider to discuss findings. An addendum with communication details will be sent when the communication is complete. STUDY: MRI BRAIN WITHOUT CONTRAST REASON FOR EXAM: Female, 74 years old. cva, aphasia, rt arm/leg weakness, hx brain hemangioma TECHNIQUE: Standardized multiplanar fat and water weighted pulse sequences were obtained. COMPARISON: CT 05/15/2020 FINDINGS: There is moderate cerebral atrophy with widening of the extra-axial spaces and ventricular dilatation. There are a limited number of small white matter hyperintensities, distributed throughout the deep white matter tracts of the cerebral hemispheres, consistent with mild chronic white matter ischemic changes. Large hyperintensity of the medial left temporal lobe and left thalamus demonstrates restricted diffusion consistent with an acute/subacute infarct. 1.5 cm lobular mass with hemosiderin staining within the periventricular posterior right parietal lobe consistent with a vascular malformation. Normal bilateral basal ganglia. Normal thalami. There is no extra-axial fluid accumulation. Normal flow voids within the major intracranial circulation suggesting patency by spin echo criteria. Normal sella turcica, pituitary gland, infundibular stalk, optic chiasm and hypothalamus. Normal tectal plate and pineal gland. Normal midbrain, valentin and medulla. Normal cerebellum. Normal basal cisterns. Normal bilateral temporal bones. Normal bilateral internal auditory canals. There are bilateral ocular lens implants with otherwise normal intraorbital contents. Normal visualized paranasal sinuses. Normal calvarium and skull base. Normal visualized soft tissue structures. Normal visualized upper cervical spine. MRI/Brain without Contrast IMPRESSION: Involutional changes of the brain, as described above. Large acute/subacute infarct of the medial left temporal lobe and left thalamus per Electronically Signed: Ronald Zavaleta MD at 16:34 EST Tel , Service support ,
[2020-05-16 05:01] LABS: Polychromasia RARE
--- NOTE | 2020-05-16 05:09 | MRI_ITS ---
STUDY: MRA NECK WITH AND WITHOUT CONTRAST REASON FOR EXAM: Female, 74 years old. cva, aphasia, rt arm/leg weakness, hx brain hemangioma TECHNIQUE: 3-D ttty-[id number]-pizmoy (TOF) imaging was performed in an 1.5 T MRI scanner. dotarem 17ml IV was administered for the contrast enhanced images. COMPARISON: None. FINDINGS: RIGHT CAROTID ARTERIES: Normal right common carotid artery (CCA). Normal right common carotid bulb. Normal origin of the right internal carotid (ICA) artery without a hemodynamically significant stenosis. Normal visualized cervical portion of the right internal carotid artery. Normal origin of the right external carotid artery (ECA). LEFT CAROTID ARTERIES: Normal left common carotid artery (CCA). Normal left common carotid bulb. Normal origin of the left internal carotid (ICA) artery without a hemodynamically significant stenosis. Normal visualized cervical portion of the left internal carotid artery. Normal origin of the left external carotid artery (ECA). VERTEBRAL ARTERIES: Normal right vertebral artery. Faint visualization left vertebral artery which may represent hyperplasia or spasm. MRI/MRA Neck WITH and W/O Contrast IMPRESSION: 1. No carotid stenosis. 2. Patent right vertebral artery. 3. Poorly visualized left vertebral artery which may be hypoplastic or with spasm. Electronically Signed: Ronald Zavaleta MD at 16:42 EST Tel , Service support ,
--- NOTE | 2020-05-16 05:12 | MRI_ITS ---
STUDY: MRA OF THE HEAD WITHOUT CONTRAST REASON FOR EXAM: Female, 74 years old. cva, right arm/ leg weakness, aphasia, known hemangioma TECHNIQUE: 3-D [id number] (TOF) imaging was performed with MIPs. The study was performed unenhanced. COMPARISON: None. FINDINGS: Normal bilateral petrous carotid arteries. Normal right cavernous carotid artery with a normal supraclinoid bifurcation. Normal left cavernous carotid artery with a normal supraclinoid bifurcation. Normal right A1 segments of the anterior cerebral artery. Normal left A1 segments of the anterior cerebral artery. Normal intact anterior communicating artery (ACOM). Normal bilateral A2 segments of the anterior cerebral arteries. Normal right M1 and M2 segments of the middle cerebral arteries, with a normal M1 bifurcation. Normal left M1 and M2 segments of the middle cerebral arteries, with a normal M1 bifurcation. Normal right posterior communicating artery (PCOM). Normal left posterior communicating artery (PCOM). Nonvisualization of the left vertebral artery which may be excluded. Oormal basilar artery with a normal basilar bifurcation. The visualized bilateral superior cerebellar (SCA) arteries are normal. Widely patent right posterior cerebral artery. Abrupt occlusion of the P1 segment the left posterior cerebral artery consistent with infarct. There is no demonstrated aneurysm of the [place]. There is no major vessel occlusion or hemodynamically significant stenosis. There is no demonstrated abnormality of the visualized brain. MRI/MRA Head ONLY without Contrast IMPRESSION: 1. Nonvisualization of the left vertebral artery which may be occluded. 2. Abrupt occlusion of the P1 segment the left posterior cerebral artery consistent with acute infarct. Electronically Signed: Ronald Zavaleta MD at 16:37 EST Tel , Service support ,
[2020-05-16] MEDS: Potassium Chloride 10mEq/100mL 10 MEQ/100 ML IV.SOLN. 100 MEQ IV BOLUS ×4 (05:29→09:44)
[2020-05-16 05:39] LABS: Cholesterol 106 mg/dL (200); High Density Lipoprotein 49 mg/dL; Triglycerides 82 mg/dL; Very Low Density Lipoprotein 16 mg/dL (5-40)
--- NOTE | 2020-05-16 05:57 | NURSING ---
Spoke with Daughter Megan (POA) about MRI situation with patient's pacemaker. Megan stated that as far as she knows the pacemaker is not compatible. Gave Megan an update on pt and informed her that they would possibly order a CTA of her head today to get a better picture.
[2020-05-16] MEDS: Aspirin 300 MG Suppository RC (06:42)
[2020-05-16 06:50] LABS: Bedside Glucose 141 mg/dL (70-110)
--- NOTE | 2020-05-16 07:10 | PCM.CON.CC ---
Problem List (1) COVID-19 Status: Acute (2) Multiple skin tears Status: Acute (3) Hypoxia Status: Acute (4) Fall Status: Acute (5) CHF (congestive heart failure) Status: Acute (6) Acute hypoxemic respiratory failure Status: Acute (7) Thyroid disorder Status: Chronic (8) Hyperlipidemia Status: Chronic Qualifiers: Hyperlipidemia type: unspecified Qualified Code(s): E78.5 - Hyperlipidemia, unspecified (9) Hypertension Status: Chronic Qualifiers: Hypertension type: essential hypertension Qualified Code(s): I10 - Essential (primary) hypertension (10) COPD (chronic obstructive pulmonary disease) Status: Chronic Qualifiers: COPD type: unspecified COPD Qualified Code(s): J44.9 - Chronic obstructive pulmonary disease, unspecified (11) Type 2 diabetes mellitus without complications Status: Chronic Qualifiers: Diabetes mellitus director [employer] insulin use: without senior living use Qualified Code(s): E11.9 - Type 2 diabetes mellitus without complications (12) Asthma Status: Chronic (13) Anemia Status: Chronic (14) Seasonal allergies Status: Chronic (15) History of permanent cardiac pacemaker placement Status: Chronic Comment: S/P AV node ablation 12/2014 (16) Longstanding persistent atrial fibrillation Status: Chronic (17) Rheumatic aortic stenosis with insufficiency Status: Chronic (18) History of aortic valve replacement with bioprosthetic valve Status: Chronic Comment: AVR w/ #23 Biocor prosthetic valve 04/26/2009; Re-Do: TAVR-PATRICIA w/ 23 mm ES S3 valve within a [address] Rudi tissue valve 01/04/2019 (19) History of mitral valve replacement with bioprosthetic valve Status: Chronic Comment: MVR w/ # 31 Biocar prosthetic valve 04/26/2009 (20) Non-ischemic cardiomyopathy Status: Chronic (21) Non-rheumatic tricuspid valve insufficiency Status: Chronic (22) Secondary pulmonary arterial hypertension Status: Chronic (23) Essential (primary) hypertension Status: Chronic Reason for Consult Date of Consultation: 05/16/20 Reason for Consultation: Respiratory failure History of Present Illness: The patient is a 74 year old F, with past medical history listed below, who presented to [facility] on 05/15/2020 after being found on the floor of the bathroom by her family. Patient reportedly had talked to her daughter yesterday at approximately 5 PM and everything was doing okay. Patient reportedly was supposed to have furniture delivered and did not answer her phone, so family did well check. Patient reportedly was moving all extremities, but not following directions. Patient was also noted to be hypoxemic with a substantial amount of blood on the floor. In the ER, patient was afebrile and normotensive. Patient was slightly tachycardic and tachypneic, but blood pressures remained stable. Patient was hypoxic. A CT of the head showed no acute intracranial abnormality. Remaining x-rays showed no acute fracture. A CTA of the chest showed no PE with groundglass suggestive of congestive heart failure. Laboratory work-up showed a leukocytosis of 18.8 with a hemoglobin of 15.9. Patient had normal coagulation studies. Chemistry showed a slightly elevated creatinine of 1.23 and a lactate of 3.4. BNP was slightly elevated at 345 and UA was relatively unremarkable. Patient was noted to be significantly desaturate despite 5 L nasal cannula, so was placed on BiPAP and diuretic therapy. It was unclear at that time whether patient's findings were related to hypoxia versus CVA. Patient was admitted to the intensive care unit for further evaluation. Over the course of the evening, patient has done okay. Patient's NIH scale has been elevated at 16-18 secondary to aphasia and right greater than left weakness. Patient has remained hemodynamically stable. No further bleeding has been noted. Patient did have multiple skin tears that were addressed. Patient opens her eyes, but still answers in yes and no questions. Unable to obtain review of systems secondary to mental status. Past Medical History Past Medical History (Chronic Problems): Chronic Problems (Last Reviewed 05/16/20 @ 01:[address] Merlin Espinosa MD) Thyroid disorder (Chronic) History of pneumonia (Chronic) Hyperlipidemia (Chronic) Hypertension (Chronic) History of gallstones (Chronic) COPD (chronic obstructive pulmonary disease) (Chronic) Type 2 diabetes mellitus without complications (Chronic) Chronic bronchitis (Chronic) Cataracts, both eyes (Chronic) Asthma (Chronic) History of blood clots (Chronic) Anemia (Chronic) Seasonal allergies (Chronic) Ascites (Chronic) Dyspnea on minimal exertion (Chronic) History of permanent cardiac pacemaker placement (Chronic 01/10/15) S/P AV node ablation 12/2014 Longstanding persistent atrial fibrillation (Chronic) Non-sustained ventricular tachycardia (Chronic) 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) I50.42, I38 Non-rheumatic tricuspid valve insufficiency (Chronic) I36.1 Secondary pulmonary arterial hypertension (Chronic) I27.21 Essential (primary) hypertension (Chronic) I10 GI bleed (Chronic) Onset Date: 01/18/19 K92.2 Iron deficiency anemia due to chronic blood loss (Chronic) D50.0 Vertigo R42 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 DVT of lower extremity, bilateral I82.403 GI AVM (gastrointestinal arteriovenous vascular malformation) K55.20 cauterized July 2018 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, liver and left eye Hypothyroidism E03.9 Obesity E66.9 Osteoarthritis M19.90 Rheumatic fever I00 Sleep apnea G47.30 Dyspnea on exertion (Resolved) R06.09 Thrombocytosis D47.3 Upper GI bleed K92.2 Anemia (Inactive) D64.9 Chronic diastolic (congestive) heart failure (Inactive) I50.32 Allergies Penicillins Allergy (Severe, Verified 05/02/20 10:13) Hives swelling of tongue and throat codeine Adverse Reaction (Severe, Verified 05/02/20 10:13) HALLUCINATIONS morphine Adverse Reaction (Severe, Verified 05/02/20 10:13) HALLUCINATIONS Uwsreid-Ghr-Brr Reductase Inhibitor Adverse Reaction (Severe, Verified 05/02/20 10:13) leg cramps leg cramps blood thinners Adverse Reaction (Uncoded 05/02/20 10:13) Bleeding Home Medications: Ambulatory Orders Medication Instructions Recorded Albuterol Sulfate [Albuterol 2 puff IH Q6H 05/15/20 Sulfate HFA] Calcium Carbonate 600 mg PO BID 05/15/20 Cetirizine HCl [All Day Allergy] 10 mg PO DAILY 05/15/20 Cholecalciferol (VIT D3) [Vitamin 1,000 unit PO DAILY 05/15/20 D] Fluticasone/Salmeterol [Advair 1 puff INHALATION BID 05/15/20 250/50 Mcg Diskus] Furosemide [Lasix] 40 mg PO DAILY 05/15/20 Levothyroxine [Synthroid] 50 mcg PO DAILY 05/15/20 Metolazone [Zaroxolyn] 2.5 mg PO WE 05/15/20 Metoprolol Succinate 50 mg PO DAILY 05/15/20 Pantoprazole Sodium [Protonix] 40 mg PO DAILY 05/15/20 Potassium Chloride [Klor-Con] 20 meq PO 05/15/20 Vitamin C/Zinc PO DAILY 05/15/20 Surgical History: Surgical History (Last Reviewed 05/16/20 @ 01:[address] Merlin Espinosa MD) History of permanent cardiac pacemaker placement (Chronic) Onset Date: 01/10/15 Z95.0 S/P AV node ablation 12/2014 History of aortic valve replacement with bioprosthetic valve (Chronic) Onset Date: 01/04/19 Z95.3 AVR w/ #23 Biocor prosthetic valve 04/26/2009; Re-Do: TAVR-PATRICIA w/ 23 mm ES S3 valve within a [address] Rudi tissue valve 01/04/2019 History of mitral valve replacement with bioprosthetic valve (Chronic) Onset Date: 04/26/09 Z95.3 MVR w/ # 31 Biocar prosthetic valve 04/26/2009 Colon polyp K63.5 08/26/2019 EGD at [facility], colon polyp was clipped (recent bleeding) History of appendectomy Z90.49 History of cataract surgery Z98.49 History of hysterectomy Z90.710 History of left heart catheterization Onset Date: 11/12/18 Z98.890 mild non obstructive CAD History of radiofrequency ablation procedure for cardiac arrhythmia Onset Date: 01/10/15 Z98.890 AV Junction Ablation History of removal of cyst Z98.890 right breast History of tonsillectomy and adenoidectomy Z98.890 History of total abdominal hysterectomy Z90.710 Hx of cholecystectomy Z90.49 history bilateral cataract surgery tracheostomy Onset Date: 12/03/072007 Surgical History: appendectomy, cataract, cholecystectomy, hysterectomy, tonsillectomy, - - Aortic and mitral valve replacement, status post EGD on 08/26/19 with colon polyp clipping, status post tracheostomy Psychiatric History: 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 psych hx 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 Merlin Espinosa MD) Brother Kidney disease Father Heart disease Prostate cancer Grandmother Breast cancer History Items: - - anemia Paternal Family History: Family History (Last Reviewed 05/16/20 @ 01:[address] Merlin Espinosa MD) Brother Kidney disease Father Heart disease Prostate cancer Grandmother Breast cancer History Items: Heart Disease Review of Systems Unable to obtain accurate/complete ROS d/t: Mental status Patient Problems: Active and Suspected Problems (Last Reviewed 05/16/20 @ 01:[address] Merlin Espinosa MD) COVID-19 (Acute) Multiple skin tears (Acute) Hypoxia (Acute) Fall (Acute) Facial contusion (Acute) CHF (congestive heart failure) (Acute) Acute hypoxemic respiratory failure (Acute) - Physical Exam Vitals/I&O's: Vital Signs Temp Pulse Resp BP Pulse Ox 36.4 C L 60 21 H 120/64 94 05/16/20 04:00 05/16/20 07:00 05/16/20 07:00 05/16/20 07:00 05/16/20 07:00 Oxygen Flow Rate (L/min) 3 Oxygen Delivery Method Bi-pap Weight: 84.9 kg Body Mass Index (BMI) 32.1 Finger Stick Blood Glucose 137 Intake and Output for Last 24 Hours 05/14/20 05/15/20 05/16/20 23:59 23:59 23:59 Intake Total 1300 / 1300 200.25 / 200.25 Output Total 500 / 500 325 / 325 Balance 800 / 800 -124.75 / -124.75 General: Alert, Cooperative, No apparent distress, Confused, Disoriented, - - Appropriate eye contact. HEENT: Atraumatic, PERRLA, EOMI, Normocephalic, - - No facial droop appreciated, but BiPAP in place Oral: No Gingival or Mucosal Lesions/ Ulcerations, Dry Mucosa Neck: Supple, No Nodes, Trachea Midline, JVD, Right Lungs: No rhonchi, No wheeze, No rales, Diminished, - - Symmetric expansion Cardiovascular: Regular rate, Regular Rhythm, Normal S1, Normal S2, Murmur, No rub noted, No Gallop Abdomen: Bowel Sounds Present, Soft, Non Tender, Non-Distended, Obese Extremities: No clubbing, No cyanosis, Edema - Trace lower extremity Skin: - - Skin tears are dressed with no seepage through the bandage Musculoskeletal: No Tenderness to Palpation of Joints or Extremities Lymphatic: No Cervical, Supraclavicular, or Inguinal Adenopathy Neurological: - - Global weakness, left greater than right noted. Aphasia appears to be improving compared to nursing report. Psych/Mental Status: Flat Affect Laboratory Results 05/15/20 16:09: POC Glucose 136 H 05/15/20 16:20: WBC 18.8 H, RBC 5.42 H, Hgb 15.9 H, Hct 49.8 H, MCV 91.9, MCH 29.3, MCHC 31.9 L, RDW Std Deviation 59.8 H, RDW Coeff of Mar[place] 18.9 H, Plt Count 487 H, MPV 9.8, Immature Gran % (Auto) 1.800 H, Neut % (Auto) 81.9 H, Lymph % (Auto) 3.9 L, Gentry % (Auto) 11.7 H, Eos % (Auto) 0.1, Baso % (Auto) 0.6, Absolute Neuts (auto) 15.4 H, Absolute Lymphs (auto) 0.74 L, Nucleated RBC % 0.2, Differential Comment SEE COMMENT, Diff Path Review May foll, Platelet Estimate SLT INC, RBC Morphology N CHROM, Anisocytosis RARE, Macrocytosis RARE 05/15/20 16:20: PT 15.7 H, INR 1.3, APTT 24.1 05/15/20 16:20: Sodium 137, Potassium 3.7, Chloride 99, Carbon Dioxide 29.0, Anion Gap 9, BUN 31 H, Creatinine 1.23 H, Estim Creat Clear Calc 35.56, Est GFR (MDRD) Af Amer 55 L, Est GFR (MDRD) Non-Af 45 L, BUN/Creatinine Ratio 25.2 H, Glucose 154 H, Calcium 10.4 H, Total Bilirubin 2.10 H, AST 24, ALT 24, Alkaline Phosphatase 141 H, Troponin I 0.115 H, Total Protein 7.8, Albumin 3.7, Globulin 4.1, Albumin/Globulin Ratio 0.9, Lipase 166 05/15/20 16:20: B-Natriuretic Peptide 345.6 H 05/15/20 16:20: Total Creatine Kinase 57 05/15/20 16:20: Vitamin B12 467 05/15/20 16:29: Urine Color Yellow, Urine Clarity Clear, Urine pH 5.0, Ur Specific [place] 1.020, Urine Protein 30 H, Urine Glucose (UA) Normal, Urine Ketones Negative, Urine Occult Blood Negative, Urine Nitrite Negative, Urine Bilirubin Negative, Urine Urobilinogen 1 H, Ur Leukocyte Esterase 25 H, Urine RBC 0 SEEN, Urine WBC 0 SEEN, Ur Squamous Epith Cells 0 SEEN, Urine Bacteria 1+, Hyaline Casts 0-5 SEEN, Urine Mucus 0 SEEN 05/15/20 16:58: Specimen Type ART, Sample Site L Radial, pH 7.45, Bicarbonate Actual 25.0, Total CO2 26, Base Excess 1, O2 Saturation 89 L, ABG pCO2 35.7, ABG pO2 52 L, Channing Test Positive, O2 Delivery Device Cannula, Liter Flow 3.0 05/15/20 16:58: Specimen Type Cancelled, Sample Site Cancelled, pH Cancelled, Bicarbonate Actual Cancelled, Total CO2 Cancelled, Base Excess Cancelled, O2 Saturation Cancelled, O2 % Cancelled, ABG pCO2 Cancelled, ABG pO2 Cancelled, Channing Test Cancelled, Respiration Rate Cancelled, O2 Delivery Device Cancelled, Liter Flow Cancelled, Minute Volume Cancelled, Vent Mode Cancelled, Inspiratory Time Cancelled, Expiratory Time Cancelled, Tidal Volume Cancelled, POC PEEP Cancelled, POC Pressure Suppt Cancelled, Pressure Control Cancelled, Pressure High Cancelled, Pressure Low Cancelled, Time High Cancelled, Time Low Cancelled, EPAP Cancelled, IPAP Cancelled, Blood Gas Comments Cancelled, Blood Gas Notified Whom Cancelled, Blood Gas Notified Time Cancelled 05/15/20 18:30: Lactic Acid 3.4 H* 05/15/20 22:15: Ammonia 22.0 05/15/20 22:15: Lactic Acid 3.2 H* 05/15/20 22:37: Specimen Type ART, Sample Site L Radial, pH 7.47 H, Bicarbonate Actual 25.6, Total CO2 27, Base Excess 2, O2 Saturation 97, O2 % 30, ABG pCO2 34.9 L, ABG pO2 80, Channing Test Positive, Respiration Rate 12, O2 Delivery Device BiPAP, POC PEEP 10 05/16/20 00:55: Troponin I 0.124 H 05/16/20 03:55: WBC 15.5 H, RBC 4.76, Hgb 13.9, Hct 44.0, MCV 92.4, MCH 29.2, MCHC 31.6 L, RDW Std Deviation 60.4 H, RDW Coeff of Marino 18.7 H, Plt Count 377, MPV 9.5, Immature Gran % (Auto) 0.900, Neut % (Auto) 84.4 H, Lymph % (Auto) 3.6 L, Gentry % (Auto) 10.6 H, Eos % (Auto) 0.1, Baso % (Auto) 0.4, Absolute Neuts (auto) 13.1 H, Absolute Lymphs (auto) 0.55 L, Nucleated RBC % 0, Differential Comment SCANNED, Diff Path Review May foll, Polychromasia RARE, Anisocytosis RARE, Macrocytosis RARE 05/16/20 03:55: Troponin I 0.122 H 05/16/20 03:55: Sodium 140, Potassium 3.4 L, Chloride 103, Carbon Dioxide 30.0, Anion Gap 7, BUN 28 H, Creatinine 1.13 H, Estim Creat Clear Calc 37.15, Est GFR (MDRD) Af Amer 60, Est GFR (MDRD) Non-Af 50 L, BUN/Creatinine Ratio 24.8 H, Glucose 167 H, Calcium 9.1, Total Bilirubin 2.70 H, AST 22, ALT 20, Alkaline Phosphatase 110, Total Protein 6.4, Albumin 2.9 L, Globulin 3.5, Albumin/Globulin Ratio 0.8 L, TSH 1.68 05/16/20 06:45: Troponin I 0.091 H 05/16/20 06:45: POC Glucose 141 H 05/16/20 : Triglycerides 82, Cholesterol 106, LDL Cholesterol 41, VLDL Cholesterol 16, HDL Cholesterol 49 05/16/20 : Hemoglobin A1c Pending Current Medications Albuterol Sulfate (Albuterol 2.5 Mg/3 Ml Vial.Neb.) 2.5 mg INHALATION Q2H PRN PRN PRN Reason: SOB/Wheezing Albuterol Sulfate (Albuterol 2.5 Mg/3 Ml Vial.Neb.) 2.5 mg INHALATION Q6HWA.RT JAZMIN Last Admin: 05/15/20 22:14 Dose: 2.5 mg Documented by: Aspirin (Aspirin 300 Mg Suppository) 300 mg RC DAILY JAZMIN Last Admin: 05/16/20 06:42 Dose: 300 mg Documented by: Budesonide (Budesonide Respules 0.5 Mg/2 Ml Ampul.Neb.) 0.5 mg INHALATION Q12H.RT JAZMIN Last Admin: 05/15/20 22:14 Dose: 0.5 mg Documented by: Furosemide (Furosemide 40 Mg/4 Ml Vial) 40 mg IV BID@1000,1800 JAZMIN Hydralazine HCl (Hydralazine 20 Mg/Ml Vial) 5 mg IV Q30M PRN PRN Reason: to maintain BP goals Pantoprazole Sodium 40 mg/ (Sodium Chloride) 110 mls @ 330 mls/hr IV Q24 JAZMIN Sodium Chloride () 250 mls @ 15 mls/hr IV .[id number] PRN PRN Reason: Saline Flush Last Infusion: 05/16/20 01:43 Dose: 0 mls/hr Documented by: Sodium Chloride () 250 mls @ 15 mls/hr IV .[id number] PRN PRN Reason: Additional IVPB Infusion Levofloxacin (Levaquin Iv) 250 mg in 50 mls @ 50 mls/hr IV Q24H JAZMIN Potassium Chloride () 10 meq in 100 mls @ 100 mls/hr IV BOLUS Q1H JAZMIN Stop: 05/16/20 09:14 Last Admin: 05/16/20 06:42 Dose: 100 mls/hr Documented by: Labetalol HCl (Labetalol (Prefilled) 20 Mg/4 Ml) 10 - 20 mg IV Q10M PRN PRN PRN Reason: to Maintain BP Goals Ondansetron HCl (Ondansetron 4 Mg/2 Ml Vial) 4 mg IV Q8H PRN PRN PRN Reason: NAUSEA/VOMITING Sodium Chloride (0.9% Saline Lock 10 Ml Syringe) 10 - 40 ml IV UD PRN PRN Reason: SALINE FLUSH Last Admin: 05/16/20 01:42 Dose: 40 ml Documented by: Clinical Impression(s) from Imaging Studies Brain CT 05/15/20 16:19 IMPRESSION: 1. No evidence of acute intracranial or calvarial abnormality. 2. Ill-defined area of hypodensity with associated calcifications in the white matter of the right posterior parietal lobe. No evidence of mass effect or edema. Question slow growing mass. MRI is recommended. N.B. : The above information has been verbally conveyed by Wojciech Hassan DO to Brett Tejeda MD, on 05/15/2020 16:50:03 (ET). Electronically Signed: Wojciech Hassan DO at 16:51 EST Tel [phone], Service support , ADDENDUM: 05/15/20 1658 IMPRESSION: 1. No evidence of acute intracranial or calvarial abnormality. 2. Ill-defined area of hypodensity with associated calcifications in the white matter of the right posterior parietal lobe. No evidence of mass effect or edema. Question slow growing mass. MRI is recommended. N.B. : The above information has been verbally conveyed by Wojciech Hassan DO to Brett Tejeda MD, on 05/15/2020 16:50:03 (ET). Electronically Signed: Wojciech Hassan DO at 16:51 EST Tel [phone], Service support , Cervical Spine CT 05/15/20 16:21 IMPRESSION: Degenerative changes of the cervical spine. There is no acute fracture or subluxation. Electronically Signed: Wojciech Hassan DO at 16:57 EST Tel [phone], Service support , Facial/Sinus 05/15/20 16:21 IMPRESSION: No evidence of facial bone fracture. Electronically Signed: Wojciech Hassan DO at 16:52 EST Tel [phone], Service support , Chest X-Ray 05/15/20 16:54 IMPRESSION: Findings suggestive of cardiomegaly with worsening CHF when compared to prior study. Electronically Signed: Wojciech Hassan DO at 17:13 EST Tel [phone], Service support , Pelvis X-Ray 05/15/20 16:54 IMPRESSION: Degenerative changes in lumbar spine and bilateral hips. There is no acute fracture or dislocation. Electronically Signed: Wojciech Hassan DO at 17:14 EST Tel [phone], Service support , Chest CTA 05/15/20 17:22 IMPRESSION: 1. No evidence of pulmonary embolus. 2. No aortic dissection or aneurysm. There are atherosclerotic changes of the thoracic aorta without aneurysm. 3. Cardiomegaly with cardiac pacemaker and aortic valve replacement. There is reflux of contrast into the IVC and hepatic veins secondary to right heart failure. 4. Diffuse interstitial changes throughout the lungs suggestive of mild congestive change. Associated pleural effusions. 5. Near complete resolution of the patchy right upper lobe pulmonary infiltrate seen on the previous examination. 6. Fatty infiltration of the liver. Electronically Signed: Wojciech Hassan DO at 18:59 EST Tel [phone], Service support , Hand X-Ray 05/15/20 17:22 IMPRESSION: Degenerative joint disease of the hand and wrist, as described above. No acute fracture or dislocation. Electronically Signed: Wojciech Hassan DO at 18:43 EST Tel [phone], Service support , Forearm X-Ray 05/15/20 17:55 IMPRESSION: No acute fracture or dislocation. Electronically Signed: Wojciech Hassan DO at 18:42 EST Tel [phone], Service support , Assessment/Plan Active and Suspected Problems (Last Reviewed 05/16/20 @ 01:[address] Merlin Espinosa MD) COVID-19 (Acute) Multiple skin tears (Acute) Hypoxia (Acute) Fall (Acute) Facial contusion (Acute) CHF (congestive heart failure) (Acute) Acute hypoxemic respiratory failure (Acute) RECOMMENDATIONS: 1. Continue to monitor neuro status with NIH is 2. Active diuresis as tolerated 3. Aggressive potassium repletion 4. BiPAP breaks as tolerated 5. Wound care assessment of skin tears 6. Possibly repeat CT scan in 24 hours versus MRI IMPRESSIONS: 1. Acute hypoxemic respiratory failure secondary to probable CHF Patient does have a history of COVID-19 in the past, but also has an extensive cardiac history. Findings on CT scan appear to be more consistent with congestive heart failure. Patient has received Lasix and is on minimal oxygen requirements by BiPAP. Will attempt BiPAP breaks as tolerated. Patient does not have any ST changes. Aspirin is likely sufficient. Defer to hospitalist on whether cardiology needs to be involved. 2. Metabolic encephalopathy versus acute CVA Neurologic status appears to be somewhat improving over the course of the hospitalization. Patient did recently have an MRI, so this can likely be completed. Patient may benefit from a teleneurology evaluation. Oxygenation continues to be improving. Patient does have a leukocytosis, but lacks other findings consistent with sepsis leading to encephalopathy. Anoxic encephalopathy would also be a consideration given patient's oxygen saturations when found. This would likely lead to watershed infarcts on MRI 3. Leukocytosis/lactic acidosis Unclear if this is a cause or effect of patient's fall. Patient does have multiple skin tears and was found down for quite some time while hypoxic. Patient has been placed on empiric antibiotics. Continue to monitor. 4. CELESTINO/skin tear/diabetes mellitus/CKD stage III/contusions from fall Complicates care, management, recovery and prognosis. Therapies have been ordered. Would benefit from wound care evaluation. Monitor blood sugars with Accu-Cheks only as p.o. intake will be variable given other issues. Inpatient E&M: 70026 Init Hosp L3
[2020-05-16] MEDS: Albuterol 2.5 MG/3 ML VIAL.NEB. INHALATION ×3 (07:20→18:34)
[2020-05-16] MEDS: Budesonide Respules 0.5 MG/2 ML AMPUL.NEB. INHALATION ×2 (07:20→18:34)
[2020-05-16] MEDS: Furosemide 40 MG/4 ML Vial IV ×2 (09:46→17:14)
--- NOTE | 2020-05-16 11:22 | CASEMGMT ---
AIDA [facility] readmission note: Previous admission: Admitted from home 04/16/20 for COVID. Discharged home 04/17. Pt did not qualify for Home O2. Pt lives alone and was independent. Pt was to f/u with her Current admission: Admitted 05/15/20 to ICU with dx of Acute hypoxic resp failure. Pt was found by family on the floor in her home w/facial contusion and multiple skin tears. Pulse ox was in the 80%'s when EMS arrived. Pt was placed on BIPAP on admission but is currently on 2 L/M. CT of head done: no acute findings. MRI ordered and is pending. Discharge disposition: TBD PT/OT evals pending. MRI pending. José Luis DAVID RN CM
--- NOTE | 2020-05-16 13:35 | NURSING ---
wound photo: right hand/wrist
--- NOTE | 2020-05-16 13:36 | NURSING ---
wound photo: right dockery
--- NOTE | 2020-05-16 13:53 | PN_ITS ---
Patient Problems: Active and Suspected Problems (Last Reviewed 05/16/20 @ 01:[address] Merlin Espinosa MD) COVID-19 (Acute) Multiple skin tears (Acute) Hypoxia (Acute) Fall (Acute) Facial contusion (Acute) CHF (congestive heart failure) (Acute) Acute hypoxemic respiratory failure (Acute) Subjective: Confused. Vitals/I&O's: Vital Signs Temp Pulse Resp BP Pulse Ox 37.1 C 60 23 H 93/62 94 05/16/20 12:00 05/16/20 13:02 05/16/20 13:02 05/16/20 12:00 05/16/20 13:02 Oxygen Flow Rate (L/min) 1.5 Oxygen Delivery Method Nasal Cannula Weight: 84.9 kg Body Mass Index (BMI) 32.1 Finger Stick Blood Glucose 137 Intake and Output for Last 24 Hours 05/14/20 05/15/20 05/16/20 23:59 23:59 23:59 Intake Total 1300 / 1300 610.25 / 610.25 Output Total 500 / 500 325 / 325 Balance 800 / 800 285.25 / 285.25 General: Alert, No apparent distress HEENT: Atraumatic, EOMI Oral: Moist Mucosa, No Gingival or Mucosal Lesions/ Ulcerations Neck: No Nodes, Thyroid Normal Size and Texture Lungs: Clear to auscultation, Normal air movement, No rhonchi, No wheeze, No rales Cardiovascular: Regular rate, Regular Rhythm, Normal S1, Normal S2, No murmurs Abdomen: Bowel Sounds Present, Soft, Non Tender, Non-Distended, No Hepato- splenomegaly Extremities: No edema, No Calf Tenderness Skin: No rashes, No breakdown Musculoskeletal: No Tenderness to Palpation of Joints or Extremities, No Muscle Wasting Neurological: Cranial nerves II-XII grossly intact, - - Strength 5 5 in the left upper and left lower extremity. Strength 0 out of 5 in the right upper and right lower extremity. Patient with difficulty reciting items on the NIH score sheet. When prompted in regards to the correct term, such as cactus, patient would start the word with a T. Psych/Mental Status: Normal Affect, Appropriate Laboratory Results 05/15/20 16:09: POC Glucose 136 H 05/15/20 16:20: WBC 18.8 H, RBC 5.42 H, Hgb 15.9 H, Hct 49.8 H, MCV 91.9, MCH 29.3, MCHC 31.9 L, RDW Std Deviation 59.8 H, RDW Coeff of Marino 18.9 H, Plt Count 487 H, MPV 9.8, Immature Gran % (Auto) 1.800 H, Neut % (Auto) 81.9 H, Lymph % (Auto) 3.9 L, Warrick % (Auto) 11.7 H, Eos % (Auto) 0.1, Baso % (Auto) 0.6, Absolute Neuts (auto) 15.4 H, Absolute Lymphs (auto) 0.74 L, Nucleated RBC % 0.2, Differential Comment SEE COMMENT, Diff Path Review May micah, Platelet Estimate SLT INC, RBC Morphology N CHROM, Anisocytosis RARE, Macrocytosis RARE 05/15/20 16:20: PT 15.7 H, INR 1.3, APTT 24.1 05/15/20 16:20: Sodium 137, Potassium 3.7, Chloride 99, Carbon Dioxide 29.0, Anion Gap 9, BUN 31 H, Creatinine 1.23 H, Estim Creat Clear Calc 35.56, Est GFR (MDRD) Af Amer 55 L, Est GFR (MDRD) Non-Af 45 L, BUN/Creatinine Ratio 25.2 H, Glucose 154 H, Calcium 10.4 H, Total Bilirubin 2.10 H, AST 24, ALT 24, Alkaline Phosphatase 141 H, Troponin I 0.115 H, Total Protein 7.8, Albumin 3.7, Globulin 4.1, Albumin/Globulin Ratio 0.9, Lipase 166 05/15/20 16:20: B-Natriuretic Peptide 345.6 H 05/15/20 16:20: Total Creatine Kinase 57 05/15/20 16:20: Vitamin B12 467 05/15/20 16:29: Urine Color Yellow, Urine Clarity Clear, Urine pH 5.0, Ur Specific [place] 1.020, Urine Protein 30 H, Urine Glucose (UA) Normal, Urine Ketones Negative, Urine Occult Blood Negative, Urine Nitrite Negative, Urine Bilirubin Negative, Urine Urobilinogen 1 H, Ur Leukocyte Esterase 25 H, Urine RBC 0 SEEN, Urine WBC 0 SEEN, Ur Squamous Epith Cells 0 SEEN, Urine Bacteria 1+, Hyaline Casts 0-5 SEEN, Urine Mucus 0 SEEN 05/15/20 16:58: Specimen Type ART, Sample Site L Radial, pH 7.45, Bicarbonate Actual 25.0, Total CO2 26, Base Excess 1, O2 Saturation 89 L, ABG pCO2 35.7, ABG pO2 52 L, Channing Test Positive, O2 Delivery Device Cannula, Liter Flow 3.0 05/15/20 16:58: Specimen Type Cancelled, Sample Site Cancelled, pH Cancelled, Bicarbonate Actual Cancelled, Total CO2 Cancelled, Base Excess Cancelled, O2 Saturation Cancelled, O2 % Cancelled, ABG pCO2 Cancelled, ABG pO2 Cancelled, Channing Test Cancelled, Respiration Rate Cancelled, O2 Delivery Device Cancelled, Liter Flow Cancelled, Minute Volume Cancelled, Vent Mode Cancelled, Inspiratory Time Cancelled, Expiratory Time Cancelled, Tidal Volume Cancelled, POC PEEP Cancelled, POC Pressure Suppt Cancelled, Pressure Control Cancelled, Pressure High Cancelled, Pressure Low Cancelled, Time High Cancelled, Time Low Cancelled, EPAP Cancelled, IPAP Cancelled, Blood Gas Comments Cancelled, Blood Gas Notified Whom Cancelled, Blood Gas Notified Time Cancelled 05/15/20 18:30: Lactic Acid 3.4 H* 05/15/20 22:15: Ammonia 22.0 05/15/20 22:15: Lactic Acid 3.2 H* 05/15/20 22:37: Specimen Type ART, Sample Site L Radial, pH 7.47 H, Bicarbonate Actual 25.6, Total CO2 27, Base Excess 2, O2 Saturation 97, O2 % 30, ABG pCO2 34.9 L, ABG pO2 80, Channing Test Positive, Respiration Rate 12, O2 Delivery Device BiPAP, POC PEEP 10 05/16/20 00:55: Troponin I 0.124 H 05/16/20 03:55: WBC 15.5 H, RBC 4.76, Hgb 13.9, Hct 44.0, MCV 92.4, MCH 29.2, MCHC 31.6 L, RDW Std Deviation 60.4 H, RDW Coeff of [place] 18.7 H, Plt Count 377, MPV 9.5, Immature Gran % (Auto) 0.900, Neut % (Auto) 84.4 H, Lymph % (Auto) 3.6 L, Warrick % (Auto) 10.6 H, Eos % (Auto) 0.1, Baso % (Auto) 0.4, Absolute Neuts (auto) 13.1 H, Absolute Lymphs (auto) 0.55 L, Nucleated RBC % 0, Differential Comment SCANNED, Diff Path Review May foll, Polychromasia RARE, Anisocytosis RARE, Macrocytosis RARE 05/16/20 03:55: Troponin I 0.122 H 05/16/20 03:55: Sodium 140, Potassium 3.4 L, Chloride 103, Carbon Dioxide 30.0, Anion Gap 7, BUN 28 H, Creatinine 1.13 H, Estim Creat Clear Calc 37.15, Est GFR (MDRD) Af Amer 60, Est GFR (MDRD) Non-Af 50 L, BUN/Creatinine Ratio 24.8 H, Glucose 167 H, Calcium 9.1, Total Bilirubin 2.70 H, AST 22, ALT 20, Alkaline Phosphatase 110, Total Protein 6.4, Albumin 2.9 L, Globulin 3.5, Albumin/Globulin Ratio 0.8 L, TSH 1.68 05/16/20 06:45: Troponin I 0.091 H 05/16/20 06:45: POC Glucose 141 H 05/16/20 : Triglycerides 82, Cholesterol 106, LDL Cholesterol 41, VLDL Cholesterol 16, HDL Cholesterol 49 05/16/20 : Hemoglobin A1c 7.0 H Clinical Impression(s) from Imaging Studies Brain CT 05/15/20 16:19 IMPRESSION: 1. No evidence of acute intracranial or calvarial abnormality. 2. Ill-defined area of hypodensity with associated calcifications in the white matter of the right posterior parietal lobe. No evidence of mass effect or edema. Question slow growing mass. MRI is recommended. N.B. : The above information has been verbally conveyed by Wojciech Hassan DO to Brett Tejeda MD, on 05/15/2020 16:50:03 (ET). Electronically Signed: Wojciech Hassan DO at 16:51 EST Tel [phone], Service support , ADDENDUM: 05/15/20 7954 IMPRESSION: 1. No evidence of acute intracranial or calvarial abnormality. 2. Ill-defined area of hypodensity with associated calcifications in the white matter of the right posterior parietal lobe. No evidence of mass effect or edema. Question slow growing mass. MRI is recommended. N.B. : The above information has been verbally conveyed by Wojciech Hassan DO to Brett Tejeda MD, on 05/15/2020 16:50:03 (ET). Electronically Signed: Wojciech Hassan DO at 16:51 EST Tel [phone], Service support , Cervical Spine CT 05/15/20 16:21 IMPRESSION: Degenerative changes of the cervical spine. There is no acute fracture or subluxation. Electronically Signed: Wojciech Hassan DO at 16:57 EST Tel [phone], Service support , Facial/Sinus 05/15/20 16:21 IMPRESSION: No evidence of facial bone fracture. Electronically Signed: Wojciech Hassan DO at 16:52 EST Tel [phone], Service support , Chest X-Ray 05/15/20 16:54 IMPRESSION: Findings suggestive of cardiomegaly with worsening CHF when compared to prior study. Electronically Signed: Wojciech Hassan DO at 17:13 EST Tel [phone], Service support , Pelvis X-Ray 05/15/20 16:54 IMPRESSION: Degenerative changes in lumbar spine and bilateral hips. There is no acute fracture or dislocation. Electronically Signed: Wojciech Hassan DO at 17:14 EST Tel [phone], Service support , Chest CTA 05/15/20 17:22 IMPRESSION: 1. No evidence of pulmonary embolus. 2. No aortic dissection or aneurysm. There are atherosclerotic changes of the thoracic aorta without aneurysm. 3. Cardiomegaly with cardiac pacemaker and aortic valve replacement. There is reflux of contrast into the IVC and hepatic veins secondary to right heart failure. 4. Diffuse interstitial changes throughout the lungs suggestive of mild congestive change. Associated pleural effusions. 5. Near complete resolution of the patchy right upper lobe pulmonary infiltrate seen on the previous examination. 6. Fatty infiltration of the liver. Electronically Signed: Wojciech Hassan DO at 18:59 EST Tel [phone], Service support , Hand X-Ray 05/15/20 17:22 IMPRESSION: Degenerative joint disease of the hand and wrist, as described above. No acute fracture or dislocation. Electronically Signed: Wojciech Hassan DO at 18:43 EST Tel [phone], Service support , Forearm X-Ray 05/15/20 17:55 IMPRESSION: No acute fracture or dislocation. Electronically Signed: Wojciech Hassan DO at 18:42 EST Tel [phone], Service support , Current Medications Albuterol Sulfate (Albuterol 2.5 Mg/3 Ml Vial.Neb.) 2.5 mg INHALATION Q2H PRN PRN PRN Reason: SOB/Wheezing Albuterol Sulfate (Albuterol 2.5 Mg/3 Ml Vial.Neb.) 2.5 mg INHALATION Q6HWA.RT [facility] Last Admin: 05/16/20 13:00 Dose: 2.5 mg Documented by: Aspirin (Aspirin 300 Mg Suppository) 300 mg RC DAILY [facility] Last Admin: 05/16/20 06:42 Dose: 300 mg Documented by: Budesonide (Budesonide Respules 0.5 Mg/2 Ml Ampul.Neb.) 0.5 mg INHALATION Q12H.RT [facility] Last Admin: 05/16/20 07:20 Dose: 0.5 mg Documented by: Furosemide (Furosemide 40 Mg/4 Ml Vial) 40 mg IV BID@1000,1800 [facility] Last Admin: 05/16/20 09:46 Dose: 40 mg Documented by: Hydralazine HCl (Hydralazine 20 Mg/Ml Vial) 5 mg IV Q30M PRN PRN Reason: to maintain BP goals Pantoprazole Sodium 40 mg/ (Sodium Chloride) 110 mls @ 330 mls/hr IV Q24 [facility] Last Infusion: 05/16/20 11:44 Dose: Infused Documented by: Sodium Chloride () 250 mls @ 15 mls/hr IV .[id number] PRN PRN Reason: Saline Flush Last Infusion: 05/16/20 10:30 Dose: 15 mls/hr Documented by: Sodium Chloride () 250 mls @ 15 mls/hr IV .[id number] PRN PRN Reason: Additional IVPB Infusion Levofloxacin (Levaquin Iv) 250 mg in 50 mls @ 50 mls/hr IV Q24H JAZMIN Labetalol HCl (Labetalol (Prefilled) 20 Mg/4 Ml) 10 - 20 mg IV Q10M PRN PRN PRN Reason: to Maintain BP Goals Ondansetron HCl (Ondansetron 4 Mg/2 Ml Vial) 4 mg IV Q8H PRN PRN PRN Reason: NAUSEA/VOMITING Sodium Chloride (0.9% Saline Lock 10 Ml Syringe) 10 - 40 ml IV UD PRN PRN Reason: SALINE FLUSH Last Admin: 05/16/20 01:42 Dose: 40 ml Documented by: STROKE Vital Signs/Narrative: Vital Signs Temp Pulse Resp BP Pulse Ox 05/16/20 13:02 60 23 H 94 05/16/20 12:00 37.1 C 60 28 H 93/62 98 05/16/20 11:00 37.3 C 60 23 H 106/66 92 05/16/20 10:00 37.2 C 60 29 H 123/57 H 92 Medical Necessity - Tobacco Use Smoking Status: Smoker, status unknown Assessment/Plan All Active Problems (Last Reviewed 05/16/20 @ 01:[address] Merlin Espinosa MD) COVID-19 (Acute) Multiple skin tears (Acute) Hypoxia (Acute) Fall (Acute) Facial contusion (Acute) CHF (congestive heart failure) (Acute) Acute hypoxemic respiratory failure (Acute) Dyspnea on exertion (Resolved) Elevated troponin (Resolved) Epistaxis (Resolved) Iron deficiency anemia (Resolved) 1. acute hypoxic respiratory failure * 2/2 #2 * tolerating NC * on levofloxacin 2. acute HFpEF * EF 60% * complicated by PAH with RVSP 60mmHg * on IV furosemide 3. Acute CVA, suspect * right sided deficits and aphasia * MRI pending * on ASA * add statin 4. encephalopathy * probably 2/2 CVA 5. Elevated troponin * likely d/t demand ischemia * monitor 6. lactic acidosis * 2/2 hypoxia 7. VTE prophylaxis: SCDs Inpatient E&M: 62281 Subs Hosp L3
--- NOTE | 2020-05-16 15:16 | NURSING ---
Mid-scan pt starts moving left arm and leg, lab support tech Opal enters MRI to reorient pt and make her aware she's almost done with scanning. Opal asks if patient can handle a few more minutes and pt states yes
--- NOTE | 2020-05-16 16:41 | TELEMED_ITS ---
[facility] has confirmed receipt of a request for visit. This document confirms receipt of the order initiating the consult. To find the results of the consultation, please view the patient's reports for the scanned Telemed Consult.
[2020-05-16] MEDS: levoFLOXacin IV 250 MG/50 ML BAG 50 MG IV (19:53)
--- NOTE | 2020-05-16 20:13 | NURSING ---
2004-Spoke with Dr. Álvarez, the neurologist, on [facility]. He assessed patient and went over her scans that were done today. He has no recommendations at this time and stated that he will speak with the hospitalist on his consult.
[2020-05-17] VITALS (18 sets, daily range): BP systolic 106–131; BP diastolic 50–73; PULSE 60–72; RESP 12–29; TEMP 36.7–37.5; O2SAT 92–987; BMI 32.1
[2020-05-17 03:40] LABS: Absolute Lymphocyte Count 0.68 X10^3/uL (0.83-4.51); Absolute Neutrophil Count 10.4 X10^3/uL (2.0-7.7); Basophil# 0.08 X10^3/uL; Basophil% 0.6 % (0-1); Eosinophil# 0.03 X10^3/uL; Eosinophils% 0.2 % (0-5); Hematocrit 43.7 % (37-47); Hemoglobin 13.9 g/dL (12.0-15.0); Lymphocyte # 0.68 X10^3/ul (4.0); Lymphocyte % 5.2 % (19-41); Mean Corp Hgb Conc 31.8 g/dL (32-36); Mean Corpuscular Hgb 29.3 pg (27.0-32.0); Mean Platelet Vol. 9.6 fl (6.2-12.0); Monocyte# 1.58 X10^3/uL; Monocyte% 12.2 % (0-10); NRBC Flagged by Analyzer 0 % (0-5); Neutrophil # 10.43 X10^3/uL (2.7-7.7); Neutrophil % 80.5 % (47-70); POSITIVE DIFFERENTIAL YES; Platelet Count 373 K/mm3 (150-450); RBC Distribution Width SD 61.3 fl (35.1-43.9); Red Blood Count 4.75 M/mm3 (4.2-5.4)
[2020-05-17 03:41] LABS: Differential Indicated SCAN CRITERIA MET
[2020-05-17 03:57] LABS: ALB/GLOB Ratio 0.8 RATIO (0.9-2.4); AST(SGOT) 21 U/L (15-37); Alanine Aminotransfer ALT/SGPT 18 U/L (13-56); Albumin, Serum 2.8 g/dL (3.2-5.0); Alkaline Phosphatase 105 U/L (45-117); Anion Gap 6 (5-15); BUN 25 mg/dL (7-18); BUN/Creat Ratio 22.5 RATIO (10-20); Calcium,Total 9.2 mg/dL (8.5-10.1); Chloride 104 mmol/L (98-107); Creatinine, Serum 1.11 mg/dL (0.55-1.02); EST Glomerular Filtration Rate 51 mL/min (>60); Est Glom Filt Rate - Afr Amer 62 mL/min (>60); Estimated Creatinine Clearance 37.82 ml/min; Globulin 3.7 g/dL (2.2-4.2); Glucose 125 mg/dL (74-106); Potassium 3.7 mmol/L (3.5-5.1); Protein, Total 6.5 g/dL (6.4-8.2); Sodium Level 138 mmol/L (136-145)
[2020-05-17 04:03] LABS: Differential Comment SCANNED; Macrocytosis RARE; Polychromasia RARE
[2020-05-17] MEDS: Albuterol 2.5 MG/3 ML VIAL.NEB. INHALATION ×2 (06:49→12:46)
[2020-05-17] MEDS: Budesonide Respules 0.5 MG/2 ML AMPUL.NEB. INHALATION (06:49)
--- NOTE | 2020-05-17 06:51 | PN_ITS ---
Subjective: Patient did well overnight. No acute issues were reported. Patient did have an MRI confirming suspicion for stroke. Patient is much more interactive today and is denying any pain. Oxygen demands have continued to improve. General: Alert, Cooperative, No apparent distress, - - Mild dysarthria. Obese. HEENT: Atraumatic, PERRLA, EOMI, Normocephalic, - - No facial droop appreciated Oral: Moist Mucosa, No Gingival or Mucosal Lesions/ Ulcerations Neck: Supple, No JVD, No Nodes, Trachea Midline Lungs: No rhonchi, No wheeze, No rales, Diminished, - - Less cough with deep inhalation Cardiovascular: Regular rate, Regular Rhythm, Normal S1, Normal S2, No murmurs, No rub noted, No Gallop Abdomen: Bowel Sounds Present, Soft, Non Tender, Non-Distended Extremities: No clubbing, No cyanosis, No edema Skin: No rashes, No breakdown Musculoskeletal: No Tenderness to Palpation of Joints or Extremities Lymphatic: No Cervical, Supraclavicular, or Inguinal Adenopathy Neurological: - - Right-sided weakness. Dysarthria is improved compared to yesterday. Psych/Mental Status: Normal Affect, Appropriate Vital Signs Temp Pulse Resp BP Pulse Ox 36.8 C 60 18 129/73 H 987 05/17/20 06:00 05/17/20 06:00 05/17/20 06:00 05/17/20 06:00 05/17/20 06:00 Oxygen Flow Rate (L/min) 3 Oxygen Delivery Method Nasal Cannula Weight: 85 kg Body Mass Index (BMI) 32.1 Finger Stick Blood Glucose 137 Intake and Output for Last 24 Hours 05/15/20 05/16/20 05/17/20 23:59 23:59 23:59 Intake Total 1300 / 1300 1500.25 / 1702.75 322.5 / 322.5 Output Total 500 / 500 1575 / 1575 275 / 275 Balance 800 / 800 -74.75 / 127.75 47.5 / 47.5 Labs (Last 48 Hours) 05/15/20 05/15/20 05/15/20 16:09 16:20 16:20 WBC 18.8 H RBC 5.42 H Hgb 15.9 H Hct 49.8 H MCV 91.9 MCH 29.3 MCHC 31.9 L RDW Std Deviation 59.8 H RDW Coeff of [place] 18.9 H Plt Count 487 H MPV 9.8 Immature Gran % (Auto) 1.800 H Neut % (Auto) 81.9 H Lymph % (Auto) 3.9 L [place] % (Auto) 11.7 H Eos % (Auto) 0.1 Baso % (Auto) 0.6 Absolute Neuts (auto) 15.4 H Absolute Lymphs (auto) 0.74 L Nucleated RBC % 0.2 Differential Comment SEE COMMENT Diff Path Review May foll Platelet Estimate SLT INC RBC Morphology N CHROM Polychromasia Anisocytosis RARE Macrocytosis RARE PT 15.7 H INR 1.3 APTT 24.1 Specimen Type Sample Site pH Bicarbonate Actual Total CO2 Base Excess O2 Saturation O2 % ABG pCO2 ABG pO2 Channing Test Respiration Rate O2 Delivery Device Liter Flow Minute Volume Vent Mode Inspiratory Time Expiratory Time Tidal Volume POC PEEP POC Pressure Suppt Pressure Control Pressure High Pressure Low Time High Time Low EPAP IPAP Blood Gas Comments Blood Gas Notified Whom Blood Gas Notified Time Sodium Potassium Chloride Carbon Dioxide Anion Gap BUN Creatinine Estim Creat Clear Calc Est GFR (MDRD) Af Amer Est GFR (MDRD) Non-Af BUN/Creatinine Ratio Glucose Hemoglobin A1c Lactic Acid Calcium Total Bilirubin AST ALT Alkaline Phosphatase Ammonia Total Creatine Kinase Troponin I B-Natriuretic Peptide Total Protein Albumin Globulin Albumin/Globulin Ratio Triglycerides Cholesterol LDL Cholesterol VLDL Cholesterol HDL Cholesterol Lipase Vitamin B12 TSH Urine Color Urine Clarity Urine pH Ur Specific [place] Urine Protein Urine Glucose (UA) Urine Ketones Urine Occult Blood Urine Nitrite Urine Bilirubin Urine Urobilinogen Ur Leukocyte Esterase Urine RBC Urine WBC Ur Squamous Epith Cells Urine Bacteria Hyaline Casts Urine Mucus POC Glucose 136 H 05/15/20 05/15/20 05/15/20 16:20 16:20 16:20 WBC RBC Hgb Hct MCV MCH MCHC RDW Std Deviation RDW Coeff of [place] Plt Count MPV Immature Gran % (Auto) Neut % (Auto) Lymph % (Auto) [place] % (Auto) Eos % (Auto) Baso % (Auto) Absolute Neuts (auto) Absolute Lymphs (auto) Nucleated RBC % Differential Comment Diff Path Review Platelet Estimate RBC Morphology Polychromasia Anisocytosis Macrocytosis PT INR APTT Specimen Type Sample Site pH Bicarbonate Actual Total CO2 Base Excess O2 Saturation O2 % ABG pCO2 ABG pO2 Channing Test Respiration Rate O2 Delivery Device Liter Flow Minute Volume Vent Mode Inspiratory Time Expiratory Time Tidal Volume POC PEEP POC Pressure Suppt Pressure Control Pressure High Pressure Low Time High Time Low EPAP IPAP Blood Gas Comments Blood Gas Notified Whom Blood Gas Notified Time Sodium 137 Potassium 3.7 Chloride 99 Carbon Dioxide 29.0 Anion Gap 9 BUN 31 H Creatinine 1.23 H Estim Creat Clear Calc 35.56 Est GFR (MDRD) Af Amer 55 L Est GFR (MDRD) Non-Af 45 L BUN/Creatinine Ratio 25.2 H Glucose 154 H Hemoglobin A1c Lactic Acid Calcium 10.4 H Total Bilirubin 2.10 H AST 24 ALT 24 Alkaline Phosphatase 141 H Ammonia Total Creatine Kinase 57 Troponin I 0.115 H B-Natriuretic Peptide 345.6 H Total Protein 7.8 Albumin 3.7 Globulin 4.1 Albumin/Globulin Ratio 0.9 Triglycerides Cholesterol LDL Cholesterol VLDL Cholesterol HDL Cholesterol Lipase 166 Vitamin B12 TSH Urine Color Urine Clarity Urine pH Ur Specific [place] Urine Protein Urine Glucose (UA) Urine Ketones Urine Occult Blood Urine Nitrite Urine Bilirubin Urine Urobilinogen Ur Leukocyte Esterase Urine RBC Urine WBC Ur Squamous Epith Cells Urine Bacteria Hyaline Casts Urine Mucus POC Glucose 05/15/20 05/15/20 05/15/20 16:20 16:29 16:58 WBC RBC Hgb Hct MCV MCH MCHC RDW Std Deviation RDW Coeff of [place] Plt Count MPV Immature Gran % (Auto) Neut % (Auto) Lymph % (Auto) [place] % (Auto) Eos % (Auto) Baso % (Auto) Absolute Neuts (auto) Absolute Lymphs (auto) Nucleated RBC % Differential Comment Diff Path Review Platelet Estimate RBC Morphology Polychromasia Anisocytosis Macrocytosis PT INR APTT Specimen Type ART Sample Site L Radial pH 7.45 Bicarbonate Actual 25.0 Total CO2 26 Base Excess 1 O2 Saturation 89 L O2 % ABG pCO2 35.7 ABG pO2 52 L Channing Test Positive Respiration Rate O2 Delivery Device Cannula Liter Flow 3.0 Minute Volume Vent Mode Inspiratory Time Expiratory Time Tidal Volume POC PEEP POC Pressure Suppt Pressure Control Pressure High Pressure Low Time High Time Low EPAP IPAP Blood Gas Comments Blood Gas Notified Whom Blood Gas Notified Time Sodium Potassium Chloride Carbon Dioxide Anion Gap BUN Creatinine Estim Creat Clear Calc Est GFR (MDRD) Af Amer Est GFR (MDRD) Non-Af BUN/Creatinine Ratio Glucose Hemoglobin A1c Lactic Acid Calcium Total Bilirubin AST ALT Alkaline Phosphatase Ammonia Total Creatine Kinase Troponin I B-Natriuretic Peptide Total Protein Albumin Globulin Albumin/Globulin Ratio Triglycerides Cholesterol LDL Cholesterol VLDL Cholesterol HDL Cholesterol Lipase Vitamin B12 467 TSH Urine Color Yellow Urine Clarity Clear Urine pH 5.0 Ur Specific [place] 1.020 Urine Protein 30 H Urine Glucose (UA) Normal Urine Ketones Negative Urine Occult Blood Negative Urine Nitrite Negative Urine Bilirubin Negative Urine Urobilinogen 1 H Ur Leukocyte Esterase 25 H Urine RBC 0 SEEN Urine WBC 0 SEEN Ur Squamous Epith Cells 0 SEEN Urine Bacteria 1+ Hyaline Casts 0-5 SEEN Urine Mucus 0 SEEN POC Glucose 05/15/20 05/15/20 05/15/20 16:58 18:30 22:15 WBC RBC Hgb Hct MCV MCH MCHC RDW Std Deviation RDW Coeff of [place] Plt Count MPV Immature Gran % (Auto) Neut % (Auto) Lymph % (Auto) [place] % (Auto) Eos % (Auto) Baso % (Auto) Absolute Neuts (auto) Absolute Lymphs (auto) Nucleated RBC % Differential Comment Diff Path Review Platelet Estimate RBC Morphology Polychromasia Anisocytosis Macrocytosis PT INR APTT Specimen Type Cancelled Sample Site Cancelled pH Cancelled Bicarbonate Actual Cancelled Total CO2 Cancelled Base Excess Cancelled O2 Saturation Cancelled O2 % Cancelled ABG pCO2 Cancelled ABG pO2 Cancelled Channing Test Cancelled Respiration Rate Cancelled O2 Delivery Device Cancelled Liter Flow Cancelled Minute Volume Cancelled Vent Mode Cancelled Inspiratory Time Cancelled Expiratory Time Cancelled Tidal Volume Cancelled POC PEEP Cancelled POC Pressure Suppt Cancelled Pressure Control Cancelled Pressure High Cancelled Pressure Low Cancelled Time High Cancelled Time Low Cancelled EPAP Cancelled IPAP Cancelled Blood Gas Comments Cancelled Blood Gas Notified Whom Cancelled Blood Gas Notified Time Cancelled Sodium Potassium Chloride Carbon Dioxide Anion Gap BUN Creatinine Estim Creat Clear Calc Est GFR (MDRD) Af Amer Est GFR (MDRD) Non-Af BUN/Creatinine Ratio Glucose Hemoglobin A1c Lactic Acid 3.4 H* Calcium Total Bilirubin AST ALT Alkaline Phosphatase Ammonia 22.0 Total Creatine Kinase Troponin I B-Natriuretic Peptide Total Protein Albumin Globulin Albumin/Globulin Ratio Triglycerides Cholesterol LDL Cholesterol VLDL Cholesterol HDL Cholesterol Lipase Vitamin B12 TSH Urine Color Urine Clarity Urine pH Ur Specific [place] Urine Protein Urine Glucose (UA) Urine Ketones Urine Occult Blood Urine Nitrite Urine Bilirubin Urine Urobilinogen Ur Leukocyte Esterase Urine RBC Urine WBC Ur Squamous Epith Cells Urine Bacteria Hyaline Casts Urine Mucus POC Glucose 05/15/20 05/15/20 05/16/20 22:15 22:37 00:55 WBC RBC Hgb Hct MCV MCH MCHC RDW Std Deviation RDW Coeff of [place] Plt Count MPV Immature Gran % (Auto) Neut % (Auto) Lymph % (Auto) [place] % (Auto) Eos % (Auto) Baso % (Auto) Absolute Neuts (auto) Absolute Lymphs (auto) Nucleated RBC % Differential Comment Diff Path Review Platelet Estimate RBC Morphology Polychromasia Anisocytosis Macrocytosis PT INR APTT Specimen Type ART Sample Site L Radial pH 7.47 H Bicarbonate Actual 25.6 Total CO2 27 Base Excess 2 O2 Saturation 97 O2 % 30 ABG pCO2 34.9 L ABG pO2 80 Channing Test Positive Respiration Rate 12 O2 Delivery Device BiPAP Liter Flow Minute Volume Vent Mode Inspiratory Time Expiratory Time Tidal Volume POC PEEP 10 POC Pressure Suppt Pressure Control Pressure High Pressure Low Time High Time Low EPAP IPAP Blood Gas Comments Blood Gas Notified Whom Blood Gas Notified Time Sodium Potassium Chloride Carbon Dioxide Anion Gap BUN Creatinine Estim Creat Clear Calc Est GFR (MDRD) Af Amer Est GFR (MDRD) Non-Af BUN/Creatinine Ratio Glucose Hemoglobin A1c Lactic Acid 3.2 H* Calcium Total Bilirubin AST ALT Alkaline Phosphatase Ammonia Total Creatine Kinase Troponin I 0.124 H B-Natriuretic Peptide Total Protein Albumin Globulin Albumin/Globulin Ratio Triglycerides Cholesterol LDL Cholesterol VLDL Cholesterol HDL Cholesterol Lipase Vitamin B12 TSH Urine Color Urine Clarity Urine pH Ur Specific [place] Urine Protein Urine Glucose (UA) Urine Ketones Urine Occult Blood Urine Nitrite Urine Bilirubin Urine Urobilinogen Ur Leukocyte Esterase Urine RBC Urine WBC Ur Squamous Epith Cells Urine Bacteria Hyaline Casts Urine Mucus POC Glucose 05/16/20 05/16/20 05/16/20 03:55 03:55 03:55 WBC 15.5 H RBC 4.76 Hgb 13.9 Hct 44.0 MCV 92.4 MCH 29.2 MCHC 31.6 L RDW Std Deviation 60.4 H RDW Coeff of [place] 18.7 H Plt Count 377 MPV 9.5 Immature Gran % (Auto) 0.900 Neut % (Auto) 84.4 H Lymph % (Auto) 3.6 L [place] % (Auto) 10.6 H Eos % (Auto) 0.1 Baso % (Auto) 0.4 Absolute Neuts (auto) 13.1 H Absolute Lymphs (auto) 0.55 L Nucleated RBC % 0 Differential Comment SCANNED Diff Path Review May foll Platelet Estimate RBC Morphology Polychromasia RARE Anisocytosis RARE Macrocytosis RARE PT INR APTT Specimen Type Sample Site pH Bicarbonate Actual Total CO2 Base Excess O2 Saturation O2 % ABG pCO2 ABG pO2 Channing Test Respiration Rate O2 Delivery Device Liter Flow Minute Volume Vent Mode Inspiratory Time Expiratory Time Tidal Volume POC PEEP POC Pressure Suppt Pressure Control Pressure High Pressure Low Time High Time Low EPAP IPAP Blood Gas Comments Blood Gas Notified Whom Blood Gas Notified Time Sodium 140 Potassium 3.4 L Chloride 103 Carbon Dioxide 30.0 Anion Gap 7 BUN 28 H Creatinine 1.13 H Estim Creat Clear Calc 37.15 Est GFR (MDRD) Af Amer 60 Est GFR (MDRD) Non-Af 50 L BUN/Creatinine Ratio 24.8 H Glucose 167 H Hemoglobin A1c Lactic Acid Calcium 9.1 Total Bilirubin 2.70 H AST 22 ALT 20 Alkaline Phosphatase 110 Ammonia Total Creatine Kinase Troponin I 0.122 H B-Natriuretic Peptide Total Protein 6.4 Albumin 2.9 L Globulin 3.5 Albumin/Globulin Ratio 0.8 L Triglycerides Cholesterol LDL Cholesterol VLDL Cholesterol HDL Cholesterol Lipase Vitamin B12 TSH 1.68 Urine Color Urine Clarity Urine pH Ur Specific [place] Urine Protein Urine Glucose (UA) Urine Ketones Urine Occult Blood Urine Nitrite Urine Bilirubin Urine Urobilinogen Ur Leukocyte Esterase Urine RBC Urine WBC Ur Squamous Epith Cells Urine Bacteria Hyaline Casts Urine Mucus POC Glucose 05/16/20 05/16/20 05/16/20 06:45 06:45 Unknown WBC RBC Hgb Hct MCV MCH MCHC RDW Std Deviation RDW Coeff of [place] Plt Count MPV Immature Gran % (Auto) Neut % (Auto) Lymph % (Auto) [place] % (Auto) Eos % (Auto) Baso % (Auto) Absolute Neuts (auto) Absolute Lymphs (auto) Nucleated RBC % Differential Comment Diff Path Review Platelet Estimate RBC Morphology Polychromasia Anisocytosis Macrocytosis PT INR APTT Specimen Type Sample Site pH Bicarbonate Actual Total CO2 Base Excess O2 Saturation O2 % ABG pCO2 ABG pO2 Channing Test Respiration Rate O2 Delivery Device Liter Flow Minute Volume Vent Mode Inspiratory Time Expiratory Time Tidal Volume POC PEEP POC Pressure Suppt Pressure Control Pressure High Pressure Low Time High Time Low EPAP IPAP Blood Gas Comments Blood Gas Notified Whom Blood Gas Notified Time Sodium Potassium Chloride Carbon Dioxide Anion Gap BUN Creatinine Estim Creat Clear Calc Est GFR (MDRD) Af Amer Est GFR (MDRD) Non-Af BUN/Creatinine Ratio Glucose Hemoglobin A1c Lactic Acid Calcium Total Bilirubin AST ALT Alkaline Phosphatase Ammonia Total Creatine Kinase Troponin I 0.091 H B-Natriuretic Peptide Total Protein Albumin Globulin Albumin/Globulin Ratio Triglycerides 82 Cholesterol 106 LDL Cholesterol 41 VLDL Cholesterol 16 HDL Cholesterol 49 Lipase Vitamin B12 TSH Urine Color Urine Clarity Urine pH Ur Specific [place] Urine Protein Urine Glucose (UA) Urine Ketones Urine Occult Blood Urine Nitrite Urine Bilirubin Urine Urobilinogen Ur Leukocyte Esterase Urine RBC Urine WBC Ur Squamous Epith Cells Urine Bacteria Hyaline Casts Urine Mucus POC Glucose 141 H 05/16/20 05/17/20 05/17/20 Unknown 03:30 03:30 WBC 13.0 H RBC 4.75 Hgb 13.9 Hct 43.7 MCV 92.0 MCH 29.3 MCHC 31.8 L RDW Std Deviation 61.3 H RDW Coeff of [place] 19.0 H Plt Count 373 MPV 9.6 Immature Gran % (Auto) 1.300 H Neut % (Auto) 80.5 H Lymph % (Auto) 5.2 L [place] % (Auto) 12.2 H Eos % (Auto) 0.2 Baso % (Auto) 0.6 Absolute Neuts (auto) 10.4 H Absolute Lymphs (auto) 0.68 L Nucleated RBC % 0 Differential Comment SCANNED Diff Path Review May foll Platelet Estimate RBC Morphology Polychromasia RARE Anisocytosis Macrocytosis RARE PT INR APTT Specimen Type Sample Site pH Bicarbonate Actual Total CO2 Base Excess O2 Saturation O2 % ABG pCO2 ABG pO2 Channing Test Respiration Rate O2 Delivery Device Liter Flow Minute Volume Vent Mode Inspiratory Time Expiratory Time Tidal Volume POC PEEP POC Pressure Suppt Pressure Control Pressure High Pressure Low Time High Time Low EPAP IPAP Blood Gas Comments Blood Gas Notified Whom Blood Gas Notified Time Sodium 138 Potassium 3.7 Chloride 104 Carbon Dioxide 28.0 Anion Gap 6 BUN 25 H Creatinine 1.11 H Estim Creat Clear Calc 37.82 Est GFR (MDRD) Af Amer 62 Est GFR (MDRD) Non-Af 51 L BUN/Creatinine Ratio 22.5 H Glucose 125 H Hemoglobin A1c 7.0 H Lactic Acid Calcium 9.2 Total Bilirubin 2.00 H AST 21 ALT 18 Alkaline Phosphatase 105 Ammonia Total Creatine Kinase Troponin I B-Natriuretic Peptide Total Protein 6.5 Albumin 2.8 L Globulin 3.7 Albumin/Globulin Ratio 0.8 L Triglycerides Cholesterol LDL Cholesterol VLDL Cholesterol HDL Cholesterol Lipase Vitamin B12 TSH Urine Color Urine Clarity Urine pH Ur Specific [place] Urine Protein Urine Glucose (UA) Urine Ketones Urine Occult Blood Urine Nitrite Urine Bilirubin Urine Urobilinogen Ur Leukocyte Esterase Urine RBC Urine WBC Ur Squamous Epith Cells Urine Bacteria Hyaline Casts Urine Mucus POC Glucose Clinical Impression(s) from Imaging Studies Brain MRI 05/16/20 05:00 IMPRESSION: Involutional changes of the brain, as described above. Large acute/subacute infarct of the medial left temporal lobe and left thalamus per Electronically Signed: Ronald Zavaleta MD at 16:34 EST Tel , Service support , ADDENDUM: 05/16/20 1733 IMPRESSION: Involutional changes of the brain, as described above. Large acute/subacute infarct of the medial left temporal lobe and left thalamus per N.B. : The above information has been verbally conveyed by Ronald Zavaleta MD to Dr Naga MD, on 05/16/2020 17:26:41 (ET). Electronically Signed: Ronald Zavaleta MD at 16:34 EST Tel , Service support , Neck MRA 05/16/20 05:09 IMPRESSION: 1. No carotid stenosis. 2. Patent right vertebral artery. 3. Poorly visualized left vertebral artery which may be hypoplastic or with spasm. Electronically Signed: Ronald Zavaleta MD at 16:42 EST Tel , Service support , Head MRA 05/16/20 05:12 IMPRESSION: 1. Nonvisualization of the left vertebral artery which may be occluded. 2. Abrupt occlusion of the P1 segment the left posterior cerebral artery consistent with acute infarct. Electronically Signed: Ronald Zavaleta MD at 16:37 EST Tel , Service support , Medical Necessity - Tobacco Use Smoking Status: Smoker, status unknown Assessment/Plan All Active Problems (Last Reviewed 05/16/20 @ 01:[address] Merlin Espinosa MD) COVID-19 (Acute) Multiple skin tears (Acute) Hypoxia (Acute) Fall (Acute) Facial contusion (Acute) CHF (congestive heart failure) (Acute) Acute hypoxemic respiratory failure (Acute) Dyspnea on exertion (Resolved) Elevated troponin (Resolved) Epistaxis (Resolved) Iron deficiency anemia (Resolved) RECOMMENDATIONS: 1. Continue with stroke work-up 2. Continue active diuresis as tolerated 3. Aggressive potassium repletion if indicated 4. Continue BiPAP with sleep. Will likely need a repeat sleep study as an outpatient 5. Wound care assessment of skin tears 6. May sign off from a pulmonary perspective if patient is able to tolerate room air later today IMPRESSIONS: 1. Acute hypoxemic respiratory failure secondary to probable CHF Patient does have a history of COVID-19 in the past, but also has an extensive cardiac history. Findings on CT scan appear to be more consistent with congestive heart failure. Patient has received Lasix and is on minimal oxygen requirements by BiPAP. Patient does have elevated right-sided pressures with moderate RV dysfunction and would tolerate from volume optimization from my perspective. We will continue with Lasix as tolerated. 2. Metabolic encephalopathy/acute CVA MRI does confirm a large CVA. However, patient's mental status is significantly improving over the last 24 hours also. Clinical suspicion for a combination of metabolic encephalopathy and acute CVA leading to current findings. Patient is currently on the stroke protocol and tolerating well. 3. Leukocytosis/lactic acidosis Patient's fall likely secondary to acute CVA. Patient does have multiple skin tears and was found down for quite some time while hypoxic. Patient has been placed on empiric antibiotics. Continue to monitor. Reasonable to complete a 5-day course of antibiotics 4. CELESTINO/skin tear/diabetes mellitus/CKD stage III/contusions from fall Complicates care, management, recovery and prognosis. Therapies have been ordered. Would benefit from wound care evaluation. Patient has passed the swallow evaluation and will be started on a p.o. diet. Inpatient E&M: 71307 Subs Hosp L2
[2020-05-17] MEDS: Aspirin 325 MG Tablet PO (09:19)
[2020-05-17] MEDS: Furosemide 40 MG/4 ML Vial IV (09:19)
--- NOTE | 2020-05-17 10:49 | CASEMGMT ---
Social Work SW spoke with Pt daughter Megan Curtis who states that pt does have a living will and health care POA naming Megan Curtis. Dgt will bring a copy to hospital for pt medical record. [facility]
--- NOTE | 2020-05-17 10:51 | CASEMGMT ---
Addendum entered by Maddi Landeros 05/17/20 11:10: Social Work SW met with pt and introduced self and role of SW. Discussed discharge plans with pt and explained that Inpatient Rehab at [facility] would be able to accept her. Also explained that ELLEN spoke with dgcecily Guzman about d/c plans. Pt able to shake head yes to going to [facility]. VM left with Megan notifying that [facility] can accept pt when medically ready. Plan: Inpatient Rehab, when medically ready [facility] Original Note: Social Work SW spoke with pt daughter Megan Curtis regarding discharge planning. Megan is understanding that pt will need rehabilitation prior to return home. SW discuss differences between Inpatient Rehab and SNF. Megan is agreeable with pt discharge to Inpatient Rehabilitation. ELLEN attempted to provide list of [place] providers including quality and resource use data, however, Megan declined this information stating that she would prefer [facility] if available. Phone call to Melissa in [place] and they are able to accept pt when medically ready. Pt is currently in procedure, ELLEN will attempt to meet with pt when available. Plan: Inpatient Rehab, when medically ready [facility]
--- NOTE | 2020-05-17 11:09 | CASEMGMT ---
Social Work SW met with pt to complete PHQ9 assessment due to recent stroke. Pt is presenting with expressive aphasia. PHQ9 unable to be completed at this time. SW will remain available should pt needs arise. [facility]
--- NOTE | 2020-05-17 12:50 | DCINST_ITS ---
- Discharge Diagnoses Current Active Problems: Current Active and Chronic Problems (Last Reviewed 05/16/20 @ 01:[address] Merlin Espinosa MD) COVID-19 (Acute) Multiple skin tears (Acute) Hypoxia (Acute) Fall (Acute) Facial contusion (Acute) CHF (congestive heart failure) (Acute) Acute hypoxemic respiratory failure (Acute) Thyroid disorder (Chronic) History of pneumonia (Chronic) Hyperlipidemia (Chronic) Hypertension (Chronic) History of gallstones (Chronic) COPD (chronic obstructive pulmonary disease) (Chronic) Type 2 diabetes mellitus without complications (Chronic) Chronic bronchitis (Chronic) Cataracts, both eyes (Chronic) Asthma (Chronic) History of blood clots (Chronic) Anemia (Chronic) Seasonal allergies (Chronic) Ascites (Chronic) Dyspnea on minimal exertion (Chronic) History of permanent cardiac pacemaker placement (Chronic 01/10/15) S/P AV node ablation 12/2014 Longstanding persistent atrial fibrillation (Chronic) Non-sustained ventricular tachycardia (Chronic) 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) Non-rheumatic tricuspid valve insufficiency (Chronic) Secondary pulmonary arterial hypertension (Chronic) Essential (primary) hypertension (Chronic) GI bleed (Chronic 01/18/19) Iron deficiency anemia due to chronic blood loss (Chronic) You will use the following diet at home:: Cardiac Discharge Activity: - - activity as tolerated Allergies/Adverse Reactions: Allergies Penicillins Allergy (Severe, Verified 05/02/20 10:13) Hives swelling of tongue and throat codeine Adverse Reaction (Severe, Verified 05/02/20 10:13) HALLUCINATIONS morphine Adverse Reaction (Severe, Verified 05/02/20 10:13) HALLUCINATIONS Ibiaptx-Mxj-Vii Reductase Inhibitor Adverse Reaction (Severe, Verified 05/02/20 10:13) leg cramps leg cramps blood thinners Adverse Reaction (Uncoded 05/02/20 10:13) Bleeding Medications to take at Discharge Albuterol Sulfate [Albuterol Sulfate HFA] 2 puff IH Q6H 05/15/20 Calcium Carbonate 600 mg PO BID 05/15/20 Cetirizine HCl [All Day Allergy] 10 mg PO DAILY 05/15/20 Cholecalciferol (VIT D3) [Vitamin D3] 1,000 unit PO DAILY 05/15/20 Levothyroxine [Synthroid] 50 mcg PO DAILY 05/15/20 Metolazone [Zaroxolyn] 2.5 mg PO WE 05/15/20 Metoprolol Succinate 50 mg PO DAILY 05/15/20 Pantoprazole Sodium [Protonix] 40 mg PO DAILY 05/15/20 Potassium Chloride [Klor-Con] 20 meq PO 05/15/20 Vitamin C/Zinc PO DAILY 05/15/20 Albuterol Aerosols [Ventolin Aerosols] 2.5 mg INHALATION Q6HWA.RT vial.neb. 05/17/20 Aspirin 81 mg PO DAILY@0800 tab 05/17/20 Furosemide [Lasix] 40 mg PO BID #0 05/17/20 Levofloxacin 500 mg PO DAILY #3 tab 05/17/20 The following prescriptions were given: Levofloxacin 500 mg PO DAILY #3 tab Primary Care Physician: Linda Gresham MD [Primary Care Provider] - 06/12/20 Please follow up with your Primary Care Physician in: already scheduled Test Results: Test results from this visit will be discussed in further detail at your follow- up appointment, if applicable. Please Follow Up With: Jr Smith MD When: 2-4 weeks Please Follow Up With: Thien Husain MD - neurology When: 2-4 weeks Proposed Discharge Date: 05/17/20
--- NOTE | 2020-05-17 12:52 | DS.PCM_ITS ---
Discharge Date and Diagnosis - Problem List Patient Problems: Active and Suspected Problems (Last Reviewed 05/16/20 @ 01:[address] Merlin Espinosa MD) Multiple skin tears (Acute) Hypoxia (Acute) Fall (Acute) Facial contusion (Acute) CHF (congestive heart failure) (Acute) Acute hypoxemic respiratory failure (Acute) Date of Admission: 05/15/20 Date of Discharge: 05/17/20 - Primary Discharge Diagnosis Acute Problems: Active Problems (Last Reviewed 05/16/20 @ 01:[address] Merlin Espinosa MD) 1. acute hypoxic respiratory failure * 2/2 #2 * tolerating NC * on levofloxacin, complete 5 day total course 2. acute HFpEF * EF 60% * complicated by PAH with RVSP 60mmHg * change to PO * outpt PSG * follow up with cardiology 3. Acute CVA, suspect * emobolic due to afib * right sided deficits and aphasia * MRI showed large acute/subacute infarct medial left temporal and left thalamus * on ASA, not on anticoagulation given history of anemia * add statin * not a candidate for TPA given unknown time of onset, but also her history of intracebral hemangiomas. 4. encephalopathy * 2/2 CVA 5. Elevated troponin * d/t demand ischemia * monitor 6. lactic acidosis * 2/2 hypoxia * no further work up 7. chronic afib * not on anticoagulation given long-standing history of anemia - Secondary Discharge Diagnosis Chronic Problems: Chronic Problems (Last Reviewed 05/16/20 @ 01:[address] Merlin Espinosa MD) Thyroid disorder (Chronic) History of pneumonia (Chronic) Hyperlipidemia (Chronic) Hypertension (Chronic) History of gallstones (Chronic) COPD (chronic obstructive pulmonary disease) (Chronic) Type 2 diabetes mellitus without complications (Chronic) Chronic bronchitis (Chronic) Cataracts, both eyes (Chronic) Asthma (Chronic) History of blood clots (Chronic) Anemia (Chronic) Seasonal allergies (Chronic) Ascites (Chronic) Dyspnea on minimal exertion (Chronic) History of permanent cardiac pacemaker placement (Chronic 01/10/15) S/P AV node ablation 12/2014 Longstanding persistent atrial fibrillation (Chronic) Non-sustained ventricular tachycardia (Chronic) 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 No evidence of acute intracranial or calvarial abnormality. 2. Ill-defined area of hypodensity with associated calcifications in the white matter of the right posterior parietal lobe. No evidence of mass effect or edema. Question slow growing mass. MRI is recommended. N.B. : The above information has been verbally conveyed by Wojciech Hassan DO to Brett Tejeda MD, on 05/15/2020 16:50:03 (ET). Electronically Signed: Wojciech Hassan DO at 16:51 EST Tel [phone], Service support , ADDENDUM: 05/15/20 1658 IMPRESSION: 1. No evidence of acute intracranial or calvarial abnormality. 2. Ill-defined area of hypodensity with associated calcifications in the white matter of the right posterior parietal lobe. No evidence of mass effect or edema. Question slow growing mass. MRI is recommended. N.B. : The above information has been verbally conveyed by Wojciech Hassan DO to Brett Tejeda MD, on 05/15/2020 16:50:03 (ET). Electronically Signed: Wojciech Hassan DO at 16:51 EST Tel [phone], Service support , Cervical Spine CT 05/15/20 16:21 IMPRESSION: Degenerative changes of the cervical spine. There is no acute fracture or subluxation. Electronically Signed: Wojciech Hassan DO at 16:57 EST Tel [phone], Service support , Facial/Sinus 05/15/20 16:21 IMPRESSION: No evidence of facial bone fracture. Electronically Signed: Wojciech Hassan DO at 16:52 EST Tel [phone], Service support , Chest X-Ray 05/15/20 16:54 IMPRESSION: Findings suggestive of cardiomegaly with worsening CHF when compared to prior study. Electronically Signed: Wojciech Hassan DO at 17:13 EST Tel [phone], Service support , Pelvis X-Ray 05/15/20 16:54 IMPRESSION: Degenerative changes in lumbar spine and bilateral hips. There is no acute fracture or dislocation. Electronically Signed: Wojciech Hassan DO at 17:14 EST Tel [phone], Service support , Chest CTA 05/15/20 17:22 IMPRESSION: 1. No evidence of pulmonary embolus. 2. No aortic dissection or aneurysm. There are atherosclerotic changes of the thoracic aorta without aneurysm. 3. Cardiomegaly with cardiac pacemaker and aortic valve replacement. There is reflux of contrast into the IVC and hepatic veins secondary to right heart failure. 4. Diffuse interstitial changes throughout the lungs suggestive of mild congestive change. Associated pleural effusions. 5. Near complete resolution of the patchy right upper lobe pulmonary infiltrate seen on the previous examination. 6. Fatty infiltration of the liver. Electronically Signed: Wojciech Hassan DO at 18:59 EST Tel [phone], Service support , Hand X-Ray 05/15/20 17:22 IMPRESSION: Degenerative joint disease of the hand and wrist, as described above. No acute fracture or dislocation. Electronically Signed: Wojciech Hassan DO at 18:43 EST Tel [phone], Service support , Forearm X-Ray 05/15/20 17:55 IMPRESSION: No acute fracture or dislocation. Electronically Signed: Wojciech Hassan DO at 18:42 EST Tel [phone], Service support , Brain MRI 05/16/20 05:00 IMPRESSION: Involutional changes of the brain, as described above. Large acute/subacute infarct of the medial left temporal lobe and left thalamus per Electronically Signed: Ronald Zavaleta MD at 16:34 EST Tel , Service support , ADDENDUM: 05/16/20 1733 IMPRESSION: Involutional changes of the brain, as described above. Large acute/subacute infarct of the medial left temporal lobe and left thalamus per N.B. : The above information has been verbally conveyed by Ronald Zavaleta MD to Dr Naga MD, on 05/16/2020 17:26:41 (ET). Electronically Signed: Ronald Zavaleta MD at 16:34 EST Tel , Service support , Neck MRA 05/16/20 05:09 IMPRESSION: 1. No carotid stenosis. 2. Patent right vertebral artery. 3. Poorly visualized left vertebral artery which may be hypoplastic or with spasm. Electronically Signed: Ronald Zavaleta MD at 16:42 EST Tel , Service support , Head MRA 05/16/20 05:12 IMPRESSION: 1. Nonvisualization of the left vertebral artery which may be occluded. 2. Abrupt occlusion of the P1 segment the left posterior cerebral artery consistent with acute infarct. 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 Patient was noted to be normal the day before. When she was found, patient was found to be hypoxic with pulse ox of 70%. Patient was also confused with right-sided weakness. Patient was brought in and started on BiPAP. Patient was diuresed and started on levofloxacin and her respiratory status carefully improved. Patient was seen in consultation by pulmonology as well. From the respiratory standpoint the patient is doing well. Patient echocardiogram showed an EF of 60% but also noted elevated right ventricular systolic pressures of concern for pulmonary hypertension. No additional work-up at this time for the shortness of breath is felt to be due to CHF but also being down for period of time. Patient did undergo neurologic evaluation and had an MRI that showed a large left temporal parietal and thalamic stroke. Patient has no history of atrial fibrillation but has a history of anemia so was not on anticoagulation. Stroke was likely embolic due to her A. fib. Patient will continue with aspirin and high intensity statin will be added as well. Patient to follow-up with neurology for further follow-up and recommendations down the road. Patient still does have very profound deficits though slightly she is improving in regards to her speech is more coherent but she is still confused she is moving her right side better but still very weak overall. Patient will be discharged to the acute rehab unit at [facility]. [] Patient Problems: Active and Suspected Problems (Last Reviewed 05/16/20 @ 01:[address] Merlin Espinosa MD) Multiple skin tears (Acute) Hypoxia (Acute) Fall (Acute) Facial contusion (Acute) CHF (congestive heart failure) (Acute) Acute hypoxemic respiratory failure (Acute) - Physical Exam Vitals/I&O's: Vital Signs Temp Pulse Resp BP Pulse Ox 37.4 C H 60 23 H 125/51 H 96 05/17/20 11:00 05/17/20 11:00 05/17/20 11:00 05/17/20 11:00 05/17/20 11:00 Oxygen Flow Rate (L/min) 3 Oxygen Delivery Method Nasal Cannula Weight: 85 kg Body Mass Index (BMI) 32.1 Finger Stick Blood Glucose 137 Intake and Output for Last 24 Hours 05/15/20 05/16/20 05/17/20 23:59 23:59 23:59 Intake Total 1300 / 1300 1500.25 / 1702.75 432.5 / 432.5 Output Total 500 / 500 1575 / 1575 275 / 275 Balance 800 / 800 -74.75 / 127.75 157.5 / 157.5 General: No apparent distress, Confused HEENT: Atraumatic, Normocephalic Oral: Moist Mucosa, No Gingival or Mucosal Lesions/ Ulcerations Neck: No Nodes, Thyroid Normal Size and Texture Lungs: Clear to auscultation, Normal air movement Cardiovascular: Regular rate, Regular Rhythm, Normal S1, Normal S2, No murmurs Abdomen: Bowel Sounds Present, Soft, Non Tender, Non-Distended Extremities: No edema, No Calf Tenderness Neurological: - - Muscle strength 5 5 in the left upper and left lower extremity and about 2 out of 5 in the right upper and right lower extremity. Patient still confused and not oriented to the place. Psych/Mental Status: Appropriate Microbiology Past 72 Hours 05/15/20 16:29 Urine Catheter - Carey Urine Culture - Preliminary Culture exhibits no growth. Laboratory Results 05/17/20 03:30: WBC 13.0 H, RBC 4.75, Hgb 13.9, Hct 43.7, MCV 92.0, MCH 29.3, MCHC 31.8 L, RDW Std Deviation 61.3 H, RDW Coeff of [place] 19.0 H, Plt Count 373, MPV 9.6, Immature Gran % (Auto) 1.300 H, Neut % (Auto) 80.5 H, Lymph % (Auto) 5.2 L, [place] % (Auto) 12.2 H, Eos % (Auto) 0.2, Baso % (Auto) 0.6, Absolute Neuts (auto) 10.4 H, Absolute Lymphs (auto) 0.68 L, Nucleated RBC % 0, Differential Comment SCANNED, Diff Path Review May foll, Polychromasia RARE, Macrocytosis RARE 05/17/20 03:30: Sodium 138, Potassium 3.7, Chloride 104, Carbon Dioxide 28.0, Anion Gap 6, BUN 25 H, Creatinine 1.11 H, Estim Creat Clear Calc 37.82, Est GFR (MDRD) Af Amer 62, Est GFR (MDRD) Non-Af 51 L, BUN/Creatinine Ratio 22.5 H, Glucose 125 H, Calcium 9.2, Total Bilirubin 2.00 H, AST 21, ALT 18, Alkaline Phosphatase 105, Total Protein 6.5, Albumin 2.8 L, Globulin 3.7, Albumin/Globulin Ratio 0.8 L 05/17/20 07:45: D-Dimer Quant (PE/DVT) 1.70 H* Current Medications Albuterol Sulfate (Albuterol 2.5 Mg/3 Ml Vial.Neb.) 2.5 mg INHALATION Q2H PRN PRN PRN Reason: SOB/Wheezing Albuterol Sulfate (Albuterol 2.5 Mg/3 Ml Vial.Neb.) 2.5 mg INHALATION Q6HWA.RT [facility] Last Admin: 05/17/20 12:46 Dose: 2.5 mg Documented by: Aspirin (Aspirin 325 Mg Tablet) 325 mg PO DAILY@0800 [facility] Last Admin: 05/17/20 09:19 Dose: 325 mg Documented by: Budesonide (Budesonide Respules 0.5 Mg/2 Ml Ampul.Neb.) 0.5 mg INHALATION Q12H.RT [facility] Last Admin: 05/17/20 06:49 Dose: 0.5 mg Documented by: Furosemide (Furosemide 40 Mg Tablet) 40 mg PO BID@1000,1800 [facility] Hydralazine HCl (Hydralazine 20 Mg/Ml Vial) 5 mg IV Q30M PRN PRN Reason: to maintain BP goals Sodium Chloride () 250 mls @ 15 mls/hr IV .[id number] PRN PRN Reason: Saline Flush Last Infusion: 05/17/20 09:40 Dose: 15 mls/hr Documented by: Sodium Chloride () 250 mls @ 15 mls/hr IV .[id number] PRN PRN Reason: Additional IVPB Infusion Levofloxacin (Levaquin Iv) 250 mg in 50 mls @ 50 mls/hr IV Q24H [facility] Last Infusion: 05/16/20 20:53 Dose: Infused Documented by: Labetalol HCl (Labetalol (Prefilled) 20 Mg/4 Ml) 10 - 20 mg IV Q10M PRN PRN PRN Reason: to Maintain BP Goals Ondansetron HCl (Ondansetron 4 Mg/2 Ml Vial) 4 mg IV Q8H PRN PRN PRN Reason: NAUSEA/VOMITING Sodium Chloride (0.9% Saline Lock 10 Ml Syringe) 10 - 40 ml IV UD PRN PRN Reason: SALINE FLUSH Last Admin: 05/16/20 17:14 Dose: 10 ml Documented by: Discharge Diet: Low fat/ Low Cholesterol Discharge Activity: - - activity as tolerated Home Medications: Medications to take at Discharge Albuterol Sulfate [Albuterol Sulfate HFA] 2 puff IH Q6H 05/15/20 Calcium Carbonate 600 mg PO BID 05/15/20 Cetirizine HCl [All Day Allergy] 10 mg PO DAILY 05/15/20 Cholecalciferol (VIT D3) [Vitamin D3] 1,000 unit PO DAILY 05/15/20 Levothyroxine [Synthroid] 50 mcg PO DAILY 05/15/20 Metolazone [Zaroxolyn] 2.5 mg PO WE 05/15/20 Metoprolol Succinate 50 mg PO DAILY 05/15/20 Pantoprazole Sodium [Protonix] 40 mg PO DAILY 05/15/20 Potassium Chloride [Klor-Con] 20 meq PO 05/15/20 Vitamin C/Zinc PO DAILY 05/15/20 Albuterol Aerosols [Ventolin Aerosols] 2.5 mg INHALATION Q6HWA.RT vial.neb. 05/17/20 Aspirin 81 mg PO DAILY@0800 tab 05/17/20 Furosemide [Lasix] 40 mg PO BID #0 05/17/20 Levofloxacin 500 mg PO DAILY #3 tab 05/17/20 Following Prescriptions Were Given to Patient: Levofloxacin 500 mg PO DAILY #3 tab Primary Care Physician: Linda Gresham MD [Primary Care Provider] - 06/12/20 Please follow up with your Primary Care Physician in: already scheduled Please Follow Up With: Jr Smith MD When: 2-4 weeks Please Follow Up With: Thien Husain MD - neurology When: 2-4 weeks Disposition: Inpt Rehab Unit/Facility Minutes spent on discharge:: 35 Patient Condition:: Fair Medical Necessity - Tobacco Use Smoking Status: Smoker, status unknown Meaningful Use Info Meaningful Use Diagnoses (Choose all that apply): Ischemic CVA - CVA Therapy Assessed for PT,OT and/or ST?: Yes - Ischemic Stroke Antithrombotic order at d/c?: Yes Dx of Atrial fib/flutter?: Yes Anticoagulant at discharge?: No Reason anticoagulant not ordered: Medical Contraindication Statins at discharge?: Yes Primary Dx Acute Ischemic CVA?: Yes IV tPA ordered during stay?: No Reason IV t-PA not ordered: Medical Contraindication Inpatient E&M: [id number] [facility]
[2020-05-17 13:12] LABS: Pathologist Review Reviewed
[2020-05-17 13:20] LABS: Pathologist Review Reviewed
[2020-05-17 13:20] LABS: Pathologist Review Reviewed
--- NOTE | 2020-05-17 13:56 | NURSING ---
report called to rehab will transfer to room 408, daughter updated
--- NOTE | 2020-05-17 13:56 | CASEMGMT ---
AIDA BEVERLY NOTE: Pt meets criteria for Palliative referral per screening tool. Dr Nielson agreeable to palliative referral. Order placed and call placed to [facility]. Referral made. José Luis DAVID RN CM
--- NOTE | 2020-05-17 13:57 | CASEMGMT ---
Social Work SW spoke with Dr. Nielson and pt is ready for discharge today. SW spoke with inpatient rehab and they are able to accept pt today. Phone call to daughter Megan and updated and she is agreeable to transfer today. SW spoke with [facility] nurse and they are to contact pt daughter Megan about bringing things in for patient. Pt nurse updated that pt can transfer to [facility] at any time. ELA [place]
== END 2020-05-17 15:00 | DRG 291 ==
LOC: ED 19:43 → ICU 20:17
PROVIDERS: Admitting Provider Hospitalist; Emergency Provider Emergency Medicine; PCP Internal Medicine
DX: I13.0 Hypertensive heart and chronic kidney disease with heart failure and stage 1 through stage 4 chronic kidney disease, or unspecified chronic kidney disease (principal); J96.01 Acute respiratory failure with hypoxia; I63.40 Cerebral infarction due to embolism of unspecified cerebral artery; I50.43 Acute on chronic combined systolic (congestive) and diastolic (congestive) heart failure; G93.41 Metabolic encephalopathy; E87.2 Acidosis; I48.11 Longstanding persistent atrial fibrillation; R47.01 Aphasia; G81.91 Hemiplegia, unspecified affecting right dominant side; I48.92 Unspecified atrial flutter; I24.8 Other forms of acute ischemic heart disease; E78.5 Hyperlipidemia, unspecified; J44.9 Chronic obstructive pulmonary disease, unspecified; G47.33 Obstructive sleep apnea (adult) (pediatric); E66.9 Obesity, unspecified; E83.52 Hypercalcemia; I27.21 Secondary pulmonary arterial hypertension; I42.8 Other cardiomyopathies; S00.83XA Contusion of other part of head, initial encounter; S51.811A Laceration without foreign body of right forearm, initial encounter; W18.30XA Fall on same level, unspecified, initial encounter; Y93.89 Activity, other specified; Y92.002 Bathroom of unspecified non-institutional (private) residence as the place of occurrence of the external cause; Y99.9 Unspecified external cause status; Z95.0 Presence of cardiac pacemaker; Z95.3 Presence of xenogenic heart valve; Z90.710 Acquired absence of both cervix and uterus; Z87.01 Personal history of pneumonia (recurrent); Z87.19 Personal history of other diseases of the digestive system; Z88.0 Allergy status to penicillin; Z80.3 Family history of malignant neoplasm of breast; Z79.890 Hormone replacement therapy; Z86.718 Personal history of other venous thrombosis and embolism; Z90.49 Acquired absence of other specified parts of digestive tract; Z68.33 Body mass index [BMI] 33.0-33.9, adult; Z86.16 Personal history of COVID-19; D50.0 Iron deficiency anemia secondary to blood loss (chronic); K76.0 Fatty (change of) liver, not elsewhere classified; D18.02 Hemangioma of intracranial structures; I08.3 Combined rheumatic disorders of mitral, aortic and tricuspid valves; E11.36 Type 2 diabetes mellitus with diabetic cataract; E11.22 Type 2 diabetes mellitus with diabetic chronic kidney disease; N18.30 Chronic kidney disease, stage 3 unspecified
CPT/HCPCS: 36600; 51702; 70450; 70486; 70544; 70549; 70551; 71045; 71275; 72125; 72170; 73090; 73130; 80053; 80061; 81001; 82140; 82550; 82607; 82803; 82962; 83036; 83605; 83690; 83880; 84443; 84484; 85025; 85379; 85610; 85730; 87040; 87086; 92523; 92526; 92610; 93005; 93306; 94002; 94003; 94640; 95819; 97163; 97166; 99251; 99285; A9575; J7030; J7050; Q9957; Q9967; A4216; G0463; J1940

== ENCOUNTER 2020-05-17 15:21 | Inpatient (IN) | payer MEDICARE, OTHER, SELFPAY ==
[2019-05-18 07:06] VITALS: BMI 34.4
[2020-05-17 02:27] VITALS: BMI 32.1
[2020-05-17 15:26] VITALS: BP 126/74; PULSE 62; RESP 20; TEMP 36.5; O2SAT 91; BMI 32.5; BMI 32.6
[2020-05-17 17:44] VITALS: O2SAT 94
--- NOTE | 2020-05-17 17:47 | NURSING ---
daughter called and updated on patient. daughter aware of TEAM meeting.
[2020-05-17 19:40] VITALS: PULSE 60; RESP 20
[2020-05-17 20:03] VITALS: BP 114/69; PULSE 60; RESP 24; TEMP 36.3; O2SAT 95
--- NOTE | 2020-05-17 20:08 | HP.PCM_ITS ---
Problem List (1) Debility Status: Acute (2) Encephalopathy Status: Acute (3) Acute respiratory failure with hypoxia Status: Acute (4) Stroke Status: Acute (5) Atrial fibrillation Status: Chronic (6) Acute on chronic diastolic congestive heart failure Status: Chronic (7) Hypothyroidism Status: Chronic (8) GERD (gastroesophageal reflux disease) Status: Chronic (9) Hypokalemia Status: Chronic (10) COVID-19 Status: Chronic (11) Diabetes mellitus Status: Chronic (12) Pulmonary hypertension Status: Chronic (13) Obstructive sleep apnea Status: Chronic (14) Brain hemangioma Status: Chronic (15) Expressive aphasia Status: Acute (16) Fall Status: Acute (17) Hyperlipidemia Status: Chronic Qualifiers: (18) Hypertension Status: Chronic Qualifiers: (19) COPD (chronic obstructive pulmonary disease) Status: Chronic Qualifiers: (20) Asthma Status: Chronic (21) Anemia Status: Chronic (22) Ascites Status: Chronic History of Present Illness Date of Admission: 05/17/20 Chief Complaint: Here for 3 hours daily rehabilitation, strengthening, prior to disposition determination. 05/15/2020 The patient is a 74 year old Female with below past medical history presented to [facility] Emergency Department with neurologic signs, symptoms. 05/15/2020 CT brain no acute abnormality, ?slow growing mass, MRI recommended. 05/15/2020 EKG ventricular paced rhythm, abnormal EKG. 05/15/2020 CT cervical spine degenerative changes, no acute fracture or dislocation. 05/15/2020 CT facial bones negative. 05/15/2020 Chest X-ray showed cardiomegaly, worsening congestive heart failure. 05/15/2020 X-ray pelvis showed degenerative changes lumbar spine, bilateral hips. Negative fracture or dislocation. 05/15/2020 CTA chest negative pulmonary embolism, showed cardiomegaly, pacemaker, aortic valve replacement, pacemaker, mild congestion, pleural effusion, fatty liver. 05/15/2020 X-ray right hand degenerative changes, negative fracture or dislocation. 05/15/2020 X-ray right radius, ulna negative acute fracture, dislocation. Found on bathroom floor by family, copious blood. Facial injury, right hand injury, moves all extremities, not following commands. Hypoxemic. Speaking nonsense. BiPAP applied for congestive heart failure, hypoxemia, pulsox 75% on 5 liters oxygen. 05/15/2020 Admit to ICU. Lasix 40MG IV twice daily for acute on chronic diastolic congestive heart failure. MRI brain for encephalopathy. Elevated troponin secondary to demand ischemia. 05/16/2020 MRI brain showed large acute/subacute infarct of the medial left temporal lobe, left thalamus. 05/16/2020 MRA neck showed left vertebral artery hypoplastic or spasm. 05/16/2020 MRA head showed left vertebral artery occluded. Left posterior circulation artery P1 segment abrupt occlusion consistent with acute infarct. 05/16/2020 Echo Normal LV size. Left ventricular systolic function normal. EF 60%. Pulmonary artery systolic pressure 60mm HG. Moderate pulmonary hypertension. 05/16/2020 Teleneurology recommended SCD's, consider Lovenox. NPO until swallow evaluation, permissive hypertension. Consider high intensity statin. PT/OT/ST. 05/17/2020 Levaquin x 5 days for empiric antibiotic coverage. Lasix IV changed to PO Lasix. Outpatient sleep study for moderate pulmonary hypertension. Aspirin, statin for stroke, not TPA candidate due to timing. No anticoagulation for atrial fibrillation due to anemia, GI bleeding, multiple vascular malformations in head. 05/17/2020 Admit to RU for 3 hours daily rehabilitation, strengthening, prior to disposition determination. Past Medical History Past Medical History (Chronic Problems): Chronic Problems (Last Reviewed 05/16/20 @ 01:[address] Merlin Espinosa MD) Atrial fibrillation (Chronic) Acute on chronic diastolic congestive heart failure (Chronic) Hypothyroidism (Chronic) GERD (gastroesophageal reflux disease) (Chronic) Hypokalemia (Chronic) COVID-19 (Chronic) Diabetes mellitus (Chronic) Pulmonary hypertension (Chronic) Obstructive sleep apnea (Chronic) Brain hemangioma (Chronic) Thyroid disorder (Chronic) History of pneumonia (Chronic) Hyperlipidemia (Chronic) Hypertension (Chronic) History of gallstones (Chronic) COPD (chronic obstructive pulmonary disease) (Chronic) Type 2 diabetes mellitus without complications (Chronic) Chronic bronchitis (Chronic) Cataracts, both eyes (Chronic) Asthma (Chronic) History of blood clots (Chronic) Anemia (Chronic) Seasonal allergies (Chronic) Ascites (Chronic) Dyspnea on minimal exertion (Chronic) History of permanent cardiac pacemaker placement (Chronic 01/10/15) S/P AV node ablation 12/2014 Longstanding persistent atrial fibrillation (Chronic) Non-sustained ventricular tachycardia (Chronic) 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) I50.42, I38 Non-rheumatic tricuspid valve insufficiency (Chronic) I36.1 Secondary pulmonary arterial hypertension (Chronic) I27.21 Essential (primary) hypertension (Chronic) I10 GI bleed (Chronic) Onset Date: 01/18/19 K92.2 Iron deficiency anemia due to chronic blood loss (Chronic) D50.0 Vertigo R42 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 DVT of lower extremity, bilateral I82.403 GI AVM (gastrointestinal arteriovenous vascular malformation) K55.20 cauterized July 2018 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, liver and left eye Hypothyroidism E03.9 Obesity E66.9 Osteoarthritis M19.90 Rheumatic fever I00 Sleep apnea G47.30 Dyspnea on exertion (Resolved) R06.09 Thrombocytosis D47.3 Upper GI bleed K92.2 Anemia (Inactive) D64.9 Chronic diastolic (congestive) heart failure (Inactive) I50.32 Allergies Penicillins Allergy (Severe, Verified 05/02/20 10:13) Hives swelling of tongue and throat codeine Adverse Reaction (Severe, Verified 05/02/20 10:13) HALLUCINATIONS morphine Adverse Reaction (Severe, Verified 05/02/20 10:13) HALLUCINATIONS Vfblilj-Btk-Cgt Reductase Inhibitor Adverse Reaction (Severe, Verified 05/02/20 10:13) leg cramps leg cramps blood thinners Adverse Reaction (Uncoded 05/02/20 10:13) Bleeding Home Medications: Ambulatory Orders Medication Instructions Recorded Albuterol Sulfate [Albuterol 2 puff IH Q6H 05/15/20 Sulfate HFA] Calcium Carbonate 600 mg PO BID 05/15/20 Cetirizine HCl [All Day Allergy] 10 mg PO DAILY 05/15/20 Cholecalciferol (VIT D3) [Vitamin 1,000 unit PO DAILY 05/15/20 D3] Levothyroxine [Synthroid] 50 mcg PO DAILY 05/15/20 Metolazone [Zaroxolyn] 2.5 mg PO WE 05/15/20 Metoprolol Succinate 50 mg PO DAILY 05/15/20 Pantoprazole Sodium [Protonix] 40 mg PO DAILY 05/15/20 Potassium Chloride [Klor-Con] 20 meq PO 05/15/20 Vitamin C/Zinc PO DAILY 05/15/20 Albuterol Aerosols [Ventolin 2.5 mg INHALATION Q6HWA.RT 05/17/20 Aerosols] Aspirin 81 mg PO DAILY@0800 05/17/20 Atorvastatin Calcium 40 mg PO QHS 05/17/20 Furosemide [Lasix] 40 mg PO BID 05/17/20 Levofloxacin 500 mg PO DAILY 05/17/20 Surgical History: Surgical History (Last Reviewed 05/16/20 @ 01:[address] Merlin Espinosa MD) History of permanent cardiac pacemaker placement (Chronic) Onset Date: 01/10/15 Z95.0 S/P AV node ablation 12/2014 History of aortic valve replacement with bioprosthetic valve (Chronic) Onset Date: 01/04/19 Z95.3 AVR w/ #23 Biocor prosthetic valve 04/26/2009; Re-Do: TAVR-PATRICIA w/ 23 mm ES S3 valve within a [address] Rudi tissue valve 01/04/2019 History of mitral valve replacement with bioprosthetic valve (Chronic) Onset Date: 04/26/09 Z95.3 MVR w/ # 31 Biocar prosthetic valve 04/26/2009 Colon polyp K63.5 08/26/2019 EGD at [facility], colon polyp was clipped (recent bleeding) History of appendectomy Z90.49 History of cataract surgery Z98.49 History of hysterectomy Z90.710 History of left heart catheterization Onset Date: 11/12/18 Z98.890 mild non obstructive CAD History of radiofrequency ablation procedure for cardiac arrhythmia Onset Date: 01/10/15 Z98.890 AV Junction Ablation History of removal of cyst Z98.890 right breast History of tonsillectomy and adenoidectomy Z98.890 History of total abdominal hysterectomy Z90.710 Hx of cholecystectomy Z90.49 history bilateral cataract surgery tracheostomy Onset Date: 12/03/072007 Surgical History: adenoidectomy, appendectomy, cataract, cholecystectomy, hysterectomy, pacemaker implantation, tonsillectomy, - - Aortic and mitral valve replacement, status post EGD on 08/26/19 with colon polyp clipping, status post tracheostomy Psychiatric History: 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 psych hx 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 Merlin Espinosa MD) Brother Kidney disease Father Heart disease Prostate cancer Grandmother Breast cancer History Items: Heart Disease Maternal Family History: Family History (Last Reviewed 05/16/20 @ 01:[address] Merlin Espinosa MD) Brother Kidney disease Father Heart disease Prostate cancer Grandmother Breast cancer History Items: - - anemia Review of Systems Constitutional: Denies: Chills, Fever, Weight Change HEENT: Denies: Head Aches, Sinus Congestion, Sinus Drainage Cardiovascular: Denies: Chest Pain, Palpitations Respiratory: Denies: Cough, Shortness of breath at rest, Sputum production Gastrointestinal: Denies: Abdominal Pain, Nausea, Vomiting Genitourinary: Denies: Dysuria Musculoskeletal: Denies: Joint Pain, Joint Tenderness Skin: Denies: Rash, Wounds Neurological: Denies: Numbness, Tingling, Focal weakness Psychiatric: Denies: Anxiety, Depression, Homicidal Ideations, Suicidal Ideations Hematologic/ Lymphatic: Denies: Easy Bruising, Easy Bleeding VTE Information - Inpt Only VTE Present on Admission: No VTE Mechan Device Prophylaxis: SCD's, Thigh High ADARSH Hose VTE Pharm Prophylaxis ordered?: No Reason prophylaxis not ordered:: Medical Contraindication Patient Problems: Active and Suspected Problems (Last Reviewed 05/16/20 @ 01:[address] Merlin Espinosa MD) Debility (Acute) Encephalopathy (Acute) Acute respiratory failure with hypoxia (Acute) Stroke (Acute) Expressive aphasia (Acute) Fall (Acute) - Physical Exam Vitals/I&O's: Vital Signs Temp Pulse Resp BP Pulse Ox 97.3 F L 60 24 H 114/69 95 05/17/20 20:03 05/17/20 20:03 05/17/20 20:03 05/17/20 20:03 05/17/20 20:03 Oxygen Flow Rate (L/min) 2 Oxygen Delivery Method Nasal Cannula Weight: 86.137 kg Body Mass Index (BMI) 32.5 Finger Stick Blood Glucose 137 General: Alert, Oriented x3, Cooperative HEENT: Atraumatic, PERRLA, EOMI, Normocephalic Neck: Supple, No JVD, Negative Carotid Bruits Lungs: Clear to auscultation, Normal air movement Cardiovascular: Regular rate, No murmurs Abdomen: Bowel Sounds Present, Soft, Non Tender Extremities: No edema, Capillary Refill Less than 3 Seconds Skin: No rashes, No breakdown Musculoskeletal: No Tenderness to Palpation of Joints or Extremities Neurological: Cranial nerves II-XII grossly intact, - - Right hemiplegia, Expressive aphasia. Psych/Mental Status: Normal Affect, Appropriate Current Medications Albuterol Sulfate (Albuterol 2.5 Mg/3 Ml Vial.Neb.) 2.5 mg INHALATION Q6HWA.RT JAZMIN Aspirin (Aspirin 81 Mg Tab.Chew) 81 mg PO DAILY@0800 [facility] Bisacodyl (Bisacodyl 10 Mg Suppository) 10 mg RC .PRN X 1 PRN PRN Reason: Constipation Calcium Carbonate (Calcium (Elemental) 500 Mg Tablet) 500 mg PO BIDCM [facility] Cholecalciferol (Cholecalciferol (Vit D3) 1,000 Unit (25mcg)) 1,000 unit PO DAILY JAZMIN Furosemide (Furosemide 40 Mg Tablet) 40 mg PO BIDLX [facility] Levofloxacin (Levofloxacin 250 Mg Tablet) 250 mg PO DAILY [facility] Levothyroxine Sodium (Levothyroxine 50 Mcg Tablet) 50 mcg PO DAILY@0600 [facility] Loratadine (Loratadine 10 Mg Tablet) 10 mg PO DAILY [facility] Magnesium Hydroxide (Magnesium Hydroxide 30 Ml Udc) 30 ml PO .PRN X 1 PRN PRN Reason: Constipation Metolazone (Metolazone 2.5 Mg Tablet) 2.5 mg PO We@0930 [facility] Metoprolol Succinate (Metoprolol(Xl)Succ 50 Mg Tablet) 50 mg PO DAILY [facility] Pantoprazole Sodium (Pantoprazole Sodium 40 Mg Tablet) 40 mg PO DAILY [facility] Potassium Chloride (Potassium Chloride Oral Tablet 20 Meq) 20 meq PO DAILY [facility] Senna/Docusate Sodium (Senna/Docusate Sodium 1 Tablet) 2 tablet PO BID [facility] Assessment/Plan All Active Problems (Last Reviewed 05/16/20 @ 01:[address] Merlin Espinosa MD) Debility (Acute) Encephalopathy (Acute) Acute respiratory failure with hypoxia (Acute) Stroke (Acute) Expressive aphasia (Acute) Multiple skin tears (Acute) Hypoxia (Acute) Fall (Acute) Facial contusion (Acute) CHF (congestive heart failure) (Acute) Acute hypoxemic respiratory failure (Acute) Dyspnea on exertion (Resolved) Elevated troponin (Resolved) Epistaxis (Resolved) Iron deficiency anemia (Resolved) 74 year old female with below past medical history hospitalized for stroke, complicated by acute respiratory failure with hypoxia secondary to acute on chronic diastolic congestive heart failure, demand ischemia, admitted to for 3 hours daily of rehabilitation, strengthening, prior to disposition determination. * Debility - PT/OT. * Expressive Aphasia - ST. * Pain - Tylenol 1000MG Q6H PRN pain (1-10). * Bowel - Senna/colace 2 tablets BID, MOM 30ML daily PRN, Dulcolax 10MG UT daily. * DVT prophylaxis - SCD's, [facility]. * COPD - Albuterol 2.5MG Q6H WART. * Stroke - Aspirin 81MG daily, anticoagulation intolerable, Follow up with Dr. Husain. * Hyperlipidemia - Statins intolerable. * Calcium deficiency - Calcium 500MG BID. * Vitamin D deficiency - D3 1000IU daily. * Chronic diastolic congestive heart failure - Metoprolol succinate 50MG daily, Lasix 40MG BID, Metolazone 2.5MG per week, indwelling Carey for I's and O's. * ID - Levaquin 250MG daily thru 05/20/2020. * Hypothyroidism - Levothyroxine 50MCG daily. * Allergic Rhinitis - Loratadine 10MG daily. * GERD - Pantoprazole 40MG daily. * Hypokalemia - KCL 20MEQ daily. * Pulmonary hypertension, moderate - outpatient sleep study.
[2020-05-17] MEDS: levoFLOXacin 250 MG Tablet PO (20:12)
[2020-05-17] MEDS: Furosemide 40 MG Tablet PO (20:12)
[2020-05-17] MEDS: Albuterol 2.5 MG/3 ML VIAL.NEB. INHALATION (20:21)
[2020-05-17] MEDS: Senna/Docusate Sodium 1 Tablet 2 TABLET PO (21:26)
[2020-05-17] MEDS: 0.9% Saline Lock 10 ML Syringe IV (21:58)
[2020-05-17 22:00] VITALS: O2SAT 95
[2020-05-18] VITALS (9 sets, daily range): BP systolic 110–136; BP diastolic 68–80; PULSE 52–62; RESP 18–28; TEMP 36.2–36.6; O2SAT 93–95
--- NOTE | 2020-05-18 00:34 | NURSING ---
PT MAKING MAKING YELL TYPE NOISES AND FOUND TRYING TO GET LEGS OUT OF BED AND INDICATES THAT SHE IS DISTRESSED ABOUT WEARING CPAP AND WANTS IT PULLED OFF OF HER FACE. CPAP REMOVED AND PT PLACED BACK ONTO 3LPM O2 PER N/C. VITAL SIGNS OBTAINED. PT FEELS BETTER WITH CPAP OFF AND CALMS DOWN SOON AFTER REMOVAL. PT DENIES HAVING ANY PAIN AND REPORTS BREATHING FEELS FINE.
[2020-05-18] MEDS: Levothyroxine 50 MCG Tablet PO (05:03)
[2020-05-18] MEDS: Magnesium Hydroxide 30 ML UDC PO (05:04)
--- NOTE | 2020-05-18 05:40 | NURSING ---
PT CONTINUES WITH PERSISTENT HACKING COUGH. LUNG SOUND ARE CLEAR ANTERIORLY. PULSE OX 92% ON 2 LPM O2 PER N/C. O2 INCREASE TO 2.5 LPM PER N/C. PT SOB WITH MINIMAL EXERTION. RESP THERAPY CALLED TO GIVE PT AN AEROSOL TX. LUNG SOUNDS ARE WITH SCATTERED WHEEZE L SIDE POSTERIORLY PER RT. AEROSOL INITIATED.
[2020-05-18] MEDS: Albuterol 2.5 MG/3 ML VIAL.NEB. INHALATION ×3 (05:42→18:55)
[2020-05-18] MEDS: Metoprolol(XL)Succ 50 MG Tablet PO (08:00)
[2020-05-18] MEDS: Furosemide 40 MG Tablet PO ×2 (08:01→18:14)
[2020-05-18] MEDS: Senna/Docusate Sodium 1 Tablet 2 TABLET PO ×2 (08:01→22:49)
[2020-05-18] MEDS: Loratadine 10 MG Tablet PO (08:01)
[2020-05-18] MEDS: Pantoprazole Sodium 40 MG Tablet PO (08:01)
[2020-05-18] MEDS: Calcium (Elemental) 500 MG Tablet PO ×2 (08:02→18:13)
[2020-05-18] MEDS: Aspirin 81 MG TAB.CHEW PO (08:02)
[2020-05-18] MEDS: Potassium Chloride Oral Tablet 20 MEQ PO (08:03)
[2020-05-18] MEDS: levoFLOXacin 250 MG Tablet PO (10:06)
--- NOTE | 2020-05-18 10:18 | CASEMGMT ---
Addendum entered by Jessenia Reid 05/18/20 10:21: Discussed code status with pt. Pt confirmed full code. Original Note: Social Work Met with patient for initial assessment. Pt appeared to answer majority of the questions accurately, mostly answering yes-no, but was able to speak words appropriately. Attempted to complete BIMS, pt having much difficulty with speaking the words. Completed PHQ-9 which were yes-no answers - majority seemed appropriate; however, will continue to monitor for changes in mood. Offered to provide wordsearches or crossword puzzles - pt agreed. Provided to pt. Explained Medicare benefit and Team meeting. Pt expressed understanding. SW to continue to follow. Jessenia Reid, [employer] CERTIFIED HYPERBARIC TECHNOLOGIST
[2020-05-18] MEDS: 0.9% Saline Lock 10 ML Syringe IV ×2 (12:11→22:53)
--- NOTE | 2020-05-18 13:45 | REHABEVAL_ITS ---
Admission Information Primary Diagnosis:: Stroke, acute hypoxic respiratory failure, acute on chronic diastolic heart failure. Status Changes from Prescreening?: No changes Identified Actual Problem List:: Aspiration, Falls, Cognitve Impr/Memory Loss, Mobility Impaired, Self Care Deficit, Ineffective Communication, BP, Hypertension, Fluid Overload r/t CHF, Alteration-Leisure Activ. Potential Problem List:: DVT, Bleeding, Infection, UTI, Aspiration, Falls, Skin Integrity, Depression Risk of Complications DVT: LMWH, ADARSH Hose, Sequential Compression Device Bleeding: Monitor Lab Values, Nursing to Teach Precautions for anti-coagulation therapy., Wound, if applicable, to be assessed every shift., Stroke patients assessed for lethargy or change in status. Infection: Clinical Staff to Monitor for S/S of infection:, S/S of infection include fever, redness, warmth, etc. Urinary Tract Infection: Monitor for frequency, burning, discomfort, or incontinence., Nursing will obtain urine sample for urinalysis and C&S when ordered. Aspiration: Clinical staff will monitor for coughing, drooling, congestion., Speech will evaluate swallowing and dsyphasia., Nursing will monitor patient swallowing during meals. Falls: Patient will be evaluated for Fall Precautions, Patient will be placed on Fall Precautions as indicated per protocol. Skin Breakdown: Nursing will assess skin daily using assessment tool., Nursing will place on Skin Breakdown Precautions as indicated. Pain: Clinical staff will assess patient's pain level per protocol., Medications will be given, if needed, and the pain level reassessed., Other methods: Massage, distraction, decrease stimulus, etc. used PRN. Plan of Care Patient requires physician specializing in physical medicine and rehab oversight to provide close medical supervision of rehab issues including: Pain Management, Sleep Problems, Bowel and Bladder, Medical and co-morbidity Management, DVT prophylaxis, Rehabilitation Leadership, Coordination of treatment team Patient needs Physical Therapy: For a minimum of 1 hour, At least 5 out of 7 days Patient needs Physical Therapy to improve:: Mobility, Mobility, Mobility, Strengthening, Transfers, Stretching, ROM, Endurance, Stairs, Gait, Balance Patient needs Occupational Therapy: For a minimum of 1 hour, At least 5 out of 7 days Patient needs Occupational Therapy to improve ADL's incl.: Eating, Grooming, Bathing, Dressing, Toileting, Toilet transfers, Community Reintegration, Higher functioning activities, Household tasks, Adaptive Equipment, Splinting, Other activities as determined Patient requires speech therapy: For a minimum of 1 hour, At least 5 out of 7 days Patient requires speech therapy for: Swallowing, Cognition, Language Skills, Compensatory Strategies Patient requires 24/ Rehabilitation Nursing for: Pain Issues, Identifying and preventing risk factors, Monitoring and reporting current medical conditions, Assisting with ambulation, transfer, and all ADL's, Teaching patients about disease process and medications, Family teaching, Providing safe environment, Bowel and Bladder Issues, Skin integrity, Medication Management Patient needs Dynamite Packing Machine Feeder/ Case Management for: Discharge Planning, Arrangi Home Equipment or Services, Family Interventions Patient needs Dietary and Nutrition Services for: Adequate Nutrition, Nutritional Supplements, Nutritional Education Goals Patient will remain: free from falls, or injury at time of discharge. Patient will perform bed mobility at: - - Min A. Patient will complete transfers from bed to chair at: - - Min A. Patient will ambulate: with standby assist, with LRD Patient will complete upper body dressing at: - - Min A. Patient will complete lower body dressing at: - - Min A. Patient will complete toileting at: MOD I level of assist. Patient will perform bathing at: - - Min A. Patient will complete grooming at: MOD I level of assist. Patient will complete home management skills at: MOD I level of assist. Patient will achieve: at MOD I assist Patient will have pain level of: of 3 or less Patient's skin will: remain intact, free from infection. Patient will receive: adequate nutrition. Discharge Planning Pt Prognosis for Sig. Practical Improv. w/in Reasonable Time: Good Estimated Length of stay (days): 28 Anticipated D/C Destination: Assisted Living Facility Was Preadmission Assessment Accurate?: Yes
--- NOTE | 2020-05-18 14:41 | CASEMGMT ---
Social Work Spoke with's dtr and answered questions. Explained Medicare benefit and Team meeting. Explained SW role. Offered continued assistance throughout pt stay. Dtr emailed HCPOA paperwork to this worker - pt names dtr Megan and son Luther, both as POA. Copies placed in chart. IVETT ContrerasW
[2020-05-19] VITALS (9 sets, daily range): BP systolic 102–108; BP diastolic 61–64; PULSE 55–70; RESP 16–20; TEMP 36.6–36.9; O2SAT 92–95; BMI 32.5
[2020-05-19] MEDS: Levothyroxine 50 MCG Tablet PO (05:28)
[2020-05-19] MEDS: Albuterol 2.5 MG/3 ML VIAL.NEB. INHALATION ×3 (06:43→18:55)
[2020-05-19] MEDS: Pantoprazole Sodium 40 MG Tablet PO (10:23)
[2020-05-19] MEDS: Aspirin 81 MG TAB.CHEW PO (10:23)
[2020-05-19] MEDS: Potassium Chloride Oral Tablet 20 MEQ PO (10:23)
[2020-05-19] MEDS: Furosemide 40 MG Tablet PO ×2 (10:23→16:47)
[2020-05-19] MEDS: Loratadine 10 MG Tablet PO (10:23)
[2020-05-19] MEDS: Calcium (Elemental) 500 MG Tablet PO ×2 (10:25→16:46)
[2020-05-19] MEDS: levoFLOXacin 250 MG Tablet PO (10:26)
[2020-05-19] MEDS: Metoprolol(XL)Succ 50 MG Tablet PO (10:27)
[2020-05-19] MEDS: Senna/Docusate Sodium 1 Tablet 2 TABLET PO ×2 (10:33→21:56)
[2020-05-19] MEDS: 0.9% Saline Lock 10 ML Syringe IV ×2 (18:47→21:49)
[2020-05-20] VITALS (7 sets, daily range): BP systolic 103–107; BP diastolic 53–78; PULSE 52–73; RESP 16–20; TEMP 36.1–36.5; O2SAT 94–95; BMI 32.5
[2020-05-20] MEDS: Levothyroxine 50 MCG Tablet PO (05:04)
[2020-05-20] MEDS: Albuterol 2.5 MG/3 ML VIAL.NEB. INHALATION ×3 (07:42→19:15)
[2020-05-20] MEDS: Potassium Chloride Oral Tablet 20 MEQ PO (10:04)
[2020-05-20] MEDS: Furosemide 40 MG Tablet PO ×2 (10:04→17:19)
[2020-05-20] MEDS: Aspirin 81 MG TAB.CHEW PO (10:04)
[2020-05-20] MEDS: Calcium (Elemental) 500 MG Tablet PO ×2 (10:04→17:19)
[2020-05-20] MEDS: Metoprolol(XL)Succ 50 MG Tablet PO (10:04)
[2020-05-20] MEDS: Pantoprazole Sodium 40 MG Tablet PO (10:04)
[2020-05-20] MEDS: Senna/Docusate Sodium 1 Tablet 2 TABLET PO ×2 (10:04→22:07)
[2020-05-20] MEDS: Loratadine 10 MG Tablet PO (10:04)
[2020-05-20] MEDS: levoFLOXacin 250 MG Tablet PO (10:10)
[2020-05-20] MEDS: Acetaminophen 500 MG Tablet 1000 MG PO ×2 (10:34→22:09)
[2020-05-20] MEDS: 0.9% Saline Lock 10 ML Syringe IV (10:47)
[2020-05-21] VITALS (7 sets, daily range): BP systolic 116–140; BP diastolic 78–83; PULSE 49–70; RESP 16–26; TEMP 36.1–36.2; O2SAT 92–97; BMI 32.5
[2020-05-21] MEDS: 0.9% Saline Lock 10 ML Syringe IV ×2 (01:24→20:25)
[2020-05-21] MEDS: Acetaminophen 500 MG Tablet 1000 MG PO ×2 (04:24→16:32)
[2020-05-21] MEDS: Levothyroxine 50 MCG Tablet PO (06:08)
[2020-05-21] MEDS: Albuterol 2.5 MG/3 ML VIAL.NEB. INHALATION ×4 (07:20→22:45)
[2020-05-21] MEDS: Aspirin 81 MG TAB.CHEW PO (07:39)
[2020-05-21] MEDS: Potassium Chloride Oral Tablet 20 MEQ PO ×2 (07:39→21:09)
[2020-05-21] MEDS: Loratadine 10 MG Tablet PO (07:39)
[2020-05-21] MEDS: Pantoprazole Sodium 40 MG Tablet PO (07:39)
[2020-05-21] MEDS: Calcium (Elemental) 500 MG Tablet PO ×2 (07:40→16:33)
[2020-05-21] MEDS: Metoprolol(XL)Succ 50 MG Tablet PO (07:42)
[2020-05-21] MEDS: Furosemide 40 MG Tablet PO (07:42)
--- NOTE | 2020-05-21 09:19 | NURSING ---
Oxygen saturation maintained with 1 L via NC and 94% at rest. During therapy exertion is SOB, spo2 dropped to 88% and oxygen increased to 3 L via NC with exertion to get to 92%. Nursing placed back to 1 L via NC at rest after therapy session and spo2 maintained at 9#%.
--- NOTE | 2020-05-21 10:10 | CASEMGMT ---
Social Work IDT met with patient and dtr via conference call for Team meeting. Discussed patient's progress in therapy and nursing. Pt is max x2 for all tx and ADLs. Pt has no functional movement in right arm. OT to measure pt for brace. St has pt on blended diet, thin liquids. Pt has baseline cough and coordination difficulties with chewing. Nursing is 1:1 with meals. Pt has apraxia and aphasia. Pt is new on O2. Nursing to remove richardson today. Fatigues quickly. Explained Medicare approved 23 days with EDC 06/09. Will ReTeam next week. Will continue to follow. IVETT Contreras MANAGER [employer]TER[employer]ISE
--- NOTE | 2020-05-21 10:39 | PN_ITS ---
Progress Note Patient was seen on team rounds today. Her daughter Megan participated by phone. Afebrile - since admission VSS ranges from the high 50's to 70. Blood pressure is well controlled. She is tachypneic as I am watching her breath at rest in the chair Maintaining appropriate oxygen saturation on RA Oral intake is good. Fluid balance has been approximately equal from day-to-day. weight in December of 2019 was 186 lbs. Discussed with nursing - no problems that need addressed Reviewed the PT/OT/ST notes Medication list reviewed. she is on Lasix BID and Metolazone on Thu only. Geno is c/o fatigue and also of a sore throat. She is more SOB, even at rest, than usual. She is coughing and it is non-productive. She denies chest pain, palpitations, nausea, abdominal pain. All lab and all testing from recent admission was reviewed as well as Dr. Gruber's H&P and Dr. Nielson's DCS. PMH is significant for NIVIA, pulmonary HTN (60), S/P bioprosthetic AVR (2009), hx of TAVR in 2018, hx of biventricular CHF with PEF, dilated RV with global systolic dysfunction, hx of rheumatic fever with rheumatic aortic and mitral valve disease, Hx of a bioprosthetic MVR (2019 at [facility]), Hx of AV ivory ablation, hx of PM implantation, PAF, hypothyroidism, nonsustained ventricular tachycardia (did not tolerate Rythmol due to increased SOB and edema and mexiletine was ineffective), hypertension, diabetes mellitus type 2 diet controlled, gastrointestinal AVM, hemangiomas of the eye, liver and brain, osteoarthritis, obstructive sleep apnea, colon polyps, COPD, tobacco dependence in remission (quit in 2008), iron deficiency anemia, chronic renal failure stage IIIa, osteopenia, COVID PNA in March of 2020. She is alert and appears fatigued. She keeps nodding off while the TEAM is talking. Slurred speech MM are very dry. The posterior pharynx has 2 small white patches and the pharynx and the buccal mucosa are very reddened. No cervical nodes palpated. 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 No gallop appreciated. no ectopy no peripheral edema the skin tears on the extensor surface of the R hand and the extensor surface of the forearm are denuded now. the base is 100% yellow slough with no hyun-wound erythema and no odor. There is no purulent DC but there is some yellow serous DC. No calf pain Impressions 1. acute hypoxic respiratory failure 2. 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 acute on chronic CHF with increased BNP and cephalization on CXR with blunting of both costophrenic angles 4. Hypokalemia - would like to keep the K at around 4 in light of the hx of PAF 5. DM II - diet controlled with a HGBA1C of 7% Continue the carb consistent diet 6. PAF 7. History of nonsustained ventricular tachycardia 8. Moderate pulmonary hypertension with history of cor pulmonale and dilated right ventricle with dilated inferior vena cava 9. History of bioprosthetic aortic valve replacement in 2008 with a TAVR in 2019. 10. Status post bioprosthetic mitral valve replacement 11. History of cardiac ablation 12. History of pacemaker implantation 13. Hypothyroidism 14. Hypertension 15. Chronic renal failure stage IIIa 16. Hyperlipidemia 17. Complicated UTI related to Carey catheter presence - AF but the WBC is elevated with a left shift and there is 3+ bacteria in the urine so will start an antibiotic and await the results of the urine culture 18. Thrush-more likely than not secondary to recent Levaquin 19. Pharyngitis? or sore throat due to thrush? CXR now and BMP, Mag, BNP and CBC start Nystatin swish and swallow Chloroseptic Throat spray DC Carey and get a UA prior to removing the catheter check an iron panel on 05/28 and give Venofer if the Ferritin is <100, The transferrin sat is < 20% or the TIBC is high. start Omnicef 300 mg BID for 5 days ( will treat pharyngitis and UTI) - she gets hives with PCN and she obviously failed Levaquin. Change the Lasix to IV for a couple days and continue to monitor the CREAT Daily weights and accurate I&O's Check PVR's after the Carey has been DC'd change the Alb aerosols to Q4H WA for the next couple days Consider discontinuing the antihistamine because it is on the Beer's list as a possibly risky medication associated with increased confusion Start an SSRI for depression Increase potassium to 20 mEq twice daily 40 mEq of p.o. potassium now since we are initiating intravenous Lasix STROKE Vital Signs/Narrative: Vital Signs Temp Pulse Resp BP Pulse Ox 05/21/20 09:07 97.1 F L 70 16 140/78 H 97 05/21/20 07:42 70 05/21/20 07:20 60 26 H 92 Inpatient E&M: 94551 Subs Hosp L3
[2020-05-21 11:10] LABS: Absolute Lymphocyte Count 0.76 X10^3/uL (0.83-4.51); Absolute Neutrophil Count 9.7 X10^3/uL (2.0-7.7); Basophil# 0.11 X10^3/uL; Basophil% 0.9 % (0-1); Eosinophil# 0.18 X10^3/uL; Eosinophils% 1.5 % (0-5); Hematocrit 42.5 % (37-47); Hemoglobin 13.4 g/dL (12.0-15.0); Lymphocyte # 0.76 X10^3/ul (4.0); Lymphocyte % 6.2 % (19-41); Mean Corp Hgb Conc 31.5 g/dL (32-36); Mean Corpuscular Hgb 29.3 pg (27.0-32.0); Mean Corpuscular Volume 92.8 fL (81-99); Mean Platelet Vol. 9.8 fl (6.2-12.0); Monocyte# 1.24 X10^3/uL; Monocyte% 10.2 % (0-10); NRBC Flagged by Analyzer 0.6 % (0-5); Neutrophil # 9.74 X10^3/uL (2.7-7.7); Platelet Count 332 K/mm3 (150-450); RBC Distribution Width SD 61.7 fl (35.1-43.9); Red Blood Count 4.58 M/mm3 (4.2-5.4); White Blood Count 12.2 K/mm3 (4.4-11.0)
[2020-05-21 11:32] LABS: Anion Gap 7 (5-15); BUN 32 mg/dL (7-18); BUN/Creat Ratio 26.4 RATIO (10-20); Calcium,Total 9.8 mg/dL (8.5-10.1); Chloride 104 mmol/L (98-107); Creatinine, Serum 1.21 mg/dL (0.55-1.02); EST Glomerular Filtration Rate 46 mL/min (>60); Est Glom Filt Rate - Afr Amer 56 mL/min (>60); Estimated Creatinine Clearance 34.69 ml/min; Glucose 153 mg/dL (74-106); Magnesium 2.3 mg/dL (1.6-2.6); Potassium 3.8 mmol/L (3.5-5.1); Sodium Level 138 mmol/L (136-145)
[2020-05-21 11:34] LABS: BNP,B-Type NATRIURETIC PEPTIDE 858.9 pg/mL (0-100)
--- NOTE | 2020-05-21 11:35 | RAD_ITS ---
STUDY: X-RAY CHEST REASON FOR EXAM: Female, 74 years old. DYSPNEA AND WHEEZING. HX STROKE. TECHNIQUE: Single AP portable view of the chest. COMPARISON: Comparison is made with prior study dated 05/15/2020. FINDINGS: EKG electrodes are seen. Persistent mild vascular congestion and increased interstitial markings suggest with residual mild CHF although there has been improvement as compared to prior study. Blunting of both cost phrenic angles. Sternal cerclage wires and vascular clips are present from a prior sternotomy and coronary artery bypass graft procedure (CABG). A left-sided unipolar pacemaker is seen. Normal mediastinum and derek. Normal visualized pulmonary arteries. There is atherosclerotic calcification of the aortic arch with tortuosity. There are degenerative changes of the visualized thoracic spine. Normal visualized ribs, clavicles, and shoulders. There is no demonstrated abnormality of the visualized soft tissue structures of the upper abdomen. RAD/Chest 1 View (Portable) IMPRESSION: Mild degree of residual CHF although there has been improvement as compared to prior study. Cardiomegaly. Electronically Signed: Nate Walker MD at 14:28 EST , Service support ,
[2020-05-21 11:36] LABS: Color, Urine Amber (Yellow); Glucose, Dipstick Normal (Normal); Ketone-Dipstick Negative (Negative); Leukocyte Esterase-Dipstick 500 /ul (Negative); Nitrite-Dipstick Positive (Negative); Occult Blood-Urine 250 /ul (Negative); Protein-Dipstick 30 mg/dl (Negative); Specific Gravity, Urine 1.015 (1.002-1.030); Urine Bilirubin Dipstick Negative (Negative); Urine Clarity Sl. Cloudy (Clear); Urine Urobilinogen Normal (Normal); Urine pH 6.5 (5.0 - 8.0)
[2020-05-21 11:59] LABS: Red Blood Cells-Urine 25-50 SEEN /hpf (0-5); Squamous Epithelial Cells - UA 5-10 SEEN /hpf (5-10); White Blood Cells 25-50 SEEN /hpf (0-5)
[2020-05-21 12:00] LABS: Bacteria 3+ /hpf (None Seen); Mucous, Urine RARE /hpf (<or=2+)
[2020-05-21] MEDS: Senna/Docusate Sodium 1 Tablet 2 TABLET PO ×2 (12:23→21:09)
--- NOTE | 2020-05-21 14:31 | NURSING ---
wound photo: right forearm/hand
--- NOTE | 2020-05-21 14:31 | NURSING ---
wound photo: right dockery
[2020-05-21] MEDS: Potassium Chloride Oral Tablet 20 MEQ 40 MEQ PO (15:09)
[2020-05-21] MEDS: Furosemide 100 MG/10 ML Vial 80 MG IV (15:11)
[2020-05-21] MEDS: NYSTATIN 500,000 UNIT/5 ML UDC 500000 UNIT PO ×3 (15:26→21:09)
--- NOTE | 2020-05-21 15:33 | NURSING ---
Lasix IV 80mg given as 2 40mg vials administered over 14 minutes to IV in left AC. Lungs auscultated at this time and wheezes heard throughout the posterior hudson but no crackles or rhonchi.
[2020-05-21] MEDS: Furosemide 40 MG/4 ML Vial IV (17:58)
--- NOTE | 2020-05-21 20:49 | CPS ---
staff therapist reported to this MACHINERY ENGINEER that a verbal order was given be to keep oxygen at 2LNC while patient is at the hospital. Patient became tachypneic when on 1LNC per staff therapist.
[2020-05-21] MEDS: Cefdinir 300 MG Capsule PO (21:09)
[2020-05-22] VITALS (7 sets, daily range): BP systolic 120–135; BP diastolic 78–87; PULSE 57–108; RESP 16–22; TEMP 36.1–36.3; O2SAT 90–98; BMI 32.5
[2020-05-22] MEDS: Levothyroxine 50 MCG Tablet PO (05:14)
--- NOTE | 2020-05-22 05:51 | NURSING ---
Pt has intermittent, strong coughs and restless for a good part of the night. Slept off and on. Poor x2 transfer to BSC when pt felt urgency to have BM. Once on toilet, no BM and pt was wobbly on BSC. Pt can be heard at nurses station talking and found to be wide awake when staff enters room.
[2020-05-22 06:23] LABS: Anion Gap 8 (5-15); BUN 31 mg/dL (7-18); BUN/Creat Ratio 25.6 RATIO (10-20); Calcium,Total 9.7 mg/dL (8.5-10.1); Chloride 105 mmol/L (98-107); Creatinine, Serum 1.21 mg/dL (0.55-1.02); EST Glomerular Filtration Rate 46 mL/min (>60); Est Glom Filt Rate - Afr Amer 56 mL/min (>60); Estimated Creatinine Clearance 34.69 ml/min; Glucose 119 mg/dL (74-106); Potassium 4.4 mmol/L (3.5-5.1); Sodium Level 137 mmol/L (136-145)
[2020-05-22] MEDS: Albuterol 2.5 MG/3 ML VIAL.NEB. INHALATION ×2 (06:44→11:20)
[2020-05-22] MEDS: Calcium (Elemental) 500 MG Tablet PO ×2 (09:20→17:16)
[2020-05-22] MEDS: Aspirin 81 MG TAB.CHEW PO (09:20)
[2020-05-22] MEDS: Metoprolol(XL)Succ 50 MG Tablet PO (09:20)
[2020-05-22] MEDS: Furosemide 40 MG/4 ML Vial IV ×2 (09:21→17:36)
[2020-05-22] MEDS: Pantoprazole Sodium 40 MG Tablet PO (09:21)
[2020-05-22] MEDS: Loratadine 10 MG Tablet PO (09:21)
[2020-05-22] MEDS: NYSTATIN 500,000 UNIT/5 ML UDC 500000 UNIT PO ×4 (09:21→20:29)
[2020-05-22] MEDS: Potassium Chloride Oral Tablet 20 MEQ PO ×2 (09:21→20:29)
[2020-05-22] MEDS: 0.9% Saline Lock 10 ML Syringe IV ×2 (09:21→17:37)
[2020-05-22] MEDS: Sertraline 50 MG Tablet 25 MG PO (09:22)
[2020-05-22] MEDS: Senna/Docusate Sodium 1 Tablet 2 TABLET PO ×2 (09:22→20:30)
[2020-05-22] MEDS: Cefdinir 300 MG Capsule PO ×2 (09:22→20:30)
--- NOTE | 2020-05-22 11:49 | PCM.PN.BLA ---
Progress Note Day #2 cefdinir Afebrile VSS Maintaining appropriate oxygen saturation on a 2 L nasal cannula. Increased to 3 L when she is doing therapy. Oral intake is 1640 on 05/21/2020. The fluid balance on 05/21/2020 was -235. Fluid balance overnight was -260. The weight today is 188 pounds and 6 ounces, down from 192 pounds and 7 ounces on 05/21/2020. Discussed with nursing - no problems that need addressed Reviewed the PT/OT/ST notes Medication list reviewed. She states her breathing is a little better today and she is not coughing as much. RT suggested changing the aerosols to Duoneb for better duration of action. she denies CP, palpitations, nausea, abd pain. All lab was personally reviewed. The BUN today is 31 which is stable and the creatinine is stable at 1.21. Potassium is 4.4 today. Magnesium was 2.3 yesterday. Urine culture is pending. Alert, appropriate, pleasant Lungs -she has a few coarse crackles in the bases but the lungs are otherwise clear to auscultation with much better air exchange than yesterday. She is not tachypneic at rest today. She has no conversational dyspnea. Heart-irregular irregular with controlled ventricular response, MM at the second right intercostal space No ankle edema Abdomen-soft and nontender No calf pain No rashes and no skin breakdown Impressions 1. Post stroke debility 2. UTI 3. acute on chronic CHF preserved EF of 60% 4. Pulmonary HTN with a PA estimated at 60 mm HG 5. CRF stage 3a 6. S/P MVR, AVR and PM 7. PAF Continue the IV lasix Fluid restrict to 1300 cc's continue the daily weights Change the aerosols to Duoneb Q 4 H while Awake Continue cefdinir and await the results of the urine culture Recheck a BMP in the a.m. Metolazone 2.5 mg p.o. today Continue therapy STROKE Vital Signs/Narrative: Vital Signs Temp Pulse Resp BP Pulse Ox 05/22/20 11:20 61 20 H 05/22/20 09:20 64 05/22/20 08:47 97.4 F L 64 16 120/78 93 Inpatient E&M: 95471 Subs Hosp L2
[2020-05-22] MEDS: Metolazone 2.5 MG Tablet PO (13:23)
[2020-05-22] MEDS: Ipratropium/Albuterol Sulfate 3 ML AMPUL.NEB INHALATION ×2 (15:35→19:50)
[2020-05-23] VITALS (7 sets, daily range): BP systolic 104–118; BP diastolic 56–68; PULSE 51–66; RESP 18–20; TEMP 36.5–37; O2SAT 92–97; BMI 32.5
[2020-05-23] MEDS: Levothyroxine 50 MCG Tablet PO (05:22)
[2020-05-23] MEDS: 0.9% Saline Lock 10 ML Syringe IV (05:22)
[2020-05-23] MEDS: Acetaminophen 500 MG Tablet 650 MG PO (05:31)
[2020-05-23 06:33] LABS: Anion Gap 7 (5-15); BUN 32 mg/dL (7-18); BUN/Creat Ratio 27.6 RATIO (10-20); Calcium,Total 9.6 mg/dL (8.5-10.1); Chloride 98 mmol/L (98-107); Creatinine, Serum 1.16 mg/dL (0.55-1.02); EST Glomerular Filtration Rate 48 mL/min (>60); Est Glom Filt Rate - Afr Amer 59 mL/min (>60); Estimated Creatinine Clearance 36.19 ml/min; Glucose 120 mg/dL (74-106); Potassium 3.6 mmol/L (3.5-5.1); Sodium Level 138 mmol/L (136-145)
[2020-05-23] MEDS: Menthol/Lanolin/Calamine/Znox 113 GM Tube 1 APPLIC TOPICAL (06:40)
[2020-05-23] MEDS: Ipratropium/Albuterol Sulfate 3 ML AMPUL.NEB INHALATION ×4 (07:10→19:19)
[2020-05-23] MEDS: Aspirin 81 MG TAB.CHEW PO (08:09)
[2020-05-23] MEDS: Calcium (Elemental) 500 MG Tablet PO ×2 (08:09→17:36)
[2020-05-23] MEDS: Nystatin Powder 15gm Bottle 1 APPLIC TOPICAL (08:10)
[2020-05-23] MEDS: Loratadine 10 MG Tablet PO (08:10)
[2020-05-23] MEDS: Potassium Chloride Oral Tablet 20 MEQ PO (08:10)
[2020-05-23] MEDS: NYSTATIN 500,000 UNIT/5 ML UDC 500000 UNIT PO ×2 (08:11→17:35)
[2020-05-23] MEDS: Senna/Docusate Sodium 1 Tablet 2 TABLET PO (08:11)
[2020-05-23] MEDS: Pantoprazole Sodium 40 MG Tablet PO (08:11)
[2020-05-23] MEDS: Cefdinir 300 MG Capsule PO (08:11)
[2020-05-23] MEDS: Sertraline 50 MG Tablet 25 MG PO (08:12)
--- NOTE | 2020-05-23 09:31 | PCM.PN.BLA ---
Progress Note Day #3 cefdinir Afebrile VSS Maintaining appropriate oxygen saturation on 2 L nasal cannula. Pulse ox on 2 L today is 97%. Oral intake is good Fluid balance on 05/22/2020 was -1700 and overnight she had an additional -805. The weight today is 188 pounds and 5 ounces. Discussed with nursing - no problems that need addressed Reviewed the PT/OT/ST notes Medication list reviewed. All lab was personally reviewed. Serum bicarb is up to 33 from 24 on 05/22/2020. The BUN is 32 which is stable and the creatinine is 1.16, down from 1.21 on 05/21/2020. Urine culture is positive for presumptive E. coli, greater than 100,000 colonies. It is intermediately sensitive to ampicillin and resistant to Cipro and Levaquin. It is sensitive to cephalosporins. Alert, intermittent appropriate answers to simple questions with intermittent nonsensical speech secondary to aphasia Mucous membranes are moist Lungs-scattered rhonchi that improve after a few coughs. No tight wheezing. Few coarse crackles in the right base which are persistent. Heart-regular rate and rhythm Abdomen-soft, no guarding with palpation, bowel sounds are not hyperactive No ankle edema No rashes Impressions 1. Post stroke debility 2. UTI-secondary to E. coli which is resistant to brijesh quinolones 3. acute on chronic diastolic CHF with preserved EF of 60%-improving 4. Pulmonary HTN with a PA estimated at 60 mm HG 5. CRF stage 3a 6. S/P MVR, AVR and PM 7. PAF 8. Metabolic alkalosis-possibly secondary to intravascular volume depletion but cannot rule out secondary to combined respiratory failure with CO2 retention 9. Aphasia Continue Cefdinir for a total of 7 days since this is a hospital acquired infection and related to Carey catheter. Change the Lasix to PO, 60 mg BID. COntinue the daily weights Recheck BMP on Thursday Potassium 40 MEQ now DC the Loratidine - pt is confused and antihistamines are on the Beer's list as potentially dangerous in elderly STROKE Vital Signs/Narrative: Vital Signs Temp Pulse Resp BP Pulse Ox 05/23/20 08:21 98.6 F 60 20 H 104/56 L 97 05/23/20 07:10 51 L 20 H 92 Inpatient E&M: [id number] Subs Hosp L2
[2020-05-23] MEDS: Metolazone 2.5 MG Tablet PO (11:08)
[2020-05-23] MEDS: Furosemide 20 MG Tablet 60 MG PO ×2 (11:08→17:36)
[2020-05-23] MEDS: Potassium Chloride Oral Tablet 20 MEQ 40 MEQ PO (11:08)
[2020-05-23] MEDS: Metoprolol(XL)Succ 50 MG Tablet PO (11:58)
--- NOTE | 2020-05-23 17:39 | SP.MBSS_ITS ---
Modified Barium Swallow - Patient Information Study Date: 05/23/20 Study Time: 13:30 Direct Billable Minutes: 60 Total Minutes procedure & reportin Diagnosis: Dysphagia (R13.12) Referring Physician: Susan Bates Reason for Referral: The patient is a 74 year old female with an extensive medical history referred for a modified barium swallow (MBS) study to objectively assess the patients oropharyngeal swallow function under fluoroscopy secondary to concerns for PO intake (appears to be heavily weighted on her cognitive capacity per documentation), recent MRI revealed a large acute/subacute infarct of the medial left temporal lobe and left thalamus. - Penetration-Aspiration Scale Penetration-Aspiration Scale: OBJECTIVE ASSESSMENT OF SWALLOW FUNCTION (QUANTITATIVE ? PER TRIAL): PENETRATION / ASPIRATION SCALE (RILEY): 1 = does not enter airway 2 = enters airway/above vocal folds/ejected 3 = enters airway/above vocal folds/not ejected 4 = enters airway/contacts vocal folds/ejected 5 = enters airway/contacts vocal folds/not ejected 6 = enters airway/below vocal folds/ejected 7 = enters airway/below vocal folds/not ejected despite effort 8 = enters airway/below vocal folds/no effort PENETRATION / ASPIRATION SCALE (SCORE): Thin liquid - 5 mL tsp.: 1 Thin liquids via cup (total feed): 1 Thin liquids via straw (sequential): 2 Thin liquids via straw (sequential): 2 Pudding via spoon: 1 Solid textures with thin liquids via straw (chaser): 2 Thin liquids via straw (sequential): 2 - Oral Phase Labial Seal: Interlabial escape, no progression to anterior lip Tongue Control During Bolus Hold: Posterior escape of less than half of bolus Bolus Preparation/Mastication: Slow prolonged chewing/mashing with complete recollection Bolus Transport/Lingual Motion: Repetitive/disorganized tongue motion Oral Residue: Residue collection on oral structures - Pharyngeal Phase Initiation of Pharyngeal Swallow: Bolus head at posterior laryngeal surgace of epiglottis Soft Palate Elevation: No bolus between soft palate and pharyngeal wall Laryngeal Elevation: Partial superior movement thyroid cart/partial apprx aryt- epig petiole Anterior Hyoid Excursion: Partial anterior movement Epiglottic Movement: Partial inversion Laryngeal Vestibule Closure at Height of Swallow: Complete; no air/contrast in laryngeal vestibule Pharyngeal Stripping Wave: Present - diminished Pharyngoesophageal Segment Opening: Parital distension and partial duration; parital obstruction of flow Tongue Base Retraction: Narrow column of contrast between tongue base & post. pharyngeal wall Pharyngeal Residue: Collection of residue within or on pharyngeal structures - Diagnosis/Impression Diagnosis: Dysphagia (R13.12) Impression: The patient presents with mild to moderate oropharyngeal dysphagia (DSRS: 3) with intermittent shallow and transient penetration of thin liquids secondary to a large acute/subacute infarct of the medial left temporal lobe and left thalamus. Her swallow profile was marked by prolonged mastication (albeit effective). Intermittent discoordinated lingual movements (undulations). Inconsistent pharyngeal swallow delay / dyssynchrony contributing to prandial penetration. Reduced hyolaryngeal excursion and duration with sufficient / consistent laryngeal vestibule pressure generated to expel penetrated material. Intake complicated by tendency to consume in sequential fashion. - Recommendations Comment: DIET TEXTURE RECOMMENDATIONS: minced & moist textured (IDDSI: 5), thin liquid diet (IDDSI: 0) * advancement pending bedside observation / meal analysis. RECOMMENDED COMPENSATORY STRATEGIES: direct supervision with assistance as needed, reduced bolus volume (4mm bolus size), reduced rate of intake, seated upright at 90 degrees during PO intake, remain upright for 30-60 minutes post meal (GERD precaution), medications one at a time with purejose. Need for Skilled Speech Therapy Services: Yes Education Completed: 1. Described result of evaluation., 2. Pt understands evaluation & agrees with goals and treatment plan., 7. Pt requires further education on strategies & risks. - Status Active ST Patient: Active
--- NOTE | 2020-05-23 17:43 | ST ---
MBS completed this date, with results as follows: RESULTS OF THE EVALUATION: The patient presents with mild to moderate oropharyngeal dysphagia (DSRS: 3) with intermittent shallow and transient penetration of thin liquids secondary to a large acute/subacute infarct of the medial left temporal lobe and left thalamus. DIET TEXTURE RECOMMENDATIONS: minced & moist textured (IDDSI: 5), thin liquid diet (IDDSI: 0) * advancement pending bedside observation / meal analysis. RECOMMENDED COMPENSATORY STRATEGIES: direct supervision with assistance as needed, reduced bolus volume (4mm bolus size), reduced rate of intake, seated upright at 90 degrees during PO intake, remain upright for 30-60 minutes post meal (GERD precaution), medications one at a time with zen. Dalton Mccrary M.A., CCC-ASSISTANT MAINTENANCE MANAGER, CBIS MBSImP Certified, LSVT Certified [facility] Speech-Language Pathology Department Email: [email or web address]
[2020-05-24] MEDS: Cefdinir 300 MG Capsule PO ×3 (00:01→21:15)
[2020-05-24] MEDS: NYSTATIN 500,000 UNIT/5 ML UDC 500000 UNIT PO ×5 (00:01→21:15)
[2020-05-24] MEDS: Nystatin Powder 15gm Bottle 1 APPLIC TOPICAL ×3 (00:01→21:15)
[2020-05-24] MEDS: Senna/Docusate Sodium 1 Tablet 2 TABLET PO ×3 (00:01→21:15)
[2020-05-24] MEDS: Menthol/Lanolin/Calamine/Znox 113 GM Tube 1 APPLIC TOPICAL ×3 (00:02→21:14)
[2020-05-24] MEDS: Potassium Chloride Oral Tablet 20 MEQ PO ×3 (00:02→21:14)
[2020-05-24] MEDS: Levothyroxine 50 MCG Tablet PO (07:01)
[2020-05-24 07:30] VITALS: PULSE 61; RESP 18; O2SAT 98
[2020-05-24] MEDS: Ipratropium/Albuterol Sulfate 3 ML AMPUL.NEB INHALATION ×2 (07:30→19:19)
[2020-05-24] MEDS: Aspirin 81 MG TAB.CHEW PO (07:39)
[2020-05-24] MEDS: Calcium (Elemental) 500 MG Tablet PO ×2 (07:41→16:48)
[2020-05-24] MEDS: Furosemide 20 MG Tablet 60 MG PO ×2 (07:41→16:48)
[2020-05-24] MEDS: Sertraline 50 MG Tablet 25 MG PO (07:42)
[2020-05-24] MEDS: Pantoprazole Sodium 40 MG Tablet PO (07:42)
[2020-05-24 07:44] VITALS: BP 114/72; PULSE 62
[2020-05-24] MEDS: Metoprolol(XL)Succ 50 MG Tablet PO (07:44)
[2020-05-24 08:38] VITALS: BP 114/72; PULSE 62; RESP 18; TEMP 36.1; O2SAT 96
[2020-05-24 10:12] VITALS: BMI 32.5
--- NOTE | 2020-05-24 14:56 | PN_ITS ---
Progress Note Day #4 cefdinir Afebrile VSS Maintaining appropriate oxygen saturation on a 2 L nasal cannula. Oral intake is adequate The weight is up approximately 14 ounces since yesterday. Fluid balance for 05/23/2020 is -1765? Carey catheter was discontinued and we are no longer able to keep track of urine output since she is incontinent. Discussed with nursing - no problems that need addressed Reviewed the PT/OT/ST notes Medication list reviewed. She is moaning but can not tell me what is wrong. Having non-sensical speech right now and getting frustrated. She is lying at about 30 degrees in bed without tachypnea. Lungs-coarse rhonchi, cleared somewhat after a few deep breaths and a cough. I spoke with the respiratory therapist and the patient is unable to understand how to use the incentive spirometer or the PEP. No rales appreciated No peripheral edema no rashes and no skin breakdown Impressions 1. Post stroke debility 2. Catheter associated urinary tract infection secondary to E. coli -catheter was present at admission 3. Acute on chronic congestive heart failure with preserved ejection fraction- better with diuresis 4. Pulmonary hypertension 5. COPD 6. Chronic renal failure stage IIIa 7. Urinary incontinence 8. Aphasia 9. History of Covid infection with pneumonia in March 2020 10. Acute hypoxic respiratory failure 11. Diabetes mellitus type 2-diet controlled Lab ordered for the a.m. We will check post void residuals since the Carey has been discontinued - the first was 27 order accuchecks to make sure that the BS is actually controlled at this time - would like to keep the Blood sugars all < 810 given recent Large CVA Continue therapy Inpatient E&M: [id number] Subs Hosp L2
[2020-05-24 17:45] LABS: Bedside Glucose 105 mg/dL (70-110)
[2020-05-24 19:19] VITALS: PULSE 60; RESP 18
[2020-05-24 21:13] VITALS: BP 103/61; PULSE 60; RESP 20; TEMP 35.9; O2SAT 95
[2020-05-24 21:20] VITALS: RESP 16; O2SAT 97
[2020-05-24 22:40] LABS: Bedside Glucose 182 mg/dL (70-110)
[2020-05-25] VITALS (7 sets, daily range): BP systolic 107–112; BP diastolic 61–73; PULSE 44–78; RESP 18–20; TEMP 36.3; O2SAT 96–98; BMI 32.5
[2020-05-25] MEDS: Levothyroxine 50 MCG Tablet PO (05:21)
[2020-05-25 06:39] LABS: Anion Gap 8 (5-15); BUN 30 mg/dL (7-18); BUN/Creat Ratio 25.6 RATIO (10-20); Calcium,Total 10.1 mg/dL (8.5-10.1); Chloride 91 mmol/L (98-107); Creatinine, Serum 1.17 mg/dL (0.55-1.02); EST Glomerular Filtration Rate 48 mL/min (>60); Est Glom Filt Rate - Afr Amer 58 mL/min (>60); Estimated Creatinine Clearance 35.88 ml/min; Glucose 106 mg/dL (74-106); Potassium 2.6 mmol/L (3.5-5.1); Sodium Level 137 mmol/L (136-145)
[2020-05-25 06:51] LABS: Bedside Glucose 103 mg/dL (70-110)
[2020-05-25] MEDS: Ipratropium/Albuterol Sulfate 3 ML AMPUL.NEB INHALATION ×4 (07:15→19:39)
--- NOTE | 2020-05-25 07:19 | NURSING ---
this RN reported critical Potassium of 2.6 to gadiel Gonzalez RN. Lisa stated that she will report to Semendeloris when she comes in, or if Semendeloris is not here by 0800, she will call her.
[2020-05-25] MEDS: Sertraline 50 MG Tablet 25 MG PO (07:58)
[2020-05-25] MEDS: Senna/Docusate Sodium 1 Tablet 2 TABLET PO (07:58)
[2020-05-25] MEDS: NYSTATIN 500,000 UNIT/5 ML UDC 500000 UNIT PO ×4 (07:58→21:04)
[2020-05-25] MEDS: Metoprolol(XL)Succ 50 MG Tablet PO (07:59)
[2020-05-25] MEDS: Potassium Chloride Oral Tablet 20 MEQ PO (08:03)
[2020-05-25] MEDS: Pantoprazole Sodium 40 MG Tablet PO (08:03)
[2020-05-25] MEDS: Furosemide 20 MG Tablet 60 MG PO (08:03)
[2020-05-25] MEDS: Cefdinir 300 MG Capsule PO ×2 (08:03→21:04)
[2020-05-25] MEDS: Aspirin 81 MG TAB.CHEW PO (08:04)
[2020-05-25] MEDS: Calcium (Elemental) 500 MG Tablet PO ×2 (08:04→17:18)
[2020-05-25] MEDS: Menthol/Lanolin/Calamine/Znox 113 GM Tube 1 APPLIC TOPICAL ×2 (08:19→21:03)
[2020-05-25] MEDS: Nystatin Powder 15gm Bottle 1 APPLIC TOPICAL ×2 (08:20→21:04)
--- NOTE | 2020-05-25 08:47 | PN_ITS ---
Progress Note Day #5 Linusinir Afebrile Vital signs are stable She was 95% on room air last night. She was placed on oxygen overnight and the pulse ox today on 2 L is 96 to 97%. Not tachypneic. The weight today is down 2-1/2 pounds from yesterday. Current weight is 186 pounds and 8 ounces. Post void residuals are all less than 100. Remains incontinent of urine. Oral intake yesterday was 1320 cc. All lab was personally reviewed. The sodium is 137 today and the potassium is 2.6. Serum bicarb is up to 38. BUN is stable at 30 and the creatinine is sta ble at 1.17. It was 1.21 at admission to rehab. Blood sugars are consistently less than 200. Alert, still with some non-sensical speech NAD Lungs - rhonchi, no wheezing, few coarse crackles that persist in the R base after several deep breaths dry MM HRRR no edema no rashes Impressions 1. Post stroke debility 2. Catheter associated urinary tract infection secondary to E. coli -catheter was present at admission 3. Acute on chronic congestive heart failure with preserved ejection fraction- better with diuresis 4. Pulmonary hypertension 5. COPD 6. Chronic renal failure stage IIIa 7. Urinary incontinence 8. Aphasia 9. History of Covid infection with pneumonia in March 2020 10. Acute hypoxic respiratory failure 11. Diabetes mellitus type 2-diet controlled 12. Hypokalemia 13. metabolic alkalosis - more likely than not due to IV volume depletion supplement the potassium and recheck in the AM change the Lasix to daily and add Aldactone Continue with fluid restriction BMP and magnesium on Thursday Continue daily weights Continue therapy DC the Accu-Cheks if no blood sugars greater than 200 over the next 48 hours. STROKE Vital Signs/Narrative: Vital Signs Temp Pulse Resp BP Pulse Ox 05/25/20 08:20 97.4 F L 60 18 112/73 96 05/25/20 07:59 60 112/73 Inpatient E&M: [id number] Subs Hosp L2
[2020-05-25] MEDS: Spironolactone 25 MG Tablet PO (09:55)
[2020-05-25] MEDS: Potassium Chloride Oral Tablet 20 MEQ 40 MEQ PO ×2 (09:55→14:04)
[2020-05-25 10:05] LABS: Albumin, Serum 2.8 g/dL (3.2-5.0); Potassium 2.5 mmol/L (3.5-5.1)
[2020-05-25 11:15] LABS: Blood Gas Specimen Type VEN; O2 Delivery Device Cannula; VBG BASE EXCESS 14 mmol/L (-1.0-3.5); VBG Bicarbonate 39 mmol/L (22-26); VBG PO2 51 mmHg (25-40); VBG SO2 82 % (50-70); VBG TCO2 41 mmol/L (23-33); VBG pCO2 68.3 mmHg (41-51); VBG pH 7.36 (7.32-7.42)
[2020-05-25 11:20] LABS: Bedside Glucose 141 mg/dL (70-110)
[2020-05-25 17:30] LABS: Bedside Glucose 137 mg/dL (70-110)
[2020-05-25] MEDS: Potassium Chloride Oral Soln 20 MEQ/15 ML UDC PO (21:19)
[2020-05-25 22:25] LABS: Bedside Glucose 193 mg/dL (70-110)
[2020-05-26] VITALS (7 sets, daily range): BP systolic 101–112; BP diastolic 64–66; PULSE 56–70; RESP 16–22; TEMP 36.2–36.6; O2SAT 93–98; BMI 32.5
--- NOTE | 2020-05-26 01:43 | NURSING ---
pt has not voided since she was straight cathed at 1500 on 05/25/20. pt was bladder scanned at 2030 with a value of 192cc and again at 0120 with a value of 215cc. rn aware of pt bladder scan amts and has not voided so far this hs . pt had a balance of 552cc to drink this hs and 450cc were given. tongue is beefy red and cracked in appearance with oral mucosa dry and oral care given while pt is awake
[2020-05-26] MEDS: Levothyroxine 50 MCG Tablet PO (04:04)
[2020-05-26] MEDS: Ipratropium/Albuterol Sulfate 3 ML AMPUL.NEB INHALATION ×2 (06:30→18:35)
[2020-05-26 06:36] LABS: Bedside Glucose 103 mg/dL (70-110)
[2020-05-26] MEDS: Spironolactone 25 MG Tablet PO (07:46)
[2020-05-26] MEDS: Pantoprazole Sodium 40 MG Tablet PO (07:46)
[2020-05-26] MEDS: Calcium (Elemental) 500 MG Tablet PO ×2 (07:46→16:29)
[2020-05-26] MEDS: Potassium Chloride Oral Soln 20 MEQ/15 ML UDC PO ×2 (07:47→20:11)
[2020-05-26] MEDS: Menthol/Lanolin/Calamine/Znox 113 GM Tube 1 APPLIC TOPICAL ×2 (07:47→20:12)
[2020-05-26] MEDS: Aspirin 81 MG TAB.CHEW PO (07:47)
[2020-05-26] MEDS: Nystatin Powder 15gm Bottle 1 APPLIC TOPICAL ×2 (07:49→20:12)
[2020-05-26] MEDS: Senna/Docusate Sodium 1 Tablet 2 TABLET PO ×2 (07:50→20:11)
[2020-05-26] MEDS: Sertraline 50 MG Tablet 25 MG PO (07:50)
[2020-05-26] MEDS: Metoprolol(XL)Succ 50 MG Tablet PO (07:51)
[2020-05-26] MEDS: Furosemide 20 MG Tablet 60 MG PO (08:43)
[2020-05-26] MEDS: Cefdinir 300 MG Capsule PO ×2 (08:44→20:11)
[2020-05-26 11:12] LABS: Potassium 3.2 mmol/L (3.5-5.1)
[2020-05-26 11:50] LABS: Bedside Glucose 162 mg/dL (70-110)
[2020-05-26] MEDS: NYSTATIN 500,000 UNIT/5 ML UDC 500000 UNIT PO ×4 (12:15→20:11)
[2020-05-26] MEDS: Insulin Lispro 100 UNIT/ML INSULN.PEN SC (12:16)
[2020-05-26] MEDS: Potassium Chloride Oral Tablet 20 MEQ 40 MEQ PO (16:23)
[2020-05-26 16:46] LABS: Bedside Glucose 127 mg/dL (70-110)
[2020-05-26] MEDS: Acetaminophen 325 MG Tablet 650 MG PO (20:13)
[2020-05-26 23:11] LABS: Bedside Glucose 202 mg/dL (70-110)
--- NOTE | 2020-05-27 00:18 | NURSING ---
staff to check and change pt attends and is noted to have hematuria in her attends with small clot at 1930. pt is currently on an antibiotic for a UTI. pt denied any discomfort with urination, or burning. pt attends was heavily saturated. rn aware 0000 staff heard pt moaning and making loud noises. staff to check on pt and is noted to be incontinent. hematuria is again noted in pts attends, this is also heavily saturated, pt continues to deny discomfort with urination. attends is shown to rn. pt cleansed and clean attends place on pt. pt repositioned for comfort. 0025 rn called hospitalist to report the hematuria and new orders received for prn bladder scans, cbc to be done in the am, follow urinary protocol per unit policy. will continue to monitor
--- NOTE | 2020-05-27 00:23 | PCM.HOSP.N ---
Hospitalist Note Called per staff with reported scant hematuria. On ASA only. Will add AM CBC, requested bladder scans to assure no urinary retention with straight catheterization if necessary and richardson if recurrent.
[2020-05-27] MEDS: Levothyroxine 50 MCG Tablet PO (06:09)
[2020-05-27 06:12] LABS: Absolute Lymphocyte Count 0.66 X10^3/uL (0.83-4.51); Absolute Neutrophil Count 6.1 X10^3/uL (2.0-7.7); Basophil# 0.09 X10^3/uL; Basophil% 1.1 % (0-1); Eosinophil# 0.09 X10^3/uL; Eosinophils% 1.1 % (0-5); Hematocrit 43.6 % (37-47); Hemoglobin 13.2 g/dL (12.0-15.0); Lymphocyte # 0.66 X10^3/ul (4.0); Lymphocyte % 8.3 % (19-41); Mean Corp Hgb Conc 30.3 g/dL (32-36); Mean Corpuscular Hgb 28.3 pg (27.0-32.0); Mean Corpuscular Volume 93.4 fL (81-99); Monocyte# 0.94 X10^3/uL; Monocyte% 11.9 % (0-10); NRBC Flagged by Analyzer 0.5 % (0-5); Platelet Count 320 K/mm3 (150-450); RBC Distribution Width CV 18.6 % (11.6-14.6); RBC Distribution Width SD 61.4 fl (35.1-43.9); Red Blood Count 4.67 M/mm3 (4.2-5.4); White Blood Count 7.9 K/mm3 (4.4-11.0)
[2020-05-27 07:15] LABS: Bedside Glucose 97 mg/dL (70-110)
[2020-05-27 07:30] VITALS: BP 116/78; PULSE 60; RESP 20; TEMP 36.3; O2SAT 95
[2020-05-27] MEDS: NYSTATIN 500,000 UNIT/5 ML UDC 500000 UNIT PO ×4 (07:52→20:11)
[2020-05-27] MEDS: Senna/Docusate Sodium 1 Tablet 2 TABLET PO ×2 (07:52→20:11)
[2020-05-27] MEDS: Potassium Chloride Oral Soln 20 MEQ/15 ML UDC PO ×2 (07:52→20:11)
[2020-05-27] MEDS: Pantoprazole Sodium 40 MG Tablet PO (07:53)
[2020-05-27] MEDS: Aspirin 81 MG TAB.CHEW PO (07:53)
[2020-05-27] MEDS: Sertraline 50 MG Tablet 25 MG PO (07:53)
[2020-05-27 07:54] VITALS: BP 117/64; PULSE 62
[2020-05-27] MEDS: Furosemide 20 MG Tablet 60 MG PO (07:54)
[2020-05-27] MEDS: Metoprolol(XL)Succ 50 MG Tablet PO (07:54)
[2020-05-27] MEDS: Calcium (Elemental) 500 MG Tablet PO ×2 (07:57→16:39)
[2020-05-27] MEDS: Nystatin Powder 15gm Bottle 1 APPLIC TOPICAL ×2 (07:58→20:11)
[2020-05-27] MEDS: Menthol/Lanolin/Calamine/Znox 113 GM Tube 1 APPLIC TOPICAL ×2 (07:58→20:11)
[2020-05-27] MEDS: Spironolactone 25 MG Tablet PO (08:00)
[2020-05-27] MEDS: Acetaminophen 325 MG Tablet 650 MG PO ×2 (08:13→20:10)
[2020-05-27] MEDS: Cefdinir 300 MG Capsule PO ×2 (09:59→20:10)
[2020-05-27] MEDS: Insulin Lispro 100 UNIT/ML INSULN.PEN SC ×2 (12:04→16:35)
[2020-05-27 12:20] LABS: Bedside Glucose 159 mg/dL (70-110)
[2020-05-27 14:29] VITALS: PULSE 60; RESP 16
[2020-05-27] MEDS: Ipratropium/Albuterol Sulfate 3 ML AMPUL.NEB INHALATION (14:29)
[2020-05-27 15:16] VITALS: BMI 32.5
[2020-05-27 16:50] LABS: Bedside Glucose 163 mg/dL (70-110)
[2020-05-27 20:00] VITALS: BP 102/53; PULSE 60; RESP 14; TEMP 36.3; O2SAT 97; BMI 32.5
[2020-05-27 21:50] LABS: Bedside Glucose 172 mg/dL (70-110)
--- NOTE | 2020-05-27 23:01 | VDLE_ITS ---
Reason For Study: Pain RIGHT LEFT CFV is compressible, spontaneous, competent GSV is normal. and demonstrates pulsatile venous flow. CFV is compressible, spontaneous, competent, Procedure and demonstrates pulsatile venous flow. This is a venous duplex using B-mode, color FV is compressible, spontaneous, competent flow and spectral Doppler. and demonstrates pulsatile venous flow. Exam performed portable in patient room. T/P Trunk is compressible. A preliminary report was called and/or faxed PopV is partially compressible with mobile to Sementi. thrombus noted. Pulsitile venous flow noted. Acute deep vein thrombosis is noted in the left PopV, PTV, PeroV, SoleusV and GastrocV. Interpretation Summary Deep venous thrombosis left popliteal vein with slightly mobile thrombus. Deep vein thrombosis left posterior tibial, peroneal, soleus, gastrocnemius veins Pulsatile venous flow consistent with proximal venous hypertension or occlusion. Clinical correlation would be indicated Patent and compressible left great saphenous vein Patent and compressible right common femoral vein but also noted to have pulsatile flow suggesting abnormal central venous outflow. Ordering Physician: Geneva Bailey Referring Physician: Linda Gresham Performed By: Zuleika Stanley RVT
--- NOTE | 2020-05-27 23:02 | NURSING ---
pt has been tearful and restless since before clinical findings were completed at 1999, pt reports that she is hurting and when asked to point where pt is rubbing her lt thigh and pointing to her lower leg. pt is restless and tearful as well as crying out in pain. pt was repositioned for comfort. rn made aware and will call for hospitalist 2300 rn to call doctor and new orders for stat BMP, Mag, stat, balta doppler to be done and neurontin 100mg to be given 5 labs are being drawn.
--- NOTE | 2020-05-27 23:04 | PCM.HOSP.N ---
Hospitalist Note Patient with complaint of LLE pain, rated 9/10, only on tylenol which is not effective. Review of history with notable recent large CVA with AF likely. Also noted prior hx DVT. Given recent large stroke to avoid conversion will defer immediately regimen, will obtain LLE Duplex to be cautious, will obtain mag/BMP given lasix/diuretic regimen also.
[2020-05-27] MEDS: Gabapentin 100 MG Capsule PO (23:36)
[2020-05-27 23:41] LABS: Anion Gap 9 (5-15); BUN 37 mg/dL (7-18); Calcium,Total 10.4 mg/dL (8.5-10.1); Chloride 97 mmol/L (98-107); Creatinine, Serum 1.37 mg/dL (0.55-1.02); EST Glomerular Filtration Rate 40 mL/min (>60); Est Glom Filt Rate - Afr Amer 48 mL/min (>60); Estimated Creatinine Clearance 30.64 ml/min; Glucose 147 mg/dL (74-106); Magnesium 2.1 mg/dL (1.6-2.6); Potassium 4.5 mmol/L (3.5-5.1); Sodium Level 137 mmol/L (136-145)
[2020-05-28 00:40] VITALS: PULSE 61; RESP 20
[2020-05-28] MEDS: Ipratropium/Albuterol Sulfate 3 ML AMPUL.NEB INHALATION ×2 (00:40→18:55)
--- NOTE | 2020-05-28 01:57 | NURSING ---
pt remains restless in the bed and crying out after neurontin was given, positioning done and reassurance given with fair effect.
[2020-05-28] MEDS: Levothyroxine 50 MCG Tablet PO (06:11)
--- NOTE | 2020-05-28 06:19 | NURSING ---
in transferring pt to the recliner this am pt arm dropped and rubbed against staff causing several skin tears to the lt forearm and elbow. area cleansed with ns and adaptic applied and wrapped with nella. rn made aware
[2020-05-28 06:28] VITALS: PULSE 64; RESP 16; O2SAT 94
--- NOTE | 2020-05-28 06:35 | NURSING ---
during am care pt to the bsc to void and have a bm. pt voided 75cc of red fluid and had a small bm stool remains firm and formed with pt straining to go, stool softners given as per order. pt tearful and reports that she is very tired this am. pt slept very little this hs
[2020-05-28 06:50] LABS: Anion Gap 6 (5-15); BUN 40 mg/dL (7-18); BUN/Creat Ratio 30.5 RATIO (10-20); Calcium,Total 10.7 mg/dL (8.5-10.1); Chloride 99 mmol/L (98-107); Creatinine, Serum 1.31 mg/dL (0.55-1.02); EST Glomerular Filtration Rate 42 mL/min (>60); Est Glom Filt Rate - Afr Amer 51 mL/min (>60); Estimated Creatinine Clearance 32.04 ml/min; Ferritin 90 ng/mL (8-252); Glucose 112 mg/dL (74-106); Iron 51 ug/dL (50-170); Iron Binding Capacity,Total 415 ug/dL (250-450); Magnesium 2.4 mg/dL (1.6-2.6); PERCENT IRON SATURATION 12.3 % (15.0-55.0); Potassium 4.3 mmol/L (3.5-5.1); Sodium Level 136 mmol/L (136-145)
[2020-05-28 06:55] LABS: Bedside Glucose 110 mg/dL (70-110)
[2020-05-28] MEDS: Aspirin 81 MG TAB.CHEW PO (07:51)
[2020-05-28] MEDS: Spironolactone 25 MG Tablet PO (07:51)
[2020-05-28] MEDS: Potassium Chloride Oral Soln 20 MEQ/15 ML UDC PO ×2 (07:51→22:39)
[2020-05-28] MEDS: Calcium (Elemental) 500 MG Tablet PO (07:51)
[2020-05-28] MEDS: Furosemide 20 MG Tablet 60 MG PO (07:51)
[2020-05-28 07:52] VITALS: PULSE 60
[2020-05-28] MEDS: Senna/Docusate Sodium 1 Tablet 2 TABLET PO ×2 (07:52→22:42)
[2020-05-28] MEDS: Metoprolol(XL)Succ 50 MG Tablet PO (07:52)
[2020-05-28] MEDS: Cefdinir 300 MG Capsule PO (07:52)
[2020-05-28] MEDS: Pantoprazole Sodium 40 MG Tablet PO (07:52)
[2020-05-28] MEDS: NYSTATIN 500,000 UNIT/5 ML UDC 500000 UNIT PO ×4 (07:52→22:39)
[2020-05-28] MEDS: Sertraline 50 MG Tablet 25 MG PO (07:53)
[2020-05-28] MEDS: Menthol/Lanolin/Calamine/Znox 113 GM Tube 1 APPLIC TOPICAL ×2 (07:59→22:43)
[2020-05-28] MEDS: Nystatin Powder 15gm Bottle 1 APPLIC TOPICAL ×2 (07:59→22:43)
[2020-05-28 09:10] VITALS: BP 104/72; PULSE 60; RESP 20; TEMP 36.5; O2SAT 97
[2020-05-28 09:22] LABS: Albumin, Serum 2.8 g/dL (3.2-5.0)
[2020-05-28 10:46] VITALS: BMI 32.5
--- NOTE | 2020-05-28 11:55 | CASEMGMT ---
Social Work IDT met with patient and dtr via conference call for Team meeting. Discussed patient's progress in therapy and nursing. Pt's level of assist varies from x1-x2; however, improving with following directions after shown. ST continues to work on automatic speech. Pt improving with min cues as well as with accuracy and consistency. Pt still drowsy which affects which diet she is most safe with. discussed starting pt on Seroquel to assist with sleep, etc. Explained Medicare DC jose j 06/09. Pt will need to transfer to SNF, as she is not able to return home. Dtr agreeable. SW to discuss options in detail with dtr. Will ReTeam next week. Will continue to follow. Jessenia Reid, APPRENTICE [employer] THIRD STEP MRI CT TECH
[2020-05-28 12:15] LABS: Bedside Glucose 130 mg/dL (70-110)
--- NOTE | 2020-05-28 12:56 | PCM.PN.BLA ---
Progress Note Geno was seen on team rounds today. Her daughter Megan participated by phone. All questions were answered prior to disconnecting. Afebrile VSS Maintaining appropriate oxygen saturation on RA Oral intake is averaging more than 1000 cc daily. She is incontinent of urine. Weight is down to 180 pounds and 5.4 ounces. The weight 1 week ago was 192 pounds and 7 ounces and she had acute on chronic congestive heart failure. Discussed with nursing - She was c/o Left thigh pain last night apparently. she denies today? Nursing is also telling me that she is having hematuria. the night [employer] told the OT that she did not sleep much last night and she is very sleepy today. she has a hx of DVT's in the past Reviewed the PT/OT/ST notes Medication list reviewed. All lab was personally reviewed. Sodium is 136 and the potassium is stable at 4.3. Serum bicarb is normal at 31. BUN is 40 and the creatinine is stable at 1.31. Calcium is high at 10.7 and when corrected for hypoalbuminemia the calcium is 11.7. Calcium has been elevated as far back as November 2019. The iron saturation is low at 12.3 and the ferritin is 90. She had 2 Hemoccult positive stools in 2019. Hemoglobin is normal at 13.2 and platelets are also normal. She is sleepy but she has been able to do therapy today. she is confused but has been making progress with ST. Lucidity seems to come and go. She is lying at approximately 15 degrees in bed and she is not tachypneic, no accessory muscle use. She does not have conversational dyspnea when she sits up. Lungs - initially had some rhonchi but they resolved with 3 coughs. she has a few persistent coarse crackles in the R base and the BS's in the bases are diminished but she has no wheezing today HRRR, no gallop appreciated. no peripheral edema + superficial varicosities of the legs. Negative Homans and negative Eric signs No rashes Impressions 1. Post stroke debility 2. Catheter associated urinary tract infection secondary to E. coli -catheter was present at admission and has since been removed 3. Acute on chronic congestive heart failure with preserved ejection fraction-better with diuresis 4. Pulmonary hypertension - moderate 5. COPD 6. Chronic renal failure stage IIIa 7. Urinary incontinence 8. Aphasia 9. History of Covid infection with pneumonia in March 2020 10. Acute hypoxic respiratory failure - she had a negative CTA of the chest in mid April 11. Diabetes mellitus type 2-diet controlled 12. depression 13. hematuria 14. hx of iron deficiency and gets IV iron regularly from Dr. Francis 15. Hypercalcemia-etiology? Increase the Sertraline to 50 mg daily. Venous duplex is ordered for today DC the calcium supplement Hold the Lasix in the AM 1 liter of NS today straight cath for a UA today.....she was treated for a UTI. Could have yeast. It was not gross hematuria.....will need to check the vagina to make sure that it is not coming from the vagina. Recheck BMP in the AM await the results of the venous US - if she does have a DVT we will not be able to fully anticoagulate due to the size of the recent CVA and risk for hemorrhagic transformation. Will need an IVC filter. If the US is negative I am going to start DVT prophylaxis with Heparin or Lovenox Why has the Calcium been high? occult malignancy? due to IV volume depletion? hyperparathyroidism? Check a PTH. Normal saline 1 L at 60 cc/h. I reviewed the H&P done by Dr. Gruber and her GM has breast CA - Geno's last mmg was in January of 2020 and it was negative for suspicious findings. Supplement iron Hold metolazone on Thursday Check a Hemoccult stool Further recommendations pending the results of the left lower extremity venous ultrasound. STROKE Vital Signs/Narrative: Vital Signs Temp Pulse Resp BP Pulse Ox 05/28/20 09:10 97.7 F L 60 20 H 104/72 97 Inpatient E&M: [id number] Subs Hosp L3
[2020-05-28] MEDS: 0.9% Normal Saline 1,000 ML 60 ML IV (14:43)
--- NOTE | 2020-05-28 16:00 | NURSING ---
Dr Bates spoke with pt's daughter Megan garcia and notified her that pt has DVT in LLE. Megan gave verbal consent for pt to have IVC filter place on 05/[address] Dumont.
[2020-05-28 16:40] LABS: Bedside Glucose 133 mg/dL (70-110)
[2020-05-28 18:55] VITALS: PULSE 63; RESP 18
[2020-05-28 20:00] VITALS: BP 125/86; RESP 18; TEMP 36.9; O2SAT 94
[2020-05-28 21:10] LABS: Bedside Glucose 97 mg/dL (70-110)
[2020-05-28] MEDS: Acetaminophen 325 MG Tablet 650 MG PO (22:51)
[2020-05-28 23:40] VITALS: BMI 32.5
[2020-05-29 03:54] LABS: Mucous, Urine 0 SEEN /hpf (<or=2+)
[2020-05-29 03:55] LABS: Color, Urine Yellow (Yellow); Glucose, Dipstick Normal (Normal); Ketone-Dipstick Negative (Negative); Leukocyte Esterase-Dipstick 500 /ul (Negative); Nitrite-Dipstick Negative (Negative); Occult Blood-Urine 250 /ul (Negative); Protein-Dipstick 30 mg/dl (Negative); Specific Gravity, Urine 1.015 (1.002-1.030); Urine Bilirubin Dipstick Negative (Negative); Urine Clarity Cloudy (Clear); Urine Urobilinogen Normal (Normal); Urine pH 6.5 (5.0 - 8.0)
[2020-05-29 04:01] LABS: Bacteria 1+ /hpf (None Seen); Red Blood Cells-Urine 10-25 SEEN /hpf (0-5); Squamous Epithelial Cells - UA 0-5 SEEN /hpf (5-10); White Blood Cells 10-25 SEEN /hpf (0-5)
[2020-05-29] MEDS: Levothyroxine 50 MCG Tablet PO (05:03)
--- NOTE | 2020-05-29 06:06 | PCM.CONS.GEN ---
Problem List (1) Acute DVT (deep venous thrombosis) Status: Acute Reason for Consult Date of Consultation: 05/28/20 Reason for Consultation: Acute DVT. In need of IVC filter History of Present Illness: The patient is a 74 year old F who is currently on the rehabilitation floor for rehab following a large stroke. Most history is provided by her daughter via phone in regards to patient. Per daughter patient is unable to be placed on blood thinners for A fib secondary to multiple hemangiomas on her brain and liver and her recent stroke. She notes the patient also has something to do with esophagus which she was told again that she is unable to have blood thinners. Patient was noted to have leg pain which prompted the DVT study. Venous duplex was notable for acute Deep venous thrombosis left popliteal vein with slightly mobile thrombus. Deep vein thrombosis left posterior tibial, peroneal, soleus, gastrocnemius veins. Patient has a history of blood clots. Per daughter, patient has never had an IVC filter. Patient is pleasantly confused. Patient was found on the bathroom floor at home with copious amounts of blood around her and she was brought to [facility] ED with the massive stroke on 05/15/20. Patient is currently on an 81 mg aspirin. She is also notable for having COVID in March 2020. Patient states she does not have a pacemaker, however further chart review a pacemaker was placed in 2014 and a mitral and aortic valve replacement in 2009. December 2018, patient underwent a TAVR at [facility]. Past Medical History Past Medical History (Chronic Problems): Chronic Problems (Last Reviewed 05/29/20 @ 06:54 by Rebecca CASTELLON PA-C) Atrial fibrillation (Chronic) Acute on chronic diastolic congestive heart failure (Chronic) Hypothyroidism (Chronic) GERD (gastroesophageal reflux disease) (Chronic) Hypokalemia (Chronic) COVID-19 (Chronic) Diabetes mellitus (Chronic) Pulmonary hypertension (Chronic) Obstructive sleep apnea (Chronic) Brain hemangioma (Chronic) Thyroid disorder (Chronic) History of pneumonia (Chronic) Hyperlipidemia (Chronic) Hypertension (Chronic) History of gallstones (Chronic) COPD (chronic obstructive pulmonary disease) (Chronic) Type 2 diabetes mellitus without complications (Chronic) Chronic bronchitis (Chronic) Cataracts, both eyes (Chronic) Asthma (Chronic) History of blood clots (Chronic) Anemia (Chronic) Seasonal allergies (Chronic) Ascites (Chronic) Dyspnea on minimal exertion (Chronic) History of permanent cardiac pacemaker placement (Chronic 10/14/15) S/P AV node ablation 12/2014 Longstanding persistent atrial fibrillation (Chronic) Non-sustained ventricular tachycardia (Chronic) 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) Non-rheumatic tricuspid valve insufficiency (Chronic) Secondary pulmonary arterial hypertension (Chronic) Essential (primary) hypertension (Chronic) GI bleed (Chronic 01/18/19) Iron deficiency anemia due to chronic blood loss (Chronic) Medical History: Medical History (Last Reviewed 05/29/20 @ 06:54 by Rebecca CASTELLON, PA-C) Dyspnea on minimal exertion (Chronic) R06.00 Longstanding persistent atrial fibrillation (Chronic) I48.11 Non-sustained ventricular tachycardia (Chronic) I47.2 Rheumatic aortic stenosis with insufficiency (Chronic) I06.2 Rheumatic mitral stenosis with insufficiency (Chronic) I05.2 Non-ischemic cardiomyopathy (Chronic) 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) I50.42, I38 Non-rheumatic tricuspid valve insufficiency (Chronic) I36.1 Secondary pulmonary arterial hypertension (Chronic) I27.21 Essential (primary) hypertension (Chronic) I10 GI bleed (Chronic) Onset Date: 01/18/19 K92.2 Iron deficiency anemia due to chronic blood loss (Chronic) D50.0 Vertigo R42 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 DVT of lower extremity, bilateral I82.403 GI AVM (gastrointestinal arteriovenous vascular malformation) K55.20 cauterized July 2018 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, liver and left eye Hypothyroidism E03.9 Obesity E66.9 Osteoarthritis M19.90 Rheumatic fever I00 Sleep apnea G47.30 Dyspnea on exertion (Resolved) R06.09 Thrombocytosis D47.3 Upper GI bleed K92.2 Anemia (Inactive) D64.9 Chronic diastolic (congestive) heart failure (Inactive) I50.32 Allergies Penicillins Allergy (Severe, Verified 05/02/20 10:13) Hives swelling of tongue and throat codeine Adverse Reaction (Severe, Verified 05/02/20 10:13) HALLUCINATIONS morphine Adverse Reaction (Severe, Verified 05/02/20 10:13) HALLUCINATIONS Muojrkt-Btz-Rsu Reductase Inhibitor Adverse Reaction (Severe, Verified 05/02/20 10:13) leg cramps leg cramps blood thinners Adverse Reaction (Uncoded 05/02/20 10:13) Bleeding Home Medications: Ambulatory Orders Medication Instructions Recorded Albuterol Sulfate [Albuterol 2 puff IH Q6H 05/15/20 Sulfate HFA] Calcium Carbonate 600 mg PO BID 05/15/20 Cetirizine HCl [All Day Allergy] 10 mg PO DAILY 05/15/20 Cholecalciferol (VIT D3) [Vitamin 1,000 unit PO DAILY 05/15/20 D3] Levothyroxine [Synthroid] 50 mcg PO DAILY 05/15/20 Metolazone [Zaroxolyn] 2.5 mg PO WE 05/15/20 Metoprolol Succinate 50 mg PO DAILY 05/15/20 Pantoprazole Sodium [Protonix] 40 mg PO DAILY 05/15/20 Potassium Chloride [Klor-Con] 20 meq PO 05/15/20 Vitamin C/Zinc PO DAILY 05/15/20 Albuterol Aerosols [Ventolin 2.5 mg INHALATION Q6HWA.RT 05/17/20 Aerosols] Aspirin 81 mg PO DAILY@0800 05/17/20 Atorvastatin Calcium 40 mg PO QHS 05/17/20 Furosemide [Lasix] 40 mg PO BID 05/17/20 Levofloxacin 500 mg PO DAILY 05/17/20 Surgical History: Surgical History (Last Reviewed 05/16/20 @ 01:[address] Merlin Espinosa MD) History of permanent cardiac pacemaker placement (Chronic) Onset Date: 01/10/15 Z95.0 S/P AV node ablation 12/2014 History of aortic valve replacement with bioprosthetic valve (Chronic) Onset Date: 01/04/19 Z95.3 AVR w/ #23 Biocor prosthetic valve 04/26/2009; Re-Do: TAVR-PATRICIA w/ 23 mm ES S3 valve within a [address] Rudi tissue valve 01/04/2019 History of mitral valve replacement with bioprosthetic valve (Chronic) Onset Date: 04/26/09 Z95.3 MVR w/ # 31 Biocar prosthetic valve 04/26/2009 Colon polyp K63.5 08/26/2019 EGD at [facility], colon polyp was clipped (recent bleeding) History of appendectomy Z90.49 History of cataract surgery Z98.49 History of hysterectomy Z90.710 History of left heart catheterization Onset Date: 11/12/18 Z98.890 mild non obstructive CAD History of radiofrequency ablation procedure for cardiac arrhythmia Onset Date: 01/10/15 Z98.890 AV Junction Ablation History of removal of cyst Z98.890 right breast History of tonsillectomy and adenoidectomy Z98.890 History of total abdominal hysterectomy Z90.710 Hx of cholecystectomy Z90.49 history bilateral cataract surgery tracheostomy Onset Date: 12/03/072007 Surgical History: adenoidectomy, appendectomy, cataract, cholecystectomy, hysterectomy, pacemaker implantation, tonsillectomy, - - Aortic and mitral valve replacement, status post EGD on 08/26/19 with colon polyp clipping, status post tracheostomy Psychiatric History: 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 psych hx [employer] History: 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 [employer] history Lives: Alone Smoking Status: Former smoker Tobacco Use: Non-smoker Alcohol: None Drugs: None - *Family History Maternal Family History: Family History (Last Reviewed 05/29/20 @ 06:55 by Rebecca CASTELLON, PA-C) Brother Kidney disease Father Heart disease Prostate cancer Grandmother Breast cancer History Items: - - anemia Paternal Family History: Family History (Last Reviewed 05/29/20 @ 06:55 by Rebecca CASTELLON, PA-C) Brother Kidney disease Father Heart disease Prostate cancer Grandmother Breast cancer History Items: Heart Disease Review of Systems Constitutional: Reports: Weakness, Fatigue HEENT: Reports: Dysphasia Cardiovascular: Denies: Chest Pain, Palpitations Respiratory: Reports: Shortness of Breath Gastrointestinal: Denies: Abdominal Pain, Nausea, Vomiting Genitourinary: Reports: Hematuria Musculoskeletal: Denies: Joint Pain, Joint Tenderness Skin: Denies: Rash, Wounds Neurological: Reports: Balance problems, Confusion Psychiatric: Denies: Anxiety, Depression, Homicidal Ideations, Suicidal Ideations Hematologic/ Lymphatic: Reports: Easy Bruising, Easy Bleeding, Hx of blood clot, Hx of blood transfusion. Denies: Anemia Patient Problems: Active and Suspected Problems (Last Reviewed 05/29/20 @ 06:54 by Rebecac CASTELLON, PAJamilC) Debility (Acute) Encephalopathy (Acute) Acute respiratory failure with hypoxia (Acute) Stroke (Acute) Expressive aphasia (Acute) Acute DVT (deep venous thrombosis) (Acute) Fall (Acute) - Physical Exam Vitals/I&O's: Vital Signs Temp Pulse Resp BP Pulse Ox 98.4 F 63 18 125/86 H 94 05/28/20 20:00 05/28/20 18:55 05/28/20 20:00 05/28/20 20:00 05/28/20 20:00 Oxygen Flow Rate (L/min) 2 Oxygen Delivery Method Nasal Cannula Weight: 180 lb 5.41 oz Body Mass Index (BMI) 32.5 Finger Stick Blood Glucose 137 Intake and Output for Last 24 Hours 05/27/20 05/28/20 05/29/20 23:59 23:59 23:59 Intake Total 1360 / 1360 690 / 810 120 / 120 Output Total 800 / 800 75 / 125 50 / 50 Balance 560 / 560 615 / 685 70 / 70 General: Alert, Cooperative, Confused HEENT: Atraumatic, PERRLA, EOMI, Normocephalic Neck: Supple, No JVD, Negative Carotid Bruits Lungs: Clear to auscultation, Normal air movement Cardiovascular: Irregular Rate - chronic A Fib Abdomen: Bowel Sounds Present, Soft, Non Tender Extremities: No edema, Capillary Refill Less than 3 Seconds Musculoskeletal: No Tenderness to Palpation of Joints or Extremities Neurological: Neuro grossly intact Psych/Mental Status: Appropriate Laboratory Results 05/28/20 06:04: Sodium 136, Potassium 4.3, Chloride 99, Carbon Dioxide 31.0, Anion Gap 6, BUN 40 H, Creatinine 1.31 H, Estim Creat Clear Calc 32.04, Est GFR (MDRD) Af Amer 51 L, Est GFR (MDRD) Non-Af 42 L, BUN/Creatinine Ratio 30.5 H, Glucose 112 H, Calcium 10.7 H, Magnesium 2.4, Iron 51, TIBC 415, Iron Saturation 12.3 L, Ferritin 90 05/28/20 06:04: Albumin 2.8 L 05/28/20 06:52: POC Glucose 110 05/28/20 11:47: POC Glucose 130 H 05/28/20 16:18: POC Glucose 133 H 05/28/20 21:04: POC Glucose 97 05/28/20 23:30: Urine Color Yellow, Urine Clarity Cloudy, Urine pH 6.5, Ur Specific Reading 1.015, Urine Protein 30 H, Urine Glucose (UA) Normal, Urine Ketones Negative, Urine Occult Blood 250 H, Urine Nitrite Negative, Urine Bilirubin Negative, Urine Urobilinogen Normal, Ur Leukocyte Esterase 500 H, Urine RBC 10-25 SEEN, Urine WBC 10-25 SEEN, Ur Squamous Epith Cells 0-5 SEEN, Urine Bacteria 1+, Urine Mucus 0 SEEN 05/29/20 05:52: Sodium Pending, Potassium Pending, Chloride Pending, Carbon Dioxide Pending, Anion Gap Pending, BUN Pending, Creatinine Pending, Est GFR (MDRD) Af Amer Pending, Est GFR (MDRD) Non-Af Pending, BUN/Creatinine Ratio Pending, Glucose Pending, Calcium Pending 05/29/20 05:52: PTH Intact Pending Current Medications Acetaminophen (Acetaminophen 325 Mg Tablet) 650 mg PO Q6H PRN PRN PRN Reason: Pain Score 1-10 Last Admin: 05/28/20 22:51 Dose: 650 mg Documented by: Albuterol/Ipratropium (Ipratropium/Albuterol Sulfate 3 Ml Ampul.Neb) 3 ml INHALATION Q4HWA.RT [facility] Last Admin: 05/28/20 18:55 Dose: 3 ml Documented by: Ascorbic Acid (Ascorbic Acid 500 Mg Tablet) 1,000 mg PO DAILY@1200 [facility] Aspirin (Aspirin 81 Mg Tab.Chew) 81 mg PO DAILY@0800 [facility] Last Admin: 05/28/20 07:51 Dose: 81 mg Documented by: Bisacodyl (Bisacodyl 10 Mg Suppository) 10 mg RC .PRN X 1 PRN PRN Reason: Constipation Calamine/Phenol (Menthol/Lanolin/Calamine/Znox 113 Gm Tube) 1 applic TOPICAL BID [facility]; Protocol Last Admin: 05/28/20 22:43 Dose: 1 applicatio Documented by: Cholecalciferol (Cholecalciferol (Vit D3) 1,000 Unit (25mcg)) 1,000 unit PO DAILY [facility] Last Admin: 05/28/20 07:53 Dose: 1,000 unit Documented by: Ferrous Sulfate (Ferrous Sulfate 325 Mg Tablet) 325 mg PO DAILY@1200 JAZMIN Furosemide (Furosemide 20 Mg Tablet) 60 mg PO DAILY [facility] Last Admin: 05/28/20 07:51 Dose: 60 mg Documented by: Ferric Sodium Gluconate Complex 250 mg/ Sodium Chloride 270 mls @ 135 mls/hr IV DAILY [facility] Stop: 05/30/20 11:59 Insulin Human Lispro (Insulin Lispro 100 Unit/Ml Insuln.Pen) 0 unit SC TIDAC [facility]; Protocol Last Admin: 05/28/20 16:19 Dose: Not Given Documented by: Levothyroxine Sodium (Levothyroxine 50 Mcg Tablet) 50 mcg PO DAILY@0600 [facility] Last Admin: 05/29/20 05:03 Dose: 50 mcg Documented by: Magnesium Hydroxide (Magnesium Hydroxide 30 Ml Udc) 30 ml PO .PRN X 1 PRN PRN Reason: Constipation Last Admin: 05/18/20 05:04 Dose: 30 ml Documented by: Metoprolol Succinate (Metoprolol(Xl)Succ 50 Mg Tablet) 50 mg PO DAILY [facility] Last Admin: 05/28/20 07:52 Dose: 50 mg Documented by: Nystatin (Nystatin 500,000 Unit/5 Ml Udc) 500,000 unit PO 4X/DAY [facility] Last Admin: 05/28/20 22:39 Dose: 500,000 unit Documented by: Nystatin (Nystatin Powder 15gm Bottle) 1 applic TOPICAL BID [facility]; Protocol Last Admin: 05/28/20 22:43 Dose: 1 applicatio Documented by: Pantoprazole Sodium (Pantoprazole Sodium 40 Mg Tablet) 40 mg PO DAILY [facility] Last Admin: 05/28/20 07:52 Dose: 40 mg Documented by: Phenol/Menthol (Phenol/Sodium Phenolate 180ml) 3 spray MUCOUS MEM Q2H PRN PRN PRN Reason: SORE THROAT Potassium Chloride (Potassium Chloride Oral Soln 20 Meq/15 Ml Udc) 20 meq PO BID [facility] Last Admin: 05/28/20 22:39 Dose: 20 meq Documented by: Senna/Docusate Sodium (Senna/Docusate Sodium 1 Tablet) 2 tablet PO BID [facility] Last Admin: 05/28/20 22:42 Dose: 2 tablet Documented by: Sertraline HCl (Sertraline 50 Mg Tablet) 50 mg PO DAILY JAZMIN Sodium Chloride (0.9% Saline Lock 10 Ml Syringe) 10 - 40 ml IV UD PRN PRN Reason: SALINE FLUSH Last Admin: 05/23/20 05:22 Dose: 10 ml Documented by: Spironolactone (Spironolactone 25 Mg Tablet) 25 mg PO DAILY JAZMIN Last Admin: 05/28/20 07:51 Dose: 25 mg Documented by: Assessment/Plan All Active Problems (Last Reviewed 05/29/20 @ 06:54 by Rebecca CASTELLON, PA-C) Debility (Acute) Encephalopathy (Acute) Acute respiratory failure with hypoxia (Acute) Stroke (Acute) Expressive aphasia (Acute) Acute DVT (deep venous thrombosis) (Acute) Multiple skin tears (Acute) Hypoxia (Acute) Fall (Acute) Facial contusion (Acute) CHF (congestive heart failure) (Acute) Acute hypoxemic respiratory failure (Acute) Dyspnea on exertion (Resolved) Elevated troponin (Resolved) Epistaxis (Resolved) Iron deficiency anemia (Resolved) I have been consulted in conjunction with Dr. Dumont. Dr. Dumont will plan to perform an inferior vena cava filter placement. Procedure details, risks and benefits have been explained to the patient's POA, her daughter Megan Curtis. Patient's daughter and patient have had the opportunity to ask and have questions answered. Patient verbally understands and agrees with the plan. We will proceed with the scheduled procedure as permitted. Patient to be NPO after midnight. Verbal consent was obtained via nursing staff/Dr. Bates from patient's KRISTAAMegan. Thank you for allowing us to participate in this patient's care. Office Visits / Consults: [id number] OP Consult L3
[2020-05-29 06:24] LABS: Anion Gap 7 (5-15); BUN 40 mg/dL (7-18); BUN/Creat Ratio 29.4 RATIO (10-20); Calcium,Total 10.4 mg/dL (8.5-10.1); Chloride 101 mmol/L (98-107); Creatinine, Serum 1.36 mg/dL (0.55-1.02); EST Glomerular Filtration Rate 40 mL/min (>60); Est Glom Filt Rate - Afr Amer 49 mL/min (>60); Estimated Creatinine Clearance 30.86 ml/min; Glucose 92 mg/dL (74-106); Potassium 4.4 mmol/L (3.5-5.1); Sodium Level 138 mmol/L (136-145)
[2020-05-29 06:31] LABS: Bedside Glucose 90 mg/dL (70-110)
[2020-05-29 07:05] VITALS: PULSE 60; RESP 26; O2SAT 96
[2020-05-29] MEDS: Ipratropium/Albuterol Sulfate 3 ML AMPUL.NEB INHALATION ×2 (07:05→19:40)
[2020-05-29 08:07] VITALS: BP 124/64; PULSE 60; RESP 18; TEMP 36.3; O2SAT 93
[2020-05-29 08:26] LABS: PTHIN 14.4 pg/mL (18.4-80.1)
--- NOTE | 2020-05-29 10:10 | NURSING ---
off unit for ivc filter placement
--- NOTE | 2020-05-29 11:22 | PCM.PN.BLA ---
Progress Note Afebrile VSS-blood pressure is well controlled. Maintaining appropriate oxygen saturation on RA-she is 93% on room air today. Oral intake is poor for yesterday Discussed with nursing - no problems that need addressed Reviewed the PT/OT/ST notes Medication list reviewed. All lab is personally reviewed. Sodium is 138 today and the potassium is stable at 4.4. The BUN is 40 which is stable and the creatinine is 1.36, up from 1.31 yesterday. The UA yesterday had 10-25 RBCs and 10-25 WBCs with 1+ bacteria. Urine culture is pending. She is afebrile. PTH is low at 14.4. The calcium today is 10.4 and when corrected for hypoalbuminemia the calcium is 11.4. At admission to the hospital the calcium corrected for hypoalbuminemia was still high at 10.8. It is likely increased now secondary to intravascular volume depletion. Etiology of the hypercalcemia is not known at this time. She was taking 600 mg of calcium BID as an OP. I did not get the opportunity to exam today because she was in the OR and then I had to leave to go to another office. The IVC was dilated and [facility] does not have an IVC filter large enough to fit the IVC. Dr. Dumont says she needs a 44mm filter. I made a call to [facility] and spoke to the interventional radiologist who told me that the largest filter they have is a 40. She has a DVT in the popliteal Vein which is mobile. She can not be anticoagulated because of the size of the CVA and the risk for hemorrhagic conversion. [facility] teleneurology was consulted but, they have not reached out to schedule the consult. She has a known hx of DVT's in the past and also PAF but, she is not on anticoagulation due to recurrent acute GI bleeds and chronic GI blood loss requiring regular transfusions of IV iron. The [employer] called [facility] transfer line and they said they could not accept transfer from an acute rehab unit and she would need to go to the ER to be transferred or be admitted to the Hospital. She is going to be transferred to the ED and [facility] will be contacted. I think she would be best served by transfer to a tertiary hospital and she has been a pt at [facility] in the past many times in the past and recently had a TAVR there. I was contacted by the nursing cottage supervisor and told we are not supposed to transfer to the ED from an acute inpatient rehab unit. She would need to be transferred to the acute hospital inpt. she is going to investigate this a little more. I spoke with Geno Guzman's dtr who is a POA, and she would like to change the code status to DNR CCA with no intubation. I contacted [facility] transfer hotline again and spoke to Alvaro and explained that she is not in a NH she is in an INPT acute rehab unit and she is an inpt. they will be able to acept her from the rehab unit and I am waiting for the doctor to call me back to see if they are able to take this patient in transfer. STROKE Vital Signs/Narrative: Vital Signs Temp Pulse Resp BP Pulse Ox 05/29/20 08:07 97.4 F L 60 18 124/64 H 93
--- NOTE | 2020-05-29 12:15 | PCM.OPRPT ---
Problem List (1) Acute DVT (deep venous thrombosis) Status: Acute Qualifiers: Affected thrombotic vein of extremity: popliteal Laterality: left Report of Operation Date of Procedure: 05/29/20 Pre-Operative Diagnosis: Left lower extremity deep venous thrombosis with popliteal deep venous thrombosis and loose thrombus Post-Operative Diagnosis: Patent inferior vena cava and proximal bilateral common iliac veins with diffuse enlargement Surgery/Procedure Performed:: Right internal jugular approach inferior venacavogram. Aborted placement of Rabia filter Description of Surgical Findings:: Timeout and informed consent was obtained. Informed consent was obtained from the patient's daughter who is power of criminal defense attorney. The patient was taken to the procedure room placed upon the table. The right neck was sterilely prepped and draped. Ultrasound was performed to identify the right internal jugular vein. 2% lidocaine was instilled under ultrasound guidance. A total of 5 cc was used. A micropuncture needle was used to gain access to the right internal jugular vein followed by micropuncture wire. Micropuncture sheath. 035 J-wire. A 5 Colombian short sheath dilator. Then using an 035 J-wire a 5 Colombian universal flush catheter was placed into the right common iliac vein. Isovue contrast to the rate of 15 cc a second for 20 cc was used to obtain an inferior venacavogram. A ruler was placed across the anterior abdomen. The inferior venacavogram demonstrates patent bilateral common neck veins patent inferior vena cava. The measurement of the vena cava approximately 44 mm. The vena cava appeared to be diffusely enlarged. There was no thrombus. Although I anticipate some size mismatch due to the placement of the ruler overlying the anterior abdominal wall I did not feel comfortable assuming that there would be a 14 mm difference. The only filter available to me is a Rabia filter with a 28 to 30 mm maximum diameter placement size. I discussed the findings with the patient's power of criminal defense attorney her daughter. We have aborted placing the filter. I have attempted contact of Dr. Bates. I will recommend tertiary referral if indeed a filter exists that would accommodate this larger diameter vena cava. Chon Dumont M.D., F.A.C.S. Type of Anesthesia:: Local
[2020-05-29 13:40] LABS: Bedside Glucose 82 mg/dL (70-110)
[2020-05-29 14:11] VITALS: BP 110/60; PULSE 66
[2020-05-29] MEDS: Pantoprazole Sodium 40 MG Tablet PO (14:11)
[2020-05-29] MEDS: Sertraline 50 MG Tablet PO (14:11)
[2020-05-29] MEDS: Metoprolol(XL)Succ 50 MG Tablet PO (14:11)
[2020-05-29] MEDS: Ascorbic Acid 500 MG Tablet 1000 MG PO (14:11)
[2020-05-29] MEDS: Potassium Chloride Oral Soln 20 MEQ/15 ML UDC PO ×2 (14:11→22:33)
[2020-05-29] MEDS: Spironolactone 25 MG Tablet PO (14:12)
[2020-05-29] MEDS: Ferrous Sulfate 325 MG Tablet PO (14:12)
[2020-05-29] MEDS: Menthol/Lanolin/Calamine/Znox 113 GM Tube 1 APPLIC TOPICAL ×2 (14:17→22:34)
[2020-05-29] MEDS: Sodium Ferric Gluconat 250 MG in 0.9% Normal Saline 250 ML 135 MG IV (14:23)
[2020-05-29] MEDS: 0.9% Saline Lock 10 ML Syringe IV ×2 (14:23→22:36)
[2020-05-29] MEDS: 0.9% NaCl IVPB Med Flush (250 mL) 15 ML IV (14:23)
[2020-05-29 15:55] VITALS: BMI 32.5
[2020-05-29 16:06] LABS: Bedside Glucose 113 mg/dL (70-110)
[2020-05-29] MEDS: 0.9% Normal Saline 1,000 ML 60 ML IV (16:40)
[2020-05-29] MEDS: NYSTATIN 500,000 UNIT/5 ML UDC 500000 UNIT PO ×2 (17:57→22:33)
[2020-05-29 19:21] VITALS: BP 103/65; PULSE 60; RESP 18; TEMP 36.6; O2SAT 97
[2020-05-29 19:40] VITALS: PULSE 48; RESP 18; O2SAT 94
[2020-05-29] MEDS: Senna/Docusate Sodium 1 Tablet 2 TABLET PO (22:34)
[2020-05-29] MEDS: Nystatin Powder 15gm Bottle 1 APPLIC TOPICAL (22:35)
[2020-05-29] MEDS: Acetaminophen 325 MG Tablet 650 MG PO (22:36)
[2020-05-29 23:00] VITALS: BMI 32.5
[2020-05-29 23:00] LABS: Bedside Glucose 149 mg/dL (70-110)
--- NOTE | 2020-05-30 01:25 | NURSING ---
2029; CALL FROM [facility] WITH ROOM ASSIGNMENT FOR PT AND ACCEPTING DR. SHE WILL BE GOING TO [id number]. ACCEPTING DR. WILL BE DR. ROACH HOSPITALIST/MEDICINE. 2049; CALL SET UP WITH [facility]. SPOKE WITH NURA. ETA TO TRANSPORT PT TO [facility] IS 2-3 HOURS. 2099; CALL TO [facility] [phone]. SPOKE TO MILAN. REPORT ON PT CARMELO CASTRO GIVEN. ALL QUESTIONS ANSWERED. RETURN NUMBER GIVEN FOR FURTHER QUESTIONS. 2104; STAS GONZALEZ RN SPOKE TO [facility] PT DAUGHTER AND LET HER KNOW PT WILL TRANSFER. SHE REQUESTS ON PT CPAP AND GLASSES GO WITH PT. FAMILY WOULD LIKE TO MANUFACTURING SPECIALIST REST OF HER BELONGINGS AT [facility]. THIS WILL BE PASSED ON TO THE NEXT SHIFT. PT BELONGINGS PACKED IN HER ROOM AT THIS TIME. CONSENT SIGNED PER VERBAL AGREEMENT OVER THE PHONE WITH ASIA ANDRADE AGREEING TO SEND PT TO [facility]. 2114; CALL TO RADIOLOGY TO HAVE ALL FILMS COPIED TO TRANSPORT WITH PT. NOTIFIED [facility] CLAUDIA SWALLOW RESULTS WILL BE SENT ELETRONIC DUE TO THE LARGE FILM. ALL PAPERS FILLED OUT AND COPIED FOR TRANSPORT. 2299; PT IV SL. PT READY FOR TRANSPORT.
--- NOTE | 2020-05-30 02:41 | NURSING ---
[facility] arrived to transport pt to [facility].
--- NOTE | 2020-05-30 03:00 | NURSING ---
0245; [facility] HERE TO TRANSPORT PT TO [facility]. REPORT GIVEN TO TRANSPORTER. COPY OF DNR PROVIDED. PT IN GOOD SPIRITS WITH TRANSPORTERS. PT HAD EPISODE OF DRY HEAVING JUST PRIOR TO ARRIVAL OF [place]QU[place]. VSS. 106/62, 60, 22, 94% ON 2 L PER NS. NO FURTHER EPISODES NOTED. PT IPAD AND PHONE ARE LOCKED IN MED ROOM FOR FAMILY TO GEOGRAPHY HEAD AT THEIR CONVENIENCE. AIRCRAFT LAUNCH AND RECOVERY TECHNICIAN NOTIFIED OF PT TRANSFER. CALL TO REGISTRATION TO NOTIFY THEM.
--- NOTE | 2020-06-04 08:30 | DS.PCM_ITS ---
Discharge Date and Diagnosis - Problem List Patient Problems: Active and Suspected Problems (Last Reviewed 05/29/20 @ 06:54 by Rebecca CASTELLON, CANDE-C) Debility (Acute) Encephalopathy (Acute) Acute respiratory failure with hypoxia (Acute) Stroke (Acute) Expressive aphasia (Acute) Acute DVT (deep venous thrombosis) (Acute) Fall (Acute) Date of Admission: 05/17/20 Date of Discharge: 05/30/20 - Primary Discharge Diagnosis Acute Problems: Active Problems (Last Reviewed 05/29/20 @ 06:54 by Rebecca CASTELLON, PA-C) Post Stroke Debility (Acute) Encephalopathy (Acute) Acute respiratory failure with hypoxia (Acute) Stroke - 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 coli ESBL Acute DVT LLE with mobile clot(deep venous thrombosis) (Acute) Acute on chronic diastolic congestive heart failure Hypokalemia Thrush Hypercalcemia with a low PTH Depression - Secondary Discharge Diagnosis Chronic Problems: Chronic Problems (Last Reviewed 05/29/20 @ 06:54 by Rebecca CASTELLON, PA-C) Paroxysmal Atrial fibrillation (Chronic) Chronic diastolic congestive heart failure (Chronic) Hypothyroidism (Chronic) GERD (gastroesophageal reflux disease) (Chronic) Hypokalemia (Chronic) COVID-19 in March 2020 (Chronic) Diabetes mellitus II(Chronic) Moderate to severe Pulmonary hypertension (Chronic) Obstructive sleep apnea (Chronic) Brain hemangioma (Chronic) Hyperlipidemia (Chronic) Hypertension (Chronic) COPD/chronic bronchitis (Chronic) Asthma (Chronic) History of VTE (Chronic) Chronic iron deficiency due to chronic heme + stools (Chronic) Seasonal allergies (Chronic) Ascites (Chronic) History of permanent cardiac pacemaker placement (Chronic 01/10/15) S/P AV node ablation 12/2014 Non-sustained ventricular tachycardia (Chronic) Rheumatic aortic stenosis with insufficiency (Chronic) - S/P AV replacement Rheumatic mitral stenosis with insufficiency (Chronic) - S/P MV replacement History of aortic valve replacement with bioprosthetic valve (Chronic 01/04/19) AVR w/ #23 Biocor prosthetic valve 04/26/2009; Re-Do: TAVR-PATRICIA w/ 23 mm ES S3 valve within a [address] 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 Cardiomegaly. Electronically Signed: Nate Walker MD at 14:28 EST , Service support , 05/28/20 Interpretation Summary Deep venous thrombosis left popliteal vein with slightly mobile thrombus. Deep vein thrombosis left posterior tibial, peroneal, soleus, gastrocnemius veins Pulsatile venous flow consistent with proximal venous hypertension or occlusion. Clinical correlation would be indicated Patent and compressible left great saphenous vein Patent and compressible right common femoral vein but also noted to have pulsatile flow suggesting abnormal central venous outflow. Microbiology 05/28/20 23:50 Urine Catheter - Catheter Urine Culture - Final Presumptive E. coli 05/21/20 11:00 Urine Catheter - Catheter Urine Culture - Final Presumptive E. coli Laboratory Last Values WBC 7.9 K/mm3 (4.4-11.0) 05/27/20 05:35 RBC 4.67 M/mm3 (4.2-5.4) 05/27/20 05:35 Hgb 13.2 g/dL (12.0-15.0) 05/27/20 05:35 Hct 43.6 % (37-47) 05/27/20 05:35 MCV 93.4 fL (81-99) 05/27/20 05:35 MCH 28.3 pg (27.0-32.0) 05/27/20 05:35 MCHC 30.3 g/dL (32-36) L 05/27/20 05:35 RDW Std Deviation 61.4 fl (35.1-43.9) H 05/27/20 05:35 RDW Coeff of [place] 18.6 % (11.6-14.6) H 05/27/20 05:35 Plt Count 320 K/mm3 (150-450) 05/27/20 05:35 MPV 10.0 fl (6.2-12.0) 05/27/20 05:35 Immature Gran % (Auto) 0.600 % (0.0-0.9) 05/27/20 05:35 Neut % (Auto) 77.0 % (47-70) H 05/27/20 05:35 Lymph % (Auto) 8.3 % (19-41) L 05/27/20 05:35 [place] % (Auto) 11.9 % (0-10) H 05/27/20 05:35 Eos % (Auto) 1.1 % (0-5) 05/27/20 05:35 Baso % (Auto) 1.1 % (0-1) H 05/27/20 05:35 Absolute Neuts (auto) 6.1 X10^3/uL (2.0-7.7) 05/27/20 05:35 Absolute Lymphs (auto) 0.66 X10^3/uL (0.83-4.51) L 05/27/20 05:35 Nucleated RBC % 0.5 % (0-5) 05/27/20 05:35 Specimen Type CARLOS 05/25/20 11:10 VBG pH 7.36 (7.32-7.42) 05/25/20 11:10 VBG pO2 51 mmHg (25-40) H 05/25/20 11:10 VBG HCO3 39 mmol/L (22-26) H 05/25/20 11:10 VBG Total CO2 41 mmol/L (23-33) H 05/25/20 11:10 VBG O2 Sat (Calc) 82 % (50-70) H 05/25/20 11:10 VBG Base Excess 14 mmol/L (-1.0-3.5) H 05/25/20 11:10 POC Mix VBG pCO2 Pt Tmp 68.3 mmHg (41-51) H 05/25/20 11:10 O2 Delivery Device Cannula 05/25/20 11:10 Liter Flow 2.0 /min 05/25/20 11:10 Sodium 138 mmol/L (136-145) 05/29/20 05:52 Potassium 4.4 mmol/L (3.5-5.1) 05/29/20 05:52 Chloride 101 mmol/L (98-107) 05/29/20 05:52 Carbon Dioxide 30.0 mmol/L (21.0-32.0) 05/29/20 05:52 Anion Gap 7 (5-15) 05/29/20 05:52 BUN 40 mg/dL (7-18) H 05/29/20 05:52 Creatinine 1.36 mg/dL (0.55-1.02) H 05/29/20 05:52 Estim Creat Clear Calc 30.86 ml/min 05/29/20 05:52 Est GFR (MDRD) Af Amer 49 mL/min (>60) L 05/29/20 05:52 Est GFR (MDRD) Non-Af 40 mL/min (>60) L 05/29/20 05:52 BUN/Creatinine Ratio 29.4 RATIO (10-20) H 05/29/20 05:52 Glucose 92 mg/dL (74-106) 05/29/20 05:52 Calcium 10.4 mg/dL (8.5-10.1) H 05/29/20 05:52 Magnesium 2.4 mg/dL (1.6-2.6) 05/28/20 06:04 Iron 51 ug/dL (50-170) 05/28/20 06:04 TIBC 415 ug/dL (250-450) 05/28/20 06:04 Iron Saturation 12.3 % (15.0-55.0) L 05/28/20 06:04 Ferritin 90 ng/mL (8-252) 05/28/20 06:04 B-Natriuretic Peptide 858.9 pg/mL (0-100) H 05/21/20 10:58 Albumin 2.8 g/dL (3.2-5.0) L 05/28/20 06:04 Vitamin D 25-Hydroxy 109.0 ng/mL 05/29/20 05:52 PTH Intact 14.4 pg/mL (18.4-80.1) L 05/29/20 05:52 Urine Color Yellow (Yellow) 05/28/20 23:30 Urine Clarity Cloudy (Clear) 05/28/20 23:30 Urine pH 6.5 (5.0 - 8.0) 05/28/20 23:30 Ur Specific [place] 1.015 (1.002-1.030) 05/28/20 23:30 Urine Protein 30 mg/dl (Negative) H 05/28/20 23:30 Urine Glucose (UA) Normal mg/dl (Normal) 05/28/20 23:30 Urine Ketones Negative mg/dl (Negative) 05/28/20 23:30 Urine Occult Blood 250 /ul (Negative) H 05/28/20 23:30 Urine Nitrite Negative (Negative) 05/28/20 23:30 Urine Bilirubin Negative mg/dL (Negative) 05/28/20 23:30 Urine Urobilinogen Normal mg/dl (Normal) 05/28/20 23:30 Ur Leukocyte Esterase 500 /ul (Negative) H 05/28/20 23:30 Urine RBC 10-25 SEEN /hpf (0-5) 05/28/20 23:30 Urine WBC 10-25 SEEN /hpf (0-5) 05/28/20 23:30 Ur Squamous Epith Cells 0-5 SEEN /hpf (5-10) 05/28/20 23:30 Urine Bacteria 1+ /hpf (None Seen) 05/28/20 23:30 Urine Mucus 0 SEEN /hpf (<or=2+) 05/28/20 23:30 POC Glucose 149 mg/dL (70-110) H 05/29/20 22:58 05/21/2020 Catheterized urine positive for E. coli-sensitive to everything but Fluoroquinolones 05/28/2020 Catheterized urine positive for E. coli ESBL Consultations 05/17/20 Consult: Onc/Wound/wardrobe assistant Routine Comment: Reason for Consult:: follow up on wounds from ICU admit Dr. Chon Dumont - General surgery/vascular surgery Operations: None Procedures: - - attempted IVC filter on 05/29/20 - did not have a large enough filter Summary of Care Provided: Geno Flores is a 74 year old F with a past medical history of biatrial enlargement, moderate to severe pulmonary hypertension with a dilated right ventricle and global systolic dysfunction,, history of bioprosthetic aortic valve replacement in 2010 and TAVR in 2019, history of mitral valve replacement in 2019, history of biventricular diastolic and systolic congestive heart failure with preserved ejection fraction, chronic paroxysmal atrial fibrillation, history of nonsustained ventricular tachycardia, history of pacemaker implantation, essential hypertension, diabetes mellitus type 2, gastrointestinal AVM with chronic GI bleed, chronic iron deficiency requiring IV iron supplementation, hemangiomas of the eye, liver and brain, obstructive sleep apnea, colon polyps, COPD/chronic bronchitis, tobacco dependence in remission (quit in 2008), chronic renal failure stage IIIa, osteopenia and pneumonia secondary to Covid in March 2020 who was admitted to the acute inpatient rehab unit at [facility] on 05/17/2020 with debility secondary to presumed embolic CVA in the left temporal and left thalamus. She had aphasia, right hemiparesis and dysarthria. She had a Carey catheter at presentation to the rehab unit. A UA on 05/21/2020 had positive nitrates and 25-50 WBCs with 3+ bacteria. Urine culture grew E. coli resistant to brijesh quinolones. She was treated with Rocephin followed by cefdinir for a total of 7 days of antibiotics. The catheter was discontinued. She was Afebrile throughout her stay on rehab. Her last 2 days on rehab she seemed to be more confused and fatigued. On 05/28/2020 nursing reported some mild hematuria. Geno denied any dysuria. A straight cath UA was checked and it was nitrite negative. There were 10-25 RBCs and 10-25 WBCs and 1+ urine bacteria. We elected not to start an antibiotic because she was afebrile, had no dysuria, no increased frequency and a CBC 2 days early had a normal WBC count. the urine culture grew E. Coli ESBL but the patient was discharged to the [facility] main campus prior to the results being reported. Also of note was the calcium was increasing. It had been increased on multiple lab draws since November of 2019. On 05/28/2020 the calcium corrected for hypoalbuminemia was 11.7. A PTH was checked and it was low. Diuretics were placed on hold and the patient was gently hydrated. She complained of Left leg pain in the middle of the night on 05/28/20 and there was swelling present. She has a hx of VTE in the past and a venous US was ordered. The venous ultrasound showed deep venous thrombosis in the left popliteal vein with slightly mobile thrombus. There was deep vein thrombosis in the left posterior tibial, peroneal, soleus, gastrocnemius veins. There was pulsatile venous flow consistent with proximal venous hypertension or occlusion. The left great saphenous vein was patent and compressible as was the right common femoral vein. She can not be anticoagulated due to hemangiomas in the eye liver and brain and due to the chronic GI blood loss due to AVM's. Dr. Dumont was consulted to place an IVC filter. She was taken to the public works laborer for placement of an IVC filter on 05/29/20. The Inferior venacavagram demonstrated patent bilateral, neck veins and a patent inferior vena cava. The measurement of the vena cava was approximately 44 mm and the vena cava was noted to be diffusely enlarged. The only filter available at [facility] was a Todd 28-30 mm filter and the procedure was aborted. I called [facility] and the largest filter they had was a 40 mm. I then called [facility] and they accepted Geno for transfer. she was discharged from [facility] on 05/30/20 at approximately 3 AM to [facility]. I spoke to Geno's dtr Megan several times on05/29/20 and she was agreeable with the transfer. Megan and I also discussed code status and given Geno's multiple comorbidities the code status was changed from Full code to DNR CCA with no intubation. She was very sleepy the last time I saw Geno and she was confused. She had conscious sedation for the IVC filter. She was lying at approximately 30 degrees in bed and was not tachypneic and had no accessory muscle use. Lungs were diminished but clear to auscultation Heart-regular rhythm, no gallop Abdomen-soft, no guarding with palpation, normal bowel sounds present No significant peripheral edema Many superficial varicosities of the legs. She did not complain of pain in the left leg with dorsiflexion. No rashes, no skin breakdown This note was generated with [employer] dictation software. It may contain incorrect words, spelling, and punctuation that were not noted in checking the note before signing. Patient Problems: Active and Suspected Problems (Last Reviewed 05/29/20 @ 06:54 by Rebecca CASTELLON, PAAnne Marie) Debility (Acute) Encephalopathy (Acute) Acute respiratory failure with hypoxia (Acute) Stroke (Acute) Expressive aphasia (Acute) Acute DVT (deep venous thrombosis) (Acute) Fall (Acute) - Physical Exam Vitals/I&O's: Vital Signs Temp Pulse Resp BP Pulse Ox 98 F 48 L 18 103/65 94 05/29/20 19:21 05/29/20 19:40 05/29/20 19:40 05/29/20 19:21 05/29/20 19:40 Oxygen Flow Rate (L/min) 2 Oxygen Delivery Method Nasal Cannula Weight: 181 lb 3.52 oz Body Mass Index (BMI) 32.5 Finger Stick Blood Glucose 137 Home Medications: Medications to take at Discharge Albuterol Sulfate [Albuterol Sulfate HFA] 2 puff IH Q6H 05/15/20 Calcium Carbonate 600 mg PO BID 05/15/20 Cetirizine HCl [All Day Allergy] 10 mg PO DAILY 05/15/20 Cholecalciferol (VIT D3) [Vitamin D3] 1,000 unit PO DAILY 05/15/20 Levothyroxine [Synthroid] 50 mcg PO DAILY 05/15/20 Metolazone [Zaroxolyn] 2.5 mg PO WE 05/15/20 Metoprolol Succinate 50 mg PO DAILY 05/15/20 Pantoprazole Sodium [Protonix] 40 mg PO DAILY 05/15/20 Potassium Chloride [Klor-Con] 20 meq PO DAILY 05/15/20 Vitamin C/Zinc PO DAILY 05/15/20 Albuterol Aerosols [Ventolin Aerosols] 2.5 mg INHALATION Q6HWA.RT 05/17/20 Aspirin 81 mg PO DAILY@0800 05/17/20 Atorvastatin Calcium 40 mg PO QHS 05/17/20 Furosemide [Lasix] 40 mg PO BID 05/17/20 Levofloxacin 500 mg PO DAILY 05/17/20 Primary Care Physician: Linda Gresham MD [Primary Care Provider] - Please Follow Up With: Jr Smith MD When: 2-4 weeks Please Follow Up With: Thien Husain MD When: 2-4 weeks Disposition: Acute care Hospital - [facility] Minutes spent on discharge:: 60 Patient Condition:: Guarded Medical Necessity - Tobacco Use Smoking Status: Former smoker Tobacco Use: Non-smoker Meaningful Use Info Meaningful Use Diagnoses (Choose all that apply): Ischemic CVA - CVA Therapy Assessed for PT,OT and/or ST?: Yes - Ischemic Stroke Antithrombotic order at d/c?: Yes Dx of Atrial fib/flutter?: Yes Anticoagulant at discharge?: No Reason anticoagulant not ordered: Treatment not Indicated - she has chronic GI blood loss from AVM's and she also has hemangiomas in the eye, brain and liver Statins at discharge?: Yes Primary Dx Acute Ischemic CVA?: Yes IV tPA ordered during stay?: No Reason IV t-PA not ordered: Treatment not Indicated Inpatient E&M: 13073 Disch Hosp
== END 2020-05-30 02:45 | disposition short-term general hospital (02) | DRG 56 ==
PROVIDERS: Family Medicine; Internal Medicine; Admitting Provider Family Medicine Geriatric Medicine; PCP Internal Medicine; Visit Provider Family Medicine Geriatric Medicine
DX: I69.320 Aphasia following cerebral infarction (principal); J96.01 Acute respiratory failure with hypoxia; T83.511A Infection and inflammatory reaction due to indwelling urethral catheter, initial encounter; N39.0 Urinary tract infection, site not specified; I13.0 Hypertensive heart and chronic kidney disease with heart failure and stage 1 through stage 4 chronic kidney disease, or unspecified chronic kidney disease; I50.42 Chronic combined systolic (congestive) and diastolic (congestive) heart failure; I48.11 Longstanding persistent atrial fibrillation; I42.8 Other cardiomyopathies; Z16.23 Resistance to quinolones and fluoroquinolones; I82.432 Acute embolism and thrombosis of left popliteal vein; I47.2 Ventricular tachycardia; E03.9 Hypothyroidism, unspecified; K21.9 Gastro-esophageal reflux disease without esophagitis; E87.6 Hypokalemia; E11.22 Type 2 diabetes mellitus with diabetic chronic kidney disease; N18.31 Chronic kidney disease, stage 3a; G47.33 Obstructive sleep apnea (adult) (pediatric); J44.9 Chronic obstructive pulmonary disease, unspecified; E78.5 Hyperlipidemia, unspecified; Z95.3 Presence of xenogenic heart valve; Z95.0 Presence of cardiac pacemaker; I27.21 Secondary pulmonary arterial hypertension; Z86.16 Personal history of COVID-19; M19.90 Unspecified osteoarthritis, unspecified site; E66.9 Obesity, unspecified; Z87.891 Personal history of nicotine dependence; Z68.32 Body mass index [BMI] 32.0-32.9, adult; S00.83XD Contusion of other part of head, subsequent encounter; X58.XXXD Exposure to other specified factors, subsequent encounter; E55.9 Vitamin D deficiency, unspecified; B37.9 Candidiasis, unspecified; B96.20 Unspecified Escherichia coli [E. coli] as the cause of diseases classified elsewhere; Y82.8 Other medical devices associated with adverse incidents; R32 Unspecified urinary incontinence; F32.9 Major depressive disorder, single episode, unspecified; D18.02 Hemangioma of intracranial structures; D50.0 Iron deficiency anemia secondary to blood loss (chronic); Z53.09 Procedure and treatment not carried out because of other contraindication; I08.0 Rheumatic disorders of both mitral and aortic valves
CPT/HCPCS: 36010; 36415; 71045; 74230; 75825; 76937; 80048; 81001; 82040; 82306; 82728; 82803; 82962; 83540; 83550; 83735; 83880; 83970; 84132; 85025; 87086; 87088; 87186; 92507; 92523; 92526; 92610; 92611; 93971; 94640; 97110; 97112; 97116; 97140; 97163; 97166; 97530; 97535; 97802; 99251; J7030; J7040; J7050; Q9967; A4216; C1769; G0463; J1940; J2916

== ENCOUNTER 2020-05-29 10:02 | Day surgery (SDC) | payer MEDICARE, OTHER, SELFPAY ==
[2019-05-18 07:06] VITALS: BMI 34.4
[2020-05-28 10:46] VITALS: BMI 32.5
[2020-05-29 09:55] VITALS: BMI 31.8
--- NOTE | 2020-05-29 12:15 | OP_ITS ---
Problem List (1) Acute DVT (deep venous thrombosis) Status: Acute Qualifiers: Affected thrombotic vein of extremity: popliteal Laterality: left Report of Operation Date of Procedure: 05/29/20 Pre-Operative Diagnosis: Left lower extremity deep venous thrombosis with popliteal deep venous thrombosis and loose thrombus Post-Operative Diagnosis: Patent inferior vena cava and proximal bilateral common iliac veins with diffuse enlargement Surgery/Procedure Performed:: Right internal jugular approach inferior venacavogram. Aborted placement of Rabia filter Description of Surgical Findings:: Timeout and informed consent was obtained. Informed consent was obtained from the patient's daughter who is power of estate planning attorney. The patient was taken to the procedure room placed upon the table. The right neck was sterilely prepped and draped. Ultrasound was performed to identify the right internal jugular vein. 2% lidocaine was instilled under ultrasound guidance. A total of 5 cc was used. A micropuncture needle was used to gain access to the right internal jugular vein followed by micropuncture wire. Micropuncture sheath. 035 J-wire. A 5 American short sheath dilator. Then using an 035 J-wire a 5 American universal flush catheter was placed into the right common iliac vein. Isovue contrast to the rate of 15 cc a second for 20 cc was used to obtain an inferior venacavogram. A ruler was placed across the anterior abdomen. The inferior venacavogram demonstrates patent bilateral common neck veins patent inferior vena cava. The measurement of the vena cava approximately 44 mm. The vena cava appeared to be diffusely enlarged. There was no thrombus. Although I anticipate some size mismatch due to the placement of the ruler overlying the anterior abdominal wall I did not feel comfortable assuming that there would be a 14 mm difference. The only filter available to me is a Rabia filter with a 28 to 30 mm maximum diameter placement size. I discussed the findings with the patient's power of estate planning attorney her daughter. We have aborted placing the filter. I have attempted contact of Dr. Bates. I will recommend tertiary referral if indeed a filter exists that would accommodate this larger diameter vena cava. hCon Dumont M.D., F.A.C.S. Type of Anesthesia:: Local
== END 2020-05-29 13:25 ==
LOC: CLSP 10:04
PROVIDERS: PCP Internal Medicine; Visit Provider Surgery
DX: I82.403 Acute embolism and thrombosis of unspecified deep veins of lower extremity, bilateral (principal); D50.0 Iron deficiency anemia secondary to blood loss (chronic); K55.20 Angiodysplasia of colon without hemorrhage; D18.02 Hemangioma of intracranial structures; D18.00 Hemangioma unspecified site; E03.9 Hypothyroidism, unspecified; E66.9 Obesity, unspecified; D64.9 Anemia, unspecified; G47.30 Sleep apnea, unspecified; J44.9 Chronic obstructive pulmonary disease, unspecified; E11.9 Type 2 diabetes mellitus without complications; I36.1 Nonrheumatic tricuspid (valve) insufficiency; I27.21 Secondary pulmonary arterial hypertension; I42.8 Other cardiomyopathies; I05.2 Rheumatic mitral stenosis with insufficiency; I06.2 Rheumatic aortic stenosis with insufficiency; I47.2 Ventricular tachycardia; I48.11 Longstanding persistent atrial fibrillation; I50.42 Chronic combined systolic (congestive) and diastolic (congestive) heart failure; Z87.891 Personal history of nicotine dependence; I11.0 Hypertensive heart disease with heart failure
CPT/HCPCS: 36010; 75825; 76937; J7040; Q9967; C1769